=== PATIENT | male | born 1935 | race Caucasian/White ===

== ENCOUNTER → 2018-03-16 11:30 | Outpatient (CLI) | payer OTHER, SELFPAY ==
--- NOTE | 2018-03-16 | DI.RAD.S_ITS ---
PROCEDURE: XR CHEST 2V INDICATIONS: CHF TECHNIQUE: 2 views of the chest were acquired. COMPARISON: [facility], CT, ANGIO CHEST ABDOMEN PELVIS, 02/24/2018, 7:27. [facility], CR, CHEST FOR PICC PLACEMENT, 11/25/2017, 10:14. [facility], CR, CHEST 1 VIEW, 11/25/2017, 6:14. [facility], CT, PE STUDY (CTA CHEST), 11/24/2017, 9:44. [facility], CR, CHEST 1 VIEW, 11/24/2017, 7:38. [facility], CR, CHEST 1 VIEW, 07/07/2017, 14:15. [facility], CR, CHEST 1 VIEW, 11/05/2016, 16:07. [facility], CR, CHEST 1 VIEW, 11/29/2017, 10:32. FINDINGS: Surgical changes and devices: Sternal wires consistent with previous bypass procedure as well as bowel replacement are noted. Lungs and pleura: Minimal blunting of the costophrenic angles bilaterally, right. Unchanged calcified nodule overlying the left upper lobe. Mediastinum: Mediastinal contours are normal. Heart size is normal. Bones and chest wall: No suspicious bony abnormalities. Soft tissues appear unremarkable. IMPRESSION: Minimal effusions bilaterally. Dictated by: Dianne Lozano M.D. on 03/16/2018 at 15:30 Approved by: Dianne Lozano M.D. on 03/16/2018 at 15:30
[2018-03-16 12:34] LABS: BUN Creatinine Ratio 12.2 (6-22); Calcium 8.9 mg/dL (8.4-10.2); Estimated Glomerular Filt Rate > 60.0 mL/min (>60); Glucose 115 mg/dL (80-110); HEMOLYSIS < 15 (0-50); Potassium 5.4 mmol/L (3.4-5.1); Sodium 140 mmol/L (137-145)
[2018-03-16 12:37] LABS: Add Manual Diff / Slide Review NO; Basophils Percent Auto 0.8 % (0-2); Eosinophils Percent Auto 0.3 % (2-4); Hematocrit 36.6 % (41-53); Hemoglobin 12.1 g/dL (13.5-17.5); Lymphocytes Percent Auto 7.7 % (25-40); Mean Corpuscular HGB Conc 33.1 % (30-36); Mean Corpuscular Hemoglobin 27.9 PG (26-34); Mean Corpuscular Volume 84.4 fL (80-100); Monocytes Percent Auto 9.9 % (3-14); Neutrophils Absolute Auto 7600 /uL (3000-5900); Neutrophils Percent Auto 81.3 % (50-75); Platelet Count 454 X10^3/uL (150-400); Red Blood Cell Count 4.33 X10^6/uL (4.5-5.9); Red Cell Distribution Width 15.7 % (11.6-14.8); White Blood Cell Count 9.3 X10^3/uL (4.5-11.0)
== END ==
PROVIDERS: Family Provider Internal Medicine; PCP Internal Medicine; Visit Provider Internal Medicine
DX: I48.91 Unspecified atrial fibrillation (principal); R06.00 Dyspnea, unspecified; D50.0 Iron deficiency anemia secondary to blood loss (chronic); I50.9 Heart failure, unspecified
CPT/HCPCS: 36415; 71046; 80048; 83880; 85025

== ENCOUNTER → 2018-04-17 09:34 | Outpatient (CLI) | payer OTHER, SELFPAY ==
[2018-04-17 10:35] LABS: BUN Creatinine Ratio 15.6 (6-22); Blood Urea Nitrogen 14 mg/dL (9-20); Calcium 9.5 mg/dL (8.4-10.2); Carbon Dioxide 30 mmol/L (22-32); Chloride 97 mmol/L (98-107); Estimated Glomerular Filt Rate > 60.0 mL/min (>60); Glucose 109 mg/dL (80-110); HEMOLYSIS < 15 (0-50); Sodium 143 mmol/L (137-145)
== END ==
PROVIDERS: Family Provider Internal Medicine; PCP Internal Medicine; Visit Provider Internal Medicine Cardiovascular Disease
DX: I48.2 Chronic atrial fibrillation (principal)
CPT/HCPCS: 36415; 80048

== ENCOUNTER → 2018-04-28 08:18 | Outpatient (CLI) | payer OTHER, SELFPAY ==
--- NOTE | 2018-04-28 | DI.US.S_ITS ---
PROCEDURE: US ABDOMEN COMPLETE INDICATIONS: gallstones TECHNIQUE: Real-time scanning was performed of the abdominal and retroperitoneal organs, with image documentation. COMPARISON: [facility], MR, ABDOMEN WITHOUT CONTRAST, 02/24/2018, 12:31. [facility], US, ABDOMEN COMPLETE, 02/24/2018, 9:27. [facility], CT, ANGIO CHEST ABDOMEN PELVIS, 02/24/2018, 7:27. FINDINGS: Liver: The liver is normal in size and echogenicity. No focal liver lesions are evident. Gallbladder: The gallbladder is normal in size and contains at least 2 prominent gallstones measuring up to 3 cm in diameter. There also appears to be a 1 cm stone within the region of the neck of the gallbladder. Borderline thickening of the wall of the gallbladder is present there is no pericholecystic fluid. Biliary ducts: Intrahepatic bile ducts are non-dilated. Extrahepatic bile duct caliber measures 7 mm. Normal is 6-7 mm or less in diameter, or 10 mm or less post-cholecystectomy. Pancreas: Visualized portions of the pancreas are sonographically normal. Spleen: Spleen is normal in size and homogeneous in echotexture. Kidneys: Kidneys are normal in size and echotexture. Right kidney measures 11.5 cm long; left kidney measures 12.10 cm long. No hydronephrosis or shadowing nephrolithiasis. No solid masses. Aorta: Visualized aorta is normal in caliber at less than 3 cm. there is aortic atherosclerosis. Iliacs: Proximal common iliac arteries are normal in caliber at less than 2.5 cm. IVC: Intrahepatic inferior vena cava is patent. Miscellaneous: No free abdominal fluid. IMPRESSION: 1. Cholelithiasis with mild gallbladder wall thickening. Please for the clinically to exclude cholecystitis. 2. Unremarkable kidneys. No hydronephrosis. Dictated by: Eladio Mendez M.D. on 04/28/2018 at 10:46 Approved by: Eladio Mendez M.D. on 04/28/2018 at 10:50
== END ==
PROVIDERS: Family Provider Internal Medicine; PCP Internal Medicine; Visit Provider Internal Medicine
DX: K80.20 Calculus of gallbladder without cholecystitis without obstruction (principal)
CPT/HCPCS: 76700

== ENCOUNTER → 2018-05-11 10:27 | Outpatient (CLI) | payer OTHER, SELFPAY ==
[2018-05-11 11:22] LABS: Add Manual Diff / Slide Review NO; Basophils Percent Auto 0.7 % (0-2); Eosinophils Percent Auto 2.8 % (2-4); Hematocrit 32.8 % (41-53); Hemoglobin 10.3 g/dL (13.5-17.5); Lymphocytes Percent Auto 8.2 % (25-40); Mean Corpuscular HGB Conc 31.5 % (30-36); Mean Corpuscular Hemoglobin 25.3 PG (26-34); Mean Corpuscular Volume 80.4 fL (80-100); Monocytes Percent Auto 11.1 % (3-14); Neutrophils Absolute Auto 10200 /uL (3000-5900); Neutrophils Percent Auto 77.2 % (50-75); Platelet Count 362 X10^3/uL (150-400); Red Blood Cell Count 4.08 X10^6/uL (4.5-5.9); Red Cell Distribution Width 15.6 % (11.6-14.8); White Blood Cell Count 13.2 X10^3/uL (4.5-11.0)
[2018-05-11 11:57] LABS: Alanine Aminotransferase 20 IU/L (21-72); Albumin 4.3 g/dL (3.5-5.0); Albumin Globulin Ratio 1.2 (1.0-2.8); Alkaline Phosphatase 94 U/L (38-126); Aspartate Aminotransferase 19 IU/L (17-59); BUN Creatinine Ratio 22.2 (6-22); Bilirubin Total 0.3 mg/dL (0.2-1.3); Blood Urea Nitrogen 20 mg/dL (9-20); Calcium 9.4 mg/dL (8.4-10.2); Carbon Dioxide 32 mmol/L (22-32); Chloride 99 mmol/L (98-107); Estimated Glomerular Filt Rate > 60.0 mL/min (>60); Globulin 3.5 g/dL (1.7-4.1); Glucose 113 mg/dL (80-110); HEMOLYSIS < 15 (0-50); Lipase 89 U/L (23-300); Potassium 4.8 mmol/L (3.4-5.1); Sodium 143 mmol/L (137-145); Total Protein 7.8 g/dL (6.3-8.2)
== END ==
PROVIDERS: Surgery; Family Provider Internal Medicine; PCP Internal Medicine; Visit Provider Internal Medicine
DX: K85.90 Acute pancreatitis without necrosis or infection, unspecified (principal)
CPT/HCPCS: 36415; 80053; 83690; 85025

== ENCOUNTER 2018-05-16 14:11 | Day surgery (SDC) | payer OTHER, SELFPAY ==
[2018-05-15 11:07] VITALS: BMI 25.0
[2018-05-16] VITALS (8 sets, daily range): BP systolic 114–137; BP diastolic 48–73; PULSE 67–96; RESP 14–87; TEMP 36.2–36.7; O2SAT 94–98; BMI 25.0
[2018-05-16] MEDS: LACTATED RINGERS 1,000 ML 100 ML IV (15:05)
--- NOTE | 2018-05-16 16:12 | PM.PREOP ---
Pre-operative Note Interval Note Pre-op Check: Yes History & Physical Reviewed by Physician and Yes Exam Performed Changes: No
[2018-05-16] MEDS: CEFAZOLIN 2 GM/100 ML FROZ.PIGGY IV (16:25)
--- NOTE | 2018-05-16 16:49 | SUR.OPER ---
Supine on padded OR bed, head on pillow, arms secured on padded arm boards at <90 degrees abduction, legs uncrossed, safety belt at thigh, tape over blanket over lower legs, foot board.
[2018-05-16] MEDS: BUPIVACAINE 0.5% (PF) 30 ML VIAL INJ (17:00)
[2018-05-16] MEDS: LIDOCAINE 1% W/EPI INJ 20 ML INJ (17:01)
--- NOTE | 2018-05-16 18:07 | PM.OP.1 ---
Operative Date/Time/Diagnoses Date of procedure: 05/16/18 Time of procedure: 18:08 Pre-op diagnosis: Chronic cholecystitis secondary to cholelithiasis with history of gallstone pancreatitis Post-op diagnosis: same Procedure & Clinicians Procedure: 1. Laparoscopic cholecystectomy 2. Incidental repair of umbilical hernia incorporated into closure of umbilical incision at trocar site Same procedure as scheduled: Yes Indications: 82-year-old male with recent episode of severe gallstone pancreatitis approximately 3 months ago now subsequently resolved with conservative management. He was found to have significant cholelithiasis, and he remains somewhat symptomatic with statistical risk of recurrent pancreatitis or choledocholithiasis. Therefore laparoscopic cholecystectomy was recommended electively. Surgeon: José Apple Click Yes if Unassisted: Yes Anesthesia Type: General Operative Notes Findings: 1. Chronic cholecystitis as evidenced by significant adhesions between omentum and thickened gallbladder 2. Evidence of smoldering acute cholecystitis due to gallbladder wall edema noted during the dissection 3. Granulomatous liver but without obvious lesions 4. Small 1 cm umbilical hernia defect noted to be at the inferior aspect of the umbilical trocar incision 5. Significant cholelithiasis with multiple extremely large and other small stones Closure Type: primary Specimen(s): other (Gallbladder) Implants & Drains: None Estimated Blood Loss (mL): 40 Blood products transfused: none Procedure in detail: After obtaining informed consent the patient was brought to the operating room placed supine on the table. After satisfactory induction of anesthesia the abdomen was prepped and draped in usual sterile fashion. A SCOAP time-out was performed per standard protocol. A 1 :1 mixture 1% lidocaine with 1 100,000 epinephrine and 0.5% plain Marcaine was injected in the skin and subcutaneous tissue at the superior aspect of the umbilicus for postoperative analgesia. Vertical midline incision was created for distance of approximately 3 cm at the superior aspect of the umbilicus using a 11 scalpel blade. Blunt dissection revealed the rectus fascia which was divided in the midline with a 11. Scalpel blade under direct visualization. The adjacent hernia defect was subsequently incorporated into the incision using Metzenbaum scissors. Pina clamps were used to secure the edges of the fascia bilaterally and elevated into the operative field. Interrupted 0 Vicryl suture were then placed superiorly and inferiorly along the fascia and secured with hemostats. Underlying peritoneum was visualized and entered under direct visualization with Roselyn clamp. A blunt 12 mm James trocar was inserted and a carbon dioxide pneumoperitoneum created after sweeping the he is in those from the umbilical hernia bluntly with the surgeon's finger. Abdomen was visually explored with a 30 degree 5 mm trocar. Findings are as above. Under direct laparoscopic visualization site was chosen for placement of a epigastric 5 mm trocar after placing the patient in reverse Trendelenburg position. Local anesthesia was achieved and the skin incision created with 11 scalpel blade followed by insertion of the 5 mm trocar under laparoscopic visualization. In a similar fashion to individual 5 mm trocars were placed in the right lateral abdomen. Ratcheted grasper was used to secure the fundus of the gallbladder which was just visible above the significant adhesions in the right upper quadrant. Fundus of the gallbladder was then retracted medially and superiorly over the liver edge. A Bret grasper as well as Maryland dissector were used to take down the adhesions meticulously off of the gallbladder wall. Hemostasis was achieved with the monopolar cautery. Meticulous dissection in the triangle of Calot was then performed with a combination of the Maryland dissector and the Kittner dissector. The dissection was somewhat difficult due to the significant adhesions but the structures were eventually identified and skeletonized of overlying tissue. Cystic duct was clearly identified and encircled thereby isolating the structure and clearly visualizing its junction with the infundibulum of the gallbladder. The critical view of the liver bed through the avascular window between the cystic duct and cystic artery was clearly achieved. Cystic artery was cleared of overlying tissue in a similar fashion. Three clips were placed proximally on the cystic duct and 3 clips placed proximally on the cystic artery. One clip was placed distally on each structure at its junction with the gallbladder. Laparoscopic scissors was employed to divide the structures. Monopolar cautery was then used to dissect the gallbladder from its attachment to the liver bed. Should note that there were dense adhesions, particularly at the fundus of the gallbladder, that made removing the gallbladder itself quite difficult from this portion of the liver bed. The 2 structures were densely adherent. Gallbladder was eventually liberated without violating the lumen. There was no bile spillage. Gallbladder was placed in an endo-pouch and retrieved through the umbilical incision. I should note that the fascial incision had to be significantly lengthened in order to remove the thickened gallbladder with its associated multiple large gallstones. Specimen was sent for permanent section. Liver bed was irrigated with copious amount sterile saline solution and hemostasis achieved with the monopolar cautery. Meticulous examination showed the clips to be in good position on the cystic duct and cystic artery. Hemostasis was verified and there was absolutely no evidence of bile leak. Again, the liver bed was also meticulously examined and noted to be hemostatic. Patient was returned to the supine position in the right upper quadrant was irrigated with copious amounts of sterile saline solution which was suctioned and noted to be clear. Instruments and trocars were removed under direct visualization and hemostasis verified. Carbon dioxide was evacuated. Fascia at the length and umbilical incision was closed with a total of 4 individual interrupted 0 Vicryl suture. Again, the hernia defect was repaired primarily as part of the closure. Skin at all 4 incisions was then closed in a running subcuticular fashion with 4 0 Monocryl suture. Dermal adhesive was placed on the skin. Anesthesia was reversed and patient extubated in the operating room. He was taken recovery in stable condition. Complications: none Condition: stable Disposition: PACU Plan for aftercare: 1. Discharge to home 2. Follow up in surgery Clinic in 2 weeks
--- NOTE | 2018-05-16 18:33 | SUR.PHASEI ---
stable pacu stay, pt still needing minimal 02, to opd, abdomen with glue intact, capstick to lips.
--- NOTE | 2018-05-16 18:54 | SUR.PHASEII ---
PT BROUGHT TO [facility], DAUGHTERS CALLED. ON WEANING OFF. AWAKE DRINKING COFFEE NO PAIN NO NAUSEA, ABDOMEN WITH INTACT INCISIONS.
--- NOTE | 2018-05-16 19:33 | SUR.PHASEII ---
daughters arrived, all voiced an understanding of d/c instructions, pt given an incentive spirometer to help prevent pneumonia, pt used in the recent past. assisted pt to dress when ready to leave, pt left in stable condition.
== END 2018-05-16 19:30 | disposition home or self-care (01) ==
PROVIDERS: PCP Internal Medicine; Visit Provider Surgery
PROC: 0FT44ZZ Resection of Gallbladder, Percutaneous Endoscopic Approach (ICD-10-PCS; CPT 47562; principal; 2018-05-16 14:45)
DX: K80.10 Calculus of gallbladder with chronic cholecystitis without obstruction (principal); K42.9 Umbilical hernia without obstruction or gangrene; K66.0 Peritoneal adhesions (postprocedural) (postinfection)
CPT/HCPCS: 47562; J0690; J2405; J2704; J3010

== ENCOUNTER 2018-05-21 11:45 | Emergency (ER) | payer OTHER, SELFPAY ==
[2018-05-21] VITALS (9 sets, daily range): BP systolic 115–152; BP diastolic 49–87; PULSE 92–152; RESP 13–23; TEMP 36.8–36.9; O2SAT 94–98; BMI 25.0
[2018-05-21 12:29] LABS: Add Manual Diff / Slide Review NO; Basophils Percent Auto 0.4 % (0-2); Eosinophils Percent Auto 0.5 % (2-4); Hematocrit 28.1 % (41-53); Hemoglobin 8.8 g/dL (13.5-17.5); Lymphocytes Percent Auto 6.7 % (25-40); Mean Corpuscular HGB Conc 31.4 % (30-36); Mean Corpuscular Hemoglobin 24.6 PG (26-34); Mean Corpuscular Volume 78.5 fL (80-100); Monocytes Percent Auto 10.4 % (3-14); Neutrophils Absolute Auto 10800 /uL (3000-5900); Platelet Count 424 X10^3/uL (150-400); Red Blood Cell Count 3.58 X10^6/uL (4.5-5.9); Red Cell Distribution Width 16.1 % (11.6-14.8); White Blood Cell Count 13.2 X10^3/uL (4.5-11.0)
[2018-05-21 12:41] LABS: INR 1.3 (0.9-1.3); Prothrombin Time 14.6 SECONDS (10.1-12.7)
[2018-05-21 12:44] LABS: PTT Partial Thromboplastin Tim 29 SECONDS (26.4-36.2)
[2018-05-21 12:45] LABS: Alanine Aminotransferase 22 IU/L (21-72); Albumin 4.2 g/dL (3.5-5.0); Albumin Globulin Ratio 1.4 (1.0-2.8); Alkaline Phosphatase 122 U/L (38-126); Aspartate Aminotransferase 24 IU/L (17-59); BUN Creatinine Ratio 21.3 (6-22); Bilirubin Total 0.5 mg/dL (0.2-1.3); Blood Urea Nitrogen 17 mg/dL (9-20); Calcium 8.6 mg/dL (8.4-10.2); Carbon Dioxide 32 mmol/L (22-32); Chloride 96 mmol/L (98-107); Estimated Glomerular Filt Rate > 60.0 mL/min (>60); Globulin 3.1 g/dL (1.7-4.1); Glucose 138 mg/dL (80-110); HEMOLYSIS < 15 (0-50); Lactate (Lactic Acid) 2.2 mmol/L (0.7-2.1); Lipase 130 U/L (23-300); Potassium 3.8 mmol/L (3.4-5.1); Sodium 139 mmol/L (137-145); Total Protein 7.3 g/dL (6.3-8.2)
[2018-05-21] MEDS: SODIUM CHLORIDE 0.9% 1,000 ML 1000 ML IV (13:00)
[2018-05-21] MEDS: PANTOPRAZOLE 40 MG VIAL IV (13:05)
[2018-05-21 16:23] LABS: Reflexed Lactate in 2 Hours Y
[2018-05-21 16:49] LABS: Lactate 2HR (Lactic Acid Rflx) 0.8 mmol/L (0.7-2.1)
--- NOTE | 2018-05-21 17:04 | ED_ITS ---
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 Patient denies chest pain, shortness breath, history of liver disease, EtOH abuse, anticoagulation, or antiplatelet medication use. M/S/F/SocHx notable for: mechanical aortic valve, atrial fibrillation/atrial flutter, pancreatitis, hepatitis C infection, hyperparathyroidism, pulmonary emphysema, rheumatoid arthritis, microcytic anemia; remainder reviewed with patient and in chart. ROS: Negative constitutional, eye, cardiovascular, pulmonary, GI, , MSK, skin , neurologic, psychiatric, endocrine unless noted in the HPI. Exam Gen: Pleasant, non-toxic appearing, resting comfortably. HEENT: NC, AT, PEERL, EOMI. Resp: Clear to auscultation bilaterally, normal work of breathing, no accessory muscle usage. Card: tachycardic, irregular rate and rhythm with no murmurs, rubs, or gallops, extremities warm and well perfused. GI: Non-tender to palpation throughout all quadrants, no focal tenderness at McBurney's point, negative Shah's sign, non-distended, no rebound or guarding. : No suprapubic tenderness to palpation. MSK: No visible deformities, strength and tone without visually appreciable deficit. Skin: Normal color with no visible lesions. Neuro: AO x 3, no facial asymmetry, vision and hearing WNL. Psych: Mood and affect appropriate. Labs / Imaging: WBC 13.2, HB 8.8, PT/INR 1.3, sodium 139, potassium 3.8, lactic acid 2.2 FOBT pending EKG: SR 93 bpm, frequent PACs and PVCs. No significant ST segment elevations or depressions. MDM Previous chart, nursing note, labs, imaging, and vitals reviewed. 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 Evaluation: given the history of indolent GI bleed with a recent increase in dark tarry stools, new anemia, and absence of a variceal history suspect AVMs. Type and screen sent, patient with normalization of tachycardia with 1 L NS given, protonix also given. Patient accepted in transfer to [place] for further care and evaluation. Impression: suspected GI bleed. (please reference below for remainder of encounter information) Related Data Home Medications Medication Instructions Recorded Confirmed atorvastatin [Lipitor] 20 mg PO HS #0 05/16/17 05/21/18 loratadine 10 mg PO QDAY #0 07/07/17 05/21/18 cyanocobalamin (vitamin B-12) 100 mcg PO QDAY #0 11/24/17 05/21/18 [Vitamin B-12] lorazepam 1 mg PO HSP PRN #0 11/24/17 05/21/18 multivitamin [Multiple Vitamins] 1 tab PO QDAY #0 11/24/17 05/21/18 amitriptyline 25 mg tablet 25 mg PO BEDTIME 05/11/18 05/21/18 ascorbic acid (vitamin C) [Vitamin 500 mg PO BID 05/21/18 05/21/18 C] cholecalciferol (vitamin D3) 2,000 unit PO DAILY 05/21/18 05/21/18 [Vitamin D3] cyanocobalamin (vitamin B-12) 100 mcg PO DAILY 05/21/18 05/21/18 [Vitamin B-12] diltiazem HCl 180 mg PO BID 05/21/18 05/21/18 famotidine 20 mg PO BID 05/21/18 05/21/18 metoprolol succinate [Toprol XL] 50 mg PO DAILY 05/21/18 05/21/18 metoprolol succinate [Toprol XL] 100 mg PO BID 05/21/18 05/21/18 Previous Rx's Medication Instructions Recorded furosemide [Lasix] 20 mg PO QDAY #30 tab 11/30/17 Allergies Allergy/AdvReac Type Severity Reaction Status Date / Time aspirin [ASPIRIN] Allergy Intermediate HIVES, Verified 05/16/18 15:06 EARS RING lactose [LACTOSE] Allergy Unknown Verified 05/16/18 15:06 PFSH Medical History Acquired arteriovenous malformation of stomach (Acute) Aortic valvular stenosis (Acute) Atrial fibrillation (Acute) Cholelithiasis (Acute) Chronic obstructive pulmonary disease (Acute) Gallstone pancreatitis (Acute) Generalized anxiety disorder (Acute) History of gastrointestinal hemorrhage (Acute) History of tobacco abuse (Acute) Hyperlipidemia (Acute) Hypertension (Acute) Restrictive lung disease (Acute) Rheumatoid arthritis (Acute) Surgical History History of aortic valve replacement (Acute) History of colonoscopy (Acute) History of esophagogastroduodenoscopy (EGD) (Acute) History of sinus surgery (Acute) History of tricuspid valve annuloplasty (Acute) Status post mitral valve annuloplasty (Acute) H/O sinus surgery (Resolved) History of tonsillectomy (Resolved) Social History household members: none Smoking Status: Former smoker Tobacco: How many years used: 60 alcohol intake: former substance use type: does not use Exam Initial Vital Signs Initial Vital Signs: Vital Signs Temperature 98.2 F 05/21/18 11:56 Pulse Rate 152 H 05/21/18 11:56 Respiratory Rate 22 05/21/18 11:56 Blood Pressure 141/74 H 05/21/18 11:56 Pulse Oximetry 96 05/21/18 11:56 Course Orders Ordered: ED Orders 05/21/18 11:50 Complete Blood Count AUTO DIFF Stat Comprehensive Metabolic Panel Stat Lactate (Lactic Acid) Stat Lipase Stat Partial Thromboplastin Time Stat Prothrombin Time INR Stat Type and Screen Stat 05/21/18 11:53 EKG-12 Lead Stat 05/21/18 13:19 EKG-12 Lead Stat 05/21/18 16:30 Lactate 4HR (Lactic Acid Rflx) Stat Discontinued Medications Sodium Chloride (Normal Saline 0.9%) 1,000 mls @ 1,000 mls/hr IV BOLUS ONE Stop: 05/21/18 13:33 Last Infusion: 05/21/18 15:23 Dose: 0 mls/hr Admin: 05/21/18 13:00 Dose: 1,000 mls/hr Pantoprazole Sodium (Protonix) 40 mg IV NOW ONE Stop: 05/21/18 13:05 Last Admin: 05/21/18 13:05 Dose: 40 mg Vital Signs - 8 hr 05/21/18 11:56 05/21/18 12:07 05/21/18 12:30 Temperature 98.2 F Pulse Rate 152 H 132 H 112 H Respiratory Rate 22 18 18 Blood Pressure 141/74 H Blood Pressure [Right Arm] 152/87 H 116/67 Pulse Oximetry 96 98 96 05/21/18 13:00 05/21/18 13:40 05/21/18 16:00 Temperature Pulse Rate 95 H 103 H 101 H Respiratory Rate 21 17 23 Blood Pressure Blood Pressure [Right Arm] 115/75 128/49 H 125/58 H Pulse Oximetry 97 96 98 MDM - Abdominal Pain Lab Data Result diagrams: 05/21/18 11:50 05/21/18 11:50 Lab Results 05/21/18 05/21/18 05/21/18 Range/Units 11:50 11:50 11:50 WBC 13.2 H (4.5-11.0) X10^3/uL RBC 3.58 L (4.5-5.9) X10^6/uL Hgb 8.8 L (13.5-17.5) g/dL Hct 28.1 L (41-53) % MCV 78.5 L (80-100) fL MCH 24.6 L (26-34) PG MCHC 31.4 (30-36) % RDW 16.1 H (11.6-14.8) % Plt Count 424 H (150-400) X10^3/uL Neut % (Auto) 82.0 H (50-75) % Lymph % (Auto) 6.7 L (25-40) % Motley % (Auto) 10.4 (3-14) % Eos % (Auto) 0.5 L (2-4) % Baso % (Auto) 0.4 (0-2) % Neut # (Auto) 50575 H (1671-5296) /uL PT 14.6 H (10.1-12.7) SECONDS INR 1.3 (0.9-1.3) APTT 29 (26.4-36.2) SECONDS Sodium 139 (137-145) mmol/L Potassium 3.8 (3.4-5.1) mmol/L Chloride 96 L (98-107) mmol/L Carbon Dioxide 32 (22-32) mmol/L BUN 17 (9-20) mg/dL Creatinine 0.80 (0.66-1.25) mg/dL Estimated GFR > 60.0 (>60) mL/min BUN/Creatinine Ratio 21.3 (6-22) Glucose 138 H (80-110) mg/dL Lactate (0.7-2.1) mmol/L Calcium 8.6 (8.4-10.2) mg/dL Total Bilirubin 0.5 (0.2-1.3) mg/dL AST 24 (17-59) IU/L ALT 22 (21-72) IU/L Alkaline Phosphatase 122 (38-126) U/L Total Protein 7.3 (6.3-8.2) g/dL Albumin 4.2 (3.5-5.0) g/dL Globulin 3.1 (1.7-4.1) g/dL Albumin/Globulin Ratio 1.4 (1.0-2.8) Lipase 130 (23-300) U/L Blood Type Antibody Screen 05/21/18 05/21/18 05/21/18 Range/Units 11:50 11:50 16:30 WBC (4.5-11.0) X10^3/uL RBC (4.5-5.9) X10^6/uL Hgb (13.5-17.5) g/dL Hct (41-53) % MCV (80-100) fL MCH (26-34) PG MCHC (30-36) % RDW (11.6-14.8) % Plt Count (150-400) X10^3/uL Neut % (Auto) (50-75) % Lymph % (Auto) (25-40) % Motley % (Auto) (3-14) % Eos % (Auto) (2-4) % Baso % (Auto) (0-2) % Neut # (Auto) (8421-8299) /uL PT (10.1-12.7) SECONDS INR (0.9-1.3) APTT (26.4-36.2) SECONDS Sodium (137-145) mmol/L Potassium (3.4-5.1) mmol/L Chloride (98-107) mmol/L Carbon Dioxide (22-32) mmol/L BUN (9-20) mg/dL Creatinine (0.66-1.25) mg/dL Estimated GFR (>60) mL/min BUN/Creatinine Ratio (6-22) Glucose (80-110) mg/dL Lactate 2.2 H 0.8 (0.7-2.1) mmol/L Calcium (8.4-10.2) mg/dL Total Bilirubin (0.2-1.3) mg/dL AST (17-59) IU/L ALT (21-72) IU/L Alkaline Phosphatase (38-126) U/L Total Protein (6.3-8.2) g/dL Albumin (3.5-5.0) g/dL Globulin (1.7-4.1) g/dL Albumin/Globulin Ratio (1.0-2.8) Lipase (23-300) U/L Blood Type O Positive Antibody Screen Negative Discharge Plan Departure Prescriptions: No Action atorvastatin [Lipitor] 20 MG tablet 20 mg PO HS Qty: 0 RF: 0 loratadine 10 MG tablet 10 mg PO QDAY Qty: 0 RF: 0 multivitamin [Multiple Vitamins] 1 EACH tablet 1 tab PO QDAY Qty: 0 RF: 0 cyanocobalamin (vitamin B-12) [Vitamin B-12] 50 MCG lozenge 100 mcg PO QDAY Qty: 0 RF: 0 lorazepam 1 MG tablet 1 mg PO HSP PRN (Reason: Sleep) Qty: 0 RF: 0 furosemide [Lasix] 20 MG tablet 20 mg PO QDAY Qty: 30 RF: 12 amitriptyline 25 mg tablet 25 mg PO BEDTIME RF: 0 cyanocobalamin (vitamin B-12) [Vitamin B-12] 100 mcg Tablet 100 mcg PO DAILY RF: 0 metoprolol succinate [Toprol XL] 100 mg Tablet Extended Release 24 Hr 50 mg PO DAILY RF: 0 ascorbic acid (vitamin C) [Vitamin C] 500 mg Tablet 500 mg PO BID RF: 0 cholecalciferol (vitamin D3) [Vitamin D3] 1,000 unit Tablet 2,000 unit PO DAILY RF: 0 diltiazem HCl 180 MG capsule,extended release 24hr 180 mg PO BID RF: 0 metoprolol succinate [Toprol XL] 100 MG tablet extended release 24 hr 100 mg PO BID RF: 0 famotidine 20 mg Tablet 20 mg PO BID RF: 0
== END 2018-05-21 20:00 | disposition short-term general hospital (02) ==
PROVIDERS: Emergency Provider Emergency Medicine; PCP Internal Medicine
DX: K92.2 Gastrointestinal hemorrhage, unspecified (principal)
CPT/HCPCS: 36415; 36591; 80053; 83605; 83690; 85025; 85610; 85730; 86850; 86900; 86901; 93005; 96361; 96374; 99284; 99285; C9113

== ENCOUNTER → 2018-06-29 08:25 | Outpatient (CLI) | payer OTHER, SELFPAY ==
[2018-06-29 10:30] LABS: Estimated Glomerular Filt Rate > 60.0 mL/min (>60)
== END ==
PROVIDERS: PCP Internal Medicine; Visit Provider Physician Assistant
DX: Z87.19 Personal history of other diseases of the digestive system (principal)
CPT/HCPCS: 36415; 82565

== ENCOUNTER → 2018-06-30 07:46 | Outpatient (CLI) | payer OTHER, SELFPAY ==
--- NOTE | 2018-06-30 09:02 | DI.CT.S_ITS ---
PROCEDURE: CT ABDOMEN PELVIS W CON INDICATIONS: HISTORY OF PANCREATITIS. Patient states possible stomach mass. TECHNIQUE: After the administration of oral and intravenous contrast, 5 mm thick sections acquired from the diaphragms to the symphysis. 5 mm thick coronal and sagittal reformats were performed. For radiation dose reduction, the following was used: automated exposure control, adjustment of mA and/or kV according to patient size. COMPARISON: None. FINDINGS: Image quality: Excellent. ABDOMEN: Lung bases: Lung bases are clear. Heart size is normal. Solid organs: Liver demonstrates a mildly nodular contour and is mildly hypoattenuating relative to the spleen. Gallbladder surgically absent. No intrahepatic or extrahepatic biliary ductal dilatation. The pancreas and spleen are unremarkable. There is mild thickening of the left adrenal gland relative to the right. Subcentimeter hypodense foci within the left kidney are too small fully characterize on this exam but likely represent renal cysts. No hydronephrosis or nephrolithiasis. Peritoneum and bowel: Diffuse colonic diverticulosis without evidence of acute diverticulitis. No free fluid or air. Nodes and vessels: No retroperitoneal or mesenteric adenopathy. Aorta and inferior vena cava are normal in caliber. Severe calcified and noncalcified plaque along the abdominal aorta and branch vessels. Miscellaneous: No ventral hernias. PELVIS: Genitourinary: Bladder wall thickness is normal. Miscellaneous: There are small bilateral fat-containing inguinal hernias. Bones: There is a T11 superior endplates Schmorl's node. There are mild multilevel degenerative changes of the spine. A posterior disc osteophyte complex at L5-S1 results in mild spinal canal stenosis at this level. IMPRESSION: #1. No CT evidence of acute pancreatitis. #2. No convincing CT evidence of a gastric mass (with regards to patient provided history). Consider followup esophagogastroduodenoscopy if there is continued clinical concern, if one has not been recently performed. Dictated by: Rodriguez Ortega M.D. on 06/30/2018 at 11:26 Approved by: Rodriguez Ortega M.D. on 06/30/2018 at 11:39
== END ==
PROVIDERS: Family Provider Internal Medicine; PCP Internal Medicine; Visit Provider Physician Assistant
DX: Z09 Encounter for follow-up examination after completed treatment for conditions other than malignant neoplasm (principal); K57.90 Diverticulosis of intestine, part unspecified, without perforation or abscess without bleeding; K40.20 Bilateral inguinal hernia, without obstruction or gangrene, not specified as recurrent; Z90.49 Acquired absence of other specified parts of digestive tract; Z87.19 Personal history of other diseases of the digestive system
CPT/HCPCS: 74177; Q9967

== ENCOUNTER → 2018-09-08 13:30 | Oncology outpatient (ONC) | payer OTHER, SELFPAY ==
[2018-08-29] MEDS: IRON SUCROSE 200 MG in SODIUM CHLORIDE 0.9% 100 ML 220 ML IV (14:44)
[2018-08-29 14:48] VITALS: BP 135/69; PULSE 93; RESP 16; TEMP 36.7
[2018-08-31 13:24] VITALS: BP 132/77; PULSE 93; RESP 18; TEMP 37.1; O2SAT 97
[2018-08-31] MEDS: IRON SUCROSE 200 MG in SODIUM CHLORIDE 0.9% 100 ML 220 ML IV (13:49)
[2018-09-04 13:24] VITALS: BP 120/57; PULSE 70; RESP 16; TEMP 36.5; O2SAT 97
[2018-09-04] MEDS: IRON SUCROSE 200 MG in SODIUM CHLORIDE 0.9% 100 ML 220 ML IV (13:52)
[2018-09-06] MEDS: IRON SUCROSE 200 MG in SODIUM CHLORIDE 0.9% 100 ML 220 ML IV (14:04)
[2018-09-06 14:13] VITALS: BP 117/57; PULSE 70; RESP 16; TEMP 36.7; O2SAT 97
[2018-09-08] MEDS: IRON SUCROSE 200 MG in SODIUM CHLORIDE 0.9% 100 ML 220 ML IV (14:09)
[2018-09-08 14:14] VITALS: BP 118/61; PULSE 68; RESP 20; TEMP 36.9; O2SAT 97
== END ==
PROVIDERS: Family Provider Internal Medicine; PCP Internal Medicine; Visit Provider Internal Medicine
DX: D50.9 Iron deficiency anemia, unspecified (principal)
CPT/HCPCS: 96365; J1756

== ENCOUNTER → 2018-10-16 08:04 | Outpatient (CLI) | payer OTHER, SELFPAY ==
[2018-10-16 09:45] LABS: BUN Creatinine Ratio 16.4 (6-22); Blood Urea Nitrogen 18 mg/dL (9-20); Calcium 9.1 mg/dL (8.4-10.2); Carbon Dioxide 32 mmol/L (22-32); Chloride 97 mmol/L (98-107); Estimated Glomerular Filt Rate > 60.0 mL/min (>60); Glucose 140 mg/dL (80-110); HEMOLYSIS < 15 (0-50); Potassium 4.7 mmol/L (3.4-5.1); Sodium 142 mmol/L (137-145)
== END ==
PROVIDERS: Family Provider Internal Medicine; PCP Internal Medicine; Visit Provider Internal Medicine Cardiovascular Disease
DX: I10 Essential (primary) hypertension (principal)
CPT/HCPCS: 36415; 80048

== ENCOUNTER 2018-12-01 05:46 | Observation (INO) | payer OTHER, SELFPAY ==
[2018-12-01] VITALS (18 sets, daily range): BP systolic 113–162; BP diastolic 46–100; PULSE 70–130; RESP 17–32; TEMP 35.9–37; O2SAT 90–96; BMI 24.4; BMI 24.0
--- NOTE | 2018-12-01 | DI.ECHO.S_ITS ---
[facility] +---------+ : : [address] [place] : : : : [id number] : : : : Phone: [phone]+ Echocardiogram Report + + :Name: ADRIAN SOOD Study Date: 12/01/2018 Height: 72 in : :[facility] Weight: 177 lb : : Gender: Male BSA: 2.0 m2 : :: 1935 Age: 83 yrs BP: 129/62 mmHg: :Reason For Study: Congestive Heart Failure : :Ordering Physician: Dr. Bedolla : :Stickle Performed By: Kari Mendoza : :Referring: Airam Sánchez : + + Interpretation Summary Left ventricular systolic function is borderline reduced with the ejection fraction visually estimated to be 45-50% with a mild dyssynchronous contraction pattern, consistent with a conduction abnormality. There has been no significant change since the previous study. The right ventricle is normal size but right ventricular systolic function is mildly reduced and appears slightly less dynamic compared to the previous study. The right ventricular systolic pressure is estimated to be at least 41 mmHg based on an estimated right atrial pressure of 3 mm Hg, and it is likely similar to the previous study although the CVP appears to be significantly lower. The left atrium is mildly dilated. Right atrial size is normal but has mildly increased in size compared to the previous study. An annuloplasty ring is noted in the mitral position with mild mitral regurgitation that is unchanged compared to the previous study. An annuloplasty ring is noted in the tricuspid position with mild tricuspid regurgitation that is also unchanged from the previous study. 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 There has been no significant change since the previous study. The ascending aorta is mildly enlarged but is unchanged compared to the previous study. The patient was in atrial flutter with heart rates between 70-80 bpm during the exam which is unchanged compared to the previous study. Procedure: A two-dimensional transthoracic echocardiogram with color flow and Doppler was performed. The study quality was technically adequate. Comparison is made with the echocardiogram of 11-28-17. The patient was in atrial flutter with heart rates between 70-80 bpm during the exam. This is unchanged compared to the previous study. Left Ventricle: The left ventricle is mildly dilated. There is normal left ventricular wall thickness. Left ventricular systolic function is borderline reduced. The ejection fraction is estimated to be 45-50%. There is a mild dyssynchronous contraction pattern, consistent with a conduction abnormality. There are no focal wall motion abnormalities. This is similar compared to the previous study. Diastolic function could not be accurately assessed due to atrial fibrillation. There has been no significant change since the previous study. Right Ventricle: The right ventricle is normal size. Right ventricular systolic function is mildly reduced. This is slightly less dynamic compared to the previous study. Atria: The left atrium is mildly dilated. Right atrial size is normal. This is mildly increased in size compared to the previous study. The interatrial septum is intact with no evidence for an atrial septal defect. Mitral Valve: The mitral valve leaflets appear normal. There is no evidence of stenosis, fluttering, or prolapse. An annuloplasty ring is noted in the mitral position. There is no mitral valve stenosis. There is mild mitral regurgitation. This is unchanged compared to the previous study. Aortic Valve: There is a bioprosthetic aortic valve. The prosthetic aortic valve is well-seated. The gradients through the prosthetic aortic valve are within the normal range for this type of valve. This is unchanged compared to the previous study. The calculated aortic valve area is 1.3 cm2. The peak aortic velocity is 2.5 m/sec. The peak aortic velocity on the previous exam was 2.8 m/sec. The aortic valve mean gradient is 12 mmHg. Severity rastio is 0.29. No aortic regurgitation is present. There has been no significant change since the previous study. Tricuspid Valve: The tricuspid valve leaflets are thin and pliable. An annuloplasty ring is noted in the tricuspid position. There is mild tricuspid regurgitation. The right ventricular systolic pressure is estimated to be at least 41 mmHg based on an estimated right atrial pressure of 3 mm Hg. This is similar compared to the previous study. Pulmonic Valve: The pulmonic valve is normal in structure and function. There is trace pulmonic regurgitation. Great Vessels: The aortic root is normal size. The ascending aorta is mildly enlarged. This is unchanged compared to the previous study. The aortic arch could not be visualized. The IVC is of normal diameter and collapses greater than 50% with a sniff. This suggests a low right atrial pressure of 3 mm Hg. Pericardium/ Pleura There is no pericardial effusion. There is no pleural effusion. MMode/2D Measurements & Calculations LVIDd: 5.9 cm LVOT diam: 2.4 cm LVIDs: 4.3 cm Ao root diam: 3.4 cm FS: 26.3 % Aortic Jxn: 2.8 cm EPSS: 1.2 cm asc Aorta Diam: 3.7 cm IVSd: 0.99 cm LVPWd: 0.89 cm LV vee. diameter/BSA (cm/m^2): 2.9 LV sys. diameter/BSA (cm/m^2): 2.1 LA dimension: 4.2 cm RA long axis: 5.3 cm LA A2 area: 22.6 cm2 RA area: 19.7 cm2 LA A4 area: 24.2 cm2 RA vol: 62.1 ml LA length (vol): 6.1 cm RA : 30.7 ml/m2 LA vol: 75.6 ml IVC diam: 1.9 cm LA vol index: 37.4 ml/m2 RVDd major: 6.9 cm RVD1 (basal): 3.6 cm RVD2 (mid): 3.0 cm Doppler Measurements & Calculations Ao V2 max: 247.8 cm/sec LVOT Max Thomas: 82.4 cm/sec Ao V2 mean: 160.0 cm/sec LV V1 max P.7 mmHg Ao max P.6 mmHg LV V1 VTI: 15.9 cm Ao mean P.4 mmHg HECTOR(I,D): 1.3 cm2 Ao V2 VTI: 54.1 cm HECTOR(V,D): 1.5 cm2 sev ratio: 0.29 HECTOR indexed to BSA (cm^2/m^2): 0.66 MV E max thomas: 154.0 cm/sec TR max thomas: 306.2 cm/sec MV A max thomas: 71.2 cm/sec TR max P.5 mmHg MV E/A: 2.2 PA V2 max: 71.5 cm/sec Med Peak E' Thomas: 4.9 cm/sec PA V2 mean: 46.1 cm/sec E/E' med: 31.1 PA mean P.0 mmHg Lat Peak E' Thomas: 6.0 cm/sec PA Accel Time: 0.13 sec E/E' lat: 25.7 E/e' average: 28.4 MV dec time: 0.31 sec MV P1/2t: 95.3 msec MV P1/2t max thomas: 156.3 cm/sec SV(LVOT): 71.7 ml MVA(P1/2t): 2.3 cm2 Reading Physician:CAROL
[2018-12-01] MEDS: dilTIAZem 5 MG/ML SDV 10 MG IV (06:00)
--- NOTE | 2018-12-01 06:04 | DI.RAD.S_ITS ---
PROCEDURE: XR CHEST 1V INDICATIONS: dyspnea TECHNIQUE: One view of the chest was acquired. COMPARISON: [facility], CR, XR CHEST 2V, 03/16/2018, 11:23. FINDINGS: Surgical changes and devices: Median sternotomy and valvuloplasty changes. Lungs and pleura: Lungs are clear. No pleural effusions or pneumothorax. Mediastinum: Mediastinal contours appear normal. Heart size is normal. Bones and chest wall: No suspicious bony lesions. Overlying soft tissues appear unremarkable. IMPRESSION: 1. No acute process. 2. Postsurgical changes to the heart. Dictated by: Sheridan Plata M.D. on 12/01/2018 at 7:56 Approved by: Sheridan Plata M.D. on 12/01/2018 at 7:58
[2018-12-01] MEDS: FUROSEMIDE 40 MG/4 ML VIAL IV (06:06)
--- NOTE | 2018-12-01 06:06 | ED.SOB ---
HPI - SOB/Dyspnea General Chief Complaint: Shortness of Breath/Dyspnea Stated Complaint: shortness of breath, coughing Time Seen by Provider: 12/01/18 05:48 Source: patient Mode of arrival: ambulatory Limitations: no limitations History of Present Illness 83-year-old male, former smoker with extensive cardiac and COPD history presents with a chief complaint of worsening shortness of breath over the past few days. He denies fever or shaking chills nor chest pain. Any exertion or lying flat make him more short of breath. Conversation makes him short of breath. On arrival his pulse ox was 90% and he is speaking in 3 word sentences. He denies any weight gain. He states he has been taking his medications as directed which include Lasix, Cardizem but no anticoagulation. He denies any chest pain and there are no ischemic findings on his EKG. He denies any dietary indiscretion particularly salty foods or significant fluid intake. His cough is productive of whitish sputum MD Complaint: shortness of breath and cough Onset (ago): day(s) Severity: moderate Consistency/Duration: constant Relieving factors: rest and upright position Exacerbating factors: lying flat and exertion Known history of: COPD and congestive heart failure Associated symptoms: denies other symptoms Treatment prior to arrival: none Related Data Home oxygen amount: none Home Medications Medication Instructions Recorded Confirmed atorvastatin [Lipitor] 20 mg PO BEDTIME #0 05/16/17 12/01/18 loratadine 10 mg PO DAILY PRN #0 07/07/17 12/01/18 lorazepam 1 mg PO DAILY PRN #0 11/24/17 12/01/18 ascorbic acid (vitamin C) [Vitamin 1,000 mg PO DAILY 05/21/18 12/01/18 C] diltiazem HCl 360 mg PO DAILY 05/21/18 12/01/18 metoprolol succinate [Toprol XL] 200 mg PO QAM 05/21/18 12/01/18 Lactobacillus acidophilus 1 cap PO DAILY 12/01/18 12/01/18 [Probiotic] acetaminophen 500 mg PO Q6H PRN 12/01/18 12/01/18 amitriptyline 10 mg PO DAILY 12/01/18 12/01/18 cholecalciferol (vitamin D3) 4,000 unit PO DAILY 12/01/18 12/01/18 [Vitamin D3] coenzyme Q10 [CoQ-10] 300 mg PO DAILY 12/01/18 12/01/18 cyanocobalamin (vitamin B-12) 200 mcg PO DAILY 12/01/18 12/01/18 diphenhydramine-acetaminophen 2 tab PO BEDTIME PRN 12/01/18 12/01/18 [Tylenol PM Extra Strength] ferrous sulfate 325 mg PO DAILY 12/01/18 12/01/18 furosemide [Lasix] 40 mg PO DAILY 12/01/18 12/01/18 lisinopril 2.5 mg PO DAILY 12/01/18 12/01/18 metoprolol succinate 100 mg PO QPM 12/01/18 12/01/18 ejhbaxap-awe-BG-lycopen-lutein 1 tab PO DAILY 12/01/18 12/01/18 [Centrum Silver Men] pantoprazole 40 mg PO BID 12/01/18 12/01/18 sennosides-docusate sodium 1 tab PO DAILY 12/01/18 12/01/18 [Senna-S] tiotropium bromide [Spiriva 2 puff INHALATION DAILY 12/01/18 12/01/18 Respimat] Allergies Allergy/AdvReac Type Severity Reaction Status Date / Time aspirin [ASPIRIN] Allergy Intermediate HIVES, Verified 05/16/18 15:06 EARS RING lactose [LACTOSE] Allergy Unknown Verified 05/16/18 15:06 Review of Systems Constitutional Denies chills, Denies fever(s), Denies lethargy and Denies weakness Eyes Denies change in vision, Denies eye discharge, Denies irritation and Denies loss of vision ENT Ears, Nose, Mouth, and Throat: Denies change in voice, Denies neck pain and Denies sore throat Cardiovascular Denies chest pain, Denies irregular heart rhythm, Denies lightheadedness, Denies palpitations, Reports dyspnea, Reports dyspnea on exertion and Reports orthopnea Respiratory Denies cough, Reports dyspnea, Reports dyspnea on exertion and Denies wheezing Gastrointestinal Gastrointestinal: Denies abdominal pain, Denies change in bowel habits, Denies diarrhea, Denies nausea and Denies vomiting Genitourinary Denies hematuria, Denies flank pain, Denies urinary incontinence and Denies urinary urgency Musculoskeletal Denies neck pain Integumentary/Breasts Denies pruritus, Denies erythema, Denies rash and Denies wounds Neurologic Denies confusion, Denies loss of vision and Denies weakness Psychiatric Denies anxiety, Denies confusion, Denies depression, Denies homicidal ideation and Denies suicidal ideation Endocrine Denies palpitations Hematologic/Lymphatic Denies easy bruising Allergic/Immunologic Denies wheezing [facility] Medical History Acquired arteriovenous malformation of stomach (Acute) Aortic valvular stenosis (Acute) Atrial fibrillation (Acute) Cholelithiasis (Acute) Chronic obstructive pulmonary disease (Acute) Gallstone pancreatitis (Acute) Generalized anxiety disorder (Acute) History of gastrointestinal hemorrhage (Acute) History of tobacco abuse (Acute) Hyperlipidemia (Acute) Hypertension (Acute) Restrictive lung disease (Acute) Rheumatoid arthritis (Acute) Surgical History History of aortic valve replacement (Acute) History of colonoscopy (Acute) History of esophagogastroduodenoscopy (EGD) (Acute) History of sinus surgery (Acute) History of tricuspid valve annuloplasty (Acute) Status post mitral valve annuloplasty (Acute) H/O sinus surgery (Resolved) History of tonsillectomy (Resolved) Family History Father Heart disease Hypertension Mother Heart disease Sister Heart disease Cancer Social History household members: none Smoking Status: Former smoker Tobacco: How many years used: 60 alcohol intake: former substance use type: does not use Family History Father Heart disease Hypertension Mother Heart disease Sister Heart disease Cancer Social History household members: none Smoking Status: Former smoker Tobacco: How many years used: 60 alcohol intake: former substance use type: does not use Exam Narrative Exam Narrative: GENERAL: 83-year-old male in obvious respiratory distress with extensive use of accessory muscles, belly breathing pursed lip breathing, initial pulse ox 90%, 3 word sentences at most HEAD: Atraumatic. Normocephalic. No temporal or scalp tenderness. EYES: Pupils equal round and reactive. Extraocular motions intact. No scleral icterus. No injection or drainage. ENT: Nose without bleeding, purulent drainage or septal hematoma. Throat without erythema, tonsillar hypertrophy or exudate. Uvula midline. Airway patent. NECK: Trachea midline. No JVD or lymphadenopathy. Supple, nontender, no meningeal signs. CARDIOVASCULAR: Tachycardic and regular rhythm without murmurs, gallops, or rubs. RESPIRATORY: Wet sounding from the door. Widespread rhonchi with prolonged expiratory phase, tachypneic GASTROINTESTINAL: Abdomen soft, non-tender, nondistended. No hepato-splenomegaly, or palpable masses. No guarding. EXTREMITIES: No clubbing, cyanosis, or edema. No joint tenderness, effusion, or edema noted. BACK: Nontender without deformity or crepitance. No flank tenderness. NEURO: AOx3. SKIN: No rash or erythema. Initial Vital Signs Initial Vital Signs: Vital Signs Temperature 97.6 F 12/01/18 05:50 Pulse Rate 130 H 12/01/18 05:50 Respiratory Rate 28 H 12/01/18 05:50 Blood Pressure 157/100 H 12/01/18 05:50 Pulse Oximetry 92 12/01/18 05:50 Course Orders Ordered: ED Orders 12/02/18 04:55 A1C [Hemoglobin A1C %] Routine Basic Metabolic Panel Routine Complete Blood Count AUTO DIFF Routine Lactate (Lactic Acid) Routine Acetaminophen (Tylenol) 325 mg PO Q6H PRN PRN Reason: Fever Or Pain Last Admin: 12/01/18 20:57 Dose: 325 mg Albuterol/Ipratropium (Duoneb) 3 ml INH RTQ2HR PRN PRN Reason: Shortness Of Breath Last Admin: 12/02/18 02:22 Dose: 3 ml Admin: 12/01/18 19:36 Dose: 3 ml Admin: 12/01/18 13:59 Dose: 3 ml Amitriptyline HCl (Elavil) 10 mg PO BEDTIME [facility] Last Admin: 12/01/18 20:57 Dose: 10 mg Atorvastatin Calcium (Lipitor) 20 mg PO BEDTIME [facility] Last Admin: 12/01/18 20:57 Dose: 20 mg Diltiazem HCl (Cardizem Cd) 360 mg PO DAILY [facility] Last Admin: 12/01/18 13:50 Dose: 360 mg Docusate Sodium (Colace) 100 mg PO DAILY [facility] Fluticasone Propionate (Flonase) 2 spray NASAL DAILY [facility] Last Admin: 12/01/18 14:41 Dose: 2 spray Guaifenesin (Mucinex) 600 mg PO Q12HR PRN PRN Reason: Cough Last Admin: 12/01/18 20:57 Dose: 600 mg Ceftriaxone Sodium/Dextrose (Rocephin) 1 gm in 50 mls @ 100 mls/hr IV Q24H [facility] Last Infusion: 12/01/18 14:33 Dose: 0 mls/hr Admin: 12/01/18 13:51 Dose: 100 mls/hr Azithromycin 500 mg/ Dextrose 250 mls @ 250 mls/hr IV Q24H [facility] Last Infusion: 12/01/18 18:23 Dose: 0 mls/hr Admin: 12/01/18 15:06 Dose: 250 mls/hr Lisinopril (Zestril) 2.5 mg PO DAILY [facility] Last Admin: 12/01/18 11:34 Dose: Lorazepam (Ativan) 1 mg PO DAILY PRN PRN Reason: Anxiety Last Admin: 12/01/18 20:57 Dose: 1 mg Melatonin (Melatonin) 3 mg PO BEDTIME [facility] Last Admin: 12/01/18 20:58 Dose: 3 mg Metoprolol Succinate (Toprol Xl) 100 mg PO QPM [facility] Last Admin: 12/01/18 18:21 Dose: 100 mg Metoprolol Succinate (Toprol Xl) 200 mg PO DAILY [facility] Last Admin: 12/01/18 11:03 Dose: Pantoprazole Sodium (Protonix) 40 mg PO BID [facility] Last Admin: 12/01/18 20:57 Dose: 40 mg Admin: 12/01/18 11:34 Dose: Simethicone (Mylicon) 80 mg PO QID PRN PRN Reason: Flatulence Last Admin: 12/01/18 16:22 Dose: 80 mg Tiotropium [place] (Spiriva) 36 mcg INH RTDAILY [facility] Last Admin: 12/01/18 11:28 Dose: Not Given Discontinued Medications Diltiazem HCl (Cardizem) 10 mg IV NOW ONE Stop: 12/01/18 06:02 Last Admin: 12/01/18 06:00 Dose: 10 mg Furosemide (Lasix) 40 mg IV NOW ONE Stop: 12/01/18 06:02 Last Admin: 12/01/18 06:06 Dose: 40 mg Diltiazem HCl 125 mg/ Dextrose 125 mls @ 5 mls/hr IV TITRATE [facility]; Protocol Last Titration: 12/01/18 09:32 Dose: 5 mg/hr, 5 mls/hr Admin: 12/01/18 06:56 Dose: 5 mg/hr, 5 mls/hr Sodium Chloride (Normal Saline 0.9%) 1,000 mls @ 100 mls/hr IV CONT [facility] Last Infusion: 12/02/18 00:07 Dose: 0 mls/hr Admin: 12/01/18 10:56 Dose: 100 mls/hr Sennosides-Docusate Sodium [Senna-S] 1 Tab 1 tab PO DAILY [facility] Last Admin: 12/01/18 11:25 Dose: Vital Signs - 8 hr 12/02/18 00:00 12/02/18 00:05 12/02/18 02:14 Temperature 96.6 F L 96.6 F L Pulse Rate 74 74 Respiratory Rate 21 21 Blood Pressure 115/53 L 115/53 L Pulse Oximetry 94 94 92 12/02/18 02:23 12/02/18 04:18 Temperature 96.8 F L Pulse Rate 72 78 Respiratory Rate 22 20 Blood Pressure 104/48 L Pulse Oximetry 93 91 MDM - SOB/Dyspnea Differential Diagnosis Likely acute exacerbation of chronic obstructive airways disease, congestive heart failure, community acquired pneumonia, asthma with exacerbation and pulmonary embolism Medical Records Attestation: I reviewed the patient's medical records. Lab Data Attestation: I reviewed the patient's lab results. Result diagrams: 12/02/18 04:55 12/02/18 04:55 Lab Results 12/01/18 12/01/18 12/01/18 Range/Units 05:52 05:52 05:52 WBC 9.1 (4.5-11.0) X10^3/uL RBC 5.09 (4.5-5.9) X10^6/uL Hgb 14.7 (13.5-17.5) g/dL Hct 43.5 (41-53) % MCV 85.5 (80-100) fL MCH 28.9 (26-34) PG MCHC 33.8 (30-36) % RDW 14.8 (11.6-14.8) % Plt Count 185 (150-400) X10^3/uL Neut % (Auto) 73.5 (50-75) % Lymph % (Auto) 12.3 L (25-40) % Clinch % (Auto) 13.5 (3-14) % Eos % (Auto) 0.2 L (2-4) % Baso % (Auto) 0.5 (0-2) % Neut # (Auto) 6700 (4478-7877) /uL Lymph # (Auto) 1100 (7563-8903) /uL Clinch # (Auto) 1200 H (0-900) /uL Eos # (Auto) 0 (0-450) /uL Baso # (Auto) 0 (0-100) /uL RBC Morphology See below Poikilocytosis 1+ H Anisocytosis 1+ H ABG pH (7.35-7.45) ABG pCO2 (35-45) mmHg ABG pO2 (80-100) mmHg ABG HCO3 (22-26) mmol/L ABG Total CO2 (21-31) mmol/L ABG O2 Saturation (95-100) % ABG Base Excess (-2-2) mmol/L FiO2 Sodium 137 (137-145) mmol/L Potassium 4.0 (3.4-5.1) mmol/L Chloride 93 L (98-107) mmol/L Carbon Dioxide 30 (22-32) mmol/L BUN 17 (9-20) mg/dL Creatinine 1.10 (0.66-1.25) mg/dL Estimated GFR > 60.0 (>60) mL/min BUN/Creatinine Ratio 15.5 (6-22) Glucose 175 H (80-110) mg/dL Lactate (0.7-2.1) mmol/L Calcium 8.9 (8.4-10.2) mg/dL Magnesium 1.9 (1.6-2.3) mg/dL Total Creatine Kinase 35 L (55-170) U/L CK-MB (CK-2) TNP CK-MB (CK-2) Rel Index TNP Troponin I < 0.012 (0.01-0.034) ng/mL B-Natriuretic Peptide 186 H (<100) Procalcitonin < 0.05 (<0.5) ng/mL Chlamy pneumoniae PCR (Not Detect) Adenovirus (PCR) (Not Detect) B.parapertussis DNA PCR (Not Detect) Coronavirus OC43 (PCR) (Not Detect) Coronavirus HKU1 (PCR) (Not Detect) Coronavirus 229E (PCR) (Not Detect) Coronavirus NL63 (PCR) (Not Detect) Human Metapneumovir PCR (Not Detect) Influenza Type A (PCR) (Not Detect) Influenza Type B (PCR) (Not Detect) Influenza A & B (PCR) (Negative) M. pneumoniae (PCR) (Not Detect) Parainfluenza 1 (PCR) (Not Detect) Parainfluenza 2 (PCR) (Not Detect) Parainfluenza 3 (PCR) (Not Detect) Parainfluenza 4 (PCR) (Not Detect) RSV (PCR) (Not Detect) Entero/Rhino (PCR) (Not Detect) 12/01/18 12/01/18 12/01/18 Range/Units 05:52 05:52 06:05 WBC (4.5-11.0) X10^3/uL RBC (4.5-5.9) X10^6/uL Hgb (13.5-17.5) g/dL Hct (41-53) % MCV (80-100) fL MCH (26-34) PG MCHC (30-36) % RDW (11.6-14.8) % Plt Count (150-400) X10^3/uL Neut % (Auto) (50-75) % Lymph % (Auto) (25-40) % Clinch % (Auto) (3-14) % Eos % (Auto) (2-4) % Baso % (Auto) (0-2) % Neut # (Auto) (7246-7025) /uL Lymph # (Auto) (7717-9153) /uL Clinch # (Auto) (0-900) /uL Eos # (Auto) (0-450) /uL Baso # (Auto) (0-100) /uL RBC Morphology Poikilocytosis Anisocytosis ABG pH 7.41 (7.35-7.45) ABG pCO2 41.0 (35-45) mmHg ABG pO2 61 L (80-100) mmHg ABG HCO3 26 (22-26) mmol/L ABG Total CO2 27 (21-31) mmol/L ABG O2 Saturation 91 L (95-100) % ABG Base Excess 1.0 (-2-2) mmol/L FiO2 21 Sodium (137-145) mmol/L Potassium (3.4-5.1) mmol/L Chloride (98-107) mmol/L Carbon Dioxide (22-32) mmol/L BUN (9-20) mg/dL Creatinine (0.66-1.25) mg/dL Estimated GFR (>60) mL/min BUN/Creatinine Ratio (6-22) Glucose (80-110) mg/dL Lactate 3.4 H (0.7-2.1) mmol/L Calcium (8.4-10.2) mg/dL Magnesium (1.6-2.3) mg/dL Total Creatine Kinase (55-170) U/L CK-MB (CK-2) CK-MB (CK-2) Rel Index Troponin I (0.01-0.034) ng/mL B-Natriuretic Peptide (<100) Procalcitonin (<0.5) ng/mL Chlamy pneumoniae PCR (Not Detect) Adenovirus (PCR) (Not Detect) B.parapertussis DNA PCR (Not Detect) Coronavirus OC43 (PCR) (Not Detect) Coronavirus HKU1 (PCR) (Not Detect) Coronavirus 229E (PCR) (Not Detect) Coronavirus NL63 (PCR) (Not Detect) Human Metapneumovir PCR (Not Detect) Influenza Type A (PCR) (Not Detect) Influenza Type B (PCR) (Not Detect) Influenza A & B (PCR) Negative (Negative) M. pneumoniae (PCR) (Not Detect) Parainfluenza 1 (PCR) (Not Detect) Parainfluenza 2 (PCR) (Not Detect) Parainfluenza 3 (PCR) (Not Detect) Parainfluenza 4 (PCR) (Not Detect) RSV (PCR) (Not Detect) Entero/Rhino (PCR) (Not Detect) 12/01/18 12/01/18 12/02/18 Range/Units 10:20 16:45 04:55 WBC (4.5-11.0) X10^3/uL RBC (4.5-5.9) X10^6/uL Hgb (13.5-17.5) g/dL Hct (41-53) % MCV (80-100) fL MCH (26-34) PG MCHC (30-36) % RDW (11.6-14.8) % Plt Count (150-400) X10^3/uL Neut % (Auto) (50-75) % Lymph % (Auto) (25-40) % Clinch % (Auto) (3-14) % Eos % (Auto) (2-4) % Baso % (Auto) (0-2) % Neut # (Auto) (5133-4689) /uL Lymph # (Auto) (5167-2918) /uL Clinch # (Auto) (0-900) /uL Eos # (Auto) (0-450) /uL Baso # (Auto) (0-100) /uL RBC Morphology Poikilocytosis Anisocytosis ABG pH (7.35-7.45) ABG pCO2 (35-45) mmHg ABG pO2 (80-100) mmHg ABG HCO3 (22-26) mmol/L ABG Total CO2 (21-31) mmol/L ABG O2 Saturation (95-100) % ABG Base Excess (-2-2) mmol/L FiO2 Sodium (137-145) mmol/L Potassium (3.4-5.1) mmol/L Chloride (98-107) mmol/L Carbon Dioxide (22-32) mmol/L BUN (9-20) mg/dL Creatinine (0.66-1.25) mg/dL Estimated GFR (>60) mL/min BUN/Creatinine Ratio (6-22) Glucose (80-110) mg/dL Lactate 2.7 H 0.8 (0.7-2.1) mmol/L Calcium (8.4-10.2) mg/dL Magnesium (1.6-2.3) mg/dL Total Creatine Kinase (55-170) U/L CK-MB (CK-2) CK-MB (CK-2) Rel Index Troponin I (0.01-0.034) ng/mL B-Natriuretic Peptide (<100) Procalcitonin (<0.5) ng/mL Chlamy pneumoniae PCR Not detected (Not Detect) Adenovirus (PCR) Not detected (Not Detect) B.parapertussis DNA PCR Not detected (Not Detect) Coronavirus OC43 (PCR) Not detected (Not Detect) Coronavirus HKU1 (PCR) Not detected (Not Detect) Coronavirus 229E (PCR) Not detected (Not Detect) Coronavirus NL63 (PCR) Not detected (Not Detect) Human Metapneumovir PCR Detected H (Not Detect) Influenza Type A (PCR) Not detected (Not Detect) Influenza Type B (PCR) Not detected (Not Detect) Influenza A & B (PCR) (Negative) M. pneumoniae (PCR) Not detected (Not Detect) Parainfluenza 1 (PCR) Not detected (Not Detect) Parainfluenza 2 (PCR) Not detected (Not Detect) Parainfluenza 3 (PCR) Not detected (Not Detect) Parainfluenza 4 (PCR) Not detected (Not Detect) RSV (PCR) Not detected (Not Detect) Entero/Rhino (PCR) Not detected (Not Detect) 12/02/18 12/02/18 Range/Units 04:55 04:55 WBC 6.8 (4.5-11.0) X10^3/uL RBC 4.61 (4.5-5.9) X10^6/uL Hgb 13.2 L (13.5-17.5) g/dL Hct 39.1 L (41-53) % MCV 84.7 (80-100) fL MCH 28.6 (26-34) PG MCHC 33.7 (30-36) % RDW 14.2 (11.6-14.8) % Plt Count 159 (150-400) X10^3/uL Neut % (Auto) 73.5 (50-75) % Lymph % (Auto) 11.1 L (25-40) % Clinch % (Auto) 14.6 H (3-14) % Eos % (Auto) 0.4 L (2-4) % Baso % (Auto) 0.4 (0-2) % Neut # (Auto) 5000 (5859-7650) /uL Lymph # (Auto) 700 L (1297-7979) /uL Clinch # (Auto) 1000 H (0-900) /uL Eos # (Auto) 0 (0-450) /uL Baso # (Auto) 0 (0-100) /uL RBC Morphology Poikilocytosis Anisocytosis ABG pH (7.35-7.45) ABG pCO2 (35-45) mmHg ABG pO2 (80-100) mmHg ABG HCO3 (22-26) mmol/L ABG Total CO2 (21-31) mmol/L ABG O2 Saturation (95-100) % ABG Base Excess (-2-2) mmol/L FiO2 Sodium 137 (137-145) mmol/L Potassium 4.3 (3.4-5.1) mmol/L Chloride 95 L (98-107) mmol/L Carbon Dioxide 32 (22-32) mmol/L BUN 24 H (9-20) mg/dL Creatinine 1.00 (0.66-1.25) mg/dL Estimated GFR > 60.0 (>60) mL/min BUN/Creatinine Ratio 24.0 H (6-22) Glucose 121 H (80-110) mg/dL Lactate (0.7-2.1) mmol/L Calcium 8.7 (8.4-10.2) mg/dL Magnesium (1.6-2.3) mg/dL Total Creatine Kinase (55-170) U/L CK-MB (CK-2) CK-MB (CK-2) Rel Index Troponin I (0.01-0.034) ng/mL B-Natriuretic Peptide (<100) Procalcitonin (<0.5) ng/mL Chlamy pneumoniae PCR (Not Detect) Adenovirus (PCR) (Not Detect) B.parapertussis DNA PCR (Not Detect) Coronavirus OC43 (PCR) (Not Detect) Coronavirus HKU1 (PCR) (Not Detect) Coronavirus 229E (PCR) (Not Detect) Coronavirus NL63 (PCR) (Not Detect) Human Metapneumovir PCR (Not Detect) Influenza Type A (PCR) (Not Detect) Influenza Type B (PCR) (Not Detect) Influenza A & B (PCR) (Negative) M. pneumoniae (PCR) (Not Detect) Parainfluenza 1 (PCR) (Not Detect) Parainfluenza 2 (PCR) (Not Detect) Parainfluenza 3 (PCR) (Not Detect) Parainfluenza 4 (PCR) (Not Detect) RSV (PCR) (Not Detect) Entero/Rhino (PCR) (Not Detect) Urine Dip Bedside Urine Glucose Negative Bedside Urine Bilirubin - Negative Bedside Urine Ketone - Negative Urine Specific [place] 1.015 Bedside Urine Occult Blood - Negative Bedside Urine pH 6.0 Bedside Urine Protein - Negative Bedside Urine Urobilinogen - Negative Bedside Urine Nitrite - Negative Bedside Urine Leukocytes - Negative Esterase ECG Data Attestation: I personally reviewed and interpreted this ECG as follows: Prior ECG tracings: available for review Interpretation: EKG is rapid atrial flutter [ 140] and free of any signs of ischemia or ectopy. No ST segmental elevation or depression. No T wave inversions Discharge Plan Departure Patient Disposition: Admitted As Inpatient Clinical Impression: Acute and chronic respiratory failure with hypoxia, Acute CHF, Atrial flutter, paroxysmal, Essential hypertension Discharge Date/Time: 12/01/18 09:25 Interventions: ED Discharge Assessment Last Done: 12/01/18 09:27 Admit Date/Time: 12/01/18 09:33 Admit Provider: Jude Astorga
--- NOTE | 2018-12-01 06:15 | ED_ITS ---
HPI - SOB/Dyspnea General Chief Complaint: Shortness of Breath/Dyspnea Stated Complaint: shortness of breath, coughing Time Seen by Provider: 12/01/18 05:48 Source: patient Mode of arrival: ambulatory Limitations: no limitations History of Present Illness 83-year-old male, former smoker with extensive cardiac and COPD history presents with a chief complaint of worsening shortness of breath over the past few days. He denies fever or shaking chills nor chest pain. Any exertion or lying flat make him more short of breath. Conversation makes him short of breath. On arrival his pulse ox was 90% and he is speaking in 3 word sentences. He denies any weight gain. He states he has been taking his medications as directed which include Lasix, Cardizem but no anticoagulation. He denies any chest pain and there are no ischemic findings on his EKG. He denies any dietary indiscretion particularly salty foods or significant fluid intake. His cough is productive of whitish sputum MD Complaint: shortness of breath and cough Onset (ago): day(s) Severity: moderate Consistency/Duration: constant Relieving factors: rest and upright position Exacerbating factors: lying flat and exertion Known history of: COPD and congestive heart failure Associated symptoms: denies other symptoms Treatment prior to arrival: none Related Data Home oxygen amount: none Home Medications Medication Instructions Recorded Confirmed atorvastatin [Lipitor] 20 mg PO BEDTIME #0 05/16/17 12/01/18 loratadine 10 mg PO DAILY PRN #0 07/07/17 12/01/18 lorazepam 1 mg PO DAILY PRN #0 11/24/17 12/01/18 ascorbic acid (vitamin C) [Vitamin 1,000 mg PO DAILY 05/21/18 12/01/18 C] diltiazem HCl 360 mg PO DAILY 05/21/18 12/01/18 metoprolol succinate [Toprol XL] 200 mg PO QAM 05/21/18 12/01/18 Lactobacillus acidophilus 1 cap PO DAILY 12/01/18 12/01/18 [Probiotic] acetaminophen 500 mg PO Q6H PRN 12/01/18 12/01/18 amitriptyline 10 mg PO DAILY 12/01/18 12/01/18 cholecalciferol (vitamin D3) 4,000 unit PO DAILY 12/01/18 12/01/18 [Vitamin D3] coenzyme Q10 [CoQ-10] 300 mg PO DAILY 12/01/18 12/01/18 cyanocobalamin (vitamin B-12) 200 mcg PO DAILY 12/01/18 12/01/18 diphenhydramine-acetaminophen 2 tab PO BEDTIME PRN 12/01/18 12/01/18 [Tylenol PM Extra Strength] ferrous sulfate 325 mg PO DAILY 12/01/18 12/01/18 furosemide [Lasix] 40 mg PO DAILY 12/01/18 12/01/18 lisinopril 2.5 mg PO DAILY 12/01/18 12/01/18 metoprolol succinate 100 mg PO QPM 12/01/18 12/01/18 [id number]-lycopen-lutein 1 tab PO DAILY 12/01/18 12/01/18 [Centrum Silver Men] pantoprazole 40 mg PO BID 12/01/18 12/01/18 sennosides-docusate sodium 1 tab PO DAILY 12/01/18 12/01/18 [Senna-S] tiotropium bromide [Spiriva 2 puff INHALATION DAILY 12/01/18 12/01/18 Respimat] Allergies Allergy/AdvReac Type Severity Reaction Status Date / Time aspirin [ASPIRIN] Allergy Intermediate HIVES, Verified 05/16/18 15:06 EARS RING lactose [LACTOSE] Allergy Unknown Verified 05/16/18 15:06 Review of Systems Constitutional Denies chills, Denies fever(s), Denies lethargy and Denies weakness Eyes Denies change in vision, Denies eye discharge, Denies irritation and Denies loss of vision ENT Ears, Nose, Mouth, and Throat: Denies change in voice, Denies neck pain and Denies sore throat Cardiovascular Denies chest pain, Denies irregular heart rhythm, Denies lightheadedness, Denies palpitations, Reports dyspnea, Reports dyspnea on exertion and Reports orthopnea Respiratory Denies cough, Reports dyspnea, Reports dyspnea on exertion and Denies wheezing Gastrointestinal Gastrointestinal: Denies abdominal pain, Denies change in bowel habits, Denies diarrhea, Denies nausea and Denies vomiting Genitourinary Denies hematuria, Denies flank pain, Denies urinary incontinence and Denies urinary urgency Musculoskeletal Denies neck pain Integumentary/Breasts Denies pruritus, Denies erythema, Denies rash and Denies wounds Neurologic Denies confusion, Denies loss of vision and Denies weakness Psychiatric Denies anxiety, Denies confusion, Denies depression, Denies homicidal ideation and Denies suicidal ideation Endocrine Denies palpitations Hematologic/Lymphatic Denies easy bruising Allergic/Immunologic Denies wheezing [facility] Medical History Acquired arteriovenous malformation of stomach (Acute) Aortic valvular stenosis (Acute) Atrial fibrillation (Acute) Cholelithiasis (Acute) Chronic obstructive pulmonary disease (Acute) Gallstone pancreatitis (Acute) Generalized anxiety disorder (Acute) History of gastrointestinal hemorrhage (Acute) History of tobacco abuse (Acute) Hyperlipidemia (Acute) Hypertension (Acute) Restrictive lung disease (Acute) Rheumatoid arthritis (Acute) Surgical History History of aortic valve replacement (Acute) History of colonoscopy (Acute) History of esophagogastroduodenoscopy (EGD) (Acute) History of sinus surgery (Acute) History of tricuspid valve annuloplasty (Acute) Status post mitral valve annuloplasty (Acute) H/O sinus surgery (Resolved) History of tonsillectomy (Resolved) Family History Father Heart disease Hypertension Mother Heart disease Sister Heart disease Cancer Social History household members: none Smoking Status: Former smoker Tobacco: How many years used: 60 alcohol intake: former substance use type: does not use Family History Father Heart disease Hypertension Mother Heart disease Sister Heart disease Cancer Social History household members: none Smoking Status: Former smoker Tobacco: How many years used: 60 alcohol intake: former substance use type: does not use Exam Narrative Exam Narrative: GENERAL: 83-year-old male in obvious respiratory distress with extensive use of accessory muscles, belly breathing pursed lip breathing, initial pulse ox 90%, 3 word sentences at most HEAD: Atraumatic. Normocephalic. No temporal or scalp tenderness. EYES: Pupils equal round and reactive. Extraocular motions intact. No scleral icterus. No injection or drainage. ENT: Nose without bleeding, purulent drainage or septal hematoma. Throat without erythema, tonsillar hypertrophy or exudate. Uvula midline. Airway patent. NECK: Trachea midline. No JVD or lymphadenopathy. Supple, nontender, no meningeal signs. CARDIOVASCULAR: Tachycardic and regular rhythm without murmurs, gallops, or rubs. RESPIRATORY: Wet sounding from the door. Widespread rhonchi with prolonged expiratory phase, tachypneic GASTROINTESTINAL: Abdomen soft, non-tender, nondistended. No hepato-splenomegaly , or palpable masses. No guarding. EXTREMITIES: No clubbing, cyanosis, or edema. No joint tenderness, effusion, or edema noted. BACK: Nontender without deformity or crepitance. No flank tenderness. NEURO: AOx3. SKIN: No rash or erythema. Initial Vital Signs Initial Vital Signs: Vital Signs Temperature 97.6 F 12/01/18 05:50 Pulse Rate 130 H 12/01/18 05:50 Respiratory Rate 28 H 12/01/18 05:50 Blood Pressure 157/100 H 12/01/18 05:50 Pulse Oximetry 92 12/01/18 05:50 Course Orders Ordered: ED Orders 12/02/18 04:55 A1C [Hemoglobin A1C %] Routine Basic Metabolic Panel Routine Complete Blood Count AUTO DIFF Routine Lactate (Lactic Acid) Routine Acetaminophen (Tylenol) 325 mg PO Q6H PRN PRN Reason: Fever Or Pain Last Admin: 12/01/18 20:57 Dose: 325 mg Albuterol/Ipratropium (Duoneb) 3 ml INH RTQ2HR PRN PRN Reason: Shortness Of Breath Last Admin: 12/02/18 02:22 Dose: 3 ml Admin: 12/01/18 19:36 Dose: 3 ml Admin: 12/01/18 13:59 Dose: 3 ml Amitriptyline HCl (Elavil) 10 mg PO BEDTIME [facility] Last Admin: 12/01/18 20:57 Dose: 10 mg Atorvastatin Calcium (Lipitor) 20 mg PO BEDTIME [facility] Last Admin: 12/01/18 20:57 Dose: 20 mg Diltiazem HCl (Cardizem Cd) 360 mg PO DAILY [facility] Last Admin: 12/01/18 13:50 Dose: 360 mg Docusate Sodium (Colace) 100 mg PO DAILY [facility] Fluticasone Propionate (Flonase) 2 spray NASAL DAILY [facility] Last Admin: 12/01/18 14:41 Dose: 2 spray Guaifenesin (Mucinex) 600 mg PO Q12HR PRN PRN Reason: Cough Last Admin: 12/01/18 20:57 Dose: 600 mg Ceftriaxone Sodium/Dextrose (Rocephin) 1 gm in 50 mls @ 100 mls/hr IV Q24H [facility] Last Infusion: 12/01/18 14:33 Dose: 0 mls/hr Admin: 12/01/18 13:51 Dose: 100 mls/hr Azithromycin 500 mg/ Dextrose 250 mls @ 250 mls/hr IV Q24H [facility] Last Infusion: 12/01/18 18:23 Dose: 0 mls/hr Admin: 12/01/18 15:06 Dose: 250 mls/hr Lisinopril (Zestril) 2.5 mg PO DAILY [facility] Last Admin: 12/01/18 11:34 Dose: Lorazepam (Ativan) 1 mg PO DAILY PRN PRN Reason: Anxiety Last Admin: 12/01/18 20:57 Dose: 1 mg Melatonin (Melatonin) 3 mg PO BEDTIME [facility] Last Admin: 12/01/18 20:58 Dose: 3 mg Metoprolol Succinate (Toprol Xl) 100 mg PO QPM [facility] Last Admin: 12/01/18 18:21 Dose: 100 mg Metoprolol Succinate (Toprol Xl) 200 mg PO DAILY [facility] Last Admin: 12/01/18 11:03 Dose: Pantoprazole Sodium (Protonix) 40 mg PO BID [facility] Last Admin: 12/01/18 20:57 Dose: 40 mg Admin: 12/01/18 11:34 Dose: Simethicone (Mylicon) 80 mg PO QID PRN PRN Reason: Flatulence Last Admin: 12/01/18 16:22 Dose: 80 mg Tiotropium [place] (Spiriva) 36 mcg INH RTDAILY [facility] Last Admin: 12/01/18 11:28 Dose: Not Given Discontinued Medications Diltiazem HCl (Cardizem) 10 mg IV NOW ONE Stop: 12/01/18 06:02 Last Admin: 12/01/18 06:00 Dose: 10 mg Furosemide (Lasix) 40 mg IV NOW ONE Stop: 12/01/18 06:02 Last Admin: 12/01/18 06:06 Dose: 40 mg Diltiazem HCl 125 mg/ Dextrose 125 mls @ 5 mls/hr IV TITRATE ALICJA; Protocol Last Titration: 12/01/18 09:32 Dose: 5 mg/hr, 5 mls/hr Admin: 12/01/18 06:56 Dose: 5 mg/hr, 5 mls/hr Sodium Chloride (Normal Saline 0.9%) 1,000 mls @ 100 mls/hr IV CONT ALICJA Last Infusion: 12/02/18 00:07 Dose: 0 mls/hr Admin: 12/01/18 10:56 Dose: 100 mls/hr Sennosides-Docusate Sodium [Senna-S] 1 Tab 1 tab PO DAILY [facility]IC[facility] Last Admin: 12/01/18 11:25 Dose: Vital Signs - 8 hr 12/02/18 00:00 12/02/18 00:05 12/02/18 02:14 Temperature 96.6 F L 96.6 F L Pulse Rate 74 74 Respiratory Rate 21 21 Blood Pressure 115/53 L 115/53 L Pulse Oximetry 94 94 92 12/02/18 02:23 12/02/18 04:18 Temperature 96.8 F L Pulse Rate 72 78 Respiratory Rate 22 20 Blood Pressure 104/48 L Pulse Oximetry 93 91 MDM - SOB/Dyspnea Differential Diagnosis Likely acute exacerbation of chronic obstructive airways disease, congestive heart failure, community acquired pneumonia, asthma with exacerbation and pulmonary embolism Medical Records Attestation: I reviewed the patient's medical records. Lab Data Attestation: I reviewed the patient's lab results. Result diagrams: 12/02/18 04:55 12/02/18 04:55 Lab Results 12/01/18 12/01/18 12/01/18 Range/Units 05:52 05:52 05:52 WBC 9.1 (4.5-11.0) X10^3/uL RBC 5.09 (4.5-5.9) X10^6/uL Hgb 14.7 (13.5-17.5) g/dL Hct 43.5 (41-53) % MCV 85.5 (80-100) fL MCH 28.9 (26-34) PG MCHC 33.8 (30-36) % RDW 14.8 (11.6-14.8) % Plt Count 185 (150-400) X10^3/uL Neut % (Auto) 73.5 (50-75) % Lymph % (Auto) 12.3 L (25-40) % Reeves % (Auto) 13.5 (3-14) % Eos % (Auto) 0.2 L (2-4) % Baso % (Auto) 0.5 (0-2) % Neut # (Auto) 6700 (0750-6275) /uL Lymph # (Auto) 1100 (4946-1810) /uL Reeves # (Auto) 1200 H (0-900) /uL Eos # (Auto) 0 (0-450) /uL Baso # (Auto) 0 (0-100) /uL RBC Morphology See below Poikilocytosis 1+ H Anisocytosis 1+ H ABG pH (7.35-7.45) ABG pCO2 (35-45) mmHg ABG pO2 (80-100) mmHg ABG HCO3 (22-26) mmol/L ABG Total CO2 (21-31) mmol/L ABG O2 Saturation (95-100) % ABG Base Excess (-2-2) mmol/L FiO2 Sodium 137 (137-145) mmol/L Potassium 4.0 (3.4-5.1) mmol/L Chloride 93 L (98-107) mmol/L Carbon Dioxide 30 (22-32) mmol/L BUN 17 (9-20) mg/dL Creatinine 1.10 (0.66-1.25) mg/dL Estimated GFR > 60.0 (>60) mL/min BUN/Creatinine Ratio 15.5 (6-22) Glucose 175 H (80-110) mg/dL Lactate (0.7-2.1) mmol/L Calcium 8.9 (8.4-10.2) mg/dL Magnesium 1.9 (1.6-2.3) mg/dL Total Creatine Kinase 35 L (55-170) U/L CK-MB (CK-2) TNP CK-MB (CK-2) Rel Index TNP Troponin I < 0.012 (0.01-0.034) ng/mL B-Natriuretic Peptide 186 H (<100) Procalcitonin < 0.05 (<0.5) ng/mL Chlamy pneumoniae PCR (Not Detect) Adenovirus (PCR) (Not Detect) B.parapertussis DNA PCR (Not Detect) Coronavirus OC43 (PCR) (Not Detect) Coronavirus HKU1 (PCR) (Not Detect) Coronavirus 229E (PCR) (Not Detect) Coronavirus NL63 (PCR) (Not Detect) Human Metapneumovir PCR (Not Detect) Influenza Type A (PCR) (Not Detect) Influenza Type B (PCR) (Not Detect) Influenza A & B (PCR) (Negative) M. pneumoniae (PCR) (Not Detect) Parainfluenza 1 (PCR) (Not Detect) Parainfluenza 2 (PCR) (Not Detect) Parainfluenza 3 (PCR) (Not Detect) Parainfluenza 4 (PCR) (Not Detect) RSV (PCR) (Not Detect) Entero/Rhino (PCR) (Not Detect) 12/01/18 12/01/18 12/01/18 Range/Units 05:52 05:52 06:05 WBC (4.5-11.0) X10^3/uL RBC (4.5-5.9) X10^6/uL Hgb (13.5-17.5) g/dL Hct (41-53) % MCV (80-100) fL MCH (26-34) PG MCHC (30-36) % RDW (11.6-14.8) % Plt Count (150-400) X10^3/uL Neut % (Auto) (50-75) % Lymph % (Auto) (25-40) % Reeves % (Auto) (3-14) % Eos % (Auto) (2-4) % Baso % (Auto) (0-2) % Neut # (Auto) (4131-2959) /uL Lymph # (Auto) (0155-6001) /uL Reeves # (Auto) (0-900) /uL Eos # (Auto) (0-450) /uL Baso # (Auto) (0-100) /uL RBC Morphology Poikilocytosis Anisocytosis ABG pH 7.41 (7.35-7.45) ABG pCO2 41.0 (35-45) mmHg ABG pO2 61 L (80-100) mmHg ABG HCO3 26 (22-26) mmol/L ABG Total CO2 27 (21-31) mmol/L ABG O2 Saturation 91 L (95-100) % ABG Base Excess 1.0 (-2-2) mmol/L FiO2 21 Sodium (137-145) mmol/L Potassium (3.4-5.1) mmol/L Chloride (98-107) mmol/L Carbon Dioxide (22-32) mmol/L BUN (9-20) mg/dL Creatinine (0.66-1.25) mg/dL Estimated GFR (>60) mL/min BUN/Creatinine Ratio (6-22) Glucose (80-110) mg/dL Lactate 3.4 H (0.7-2.1) mmol/L Calcium (8.4-10.2) mg/dL Magnesium (1.6-2.3) mg/dL Total Creatine Kinase (55-170) U/L CK-MB (CK-2) CK-MB (CK-2) Rel Index Troponin I (0.01-0.034) ng/mL B-Natriuretic Peptide (<100) Procalcitonin (<0.5) ng/mL Chlamy pneumoniae PCR (Not Detect) Adenovirus (PCR) (Not Detect) B.parapertussis DNA PCR (Not Detect) Coronavirus OC43 (PCR) (Not Detect) Coronavirus HKU1 (PCR) (Not Detect) Coronavirus 229E (PCR) (Not Detect) Coronavirus NL63 (PCR) (Not Detect) Human Metapneumovir PCR (Not Detect) Influenza Type A (PCR) (Not Detect) Influenza Type B (PCR) (Not Detect) Influenza A & B (PCR) Negative (Negative) M. pneumoniae (PCR) (Not Detect) Parainfluenza 1 (PCR) (Not Detect) Parainfluenza 2 (PCR) (Not Detect) Parainfluenza 3 (PCR) (Not Detect) Parainfluenza 4 (PCR) (Not Detect) RSV (PCR) (Not Detect) Entero/Rhino (PCR) (Not Detect) 12/01/18 12/01/18 12/02/18 Range/Units 10:20 16:45 04:55 WBC (4.5-11.0) X10^3/uL RBC (4.5-5.9) X10^6/uL Hgb (13.5-17.5) g/dL Hct (41-53) % MCV (80-100) fL MCH (26-34) PG MCHC (30-36) % RDW (11.6-14.8) % Plt Count (150-400) X10^3/uL Neut % (Auto) (50-75) % Lymph % (Auto) (25-40) % Reeves % (Auto) (3-14) % Eos % (Auto) (2-4) % Baso % (Auto) (0-2) % Neut # (Auto) (8250-4031) /uL Lymph # (Auto) (2047-9649) /uL Reeves # (Auto) (0-900) /uL Eos # (Auto) (0-450) /uL Baso # (Auto) (0-100) /uL RBC Morphology Poikilocytosis Anisocytosis ABG pH (7.35-7.45) ABG pCO2 (35-45) mmHg ABG pO2 (80-100) mmHg ABG HCO3 (22-26) mmol/L ABG Total CO2 (21-31) mmol/L ABG O2 Saturation (95-100) % ABG Base Excess (-2-2) mmol/L FiO2 Sodium (137-145) mmol/L Potassium (3.4-5.1) mmol/L Chloride (98-107) mmol/L Carbon Dioxide (22-32) mmol/L BUN (9-20) mg/dL Creatinine (0.66-1.25) mg/dL Estimated GFR (>60) mL/min BUN/Creatinine Ratio (6-22) Glucose (80-110) mg/dL Lactate 2.7 H 0.8 (0.7-2.1) mmol/L Calcium (8.4-10.2) mg/dL Magnesium (1.6-2.3) mg/dL Total Creatine Kinase (55-170) U/L CK-MB (CK-2) CK-MB (CK-2) Rel Index Troponin I (0.01-0.034) ng/mL B-Natriuretic Peptide (<100) Procalcitonin (<0.5) ng/mL Chlamy pneumoniae PCR Not detected (Not Detect) Adenovirus (PCR) Not detected (Not Detect) B.parapertussis DNA PCR Not detected (Not Detect) Coronavirus OC43 (PCR) Not detected (Not Detect) Coronavirus HKU1 (PCR) Not detected (Not Detect) Coronavirus 229E (PCR) Not detected (Not Detect) Coronavirus NL63 (PCR) Not detected (Not Detect) Human Metapneumovir PCR Detected H (Not Detect) Influenza Type A (PCR) Not detected (Not Detect) Influenza Type B (PCR) Not detected (Not Detect) Influenza A & B (PCR) (Negative) M. pneumoniae (PCR) Not detected (Not Detect) Parainfluenza 1 (PCR) Not detected (Not Detect) Parainfluenza 2 (PCR) Not detected (Not Detect) Parainfluenza 3 (PCR) Not detected (Not Detect) Parainfluenza 4 (PCR) Not detected (Not Detect) RSV (PCR) Not detected (Not Detect) Entero/Rhino (PCR) Not detected (Not Detect) 12/02/18 12/02/18 Range/Units 04:55 04:55 WBC 6.8 (4.5-11.0) X10^3/uL RBC 4.61 (4.5-5.9) X10^6/uL Hgb 13.2 L (13.5-17.5) g/dL Hct 39.1 L (41-53) % MCV 84.7 (80-100) fL MCH 28.6 (26-34) PG MCHC 33.7 (30-36) % RDW 14.2 (11.6-14.8) % Plt Count 159 (150-400) X10^3/uL Neut % (Auto) 73.5 (50-75) % Lymph % (Auto) 11.1 L (25-40) % Reeves % (Auto) 14.6 H (3-14) % Eos % (Auto) 0.4 L (2-4) % Baso % (Auto) 0.4 (0-2) % Neut # (Auto) 5000 (9704-6101) /uL Lymph # (Auto) 700 L (4965-1378) /uL Reeves # (Auto) 1000 H (0-900) /uL Eos # (Auto) 0 (0-450) /uL Baso # (Auto) 0 (0-100) /uL RBC Morphology Poikilocytosis Anisocytosis ABG pH (7.35-7.45) ABG pCO2 (35-45) mmHg ABG pO2 (80-100) mmHg ABG HCO3 (22-26) mmol/L ABG Total CO2 (21-31) mmol/L ABG O2 Saturation (95-100) % ABG Base Excess (-2-2) mmol/L FiO2 Sodium 137 (137-145) mmol/L Potassium 4.3 (3.4-5.1) mmol/L Chloride 95 L (98-107) mmol/L Carbon Dioxide 32 (22-32) mmol/L BUN 24 H (9-20) mg/dL Creatinine 1.00 (0.66-1.25) mg/dL Estimated GFR > 60.0 (>60) mL/min BUN/Creatinine Ratio 24.0 H (6-22) Glucose 121 H (80-110) mg/dL Lactate (0.7-2.1) mmol/L Calcium 8.7 (8.4-10.2) mg/dL Magnesium (1.6-2.3) mg/dL Total Creatine Kinase (55-170) U/L CK-MB (CK-2) CK-MB (CK-2) Rel Index Troponin I (0.01-0.034) ng/mL B-Natriuretic Peptide (<100) Procalcitonin (<0.5) ng/mL Chlamy pneumoniae PCR (Not Detect) Adenovirus (PCR) (Not Detect) B.parapertussis DNA PCR (Not Detect) Coronavirus OC43 (PCR) (Not Detect) Coronavirus HKU1 (PCR) (Not Detect) Coronavirus 229E (PCR) (Not Detect) Coronavirus NL63 (PCR) (Not Detect) Human Metapneumovir PCR (Not Detect) Influenza Type A (PCR) (Not Detect) Influenza Type B (PCR) (Not Detect) Influenza A & B (PCR) (Negative) M. pneumoniae (PCR) (Not Detect) Parainfluenza 1 (PCR) (Not Detect) Parainfluenza 2 (PCR) (Not Detect) Parainfluenza 3 (PCR) (Not Detect) Parainfluenza 4 (PCR) (Not Detect) RSV (PCR) (Not Detect) Entero/Rhino (PCR) (Not Detect) Urine Dip Bedside Urine Glucose Negative Bedside Urine Bilirubin - Negative Bedside Urine Ketone - Negative Urine Specific [place] 1.015 Bedside Urine Occult Blood - Negative Bedside Urine pH 6.0 Bedside Urine Protein - Negative Bedside Urine Urobilinogen - Negative Bedside Urine Nitrite - Negative Bedside Urine Leukocytes - Negative Esterase ECG Data Attestation: I personally reviewed and interpreted this ECG as follows: Prior ECG tracings: available for review Interpretation: EKG is rapid atrial flutter [ 140] and free of any signs of ischemia or ectopy. No ST segmental elevation or depression. No T wave inversions Discharge Plan Departure Patient Disposition: Admitted As Inpatient Clinical Impression: Acute and chronic respiratory failure with hypoxia, Acute CHF, Atrial flutter, paroxysmal, Essential hypertension Discharge Date/Time: 12/01/18 09:25 Interventions: ED Discharge Assessment Last Done: 12/01/18 09:27 Admit Date/Time: 12/01/18 09:33 Admit Provider: Jude Astorga
[2018-12-01 06:21] LABS: Fractionated Inspired Oxygen 21; HCO3 ABG 26 mmol/L (22-26); Oxygen Saturation ABG 91 % (95-100); PO2 ABG 61 mmHg (80-100); TCO2 ABG 27 mmol/L (21-31); pH ABG 7.41 (7.35-7.45)
[2018-12-01 06:23] LABS: Lactate (Lactic Acid) 3.4 mmol/L (0.7-2.1)
[2018-12-01 06:26] LABS: Basophils Absolute Auto 0 /uL (0-100); Basophils Percent Auto 0.5 % (0-2); Eosinophils Absolute Auto 0 /uL (0-450); Eosinophils Percent Auto 0.2 % (2-4); Hematocrit 43.5 % (41-53); Hemoglobin 14.7 g/dL (13.5-17.5); Lymphocytes Absolute Auto 1100 /uL (1100-4500); Lymphocytes Percent Auto 12.3 % (25-40); Mean Corpuscular HGB Conc 33.8 % (30-36); Mean Corpuscular Hemoglobin 28.9 PG (26-34); Mean Corpuscular Volume 85.5 fL (80-100); Monocytes Absolute Auto 1200 /uL (0-900); Monocytes Percent Auto 13.5 % (3-14); Neutrophils Absolute Auto 6700 /uL (1500-7000); Neutrophils Percent Auto 73.5 % (50-75); Platelet Count 185 X10^3/uL (150-400); Red Blood Cell Count 5.09 X10^6/uL (4.5-5.9); Red Cell Distribution Width 14.8 % (11.6-14.8); White Blood Cell Count 9.1 X10^3/uL (4.5-11.0)
[2018-12-01 06:27] LABS: Add Manual Diff / Slide Review SLIDE REVIEW
[2018-12-01 06:56] LABS: BUN Creatinine Ratio 15.5 (6-22); Blood Urea Nitrogen 17 mg/dL (9-20); Calcium 8.9 mg/dL (8.4-10.2); Carbon Dioxide 30 mmol/L (22-32); Chloride 93 mmol/L (98-107); Creatine Kinase 35 U/L (55-170); Estimated Glomerular Filt Rate > 60.0 mL/min (>60); Glucose 175 mg/dL (80-110); HEMOLYSIS 18 (0-50); Magnesium 1.9 mg/dL (1.6-2.3); Sodium 137 mmol/L (137-145)
[2018-12-01] MEDS: dilTIAZem 125 MG in DEXTROSE 5 % IN WATER 100 ML IV (06:56)
[2018-12-01 07:00] LABS: B Type Natriuretic Peptide 186 (<100)
--- NOTE | 2018-12-01 07:05 | PC.NURSE ---
Pt O2 sat 88%, placed on 2L NC O2 per Dr. Hall with new O2 sat of 91%.
[2018-12-01 07:08] LABS: Influenza A and B by PCR Rapid Negative (Negative)
[2018-12-01 07:09] LABS: Troponin I < 0.012 ng/mL (0.01-0.034)
[2018-12-01 07:15] LABS: Procalcitonin < 0.05 ng/mL (<0.5)
[2018-12-01 07:27] LABS: Anisocytosis 1+; Poikilocytosis 1+
[2018-12-01 10:10] LABS: Reflexed Lactate in 2 Hours Y
--- NOTE | 2018-12-01 10:15 | P.HP_ITS ---
History of Present Illness Chief complaint: shortness of breath, coughing Narrative: Mr. Diaz is an 83-year-old male with a history of AFib, CHF, previously treated and resolved pneumonia 1 year ago that necessitated an ICU stay, who presented to the emergency department after 2 days of difficulty breathing at rest and upon exertion. This was preceded by a 3 weeks of feeling ?fantastic, and in nirvana. He states that his AFib has been under good control on diltiazem, and his CHF under control with Lasix. He takes his medications daily and reliably. The patient states that he has shortness of breath while laying down, in a sitting position, as well as upon exertion. He has associated thick clear sputum production, subjective wheezing, and a lot of fluid in his lungs. He has no lower extremity edema, subjective fever, body aches, night sweats, chills, nor sick contacts. His evaluation in the emergency room revealed no fever, pulse ox of 93%, and high blood pressure. He was also noted to not have any edema, but wheezing, rales, and crackles at the bases more on the right than left. The patient was also noted to be in AFib with RVR with the rate in the 120's, that was not adequately rate controlled by his home medications. Patient History Medical History Acquired arteriovenous malformation of stomach (Acute) Aortic valvular stenosis (Acute) Atrial fibrillation (Acute) Cholelithiasis (Acute) Chronic obstructive pulmonary disease (Acute) Gallstone pancreatitis (Acute) Generalized anxiety disorder (Acute) History of gastrointestinal hemorrhage (Acute) History of tobacco abuse (Acute) Hyperlipidemia (Acute) Hypertension (Acute) Restrictive lung disease (Acute) Rheumatoid arthritis (Acute) Surgical History History of aortic valve replacement (Acute) History of colonoscopy (Acute) History of esophagogastroduodenoscopy (EGD) (Acute) History of sinus surgery (Acute) History of tricuspid valve annuloplasty (Acute) Status post mitral valve annuloplasty (Acute) H/O sinus surgery (Resolved) History of tonsillectomy (Resolved) Family History Father Heart disease Hypertension Mother Heart disease Sister Heart disease Cancer Social History household members: none Smoking Status: Former smoker Tobacco: How many years used: 60 alcohol intake: former substance use type: does not use Family & Social History Family History Father Heart disease Hypertension Mother Heart disease Sister Heart disease Cancer Social History: household members none Tobacco & Substance use: Smoking Status Former smoker alcohol intake former Substance Use Type does not use Meds Home Medications Medication Instructions Recorded Confirmed Type atorvastatin [Lipitor] 20 mg PO BEDTIME #0 05/16/17 12/01/18 History loratadine 10 mg PO DAILY PRN #0 07/07/17 12/01/18 History lorazepam 1 mg PO DAILY PRN #0 11/24/17 12/01/18 History ascorbic acid (vitamin C) [Vitamin 1,000 mg PO DAILY 05/21/18 12/01/18 History C] diltiazem HCl 360 mg PO DAILY 05/21/18 12/01/18 History metoprolol succinate [Toprol XL] 200 mg PO QAM 05/21/18 12/01/18 History Lactobacillus acidophilus 1 cap PO DAILY 12/01/18 12/01/18 History [Probiotic] acetaminophen 500 mg PO Q6H PRN 12/01/18 12/01/18 History amitriptyline 10 mg PO DAILY 12/01/18 12/01/18 History cholecalciferol (vitamin D3) 4,000 unit PO DAILY 12/01/18 12/01/18 History [Vitamin D3] coenzyme Q10 [CoQ-10] 300 mg PO DAILY 12/01/18 12/01/18 History cyanocobalamin (vitamin B-12) 200 mcg PO DAILY 12/01/18 12/01/18 History ferrous sulfate 325 mg PO DAILY 12/01/18 12/01/18 History furosemide [Lasix] 40 mg PO DAILY 12/01/18 12/01/18 History lisinopril 2.5 mg PO DAILY 12/01/18 12/01/18 History metoprolol succinate 100 mg PO QPM 12/01/18 12/01/18 History vtordech-alm-TI-lycopen-lutein 1 tab PO DAILY 12/01/18 12/01/18 History [Centrum Silver Men] pantoprazole 40 mg PO BID 12/01/18 12/01/18 History sennosides-docusate sodium 1 tab PO DAILY 12/01/18 12/01/18 History [Senna-S] tiotropium bromide [Spiriva 2 puff INHALATION DAILY 12/01/18 12/01/18 History Respimat] Allergies Allergy/AdvReac Type Severity Reaction Status Date / Time aspirin [ASPIRIN] Allergy Intermediate HIVES, Verified 05/16/18 15:06 EARS RING lactose [LACTOSE] Allergy Unknown Verified 05/16/18 15:06 Review of Systems Constitutional Constitutional: Denies body ache(s), Denies chills, Denies excessive sweating, Denies fatigue, Denies fever(s), Denies night sweats, Denies weakness, Denies weight gain and Denies weight loss Eyes Eyes: Denies blurry vision ENT Ears, Nose, Mouth, and Throat: No abnormal hearing, No difficulty swallowing, No hoarseness, No nasal congestion, No nasal discharge, No nasal obstruction, No nasal trauma, No neck pain, No sinus pain and No throat swelling Cardiovascular Cardiovascular: Denies bluish discoloration of hands/feet, Denies chest pain, Denies excessive sweating, Denies fainting, Reports fast heart rate ( Subjectively understood in the ER, but not appreciated home.) and Denies leg swelling Respiratory Respiratory: Reports chest congestion, Reports cough, Denies hemoptysis, Reports excessive phlegm production, Reports pain with cough and Reports wheezing Gastrointestinal Gastrointestinal: Denies abdominal pain, Denies bloating, Denies change in bowel habits, Denies coffee ground emesis, Denies constipation and Denies dysphagia Genitourinary Genitourinary: Denies hematuria and Denies difficulty urinating Musculoskeletal Musculoskeletal: Denies abnormal gait, Denies arthralgias, Denies neck pain and Denies stiffness Neurologic Neurologic: Denies abnormal hearing, Denies abnormal speech, Denies abnormal gait, Denies confusion, Denies syncope and Denies weakness Psychiatric Psychiatric: Denies confusion and Denies depression Endocrine Endocrine: Denies excessive sweating, Denies fatigue, Denies flushing and Denies heat intolerance Hematologic/Lymphatic Hematologic/Lymphatic: Denies lymphadenopathy Allergic/Immunologic Allergic/Immunologic: Denies throat swelling and Reports wheezing Exam Vital Signs (past 8 hours): - 12/01/18 05:50 12/01/18 06:00 12/01/18 06:30 Temperature 97.6 F Pulse Rate 130 H 130 H 115 H Respiratory Rate 28 H 20 Blood Pressure 157/100 H 157/100 H Blood Pressure [Left Arm] 137/92 H Pulse Oximetry 92 90 L 12/01/18 07:00 12/01/18 08:00 12/01/18 08:30 Temperature Pulse Rate 101 H 91 H 92 H Respiratory Rate 22 20 20 Blood Pressure Blood Pressure [Left Arm] 142/68 H 128/69 138/85 Pulse Oximetry 93 93 95 12/01/18 09:00 12/01/18 09:30 12/01/18 10:09 Temperature 98.2 F 98.6 F Pulse Rate 70 79 71 Respiratory Rate 22 24 20 Blood Pressure 162/66 H 128/71 Blood Pressure [Left Arm] 113/61 Pulse Oximetry 96 93 94 Oxygen Delivery Method Nasal Cannula Oxygen Flow Rate 2 Narrative Exam Narrative: Patient is sitting with the head of the bed elevated in no apparent distress, is coughing and his breathing loudly revealing wheezes. He produces some sputum which is thick and clear in nature. He is not warm to the touch, and does not complain of pain. Const General: cooperative Nutritional Appearance: average body habitus Orientation: alert, awake and oriented x3 HENMT Head: normal to inspection, normocephalic and atraumatic Ears: hearing grossly normal bilaterally Nose: external nose normal and nares normal Face and sinus: normal facial exam and sinuses nontender Mouth: oral mucosae normal, lip normal and tongue normal Throat: posterior oropharynx normal Eyes General: appearance normal, both eyes and all related structures Pupils: PERRL EOM: EOM intact bilaterally Neck Neck: normal visual inspection, full ROM and No lymphadenopathy Thyroid: thyroid normal Chest Chest: normal inspection of the chest Resp Effort & Inspection: normal respiratory effort, able to speak in complete sentences, audible wheezes and cough Quality of cough: productive Auscultation: clear to auscultation bilaterally, crackles bilaterally, lung sounds not diminished and rales bilaterally (R>L) at the base Cardio Rate: abnormal rate Heart Sounds: S1 normal, S2 normal, no click, gallop, no murmurs and no rubs GI Inspection: normal to inspection Palpation: soft and no hepatosplenomegaly Percussion: normal to percussion Auscultation: normal bowel sounds Back/Spine/Pelvis Back: normal to inspection Skin General: no rashes or lesions noted Lesions: no lesions Rashes: no rashes Trauma: no lacerations or abrasions Wounds: no wounds Neuro General: alert, awake and oriented x3 Cranial Nerves: CN's II-XI intact bilaterally Cognition: normal cognition Speech: speech normal Extrem General: normal to inspection Psych Appearance: grossly normal and well kempt Objective Labs Result Diagrams: 12/01/18 05:52 12/01/18 05:52 Labs: Laboratory Results - last 24 hr 12/01/18 12/01/18 12/01/18 05:52 05:52 05:52 WBC 9.1 RBC 5.09 Hgb 14.7 Hct 43.5 MCV 85.5 MCH 28.9 MCHC 33.8 RDW 14.8 Plt Count 185 Neut % (Auto) 73.5 Lymph % (Auto) 12.3 L [place] % (Auto) 13.5 Eos % (Auto) 0.2 L Baso % (Auto) 0.5 Neut # (Auto) 6700 Lymph # (Auto) 1100 [place] # (Auto) 1200 H Eos # (Auto) 0 Baso # (Auto) 0 RBC Morphology See below Poikilocytosis 1+ H Anisocytosis 1+ H ABG pH ABG pCO2 ABG pO2 ABG HCO3 ABG Total CO2 ABG O2 Saturation ABG Base Excess FiO2 Sodium 137 Potassium 4.0 Chloride 93 L Carbon Dioxide 30 BUN 17 Creatinine 1.10 Estimated GFR > 60.0 BUN/Creatinine Ratio 15.5 Glucose 175 H Lactate Calcium 8.9 Magnesium 1.9 Total Creatine Kinase 35 L CK-MB (CK-2) TNP CK-MB (CK-2) Rel Index TNP Troponin I < 0.012 B-Natriuretic Peptide 186 H Procalcitonin < 0.05 Influenza A & B (PCR) 12/01/18 12/01/18 12/01/18 05:52 05:52 06:05 WBC RBC Hgb Hct MCV MCH MCHC RDW Plt Count Neut % (Auto) Lymph % (Auto) [place] % (Auto) Eos % (Auto) Baso % (Auto) Neut # (Auto) Lymph # (Auto) [place] # (Auto) Eos # (Auto) Baso # (Auto) RBC Morphology Poikilocytosis Anisocytosis ABG pH 7.41 ABG pCO2 41.0 ABG pO2 61 L ABG HCO3 26 ABG Total CO2 27 ABG O2 Saturation 91 L ABG Base Excess 1.0 FiO2 21 Sodium Potassium Chloride Carbon Dioxide BUN Creatinine Estimated GFR BUN/Creatinine Ratio Glucose Lactate 3.4 H Calcium Magnesium Total Creatine Kinase CK-MB (CK-2) CK-MB (CK-2) Rel Index Troponin I B-Natriuretic Peptide Procalcitonin Influenza A & B (PCR) Negative Assessment & Plan Plan: Assessment/Plan Narrative: 1)Pneumonia present on admission, acute. Active -acute pneumonia versus CHF exacerbation. In the absence of edema and worse rales and crackles at the right lung bases consider pneumonia over CHF. Also there is an elevated lactate at 2.7 and a moderately elevated BNP at 185 favors chronic and stable CHF with a superimposed pneumonia - azithromycin and ceftriaxone IV started -likely community-acquired pneumonia, sputum cultures pending -respiratory panel pending, influenza and pro-calcitonin are normal 2) AFib with RVR present on admission, chronic. Active -IV Dilt diltiazem was started in the emergency department with improved rate control. Switch to home dose p.o. diltiazem upon admission -continue to monitor with telemetry 3) CHF chronic, present on admission. Stable -12 year history of CHF status post aortic valve/mitral valve replacements -in the absence of lower extremity edema we will monitor for worsening cardiac function but will not aggressively treat pulmonary edema as the most likely reason for the patient's shortness of breath and coughing is due to an acute pneumonia process. 4) Hyperlipidemia present on admission, chronic. stable -continue home medications 5)htn present on admission, chronic. Stable - continue home medications 6) anxiety, present on admission, chronic. Stable - continue home medications 7) diabetes, undiagnosed previously. Active -elevated blood glucose at 175 today, no previous history of diabetes -will consider an A1c tomorrow
[2018-12-01 10:41] LABS: Lactate 2HR (Lactic Acid Rflx) 2.7 mmol/L (0.7-2.1)
[2018-12-01] MEDS: SODIUM CHLORIDE 0.9% 1,000 ML 100 ML IV (10:56)
--- NOTE | 2018-12-01 11:04 | PC.NURSE ---
Addendum entered by Geraldine Casillas R.N. 12/01/18 14:31: Pt reports shortness of breath has improved since RT treatment. PO diltizem given at 1350, Diltiazen drip stopped at 1430. Original Note: Addendum entered by Geraldine Casillas R.N. 12/01/18 13:59: Pt c/o feeling worse, more short of breath, sats 93% on 2L, rt called to assess. Dr Astorga called and new orders received. Original Note: Pt in aflutter rate 76, BP 132/64. Vikas chest pain, is short of breath with any activity. Verfied with Dr Astorga about this mornings dose of Metoprolol 200mg XL. Patient reports taking his metoprolol this am at home. Order to not give this am dose of 200mg metoprolol from Dr Astorga, but to give pm dose of metoprolol.
[2018-12-01] MEDS: dilTIAZem CD 180 MG CAP 360 MG PO (13:50)
[2018-12-01] MEDS: CEFTRIAXONE 1 GM/50 ML FROZ.PIGGY IV (13:51)
[2018-12-01] MEDS: ALBUTEROL/IPRATROPIUM 3 ML AMPUL INH ×2 (13:59→19:36)
[2018-12-01] MEDS: FLUTICASONE 120 SPRAY/16 GM SPRAY.SUSP NASAL (14:41)
[2018-12-01] MEDS: AZITHROMYCIN 500 MG in DEXTROSE 5% IN WATER 250 ML IV (15:06)
[2018-12-01] MEDS: SIMETHICONE 80 MG TABLET PO (16:22)
--- NOTE | 2018-12-01 17:33 | PC.NURSE ---
Addendum entered by Jackelin Siegel R.N. 12/01/18 20:07: 1999 - HOROLOGIST APPRENTICE notified of episode of SOB, results of repiratory panel, current vital signs and pt request for sleep aid. Orders pending. Original Note: Addendum entered by Jackelin Siegel R.N. 12/01/18 19:35: 1930 - Pt with onset of SOB while trying to lay down. Sitting up on edge of bed. Pulling off O2. Reports feeling diaphoretic, clammy 86% on RA. Denies hx of anxiety. LS continue to be coarse crackles, throughout. RT called for breathing treatment. Original Note: Pt needing to be repositioned. Stood at bedside to attempt to use urinal. Sob with activity. Sats decreased to 87% on 2L, Coarse crackles, rhonci and scant amount of scattered wheezing. Encourage pt to take rest breaks and slow deep breath. Some impulsiveness with movements. Reinforced safety and call light use. Bed alarm on.
[2018-12-01] MEDS: METOPROLOL ER 50 MG TABLET 100 MG PO (18:21)
[2018-12-01 18:46] LABS: Adenovirus Not Detected (Not Detect); Bordetella pertussis Not Detected (Not Detect); Chlamydophila pneumoniae Not Detected (Not Detect); Coronavirus 229E Not Detected (Not Detect); Coronavirus HKU1 Not Detected (Not Detect); Coronavirus NL 63 Not Detected (Not Detect); Coronavirus OC43 Not Detected (Not Detect); Human Metapneumovirus Detected (Not Detect); Human Rhinovirus/Enterovirus Not Detected (Not Detect); Influenza A Not Detected (Not Detect); Influenza B Not Detected (Not Detect); Mycoplasma pneumoniae Not Detected (Not Detect); Parainfluenza Virus 1 Not Detected (Not Detect); Parainfluenza Virus 2 Not Detected (Not Detect); Parainfluenza Virus 3 Not Detected (Not Detect); Parainfluenza Virus 4 Not Detected (Not Detect); Respiratory Syncytial Virus Not Detected (Not Detect)
[2018-12-01] MEDS: ACETAMINOPHEN 325 MG TABLET PO (20:57)
[2018-12-01] MEDS: LORazepam 1 MG TABLET PO (20:57)
[2018-12-01] MEDS: PANTOPRAZOLE 40 MG TABLET PO (20:57)
[2018-12-01] MEDS: guaiFENesin ER 600 MG TAB PO (20:57)
[2018-12-01] MEDS: AMITRIPTYLINE 10 MG TABLET PO (20:57)
[2018-12-01] MEDS: ATORVASTATIN 20 MG TABLET PO (20:57)
[2018-12-01] MEDS: MELATONIN 3 MG TABLET PO (20:58)
[2018-12-02] VITALS (17 sets, daily range): BP systolic 104–146; BP diastolic 41–92; PULSE 59–116; RESP 15–27; TEMP 35.9–36.8; O2SAT 90–97
[2018-12-02] MEDS: ALBUTEROL/IPRATROPIUM 3 ML AMPUL INH ×2 (02:22→09:33)
[2018-12-02 05:40] LABS: Lactate (Lactic Acid) 0.8 mmol/L (0.7-2.1)
[2018-12-02 05:42] LABS: Basophils Absolute Auto 0 /uL (0-100); Basophils Percent Auto 0.4 % (0-2); Blood Urea Nitrogen 24 mg/dL (9-20); Calcium 8.7 mg/dL (8.4-10.2); Carbon Dioxide 32 mmol/L (22-32); Chloride 95 mmol/L (98-107); Eosinophils Absolute Auto 0 /uL (0-450); Eosinophils Percent Auto 0.4 % (2-4); Estimated Glomerular Filt Rate > 60.0 mL/min (>60); Glucose 121 mg/dL (80-110); HEMOLYSIS 19 (0-50); Hematocrit 39.1 % (41-53); Hemoglobin 13.2 g/dL (13.5-17.5); Lymphocytes Absolute Auto 700 /uL (1100-4500); Lymphocytes Percent Auto 11.1 % (25-40); Mean Corpuscular HGB Conc 33.7 % (30-36); Mean Corpuscular Hemoglobin 28.6 PG (26-34); Mean Corpuscular Volume 84.7 fL (80-100); Monocytes Absolute Auto 1000 /uL (0-900); Monocytes Percent Auto 14.6 % (3-14); Neutrophils Absolute Auto 5000 /uL (1500-7000); Neutrophils Percent Auto 73.5 % (50-75); Platelet Count 159 X10^3/uL (150-400); Potassium 4.3 mmol/L (3.4-5.1); Red Blood Cell Count 4.61 X10^6/uL (4.5-5.9); Red Cell Distribution Width 14.2 % (11.6-14.8); Sodium 137 mmol/L (137-145); White Blood Cell Count 6.8 X10^3/uL (4.5-11.0)
[2018-12-02 05:43] LABS: Add Manual Diff / Slide Review SLIDE REVIEW
[2018-12-02 07:38] LABS: RBC Morphology Normal Morphology
[2018-12-02 07:40] LABS: Hemoglobin A1C% w Est Avg Glu 5.9 % (4.0-6.0)
[2018-12-02] MEDS: PANTOPRAZOLE 40 MG TABLET PO ×2 (09:05→18:52)
[2018-12-02] MEDS: TIOTROPIUM BROMIDE 18 MCG INHALER 36 MCG INH (09:20)
[2018-12-02] MEDS: SIMETHICONE 80 MG TABLET PO (09:20)
[2018-12-02] MEDS: dilTIAZem CD 180 MG CAP 360 MG PO (09:20)
[2018-12-02] MEDS: LISINOPRIL 5 MG TABLET 2.5 MG PO (09:21)
[2018-12-02] MEDS: guaiFENesin ER 600 MG TAB PO (09:21)
[2018-12-02] MEDS: METOPROLOL ER 50 MG TABLET 200 MG PO (09:22)
[2018-12-02] MEDS: DOCUSATE 100 MG CAPSULE PO (09:23)
[2018-12-02] MEDS: FLUTICASONE 120 SPRAY/16 GM SPRAY.SUSP NASAL (09:24)
[2018-12-02] MEDS: CEFTRIAXONE 1 GM/50 ML FROZ.PIGGY IV (13:39)
--- NOTE | 2018-12-02 14:39 | CM.IDA ---
Discharge Planning/Care Management Advanced directive, confirm from FAMILY Start: 12/01/18 10:29 Freq: Q24H Status: Active Protocol: Document 12/01/18 10:29 SFP (Rec: 12/01/18 10:30 SFP [id number]) Advance Directive, confirm on record Time 10:30 Person contacted medical records Copy received No Document 12/02/18 09:32 TJB (Rec: 12/02/18 09:33 TJB [id number]) Advance Directive, confirm on record Time 10:30 Person contacted medical records Copy received No Time 09:33 Copy received No CM Discharge Assessment Start: 12/02/18 14:30 Freq: Status: Active Protocol: Document 12/02/18 14:30 JW (Rec: 12/02/18 14:39 JW [id number]) Discharge Planning Assessment Assigned Manager Asset Management DORON Nicole DPOA/Assigned Designee Name Alyssa Ashraf dtr Contact Information [phone] Advance Directives? Yes Advance Directives on File No History Provided By Patient Prior Living Arrangements Apartment/Condo Household Members none Type of transporation used prior to Drives own vehicle admit Independent with ADL's Yes Is patient alert and oriented? Yes Barriers to Discharge No Comment Reviewed chart, met w/pt at bedside, explained SW role. Pt explains he is indp and active at baseline and expects no barriers to DC back home. His dtrs Alyssa Ashraf and Medina Avitia are supportive and pt states I think they have joint DPOA. Pt will likely remain here for an additional 24-48 hrs for treatment of pneumonia and DC back home w/supportive family. PT eval might be helpful depending on length of stay and functional status ? Following closely in case any DC needs or concerns arise. D[place]ON [place] Discharge Plan Home Transportation Arrangement Family Referrals Initiated None needed Whiteboard Updated in Patient Room with Yes name and ext. # of Manager Asset Management Review Status In Process
[2018-12-02] MEDS: AZITHROMYCIN 500 MG in DEXTROSE 5% IN WATER 250 ML IV (14:57)
--- NOTE | 2018-12-02 15:56 | PM.PN.1 ---
Subjective Interval history: Mr. Diaz is an 83-year-old male with a chief complaint of shortness of breath for 2 days. He has a history of AFib, and CHF. He presented to the emergency department after 2 days of shortness of breath at rest. He had no lower extremity edema, he had wet cough with clear thick sputum production, he was medication compliance, and had no smoking history. He is feeling much better today. His respiratory panel grew human metapneumovirus only. His echocardiogram revealed no significant changes from previous study, and an ejection fraction of 40-50%. His chest x-ray was reviewed by Radiology and myself, and revealed no acute infectious process. His AFib in the emergency department showed RVR, with rate in the 120 is. This was controlled with a diltiazem drip. After adequate control, he was switched back to p.o. diltiazem with acceptable results with rate in the 80s to 90s. He has been on azithromycin and ceftriaxone antibiotics for presumed pneumonia. Exam Vital Signs (past 8 hours): - 12/02/18 09:21 12/02/18 09:34 12/02/18 11:00 Temperature 98.1 F Pulse Rate 116 H 102 H 92 H Respiratory Rate 15 24 Blood Pressure 120/72 146/41 H Pulse Oximetry 92 91 12/02/18 15:34 Temperature Pulse Rate Respiratory Rate Blood Pressure Pulse Oximetry 94 Oxygen Delivery Method Nasal Cannula Oxygen Flow Rate 1.5 Narrative Exam Narrative: Patient is alert and oriented x3, sitting in bed comfortably. He is on oxygen by nasal cannula. He is cooperative. HENMT: Normocephalic atraumatic with no scleral icterus, jaundice, cyanosis Eyes: PERRL, EOMI Respiratory: Lungs are clear to auscultation bilaterally, with wheezes on the right. Cardio: Irregularly irregular, S1 and S2 present with characteristic gallop of AFib. GI: Abdomen is soft, nontender, nondistended, without hepatosplenomegaly Extremities: Grossly normal Psych: Patient displays normal thought process, and judgment Objective Labs Result Diagrams: 12/02/18 04:55 12/02/18 04:55 Labs: Laboratory Results - last 24 hr 12/01/18 12/02/18 12/02/18 16:45 04:55 04:55 WBC RBC Hgb Hct MCV MCH MCHC RDW Plt Count Neut % (Auto) Lymph % (Auto) [place] % (Auto) Eos % (Auto) Baso % (Auto) Neut # (Auto) Lymph # (Auto) [place] # (Auto) Eos # (Auto) Baso # (Auto) RBC Morphology Sodium Potassium Chloride Carbon Dioxide BUN Creatinine Estimated GFR BUN/Creatinine Ratio Glucose Hemoglobin A1c 5.9 Lactate 0.8 Calcium Chlamy pneumoniae PCR Not detected Adenovirus (PCR) Not detected B.parapertussis DNA PCR Not detected Coronavirus OC43 (PCR) Not detected Coronavirus HKU1 (PCR) Not detected Coronavirus 229E (PCR) Not detected Coronavirus NL63 (PCR) Not detected Human Metapneumovir PCR Detected H Influenza Type A (PCR) Not detected Influenza Type B (PCR) Not detected M. pneumoniae (PCR) Not detected Parainfluenza 1 (PCR) Not detected Parainfluenza 2 (PCR) Not detected Parainfluenza 3 (PCR) Not detected Parainfluenza 4 (PCR) Not detected RSV (PCR) Not detected Entero/Rhino (PCR) Not detected 12/02/18 12/02/18 04:55 04:55 WBC 6.8 RBC 4.61 Hgb 13.2 L Hct 39.1 L MCV 84.7 MCH 28.6 MCHC 33.7 RDW 14.2 Plt Count 159 Neut % (Auto) 73.5 Lymph % (Auto) 11.1 L [place] % (Auto) 14.6 H Eos % (Auto) 0.4 L Baso % (Auto) 0.4 Neut # (Auto) 5000 Lymph # (Auto) 700 L [place] # (Auto) 1000 H Eos # (Auto) 0 Baso # (Auto) 0 RBC Morphology Normal morphology Sodium 137 Potassium 4.3 Chloride 95 L Carbon Dioxide 32 BUN 24 H Creatinine 1.00 Estimated GFR > 60.0 BUN/Creatinine Ratio 24.0 H Glucose 121 H Hemoglobin A1c Lactate Calcium 8.7 Chlamy pneumoniae PCR Adenovirus (PCR) B.parapertussis DNA PCR Coronavirus OC43 (PCR) Coronavirus HKU1 (PCR) Coronavirus 229E (PCR) Coronavirus NL63 (PCR) Human Metapneumovir PCR Influenza Type A (PCR) Influenza Type B (PCR) M. pneumoniae (PCR) Parainfluenza 1 (PCR) Parainfluenza 2 (PCR) Parainfluenza 3 (PCR) Parainfluenza 4 (PCR) RSV (PCR) Entero/Rhino (PCR) Assessment & Plan Plan: Assessment/Plan Narrative: 1)Pneumonia present on admission, acute. Active -acute pneumonia versus CHF exacerbation. In the absence of edema and worse rales and crackles at the right lung bases consider pneumonia over CHF. - lactate has normalized from yesterday and is at 0.8 down from 2.7 and a moderately elevated BNP at 185 favors chronic and stable CHF with a superimposed pneumonia -human metapneumovirus detected on respiratory panel - azithromycin and ceftriaxone IV continued -likely community-acquired pneumonia, sputum cultures pending -Negative influenza and pro-calcitonin are normal 2) AFib with RVR present on admission, chronic. Active -continued home p.o. diltiazem dose with rate control in the 80s to 90s -continue to monitor with telemetry 3) CHF chronic, present on admission. Stable -12 year history of CHF status post aortic valve/mitral valve replacements -in the absence of lower extremity edema we will monitor for worsening cardiac function but will not aggressively treat pulmonary edema as the most likely reason for the patient's shortness of breath and coughing is due to an acute pneumonia process. -Echocardiogram showed EF of 45-50% with normal function of aortic valve and mitral valve replacement. 4) Hyperlipidemia present on admission, chronic. stable -continue home medications 5)htn present on admission, chronic. Stable - continue home medications 6) anxiety, present on admission, chronic. Stable - continue home medications 7) diabetes, questionable upon admission, ruled out -elevated blood glucose at 175 today, no previous history of diabetes -A1c was 5.9, normal. Quality VTE Deep Vein Thrombosis/Pulmonary Embolism Present on Admission: No
[2018-12-02] MEDS: METOPROLOL ER 50 MG TABLET 100 MG PO (17:03)
--- NOTE | 2018-12-02 18:16 | PC.NURSE ---
1809 - Patient transferred up to room 216. Report given to receiving nurse Rahat. Patient left floor in good condition with all belongings.
[2018-12-02] MEDS: ATORVASTATIN 20 MG TABLET PO (18:52)
[2018-12-02] MEDS: MELATONIN 3 MG TABLET PO (18:52)
[2018-12-02] MEDS: ACETAMINOPHEN 325 MG TABLET PO (18:53)
[2018-12-02] MEDS: AMITRIPTYLINE 10 MG TABLET PO (18:53)
[2018-12-03 03:02] VITALS: BP 144/69; PULSE 74; RESP 20; TEMP 36.4; O2SAT 91
--- NOTE | 2018-12-03 06:19 | PC.NURSE ---
NOC SHIFT: Patient asleep most of shift. Awakening at 0300 due to the bed being really uncomfortable. New Sandra bed obtained and placed in patient room. Patient has been resting comfortably since. Denies pain, patient forgets to call for assistance in getting out of bed for bathroom. Fall policy explained to patient again with request to use call light for assistance. Bed alarm on. No acute distress, Will continue to monitor.
[2018-12-03 08:25] VITALS: BP 152/95; PULSE 73; RESP 18; TEMP 36.8; O2SAT 93
[2018-12-03 08:35] VITALS: PULSE 90; RESP 16; O2SAT 93
[2018-12-03] MEDS: ALBUTEROL/IPRATROPIUM 3 ML AMPUL INH (08:37)
[2018-12-03] MEDS: TIOTROPIUM BROMIDE 18 MCG INHALER 36 MCG INH (08:49)
[2018-12-03 09:30] VITALS: O2SAT 93
[2018-12-03 09:40] VITALS: BP 152/95; PULSE 90
[2018-12-03] MEDS: FLUTICASONE 120 SPRAY/16 GM SPRAY.SUSP NASAL (09:40)
[2018-12-03] MEDS: METOPROLOL ER 50 MG TABLET 200 MG PO (09:40)
[2018-12-03] MEDS: DOCUSATE 100 MG CAPSULE PO (09:41)
[2018-12-03] MEDS: LISINOPRIL 5 MG TABLET 2.5 MG PO (09:41)
[2018-12-03] MEDS: PANTOPRAZOLE 40 MG TABLET PO (09:41)
[2018-12-03] MEDS: dilTIAZem CD 180 MG CAP 360 MG PO (09:41)
[2018-12-03] MEDS: BISACODYL 10 MG SUPP PR (12:28)
--- NOTE | 2018-12-03 12:38 | CM.DPC ---
Addendum entered by Kari Portillo 12/03/18 13:19: Important Message from Medicare signed by patient at approximately 11:20AM. Original Note: DCP/continued: Reviewed chart. Patient moved to room# 216. COMM[facility] HE[facility] CONSULTANT met with patient explained CM/SW role. White board updated. Patient alert and oriented sitting in recliner at time of visit. Patient reports that he is I at baseline and has family support nearby. Patient with no d/c planning concerns. Notified patient that CM team would continue to follow if needs were to arise. P: Home when medically stable. DORON Gonzalez Discharge Planning/Care Management Advanced directive, confirm from FAMILY Start: 12/01/18 10:29 Freq: Q24H Status: Active Protocol: Document 12/01/18 10:29 SFP (Rec: 12/01/18 10:30 SFP [id number]) Advance Directive, confirm on record Time 10:30 Person contacted medical records Copy received No Document 12/02/18 09:32 TJB (Rec: 12/02/18 09:33 TJB [id number]) Advance Directive, confirm on record Time 10:30 Person contacted medical records Copy received No Time 09:33 Copy received No CM Discharge Assessment Start: 12/02/18 14:30 Freq: Status: Active Protocol: Document 12/02/18 14:30 BRENDAN (Rec: 12/02/18 14:39 JW [id number]) Discharge Planning Assessment Assigned Embryology Professor DORON Nicole DPOA/Assigned Designee Name Alyssa Ashraf dtr Contact Information [phone] Advance Directives? Yes Advance Directives on File No History Provided By Patient Prior Living Arrangements Apartment/Condo Household Members none Type of transporation used prior to Drives own vehicle admit Independent with ADL's Yes Is patient alert and oriented? Yes Barriers to Discharge No Comment Reviewed chart, met w/pt at bedside, explained SW role. Pt explains he is indp and active at baseline and expects no barriers to DC back home. His dtrs Alyssa Ashraf and Medina Avitia are supportive and pt states I think they have joint DPOA. Pt will likely remain here for an additional 24-48 hrs for treatment of pneumonia and DC back home w/supportive family. PT eval might be helpful depending on length of stay and functional status ? Following closely in case any DC needs or concerns arise. Discharge Plan Home Transportation Arrangement Family Referrals Initiated None needed Whiteboard Updated in Patient Room with Yes name and ext. # of Embryology Professor Review Status In Process Document 12/03/18 12:38 KJS (Rec: 12/03/18 12:38 KJS [id number]) Discharge Planning Assessment Assigned Embryology Professor DORON Nicole DPOA/Assigned Designee Name Alyssa Ashraf dtr Contact Information [phone] Advance Directives? Yes Advance Directives on File No History Provided By Patient Prior Living Arrangements Apartment/Condo Household Members none Type of transporation used prior to Drives own vehicle admit Independent with ADL's Yes Is patient alert and oriented? Yes Barriers to Discharge No Comment Reviewed chart, met w/pt at bedside, explained SW role. Pt explains he is indp and active at baseline and expects no barriers to DC back home. His dtrs Alyssa Ashraf and Medina Avitia are supportive and pt states I think they have joint DPOA. Pt will likely remain here for an additional 24-48 hrs for treatment of pneumonia and DC back home w/supportive family. PT eval might be helpful depending on length of stay and functional status ? Following closely in case any DC needs or concerns arise. Discharge Plan Home Transportation Arrangement Family Referrals Initiated None needed Whiteboard Updated in Patient Room with Yes name and ext. # of Embryology Professor Review Status In Process
[2018-12-03 12:40] VITALS: BP 145/95; PULSE 95; RESP 18; TEMP 36.4; O2SAT 94
[2018-12-03] MEDS: AZITHROMYCIN 500 MG in DEXTROSE 5% IN WATER 250 ML IV (13:00)
--- NOTE | 2018-12-03 13:04 | P.DS_ITS ---
History of Present Illness Date Patient Seen: 12/03/18 Chief complaint: shortness of breath, coughing Narrative: Written by Dr. Astorga: Mr. Diaz is an 83-year-old male with a history of AFib, CHF, previously treated and resolved pneumonia 1 year ago that necessitated an ICU stay, who presented to the emergency department after 2 days of difficulty breathing at rest and upon exertion. This was preceded by a 3 weeks of feeling ?fantastic, and in nirvana. He states that his AFib has been under good control on diltiazem, and his CHF under control with Lasix. He takes his medications daily and reliably. The patient states that he has shortness of breath while laying down, in a sitting position, as well as upon exertion. He has associated thick clear sputum production, subjective wheezing, and a lot of fluid in his lungs. He has no lower extremity edema, subjective fever, body aches, night sweats, chills, nor sick contacts. His evaluation in the emergency room revealed no fever, pulse ox of 93%, and high blood pressure. He was also noted to not have any edema, but wheezing, rales, and crackles at the bases more on the right than left. The patient was also noted to be in AFib with RVR with the rate in the 120's, that was not adequately rate controlled by his home medications. Discharge Providers Date of admission: 12/01/18 09:33 Primary care physician: José Truong MD Consults: 12/01/18 06:01 Consult to Respiratory Therapy Evaluate & Treat Comment: Physician Instructions: Evaluate and treat Discharge provider: Marah Munoz DO Discharge Date: 12/03/18 Summary Discharge Diagnosis: 1. Acute viral pneumonia, present on admission. Resolving. 2. Chronic atrial fibrillation with RVR, present on admission. RVR resolved. 3. Heart failure with reduced ejection fraction, chronic, present on admission. Stable 4. Hyperlipidemia, chronic, present on admission. Stable. 5. Hypertension, chronic, present on admission. Stable. 6. Anxiety, chronic, present on admission. Stable. 7. Acute hyperglycemia, present on admission. Resolved. Diabetes mellitus type 2 ruled out. 8. Acute constipation, present on admission. Ongoing. Hospital Course: Marvin Diaz is an 83-year-old male with a past medical history significant for chronic atrial fibrillation and systolic CHF who presented for progressive worsening shortness of breath. 1. Acute viral pneumonia, present on admission. Resolving. -In the absence of edema and worse rales and crackles at the right lung bases considered to be pneumonia over CHF. -Lactate has normalized from yesterday and is at 0.8 down from 2.7 and a moderately elevated BNP at 185 favors chronic and stable CHF with a superimposed pneumonia. -Respiratory viral PCR positive for human metapneumovirus. -Blood cultures x2 have no growth to date. Sputum cultures grew mixed respiratory hector. -Negative influenza and pro-calcitonin are normal. -Chest x-ray interpreted by ct did not demonstrate any acute cardiopulmonary process. -Finished course of azithromycin 500 mg daily x3 days. Discontinued ceftriaxone 1 g daily as patient does not have signs of bacterial pneumonia. 2. Chronic atrial fibrillation with RVR, present on admission. RVR resolved. -Continued home p.o. diltiazem dose with rate control in the 100's. -Continued to monitor with telemetry. 3. Heart failure with reduced ejection fraction, chronic, present on admission. Stable -12 year history of CHF status post aortic valve/mitral valve replacements. -In the absence of lower extremity edema we will monitor for worsening cardiac function but will not aggressively treat pulmonary edema as the most likely reason for the patient's shortness of breath and coughing is due to an acute viral process. -Echocardiogram showed EF of 45-50% with normal function of aortic valve and mitral valve replacement. 4. Hyperlipidemia, chronic, present on admission. Stable. -Continued home medications 5. Hypertension, chronic, present on admission. Stable. -Continued home medications. 6. Anxiety, chronic, present on admission. Stable. -Continued home medications. 7. Acute hyperglycemia, present on admission. Resolved. Diabetes mellitus type 2 ruled out. -Elevated blood glucose at 175 today, no previous history of diabetes. -Hemoglobin A1c was 5.9, normal. 8. Acute constipation, present on admission. Ongoing. -Patient received Colace and MiraLax. Patient was given docusate suppository prior to discharge. Status at Discharge Functional status at discharge: independent ambulation Overall status at discharge: patient is back to baseline Exam Vital Signs (past 8 hours): - 12/03/18 08:25 12/03/18 08:35 12/03/18 09:40 Temperature 98.2 F Pulse Rate 73 90 90 Respiratory Rate 18 16 Blood Pressure 152/95 H 152/95 H Pulse Oximetry 93 93 Oxygen Delivery Method Nasal Cannula Oxygen Flow Rate 2 Narrative Exam Narrative: General: Elderly gentleman sitting in bedside chair and in no acute distress, well-developed, well-nourished, appropriately interactive. HEENT: Normocephalic, atraumatic. External ears without defect. Pupils equal, round, and reactive to light. Anicteric sclerae, moist conjunctivae, and no lid lag. Neck: Supple with full range of motion. No jugular venous distension. No lymphadenopathy or thyromegaly. Cardiovascular: Regular rate and rhythm without murmurs, rubs, or gallops appreciated. Pulmonary: Clear to auscultation bilaterally without crackles, wheezes, or rhonchi. Normal respiratory effort with no use of accessory muscles. Abdomen: Soft, bowel sounds present, nontender, mild distension likely related to constipation. No hepatosplenomegaly or masses appreciated. Extremities: No clubbing, cyanosis, or edema. Skin: Normal temperature, turgor, and texture; no rash, ulcers, or subcutaneous nodules appreciated. Neurological: Cranial nerves grossly intact. Normal muscle strength, tone, and bulk. Reflexes, coordination, and sensory function within normal limits. No known gait impairment. Psychiatric: Normal mood and affect. Alert and oriented to person, place, and time. Objective Labs Result Diagrams: 12/02/18 04:55 12/02/18 04:55 Discharge Plan Discharge Plan Patient Disposition: Home Discharge comment: You are being discharged home. Please follow-up with your primary care provider, Dr. Truong, in the next 1-2 weeks regarding recent hospitalization. You had a viral upper respiratory tract infection which precipitated you to have atrial fibrillation with rapid heart beat. Please follow-up with your supervisor operations at next available appointment. Continue taking your medications as prescribed. You were given Mucinex 600 mg every 12 hr as needed for excessive sputum production and MiraLax 17 g daily as needed for constipation. Discharge Med Rec/Prescriptions Prescriptions: New guaifenesin 600 mg Tablet Extended Release 12hr 600 mg PO Q12HR PRN (Reason: Cough) Qty: 10 RF: 0 polyethylene glycol 3350 17 gram Powder In Packet 17 gm PO DAILY PRN (Reason: Constipation) Qty: 1 RF: 0 Continue atorvastatin [Lipitor] 20 MG tablet 20 mg PO BEDTIME Qty: 0 RF: 0 loratadine 10 MG tablet 10 mg PO DAILY PRN (Reason: Allergy Symptoms) Qty: 0 RF: 0 lorazepam 1 MG tablet 1 mg PO DAILY PRN (Reason: Anxiety) Qty: 0 RF: 0 ascorbic acid (vitamin C) [Vitamin C] 500 mg Tablet 1,000 mg PO DAILY RF: 0 diltiazem HCl 180 MG capsule,extended release 24hr 360 mg PO DAILY RF: 0 metoprolol succinate [Toprol XL] 100 MG tablet extended release 24 hr 200 mg PO QAM RF: 0 cyanocobalamin (vitamin B-12) 100 mcg Tablet 200 mcg PO DAILY RF: 0 sennosides-docusate sodium [Senna-S] 8.6-50 mg Tablet 1 tab PO DAILY RF: 0 metoprolol succinate 100 mg tablet extended release 24 hr 100 mg PO QPM RF: 0 acetaminophen 500 mg Tablet 500 mg PO Q6H PRN (Reason: Fever Or Pain) RF: 0 amitriptyline 10 mg tablet 10 mg PO DAILY RF: 0 pantoprazole 40 mg tablet,delayed release (DR/EC) 40 mg PO BID RF: 0 ferrous sulfate 325 mg (65 mg iron) tablet 325 mg PO DAILY RF: 0 lisinopril 2.5 mg tablet 2.5 mg PO DAILY RF: 0 coenzyme Q10 [CoQ-10] 100 mg Capsule 300 mg PO DAILY RF: 0 cholecalciferol (vitamin D3) [Vitamin D3] 2,000 unit Capsule 4,000 unit PO DAILY RF: 0 aqsfcsiq-yxy-SP-lycopen-lutein [Centrum Silver Men] 300-600-300 mcg Tablet 1 tab PO DAILY RF: 0 Lactobacillus acidophilus [Probiotic] 10 billion cell Capsule 1 cap PO DAILY RF: 0 furosemide [Lasix] 20 MG tablet 40 mg PO DAILY RF: 0 tiotropium bromide 2.5 mcg/actuation mist 2 puff Inhalation DAILY RF: 0 diphenhydramine-acetaminophen [Tylenol PM Extra Strength] 25-500 mg Tablet 2 tab PO BEDTIME PRN (Reason: Sleep) RF: 0 Provider Discharge Instructions Diet: Diet as Tolerated, Low-fat, Low-sodium and Low-cholesterol Activity: Activity as tolerated Visit Report/Discharge Packet Instructions: DI for Viral Syndrome Discharge Data Primary Care Provider: José Truong Attending Provider: Stickle,H Graeme Admit Date/Time: 12/01/18 09:33 Quality VTE Deep Vein Thrombosis/Pulmonary Embolism Present on Admission: No
--- NOTE | 2018-12-03 15:02 | PC.NURSE ---
Discharge Pt denied pain. PIV removed prior to d/c after last dose of azithromycin. tele removed prior to d/c as well. d/c instructions provided to pt and his daughter. Aware to make apt with PCP tomorrow for hospital f/u. also aware to contact MD with any additional questions or concerns. pt took all belongings with him including wallet and keys from the safe. pt left in w/c with [facility] [employer]IST escort to car.
== END 2018-12-03 15:00 | disposition home or self-care (01) | DRG 194 ==
LOC: ED 06:42 → ICU 12:07 → AC 12-03 12:54 → ICU 04-18 11:33
PROVIDERS: Nurse Practitioner Adult Health; Admitting Provider Family Medicine; Emergency Provider Emergency Medicine; PCP Internal Medicine; Visit Provider Family Medicine
DX: J12.3 Human metapneumovirus pneumonia (principal); I50.22 Chronic systolic (congestive) heart failure; I11.0 Hypertensive heart disease with heart failure; I48.2 Chronic atrial fibrillation; J44.9 Chronic obstructive pulmonary disease, unspecified; Z87.891 Personal history of nicotine dependence; E78.5 Hyperlipidemia, unspecified; Z95.2 Presence of prosthetic heart valve; F41.9 Anxiety disorder, unspecified; R73.9 Hyperglycemia, unspecified; K59.00 Constipation, unspecified
CPT/HCPCS: 36415; 36591; 36600; 71045; 80048; 81003; 82550; 82805; 83036; 83605; 83735; 83880; 84145; 84484; 85025; 87040; 87070; 87205; 87400; 87633; 93005; 93306; 94640; 94760; 96361; 96365; 96366; 96367; 96375; 99283; 99285; G0378; J1940

== ENCOUNTER → 2019-08-29 15:22 | Outpatient (ROUT) | payer OTHER, SELFPAY ==
[2018-12-01 10:24] VITALS: BMI 24.0
[2019-08-29 15:40] LABS: Add Manual Diff / Slide Review NO; Basophils Absolute Auto 100 /uL (0-100); Basophils Percent Auto 0.8 % (0-2); Eosinophils Absolute Auto 100 /uL (0-450); Eosinophils Percent Auto 0.6 % (2-4); Hematocrit 42.2 % (41-53); Hemoglobin 14.3 g/dL (13.5-17.5); Lymphocytes Absolute Auto 800 /uL (1100-4500); Lymphocytes Percent Auto 8.1 % (25-40); Mean Corpuscular HGB Conc 33.9 % (30-36); Mean Corpuscular Hemoglobin 29.8 PG (26-34); Monocytes Absolute Auto 800 /uL (0-900); Monocytes Percent Auto 8.9 % (3-14); Neutrophils Absolute Auto 7600 /uL (1500-7000); Neutrophils Percent Auto 81.6 % (50-75); Platelet Count 232 X10^3/uL (150-400); Red Blood Cell Count 4.79 X10^6/uL (4.5-5.9); Red Cell Distribution Width 13.4 % (11.6-14.8); White Blood Cell Count 9.3 X10^3/uL (4.5-11.0)
[2019-08-29 15:52] LABS: Hemoglobin A1C% w Est Avg Glu 5.6 % (4.0-6.0)
[2019-08-29 15:53] LABS: Alanine Aminotransferase 28 IU/L (21-72); Albumin 4.9 g/dL (3.5-5.0); Albumin Globulin Ratio 1.8 (1.0-2.8); Alkaline Phosphatase 80 U/L (38-126); Aspartate Aminotransferase 27 IU/L (17-59); BUN Creatinine Ratio 21.8 (6-22); Bilirubin Total 0.6 mg/dL (0.2-1.3); Blood Urea Nitrogen 24 mg/dL (9-20); Calcium 9.5 mg/dL (8.4-10.2); Carbon Dioxide 34 mmol/L (22-32); Chloride 96 mmol/L (98-107); Cholesterol 111 mg/dL (140-199); Estimated Glomerular Filt Rate > 60.0 mL/min (>60); Globulin 2.7 g/dL (1.7-4.1); Glucose 114 mg/dL (80-110); HDL Cholesterol 25 mg/dL (40-60); HEMOLYSIS < 15 (0-50); LDL Cholesterol Calculated 57 mg/dL (<100); Potassium 4.9 mmol/L (3.4-5.1); Sodium 141 mmol/L (137-145); Total Protein 7.6 g/dL (6.3-8.2); Triglycerides 144 mg/dL (35-150)
[2019-08-29 16:19] LABS: TSH w/ Reflex to FT4 2.24 uIU/mL (0.47-4.68)
== END ==
PROVIDERS: PCP Internal Medicine; Visit Provider Internal Medicine
DX: I48.91 Unspecified atrial fibrillation (principal); E78.2 Mixed hyperlipidemia; R73.01 Impaired fasting glucose
CPT/HCPCS: 80053; 80061; 83036; 84443; 85025

== ENCOUNTER → 2020-03-13 10:34 | Outpatient (CLI) | payer MEDICARE, SELFPAY ==
[2018-12-01 10:24] VITALS: BMI 24.0
--- NOTE | 2020-03-13 10:38 | DI.RAD.S_ITS ---
PROCEDURE: XR CHEST 2V INDICATIONS: Progressive shortness of breath exertional fatigue TECHNIQUE: 2 views of the chest were acquired. COMPARISON: [facility], CR, XR CHEST 2V, 03/16/2018, 11:23. [facility], CR, XR CHEST 1V, 12/01/2018, 6:09. FINDINGS: Surgical changes and devices: Aortic and mitral valve replacements. Post median sternotomy. Lungs and pleura: Mildly prominent central pulmonary markings. No pleural effusions or pneumothorax. Mediastinum: Mediastinal contours are unchanged. Heart size is normal. Bones and chest wall: No suspicious bony abnormalities. Soft tissues appear unremarkable. IMPRESSION: Mild fluid overload. Dictated by: Ash Giles M.D. on 03/13/2020 at 11:11 Approved by: Ash Giles M.D. on 03/13/2020 at 11:14
== END ==
PROVIDERS: PCP Internal Medicine; Referring Provider Family Medicine; Visit Provider Family Medicine
DX: R06.02 Shortness of breath (principal); R53.83 Other fatigue; E87.70 Fluid overload, unspecified; I48.91 Unspecified atrial fibrillation; Z95.2 Presence of prosthetic heart valve
CPT/HCPCS: 71046

== ENCOUNTER 2020-03-14 10:38 | Emergency (ER) | payer MEDICARE, SELFPAY ==
[2018-12-01 10:24] VITALS: BMI 24.0
[2020-03-14 10:40] VITALS: PULSE 104; RESP 22; TEMP 36.9; O2SAT 97; BMI 23.7
--- NOTE | 2020-03-14 10:58 | DI.RAD.S_ITS ---
PROCEDURE: XR CHEST 1V INDICATIONS: chest pain TECHNIQUE: One view of the chest was acquired. COMPARISON: [facility], CR, XR CHEST 2V, 03/13/2020, 10:35. FINDINGS: Surgical changes and devices: Median sternotomy wires and prosthetic heart valves are seen. Lungs and pleura: Lungs are clear. No pleural effusions or pneumothorax. Mediastinum: Mediastinal contours appear normal. Heart size is normal. Bones and chest wall: No suspicious bony lesions. Overlying soft tissues appear unremarkable. IMPRESSION: No acute cardiopulmonary pathology. Dictated by: Jay Weinberg M.D. on 03/14/2020 at 11:18 Approved by: Jay Weinberg M.D. on 03/14/2020 at 11:22
--- NOTE | 2020-03-14 11:02 | ED_ITS ---
HPI - SOB/Dyspnea General Chief Complaint: Shortness of Breath/Dyspnea Stated Complaint: Trouble breathing, shaky Time Seen by Provider: 03/14/20 10:54 Source: patient and family (daughter) Mode of arrival: Ambulatory Limitations: no limitations History of Present Illness HPI Narrative: This is an 84-year-old male who comes to the emergency department with complaint of shortness of breath that was sudden onset. Patient states that he woke up this morning got out of bed did not feel short of breath initially in bed but when he started to walk across the room felt very short of breath any states this lasts about 45-60 minutes. He states during this episode he has not and did not have any chest pain or pressure, he has not had any recent fevers, chills or congestion. He denies any palpitations or fast hear tbeat. He has states he did feel little nauseated but no vomiting. He has not had any sweaty, clammy sensation. No swelling in his extremities, he has had normal bowel movements and urination. His daughter who is at bed stated states his appetite has been a little decreased lately. He has been self isolating on his own and lives independently in a condo. He does have a history of hypertension, a CABG with aortic valve replacement states he had 2 other valves modified about 7 years ago. He denies any cardiac stents, no dyslipidemia. He has had issues with atrial fibrillation in the past. He is not currently on any anticoagulation. He does have some memory issues which his daughter states are present. He did smoke tobacco until about 7 years ago and states he was a heavy smoker. He did have an extensive basal surgery with some papilloma is removed from his sinuses they were noncancerous but patient and family states it was a rather large surgery. No alcohol or illicit drugs. He follows with Dr. 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 Related Data Home Medications Medication Instructions Recorded Confirmed atorvastatin [Lipitor] 20 mg PO BEDTIME #0 05/16/17 03/13/20 loratadine 10 mg PO DAILY PRN #0 07/07/17 03/13/20 lorazepam 1 mg PO DAILY PRN #0 11/24/17 03/13/20 ascorbic acid (vitamin C) [Vitamin 1,000 mg PO DAILY 05/21/18 03/13/20 C] diltiazem HCl 360 mg PO DAILY 05/21/18 03/13/20 metoprolol succinate [Toprol XL] 200 mg PO QAM 05/21/18 03/13/20 Lactobacillus acidophilus 1 cap PO DAILY 12/01/18 03/13/20 [Probiotic] acetaminophen 500 mg PO Q6H PRN 12/01/18 03/13/20 amitriptyline 10 mg PO DAILY 12/01/18 03/13/20 cholecalciferol (vitamin D3) 4,000 unit PO DAILY 12/01/18 03/13/20 [Vitamin D3] coenzyme Q10 [CoQ-10] 300 mg PO DAILY 12/01/18 03/13/20 cyanocobalamin (vitamin B-12) 200 mcg PO DAILY 12/01/18 03/13/20 diphenhydramine-acetaminophen 2 tab PO BEDTIME PRN 12/01/18 03/13/20 [Tylenol PM Extra Strength] ferrous sulfate 325 mg PO DAILY 12/01/18 03/13/20 furosemide [Lasix] 40 mg PO DAILY 12/01/18 03/13/20 lisinopril 2.5 mg PO DAILY 12/01/18 03/13/20 metoprolol succinate 100 mg PO QPM 12/01/18 03/13/20 xcdhxogf-yon-DO-lycopen-lutein 1 tab PO DAILY 12/01/18 03/13/20 [Centrum Silver Men] pantoprazole 40 mg PO BID 12/01/18 03/13/20 sennosides-docusate sodium 1 tab PO DAILY 12/01/18 03/13/20 [Senna-S] Previous Rx's Medication Instructions Recorded guaifenesin 600 mg PO Q12HR PRN #10 tab 12/03/18 polyethylene glycol 3350 17 gm PO DAILY PRN #1 pkg 12/03/18 Allergies Allergy/AdvReac Type Severity Reaction Status Date / Time aspirin [ASPIRIN] Allergy Intermediate HIVES, Verified 03/14/20 11:05 EARS RING lactose [LACTOSE] Allergy Unknown Verified 03/14/20 11:05 Review of Systems Review of Systems ROS Unobtainable: All systems reviewed & are unremarkable except as noted in HPI and below Patient History Medical History Acquired arteriovenous malformation of stomach (Acute) Aortic valvular stenosis (Acute) Atrial fibrillation (Acute) Cholelithiasis (Acute) Chronic obstructive pulmonary disease (Acute) Fatigue (Acute) Gallstone pancreatitis (Acute) Generalized anxiety disorder (Acute) History of gastrointestinal hemorrhage (Acute) History of tobacco abuse (Acute) Hyperlipidemia (Acute) Hypertension (Acute) Restrictive lung disease (Acute) Rheumatoid arthritis (Acute) Surgical History H/O sinus surgery (Resolved) History of aortic valve replacement (Acute) History of colonoscopy (Acute) History of esophagogastroduodenoscopy (EGD) (Acute) History of sinus surgery (Acute) History of tonsillectomy (Resolved) History of tricuspid valve annuloplasty (Acute) Status post mitral valve annuloplasty (Acute) Family History Father Heart disease Hypertension Mother Heart disease Sister Heart disease Cancer Social History household members: none Smoking Status: Former smoker Tobacco: How many years used: 60 alcohol intake: former substance use type: does not use Smoking Status: Former smoker Substance Use Type: does not use Exam Narrative Exam Narrative: GENERAL: Alert and oriented male, patient is able to give jonathan ority of the history but the daughter does augment. He is at his normal mental baseline according to him and his daughter. HEENT: Head normocephalic, atraumatic, EOMI, pupils reactive, face symmetric, moist mucous membranes NECK: Supple, full range of motion CARDIOVASCULAR: Regular rate and rhythm without murmurs, rubs or gallops. RESPIRATORY: Breath sounds equal bilaterally, no wheezes rales or rhonchi. No tachypnea accessory muscle use. Speaks in full sentences. ABDOMEN: Soft, nontender. Normoactive bowel sounds all 4 quadrants. No guarding or rebound, rigidity, no mass, no bruit or pulsatile mass. : No CVA tenderness EXTREMITIES: Normal range of motion, no clubbing or edema. Neurovascularly intact NEUROLOGICAL: Cranial nerves II through XII grossly intact. Moving all extremities SKIN: Warm, dry, no petechiae, no rashes or lesions. Initial Vital Signs Initial Vital Signs: Vital Signs Temperature 98.5 F 03/14/20 10:40 Pulse Rate 104 H 03/14/20 10:40 Respiratory Rate 22 03/14/20 10:40 Pulse Oximetry 97 03/14/20 10:40 Course Orders Ordered: ED Orders 03/14/20 10:58 XR chest 1V Stat EKG-12 Lead Stat 03/14/20 11:05 Complete Blood Count AUTO DIFF Stat Comprehensive Metabolic Panel Stat Lipase Stat NT-proBNP (BNP-Adult 18+) Stat Partial Thromboplastin Time Stat Prothrombin Time INR Stat Troponin & CK Cardiac Panel Stat 03/14/20 13:00 EKG-12 Lead Stat 03/14/20 13:12 Troponin & CK Cardiac Panel Stat Vital Signs Vital signs: Vital Signs - 8 hr 03/14/20 10:40 03/14/20 12:30 03/14/20 13:30 Temperature 98.5 F Pulse Rate 104 H 69 66 Respiratory Rate 22 20 20 Blood Pressure [Left Arm] 129/62 132/59 L Pulse Oximetry 97 95 96 03/14/20 14:00 Temperature Pulse Rate 67 Respiratory Rate 22 Blood Pressure [Left Arm] 130/61 Pulse Oximetry 94 MDM - SOB/Dyspnea Lab Data Attestation: I reviewed the patient's lab results. Result diagrams: 03/14/20 11:05 03/14/20 11:05 Labs: Lab Results 03/14/20 03/14/20 03/14/20 Range/Units 11:05 11:05 11:05 WBC 9.7 (4.5-11.0) X10^3/uL RBC 4.77 (4.5-5.9) X10^6/uL Hgb 14.5 (13.5-17.5) g/dL Hct 42.4 (41-53) % MCV 89.0 (80-100) fL MCH 30.3 (26-34) PG MCHC 34.1 (30-36) % RDW 13.4 (11.6-14.8) % Plt Count 226 (150-400) X10^3/uL Neut % (Auto) 82.1 H (50-75) % Lymph % (Auto) 8.8 L (25-40) % [place] % (Auto) 8.4 (3-14) % Eos % (Auto) 0.2 L (2-4) % Baso % (Auto) 0.5 (0-2) % Neut # (Auto) 8000 H (9284-6765) /uL Lymph # (Auto) 900 L (3538-3725) /uL [place] # (Auto) 800 (0-900) /uL Eos # (Auto) 0 (0-450) /uL Baso # (Auto) 0 (0-100) /uL PT 11.9 (10.1-12.7) SECONDS INR 1.0 (0.9-1.3) APTT 31 D (26.4-36.2) SECONDS Sodium 136 L (137-145) mmol/L Potassium 4.1 (3.4-5.1) mmol/L Chloride 98 (98-107) mmol/L Carbon Dioxide 31 (22-32) mmol/L BUN 17 (9-20) mg/dL Creatinine 1.03 (0.66-1.25) mg/dL Estimated GFR > 60.0 (>60) mL/min BUN/Creatinine Ratio 16.5 (6-22) Glucose 120 H (80-110) mg/dL Calcium 9.5 (8.4-10.2) mg/dL Total Bilirubin 0.7 (0.2-1.3) mg/dL AST 33 (17-59) IU/L ALT 30 (<50) IU/L Alkaline Phosphatase 75 (38-126) U/L Total Creatine Kinase 30 L (55-170) U/L CK-MB (CK-2) TNP CK-MB (CK-2) Rel Index TNP Troponin I < 0.012 (0.01-0.034) ng/mL NT-Pro-B Natriuret Pep (<450) pg/mL Total Protein 8.1 (6.3-8.2) g/dL Albumin 4.8 (3.5-5.0) g/dL Globulin 3.3 (1.7-4.1) g/dL Albumin/Globulin Ratio 1.5 (1.0-2.8) Lipase 237 (23-300) U/L 03/14/20 03/14/20 Range/Units 11:05 13:12 WBC (4.5-11.0) X10^3/uL RBC (4.5-5.9) X10^6/uL Hgb (13.5-17.5) g/dL Hct (41-53) % MCV (80-100) fL MCH (26-34) PG MCHC (30-36) % RDW (11.6-14.8) % Plt Count (150-400) X10^3/uL Neut % (Auto) (50-75) % Lymph % (Auto) (25-40) % [place] % (Auto) (3-14) % Eos % (Auto) (2-4) % Baso % (Auto) (0-2) % Neut # (Auto) (0154-4258) /uL Lymph # (Auto) (2764-7113) /uL [place] # (Auto) (0-900) /uL Eos # (Auto) (0-450) /uL Baso # (Auto) (0-100) /uL PT (10.1-12.7) SECONDS INR (0.9-1.3) APTT (26.4-36.2) SECONDS Sodium (137-145) mmol/L Potassium (3.4-5.1) mmol/L Chloride (98-107) mmol/L Carbon Dioxide (22-32) mmol/L BUN (9-20) mg/dL Creatinine (0.66-1.25) mg/dL Estimated GFR (>60) mL/min BUN/Creatinine Ratio (6-22) Glucose (80-110) mg/dL Calcium (8.4-10.2) mg/dL Total Bilirubin (0.2-1.3) mg/dL AST (17-59) IU/L ALT (<50) IU/L Alkaline Phosphatase (38-126) U/L Total Creatine Kinase 32 L (55-170) U/L CK-MB (CK-2) TNP CK-MB (CK-2) Rel Index TNP Troponin I < 0.012 (0.01-0.034) ng/mL NT-Pro-B Natriuret Pep 604 H (<450) pg/mL Total Protein (6.3-8.2) g/dL Albumin (3.5-5.0) g/dL Globulin (1.7-4.1) g/dL Albumin/Globulin Ratio (1.0-2.8) Lipase (23-300) U/L Imaging Data Chest x-ray: Radiologist's Impression: [address] [place] [address] XRay Report Signed Patient: Marvin Diaz LMR#: [id number] : 7Acct:[id number] Age/Sex: 84 / MDate of Service: 03/14/20 Loc: ED Accession Number: [id number] Procedure: XR chest 1V Ordering Provider: Kalyani Parrish D.O. PROCEDURE: XR CHEST 1V INDICATIONS: chest pain TECHNIQUE: One view of the chest was acquired. COMPARISON: [facility], , XR CHEST 2V, 03/13/2020, 10:35. FINDINGS: Surgical changes and devices: Median sternotomy wires and prosthetic heart valves are seen. Lungs and pleura: Lungs are clear. No pleural effusions or pneumothorax. Mediastinum: Mediastinal contours appear normal. Heart size is normal. Bones and chest wall: No suspicious bony lesions. Overlying soft tissues appear unremarkable. IMPRESSION: No acute cardiopulmonary pathology. Dictated by: Jay Weinberg M.D. on 03/14/2020 at 11:18 Approved by: Jay Weinberg M.D. on 03/14/2020 at 11:22 ECG Data Attestation: I personally reviewed and interpreted this ECG as follows: Prior ECG tracings: available for review Interpretation: Sinus rhythm rate of 92 VA 208 QRS of 104 and QTC of 455 patient has prior from 12/01/2018 which shows flutter. No obvious ST segment changes. EKG #2, patient has a regular rhythm rate of 67 QRS is 108 and QTC 454. Patient does appear to be in flutter in 2, 3, AVF. 4:[address] [facility] Narrative Medical decision making narrative: Patient comes to department with 45-60 minutes of dypsnea which has improved. He has not had an obvious infectious changes, EKG shows no acute ST changes. CXR shows no acute changes, labs show elevated neutrophil percentage but normal white count and hemoglobin with low lymphocytes, normal with a sodium of 136 normal electrolytes and renal function with a glucose of 120, initial troponin is negative total CK is low at 30. LFTs are negative with normal lipase. proBNP shows, 600 range with no clinical or CXR findings consistent with pulm edema. Patient symptoms onset was about 0600 this morning. Patient had initial negative troponin, repeated at 1300 and is negative again. Discussed with patient and family possibly cardiac causes, no obvious infectious causes but may swab for covid if no other changes are noted. Also patient has had dysrhythmias with atrial fibrillation in the past and he may have had an episode of AFib he did not have any sensation of palpitations or racing were slow heartbeat. Discussed with cardiology as patient may have had an episode of arrhythmia with rapid ventricular response that may have caused his shortness of breath. Dr. Young states patient is chronically in afib/flutter and this is not unexpected. Would not recommend any changes at this time if he is rate controlled. Discussed with patient and daughter at bedside they feel comfortable with this plan. Covid swab sent and pending for several days. Return precautions discussed with patient and daughter. Discharge Plan Departure Patient Disposition: Home Clinical Impression: Dyspnea, Atrial flutter Discharge Date/Time: 03/14/20 14:48 Instructions: DI for Shortness of Breath Activity Restrictions/Additional Instructions: Follow up with your physician for recheck. Your EKG shows atrial fib/flutter but it is rate controlled today. Continue your home medications as prescribed. Return if you are having any recurrent symptoms, new chest pain, persistent shortness of breath, worsening cough, fevers, swelling in her extremities, lightheadedness or passing out or other new or concerning symptoms. *You have a covid-19 test pending. These typically result in 48-72 hours. *What to do: * per recommendations from the CDC and the [facility] Department of Health * stay home except to get medical care. Restrict activities outside your home, except for getting medical care. Do not go to work, school, or public areas. Avoid using public transportation, ride sharing, or taxis. * separate yourself from other people in your home. * call ahead before visiting your doctor * Wear a face mask * Cover your coughs and sneezes * Clean your hands often * Avoid sharing household items * Clean all high-touch services every day * Monitor your symptoms and seek prompt medical attention if your illness is worsening, particularly with difficulty in breathing. Discussed continuing home isolation * for individuals with symptoms who are confirmed or suspected cases of COVID-19 and are directed to care for themselves at home, discontinue home isolation under the following conditions: 1. At least 72 hours have passed since recovery, defined as resolution of fever without the use of fever reducing medications, and improvement in respiratory symptoms (cough, shortness of breath) AND, 2. At least 7 days have passed since symptoms 1st appeared Individuals with laboratory confirmed COVID-19 who have not had any symptoms may discontinue home isolation when at least 7 days have passed since the date of their 1st COVID-19 diagnostic test and have had no subsequent illness Prescriptions: No Action atorvastatin [Lipitor] 20 MG tablet 20 mg PO BEDTIME Qty: 0 RF: 0 loratadine 10 MG tablet 10 mg PO DAILY PRN (Reason: Allergy Symptoms) Qty: 0 RF: 0 lorazepam 1 MG tablet 1 mg PO DAILY PRN (Reason: Anxiety) Qty: 0 RF: 0 ascorbic acid (vitamin C) [Vitamin C] 500 mg Tablet 1,000 mg PO DAILY RF: 0 diltiazem HCl 180 MG capsule,extended release 24hr 360 mg PO DAILY RF: 0 metoprolol succinate [Toprol XL] 100 MG tablet extended release 24 hr 200 mg PO QAM RF: 0 cyanocobalamin (vitamin B-12) 100 mcg Tablet 200 mcg PO DAILY RF: 0 sennosides-docusate sodium [Senna-S] 8.6-50 mg Tablet 1 tab PO DAILY RF: 0 metoprolol succinate 100 mg tablet extended release 24 hr 100 mg PO QPM RF: 0 acetaminophen 500 mg Tablet 500 mg PO Q6H PRN (Reason: Fever Or Pain) RF: 0 amitriptyline 10 mg tablet 10 mg PO DAILY RF: 0 pantoprazole 40 mg tablet,delayed release (DR/EC) 40 mg PO BID RF: 0 ferrous sulfate 325 mg (65 mg iron) tablet 325 mg PO DAILY RF: 0 lisinopril 2.5 mg tablet 2.5 mg PO DAILY RF: 0 coenzyme Q10 [CoQ-10] 100 mg Capsule 300 mg PO DAILY RF: 0 cholecalciferol (vitamin D3) [Vitamin D3] 2,000 unit Capsule 4,000 unit PO DAILY RF: 0 idkryqug-xkz-OO-lycopen-lutein [Centrum Silver Men] 300-600-300 mcg Tablet 1 tab PO DAILY RF: 0 Lactobacillus acidophilus [Probiotic] 10 billion cell Capsule 1 cap PO DAILY RF: 0 furosemide [Lasix] 20 MG tablet 40 mg PO DAILY RF: 0 diphenhydramine-acetaminophen [Tylenol PM Extra Strength] 25-500 mg Tablet 2 tab PO BEDTIME PRN (Reason: Sleep) RF: 0 guaifenesin 600 mg Tablet Extended Release 12hr 600 mg PO Q12HR PRN (Reason: Cough) Qty: 10 RF: 0 polyethylene glycol 3350 17 gram Powder In Packet 17 gm PO DAILY PRN (Reason: Constipation) Qty: 1 RF: 0 Referrals: Koby Leone MD [Primary Care Provider] -
[2020-03-14 11:14] LABS: Add Manual Diff / Slide Review NO; Basophils Absolute Auto 0 /uL (0-100); Basophils Percent Auto 0.5 % (0-2); Eosinophils Absolute Auto 0 /uL (0-450); Eosinophils Percent Auto 0.2 % (2-4); Hematocrit 42.4 % (41-53); Hemoglobin 14.5 g/dL (13.5-17.5); Lymphocytes Absolute Auto 900 /uL (1100-4500); Lymphocytes Percent Auto 8.8 % (25-40); Mean Corpuscular HGB Conc 34.1 % (30-36); Mean Corpuscular Hemoglobin 30.3 PG (26-34); Monocytes Absolute Auto 800 /uL (0-900); Monocytes Percent Auto 8.4 % (3-14); Neutrophils Absolute Auto 8000 /uL (1500-7000); Neutrophils Percent Auto 82.1 % (50-75); Platelet Count 226 X10^3/uL (150-400); Red Blood Cell Count 4.77 X10^6/uL (4.5-5.9); Red Cell Distribution Width 13.4 % (11.6-14.8); White Blood Cell Count 9.7 X10^3/uL (4.5-11.0)
[2020-03-14 11:26] LABS: Prothrombin Time 11.9 SECONDS (10.1-12.7)
[2020-03-14 11:29] LABS: PTT Partial Thromboplastin Tim 31 SECONDS (26.4-36.2)
[2020-03-14 11:30] LABS: Alanine Aminotransferase 30 IU/L (<50); Albumin 4.8 g/dL (3.5-5.0); Albumin Globulin Ratio 1.5 (1.0-2.8); Alkaline Phosphatase 75 U/L (38-126); Aspartate Aminotransferase 33 IU/L (17-59); BUN Creatinine Ratio 16.5 (6-22); Bilirubin Total 0.7 mg/dL (0.2-1.3); Blood Urea Nitrogen 17 mg/dL (9-20); Calcium 9.5 mg/dL (8.4-10.2); Carbon Dioxide 31 mmol/L (22-32); Chloride 98 mmol/L (98-107); Creatine Kinase 30 U/L (55-170); Estimated Glomerular Filt Rate > 60.0 mL/min (>60); Globulin 3.3 g/dL (1.7-4.1); Glucose 120 mg/dL (80-110); HEMOLYSIS < 15 (0-50); Lipase 237 U/L (23-300); Potassium 4.1 mmol/L (3.4-5.1); Sodium 136 mmol/L (137-145); Total Protein 8.1 g/dL (6.3-8.2)
[2020-03-14 11:42] LABS: Troponin I < 0.012 ng/mL (0.01-0.034)
[2020-03-14 12:30] VITALS: BP 129/62; PULSE 69; RESP 20; O2SAT 95
[2020-03-14 13:08] LABS: NT-proBNP (BNP-Adult 18+) 604 pg/mL (<450)
[2020-03-14 13:29] LABS: Creatine Kinase 32 U/L (55-170)
[2020-03-14 13:30] VITALS: BP 132/59; PULSE 66; RESP 20; O2SAT 96
[2020-03-14 13:41] LABS: Troponin I < 0.012 ng/mL (0.01-0.034)
[2020-03-14 14:00] VITALS: BP 130/61; PULSE 67; RESP 22; O2SAT 94
[2020-03-17 00:49] LABS: COVID19 Sendout Not Detected (Not Detected)
== END 2020-03-14 14:48 | disposition home or self-care (01) ==
PROVIDERS: Emergency Provider Emergency Medicine; PCP Internal Medicine
DX: I48.92 Unspecified atrial flutter (principal); R06.00 Dyspnea, unspecified; I10 Essential (primary) hypertension; Z95.2 Presence of prosthetic heart valve
CPT/HCPCS: 36415; 71045; 80053; 82550; 83690; 83880; 84484; 85025; 85610; 85730; 87635; 93005; 99284

== ENCOUNTER → 2020-09-17 18:54 | Outpatient (ROUT) | payer MEDICARE, SELFPAY ==
[2018-12-01 10:24] VITALS: BMI 24.0
[2020-09-17 19:11] LABS: Aspartate Aminotransferase 28 IU/L (17-59); BUN Creatinine Ratio 21.1 (6-22); Blood Urea Nitrogen 24 mg/dL (9-20); Calcium 9.3 mg/dL (8.4-10.2); Carbon Dioxide 33 mmol/L (22-32); Chloride 98 mmol/L (98-107); Cholesterol 127 mg/dL (140-199); Estimated Glomerular Filt Rate > 60.0 mL/min (>60); Glucose 138 mg/dL (80-110); HDL Cholesterol 29 mg/dL (40-60); HEMOLYSIS < 15 (0-50); Hemoglobin A1C% w Est Avg Glu 5.8 % (4.0-6.0); LDL Cholesterol Calculated 41 mg/dL (<100); Potassium 4.2 mmol/L (3.4-5.1); Sodium 139 mmol/L (137-145); Triglycerides 287 mg/dL (35-150)
== END ==
PROVIDERS: PCP Internal Medicine; Visit Provider Internal Medicine
DX: I10 Essential (primary) hypertension (principal); E78.2 Mixed hyperlipidemia; R73.01 Impaired fasting glucose
CPT/HCPCS: 80048; 80061; 83036; 84450

== ENCOUNTER → 2021-01-07 18:51 | Outpatient (ROUT) | payer OTHER, SELFPAY ==
[2018-12-01 10:24] VITALS: BMI 24.0
[2021-01-07 19:07] LABS: Add Manual Diff / Slide Review NO; Basophils Absolute Auto 100 /uL (0-100); Basophils Percent Auto 0.8 % (0-2); Eosinophils Absolute Auto 100 /uL (0-450); Eosinophils Percent Auto 1.1 % (2-4); Hematocrit 40.3 % (41-53); Hemoglobin 13.6 g/dL (13.5-17.5); Lymphocytes Absolute Auto 800 /uL (1100-4500); Lymphocytes Percent Auto 9.9 % (25-40); Mean Corpuscular HGB Conc 33.7 % (30-36); Mean Corpuscular Hemoglobin 31.1 PG (26-34); Mean Corpuscular Volume 92.3 fL (80-100); Monocytes Absolute Auto 800 /uL (0-900); Monocytes Percent Auto 9.3 % (3-14); Neutrophils Absolute Auto 6800 /uL (1500-7000); Neutrophils Percent Auto 78.9 % (50-75); Platelet Count 223 X10^3/uL (150-400); Red Blood Cell Count 4.37 X10^6/uL (4.5-5.9); Red Cell Distribution Width 13.2 % (11.6-14.8); White Blood Cell Count 8.6 X10^3/uL (4.5-11.0)
[2021-01-07 19:15] LABS: Alanine Aminotransferase 19 IU/L (<50); Albumin 4.5 g/dL (3.5-5.0); Albumin Globulin Ratio 1.7 (1.0-2.8); Alkaline Phosphatase 67 U/L (38-126); Aspartate Aminotransferase 27 IU/L (17-59); BUN Creatinine Ratio 15.7 (6-22); Bilirubin Total 0.3 mg/dL (0.2-1.3); Blood Urea Nitrogen 14 mg/dL (9-20); Calcium 9.2 mg/dL (8.4-10.2); Carbon Dioxide 35 mmol/L (22-32); Chloride 97 mmol/L (98-107); Estimated Glomerular Filt Rate > 60.0 mL/min (>60); Globulin 2.6 g/dL (1.7-4.1); Glucose 98 mg/dL (80-110); HEMOLYSIS < 15 (0-50); Sodium 140 mmol/L (137-145); Total Protein 7.1 g/dL (6.3-8.2)
[2021-01-07 19:45] LABS: TSH w/ Reflex to FT4 1.13 uIU/mL (0.47-4.68)
[2021-01-07 20:04] LABS: Vitamin B12 791 pg/mL (239-931)
== END ==
PROVIDERS: PCP Internal Medicine; Visit Provider Internal Medicine
DX: R55 Syncope and collapse (principal); E03.9 Hypothyroidism, unspecified
CPT/HCPCS: 80053; 82607; 84443; 85025

== ENCOUNTER 2021-01-21 17:06 | Observation (INO) | payer OTHER, SELFPAY ==
[2018-12-01 10:24] VITALS: BMI 24.0
[2021-01-21] VITALS (19 sets, daily range): BP systolic 119–167; BP diastolic 58–77; PULSE 66–96; RESP 16–34; TEMP 36.6–36.7; O2SAT 93–98; BMI 23.3
--- NOTE | 2021-01-21 | DI.CT.S_ITS ---
PROCEDURE: CT ANGIO HEAD AND NECK INDICATIONS: TIAs, left-sided weakness (status post AVR) TECHNIQUE: After the administration of intravenous contrast, 1 mm thick sections acquired from the aortic arch through the [place] of [place]. Post-contrast 4.5 mm thick sections then re-acquired from the foramen magnum to the vertex. 3-dimensional ssefoqi-spnsonovf-qsroobzrum (MIP) and/or volume rendering reformats were acquired of the central intracranial vasculature and neck separately. COMPARISON: [facility], CT, CT HEAD/BRAIN WO CON, 01/21/2021, 18:09. FINDINGS: Image quality: Excellent. BRAIN: CSF spaces: Ventricles are normal in size and shape. Basal cisterns are patent. No extra-axial fluid collections. Brain: No midline shift. No intracranial bleeds or masses. Diez-white matter interface appears intact. Skull and face: Calvarium and facial bones appear intact, without suspicious lesions. Orbits appear normal. Sinuses: Sinuses and mastoids are clear. There are postoperative changes from prior right-sided sinus surgery. HEAD CT ANGIOGRAPHY: Anterior circulation: Moderate scattered atherosclerotic calcifications are present. Intracranial internal carotid arteries appear patent without high-grade stenosis. There is flow/opacification within the paired anterior cerebral arteries. The flow within the middle cerebral arteries appears normal and symmetric. The anterior communicating artery is seen. No aneurysms are seen. No occlusion. Posterior circulation: Visualized portions of the vertebral arteries are patent and join to form a normal appearing basilar artery. No evidence for high-grade stenosis. No occlusions. There is opacification of the posterior cerebral arteries. No aneurysms are seen. NECK CT ANGIOGRAPHY: Carotid system: The great vessels demonstrate a conventional anatomy as they arise from the aortic arch. The origins of the common carotid arteries appear patent. The common carotid arteries demonstrate normal caliber and courses. Scattered atherosclerotic calcifications most pronounced at the bifurcations bilaterally. No high-grade stenosis identified. No evidence for occlusion or dissection. Posterior circulation: The origins of the vertebral arteries both appear patent without hemodynamically significant stenosis. The more superior extracranial portions of both vertebral arteries also demonstrate normal courses and calibers. They join to form a normal appearing basilar artery. Soft tissues: Visualized neck soft tissues demonstrate no suspicious abnormalities. Bones: No suspicious bony lesions. Visualized cervical spine appears normally aligned. No acute compression fractures of the vertebral bodies. Moderate-severe multilevel cervical spondylitic changes seen throughout the imaged spine. IMPRESSION: 1. CT head without suspicious mass or enhancement. No evidence for mass or mass effect. 2. Scattered atherosclerosis of both the intracranial and extracranial carotid vasculature without high-grade stenosis or occlusion. Overall, negative CT angiogram of the head and neck. 3. Moderate-severe multilevel cervical spondylosis. Any quantitative measurements of stenosis were performed using NASCET criteria. Dictated by: Armando Dumont M.D. on 01/21/2021 at 21:19 Approved by: Armando Dumont M.D. on 01/21/2021 at 21:28
--- NOTE | 2021-01-21 18:05 | DI.CT.S_ITS ---
PROCEDURE: CT HEAD/BRAIN WO CON INDICATIONS: left arm weakness yesterday TECHNIQUE: Noncontrast 4.5 mm thick angled axial sections acquired from the foramen magnum to the vertex, with coronal and sagittal reformats. For radiation dose reduction, the following was used: automated exposure control, adjustment of mA and/or kV according to patient size. COMPARISON: None. FINDINGS: Image quality: Excellent. CSF spaces: Basal cisterns are patent. No extra-axial fluid collections. The ventricles are symmetric in size and shape. Brain: No intracranial bleeds or masses. There is cerebral volume loss for age, with resultant ventricular and sulcal prominence. There are periventricular and deep white matter chronic small vessel ischemic changes. There is intracranial internal carotid artery atherosclerosis. Skull and face: Calvarium and visualized facial bones appear intact, without suspicious lesions. Sinuses: Visualized sinuses and mastoids are clear. There are postsurgical changes of previous right sinus surgery. IMPRESSION: 1. CT head without acute intracranial abnormalities or acute calvarial fractures. 2. Age-related senescent changes and sequela of chronic small vessel ischemic disease. 3. Status post prior right sinus surgery. Dictated by: Armando Dumont M.D. on 01/21/2021 at 18:33 Approved by: Armando Dumont M.D. on 01/21/2021 at 18:35
[2021-01-21 18:12] LABS: Add Manual Diff / Slide Review NO; Basophils Absolute Auto 100 /uL (0-100); Basophils Percent Auto 0.7 % (0-2); Eosinophils Absolute Auto 100 /uL (0-450); Eosinophils Percent Auto 0.8 % (2-4); Hematocrit 43.6 % (41-53); Hemoglobin 14.6 g/dL (13.5-17.5); Lymphocytes Absolute Auto 1600 /uL (1100-4500); Lymphocytes Percent Auto 15.3 % (25-40); Mean Corpuscular HGB Conc 33.4 % (30-36); Mean Corpuscular Hemoglobin 30.5 PG (26-34); Mean Corpuscular Volume 91.5 fL (80-100); Monocytes Absolute Auto 900 /uL (0-900); Monocytes Percent Auto 9.1 % (3-14); Neutrophils Absolute Auto 7600 /uL (1500-7000); Neutrophils Percent Auto 74.1 % (50-75); Platelet Count 208 X10^3/uL (150-400); Red Blood Cell Count 4.77 X10^6/uL (4.5-5.9); White Blood Cell Count 10.2 X10^3/uL (4.5-11.0)
[2021-01-21 18:14] LABS: INR 1.1 (0.9-1.3); Prothrombin Time 12.2 SECONDS (10.1-12.7)
[2021-01-21 18:17] LABS: PTT Partial Thromboplastin Tim 34 SECONDS (26.4-36.2)
[2021-01-21 18:18] LABS: Alanine Aminotransferase 17 IU/L (<50); Albumin 4.7 g/dL (3.5-5.0); Albumin Globulin Ratio 1.6 (1.0-2.8); Alkaline Phosphatase 74 U/L (38-126); Aspartate Aminotransferase 24 IU/L (17-59); BUN Creatinine Ratio 14.9 (6-22); Bilirubin Total 0.3 mg/dL (0.2-1.3); Blood Urea Nitrogen 14 mg/dL (9-20); Calcium 9.3 mg/dL (8.4-10.2); Carbon Dioxide 31 mmol/L (22-32); Chloride 98 mmol/L (98-107); Estimated Glomerular Filt Rate > 60.0 mL/min (>60); Globulin 2.9 g/dL (1.7-4.1); Glucose 121 mg/dL (80-110); HEMOLYSIS < 15 (0-50); Lipase 202 U/L (23-300); Sodium 138 mmol/L (137-145); Total Protein 7.6 g/dL (6.3-8.2)
--- NOTE | 2021-01-21 18:35 | ED_ITS ---
HPI - Neuro Symptoms/Deficit General Chief Complaint: Neuro Symptoms/Deficit Stated Complaint: THINKS HAD A STROKE Time Seen by Provider: 01/21/21 17:58 Source: patient Mode of arrival: Ambulatory Limitations: no limitations History of Present Illness HPI Narrative: Patient is an 85-year-old male. He is here with his daughter. He does live alone he is here for evaluation of 2 separate episodes. He states that yesterday afternoon/evening he was sitting at home alone when he could not move his left arm. He potentially thinks that there was some left leg issues but he does admit that he was mostly focused on his left arm. There was no one around so he has no idea if there was any speech issues any does no idea if there were any facial droop associated with it. He denied any other associated symptoms include chest pain shortness of breath lightheadedness headache or vision changes. He thinks the symptoms lasted approximately 45 minutes and then completely resolved. He went to bed afterwards. Woke up this morning and felt fine. When he was over at his daughter's house earlier today taking care of her pets the same symptoms occurred again. Very similar as the prior. Again focused on his left arm. Again does not know whether not he had any visual or speech issues. It again lasted approximately 40 minutes and then completely resolved. He has never had anything like this in the past. He does have a history of a heart valve replacement. 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 He is not diabetic. Has never had a stroke before. On Anticoagulants: No Related Data Home Medications Medication Instructions Recorded Confirmed atorvastatin [Lipitor] 20 mg PO BEDTIME #0 05/16/17 03/13/20 loratadine 10 mg PO DAILY PRN #0 07/07/17 03/13/20 lorazepam 1 mg PO DAILY PRN #0 11/24/17 03/13/20 ascorbic acid (vitamin C) [Vitamin 1,000 mg PO DAILY 05/21/18 03/13/20 C] diltiazem HCl 360 mg PO DAILY 05/21/18 03/13/20 metoprolol succinate [Toprol XL] 200 mg PO QAM 05/21/18 03/13/20 Lactobacillus acidophilus 1 cap PO DAILY 12/01/18 03/13/20 [Probiotic] acetaminophen 500 mg PO Q6H PRN 12/01/18 03/13/20 amitriptyline 10 mg PO DAILY 12/01/18 03/13/20 cholecalciferol (vitamin D3) 4,000 unit PO DAILY 12/01/18 03/13/20 [Vitamin D3] coenzyme Q10 [CoQ-10] 300 mg PO DAILY 12/01/18 03/13/20 cyanocobalamin (vitamin B-12) 200 mcg PO DAILY 12/01/18 03/13/20 diphenhydramine-acetaminophen 2 tab PO BEDTIME PRN 12/01/18 03/13/20 [Tylenol PM Extra Strength] ferrous sulfate 325 mg PO DAILY 12/01/18 03/13/20 furosemide [Lasix] 40 mg PO DAILY 12/01/18 03/13/20 lisinopril 2.5 mg PO DAILY 12/01/18 03/13/20 metoprolol succinate 100 mg PO QPM 12/01/18 03/13/20 fgcexqib-sje-NA-lycopen-lutein 1 tab PO DAILY 12/01/18 03/13/20 [Centrum Silver Men] pantoprazole 40 mg PO BID 12/01/18 03/13/20 sennosides-docusate sodium 1 tab PO DAILY 12/01/18 03/13/20 [Senna-S] Previous Rx's Medication Instructions Recorded guaifenesin 600 mg PO Q12HR PRN #10 tab 12/03/18 polyethylene glycol 3350 17 gm PO DAILY PRN #1 pkg 12/03/18 Allergies Allergy/AdvReac Type Severity Reaction Status Date / Time aspirin [ASPIRIN] Allergy Intermediate HIVES, Verified 01/21/21 17:18 EARS RING lactose [LACTOSE] Allergy Unknown Verified 01/21/21 17:18 Review of Systems Constitutional Constitutional: Denies chills, Denies daytime sleepiness, Denies difficulty sleeping, Denies fatigue, Denies fever(s), Denies headache(s) and Reports weakness Eyes Eyes: Denies blurry vision and Denies change in vision ENT Ears, Nose, Mouth, and Throat: Denies vertigo, Denies dizziness, Denies headache(s), Denies disequilibrium and Denies sore throat Cardiovascular Cardiovascular: Denies chest pain, Denies rapid heart rate, Denies irregular heart rhythm, Denies lightheadedness and Denies dyspnea Respiratory Respiratory: Denies cough and Denies dyspnea Gastrointestinal Gastrointestinal: Denies abdominal pain, Denies nausea and Denies vomiting Genitourinary Genitourinary: Denies dysuria Genitourinary: Denies dysuria Musculoskeletal Musculoskeletal: Denies arthralgias, Denies myalgias and Denies tingling Integumentary/Breasts Skin/Breast: Denies rash Neurologic Neurologic: Denies abnormal speech, Denies behavioral changes, Denies burning sensations, Denies confusion, Denies vertigo, Denies dizziness, Denies headache(s), Denies tingling, Denies disequilibrium and Reports weakness Psychiatric Psychiatric: Denies anxiety, Denies behavioral changes and Denies confusion Endocrine Endocrine: Denies fatigue Hematologic/Lymphatic On Anticoagulants: No Patient History Medical History Acquired arteriovenous malformation of stomach Aortic valvular stenosis Atrial fibrillation Cholelithiasis Chronic obstructive pulmonary disease Fatigue Gallstone pancreatitis Generalized anxiety disorder History of gastrointestinal hemorrhage History of tobacco abuse Hyperlipidemia Hypertension Restrictive lung disease Rheumatoid arthritis Surgical History H/O sinus surgery History of aortic valve replacement History of colonoscopy History of esophagogastroduodenoscopy (EGD) History of sinus surgery History of tonsillectomy History of tricuspid valve annuloplasty Status post mitral valve annuloplasty Family History Father Heart disease Hypertension Mother Heart disease Sister Heart disease Cancer Social History household members: none Smoking Status: Former smoker Tobacco: How many years used: 60 alcohol intake: former substance use type: does not use Smoking Status: Former smoker alcohol intake frequency: 0-2 drinks per day Substance Use Type: does not use Exam Initial Vital Signs Initial Vital Signs: Vital Signs Temperature 97.9 F 01/21/21 17:06 Pulse Rate 69 01/21/21 17:06 Respiratory Rate 22 01/21/21 17:06 Pulse Oximetry 98 01/21/21 17:06 Const General: cooperative, comfortable, well developed and well groomed Limitations: mental status not altered HENMT Head: normal to inspection and normocephalic Eyes General: appearance normal, both eyes and all related structures Pupils: PERRL Resp Effort & Inspection: normal respiratory effort Auscultation: clear to auscultation bilaterally Cardio Rate: regular rate Rhythm: regular rhythm GI Inspection: non-distended Palpation: soft Skin Lesions: no lesions Rashes: no rashes Neuro General: patient alert, patient awake and patient oriented x3 Cranial Nerves: CN's II-XI intact bilaterally Cognition: normal cognition Speech: speech normal Gait: normal gait Motor: muscle tone normal throughout Sensory Exam: no sensory deficits noted Extrem General: normal to inspection and capillary refill normal Psych Appearance: grossly normal and well kempt Scores ABCD2 Age >= 60 years: yes Initial BP. Either SBP >= 140 or DBP >= 90.: yes Clinical features of the TIA: unilateral weakness Duration of symptoms: 10-59 minutes History of diabetes: no ABCD2 Score: 5 GCS D Hanis coma scale eye opening: Spontaneous Catherine coma scale verbal response: Orientated D Hanis coma scale motor response: Obey commands D Hanis coma scale total score: 15 NIH Stroke Scale Level of Conciousness: Alert, keenly responsive Ask month/age: Answers both questions correctly. Open/close eyes, close hand: Performs both tasks correctly Best gaze horizontal: Normal Visual tan: No visual loss Facial palsy: Normal symetrical movement Left arm drift: No drift for full 10 sec Right arm drift: No drift for full 10 sec Left leg drift: No drift for full 5 sec Right leg drift: No drift for full 5 sec Limb ataxia: Absent Sensory on face/arms/legs: Normal, no sensory loss Best language: No aphasia, normal Dysarthria: Normal Extinction or inattention: No abnormality Total NIH Stroke scale score: 0 Course Orders Ordered: ED Orders 01/21/21 17:22 Complete Blood Count AUTO DIFF Stat Comprehensive Metabolic Panel Stat Lipase Stat Partial Thromboplastin Time Stat Prothrombin Time INR Stat 01/21/21 18:05 CT head/brain wo con Stat 01/21/21 18:06 EKG-12 Lead Stat 01/21/21 20:20 COVID19 - ADMIT ([employer]ENTIST swab/PCR) Stat Vital Signs Vital signs: Vital Signs - 8 hr 01/21/21 17:06 01/21/21 17:12 01/21/21 17:25 Temperature 97.9 F Pulse Rate 69 75 69 Respiratory Rate 22 24 Blood Pressure 121/60 Pulse Oximetry 98 98 98 01/21/21 17:30 01/21/21 18:00 01/21/21 18:27 Temperature Pulse Rate 68 67 67 Respiratory Rate 21 20 16 Blood Pressure 119/58 L 167/69 H Pulse Oximetry 97 97 96 01/21/21 18:30 01/21/21 19:00 01/21/21 19:01 Temperature Pulse Rate 67 67 67 Respiratory Rate 34 H 23 26 H Blood Pressure 160/70 H 141/63 H Pulse Oximetry 97 96 96 01/21/21 19:30 01/21/21 19:38 01/21/21 20:00 Temperature Pulse Rate 67 66 68 Respiratory Rate 23 22 20 Blood Pressure 137/60 153/68 H 143/66 H Pulse Oximetry 95 93 96 01/21/21 20:30 01/21/21 20:31 Temperature Pulse Rate 68 68 Respiratory Rate 20 21 Blood Pressure 145/65 H Pulse Oximetry 95 94 MDM - Neuro Symptoms/Deficit Medical Records Attestation: I reviewed the patient's medical records. Lab Data Attestation: I reviewed the patient's lab results. Result diagrams: 01/21/21 17:22 01/21/21 17:22 Labs: Lab Results 01/21/21 01/21/21 01/21/21 Range/Units 17:22 17:22 17:22 WBC 10.2 (4.5-11.0) X10^3/uL RBC 4.77 (4.5-5.9) X10^6/uL Hgb 14.6 (13.5-17.5) g/dL Hct 43.6 (41-53) % MCV 91.5 (80-100) fL MCH 30.5 (26-34) PG MCHC 33.4 (30-36) % RDW 13.0 (11.6-14.8) % Plt Count 208 (150-400) X10^3/uL Neut % (Auto) 74.1 (50-75) % Lymph % (Auto) 15.3 L (25-40) % [place] % (Auto) 9.1 (3-14) % Eos % (Auto) 0.8 L (2-4) % Baso % (Auto) 0.7 (0-2) % Neut # (Auto) 7600 H (4579-8073) /uL Lymph # (Auto) 1600 (0981-7491) /uL [place] # (Auto) 900 (0-900) /uL Eos # (Auto) 100 (0-450) /uL Baso # (Auto) 100 (0-100) /uL PT 12.2 (10.1-12.7) SECONDS INR 1.1 (0.9-1.3) APTT 34 (26.4-36.2) SECONDS Sodium 138 (137-145) mmol/L Potassium 4.0 (3.4-5.1) mmol/L Chloride 98 (98-107) mmol/L Carbon Dioxide 31 (22-32) mmol/L BUN 14 (9-20) mg/dL Creatinine 0.94 (0.66-1.25) mg/dL Estimated GFR > 60.0 (>60) mL/min BUN/Creatinine Ratio 14.9 (6-22) Glucose 121 H (80-110) mg/dL Calcium 9.3 (8.4-10.2) mg/dL Total Bilirubin 0.3 (0.2-1.3) mg/dL AST 24 (17-59) IU/L ALT 17 (<50) IU/L Alkaline Phosphatase 74 (38-126) U/L Total Protein 7.6 (6.3-8.2) g/dL Albumin 4.7 (3.5-5.0) g/dL Globulin 2.9 (1.7-4.1) g/dL Albumin/Globulin Ratio 1.6 (1.0-2.8) Lipase 202 (23-300) U/L SARS-CoV-2 (PCR) (Negative) 01/21/21 Range/Units 20:20 WBC (4.5-11.0) X10^3/uL RBC (4.5-5.9) X10^6/uL Hgb (13.5-17.5) g/dL Hct (41-53) % MCV (80-100) fL MCH (26-34) PG MCHC (30-36) % RDW (11.6-14.8) % Plt Count (150-400) X10^3/uL Neut % (Auto) (50-75) % Lymph % (Auto) (25-40) % [place] % (Auto) (3-14) % Eos % (Auto) (2-4) % Baso % (Auto) (0-2) % Neut # (Auto) (1506-3808) /uL Lymph # (Auto) (0260-8086) /uL [place] # (Auto) (0-900) /uL Eos # (Auto) (0-450) /uL Baso # (Auto) (0-100) /uL PT (10.1-12.7) SECONDS INR (0.9-1.3) APTT (26.4-36.2) SECONDS Sodium (137-145) mmol/L Potassium (3.4-5.1) mmol/L Chloride (98-107) mmol/L Carbon Dioxide (22-32) mmol/L BUN (9-20) mg/dL Creatinine (0.66-1.25) mg/dL Estimated GFR (>60) mL/min BUN/Creatinine Ratio (6-22) Glucose (80-110) mg/dL Calcium (8.4-10.2) mg/dL Total Bilirubin (0.2-1.3) mg/dL AST (17-59) IU/L ALT (<50) IU/L Alkaline Phosphatase (38-126) U/L Total Protein (6.3-8.2) g/dL Albumin (3.5-5.0) g/dL Globulin (1.7-4.1) g/dL Albumin/Globulin Ratio (1.0-2.8) Lipase (23-300) U/L SARS-CoV-2 (PCR) Negative (Negative) Urine Dip Bedside Urine Glucose Negative Bedside Urine Bilirubin - Negative Bedside Urine Ketone - Negative Urine Specific [place] 1.025 Bedside Urine Occult Blood - Negative Bedside Urine pH 6 Bedside Urine Protein - Negative Bedside Urine Urobilinogen - Negative Bedside Urine Nitrite - Negative Bedside Urine Leukocytes - Negative Esterase Imaging Data CT scan - head: Radiologist's Impression: [address] [id number] Scan ReportSigned Patient: Marvin Diaz LMR#: [id number]: 1935cct:[id number]/Sex: 85 / MDate of Service: 01/21/21Loc: [id number] Number: [id number] Procedure: CT angio head and neck Ordering Provider: Liang Almaraz PROCEDURE: CT ANGIO HEAD AND NECK INDICATIONS: TIAs, left-sided weakness (status post AVR) TECHNIQUE: After the administration of intravenous contrast, 1 mm thick sections acquired from the aortic arch through the [place] of [place]. Post-contrast 4.5 mm thick sections then re-acquired from the foramen magnum to the vertex. 3-dimensional joptaxi-iliormsbs-llahsfpkdt (MIP) and/or volume rendering reformats were acquired of the central intracranial vasculature and neck separately. COMPARISON: [facility], CT, CT HEAD/BRAIN WO CON, 01/21/2021, 18:09. FINDINGS: Image quality: Excellent. BRAIN: CSF spaces: Ventricles are normal in size and shape. Basal cisterns are patent. No extra-axial fluid collections. Brain: No midline shift. No intracranial bleeds or masses. Diez-white matter interface appears intact. Skull and face: Calvarium and facial bones appear intact, without suspicious lesions. Orbits appear normal. Sinuses: Sinuses and mastoids are clear. There are postoperative changes from prior right-sided sinus surgery. HEAD CT ANGIOGRAPHY: Anterior circulation: Moderate scattered atherosclerotic calcifications are present. Intracranial internal carotid arteries appear patent without high-grade stenosis. There is flow/opacification within the paired anterior cerebral arteries. The flow within the middle cerebral arteries appears normal and symmetric. The anterior communicating artery is seen. No aneurysms are seen. No occlusion. Posterior circulation: Visualized portions of the vertebral arteries are patent and join to form a normal appearing basilar artery. No evidence for high-grade stenosis. No occlusions. There is opacification of the posterior cerebral arteries. No aneurysms are seen. NECK CT ANGIOGRAPHY: Carotid system: The great vessels demonstrate a conventional anatomy as they arise from the aortic arch. The origins of the common carotid arteries appear patent. The common carotid arteries demonstrate normal caliber and courses. Scattered atherosclerotic calcifications most pronounced at the bifurcations bilaterally. No high-grade stenosis identified. No evidence for occlusion or dissection. Posterior circulation: The origins of the vertebral arteries both appear patent without hemodynamically significant stenosis. The more superior extracranial portions of both vertebral arteries also demonstrate normal courses and calibers. They join to form a normal appearing basilar artery. Soft tissues: Visualized neck soft tissues demonstrate no suspicious abnormalities. Bones: No suspicious bony lesions. Visualized cervical spine appears normally aligned. No acute compression fractures of the vertebral bodies. Moderate-severe multilevel cervical spondylitic changes seen throughout the imaged spine. IMPRESSION: 1. CT head without suspicious mass or enhancement. No evidence for mass or mass effect. 2. Scattered atherosclerosis of both the intracranial and extracranial carotid vasculature without high-grade stenosis or occlusion. Overall, negative CT angiogram of the head and neck. 3. Moderate-severe multilevel cervical spondylosis. Any quantitative measurements of stenosis were performed using NASCET criteria. Dictated by: Armando Dumont M.D. on 01/21/2021 at 21:19 Approved by: Armando Dumont M.D. on 01/21/2021 at 21:28 ECG Data Attestation: I personally reviewed and interpreted this ECG as follows: Prior ECG tracings: not available for review Interpretation: Atrial flutter Ventricular rate is 68 4-[address] T wave changes MDM Narrative Medical decision making narrative: Patient's history and physical exam is concerning for TIAs. He does have history of atrial fibrillation and both he and his daughter thought it was around the time where he had his valve replacement. He is not on anticoagulation. He is in atrial flutter that is rate controlled here in the ER. He has a nonfocal neuro exam today. His head CT is unremarkable. Discussed the case then piece got the night hospitalist. I feel that admission to the hospital for further workup of TIA is warranted. I also discussed this with the patient and his daughter. They both expressed understanding and agreement. Discharge Plan Departure Patient Disposition: Admitted as Observation Clinical Impression: Transient cerebral ischemia, Atrial flutter Admit Date/Time: 01/21/21 21:14 Admit Provider: Liang Almaraz
[2021-01-21 21:35] LABS: COVID19 - ADMIT (NP swab/PCR) Negative (Negative)
--- NOTE | 2021-01-21 22:20 | DI.ECHO.S_ITS ---
[facility]---------[facility] +---------+ : : [address] : : : : [id number] : : : : Phone: [phone]+ Echocardiogram Report + + :Name: ADRIAN SOOD Study Date: 01/22/2021 Height: 72 in : :[facility] ReadingLocation: Weight: 172 lb: : Gender: Male BSA: 2.0 m2 : :: 1935 Age: 85 yrs : :Reason For Study: TIA : :Ordering Physician: HILTON, : :MAX Performed By: Jason Bonilla : :Referring: MAX CANELA : + + Interpretation Summary The left ventricle is grossly normal size. The ejection fraction is estimated to be 50-55%. There has been no significant change since the previous exam. The right ventricle is normal size.Right ventricular systolic function is moderately reduced. Right ventricular systolic function has decreased since previous exam. An annuloplasty ring is noted in the mitral position. The mean gradient across mitral valve about 6.8 mmHg and peak E velocity 1.68 m/s. Previous mean gradient was about 6 mmHg. There is mild mitral regurgitation. There is a bioprosthetic aortic valve. The prosthetic aortic valve is well-seated. The peak aortic velocity is 2.26 m/sec. The aortic valve mean gradient is 11.5 mmHg. The peak aortic velocity on the previous exam was 2.5 m/sec. There is trace intravalvular regurgitation through the prosthetic aortic valve. An annuloplasty ring is noted in the tricuspid position. There is mild to moderate tricuspid regurgitation. Compared to the prior echo exam, there has been an increase in TR severity. The right ventricular systolic pressure is estimated to be at least 33 mmHg based on an estimated right atrial pressure of 3 mm Hg. Procedure: The study quality was technically adequate. A two-dimensional transthoracic echocardiogram with color flow and Doppler was performed. The patient was in atrial fibrillation with rapid ventricular response during the exam with a heart rate exceeding 100 bpm. Left Ventricle: The left ventricle is grossly normal size. Proximal septal thickening is noted. There is no thrombus. Left ventricular systolic function is normal. The ejection fraction is estimated to be 50-55%. There has been no significant change since the previous exam. Septal motion is consistent with conduction abnormality. Septal motion is consistent with post-operative state. There is inferior wall hypokinesis. Diastolic function could not be accurately assessed due to atrial fibrillation. Right Ventricle: The right ventricle is normal size. Right ventricular systolic function is moderately reduced. Right ventricular systolic function has decreased since previous exam. Atria: The left atrium is mildly dilated. There has been no significant change since the previous study. Borderline right atrial enlargement. There is no Doppler evidence for an interatrial shunt. Mitral Valve: An annuloplasty ring is noted in the mitral position. No significant mitral valve stenosis. The mean gradient across mitral valve about 6.8 mmHg and peak E velocity 1.68 m/s. Previous mean gradient was about 6 mmHg. There is mild mitral regurgitation. Aortic Valve: There is a bioprosthetic aortic valve. There is probable normal prosthetic aortic valve function. There is trace intravalvular regurgitation through the prosthetic aortic valve. The prosthetic aortic valve is well-seated. The peak aortic velocity is 2.26 m/sec. The aortic valve mean gradient is 11.5 mmHg. The peak aortic velocity on the previous exam was 2.5 m/sec. Tricuspid Valve: An annuloplasty ring is noted in the tricuspid position. There is mild to moderate tricuspid regurgitation. The right ventricular systolic pressure is estimated to be at least 33 mmHg based on an estimated right atrial pressure of 3 mm Hg. Compared to the prior echo exam, there has been an increase in TR severity. Pulmonic Valve: The pulmonic valve is normal in structure and function. There is no pulmonic valvular regurgitation. Great Vessels: The aortic root is not well visualized. The dimensions of the ascending aorta are normal. The IVC is of normal diameter and collapses greater than 50% with a sniff. This suggests a low right atrial pressure of 3 mm Hg. Pericardium/ Pleura There is no pericardial effusion. There is no pleural effusion. MMode/2D Measurements & Calculations LVIDd: 5.0 cm asc Aorta Diam: 3.6 cm LVIDs: 3.7 cm FS: 26.6 % IVSd: 1.0 cm LVPWd: 0.91 cm LV vee. diameter/BSA (cm/m^2): 2.5 LV sys. diameter/BSA (cm/m^2): 1.9 LA A2 area: 22.4 cm2 RA long axis: 5.2 cm LA A4 area: 22.0 cm2 RA area: 20.0 cm2 LA length (vol): 5.9 cm RA vol: 65.1 ml LA vol: 71.4 ml RA : 32.6 ml/m2 LA vol index: 35.7 ml/m2 RVD1 (basal): 3.2 cm Doppler Measurements & Calculations Ao V2 max: 226.2 cm/sec LVOT Max Thomas: 112.4 cm/sec Ao V2 mean: 158.8 cm/sec LV V1 max P.1 mmHg Ao max P.5 mmHg LV V1 VTI: 22.4 cm Ao mean P.5 mmHg sev ratio: 0.56 Ao V2 VTI: 40.1 cm TR max thomas: 274.5 cm/sec MV V2 mean: 122.9 cm/sec TR max P.1 mmHg MV mean P.8 mmHg PA V2 max: 97.3 cm/sec MV V2 VTI: 32.3 cm PA V2 mean: 64.4 cm/sec PA mean P.9 mmHg PA pr(Accel): 52.5 mmHg Reading Physician:02:51 PM
--- NOTE | 2021-01-21 22:20 | PM.HP.1 ---
History of Present Illness History of Present Illness Date Patient Seen: 01/21/21 Time Patient Seen: 21:52 Chief complaint: THINKS HAD A STROKE Narrative: Mr. 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 The patient reports that he was sitting in his chair at home when his left arm became numb in length, he was not able to move his arm or hand which lasted for 40 minutes to an hour before resolving spontaneously. At the same time the patient states he developed word-finding difficulties which has been persistent since. The patient woke this morning in his normal state health 0 states not feeling well when he experienced a recurrent episode of left arm numbness and flaccidity prompting his presentation to the ER. He reports no falls or trauma and denies dizziness or ataxia. He denies headaches or visual changes, difficulties with chewing or swallowing. He denies chest pain and denies palpitations though he has a history of atrial fibrillation atrial flutter and has been unable to be anticoagulated due to his gastric AVM. He reports no shortness of breath, cough or wheezing. Denies epigastric or abdominal pain, nausea vomiting, changes in bowel or bladder habits. He does state that when he sitting in chair for prolonged time both legs ago cold and numb. Upon arrival the ER the patient has temperature 97.9?, heart rate of 69, blood pressure 121/60, respiratory rate of 22 saturating 98% on room air. A CT of the head is obtained which finds no acute intracranial processes, age-related chronic microvascular ischemic changes. Twelve lead EKG reveals atrial flutter predominant 4 1 conduction with a ventricular rate of 67. Incomplete right bundle branch block and anterior Q-waves. On laboratory analysis he has white count of 10.2, hemoglobin of 14.6, hematocrit 43.6 and platelets 208. His coagulation studies within normal limits. His chemistry finds a potassium of 4.0, BUN of 14 and creatinine 094. His nonfasting glucose is 121. His LFTs are within normal limits. His COVID-19 screening is negative. No definitive intervention was undertaken in the emergency department. Ordered a stat CT angio of the head neck S patient cannot have an MRI related to his aortic valve placement. The patient is admitted to the hospitalist service for further workup and evaluation of TIA. Patient History Medical History Acquired arteriovenous malformation of stomach Aortic valvular stenosis Atrial fibrillation Cholelithiasis Chronic obstructive pulmonary disease Fatigue Gallstone pancreatitis Generalized anxiety disorder History of gastrointestinal hemorrhage History of tobacco abuse Hyperlipidemia Hypertension Restrictive lung disease Rheumatoid arthritis Surgical History H/O sinus surgery History of aortic valve replacement History of colonoscopy History of esophagogastroduodenoscopy (EGD) History of sinus surgery History of tonsillectomy History of tricuspid valve annuloplasty Status post mitral valve annuloplasty Family & Social History Family History Father Heart disease Hypertension Mother Heart disease Sister Heart disease Cancer Social History: household members none Safety & Behavioral: Feels Safe in Current Yes Environment Been Physically Hurt or No Threatened By a Person Tobacco & Substance use: Smoking Status Former smoker alcohol intake former alcohol intake frequency 0-2 drinks per day Substance Use Type does not use Meds Home Medications and Allergies Home Medications Medication Instructions Recorded Confirmed Type atorvastatin [Lipitor] 20 mg PO BEDTIME #0 05/16/17 03/13/20 History loratadine 10 mg PO DAILY PRN #0 07/07/17 03/13/20 History lorazepam 1 mg PO DAILY PRN #0 11/24/17 03/13/20 History ascorbic acid (vitamin C) [Vitamin 1,000 mg PO DAILY 05/21/18 03/13/20 History C] diltiazem HCl 360 mg PO DAILY 05/21/18 03/13/20 History metoprolol succinate [Toprol XL] 200 mg PO QAM 05/21/18 03/13/20 History Lactobacillus acidophilus 1 cap PO DAILY 12/01/18 03/13/20 History [Probiotic] acetaminophen 500 mg PO Q6H PRN 12/01/18 03/13/20 History amitriptyline 10 mg PO DAILY 12/01/18 03/13/20 History cholecalciferol (vitamin D3) 4,000 unit PO DAILY 12/01/18 03/13/20 History [Vitamin D3] coenzyme Q10 [CoQ-10] 300 mg PO DAILY 12/01/18 03/13/20 History cyanocobalamin (vitamin B-12) 200 mcg PO DAILY 12/01/18 03/13/20 History diphenhydramine-acetaminophen 2 tab PO BEDTIME PRN 12/01/18 03/13/20 History [Tylenol PM Extra Strength] ferrous sulfate 325 mg PO DAILY 12/01/18 03/13/20 History furosemide [Lasix] 40 mg PO DAILY 12/01/18 03/13/20 History lisinopril 2.5 mg PO DAILY 12/01/18 03/13/20 History metoprolol succinate 100 mg PO QPM 12/01/18 03/13/20 History algqczmo-rst-RO-lycopen-lutein 1 tab PO DAILY 12/01/18 03/13/20 History [Centrum Silver Men] pantoprazole 40 mg PO BID 12/01/18 03/13/20 History sennosides-docusate sodium 1 tab PO DAILY 12/01/18 03/13/20 History [Senna-S] guaifenesin 600 mg PO Q12HR PRN #10 tab 12/03/18 03/13/20 Rx polyethylene glycol 3350 17 gm PO DAILY PRN #1 pkg 12/03/18 03/13/20 Rx Allergies Allergy/AdvReac Type Severity Reaction Status Date / Time aspirin [ASPIRIN] Allergy Intermediate HIVES, Verified 01/21/21 17:18 EARS RING lactose [LACTOSE] Allergy Unknown Verified 01/21/21 17:18 Review of Systems Review of Systems ROS: Yes All systems reviewed with the patient and are negative except as otherwise documented Exam Vital Signs (past 8 hours): - 01/21/21 17:06 01/21/21 17:12 01/21/21 17:25 Temperature 97.9 F Pulse Rate 69 75 69 Respiratory Rate 22 24 Blood Pressure 121/60 Pulse Oximetry 98 98 98 01/21/21 17:30 01/21/21 18:00 01/21/21 18:27 Temperature Pulse Rate 68 67 67 Respiratory Rate 21 20 16 Blood Pressure 119/58 L 167/69 H Pulse Oximetry 97 97 96 01/21/21 18:30 01/21/21 19:00 01/21/21 19:01 Temperature Pulse Rate 67 67 67 Respiratory Rate 34 H 23 26 H Blood Pressure 160/70 H 141/63 H Pulse Oximetry 97 96 96 01/21/21 19:30 01/21/21 19:38 01/21/21 20:00 Temperature Pulse Rate 67 66 68 Respiratory Rate 23 22 20 Blood Pressure 137/60 153/68 H 143/66 H Pulse Oximetry 95 93 96 01/21/21 20:30 01/21/21 20:31 Temperature Pulse Rate 68 68 Respiratory Rate 20 21 Blood Pressure 145/65 H Pulse Oximetry 95 94 Oxygen Delivery Method Room Air Narrative Exam Narrative: GENERAL APPEARANCE: well developed, well nourished, in no acute distress. HEENT: Symmetrical facies, no ptosis, PERRLA, conjunctiva clear, sclera is anicteric, EOMs intact without nystagmus, no sinus tenderness to percussion, no rhinorrhea, edentulous with upper and lower dentures, mucous membranes are moist and pink. NECK/THYROID: neck supple, no JVD, no carotid bruit, no thyromegaly, trachea midline. LYMPH NODES: no cervical or supraclavicular lymphadenopathy. SKIN: [place], warm and dry, no visible lesions, rashes, ulcerations or petechiae. HEART: Irregularly irregular rhythm, S1-S2, 1+ systolic murmur with click, no rubs or gallops, 2+ dorsalis pedis pulses,, no peripheral edema LUNGS: clear to auscultation bilaterally, no coarseness crackles or wheezing, no cough present CHEST: Symmetrical movement, no accessory muscle use, good tidal volume no pain on AP and lateral compression.. ABDOMEN: Soft, no distention, no abdominal tenderness, no guarding or peritoneal signs, no organomegaly, no flank or suprapubic tenderness, active bowel tones. BACK: Normal curvature, nontender to palpation. EXTREMITIES: moves all extremities, strength is 5/5 and symmetrical, no deformities or joint effusions. NEUROLOGIC: AAO x 3, expressive aphasia, cranial nerves II-XII grossly intact, no lateralizing symptoms, no ataxia, sensation intact to light touch, hearing grossly normal to speech. PSYCH: Good eye contact, cooperative, stable behavior Objective Labs Result Diagrams: 01/21/21 17:22 01/21/21 17:22 Labs: Laboratory Results - last 24 hr 01/21/21 01/21/21 01/21/21 17:22 17:22 17:22 WBC 10.2 RBC 4.77 Hgb 14.6 Hct 43.6 MCV 91.5 MCH 30.5 MCHC 33.4 RDW 13.0 Plt Count 208 Neut % (Auto) 74.1 Lymph % (Auto) 15.3 L [place] % (Auto) 9.1 Eos % (Auto) 0.8 L Baso % (Auto) 0.7 Neut # (Auto) 7600 H Lymph # (Auto) 1600 [place] # (Auto) 900 Eos # (Auto) 100 Baso # (Auto) 100 PT 12.2 INR 1.1 APTT 34 Sodium 138 Potassium 4.0 Chloride 98 Carbon Dioxide 31 BUN 14 Creatinine 0.94 Estimated GFR > 60.0 BUN/Creatinine Ratio 14.9 Glucose 121 H Calcium 9.3 Total Bilirubin 0.3 AST 24 ALT 17 Alkaline Phosphatase 74 Total Protein 7.6 Albumin 4.7 Globulin 2.9 Albumin/Globulin Ratio 1.6 Lipase 202 SARS-CoV-2 (PCR) 01/21/21 20:20 WBC RBC Hgb Hct MCV MCH MCHC RDW Plt Count Neut % (Auto) Lymph % (Auto) [place] % (Auto) Eos % (Auto) Baso % (Auto) Neut # (Auto) Lymph # (Auto) [place] # (Auto) Eos # (Auto) Baso # (Auto) PT INR APTT Sodium Potassium Chloride Carbon Dioxide BUN Creatinine Estimated GFR BUN/Creatinine Ratio Glucose Calcium Total Bilirubin AST ALT Alkaline Phosphatase Total Protein Albumin Globulin Albumin/Globulin Ratio Lipase SARS-CoV-2 (PCR) Negative Assessment & Plan Assessment & Plan narrative: This is an 85-year-old male patient with a past medical history significant for atrial fibrillation, atrial flutter, aortic stenosis (s/p AVR), COPD with restrictive lung disease, 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 1. Acute CVA, present on admission, active. -patient with focal left upper extremity numbness in flaccidity which is occurred and 2 episodes both times resolving spontaneously. However with the 1st episode patient developed expressive aphasia which has been persistent with word-finding difficulty. -head CT reveals no acute intracranial abnormalities, age-related chronic microvascular ischemic changes. -ordered a CT angiogram of the head neck as the patient has an aortic valve replacement and not a candidate for MRI. -reviewed EKG history finding chronic atrial flutter. Chads Vasc score is 4, HAS-BLED score is 3. The patient has not been able to be anticoagulated related to gastric AVM and has had prior GI bleed. -will obtain a lipid panel, TSH and hemoglobin A1c. -ordered echocardiogram in the morning. 2. Chronic atrial flutter with controlled rate, present on admission, active -patient denies complaints of chest pain and is unaware of his irregular cardiac rhythm. -continue metoprolol 100 mg twice daily, diltiazem 360 mg extended release daily. -cardiac telemetry. 3. Essential hypertension, chronic, stable. -patient presents with a blood pressure 121/60 reflecting could blood pressure control. -continue cardiac meds of metoprolol diltiazem as noted above. 4. Hyperlipidemia, chronic, stable -Will continue patient's home regimen of atorvastatin 20 mg daily. -will obtain lipid panel and adjust dosages indicated. 5. COPD with restrictive lung disease, chronic, stable. -patient denies shortness of breath, oxygen saturation room air is 98%. -will monitor respirations with continuous pulse ox. VTE prophylaxis: Enoxaparin IV fluid: Saline lock Diet: Heart healthy low-sodium Code status: Full code, patient designates his daughter Medina to be his surrogate decision maker. The patient is admitted to the hospital due to the severity of symptoms requiring further evaluation and monitoring. The patient is admitted as observation status with expected length of stay to be less than 2 midnights. scoric COVID-19 COVID-19 status: Negative Result date/Date tested (Pos, Neg/Pending): 01/21/21 Scores GCS Catherine coma scale eye opening: Spontaneous Catherine coma scale verbal response: Orientated Catherine coma scale motor response: Obey commands Catherine coma scale total score: 15 NIHSS Level of Conciousness: Alert, keenly responsive Ask month/age: Answers both questions correctly. Open/close eyes, close hand: Performs both tasks correctly Best gaze horizontal: Normal Visual tan: No visual loss Facial palsy: Normal symetrical movement Left arm drift: No drift for full 10 sec Right arm drift: No drift for full 10 sec Left leg drift: No drift for full 5 sec Right leg drift: No drift for full 5 sec Limb ataxia: Absent Sensory on face/arms/legs: Normal, no sensory loss Best language: Mild to moderate, slurs some words Dysarthria: Normal Extinction or inattention: No abnormality Total NIH Stroke scale score: 1 Quality MIPS - Admit I confirm the patient?s Advance Care Plan is present, Code status is documented, Surrogate decision maker is in patient?s record [If Yes, STOP here]: Yes
[2021-01-21 22:35] LABS: Magnesium 1.9 mg/dL (1.6-2.3)
[2021-01-21 22:45] LABS: NT-proBNP (BNP-Adult 18+) 1120 pg/mL (<450)
[2021-01-21] MEDS: ATORVASTATIN 20 MG TABLET PO (22:52)
[2021-01-21] MEDS: METOPROLOL ER 50 MG TABLET 200 MG PO (22:52)
[2021-01-21] MEDS: SODIUM CHLORIDE 0.9% FLUSH 10 ML IV (22:52)
[2021-01-21] MEDS: PANTOPRAZOLE 40 MG TABLET PO (22:52)
[2021-01-21 22:56] LABS: Hemoglobin A1C% w Est Avg Glu 5.6 % (4.0-6.0)
[2021-01-21] MEDS: MAGNESIUM OXIDE 400 MG TABLET PO (23:41)
--- NOTE | 2021-01-21 23:45 | PC.NURSE ---
Admit Note- Patient arrived to room via stretcher from ER at 2200. Admit questions done, skin check done. Patient and oriented and forgetfull. Bed alarm activated for safety. Patient will need frequent reminding to call for assistance. Wallet with [employer] and debit card placed in safe. Safety measures in place. bed alarm activated. call jha and phone within reach. will continue to monitor.
[2021-01-22 00:37] LABS: Troponin I < 0.012 ng/mL (0.01-0.034)
[2021-01-22] MEDS: MELATONIN 3 MG TABLET 6 MG PO (01:52)
--- NOTE | 2021-01-22 02:37 | PC.NURSE ---
0020 patient is oriented to self, birthdate, age and place. NIH was 1 due to inability to identify month. Breath sounds CTA with RA sat of 97%; on continuous pulse oximetry. HR irregular and telemetry reading was aflutter. Denies nausea. BT present and states he is passing flatus. Voiding per urinal and denies dysuria, frequency or urgency. Is able to move himself in bed. Gait not assessed at this time but reports he normally walks independently with assistive device and denies any weakness or falls. Denies pain. Bilateral calf SCD's on but around 0150 requested they be removed as not able to sleep. Sung GONZALES, contacted as patient requests sleep medication and Melatonin was ordered and administered. Denies tingling/numbness at present time but states his bilateral LE become cold and numb when he sits for longer periods of time. Fall risk score is high and bed alarm is activated.
[2021-01-22 05:00] VITALS: BP 137/78; PULSE 77; RESP 16; TEMP 36.1; O2SAT 98
[2021-01-22 06:52] LABS: Add Manual Diff / Slide Review NO; Basophils Absolute Auto 100 /uL (0-100); Basophils Percent Auto 0.7 % (0-2); Eosinophils Absolute Auto 100 /uL (0-450); Eosinophils Percent Auto 1.2 % (2-4); Hematocrit 42.1 % (41-53); Lymphocytes Absolute Auto 900 /uL (1100-4500); Lymphocytes Percent Auto 10.6 % (25-40); Mean Corpuscular HGB Conc 33.2 % (30-36); Mean Corpuscular Hemoglobin 30.3 PG (26-34); Mean Corpuscular Volume 91.2 fL (80-100); Monocytes Absolute Auto 700 /uL (0-900); Monocytes Percent Auto 8.3 % (3-14); Neutrophils Absolute Auto 6500 /uL (1500-7000); Neutrophils Percent Auto 79.2 % (50-75); Platelet Count 181 X10^3/uL (150-400); Red Blood Cell Count 4.62 X10^6/uL (4.5-5.9); Red Cell Distribution Width 13.5 % (11.6-14.8); White Blood Cell Count 8.3 X10^3/uL (4.5-11.0)
[2021-01-22 07:04] LABS: BUN Creatinine Ratio 15.8 (6-22); Blood Urea Nitrogen 12 mg/dL (9-20); Calcium 9.2 mg/dL (8.4-10.2); Carbon Dioxide 32 mmol/L (22-32); Chloride 101 mmol/L (98-107); Cholesterol 115 mg/dL (140-199); Estimated Glomerular Filt Rate > 60.0 mL/min (>60); Glucose 114 mg/dL (80-110); HDL Cholesterol 26 mg/dL (40-60); HEMOLYSIS < 15 (0-50); LDL Cholesterol Calculated 60 mg/dL (<100); Potassium 4.5 mmol/L (3.4-5.1); Sodium 137 mmol/L (137-145); Triglycerides 147 mg/dL (35-150)
[2021-01-22 07:15] VITALS: BP 128/67; PULSE 70; RESP 14; TEMP 35.9; O2SAT 96
--- NOTE | 2021-01-22 09:30 | PT.IIE ---
Surgical History (Last Reviewed 01/22/21 @ 00:15 by CHRISTIAN Cruz) H/O sinus surgery History of aortic valve replacement History of colonoscopy History of esophagogastroduodenoscopy (EGD) History of sinus surgery History of tonsillectomy History of tricuspid valve annuloplasty Status post mitral valve annuloplasty Medical History (Last Reviewed 01/22/21 @ 00:15 by CHRISTIAN Cruz) Acquired arteriovenous malformation of stomach Aortic valvular stenosis Atrial fibrillation Cholelithiasis Chronic obstructive pulmonary disease Fatigue Gallstone pancreatitis Generalized anxiety disorder History of gastrointestinal hemorrhage History of tobacco abuse Hyperlipidemia Hypertension Restrictive lung disease Rheumatoid arthritis Physical Therapy Inpatient Evaluation/Re-Eval M1 PT/OT-IP Prior Functional Status Start: 01/22/21 11:56 Freq: NEEDED Status: Active Protocol: Document 01/22/21 09:30 AB (Rec[facility]22[facility]21 12[email or web address] Medical Review Prior Functional Status Medical History Reviewed Yes Communication able to make needs known Mobility and Gait pt stated that he is independent with all mobilities and ambulation without AD Social History Household Members none Living Arrangements Apartment/Condo Number of Floors (Floors) One Floor Number of Stairs To Enter/Railing? no steps to enter Home Environment Standard Height Toilet,Walk in Shower,Built-In Shower Seat Home Equipment Straight Cane,Hand Held Shower ,Grab Bars In Shower Additional Social History Comment daughters checks on pt M2 PT-IP Current Condition Start: 01/22/21 11:56 Freq: NEEDED Status: Active Protocol: Document 01/22/21 09:30 AB (Rec: 01/22/21 12:[email or web address] Physical Therapy Current Condition Current Condition Evaluation Date 01/22/21 Treatment Diagnosis CVA; difficulty in walking Onset Date 01/21/21 M3 PT-IP Subjective Start: 01/22/21 11:56 Freq: NEEDED Status: Active Protocol: Document 01/22/21 09:30 AB (Rec: 01/22/21 12:21 AB [email or web address]) Subjective Physical Therapy Visit Type Type Initial Evaluation Visit Start Time 09:30 Visit Stop Time 09:51 Total Visit Minutes 21 Number of JEWELRY FINISHER Visits 0 Physical Therapy Visit Comments Patient Comments pt is agreeable to do PT M4 PT-IP Mobility and Gait Start: 01/22/21 11:56 Freq: NEEDED Status: Active Protocol: Document 01/22/21 09:30 AB (Rec: 01/22/21 12:21 AB [id number]) PT-Bed Mobility Assessment Supine to Sit Supine to Sit Standby Assistance Sit to Supine Sit to Supine Standby Assistance Scooting Scooting to Edge of Bed Standby Assistance PT-Transfer Assessment Sit to and From Stand Sit to and from Stand Standby Assistance Equipment Transfer Assistive Device None,Gait Belt Orthotic/Prosthetic Devices or Brace: No Transfers Transfer Destination Chair Transfer Technique ambulated without AD Transfer Ability Level of Assist Standby Assistance Comments Mobility Comments pt completed bed mobility supine <>sit SBA. pt can be impulsive. completed sit to stand x 5 SBA without use of UE but was unsteady with initial standing with first 2 reps and educated on safety and being stable and able to complete with improve steadiness. ambulated in room without AD SBA 50 ft. presents with unsteady gait with slight LOB but able to catch self. educated pt on safety and slowing down and pt understood. completed tinetti balance assessment: pt agreed to sit up on chair. ambulated to the chair without AD SBA. positioned on chair. call light and table placed within reach. Gait Assessment Gait Gait Assistance Required: Standby Assistance Distance (Feet) 50 Able to Maintain Weight Bearing Status Yes During Gait Assistive Devices Assistive Device None,Gait Belt Orthotic/Prosthetic Devices or Brace: No Gait Deviations General Gait Pattern Antalgic Factors Limiting Gait Function Factors Limiting Gait Function Decreased Activity Tolerance, Decreased Strength,Limited Range of Motion,Poor Balance, Poor Safety Awareness PT-Balance Assessment Sitting Balance and Reactions Static Sitting Balance Ability Good Dynamic Sitting Balance Ability Good Standing Balance and Reactions Static Standing Balance Ability Good Dynamic Standing Balance Ability Fair Device Used without AD Functional Assessments Functional Tests Tinetti Balance and Gait Assessment bal: 10/15 gait: 09/11 total: : mod fall risk M5 PT-IP Objective Assessments Start: 01/22/21 11:56 Freq: NEEDED Status: Active Protocol: Document 01/22/21 09:30 AB (Rec: 01/22/21 12:21 AB [id number]) Orientation Orientation/Cognition Level of Alertness Alert Orientation Name Safety Awareness Decreased Safety Awareness Gross Range of Motion Lower Extremity ROM Assessment Within Functional Limits Strength Lower Extremity Strength Assessment Within Functional Limits Sensation Assessment Sensation Gross Sensation Right LE Impaired,Left LE Impaired Sensation Description Numbness,Tingling Comments Sensation Comments c/o chronic BLE tingling/ numbness Muscle Tone Muscle Tone WNL Yes Other Assessments Other Other Assessments pt with forward head posture M6 PT-IP Treatment Start: 01/22/21 11:56 Freq: NEEDED Status: Active Protocol: Document 01/22/21 09:30 AB (Rec: 01/22/21 12:21 AB [email or web address]) Physical Therapy Treatment Education Education Provided Safety M7 PT-IP Assessment and Plan Start: 01/22/21 11:56 Freq: NEEDED Status: Active Protocol: Document 01/22/21 09:30 AB (Rec: 01/22/21 12:21 AB [email or web address]) PT Summary Assessment and Plan Potential Rehabilitation Potential Good Status of Condition at Evaluation Stable Summary Impairments Pain,ROM,Strength,Balance, Coordination,Sensation,Tone, Cognition,Bed Mobility, Transfers,Gait,Activity Tolerance Assessment Summary pt requiring SBA with moblity without AD. pt can be impulsive affecting mobility and safety awareness. pt is unsteady with ambulation with slight LOB but able to catch self. pt stated that he has chronic LE numbness/tingling but dissipates with ambulation . Goals Bed Mobility Goal Independent Transfer Goal Independent Gait Goal Independent Gait Distance 250 Days to Meet Goals 3 Frequency of Treatment Frequency Of Treatment Once a Day Treatment Plan Physical Therapy Treatment Plan Bed Mobility Training,Transfer Training,Gait Training, Therapeutic Exercise,Balance Retraining,Discharge Planning, Neuromuscular Re-ed, Coordination Retraining Precautions Other Precautions falls Recommendations To Nursing Amount of Assist Needed Standby Assistance Discharge Recommendations PT Discharge Recommendations Home with Assistance Transportation Needs at Discharge Private Vehicle
--- NOTE | 2021-01-22 09:30 | PT.IIE ---
Surgical History (Last Reviewed 01/22/21 @ 00:15 by CHRISTIAN Cruz) H/O sinus surgery History of aortic valve replacement History of colonoscopy History of esophagogastroduodenoscopy (EGD) History of sinus surgery History of tonsillectomy History of tricuspid valve annuloplasty Status post mitral valve annuloplasty Medical History (Last Reviewed 01/22/21 @ 00:15 by CHRISTIAN Cruz) Acquired arteriovenous malformation of stomach Aortic valvular stenosis Atrial fibrillation Cholelithiasis Chronic obstructive pulmonary disease Fatigue Gallstone pancreatitis Generalized anxiety disorder History of gastrointestinal hemorrhage History of tobacco abuse Hyperlipidemia Hypertension Restrictive lung disease Rheumatoid arthritis Physical Therapy Inpatient Evaluation/Re-Eval M1 PT/OT-IP Prior Functional Status Start: 01/22/21 11:56 Freq: NEEDED Status: Active Protocol: Document 01/22/21 09:30 AB ([facility] Medical Review Prior Functional Status Medical History Reviewed Yes Communication able to make needs known Mobility and Gait pt stated that he is independent with all mobilities and ambulation without AD Social History Household Members none Living Arrangements Apartment/Condo Number of Floors (Floors) One Floor Number of Stairs To Enter/Railing? no steps to enter Home Environment Standard Height Toilet,Walk in Shower,Built-In Shower Seat Home Equipment Straight Cane,Hand Held Shower ,Grab Bars In Shower Additional Social History Comment daughters checks on pt M2 PT-IP Current Condition Start: 01/22/21 11:56 Freq: NEEDED Status: Active Protocol: Document 01/22/21 09:30 AB ([facility] Physical Therapy Current Condition Current Condition Evaluation Date 01/22/21 Treatment Diagnosis CVA; difficulty in walking Onset Date 01/21/21 M3 PT-IP Subjective Start: 01/22/21 11:56 Freq: NEEDED Status: Active Protocol: Document 01/22/21 09:30 AB (Rec: 01/22/21 12:21 AB [id number]) Subjective Physical Therapy Visit Type Type Initial Evaluation Visit Start Time 09:30 Visit Stop Time 09:51 Total Visit Minutes 21 Number of TRUCKSMITH Visits 0 Physical Therapy Visit Comments Patient Comments pt is agreeable to do PT M4 PT-IP Mobility and Gait Start: 01/22/21 11:56 Freq: NEEDED Status: Active Protocol: Document 01/22/21 09:30 AB (Rec: 01/22/21 12:21 AB [id number]) PT-Bed Mobility Assessment Supine to Sit Supine to Sit Standby Assistance Sit to Supine Sit to Supine Standby Assistance Scooting Scooting to Edge of Bed Standby Assistance PT-Transfer Assessment Sit to and From Stand Sit to and from Stand Standby Assistance Equipment Transfer Assistive Device None,Gait Belt Orthotic/Prosthetic Devices or Brace: No Transfers Transfer Destination Chair Transfer Technique ambulated without AD Transfer Ability Level of Assist Standby Assistance Comments Mobility Comments pt completed bed mobility supine <>sit SBA. pt can be impulsive. completed sit to stand x 5 SBA without use of UE but was unsteady with initial standing with first 2 reps and educated on safety and being stable and able to complete with improve steadiness. ambulated in room without AD SBA 50 ft. presents with unsteady gait with slight LOB but able to catch self. educated pt on safety and slowing down and pt understood. completed tinetti balance assessment: pt agreed to sit up on chair. ambulated to the chair without AD SBA. positioned on chair. call light and table placed within reach. Gait Assessment Gait Gait Assistance Required: Standby Assistance Distance (Feet) 50 Able to Maintain Weight Bearing Status Yes During Gait Assistive Devices Assistive Device None,Gait Belt Orthotic/Prosthetic Devices or Brace: No Gait Deviations General Gait Pattern Antalgic Factors Limiting Gait Function Factors Limiting Gait Function Decreased Activity Tolerance, Decreased Strength,Limited Range of Motion,Poor Balance, Poor Safety Awareness PT-Balance Assessment Sitting Balance and Reactions Static Sitting Balance Ability Good Dynamic Sitting Balance Ability Good Standing Balance and Reactions Static Standing Balance Ability Good Dynamic Standing Balance Ability Fair Device Used without AD M5 PT-IP Objective Assessments Start: 01/22/21 11:56 Freq: NEEDED Status: Active Protocol: Document 01/22/21 09:30 AB (Rec: 01/22/21 12:21 AB [id number]) Orientation Orientation/Cognition Level of Alertness Alert Orientation Name Safety Awareness Decreased Safety Awareness Gross Range of Motion Lower Extremity ROM Assessment Within Functional Limits Strength Lower Extremity Strength Assessment Within Functional Limits Sensation Assessment Sensation Gross Sensation Right LE Impaired,Left LE Impaired Sensation Description Numbness,Tingling Comments Sensation Comments c/o chronic BLE tingling/ numbness Muscle Tone Muscle Tone WNL Yes Other Assessments Other Other Assessments pt with forward head posture M6 PT-IP Treatment Start: 01/22/21 11:56 Freq: NEEDED Status: Active Protocol: Document 01/22/21 09:30 AB (Rec: 01/22/21 12:21 AB [id number]) Physical Therapy Treatment Education Education Provided Safety M7 PT-IP Assessment and Plan Start: 01/22/21 11:56 Freq: NEEDED Status: Active Protocol: Document 01/22/21 09:30 AB (Rec: 01/22/21 12:21 AB [id number]) PT Summary Assessment and Plan Potential Rehabilitation Potential Good Status of Condition at Evaluation Stable Summary Impairments Pain,ROM,Strength,Balance, Coordination,Sensation,Tone, Cognition,Bed Mobility, Transfers,Gait,Activity Tolerance Assessment Summary pt requiring SBA with moblity without AD. pt can be impulsive affecting mobility and safety awareness. pt is unsteady with ambulation with slight LOB but able to catch self. pt stated that he has chronic LE numbness/tingling but dissipates with ambulation . Goals Bed Mobility Goal Independent Transfer Goal Independent Gait Goal Independent Gait Distance 250 Days to Meet Goals 3 Frequency of Treatment Frequency Of Treatment Once a Day Treatment Plan Physical Therapy Treatment Plan Bed Mobility Training,Transfer Training,Gait Training, Therapeutic Exercise,Balance Retraining,Discharge Planning, Neuromuscular Re-ed, Coordination Retraining Precautions Other Precautions falls Recommendations To Nursing Amount of Assist Needed Standby Assistance Discharge Recommendations PT Discharge Recommendations Home with Assistance Transportation Needs at Discharge Private Vehicle
[2021-01-22 09:39] VITALS: BP 128/67; PULSE 71
[2021-01-22] MEDS: lisinopriL 5 MG TABLET 2.5 MG PO (09:39)
[2021-01-22] MEDS: ENOXAPARIN 40 MG/0.4 ML SYRINGE SUBCUT (09:39)
[2021-01-22] MEDS: FUROSEMIDE 20 MG TABLET 40 MG PO (09:39)
[2021-01-22] MEDS: dilTIAZem CD 180 MG CAP 360 MG PO (09:39)
[2021-01-22] MEDS: DOCUSATE 100 MG CAPSULE PO (09:39)
[2021-01-22] MEDS: CLOPIDOGREL 75 MG TABLET PO (09:39)
[2021-01-22] MEDS: SODIUM CHLORIDE 0.9% FLUSH 10 ML IV (09:40)
[2021-01-22] MEDS: PANTOPRAZOLE 40 MG TABLET PO (09:40)
[2021-01-22] MEDS: SENNOSIDES 8.6 MG TABLET PO (09:40)
[2021-01-22] MEDS: METOPROLOL ER 50 MG TABLET 200 MG PO (09:40)
--- NOTE | 2021-01-22 09:45 | PC.NURSE ---
Addendum entered by Uma Chisholm R.N. 01/22/21 13:17: Patient's IV D/C'd, tele removed for discharge. Patient tolerated. Patient and daughter Medina given discharge instructions regarding follow up with Dr. Leone, s/s of worsening condition, newly prescribed medication Plavix and Home Health. Patient and daughter verbalized understanding. Patient discharged via wheelchair, accompanied by aide. Items retrieved from safe and given back to patient. Addendum entered by Uma Chisholm R.N. 01/22/21 13:16: Patient tachy 110's-120's [id number], made aware. Original Note: Patient resting in bed. Denies pain. Alert to name, birthdate and year. Unable to recall month or date. Unable to recall where he was or what brought him in, stated my daughter did. Patient denies chest pain, denies SOB, c/o numbness in bilateral lower extremities, states this is WNL for him and decreases when legs are dangled. Cap refill >2 sec. Pulses irregularly irregular, equal bilaterally, tele on. Strength equal bilaterally. SCD's on. Patient on RA, lungs CTA. Chair alarm on.
--- NOTE | 2021-01-22 10:09 | PM.DS.1 ---
History of Present Illness History of Present Illness Date Patient Seen: 01/22/21 Time Patient Seen: 10:09 Chief complaint: THINKS HAD A STROKE Narrative: As per CHRISTIAN Cruz: Mr. 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 The patient reports that he was sitting in his chair at home when his left arm became numb in length, he was not able to move his arm or hand which lasted for 40 minutes to an hour before resolving spontaneously. At the same time the patient states he developed word-finding difficulties which has been persistent since. The patient woke this morning in his normal state health 0 states not feeling well when he experienced a recurrent episode of left arm numbness and flaccidity prompting his presentation to the ER. He reports no falls or trauma and denies dizziness or ataxia. He denies headaches or visual changes, difficulties with chewing or swallowing. He denies chest pain and denies palpitations though he has a history of atrial fibrillation atrial flutter and has been unable to be anticoagulated due to his gastric AVM. He reports no shortness of breath, cough or wheezing. Denies epigastric or abdominal pain, nausea vomiting, changes in bowel or bladder habits. He does state that when he sitting in chair for prolonged time both legs ago cold and numb. Upon arrival the ER the patient has temperature 97.9?, heart rate of 69, blood pressure 121/60, respiratory rate of 22 saturating 98% on room air. A CT of the head is obtained which finds no acute intracranial processes, age-related chronic microvascular ischemic changes. Twelve lead EKG reveals atrial flutter predominant 4 1 conduction with a ventricular rate of 67. Incomplete right bundle branch block and anterior Q-waves. On laboratory analysis he has white count of 10.2, hemoglobin of 14.6, hematocrit 43.6 and platelets 208. His coagulation studies within normal limits. His chemistry finds a potassium of 4.0, BUN of 14 and creatinine 094. His nonfasting glucose is 121. His LFTs are within normal limits. His COVID-19 screening is negative. No definitive intervention was undertaken in the emergency department. Ordered a stat CT angio of the head neck S patient cannot have an MRI related to his aortic valve placement. The patient is admitted to the hospitalist service for further workup and evaluation of TIA. Discharge Providers Provider Date of admission: 01/21/21 21:14 Discharge Date: 01/22/21 Primary care physician: Koby Leone MD Consults: 01/21/21 22:20 Consult to Occupational Therapy Evaluate & Treat Comment: TIA, left-sided weakness Physician Instructions: Evaluate and treat Consult to Physical Therapy Evaluate & Treat Comment: TIA, left-sided weakness Physician Instructions: Evaluate and Treat 01/22/21 08:23 Consult to Speech Therapy Evaluate & Treat Comment: expressive aphasia, mild Physician Instructions: Evaluate and treat Discharge provider: Liang Carrillo DO Summary Hospital Course Discharge Diagnosis: 1. Acute CVA, present on admission, active. 2. Chronic atrial flutter with controlled rate, present on admission, active 3. Essential hypertension, chronic, stable. 4. Hyperlipidemia, chronic, stable 5. COPD with restrictive lung disease, chronic, stable. Hospital Course: This is an 85-year-old male patient with a past medical history significant for atrial fibrillation, atrial flutter, aortic stenosis (s/p AVR), COPD with restrictive lung disease, gastric AVM with history of GI bleed, hypertension, hyperlipidemia and rheumatoid arthritis who presented to the ER with recurrent left arm numbness and flaccidity that has resolved but persistent mild expressive aphasia. He had minimal deficits with word-finding. No evidence of acute infarct was found on CT imaging. Given his history of valve replacement he cannot have an MRI. These incidents are suspected in the setting of atrial flutter, which is known, however the patient is unable to take full anticoagulation due to a prior history of a gastric AVM. Plavix was added for risk reduction over the next 21 days, given his CT angiogram did show some small vessel disease. No other medication changes were necessary, and his blood pressure was controlled on his usual home medications. Exam Vital Signs (past 8 hours): - 01/22/21 05:00 01/22/21 07:15 01/22/21 09:39 Temperature 97.0 F L 96.6 F L Pulse Rate 77 70 71 Respiratory Rate 16 14 Blood Pressure 137/78 128/67 128/67 Pulse Oximetry 98 96 Oxygen Delivery Method Room Air Oxygen Flow Rate 0 Narrative Exam Narrative: GENERAL APPEARANCE: well developed, well nourished, in no acute distress. HEENT: Symmetrical facies, no ptosis, PERRLA, conjunctiva clear, sclera is anicteric, EOMs intact without nystagmus, no sinus tenderness to percussion, no rhinorrhea, edentulous with upper and lower dentures, mucous membranes are moist and pink. NECK/THYROID: neck supple, no JVD, no carotid bruit, no thyromegaly, trachea midline. LYMPH NODES: no cervical or supraclavicular lymphadenopathy. SKIN: [place], warm and dry, no visible lesions, rashes, ulcerations or petechiae. HEART: Irregularly irregular rhythm, S1-S2, 1+ systolic murmur with click, no rubs or gallops, 2+ dorsalis pedis pulses,, no peripheral edema LUNGS: clear to auscultation bilaterally, no coarseness crackles or wheezing, no cough present CHEST: Symmetrical movement, no accessory muscle use, good tidal volume no pain on AP and lateral compression.. ABDOMEN: Soft, no distention, no abdominal tenderness, no guarding or peritoneal signs, no organomegaly, no flank or suprapubic tenderness, active bowel tones. BACK: Normal curvature, nontender to palpation. EXTREMITIES: moves all extremities, strength is 5/5 and symmetrical, no deformities or joint effusions. NEUROLOGIC: AAO x 3, cranial nerves II-XII grossly intact, no lateralizing symptoms, no ataxia, sensation intact to light touch, hearing grossly normal to speech. PSYCH: Good eye contact, cooperative, stable behavior Objective Labs Result Diagrams: 01/22/21 06:40 01/22/21 06:40 Labs: Laboratory Results - last 24 hr 01/21/21 01/21/21 01/21/21 17:22 17:22 17:22 WBC 10.2 RBC 4.77 Hgb 14.6 Hct 43.6 MCV 91.5 MCH 30.5 MCHC 33.4 RDW 13.0 Plt Count 208 Neut % (Auto) 74.1 Lymph % (Auto) 15.3 L [place] % (Auto) 9.1 Eos % (Auto) 0.8 L Baso % (Auto) 0.7 Neut # (Auto) 7600 H Lymph # (Auto) 1600 [place] # (Auto) 900 Eos # (Auto) 100 Baso # (Auto) 100 PT 12.2 INR 1.1 APTT 34 Sodium 138 Potassium 4.0 Chloride 98 Carbon Dioxide 31 BUN 14 Creatinine 0.94 Estimated GFR > 60.0 BUN/Creatinine Ratio 14.9 Glucose 121 H Hemoglobin A1c Calcium 9.3 Magnesium Total Bilirubin 0.3 AST 24 ALT 17 Alkaline Phosphatase 74 Troponin I NT-Pro-B Natriuret Pep Total Protein 7.6 Albumin 4.7 Globulin 2.9 Albumin/Globulin Ratio 1.6 Triglycerides Cholesterol LDL Cholesterol, Calc HDL Cholesterol Lipase 202 SARS-CoV-2 (PCR) 01/21/21 01/21/21 01/21/21 17:22 17:22 17:22 WBC RBC Hgb Hct MCV MCH MCHC RDW Plt Count Neut % (Auto) Lymph % (Auto) [place] % (Auto) Eos % (Auto) Baso % (Auto) Neut # (Auto) Lymph # (Auto) [place] # (Auto) Eos # (Auto) Baso # (Auto) PT INR APTT Sodium Potassium Chloride Carbon Dioxide BUN Creatinine Estimated GFR BUN/Creatinine Ratio Glucose Hemoglobin A1c 5.6 Calcium Magnesium 1.9 Total Bilirubin AST ALT Alkaline Phosphatase Troponin I NT-Pro-B Natriuret Pep 1120 H Total Protein Albumin Globulin Albumin/Globulin Ratio Triglycerides Cholesterol LDL Cholesterol, Calc HDL Cholesterol Lipase SARS-CoV-2 (PCR) 01/21/21 01/21/21 01/22/21 17:22 20:20 06:40 WBC 8.3 RBC 4.62 Hgb 14.0 Hct 42.1 MCV 91.2 MCH 30.3 MCHC 33.2 RDW 13.5 Plt Count 181 Neut % (Auto) 79.2 H Lymph % (Auto) 10.6 L [place] % (Auto) 8.3 Eos % (Auto) 1.2 L Baso % (Auto) 0.7 Neut # (Auto) 6500 Lymph # (Auto) 900 L [place] # (Auto) 700 Eos # (Auto) 100 Baso # (Auto) 100 PT INR APTT Sodium Potassium Chloride Carbon Dioxide BUN Creatinine Estimated GFR BUN/Creatinine Ratio Glucose Hemoglobin A1c Calcium Magnesium Total Bilirubin AST ALT Alkaline Phosphatase Troponin I < 0.012 NT-Pro-B Natriuret Pep Total Protein Albumin Globulin Albumin/Globulin Ratio Triglycerides Cholesterol LDL Cholesterol, Calc HDL Cholesterol Lipase SARS-CoV-2 (PCR) Negative 01/22/21 06:40 WBC RBC Hgb Hct MCV MCH MCHC RDW Plt Count Neut % (Auto) Lymph % (Auto) [place] % (Auto) Eos % (Auto) Baso % (Auto) Neut # (Auto) Lymph # (Auto) [place] # (Auto) Eos # (Auto) Baso # (Auto) PT INR APTT Sodium 137 Potassium 4.5 Chloride 101 Carbon Dioxide 32 BUN 12 Creatinine 0.76 Estimated GFR > 60.0 BUN/Creatinine Ratio 15.8 Glucose 114 H Hemoglobin A1c Calcium 9.2 Magnesium Total Bilirubin AST ALT Alkaline Phosphatase Troponin I NT-Pro-B Natriuret Pep Total Protein Albumin Globulin Albumin/Globulin Ratio Triglycerides 147 Cholesterol 115 L LDL Cholesterol, Calc 60 HDL Cholesterol 26 L Lipase SARS-CoV-2 (PCR) [facility] Medical History Acquired arteriovenous malformation of stomach Aortic valvular stenosis Atrial fibrillation Cholelithiasis Chronic obstructive pulmonary disease Fatigue Gallstone pancreatitis Generalized anxiety disorder History of gastrointestinal hemorrhage History of tobacco abuse Hyperlipidemia Hypertension Restrictive lung disease Rheumatoid arthritis Surgical History H/O sinus surgery History of aortic valve replacement History of colonoscopy History of esophagogastroduodenoscopy (EGD) History of sinus surgery History of tonsillectomy History of tricuspid valve annuloplasty Status post mitral valve annuloplasty Family History Father Heart disease Hypertension Mother Heart disease Sister Heart disease Cancer Social History household members: none Smoking Status: Former smoker Tobacco: How many years used: 60 alcohol intake: former substance use type: does not use Discharge Plan Discharge Plan Patient Disposition: Home Provider Discharge Comment: You were admitted to the hospital with symptoms of a stroke. Many of these resolved. If you continue to have difficulties with speech, outpatient speech therapy would be appropriate. You are being started on a new medication for 21 days only to reduce risk of stroke, however given prior history of bleeding unable to start full anticoagulation. Discharge orders & Medications Prescriptions: New clopidogrel 75 mg tablet 75 mg PO DAILY 21 Days Qty: 21 RF: 0 Continued atorvastatin [Lipitor] 20 MG tablet 20 mg PO BEDTIME Qty: 0 RF: 0 lorazepam 1 MG tablet 1 mg PO DAILY PRN (Reason: Anxiety) Qty: 0 RF: 0 ascorbic acid (vitamin C) [Vitamin C] 500 mg Tablet 500 mg PO QID RF: 0 diltiazem HCl 180 MG capsule,extended release 24hr 360 mg PO DAILY RF: 0 metoprolol succinate [Toprol XL] 100 MG tablet extended release 24 hr 200 mg PO QAM RF: 0 cyanocobalamin (vitamin B-12) 100 mcg Tablet 200 mcg PO BID RF: 0 sennosides-docusate sodium [Senna-S] 8.6-50 mg Tablet 1 tab PO DAILY PRN (Reason: Constipation) RF: 0 metoprolol succinate 100 mg tablet extended release 24 hr 100 mg PO QPM RF: 0 acetaminophen 500 mg Tablet 500 mg PO Q6H PRN (Reason: Fever Or Pain) RF: 0 pantoprazole 40 mg tablet,delayed release (DR/EC) 40 mg PO BID RF: 0 ferrous sulfate 325 mg (65 mg iron) tablet 325 mg PO DAILY RF: 0 lisinopril 2.5 mg tablet 2.5 mg PO DAILY RF: 0 coenzyme Q10 [CoQ-10] 100 mg Capsule 300 mg PO DAILY RF: 0 cholecalciferol (vitamin D3) [Vitamin D3] 2,000 unit Capsule 2,000 unit PO BID RF: 0 Centrum Silver Men 300-600-300 mcg Tablet 1 tab PO DAILY RF: 0 furosemide [Lasix] 20 MG tablet 20 mg PO DAILY RF: 0 diphenhydramine-acetaminophen [Tylenol PM Extra Strength] 25-500 mg Tablet 2 tab PO BEDTIME PRN (Reason: Sleep) RF: 0 polyethylene glycol 3350 17 gram Powder In Packet 17 gm PO DAILY PRN (Reason: Constipation) Qty: 1 RF: 0 Follow up/Referrals: Koby Leone MD [Primary Care Provider] - Diet/Activity/Treatments Diet: Diet as Tolerated Activity: As tolerated Discharge Data Primary Care Provider: Koby Leone V Attending Provider: Liang Almaraz
--- NOTE | 2021-01-22 10:55 | OT.IP.EVAL ---
Past Medical History (Last Reviewed 01/22/21 @ 00:15 by CHRISTIAN Cruz) Acquired arteriovenous malformation of stomach Aortic valvular stenosis Atrial fibrillation Cholelithiasis Chronic obstructive pulmonary disease Fatigue Gallstone pancreatitis Generalized anxiety disorder History of gastrointestinal hemorrhage History of tobacco abuse Hyperlipidemia Hypertension Restrictive lung disease Rheumatoid arthritis Surgical History (Last Reviewed 01/22/21 @ 00:15 by CHRISTIAN Cruz) H/O sinus surgery History of aortic valve replacement History of colonoscopy History of esophagogastroduodenoscopy (EGD) History of sinus surgery History of tonsillectomy History of tricuspid valve annuloplasty Status post mitral valve annuloplasty Occupational Therapy Inpatient Evaluation/Re-Eval M1 PT/OT-IP Prior Functional Status Start: 01/22/21 12:41 Freq: NEEDED Status: Active Protocol: Document 01/22/21 12:42 [facility] (Rec: 01/22/21 12:57 [facility] [id number]) Medical Review Prior Functional Status Medical History Reviewed Yes Communication able to make needs known Mobility and Gait pt stated that he is independent with all mobilities and ambulation without AD Activities of Daily Living and IADL's Pt states completely independent with all ADl, IADL , and drives. Social History Household Members none Living Arrangements Apartment/Condo Number of Floors (Floors) One Floor Number of Stairs To Enter/Railing? no steps to enter Home Environment Standard Height Toilet,Walk in Shower,Built-In Shower Seat Home Equipment Straight Cane,Hand Held Shower ,Grab Bars In Shower Additional Social History Comment daughters checks on pt daily and lives close by. M2 OT-IP Current Condition Start: 01/22/21 12:41 Freq: Status: Active Protocol: Document 01/22/21 12:42 [facility] (Rec: 01/22/21 12:57 [facility] [id number]) Occupational Therapy Current Condition Current Condition Evaluation Date 01/22/21 Treatment Diagnosis TIA, A-trial flutter, decreased short term memory Diagnosis Onset Date 01/21/21 M3 OT- IP Subjective and Pain Start: 01/22/21 12:41 Freq: Status: Active Protocol: Document 01/22/21 12:42 [facility] (Rec: 01/22/21 12:57 [facility] [id number]) OT- Subjective Occupational Therapy Visit Type Type Initial Evaluation Visit Start Time 10:13 Visit Stop Time 10:55 Total Visit Minutes 42 Occupational Therapy Visit Comments Patient Comments Pt agreed to do OT eval. Patient/Caregiver Goals TO go home. OT Pain Assessment Pain When Pain Assessed At Rest Pain Present Pain Present Denied Pain M4 OT- IP ADL's Start: 01/22/21 12:41 Freq: Status: Active Protocol: Document 01/22/21 12:42 [facility] (Rec: 01/22/21 12:57 [facility] [id number]) OT [id number] Comments OT Self-Feeding Comments NOt at meal time. OT ADL-Grooming Comments OT Grooming Comments Pt states did prior. OT ADL-Dressing General Eval Lower Body Dressing Ability Independent Comments OT Dressing Comments While seated. OT ADL-Toileting Comments OT Toileting Comments Pt not having to use the bathroom. OT ADL-Bathing Comments OT Bathing Comments Pt not wanting to shower. M5 OT- IP IADL's Start: 01/22/21 12:41 Freq: Status: Active Protocol: Document 01/22/21 12:42 [facility] (Rec: 01/22/21 12:57 [facility] [id number]) OT-Instrumental Activities of Daily Living Home Safety Awareness Awareness of Need for Assistance at Home Decreased Awareness Ability to Problem Solve Emergency Unable to Problem Solve Situations Home Safety Comments Pt unaware to remember to call 911 in case of emergency and states would open the front door for a stranger. Medication Management Medication Management Comments Due to pt's decreased safety awareness, short term memory, and functional cognition, would be best for someone to assist pt at all times. Money Management Money Management Comments Due to pt's decreased safety awareness and functional cognition, would be best for someone to assist pt at all times. Meal Preparation Meal Preparation Comments Due to pt's decreased safety awareness and functional cognition, would be best for someone to assist pt at all times. Sales And Marketing Engineer Sales And Marketing Engineer Comments Due to pt's decreased safety awareness and functional cognition, would be best for someone to assist pt at all times. Driving Driving Concerns Identified Regarding Safety M6 OT- IP Functional Cognition Start: 01/22/21 12:41 Freq: Status: Active Protocol: Document 01/22/21 12:42 [facility] (Rec: 01/22/21 12:57 [facility] [id number]) Cognitive Factors Limiting Selfcare Function Cognitive Ability Level of Alertness Alert Patient Orientation Name,Place,Situation Attention Span Ability Capable of Focused Attention, Capable of Sustained Attention Ability to Follow Commands Able to Follow One Step Commands Memory Description Short Term Impaired,Working Impaired Problem Solving Ability Unable to Identify Errors, Needs Assist to Identify Solutions Executive Function Ability Unable to Switch Focus,Unable to Filter Distractions,Unable to Make Plans,Unable to Organize Plans,Unable to Remember Details Cognitive Comments Cognitive Assessment Comments Pt unable to complete [place] Making Part B and needing MAX vc and only completed 60% on the task in 240 seconds. Pt's score implies pt has severe impairments for visual attention, task switching, mental flexibility, executive functioning, and speed of processing and strongly suggested to pt not to drive. Pt has poor insight and states , I will be fine, I had been driving for years. OT- Vision and Hearing OT- Hearing Assessment OT- Hearing Assessment WFL OT- Vision Assessment Visual Acuity Glasses For Reading M7 OT- IP Mobility and Balance Start: 01/22/21 12:41 Freq: Status: Active Protocol: Document 01/22/21 12:42 [facility] (Rec: 01/22/21 12:57 [facility] [id number]) OT- Bed Mobility Assessment Sit to Supine Sit to Supine Assist Independent OT-Transfer Assessment Sit to and From Stand Sit to and from Stand Independent Transfers Transfer Ability Standby Assistance Technique Transfer Destination Bed,Chair Transfer Technique Stand Step Pivot Devices Transfer Assistive Devices None Comments Mobility Comments Distant SBA for pt to get back into the bed from the recliner for ECHO. OT- Balance Assessment Sitting Balance and Reactions Static Sitting Balance Ability Normal Dynamic Sitting Balance Ability Normal M8 OT- IP Objective Assessments Start: 01/22/21 12:41 Freq: Status: Active Protocol: Document 01/22/21 12:42 [facility] (Rec: 01/22/21 12:57 [facility] [id number]) OT Gross Range of Motion Upper Extremity Range of Motion Assessment Within Functional Limits OT Strength Upper Extremity Strength Assessment Within Functional Limits OT- Coordination Assessment Upper Extremity Finger to Nose Test Within Functional Limits Comments Coordination Comments Intact finger to thumb for bilateral hands. Left hand scored at 50% for 9 hole peg and right hand 90%. OT-Muscle Tone Assessment Muscle Tone WNL Yes OT Sensation Assessment Comments Summary Comments Intact for sensation, proprioception and kinesthesia . M9 OT- IP Assessment and Plan Start: 01/22/21 12:41 Freq: Status: Active Protocol: Document 01/22/21 12:42 [facility] (Rec: 03/25/21 12:57 [facility] [id number]) OT Summary Assessment and Plan Potential Rehabilitation Potential Good Analytic Complexity at Evaluation Low Summary OT Impairments Functional Cognition, Functional Mobility,Bathing Progress Towards Goals Progressing Toward Goals,Slow Progress due to Cognition Assessment Summary Pt low complexity and here due to TIA and atrial flutter. Pt 's main barrier are decreased short memory and functional cognition and at this time suggest that pt has 24/7 available assist and that pt not drive. Able to speak to pt's daughter on the phone and is well aware of his memory deficits. Goals Grooming Goal Independent Dressing Goal Independent Toileting Goal Independent Bathing Goal Independent Toilet Transfer Goal Independent Shower Transfer Goal Independent Days to Meet Goals 3 Frequency of Treatment Frequency Of Treatment Once a Day Treatment Plan OT Treatment Plan ADL Training,Functional Cognition Training,Functional Mobility,Patient/Family Education,Discharge Planning Other Treatment Recommendations and Next GO over memory strategies. Treatment Focus Discharge Recommendations OT Discharge Recommendations Home with 24/7 Assist Available Home Equipment Needs shower chair Transportation Needs at Discharge Private Vehicle
--- NOTE | 2021-01-22 10:57 | ST.IPSLE ---
Visit Care Team Role Provider Type Koby Leone MD Primary Care Provider Physician Specialty: Internal Medicine Address: [address] [place] [address], [id number] Email: [email or web address] Bladimir Aviles DO Emergency Provider Physician Referring Provider Specialty: Emergency Medicine Address: [address] [place] [address], [id number] Email: [email or web address] Admit Provider Physician Attending Provider Specialty: Internal Medicine Address: [address] [place] [address], [address] Email: [email or web address] Past Medical History (Last Reviewed 01/22/21 @ 00:15 by CHRISTIAN Cruz) Acquired arteriovenous malformation of stomach (Medical) Aortic valvular stenosis (Medical) Atrial fibrillation (Medical) Cholelithiasis (Medical) Chronic obstructive pulmonary disease (Medical) Fatigue (Medical) Gallstone pancreatitis (Medical) Generalized anxiety disorder (Medical) History of gastrointestinal hemorrhage (Medical) History of tobacco abuse (Social Hx) Hyperlipidemia (Medical) Hypertension (Medical) Restrictive lung disease (Medical) PFT at 05/24/16 Rheumatoid arthritis (Medical) Speech-Language Pathology Speech/Language Eval EAP SPECIALIST Adult Cognitive Linguistic Eval Start: 01/22/21 09:57 Freq: Status: Active Protocol: Document 01/22/21 09:59 [facility] (Rec: 01/22/21 10:03 [facility] [id number]) Adult Cognitive Linguistic Evaluation Session Time Visit Start Time 09:05 Visit Stop Time 09:35 Total Visit Minutes [address] Carrillo Reason for Referral Mild expressive aphasia Setting Assessment Location Acute Care Visit Type Note Type Initial evaluation Next Note Type Next Note Type Treatment Note Patient Information Identification Type Name Medical History Patient admitted for TIA. 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 Therapist needed to speak loudly to be understood. Patient benefits from lip reading. Vision Vision Status Impaired Comments Wears bifocals Previous Therapy Previous Speech-Language Therapy No Subjective Patient Report Patient was awake and alert lying in his bed watching tv. Informal Assessment Receptive Language Normal Yes Expressive Language Normal No: word finding Expressive Language Impairment(s) Confrontation naming,Divergent naming,Expression of complex thoughts/ideas Pragmatic Language Normal Yes Speech Normal Yes Cognition Normal No Cognitive Impairment(s) Orientation,Short-term memory, Reasoning Formal Assessment Standardized Test/Screener Type Quick Aphasia Battery (QAB) Administration Complete Results Patient scored a 6/10 on word finding and an overall score of 8.8/10 indicating mild aphasia characterized by word- finding pauses, word-finding failures and abandoned utterances. Utterance length, speech rate and grammar/syntax were all within normal limits . His speech was intelligible and without evidence of motor speech impairments. Patient scored 9/20 on the SLUMs indicating significantly impaired cognition, with notable difficulty in the areas of orientation, short term memory and divergent naming. He scored a 0 on the following questions: day of the week, short term recall of 5 objects, reverse digit span of 3 and 4 number and short term paragraph recall. Findings/Results Language Function Mildly impaired Cognitive Function Moderately-severely impaired Findings Patient has moderate cognitive linguistic impairments with limited insight into deficits. He admitted to some word finding impairment and occasional difficulty with memory, but states he has no difficulty managing finances or medication at home where he lives alone. Patient drives and does his own grocery shopping. Given cognitive impairments, patient will need assistance at home for safety . He would benefit from home health speech therapy to assess his safety at home and target cognitive linguistic skills. Cognitive Communication Deficits Self-awareness of Cognitive- Limited awareness (minimal Communication Deficits appreciation without specificity) Concomitant Factors Concomitant Factors Hearing loss Impact on Functioning Activity Limits/Particip.Rest. Mild: Interpersonal Interactions Mod: General Tasks and Demands Household Tasks Safety Risks Mod: Being Left Alone at Home Reacting to Emergency Managing Medication Traveling Alone in Community Prognosis Prognosis Fair Based on Duration of symptoms/severity, Time since onset Plan of Care Speech-Language Treatment Yes Patient/Caregiver Education Described results of evaluation,Patient expressed understanding of evaluation, Patient requires further education/training Discharge Recommendations Outpatient therapy
[2021-01-22 11:00] VITALS: BP 124/79; PULSE 115; RESP 20; TEMP 36.6; O2SAT 96
--- NOTE | 2021-01-22 11:09 | CM.IDA ---
Initial DCP Assessment Note Pt is an 85 yo male, resident of [place], being discharged today, dx w/ acute CVA w/resolving symptoms, h/o TIAs, afib and heart valve replacement. PCP: Koby Leone Payer: [employer] MCR/ [employer] Reviewed DCP w/JEANETTE Eaton who spoke to dtr Medina dtr Alyssa working a 24 hr shift in [place] today. Therapies have cleared patient for a DC home, however, OT recommending increased care giving and observation d/t low SLUMS score and signs of dementia Placed call to Medina P# [phone] who is a substitute high court justice, teaching here in [place] today. Medina explains that patient is still living home alone. She and her sister have discussed how to increase care for patient (?) because memory loss has increased Suggested calling [facility] first to discuss available resources, in the meantime, suggested referral? Patient and dtr were agreeable to this. F2F completed and signed by Dr Carrillo and referral sent by DANILO Dumont to [facility] based on calendar rotation (no patient preference). Requested RN/PT/OT Plan: DC home today w/family to transport, via private auto, [facility] RN/PT/OT (start of care unknown at this time), discussed terminal gauger care planning w/dtr Medina, Senior Resource Guide provided JEANETTE Eaton updated. DORON Pond
--- NOTE | 2021-01-22 11:13 | CM.DPNOTE ---
Faxed Referral packet to [facility] per Ivy. Will fax DC summary and PT notes when completed. Will follow up with a phone call later when they can see patient. Fax confirmation received. Julia Cui CM Asst.
== END 2021-01-22 13:19 | disposition home or self-care (01) ==
LOC: ED 21:05 → AC 21:15
PROVIDERS: Admitting Provider Nurse Practitioner Adult Health; Emergency Provider Emergency Medicine; PCP Internal Medicine; Referring Provider Emergency Medicine; Visit Provider Nurse Practitioner Adult Health
DX: I63.9 Cerebral infarction, unspecified (principal); R47.01 Aphasia; R29.818 Other symptoms and signs involving the nervous system; I48.91 Unspecified atrial fibrillation; J44.9 Chronic obstructive pulmonary disease, unspecified; Q27.33 Arteriovenous malformation of digestive system vessel; I10 Essential (primary) hypertension; E78.5 Hyperlipidemia, unspecified; M06.9 Rheumatoid arthritis, unspecified; Z20.822 Contact with and (suspected) exposure to COVID-19
CPT/HCPCS: 36415; 70450; 70496; 70498; 80048; 80053; 80061; 81003; 83036; 83690; 83735; 83880; 84484; 85025; 85610; 85730; 87635; 92523; 93005; 93010; 93306; 94762; 96372; 97161; 97165; 99284; G0378; J1650; Q9967

== ENCOUNTER 2021-01-27 10:54 | Observation (INO) | payer OTHER, SELFPAY ==
[2021-01-21 21:32] VITALS: BMI 23.3
[2021-01-27] VITALS (18 sets, daily range): BP systolic 106–151; BP diastolic 56–67; PULSE 66–92; RESP 18–25; TEMP 36.5–36.8; O2SAT 95–98; BMI 25.4
--- NOTE | 2021-01-27 11:02 | DI.CT.S_ITS ---
PROCEDURE: CT ANGIO HEAD AND NECK INDICATIONS: left leg weakness TECHNIQUE: After the administration of intravenous contrast, 1 mm thick sections acquired from the aortic arch through the [place]. Post-contrast 4.5 mm thick sections then re-acquired from the foramen magnum to the vertex. 3-dimensional igbcfvv-razkpaiiw-prtqvbujio (MIP) and/or volume rendering reformats were acquired of the central intracranial vasculature and neck separately. COMPARISON: [facility], CT, CT ANGIO HEAD AND NECK, 01/21/2021, 20:42. FINDINGS: Image quality: Excellent. BRAIN: CSF spaces: Ventricles are normal in size and shape. Basal cisterns are patent. No extra-axial fluid collections. Brain: No midline shift. No intracranial bleeds or masses. Diez-white matter interface appears intact. Skull and face: Calvarium and facial bones appear intact, without suspicious lesions. Orbits appear normal. Sinuses: Sinuses and mastoids are clear. HEAD CT ANGIOGRAPHY: Anterior circulation: Intracranial internal carotid arteries are normal in size and flow. Mild atherosclerotic stenosis involves the bilateral cavernous internal carotid arteries. The flow within the paired anterior cerebral arteries is normal and symmetric. The flow within the middle cerebral arteries is normal and symmetric. The anterior communicating artery is seen. No aneurysms are seen. Posterior circulation: Visualized portions of the vertebral arteries demonstrate normal caliber, and join to form a normal appearing basilar artery. Flow within the posterior cerebral arteries is normal and symmetric. No aneurysms are seen. NECK CT ANGIOGRAPHY: Carotid system: The great vessels demonstrate a conventional anatomy as they arise from the aortic arch. The origins of the common carotid arteries appear patent. The common carotid arteries demonstrate normal caliber and courses. The bifurcation regions are both widely patent. There is roughly 30% right and 20% left calcific origin stenosis involving the internal carotid arteries bilaterally. Posterior circulation: The origins of the vertebral arteries both appear widely patent. The more superior extracranial portions of both vertebral arteries also demonstrate normal courses and calibers. They join to form a normal appearing basilar artery. Soft tissues: Bilateral thyroid nodules are present, largest of which is in the left lobe posteriorly measuring 12 mm. Visualized neck soft tissues otherwise demonstrate no suspicious abnormalities. Mild biapical emphysema. Bones: No suspicious bony lesions. Visualized cervical spine appears normally aligned. IMPRESSION: 1. No acute process involving the arterial tree of the head neck. No significant change compared to 01/21/2021. 2. Mild bilateral internal carotid artery stenosis. 3. Bilateral thyroid nodules, which could be further assessed with nonemergent outpatient follow-up ultrasound examination, if clinically indicated. 4. Emphysema. Any quantitative measurements of stenosis were performed using NASCET criteria. Dictated by: Fly Knight M.D. on 01/27/2021 at 11:40 Approved by: Fly Knight M.D. on 01/27/2021 at 11:44
--- NOTE | 2021-01-27 11:02 | DI.CT.S_ITS ---
PROCEDURE: CT HEAD/BRAIN WO CON INDICATIONS: left leg weakness TECHNIQUE: Noncontrast 4.5 mm thick angled axial sections acquired from the foramen magnum to the vertex, with coronal and sagittal reformats. For radiation dose reduction, the following was used: automated exposure control, adjustment of mA and/or kV according to patient size. COMPARISON: [facility], CT, CT HEAD/BRAIN WO CON, 01/21/2021, 18:09. FINDINGS: Image quality: Excellent. CSF spaces: Basal cisterns are patent. No extra-axial fluid collections. The ventricles are symmetric in size and shape. Brain: No intracranial bleeds or masses. There is moderate cerebral volume loss for age, with resultant ventricular and sulcal prominence. There are moderate periventricular and deep white matter chronic small vessel ischemic changes. There is intracranial internal carotid artery atherosclerosis. Skull and face: Calvarium and visualized facial bones appear intact, without suspicious lesions. Sinuses: Postsurgical changes in right maxillary sinus. Visualized sinuses and mastoids are clear. IMPRESSION: 1. No acute intracranial abnormalities. 2. Cerebral volume loss and chronic microvascular ischemic changes. Dictated by: Emigdio Tang M.D. on 01/27/2021 at 10:31 Approved by: Emigdio Tang M.D. on 01/27/2021 at 10:33
[2021-01-27 11:15] LABS: Add Manual Diff / Slide Review NO; Basophils Absolute Auto 100 /uL (0-100); Basophils Percent Auto 0.8 % (0-2); Eosinophils Absolute Auto 0 /uL (0-450); Eosinophils Percent Auto 0.5 % (2-4); Hemoglobin 13.6 g/dL (13.5-17.5); Lymphocytes Absolute Auto 1000 /uL (1100-4500); Lymphocytes Percent Auto 13.5 % (25-40); Mean Corpuscular HGB Conc 33.3 % (30-36); Mean Corpuscular Hemoglobin 30.3 PG (26-34); Mean Corpuscular Volume 91.2 fL (80-100); Monocytes Absolute Auto 700 /uL (0-900); Monocytes Percent Auto 9.2 % (3-14); Neutrophils Absolute Auto 5800 /uL (1500-7000); Platelet Count 214 X10^3/uL (150-400); Red Blood Cell Count 4.49 X10^6/uL (4.5-5.9); Red Cell Distribution Width 13.1 % (11.6-14.8); White Blood Cell Count 7.6 X10^3/uL (4.5-11.0)
[2021-01-27 11:17] LABS: INR 1.1 (0.9-1.3)
[2021-01-27 11:19] LABS: PTT Partial Thromboplastin Tim 32 SECONDS (26.4-36.2)
[2021-01-27 11:24] LABS: Alanine Aminotransferase 14 IU/L (<50); Albumin 4.4 g/dL (3.5-5.0); Albumin Globulin Ratio 1.6 (1.0-2.8); Alkaline Phosphatase 69 U/L (38-126); Aspartate Aminotransferase 23 IU/L (17-59); BUN Creatinine Ratio 17.7 (6-22); Bilirubin Total 0.4 mg/dL (0.2-1.3); Blood Urea Nitrogen 14 mg/dL (9-20); Calcium 9.2 mg/dL (8.4-10.2); Carbon Dioxide 32 mmol/L (22-32); Chloride 99 mmol/L (98-107); Creatine Kinase 24 U/L (55-170); Estimated Glomerular Filt Rate > 60.0 mL/min (>60); Globulin 2.8 g/dL (1.7-4.1); Glucose 124 mg/dL (80-110); HEMOLYSIS < 15 (0-50); Potassium 4.3 mmol/L (3.4-5.1); Sodium 138 mmol/L (137-145); Total Protein 7.2 g/dL (6.3-8.2)
[2021-01-27 11:35] LABS: Troponin I < 0.012 ng/mL (0.01-0.034)
--- NOTE | 2021-01-27 11:54 | ED_ITS ---
HPI - Neuro Symptoms/Deficit General Chief Complaint: Weakness Stated Complaint: weakness Time Seen by Provider: 01/27/21 11:02 Source: EMS Mode of arrival: EMS Limitations: physical limitation History of Present Illness HPI Narrative: Patient is an 85-year-old male with history of atrial flutter, atrial fibrillation, aortic stenosis, COPD, gastric AVM with GI bleed presenting today with left-sided neurologic symptoms. He says he went to bed normal last evening woke up around midnight and noticed that he had some left arm shaking. He talked to his daughter this morning who recommended he go to the emergency department. She was actually admitted for TIA January 21 through the for the same. He actually had 2 episodes both involving the left side at that time. He has history of valve replacement and cannot have an MRI and due to his GI bleeding on able to take full anticoagulation. Plavix was added for risk reduction over the next 21 days. Onset (ago): hour(s) On Anticoagulants: No Related Data Home Medications Medication Instructions Recorded Confirmed atorvastatin [Lipitor] 20 mg PO BEDTIME #0 05/16/17 01/27/21 lorazepam 1 mg PO DAILY PRN #0 11/24/17 01/27/21 ascorbic acid (vitamin C) [Vitamin 500 mg PO QID 05/21/18 01/27/21 C] diltiazem HCl 360 mg PO DAILY 05/21/18 01/27/21 metoprolol succinate [Toprol XL] 200 mg PO QAM 05/21/18 01/27/21 Centrum Silver Men 1 tab PO DAILY 12/01/18 01/27/21 acetaminophen 500 mg PO Q6H PRN 12/01/18 01/27/21 cholecalciferol (vitamin D3) 2,000 unit PO BID 12/01/18 01/27/21 [Vitamin D3] coenzyme Q10 [CoQ-10] 300 mg PO DAILY 12/01/18 01/27/21 cyanocobalamin (vitamin B-12) 100 mcg PO BID 12/01/18 01/27/21 diphenhydramine-acetaminophen 2 tab PO BEDTIME PRN 12/01/18 01/27/21 [Tylenol PM Extra Strength] ferrous sulfate 325 mg PO DAILY 12/01/18 01/27/21 furosemide [Lasix] 20 mg PO QAM 12/01/18 01/27/21 lisinopril 2.5 mg PO DAILY 12/01/18 01/27/21 metoprolol succinate 100 mg PO QPM 12/01/18 01/27/21 pantoprazole 40 mg PO BID 12/01/18 01/27/21 sennosides-docusate sodium 1 tab PO DAILY PRN 12/01/18 01/27/21 [Senna-S] Allergies Allergy/AdvReac Type Severity Reaction Status Date / Time aspirin [ASPIRIN] Allergy Intermediate HIVES, Verified 01/21/21 17:18 EARS RING lactose [LACTOSE] Allergy Unknown Verified 01/21/21 17:18 Review of Systems Review of Systems ROS Unobtainable: All systems reviewed & are unremarkable except as noted in HPI and below Constitutional Constitutional: Denies chills, Denies fever(s), Denies lethargy and Denies weakness Eyes Eyes: Denies change in vision, Denies eye discharge, Denies irritation and Denies loss of vision Cardiovascular Cardiovascular: Denies chest pain, Denies irregular heart rhythm, Denies lightheadedness, Denies palpitations, Denies dyspnea, Denies dyspnea on exertion and Denies orthopnea Respiratory Respiratory: Denies cough, Denies dyspnea, Denies dyspnea on exertion and Denies wheezing Gastrointestinal Gastrointestinal: Denies abdominal pain, Denies change in bowel habits, Denies diarrhea, Denies nausea and Denies vomiting Musculoskeletal Musculoskeletal: Denies back pain, Denies myalgias and Denies muscle weakness Integumentary/Breasts Skin/Breast: Denies pruritus, Denies erythema, Denies rash and Denies wounds Neurologic Neurologic: Reports as per HPI, Denies loss of vision and Denies weakness Endocrine Endocrine: Denies palpitations Hematologic/Lymphatic On Anticoagulants: No Allergic/Immunologic Allergic/Immunologic: Denies wheezing Patient History Medical History (Updated 01/27/21 @ 14:07 by Nicolasa Henry DO) Acquired arteriovenous malformation of stomach Aortic valvular stenosis Atrial fibrillation Cholelithiasis Chronic obstructive pulmonary disease Fatigue Gallstone pancreatitis Generalized anxiety disorder History of gastrointestinal hemorrhage History of tobacco abuse Hyperlipidemia Hypertension Restrictive lung disease Rheumatoid arthritis Surgical History H/O sinus surgery History of aortic valve replacement History of colonoscopy History of esophagogastroduodenoscopy (EGD) History of sinus surgery History of tonsillectomy History of tricuspid valve annuloplasty Status post mitral valve annuloplasty Family History Father Heart disease Hypertension Mother Heart disease Sister Heart disease Cancer Social History household members: none Smoking Status: Former smoker Tobacco: How many years used: 60 alcohol intake: former substance use type: does not use Smoking Status: Former smoker alcohol intake frequency: 0-2 drinks per day Substance Use Type: marijuana Exam Initial Vital Signs Initial Vital Signs: Vital Signs Temperature 98.2 F 01/27/21 10:55 Pulse Rate 92 H 01/27/21 10:55 Respiratory Rate 20 01/27/21 10:55 Blood Pressure 151/67 H 01/27/21 10:55 Pulse Oximetry 98 01/27/21 10:55 GENERAL: Pleasant alert well-appearing 85-year-old male and in no acute distress. HEENT: Head atraumatic,EOMI, pupils reactive, face symmetric, moist mucous membranes CARDIOVASCULAR: Regular rate and rhythm without murmurs, rubs or gallops. RESPIRATORY: Breath sounds equal bilaterally, no wheezes rales or rhonchi. ABDOMEN: Soft, nontender. Normoactive bowel sounds all 4 quadrants. No guarding or rebound. EXTREMITIES: Normal range of motion, no clubbing or edema. Neurovascularly intact NEUROLOGICAL: Alert and oriented x4.Normal gait and speech. Cranial nerves II through XII grossly intact. Good bvblag-sq-larp, good [id number], he is unable to lift his left leg off the gurney but he does try. I am able to lift his left leg and drifts down to the gurney, no dysarthria or aphasia, sensation in tact to soft touch bilaterally, no visual changes, no facial droop SKIN: Warm, dry, no laceration, no petechiae, no rashes or lesions. Scores NIH Stroke Scale Level of Conciousness: Alert, keenly responsive Ask month/age: Answers both questions correctly. Open/close eyes, close hand: Performs both tasks correctly Best gaze horizontal: Normal Visual tan: No visual loss Facial palsy: Normal symetrical movement Left arm drift: No drift for full 10 sec Right arm drift: No drift for full 10 sec Left leg drift: Some effort against gravity, cannot maintain, drifts down to bed Right leg drift: No drift for full 5 sec Limb ataxia: Absent Sensory on face/arms/legs: Normal, no sensory loss Best language: No aphasia, normal Dysarthria: Normal Extinction or inattention: No abnormality Total NIH Stroke scale score: 2 Course Orders Ordered: ED Orders 01/27/21 11:00 Complete Blood Count AUTO DIFF Stat Comprehensive Metabolic Panel Stat Partial Thromboplastin Time Stat Prothrombin Time INR Stat Troponin & CK Cardiac Panel Stat 01/27/21 11:02 CT angio head and neck Stat CT head/brain wo con Stat EKG-12 Lead Stat 01/27/21 13:40 COVID19 - ADMIT ([employer] swab/PCR) Stat Vital Signs Vital signs: Vital Signs - 8 hr 01/27/21 11:44 01/27/21 12:11 01/27/21 12:30 Pulse Rate 69 68 68 Respiratory Rate 18 21 22 Blood Pressure 121/57 L Pulse Oximetry 96 95 96 01/27/21 13:00 01/27/21 13:15 01/27/21 13:30 Pulse Rate 67 68 67 Respiratory Rate 24 22 25 H Blood Pressure 126/60 125/62 114/57 L Pulse Oximetry 96 97 96 01/27/21 13:45 01/27/21 14:00 Pulse Rate 67 67 Respiratory Rate 22 20 Blood Pressure 123/60 118/57 L Pulse Oximetry 96 96 MDM - Neuro Symptoms/Deficit Lab Data Attestation: I reviewed the patient's lab results. Result diagrams: 01/27/21 11:00 01/27/21 11:00 Labs: Lab Results 01/27/21 01/27/21 01/27/21 Range/Units 11:00 11:00 11:00 WBC 7.6 (4.5-11.0) X10^3/uL RBC 4.49 L (4.5-5.9) X10^6/uL Hgb 13.6 (13.5-17.5) g/dL Hct 41.0 (41-53) % MCV 91.2 (80-100) fL MCH 30.3 (26-34) PG MCHC 33.3 (30-36) % RDW 13.1 (11.6-14.8) % Plt Count 214 (150-400) X10^3/uL Neut % (Auto) 76.0 H (50-75) % Lymph % (Auto) 13.5 L (25-40) % Andrew % (Auto) 9.2 (3-14) % Eos % (Auto) 0.5 L (2-4) % Baso % (Auto) 0.8 (0-2) % Neut # (Auto) 5800 (5430-5924) /uL Lymph # (Auto) 1000 L (1755-2982) /uL Andrew # (Auto) 700 (0-900) /uL Eos # (Auto) 0 (0-450) /uL Baso # (Auto) 100 (0-100) /uL PT 12.0 (10.1-12.7) SECONDS INR 1.1 (0.9-1.3) APTT 32 (26.4-36.2) SECONDS Sodium 138 (137-145) mmol/L Potassium 4.3 (3.4-5.1) mmol/L Chloride 99 (98-107) mmol/L Carbon Dioxide 32 (22-32) mmol/L BUN 14 (9-20) mg/dL Creatinine 0.79 (0.66-1.25) mg/dL Estimated GFR > 60.0 (>60) mL/min BUN/Creatinine Ratio 17.7 (6-22) Glucose 124 H (80-110) mg/dL Calcium 9.2 (8.4-10.2) mg/dL Total Bilirubin 0.4 (0.2-1.3) mg/dL AST 23 (17-59) IU/L ALT 14 (<50) IU/L Alkaline Phosphatase 69 (38-126) U/L Total Creatine Kinase 24 L (55-170) U/L CK-MB (CK-2) TNP CK-MB (CK-2) Rel Index TNP Troponin I < 0.012 (0.01-0.034) ng/mL Total Protein 7.2 (6.3-8.2) g/dL Albumin 4.4 (3.5-5.0) g/dL Globulin 2.8 (1.7-4.1) g/dL Albumin/Globulin Ratio 1.6 (1.0-2.8) SARS-CoV-2 (PCR) (Negative) 01/27/21 Range/Units 13:40 WBC (4.5-11.0) X10^3/uL RBC (4.5-5.9) X10^6/uL Hgb (13.5-17.5) g/dL Hct (41-53) % MCV (80-100) fL MCH (26-34) PG MCHC (30-36) % RDW (11.6-14.8) % Plt Count (150-400) X10^3/uL Neut % (Auto) (50-75) % Lymph % (Auto) (25-40) % Andrew % (Auto) (3-14) % Eos % (Auto) (2-4) % Baso % (Auto) (0-2) % Neut # (Auto) (8741-3900) /uL Lymph # (Auto) (6467-5116) /uL Andrew # (Auto) (0-900) /uL Eos # (Auto) (0-450) /uL Baso # (Auto) (0-100) /uL PT (10.1-12.7) SECONDS INR (0.9-1.3) APTT (26.4-36.2) SECONDS Sodium (137-145) mmol/L Potassium (3.4-5.1) mmol/L Chloride (98-107) mmol/L Carbon Dioxide (22-32) mmol/L BUN (9-20) mg/dL Creatinine (0.66-1.25) mg/dL Estimated GFR (>60) mL/min BUN/Creatinine Ratio (6-22) Glucose (80-110) mg/dL Calcium (8.4-10.2) mg/dL Total Bilirubin (0.2-1.3) mg/dL AST (17-59) IU/L ALT (<50) IU/L Alkaline Phosphatase (38-126) U/L Total Creatine Kinase (55-170) U/L CK-MB (CK-2) CK-MB (CK-2) Rel Index Troponin I (0.01-0.034) ng/mL Total Protein (6.3-8.2) g/dL Albumin (3.5-5.0) g/dL Globulin (1.7-4.1) g/dL Albumin/Globulin Ratio (1.0-2.8) SARS-CoV-2 (PCR) Negative (Negative) Urine Dip Bedside Urine Glucose Negative Bedside Urine Bilirubin - Negative Bedside Urine Ketone - Negative Urine Specific [place] 1.015 Bedside Urine Occult Blood - Negative Bedside Urine pH 6 Bedside Urine Protein - Negative Bedside Urine Urobilinogen - Negative Bedside Urine Nitrite - Negative Bedside Urine Leukocytes - Negative Esterase Imaging Data CT scan - head: Radiologist's Impression: PROCEDURE: CT HEAD/BRAIN WO CON INDICATIONS: left leg weakness TECHNIQUE: Noncontrast 4.5 mm thick angled axial sections acquired from the foramen magnum to the vertex, with coronal and sagittal reformats. For radiation dose reduction, the following was used: automated exposure control, adjustment of mA and/or kV according to patient size. COMPARISON: [facility], CT, CT HEAD/BRAIN WO CON, 01/21/2021, 18:09. FINDINGS: Image quality: Excellent. CSF spaces: Basal cisterns are patent. No extra-axial fluid collections. The ventricles are symmetric in size and shape. Brain: No intracranial bleeds or masses. There is moderate cerebral volume loss for age, with resultant ventricular and sulcal prominence. There are moderate periventricular and deep white matter chronic small vessel ischemic changes. There is intracranial internal carotid artery atherosclerosis. Skull and face: Calvarium and visualized facial bones appear intact, without suspicious lesions. Sinuses: Postsurgical changes in right maxillary sinus. Visualized sinuses and mastoids are clear. IMPRESSION: 1. No acute intracranial abnormalities. 2. Cerebral volume loss and chronic microvascular ischemic changes. Dictated by: Emigdio Tang M.D. on 01/27/2021 at 10:31 Approved by: Emigdio Tang M.D. on 01/27/2021 at 10:33 CTA - brain/neck: Radiologist's Impression: PROCEDURE: CT ANGIO HEAD AND NECK INDICATIONS: left leg weakness TECHNIQUE: After the administration of intravenous contrast, 1 mm thick sections acquired from the aortic arch through the [place] of [place]. Post-contrast 4.5 mm thick sections then re-acquired from the foramen magnum to the vertex. 3-dimensional ldnaktt-mymquozgn-qghsvjcigs (MIP) and/or volume rendering reformats were acquired of the central intracranial vasculature and neck separately. COMPARISON: [facility], CT, CT ANGIO HEAD AND NECK, 01/21/2021, 20:42. FINDINGS: Image quality: Excellent. BRAIN: CSF spaces: Ventricles are normal in size and shape. Basal cisterns are patent. No extra-axial fluid collections. Brain: No midline shift. No intracranial bleeds or masses. Diez-white matter interface appears intact. Skull and face: Calvarium and facial bones appear intact, without suspicious lesions. Orbits appear normal. Sinuses: Sinuses and mastoids are clear. HEAD CT ANGIOGRAPHY: Anterior circulation: Intracranial internal carotid arteries are normal in size and flow. Mild atherosclerotic stenosis involves the bilateral cavernous internal carotid arteries. The flow within the paired anterior cerebral arteries is normal and symmetric. The flow within the middle cerebral arteries is normal and symmetric. The anterior communicating artery is seen. No aneurysms are seen. Posterior circulation: Visualized portions of the vertebral arteries demonstr ate normal caliber, and join to form a normal appearing basilar artery. Flow within the posterior cerebral arteries is normal and symmetric. No aneurysms are seen. NECK CT ANGIOGRAPHY: Carotid system: The great vessels demonstrate a conventional anatomy as they arise from the aortic arch. The origins of the common carotid arteries appear patent. The common carotid arteries demonstrate normal caliber and courses. The bifurcation regions are both widely patent. There is roughly 30% right and 20% left calcific origin stenosis involving the internal carotid arteries bilaterally. Posterior circulation: The origins of the vertebral arteries both appear widely patent. The more superior extracranial portions of both vertebral arteries also demonstrate normal courses and calibers. They join to form a normal appearing basilar artery. Soft tissues: Bilateral thyroid nodules are present, largest of which is in the left lobe posteriorly measuring 12 mm. Visualized neck soft tissues otherwise demonstrate no suspicious abnormalities. Mild biapical emphysema. Bones: No suspicious bony lesions. Visualized cervical spine appears normally aligned. IMPRESSION: 1. No acute process involving the arterial tree of the head neck. No significant change compared to 01/21/2021. 2. Mild bilateral internal carotid artery stenosis. 3. Bilateral thyroid nodules, which could be further assessed with nonemergent outpatient follow-up ultrasound examination, if clinically indicated. 4. Emphysema. Any quantitative measurements of stenosis were performed using NASCET criteria. Dictated by: Fly Knight M.D. on 01/27/2021 at 11:40 ECG Data Attestation: I personally reviewed and interpreted this ECG as follows: Prior ECG tracings: available for review Interpretation: Atrial flutter rate [address] changes similar to previous EKG MDM Narrative Medical decision making narrative: Patient's left leg actually improved while in the emergency department. Upon re-evaluation he was able to lift it without any difficulty. He has now had at least 3 episodes in 1 week. He has been on Plavix supposedly for the last 5 that her days since his last episode. He had a full workup within the week. [address] jain, neurology, updated him on patient's history recent admission in current symptoms requesting for guidance on treatment. He agreed with Plavix but thought symptoms would have stabilized after 5 days. Recommend platelet function testing. Also suggested possible hypoperfusion perhaps too many blood pressure medications possible BP goal in the 150s Brilinta may be an option. However without seeing the patient in reviewing all things difficulty make recommendations. He was unsure if GI bleeding had been corrected. 1330 , patient's primary care provider updated on patient's current symptoms. And Neurology recommendations. He states that AVMs have been repaired in 2018 & 2016 following an epi injections by EGD. He thought it would be okay to start Eliquis on patient a but preferred patient be admitted to the hospital and monitored for bleeding. Patient may be a candidate for Watchman however he will need to be anticoagulated prior to that. Dr. porter updated on patient's symptoms test results and others recommendations. She graciously accepts for observation. Discharge Plan Departure Patient Disposition: Admitted as Observation Clinical Impression: Transient atrial fibrillation Admit Date/Time: 01/27/21 14:11 Admit Provider: Briana Porter
--- NOTE | 2021-01-27 14:05 | PC.NURSE ---
dtr Medina called. Permission received from pt to speak with her and discuss information. Dtr aware of possible admission but that there is no set plan as of yet. Answered questions.
--- NOTE | 2021-01-27 14:15 | PC.NURSE ---
Called daughter Medina back and notified that her father was going to be admitted obs to hospital.
[2021-01-27 14:38] LABS: COVID19 - ADMIT (NP swab/PCR) Negative (Negative)
--- NOTE | 2021-01-27 19:58 | P.HP_ITS ---
History of Present Illness History of Present Illness Date Patient Seen: 01/27/21 Time Patient Seen: 19:48 Chief complaint: weakness Narrative: Patient is an 85-year-old male Marvin Diaz who presents to the ED today with a chief compliant of GI bleed and left-sided neurologic symptoms. Patient has a history of atrial flutter, atrial fibrillation, aortic stenosis, COPD, gastric AVM with GI bleed in the past. He says he went to bed normal last evening woke up around midnight and noticed that he had some left arm shaking. He talked to his daughter this morning who recommended he go to the emergency department. He was actually admitted for TIA January 21 through the for the same. He actually had 2 episodes both involving the left side at that time. He has history of valve replacement and cannot have an MRI and due to his GI bleeding on able to take full anticoagulation. Plavix was added for risk reduction over the next 21 days. Upon admit to the floor patient denies any further signs or symptoms or weakness, or speech difficulties. He does report that he feels worsened fatigue than his hospitalization on 01/21/21-01/22/21, and still finding it very difficult to think and then express himself he notes fair amount of memory loss in general but is possibly his base line. Patient does not recall that he came in for chief complaint of GI bleed, and denies GI bleeding. Patient notes that his last symptoms of weakness resolved prior to ED and have not reoccurred since being in the hospital. Patient denies any pain numbness tingling chest pain shortness of breath weakness or vertigo. Patient's vitals upon admit temp 97.7?, BP 138/66, HR 69, RR 18, O2 saturation 98% on room air. Patient's labs all within limits including a negative troponin. EKG:Atrial flutter rate [address] changes similar to previous EKG. CTA:No acute process involving the arterial tree of the head neck. No significant change compared to 01/21/2021. Mild bilateral internal carotid artery stenosis. Bilateral thyroid nodules, which could be further assessed with nonemergent outpatient follow-up ultrasound examination, if clinically indicated. Emphysema. Head CT:No acute intracranial abnormalities. Cerebral volume loss and chronic microvascular ischemic changes.Echo 01/21/2021: EF 50-55% ED Consult- :[address] Almanza, neurology, updated him on patient's history recent admission in current symptoms requesting for guidance on treatment. He agreed with Plavix but thought symptoms would have stabilized after 5 days. Recommend platelet function testing. Also suggested possible hypoperfusion perhaps too many blood pressure medications possible BP goal in the 150s Brilinta may be an option. However without seeing the patient in re viewing all things difficulty make recommendations. He was unsure if GI bleeding had been corrected. 1330 , patient's primary care provider updated on patient's current symptoms. And Neurology recommendations. He states that AVMs have been repaired in 2018 & 2016 following an epi injections by EGD. He thought it would be okay to start Eliquis on patient a but preferred patient be admitted to the hospital and monitored for bleeding. Patient may be a candidate for Watchman however he will need to be anticoagulated prior to that. 01/22/21 Dr. Carrillo D/C Summary:Hospital Course: This is an 85-year-old male patient with a past medical history significant for atrial fibrillation, atrial flutter, aortic stenosis (s/p AVR), COPD with restrictive lung disease, gastric AVM with history of GI bleed, hypertension, hyperlipidemia and rheumatoid arthritis who presented to the ER with recurrent left arm numbness and flaccidity that has resolved but persistent mild expressive aphasia. He had minimal deficits with word-finding. No evidence of acute infarct was found on CT imaging. Given his history of valve replacement he cannot have an MRI. These incidents are suspected in the setting of atrial flutter, which is known, however the patient is unable to take full anticoagulation due to a prior history of a gastric AVM. Plavix was added for risk reduction over the next 21 days, given his CT angiogram did show some small vessel disease. No other medi cation changes were necessary, and his blood pressure was controlled on his usual home medications. Patient History Medical History Acquired arteriovenous malformation of stomach Aortic valvular stenosis Atrial fibrillation Cholelithiasis Chronic obstructive pulmonary disease Fatigue Gallstone pancreatitis Generalized anxiety disorder History of gastrointestinal hemorrhage History of tobacco abuse Hyperlipidemia Hypertension Restrictive lung disease Rheumatoid arthritis Surgical History H/O sinus surgery History of aortic valve replacement History of colonoscopy History of esophagogastroduodenoscopy (EGD) History of sinus surgery History of tonsillectomy History of tricuspid valve annuloplasty Status post mitral valve annuloplasty Family & Social History Family History Father Heart disease Hypertension Mother Heart disease Sister Heart disease Cancer Social History: household members none Prior Living Arrangements Apartment/Condo Safety & Behavioral: Feels Safe in Current Yes Environment Been Physically Hurt or No Threatened By a Person Suicidal Ideation Description None Suicide Plan Description No Plan Tobacco & Substance use: Smoking Status Former smoker alcohol intake former alcohol intake frequency 0-2 drinks per day Substance Use Type marijuana Meds Home Medications and Allergies Home Medications Medication Instructions Recorded Confirmed Type atorvastatin [Lipitor] 20 mg PO BEDTIME #0 05/16/17 01/27/21 History lorazepam 1 mg PO DAILY PRN #0 11/24/17 01/27/21 History ascorbic acid (vitamin C) [Vitamin 500 mg PO QID 05/21/18 01/27/21 History C] diltiazem HCl 360 mg PO DAILY 05/21/18 01/27/21 History metoprolol succinate [Toprol XL] 200 mg PO QAM 05/21/18 01/27/21 History Centrum Silver Men 1 tab PO DAILY 12/01/18 01/27/21 History acetaminophen 500 mg PO Q6H PRN 12/01/18 01/27/21 History cholecalciferol (vitamin D3) 2,000 unit PO BID 12/01/18 01/27/21 History [Vitamin D3] coenzyme Q10 [CoQ-10] 300 mg PO DAILY 12/01/18 01/27/21 History cyanocobalamin (vitamin B-12) 100 mcg PO BID 12/01/18 01/27/21 History diphenhydramine-acetaminophen 2 tab PO BEDTIME PRN 12/01/18 01/27/21 History [Tylenol PM Extra Strength] ferrous sulfate 325 mg PO DAILY 12/01/18 01/27/21 History furosemide [Lasix] 20 mg PO QAM 12/01/18 01/27/21 History lisinopril 2.5 mg PO DAILY 12/01/18 01/27/21 History metoprolol succinate 100 mg PO QPM 12/01/18 01/27/21 History pantoprazole 40 mg PO BID 12/01/18 01/27/21 History sennosides-docusate sodium 1 tab PO DAILY PRN 12/01/18 01/27/21 History [Senna-S] Allergies Allergy/AdvReac Type Severity Reaction Status Date / Time aspirin [ASPIRIN] Allergy Intermediate HIVES, Verified 01/21/21 17:18 EARS RING lactose [LACTOSE] Allergy Unknown Verified 01/21/21 17:18 Review of Systems Review of Systems ROS: Yes All systems reviewed with the patient and are negative except as otherwise documented Constitutional Constitutional: Reports fatigue Eyes Eyes: Reports system reviewed and no additional complaints, except as documented ENT Ears, Nose, Mouth, and Throat: Yes system reviewed and no additional complaints, except as documented Cardiovascular Cardiovascular: Reports system reviewed and no additional complaints, except as documented Respiratory Respiratory: Reports system reviewed and no additional complaints, except as documented Neurologic Neurologic: Reports system reviewed and no additional complaints, except as documented Endocrine Endocrine: Reports fatigue Exam Vital Signs (past 8 hours): - 01/27/21 12:11 01/27/21 12:30 01/27/21 13:00 Temperature Pulse Rate 68 68 67 Respiratory Rate 21 22 24 Blood Pressure 126/60 Pulse Oximetry 95 96 96 01/27/21 13:15 01/27/21 13:30 01/27/21 13:45 Temperature Pulse Rate 68 67 67 Respiratory Rate 22 25 H 22 Blood Pressure 125/62 114/57 L 123/60 Pulse Oximetry 97 96 96 01/27/21 14:00 01/27/21 14:15 01/27/21 14:30 Temperature Pulse Rate 67 67 67 Respiratory Rate 20 22 24 Blood Pressure 118/57 L 125/61 124/64 Pulse Oximetry 96 96 97 01/27/21 14:45 01/27/21 15:00 01/27/21 15:01 Temperature Pulse Rate 67 67 66 Respiratory Rate 22 24 20 Blood Pressure 125/60 140/60 Pulse Oximetry 96 95 96 01/27/21 15:15 01/27/21 15:35 01/27/21 19:33 Temperature 97.7 F 98.0 F Pulse Rate 67 69 66 Respiratory Rate 20 18 18 Blood Pressure 132/65 138/66 110/56 L Pulse Oximetry 96 98 95 Oxygen Delivery Method Room Air Narrative Exam Narrative: General: Patient is a well-developed, well-nourished male, appears younger than stated age in no distress at this time. HEENT: Normocephalic, atraumatic, extraocular muscles intact, oral pharynx is clear and mucous membranes are moist. Neck is supple and symmetric, trachea is midline, no adenopathy, no thyroid enlargement, nontender, no masses palpated. Negative for JVD Chest: Normal AP diameter and contour without kyphoscoliosis, no nasal flaring, retractions, or tachypneic labored Lungs: Auscultation of all lung tan are clear without adventitious sounds, wheezes, rhonchi, or rales. Cardio: regular rate and rhythm without murmur, rubs, or gallops, no carotid bruit, no cardiac pulsations present. Abdomen: Soft nontender, negative for organomegaly, or masses. Bowel sounds are present in all 4 quadrants without guarding or rebound, no CVA tenderness. Musculoskeletal: Muscle strength and tone are equal within normal limits, no deformity, crepitus, effusions, cyanosis, clubbing or edema present. Full range of motion intact radial and pedal pulses are normal. Skin: Warm dry and intact without rashes, ulcerations or petechiae. Neuro: Alert and orientated x3, suspect memory loss/cognitive impairment, strength is +5/5 in all extremities, sensation to touch intact, no gross deficits noted of cranial nerves. Psych: Patient has a well-kept appearance, appropriate affect, mental status attitude thought context and judgment are appropriate for age. Objective Labs Result Diagrams: 01/27/21 11:00 01/27/21 11:00 Labs: Laboratory Results - last 24 hr 01/27/21 01/27/21 01/27/21 11:00 11:00 11:00 WBC 7.6 RBC 4.49 L Hgb 13.6 Hct 41.0 MCV 91.2 MCH 30.3 MCHC 33.3 RDW 13.1 Plt Count 214 Neut % (Auto) 76.0 H Lymph % (Auto) 13.5 L [place] % (Auto) 9.2 Eos % (Auto) 0.5 L Baso % (Auto) 0.8 Neut # (Auto) 5800 Lymph # (Auto) 1000 L [place] # (Auto) 700 Eos # (Auto) 0 Baso # (Auto) 100 PT 12.0 INR 1.1 APTT 32 Sodium 138 Potassium 4.3 Chloride 99 Carbon Dioxide 32 BUN 14 Creatinine 0.79 Estimated GFR > 60.0 BUN/Creatinine Ratio 17.7 Glucose 124 H Calcium 9.2 Total Bilirubin 0.4 AST 23 ALT 14 Alkaline Phosphatase 69 Total Creatine Kinase 24 L CK-MB (CK-2) TNP CK-MB (CK-2) Rel Index TNP Troponin I < 0.012 Total Protein 7.2 Albumin 4.4 Globulin 2.8 Albumin/Globulin Ratio 1.6 SARS-CoV-2 (PCR) 01/27/21 13:40 WBC RBC Hgb Hct MCV MCH MCHC RDW Plt Count Neut % (Auto) Lymph % (Auto) [place] % (Auto) Eos % (Auto) Baso % (Auto) Neut # (Auto) Lymph # (Auto) [place] # (Auto) Eos # (Auto) Baso # (Auto) PT INR APTT Sodium Potassium Chloride Carbon Dioxide BUN Creatinine Estimated GFR BUN/Creatinine Ratio Glucose Calcium Total Bilirubin AST ALT Alkaline Phosphatase Total Creatine Kinase CK-MB (CK-2) CK-MB (CK-2) Rel Index Troponin I Total Protein Albumin Globulin Albumin/Globulin Ratio SARS-CoV-2 (PCR) Negative Assessment & Plan Assessment & Plan narrative: Assessment & Plan narrative: This is an 85-year-old male patient with a past medical history significant for atrial fibrillation, atrial flutter, aortic stenosis (s/p AVR), COPD with restrictive lung disease, gastric AVM with history of GI bleed, hypertension, hyperlipidemia and rheumatoid arthritis who presents to the ER with recurrent left arm numbness and flaccidity that has resolved blood presents with persistent expressive aphasia since yesterday morning and GI bleed. 1. Acute neurological deficit, possible TIA versus CVA, acute, present on admission. -patient with focal left upper and lower extremity numbness in flaccidity which is resolved spontaneously prior to ED. Patient denies developing specific expressive aphasia symptoms but does complain of persistent word-finding difficulty.Given his history of valve replacement he cannot have an MRI. ED :Patient's left leg actually improved while in the emergency department. Upon re-evaluation he was able to lift it without any difficulty. He has now had at least 3 episodes in 1 week. He has been on Plavix supposedly for the last 5 days since his last episode. He had a full workup within the week. -patient admitted for observation EKG:Atrial flutter rate [address] changes similar to previous EKG. CTA:No acute process involving the arterial tree of the head neck. No significant change compared to 01/21/2021. Mild bilateral internal carotid artery stenosis. Bilateral thyroid nodules, which could be further assessed with nonemergent outpatient follow-up ultrasound examination, if clinically indicated. Emphysema. Head CT:No acute intracranial abnormalities. Cerebral volume loss and chronic microvascular ischemic changes.Echo 01/21/2021: EF 50-55% -patient admitted on telemetry stroke protocol in place, NIHSS Q shift, NIHSS on admission 0 -patient to be monitored on tele medicine, aspiration precautions, initial neuro assessment, vital signs Q 2 hours times 12, then q.4 hours times 12, then Q shift, intake and output monitored Q shift, weight measure daily, diet: NPO until bedside swallow completed and cleared, then patient may advance as tolerated to low carbohydrate diet. Provider to be notified for HR >120, RR >36, BP <90/60, Temp >102 -head CT reveals no acute intracranial abnormalities, age-related chronic microvascular ischemic changes. -reviewed previous CT angiogram patient has an aortic valve replacement and not a candidate for MRI. -reviewed EKG history finding chronic atrial flutter. HAS-BLED score is 4. -consults ordered physical therapy, occupational therapy, speech therapy. -prevention vaccine recommend yearly flu vaccine 2. Acute GI Bleed, acute on chronic, present on admission -will monitor patient's CBC and for bleeding and iron studies ordered -, patient's primary care provider states that AVMs have been repaired in 2018 & 2016 following an epi injections by EGD. He thought it would be okay to start Eliquis on patient a but preferred patient be admitted to the hospital and monitored for bleeding. Patient may be a candidate for Watchman however he will need to be anticoagulated prior to that. -patient was typed and cross in ED,goal hemoglobin> 7. -labs ordered CBC, peripheral smear, reticulocyte count, PT, PTT, iron profile, CMP, lactate -Protonix 40mg BID ordered 3. Chronic atrial flutter/Atrial fibrillation with controlled rate, present on admission, active -patient denies complaints of chest pain and is unaware of his irregular cardiac rhythm. -Holding meds due to possible hypoperfusion: metoprolol 100 mg twice daily, diltiazem 360 mg extended release daily. -cardiac telemetry. 4. Essential hypertension, chronic, stable, not present on admission -patient present blood pressure 117/59. -Holding: Lisinopril,and cardiac meds of metoprolol diltiazem as noted above. 5.. Hyperlipidemia, chronic, stable, not present on admit -Will continue patient's home regimen of atorvastatin 20 mg daily. 6. COPD with restrictive lung disease, chronic, stable, not present on image -patient denies shortness of breath, oxygen saturation room air is 95%. -will monitor respirations with continuous pulse ox. VTE prophylaxis:Contraindicated with GI bleed- pt changed to Eliquis 5mg BID Diet: Heart healthy low-sodium Code status: Full code Surrogate decision maker: daughter Medina to be his surrogate decision maker. The patient is admitted to the hospital due to the severity of symptoms requiring further evaluation and monitoring. The patient is admitted as observation status with expected length of stay to be less than 2 midnights. Quality VTE Deep Vein Thrombosis/Pulmonary Embolism Present on Admission: No
[2021-01-27] MEDS: LACTATED RINGERS 1,000 ML 100 ML IV (20:17)
[2021-01-27] MEDS: ACETAMINOPHEN 325 MG TABLET 975 MG PO (20:25)
[2021-01-27] MEDS: APIXABAN 5 MG TABLET PO (20:26)
[2021-01-27] MEDS: ATORVASTATIN 20 MG TABLET PO (20:26)
[2021-01-27] MEDS: PANTOPRAZOLE 40 MG VIAL IV (20:26)
[2021-01-27] MEDS: diphenhydrAMINE 25 MG TABLET 50 MG PO (20:26)
[2021-01-27] MEDS: DOCUSATE 100 MG CAPSULE PO (20:28)
[2021-01-27] MEDS: SENNOSIDES 8.6 MG TABLET PO (20:28)
[2021-01-27 20:42] LABS: Reticulocyte Count, Percent 1.3 % (0.87-2.60)
[2021-01-27 20:48] LABS: Lactate (Lactic Acid) 3.1 mmol/L (0.7-2.1)
--- NOTE | 2021-01-27 21:58 | PC.NURSE ---
Pt arrived from ED, alert, slight forgetfulness. Pt lungs clear, slight decreased at based. Tele showing A fib; a flutter per ICU staff. IVF infusing @ 60cc/hr into the LAC via pump w/o incidence. Denies any discomfort at this time. Call light w/in reach, bed alarm on for pt safety. Continue w/plan of care.
[2021-01-27 22:33] LABS: Reflexed Lactate in 2 Hours Y
[2021-01-28] VITALS (11 sets, daily range): BP systolic 100–146; BP diastolic 59–85; PULSE 67–142; RESP 14–94; TEMP 36.7–37; O2SAT 95–96
[2021-01-28] MEDS: LACTATED RINGERS 500 ML 1000 ML IV (00:54)
[2021-01-28] MEDS: ACETAMINOPHEN 325 MG TABLET 975 MG PO (05:11)
[2021-01-28] MEDS: LACTATED RINGERS 1,000 ML 60 ML IV ×2 (05:14→13:56)
[2021-01-28 05:55] LABS: INR 1.3 (0.9-1.3); Prothrombin Time 14.2 SECONDS (10.1-12.7)
[2021-01-28 05:57] LABS: HEMOLYSIS < 15 (0-50); Iron 61 ug/dL (49-181)
[2021-01-28 05:59] LABS: Add Manual Diff / Slide Review NO; Basophils Absolute Auto 100 /uL (0-100); Basophils Percent Auto 0.7 % (0-2); Eosinophils Absolute Auto 100 /uL (0-450); Eosinophils Percent Auto 1.2 % (2-4); Hematocrit 40.5 % (41-53); Hemoglobin 13.5 g/dL (13.5-17.5); Lymphocytes Absolute Auto 900 /uL (1100-4500); Lymphocytes Percent Auto 11.2 % (25-40); Mean Corpuscular HGB Conc 33.4 % (30-36); Mean Corpuscular Hemoglobin 30.2 PG (26-34); Mean Corpuscular Volume 90.6 fL (80-100); Monocytes Absolute Auto 800 /uL (0-900); Monocytes Percent Auto 9.4 % (3-14); Neutrophils Absolute Auto 6500 /uL (1500-7000); Neutrophils Percent Auto 77.5 % (50-75); Platelet Count 191 X10^3/uL (150-400); Red Blood Cell Count 4.47 X10^6/uL (4.5-5.9); White Blood Cell Count 8.4 X10^3/uL (4.5-11.0)
[2021-01-28 06:06] LABS: Lactate (Lactic Acid) 1.3 mmol/L (0.7-2.1)
[2021-01-28 06:07] LABS: PTT Partial Thromboplastin Tim 36 SECONDS (26.4-36.2)
[2021-01-28 06:08] LABS: Percent Iron Saturation 20 % (20-50); Total Iron Binding Capacity 308 ug/dL (261-462); Transferrin 243 mg/dL (206-381)
[2021-01-28 06:50] LABS: Hemoglobin A1C% w Est Avg Glu 5.5 % (4.0-6.0)
[2021-01-28] MEDS: FERROUS SULFATE 325 MG TABLET PO (08:11)
[2021-01-28] MEDS: APIXABAN 5 MG TABLET PO (08:12)
[2021-01-28] MEDS: PANTOPRAZOLE 40 MG VIAL IV ×2 (08:12→19:59)
--- NOTE | 2021-01-28 10:00 | SLP.IPNOTE ---
Attempted to see pt for screening of speech/language. Pt passed Nsg swallow screen and placed on diet. Pt was in bathroom, with Nsg and then with MD at times of BL[employer] attempts. Will re-attempt as able.
--- NOTE | 2021-01-28 10:18 | OT.IP.EVAL ---
Past Medical History (Last Reviewed 01/27/21 @ 20:15 [facility] Acquired arteriovenous malformation of stomach Aortic valvular stenosis Atrial fibrillation Cholelithiasis Chronic obstructive pulmonary disease Fatigue Gallstone pancreatitis Generalized anxiety disorder History of gastrointestinal hemorrhage History of tobacco abuse Hyperlipidemia Hypertension Restrictive lung disease Rheumatoid arthritis Surgical History (Last Reviewed 01/27/21 @ 20:15 by [facility] H/O sinus surgery History of aortic valve replacement History of colonoscopy History of esophagogastroduodenoscopy (EGD) History of sinus surgery History of tonsillectomy History of tricuspid valve annuloplasty Status post mitral valve annuloplasty Occupational Therapy Inpatient Evaluation/Re-Eval M1 PT/OT-IP Prior Functional Status Start: 01/28/21 13:10 Freq: NEEDED Status: Active Protocol: Document 01/28/21 13:10 [facility] (Rec: 01/28/21 13:29 [facility] [id number]) Medical Review Prior Functional Status Medical History Reviewed Yes Communication able to make needs known Mobility and Gait pt stated that he is independent with all mobilities and ambulation without AD but is not very active Activities of Daily Living and IADL's Pt states does all his ADL's, IADl's, and drives. Prior Functional Level (Other details) This PT just evaluated pt last 01/22/21 for TIA. asked pt regarding last hospitalization and pt stated that he does not remember any of those and does not even remember being in the hospital Social History Household Members none Living Arrangements Apartment/Condo Number of Floors (Floors) One Floor Number of Stairs To Enter/Railing? no steps to enter Home Environment Standard Height Toilet,Walk in Shower,Built-In Shower Seat Home Equipment Straight Cane,Hand Held Shower ,Grab Bars In Shower M2 OT-IP Current Condition Start: 01/28/21 13:10 Freq: Status: Active Protocol: Document 01/28/21 13:10 [facility] (Rec: 01/28/21 13:29 [facility] [id number]) Occupational Therapy Current Condition Current Condition Evaluation Date 01/28/21 Treatment Diagnosis GI BLeed/ possible TIA/CVA Diagnosis Onset Date 01/27/21 M3 OT- IP Subjective and Pain Start: 01/28/21 13:10 Freq: Status: Active Protocol: Document 01/28/21 13:10 [facility] (Rec: 01/28/21 13:29 [facility] [id number]) OT- Subjective Occupational Therapy Visit Type Type Initial Evaluation Visit Start Time 09:45 Visit Stop Time 10:18 Total Visit Minutes 33 Occupational Therapy Visit Comments Patient Comments Pt agreed to get up for OT eval. Patient/Caregiver Goals To go home. OT Pain Assessment Pain When Pain Assessed At Rest Pain Present Pain Present Denied Pain M4 OT- IP ADL's Start: 01/28/21 13:10 Freq: Status: Active Protocol: Document 01/28/21 13:10 [facility] (Rec: 01/28/21 13:29 [facility] [id number]) OT OOD-Lfpe-Idylppi Comments OT Self-Feeding Comments NOt at meal time. OT ADL-Grooming Comments OT Grooming Comments Pt states did prior. OT ADL-Dressing General Eval Lower Body Dressing Ability Independent Comments OT Dressing Comments Pt able to do while seated. OT ADL-Toileting Comments OT Toileting Comments Pt not having to use the bathroom at the time. OT ADL-Bathing Comments OT Bathing Comments Pt wanting to shower at home. M5 OT- IP IADL's Start: 01/28/21 13:10 Freq: Status: Active Protocol: Document 01/28/21 13:10 [facility] (Rec: 01/28/21 13:29 [facility] [id number]) OT-Instrumental Activities of Daily Living Home Safety Awareness Awareness of Need for Assistance at Home Good Awareness Ability to Problem Solve Emergency Able to Problem Solve Situations Home Safety Comments Due to pt's decreased short term memory would be best for pt to have supervision/assist for iADL needs. M6 OT- IP Functional Cognition Start: 01/28/21 13:10 Freq: Status: Active Protocol: Document 01/28/21 13:10 [facility] (Rec: 01/28/21 13:29 [facility] [id number]) Cognitive Factors Limiting Selfcare Function Cognitive Ability Level of Alertness Alert Patient Orientation Name Attention Span Ability Capable of Focused Attention, Capable of Sustained Attention Ability to Follow Commands Able to Follow One Step Commands Memory Description Short Term Impaired,Group Home Impaired Safety Awareness Underestimates Need for Assistance Cognitive Comments Cognitive Assessment Comments Pt mainly decreased memory, not able to recall that he was in the hospital last week or able to recall how old he is. Pt able to problem solve home safety situations with increased time versus during last hospitalization not able to recall emergency number of 911 and states would open a door to a stranger. Pt is highly aware that he has issues with his memory and thinking. Pt not able to recall directions for [place] and strongly suggested again that pt not drive. Pt continues to have word finding issues. OT- Vision and Hearing OT- Hearing Assessment OT- Hearing Assessment WFL OT- Vision Assessment Visual Acuity Glasses All The Time Vision Assessment Comments Pt wears bifocals. M7 OT- IP Mobility and Balance Start: 01/28/21 13:10 Freq: Status: Active Protocol: Document 01/28/21 13:10 [facility] (Rec: 01/28/21 13:29 [facility] [id number]) OT- Bed Mobility Assessment Rolling Type of Rolling Roll to Right Level of Assistance Standby Assistance Supine to Sit Supine to Sit Assist Standby Assistance Sit to Supine Sit to Supine Assist Standby Assistance OT-Transfer Assessment Sit to and From Stand Sit to and from Stand Standby Assistance Transfers Transfer Ability Standby Assistance Technique Transfer Destination Bed,Chair Transfer Technique Stand Step Pivot Devices Transfer Assistive Devices None Comments Mobility Comments SBA for level surfaces in the room. OT- Balance Assessment Sitting Balance and Reactions Static Sitting Balance Ability Normal Dynamic Sitting Balance Ability Good Standing Balance and Reactions Static Standing Balance Ability Fair Dynamic Standing Balance Ability Fair M8 OT- IP Objective Assessments Start: 01/28/21 13:10 Freq: Status: Active Protocol: Document 01/28/21 13:10 [facility] (Rec: 01/28/21 13:29 [facility] [id number]) OT Gross Range of Motion Upper Extremity Range of Motion Assessment Within Functional Limits OT Strength Upper Extremity Strength Assessment Within Functional Limits OT- Coordination Assessment Upper Extremity Finger to Nose Test Within Functional Limits Comments Coordination Comments Right hand 9 hole peg 90%, left hand improved from 50%- 75% from last admissions. M9 OT- IP Assessment and Plan Start: 01/28/21 13:10 Freq: Status: Active Protocol: Document 01/28/21 13:10 [facility] (Rec: 01/28/21 13:29 [facility] [id number]) OT Summary Assessment and Plan Potential Rehabilitation Potential Fair Analytic Complexity at Evaluation Low Summary OT Impairments Coordination,Functional Cognition,Functional Mobility, Bathing Progress Towards Goals Progressing Toward Goals Assessment Summary Pt here due to possible TIA / CVA and main barrier are decrease memory especially STM , dynamic balance, and would benefit from having supervision, assist at home especially for his cognitive needs. Pt is aware that he is not thinking well and has poor short term memory. Pt would benefit from possible memory care facility if not able to have assist at home. Goals Grooming Goal Independent Dressing Goal Independent Toileting Goal Independent Bathing Goal Independent Toilet Transfer Goal Independent Shower Transfer Goal Independent Days to Meet Goals 5 Frequency of Treatment Frequency Of Treatment Once a Day Treatment Plan OT Treatment Plan ADL Training,Functional Cognition Training,Functional Mobility,Patient/Family Education,Discharge Planning Other Treatment Recommendations and Next Shower if still here. Treatment Focus Discharge Recommendations OT Discharge Recommendations Home with 24/ Assist Available Home Equipment Needs shower chair Transportation Needs at Discharge Private Vehicle
--- NOTE | 2021-01-28 10:49 | CM.DANOTE ---
DCP: Case received, EMR reviewed and met with patient. Introduced self and role. Was able to obtain information from patient regarding his baseline activity status prior to hospitalization. DCP assessment completed with information currently available. Patient is an 85 year old male who admitted yesterday afternoon to the care of the hospitalist team. PCP: Dr. Leone. Payer: confirmed: [facility]. Patient came to the hospital via ambulance secondary to having some fatigue, and weakness. He is here to evaluate for CVA, TIA work up. Patient has history of atrial flutter. Met with patient in his room. He is alert and oriented. He resides here in [place] alone, is divorces, but has two local daughters, Medina and Alyssa. He stated that he is independent at his baseline, and has been driving. He will be working with the therapy team today. P: DCP to continue to follow for any needs. Patient should be able to go home when he is medically stable and cleared by the therapy team. Lorrie Mercado RN/Certified Master Safecracker
--- NOTE | 2021-01-28 10:51 | PT.IIE ---
Surgical History (Last Reviewed 01/27/21 @ 20:15 by ZARIA Sandoval) H/O sinus surgery History of aortic valve replacement History of colonoscopy History of esophagogastroduodenoscopy (EGD) History of sinus surgery History of tonsillectomy History of tricuspid valve annuloplasty Status post mitral valve annuloplasty Medical History (Last Reviewed 01/27/21 @ 20:15 by ZARIA Sandoval) Acquired arteriovenous malformation of stomach Aortic valvular stenosis Atrial fibrillation Cholelithiasis Chronic obstructive pulmonary disease Fatigue Gallstone pancreatitis Generalized anxiety disorder History of gastrointestinal hemorrhage History of tobacco abuse Hyperlipidemia Hypertension Restrictive lung disease Rheumatoid arthritis Physical Therapy Inpatient Evaluation/Re-Eval M1 PT/OT-IP Prior Functional Status Start: 01/28/21 11:59 Freq: NEEDED Status: Active Protocol: Document 01/28/21 10:51 [facility] (Rec: 01/28/21 12:41 AB [id number]) Medical Review Prior Functional Status Medical History Reviewed Yes Communication able to make needs known Mobility and Gait pt stated that he is independent with all mobilities and ambulation without AD but is not very active Prior Functional Level (Other details) This PT just evaluated pt last 01/22/21 for TIA. asked pt regarding last hospitalization and pt stated that he does not remember any of those and does not even remember being in the hospital Social History Household Members none Living Arrangements Apartment/Condo Number of Floors (Floors) One Floor Number of Stairs To Enter/Railing? no steps to enter Home Environment Standard Height Toilet,Walk in Shower,Built-In Shower Seat Home Equipment Straight Cane,Hand Held Shower ,Grab Bars In Shower M2 PT-IP Current Condition Start: 01/28/21 11:59 Freq: NEEDED Status: Active Protocol: Document 01/28/21 10:51 [facility] (Rec: 01/28/21 12:41 AB [id number]) Physical Therapy Current Condition Current Condition Evaluation Date 01/28/21 Treatment Diagnosis A-fib; weakness; difficulty in walking Onset Date 01/27/21 Precautions Other Precautions falls M3 PT-IP Subjective Start: 01/28/21 11:59 Freq: NEEDED Status: Active Protocol: Document 01/28/21 10:51 [facility] (Rec: 01/28/21 12:41 AB [id number]) Subjective Physical Therapy Visit Type Type Initial Evaluation Visit Start Time 10:51 Visit Stop Time 11:14 Total Visit Minutes 23 Number of SPECIALIST FIELD ENGINEER Visits 0 Physical Therapy Visit Comments Patient Comments pt is agreeable to do PT Therapy Pain Assessment Pain Present Pain Present Denied Pain M4 PT-IP Mobility and Gait Start: 01/28/21 11:59 Freq: NEEDED Status: Active Protocol: Document 01/28/21 10:51 [facility] (Rec: 01/28/21 12:41 AB [id number]) PT-Bed Mobility Assessment Supine to Sit Supine to Sit Independent Sit to Supine Sit to Supine Independent PT-Transfer Assessment Sit to and From Stand Sit to and from Stand Standby Assistance Equipment Transfer Assistive Device None,Gait Belt Orthotic/Prosthetic Devices or Brace: No Transfers Transfer Destination Chair Transfer Technique ambulated without AD Transfer Ability Level of Assist Standby Assistance Comments Mobility Comments pt completed supine to sit mod I. pt can be impulsive. pt was able to sit on EOB SBA. completed sit to stand SBA and ambualted in room without AD SBA with slight LOB to the R but able to recover without assistance needed. pt agreed to ambulate in the hallway and completed ~200 ft without AD SBA. ambulated back to room . Tinetti balance assessment completed: moderate fall risk. pt agreed to sit up on chair. positioned on chair. call light and table placed within reach. Gait Assessment Gait Gait Assistance Required: Standby Assistance Distance (Feet) 200 Able to Maintain Weight Bearing Status Yes During Gait Assistive Devices Assistive Device None,Gait Belt Orthotic/Prosthetic Devices or Brace: No Gait Deviations General Gait Pattern Antalgic Factors Limiting Gait Function Factors Limiting Gait Function Poor Balance,Poor Safety Awareness Comments Gait Comments pls refer to mobility section for details PT-Balance Assessment Sitting Balance and Reactions Static Sitting Balance Ability Normal Dynamic Sitting Balance Ability Good Standing Balance and Reactions Static Standing Balance Ability Fair Dynamic Standing Balance Ability Fair Device Used without AD Functional Assessments Functional Tests Tinetti Balance and Gait Assessment bal: 10/15 gait: 07/12 total: : mod fall risk M5 PT-IP Objective Assessments Start: 01/28/21 11:59 Freq: NEEDED Status: Active Protocol: Document 01/28/21 10:51 AB (Rec: 01/28/21 12:41 AB [id number]) Orientation Orientation/Cognition Level of Alertness Alert Orientation Name Language Function Ability No Deficits Noted Safety Awareness Decreased Safety Awareness Memory Description Short Term Impaired,[employer] Business Segment Leader Impaired Gross Range of Motion Lower Extremity ROM Assessment Within Functional Limits Strength Lower Extremity Strength Hip 4-/5 Knee 4-/5 Sensation Assessment Sensation Gross Sensation WNL Muscle Tone Muscle Tone WNL Yes M6 PT-IP Treatment Start: 01/28/21 11:59 Freq: NEEDED Status: Active Protocol: Document 01/28/21 10:51 AB (Rec: 01/28/21 12:41 AB [id number]) Physical Therapy Treatment Education Education Provided Safety M7 PT-IP Assessment and Plan Start: 01/28/21 11:59 Freq: NEEDED Status: Active Protocol: Document 01/28/21 10:51 AB (Rec: 01/28/21 12:41 AB [id number]) PT Summary Assessment and Plan Potential Rehabilitation Potential Good Status of Condition at Evaluation Stable Summary Impairments Pain,ROM,Strength,Balance, Coordination,Cognition,Bed Mobility,Transfers,Gait, Activity Tolerance Assessment Summary pt requiring SBA with mobility but with unsteady gait and LOB but able to recover balance without AD. pt has cognitive issues and does not remember previous hospitalizations. pt is impulsive with decrease safety awareness. pt lives alone and will need assistance for safety. pt will benefit from outpt PT for balance issues and ambulation training. Goals Transfer Goal Independent Gait Goal Independent Gait Distance 250 Days to Meet Goals 3 Frequency of Treatment Frequency Of Treatment Once a Day Treatment Plan Physical Therapy Treatment Plan Bed Mobility Training,Transfer Training,Gait Training, Therapeutic Exercise,Balance Retraining,Discharge Planning, Neuromuscular Re-ed, Coordination Retraining Precautions Other Precautions falls Recommendations To Nursing Amount of Assist Needed Standby Assistance Discharge Recommendations PT Discharge Recommendations Home with Assistance, Outpatient PT Transportation Needs at Discharge Private Vehicle
--- NOTE | 2021-01-28 11:50 | PC.NURSE ---
Pt's HR ranging from 120-140, monitored on tele. Pt up sitting in chair asymptomatic, denies chest discomfort, lightheadedness, dizziness. BP stable. made aware.
[2021-01-28] MEDS: METOPROLOL ER 50 MG TABLET 100 MG PO ×2 (13:11→19:56)
--- NOTE | 2021-01-28 14:24 | P.DS_ITS ---
History of Present Illness History of Present Illness Date Patient Seen: 01/28/21 Chief complaint: weakness Narrative: Patient is an 85-year-old male Marvin Diaz who presents to the ED today with a chief compliant of GI bleed and left-sided neurologic symptoms. Patient has a history of atrial flutter, atrial fibrillation, aortic stenosis, COPD, gastric AVM with GI bleed in the past. He says he went to bed normal last evening woke up around midnight and noticed that he had some left arm shaking. He talked to his daughter this morning who recommended he go to the emergency department. He was actually admitted for TIA January 21 through the for the same. He actually had 2 episodes both involving the left side at that time. He has history of valve replacement and cannot have an MRI and due to his GI bleeding on able to take full anticoagulation. Plavix was added for risk reduction over the next 21 days. Upon admit to the floor patient denies any further signs or symptoms or weakness, or speech difficulties. He does report that he feels worsened fatigue than his hospitalization on 01/21/21-01/22/21, and still finding it very difficult to think and then express himself he notes fair amount of memory loss in general but is possibly his base line. Patient does not recall that he came in for chief complaint of GI bleed, and denies GI bleeding. Patient notes that his last symptoms of weakness resolved prior to ED and have not reoccurred since being in the hospital. Patient denies any pain numbness tingling chest pain shortness of breath weakness or vertigo. Patient's vitals upon admit temp 97.7?, BP 138/66, HR 69, RR 18, O2 saturation 98% on room air. Patient's labs all within limits including a negative troponin. EKG:Atrial flutter rate [address] changes similar to previous EKG. CTA:No acute process involving the arterial tree of the head neck. No significant change compared to 01/21/2021. Mild bilateral internal carotid artery stenosis. Bilateral thyroid nodules, which could be further assessed with nonemergent outpatient follow-up ultrasound examination, if clinically indicated. Emphysema. Head CT:No acute intracranial abnormalities. Cerebral volume loss and chronic microvascular ischemic changes.Echo 01/21/2021: EF 50-55% ED Consult- :[address] Almanza, neurology, updated him on patient's history recent admission in current symptoms requesting for guidance on treatment. He agreed with Plavix but thought symptoms would have stabilized after 5 days. Recommend platelet function testing. Also suggested possible hypoperfusion perhaps too many blood pressure medications possible BP goal in the 150s Brilinta may be an option. However without seeing the patient in reviewing all things difficulty make recommendations. He was unsure if GI bleeding had been corrected. 1330 , patient's primary care provider updated on patient's current symptoms. And Neurology recommendations. He states that AVMs have been repaired in 2018 & 2016 following an epi injections by EGD. He thought it would be okay to start Eliquis on patient a but preferred patient be admitted to the hospital and monitored for bleeding. Patient may be a candidate for Watchman however he will need to be anticoagulated prior to that. 01/22/21 Dr. Carrillo D/C Summary:Hospital Course: This is an 85-year-old male patient with a past medical history significant for atrial fibrillation, atrial flutter, aortic stenosis (s/p AVR), COPD with restrictive lung disease, gastric AVM with history of GI bleed, hypertension, hyperlipidemia and rheumatoid arthritis who presented to the ER with recurrent left arm numbness and flaccidity that has resolved but persistent mild expressive aphasia. He had minimal deficits with word-finding. No evidence of acute infarct was found on CT imaging. Given his history of valve replacement he cannot have an MRI. These incidents are suspected in the setting of atrial flutter, which is known, however the patient is unable to take full anticoagulation due to a prior history of a gastric AVM. Plavix was added for risk reduction over the next 21 days, given his CT angiogram did show some small vessel disease. No other medication changes were necessary, and his blood pressure was controlled on his usual home medications. Discharge Providers Provider Date of admission: 01/27/21 14:11 Primary care physician: Koby Leone MD Consults: 01/27/21 16:16 Consult to Dietitian, Adult Routine Comment: Reason For Exam: wt loss greater than 10lb decrease appetite 01/27/21 19:51 Consult to Discharge Planning Routine Comment: Consult to Occupational Therapy Evaluate & Treat Comment: weakness Physician Instructions: Evaluate and treat Consult to Physical Therapy Evaluate & Treat Comment: weakness Physician Instructions: Evaluate and Treat Consult to Speech Therapy Evaluate & Treat Comment: weakness Physician Instructions: Evaluate and treat Discharge provider: Briana Porter MD Summary Hospital Course Discharge Diagnosis: 1. Dementia 2. Recent TIa 3. Atrial Fibrillation 4. Hyperlipidemia Exam Vital Signs (past 8 hours): - 01/28/21 07:00 01/28/21 12:38 01/28/21 13:11 Pulse Rate 142 H Pulse Rate [Orthostatic Lying] 73 Pulse Rate [Orthostatic Sitting] 68 135 H Pulse Rate [Orthostatic Standing] 67 Blood Pressure 121/70 Blood Pressure [Orthostatic Lying] 132/65 Blood Pressure [Orthostatic Sitting] 145/76 H 125/80 Blood Pressure [Orthostatic Standing] 146/68 H Oxygen Delivery Method Room Air Objective Labs Result Diagrams: 01/28/21 05:15 01/27/21 11:00 Labs: Laboratory Results - last 24 hr 01/27/21 01/27/21 01/27/21 13:40 20:30 20:30 WBC RBC Hgb Hct MCV MCH MCHC RDW Plt Count Neut % (Auto) Lymph % (Auto) [place]icks[place] % (Auto) Eos % (Auto) Baso % (Auto) Neut # (Auto) Lymph # (Auto) [place] # (Auto) Eos # (Auto) Baso # (Auto) Percent Retic 1.3 PT INR APTT Hemoglobin A1c Lactate 3.1 H Iron TIBC % Saturation Transferrin SARS-CoV-2 (PCR) Negative 01/27/21 01/28/21 01/28/21 22:45 05:15 05:15 WBC RBC Hgb Hct MCV MCH MCHC RDW Plt Count Neut % (Auto) Lymph % (Auto) [place] % (Auto) Eos % (Auto) Baso % (Auto) Neut # (Auto) Lymph # (Auto) [place] # (Auto) Eos # (Auto) Baso # (Auto) Percent Retic PT 14.2 H INR 1.3 APTT Hemoglobin A1c 5.5 Lactate 1.0 Iron TIBC % Saturation Transferrin SARS-CoV-2 (PCR) 01/28/21 01/28/21 01/28/21 05:15 05:15 05:15 WBC 8.4 RBC 4.47 L Hgb 13.5 Hct 40.5 L MCV 90.6 MCH 30.2 MCHC 33.4 RDW 13.0 Plt Count 191 Neut % (Auto) 77.5 H Lymph % (Auto) 11.2 L [place]ickson % (Auto) 9.4 Eos % (Auto) 1.2 L Baso % (Auto) 0.7 Neut # (Auto) 6500 Lymph # (Auto) 900 L [place]on # (Auto) 800 Eos # (Auto) 100 Baso # (Auto) 100 Percent Retic PT INR APTT 36 Hemoglobin A1c Lactate Iron 61 TIBC 308 % Saturation 20 Transferrin 243 SARS-CoV-2 (PCR) 01/28/21 05:15 WBC RBC Hgb Hct MCV MCH MCHC RDW Plt Count Neut % (Auto) Lymph % (Auto) [place] % (Auto) Eos % (Auto) Baso % (Auto) Neut # (Auto) Lymph # (Auto) [place] # (Auto) Eos # (Auto) Baso # (Auto) Percent Retic PT INR APTT Hemoglobin A1c Lactate 1.3 Iron TIBC % Saturation Transferrin SARS-CoV-2 (PCR) [facility] Medical History Acquired arteriovenous malformation of stomach Aortic valvular stenosis Atrial fibrillation Cholelithiasis Chronic obstructive pulmonary disease Fatigue Gallstone pancreatitis Generalized anxiety disorder History of gastrointestinal hemorrhage History of tobacco abuse Hyperlipidemia Hypertension Restrictive lung disease Rheumatoid arthritis Surgical History H/O sinus surgery History of aortic valve replacement History of colonoscopy History of esophagogastroduodenoscopy (EGD) History of sinus surgery History of tonsillectomy History of tricuspid valve annuloplasty Status post mitral valve annuloplasty Family History Father Heart disease Hypertension Mother Heart disease Sister Heart disease Cancer Social History household members: none Smoking Status: Former smoker Tobacco: How many years used: 60 alcohol intake: former substance use type: does not use Discharge Plan Discharge orders & Medications Prescriptions: No Action atorvastatin [Lipitor] 20 MG tablet 20 mg PO BEDTIME Qty: 0 RF: 0 lorazepam 1 MG tablet 1 mg PO DAILY PRN (Reason: Anxiety) Qty: 0 RF: 0 ascorbic acid (vitamin C) [Vitamin C] 500 mg Tablet 500 mg PO QID RF: 0 diltiazem HCl 180 MG capsule,extended release 24hr 360 mg PO DAILY RF: 0 metoprolol succinate [Toprol XL] 100 MG tablet extended release 24 hr 200 mg PO QAM RF: 0 cyanocobalamin (vitamin B-12) 100 mcg Tablet 100 mcg PO BID RF: 0 sennosides-docusate sodium [Senna-S] 8.6-50 mg Tablet 1 tab PO DAILY PRN (Reason: Constipation) RF: 0 metoprolol succinate 100 mg tablet extended release 24 hr 100 mg PO QPM RF: 0 acetaminophen 500 mg Tablet 500 mg PO Q6H PRN (Reason: Fever Or Pain) RF: 0 pantoprazole 40 mg tablet,delayed release (DR/EC) 40 mg PO BID RF: 0 ferrous sulfate 325 mg (65 mg iron) tablet 325 mg PO DAILY RF: 0 lisinopril 2.5 mg tablet 2.5 mg PO DAILY RF: 0 coenzyme Q10 [CoQ-10] 100 mg Capsule 300 mg PO DAILY RF: 0 cholecalciferol (vitamin D3) [Vitamin D3] 2,000 unit Capsule 2,000 unit PO BID RF: 0 Centrum Silver Men 300-600-300 mcg Tablet 1 tab PO DAILY RF: 0 furosemide [Lasix] 20 MG tablet 20 mg PO QAM RF: 0 diphenhydramine-acetaminophen [Tylenol PM Extra Strength] 25-500 mg Tablet 2 tab PO BEDTIME PRN (Reason: Sleep) RF: 0 Follow up/Referrals: Koby Leone MD [Primary Care Provider] - Discharge Data Primary Care Provider: Koby Leone V Attending Provider: Briana Porter VTE Deep Vein Thrombosis/Pulmonary Embolism Present on Admission: No
[2021-01-28] MEDS: CLOPIDOGREL 75 MG TABLET PO (14:47)
--- NOTE | 2021-01-28 14:59 | ST.IPSLE ---
Past Medical History (Last Reviewed 01/27/21 @ 20:15 by Zee Maciel [facility]) Acquired arteriovenous malformation of stomach (Medical) Aortic valvular stenosis (Medical) Atrial fibrillation (Medical) Cholelithiasis (Medical) Chronic obstructive pulmonary disease (Medical) Fatigue (Medical) Gallstone pancreatitis (Medical) Generalized anxiety disorder (Medical) History of gastrointestinal hemorrhage (Medical) History of tobacco abuse (Social Hx) Hyperlipidemia (Medical) Hypertension (Medical) Restrictive lung disease (Medical) PFT at 05/24/16 Rheumatoid arthritis (Medical) Speech-Language Pathology Speech/Language Eval DIRECTOR OF ACCOUNTS PAYABLE Adult Cognitive Linguistic Eval Start: 01/28/21 14:39 Freq: Status: Active Protocol: Document 01/28/21 14:39 TLC (Rec: 01/28/21 14:59 TLC [id number]) Adult Cognitive Linguistic Evaluation Session Time Visit Start Time 12:40 Visit Stop Time 13:10 Total Visit Minutes [address] Porter Reason for Referral TIA Setting Assessment Location Acute Care Visit Type Note Type Initial evaluation Patient Information Identification Type Name Medical History Patient admitted for TIA symptoms. Patient was admitted for similar symptoms January 21-. 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 Patient was discharged the following day and did not receive speech therapy following his initial evaluation. Home health speech therapy was recommended for targeting safety at home, but was not completed. Subjective Patient Report Patient was sitting upright in chair in room. No others present. He stated his memory is shot and he has zero recollection of previous admission. Mental Status Alert,Cooperative Assessment Oral Motor Examination Completed No Informal Assessment Receptive Language Normal Yes Expressive Language Normal No Expressive Language Impairment(s) Confrontation naming, Expression of complex thoughts /ideas Pragmatic Language Normal Yes Speech Normal Yes Cognition Normal No Cognitive Impairment(s) Short-term memory Formal Assessment Results SLUMs was not readministered today. Task based assessment of memory was completed. Patient demonstrates relatively in tact procedural memory. He was able to explain how to get to his house with directions (go [place], go down the long road, turn left at the two water towers). He explained to me his routine for taking medication. He was noted to have moderate difficulty with word finding during these activities saying shelf for counter, medical stuff for pills/medicine and needing assistance to come up with the word cemetery. Pertaining to safety, patient reports he has recently considered selling his condo and moving in with his daughters. Prior to this admission, patient was still driving to the store, and preparing his meals using a microwave. He watches tv and reads to pass the time. Findings/Results Language Function Moderately impaired Cognitive Function Moderately impaired Findings Patient has significant word finding difficulty and short term memory impairments affecting his safety at home. I agree that moving in with his daughters would be the best option at this time given his impairments. We discussed home health speech therapy to which he declined. He also declined handouts or exercises to target word finding skills . On multiple occasions, patient stated life is good. Cognitive Communication Deficits Self-awareness of Cognitive- Situational awareness ( Communication Deficits recognition of problem in context;in real time) Concomitant Factors Concomitant Factors Hearing loss Impact on Functioning Activity Limits/Particip.Rest. Mod: General Tasks and Demands Household Tasks Interpersonal Interactions Community Safety Risks Mild: Reacting to Emergency Mod: Being Left Alone at Home Managing Medication Traveling Alone in Community Prognosis Prognosis Fair Based on Duration of symptoms/severity Plan of Care Patient/Caregiver Education Described results of evaluation,Patient expressed understanding of eval, but refused treatment
[2021-01-28] MEDS: METOPROLOL IR 50 MG TABLET 200 MG PO (17:04)
--- NOTE | 2021-01-28 18:18 | PM.PN.1 ---
Subjective Subjective Date Patient Seen: 01/28/21 Interval history: Patient is an 85-year-old male who was admitted to the hospital yesterday for left-sided weakness. He has been completely confused today and is unable to corroborate that story. In addition his metoprolol was held for low blood pressure he has since been in atrial fibrillation with a rapid rate of in the 130s all day. Exam Vital Signs (past 8 hours): - 01/28/21 12:38 01/28/21 13:11 01/28/21 15:35 Temperature 98.0 F Pulse Rate 142 H 82 Pulse Rate [Orthostatic Lying] 139 H Pulse Rate [Orthostatic Sitting] 135 H 139 H Pulse Rate [Orthostatic Standing] 140 H Respiratory Rate 18 Blood Pressure 121/70 121/77 Blood Pressure [Orthostatic Lying] 121/77 Blood Pressure [Orthostatic Sitting] 125/80 133/85 Blood Pressure [Orthostatic Standing] 134/80 Pulse Oximetry 96 Oxygen Delivery Method Room Air Narrative Exam Narrative: Confused elderly male lying in bed Lungs: Clear to auscultation Cardiac exam: Tachycardic irregularly irregular normal S1-S2 Abdomen soft and nontender Extremities: No edema Objective Labs Result Diagrams: 01/28/21 05:15 01/27/21 11:00 Labs: Laboratory Results - last 24 hr 01/27/21 01/27/21 01/27/21 20:30 20:30 22:45 WBC RBC Hgb Hct MCV MCH MCHC RDW Plt Count Neut % (Auto) Lymph % (Auto) [place]bot % (Auto) Eos % (Auto) Baso % (Auto) Neut # (Auto) Lymph # (Auto) [place] # (Auto) Eos # (Auto) Baso # (Auto) Percent Retic 1.3 PT INR APTT Hemoglobin A1c Lactate 3.1 H 1.0 Iron TIBC % Saturation Transferrin 01/28/21 01/28/21 01/28/21 05:15 05:15 05:15 WBC 8.4 RBC 4.47 L Hgb 13.5 Hct 40.5 L MCV 90.6 MCH 30.2 MCHC 33.4 RDW 13.0 Plt Count 191 Neut % (Auto) 77.5 H Lymph % (Auto) 11.2 L [place] % (Auto) 9.4 Eos % (Auto) 1.2 L Baso % (Auto) 0.7 Neut # (Auto) 6500 Lymph # (Auto) 900 L [place] # (Auto) 800 Eos # (Auto) 100 Baso # (Auto) 100 Percent Retic PT 14.2 H INR 1.3 APTT Hemoglobin A1c 5.5 Lactate Iron TIBC % Saturation Transferrin 01/28/21 01/28/21 01/28/21 05:15 05:15 05:15 WBC RBC Hgb Hct MCV MCH MCHC RDW Plt Count Neut % (Auto) Lymph % (Auto) [place] % (Auto) Eos % (Auto) Baso % (Auto) Neut # (Auto) Lymph # (Auto) [place] # (Auto) Eos # (Auto) Baso # (Auto) Percent Retic PT INR APTT 36 Hemoglobin A1c Lactate 1.3 Iron 61 TIBC 308 % Saturation 20 Transferrin 243 PFSH Medical History Acquired arteriovenous malformation of stomach Aortic valvular stenosis Atrial fibrillation Cholelithiasis Chronic obstructive pulmonary disease Fatigue Gallstone pancreatitis Generalized anxiety disorder History of gastrointestinal hemorrhage History of tobacco abuse Hyperlipidemia Hypertension Restrictive lung disease Rheumatoid arthritis Surgical History H/O sinus surgery History of aortic valve replacement History of colonoscopy History of esophagogastroduodenoscopy (EGD) History of sinus surgery History of tonsillectomy History of tricuspid valve annuloplasty Status post mitral valve annuloplasty Family History Father Heart disease Hypertension Mother Heart disease Sister Heart disease Cancer Social History household members: none Smoking Status: Former smoker Tobacco: How many years used: 60 alcohol intake: former substance use type: does not use Assessment & Plan Assessment & Plan narrative: Acute neurological deficit, possible TIA versus CVA, acute, present on admission. -patient with focal left upper and lower extremity numbness in flaccidity which is resolved spontaneously prior to ED. Patient denies developing specific expressive aphasia symptoms but does complain of persistent word-finding difficulty.Given his history of valve replacement he cannot have an MRI. ED :Patient's left leg actually improved while in the emergency department. Upon re-evaluation he was able to lift it without any difficulty. He has now had at least 3 episodes in 1 week. He has been on Plavix supposedly for the last 5 days since his last episode. He had a full workup within the week. Patient is unable to provide any coherent history. Given his history of atrial fibrillation he clearly is at risk for an acute embolic event. However the patient has had multiple AVMs in the past although none recently. Discussed his care with Dr. Leone. He recommended and agreed with not starting anticoagulation. Patient will continue on Plavix at this time. -patient admitted for observation Patient has dementia, he is quite confused at this time, given his ongoing dementia would defer anticoagulation again could, will start Aricept at this time. 2., acute on chronic, present on admission patient does not have a acute GI bleed -will monitor patient's CBC and for bleeding and iron studies ordered -, patient's primary care provider states that AVMs have been repaired in 2018 & 2016 following an epi injections by EGD. He thought it would be okay to start Eliquis on patient a but preferred patient be admitted to the hospital and monitored for bleeding. Patient may be a candidate for Watchman however he will need to be anticoagulated prior to that. -patient was typed and cross in ED,goal hemoglobin> 7. -labs ordered CBC, peripheral smear, reticulocyte count, PT, PTT, iron profile, CMP, lactate - 3. Chronic atrial flutter/Atrial fibrillation Patient with rapid AFib, metoprolol discontinued, this likely precipitated his atrial fibrillation Will resume his usual metoprolol at this time 4. Essential hypertension, chronic, stable, not present on admission -patient present blood pressure 117/59. - 5.. Hyperlipidemia, chronic, stable, not present on admit -Will continue patient's home regimen of atorvastatin 20 mg daily. 6. COPD with restrictive lung disease, chronic, stable, not present on image -patient denies shortness of breath, oxygen saturation room air is 95%. -will monitor respirations with continuous pulse ox. VTE prophylaxis:Contraindicated with GI bleed- pt changed to Eliquis 5mg BID Diet: Heart healthy low-sodium Code status: Full code Surrogate decision maker: daughter Medina to be his surrogate decision maker. Quality VTE Deep Vein Thrombosis/Pulmonary Embolism Present on Admission: No
--- NOTE | 2021-01-28 19:10 | PC.NURSE ---
Addendum entered by Nicole Nath R.N. 01/28/21 22:49: Resting quietly in bed with eyes closed. Scd's have been removed for sleep and to prevent any further agitation. Bed alarm and frequent monitoring by staff. Tele in place and iv fluids infusing as ordered to left ac site without difficulty. Addendum entered by Nicole Nath R.N. 01/28/21 20:28: Pt now profoundly confused and agitated. Wants to go to own room and get cannibis. Pt was reoriented multiple times by multiple staff members. Was given po ativan to calm pt so pt can rest overnight. Soft lighting in room, bed alarm in place and frequent attempts by staff to assist pt with television, room temp. etc. Original Note: Pt is confused and Dr. Porter is aware. MD in to see patient and aware of pt's HR 138. Pt was given po metoprolol as per emar as well as iv cardizem slow push over 5 minutes. ICU was made aware of this push and monitoring. BP post cardizem administration 120/65 with HR [address] Porter was made aware. Pt is oriented to person and date of only. Requires frequent reorientation and explanations for interventions and care. NIH = zero at this time as pt's baseline is confusion pt was not docked points for disorientation.
[2021-01-28] MEDS: LORazepam 1 MG TABLET PO (19:59)
[2021-01-28] MEDS: ATORVASTATIN 20 MG TABLET PO (19:59)
[2021-01-28] MEDS: DONEPEZIL 5 MG TABLET PO (20:04)
[2021-01-29] VITALS (11 sets, daily range): BP systolic 106–157; BP diastolic 58–91; PULSE 70–145; RESP 18–20; TEMP 36.2–36.8; O2SAT 94–97
--- NOTE | 2021-01-29 03:41 | PC.NURSE ---
Pt. back to sleep now, DANCE COSTUME DESIGNER reported he got up OOB earlier & she reported patient was unsteady on his feet. He was medicated with 1 mg. of Lorazepam PO @ HS. When I assessed him @ 0035, he opened his eyes for a few seconds & he falls back to sleep. NIH assessment was deferred @ that time. Will assess NIH when he wakes up, will cont. POC & monitor.
[2021-01-29 05:19] LABS: Add Manual Diff / Slide Review NO; Basophils Absolute Auto 100 /uL (0-100); Basophils Percent Auto 0.7 % (0-2); Eosinophils Absolute Auto 0 /uL (0-450); Eosinophils Percent Auto 0.5 % (2-4); Hemoglobin 13.5 g/dL (13.5-17.5); Lymphocytes Absolute Auto 800 /uL (1100-4500); Lymphocytes Percent Auto 8.8 % (25-40); Mean Corpuscular Hemoglobin 30.1 PG (26-34); Mean Corpuscular Volume 91.3 fL (80-100); Monocytes Absolute Auto 800 /uL (0-900); Monocytes Percent Auto 9.1 % (3-14); Neutrophils Absolute Auto 7400 /uL (1500-7000); Neutrophils Percent Auto 80.9 % (50-75); Platelet Count 193 X10^3/uL (150-400); Red Blood Cell Count 4.49 X10^6/uL (4.5-5.9); Red Cell Distribution Width 12.9 % (11.6-14.8); White Blood Cell Count 9.2 X10^3/uL (4.5-11.0)
[2021-01-29 05:33] LABS: INR 1.2 (0.9-1.3); Prothrombin Time 13.5 SECONDS (10.1-12.7)
--- NOTE | 2021-01-29 09:24 | OT.IP.TRT ---
Occupational Therapy Treatment Note M2 OT-IP Current Condition Start: 01/28/21 13:10 Freq: Status: Active Protocol: Document 01/28/21 13:10 [facility] (Rec: 01/28/21 13:29 [facility] [id number]) Occupational Therapy Current Condition Current Condition Evaluation Date 01/28/21 Treatment Diagnosis GI BLeed/ possible TIA/CVA Diagnosis Onset Date 01/27/21 M3 OT- IP Subjective and Pain Start: 01/28/21 13:10 Freq: Status: Active Protocol: Document 01/29/21 09:31 [facility] (Rec: 01/29/21 09:47 [facility] [id number]) OT- Subjective Occupational Therapy Visit Type Type Treatment Note Visit Start Time 08:52 Visit Stop Time 09:24 Total Visit Minutes 32 Occupational Therapy Visit Comments Patient Comments Pt agreed to shower. Patient/Caregiver Goals To go home. OT Pain Assessment Pain When Pain Assessed At Rest Pain Present Pain Present Denied Pain M4 OT- IP ADL's Start: 01/28/21 13:10 Freq: Status: Active Protocol: Document 01/29/21 09:31 [facility] (Rec: 01/29/21 09:47 [facility] [id number]) OT [id number] Comments OT Self-Feeding Comments NOt at meal time. OT ADL-Dressing General Eval Lower Body Dressing Ability Contact Guard Assistance Comments OT Dressing Comments CGA for balance while pt donning underwear while standing due to loss of balance. OT ADL-Toileting Comments OT Toileting Comments Pt not having to use the bathroom at the time. OT ADL-Bathing Bathing Type Bathing Type Shower General Evaluation Bathing Ability Standby Assistance Devices Bathing Equipment Hand Held Shower Sprayer, Shower Chair with Arms,Grab Bars Comments OT Bathing Comments SBA for safety for balance while standing and cues for how to moderate the water temperature. Pt would greatly benefit from a shower chair and hand held shower spray at home to use for safety. M5 OT- IP IADL's Start: 01/28/21 13:10 Freq: Status: Active Protocol: Document 01/29/21 09:31 [facility] (Rec: 01/29/21 09:47 [facility] [id number]) OT-Instrumental Activities of Daily Living Home Safety Awareness Awareness of Need for Assistance at Home Decreased Awareness Home Safety Comments Due to pt's decreased short term memory would be best for pt to have supervision for iADL needs. M6 OT- IP Functional Cognition Start: 01/28/21 13:10 Freq: Status: Active Protocol: Document 01/29/21 09:31 [facility] (Rec: 01/29/21 09:47 [facility] [id number]) Cognitive Factors Limiting Selfcare Function Cognitive Ability Level of Alertness Alert Patient Orientation Name Attention Span Ability Capable of Focused Attention, Capable of Sustained Attention Ability to Follow Commands Able to Follow One Step Commands Memory Description Short Term Impaired,Fdc Impaired Safety Awareness Underestimates Need for Assistance Problem Solving Ability Unable to Identify Errors, Needs Assist to Identify Solutions Cognitive Comments Cognitive Assessment Comments Pt did not know how to figure out which way to turn on the water for the correct temperature even when giving pt cues. Pt not able to figure out that red color and the letter H means hot, and that the blue color and letter C mean cold. Pt however able to problem solve not to put his socks on in the shower as the shower eber was still wet. Pt also able to figure out to sit down in order to was his feet. Pt did not recall that he was wearing a heart monitor . M7 OT- IP Mobility and Balance Start: 01/28/21 13:10 Freq: Status: Active Protocol: Document 01/29/21 09:31 [facility] (Rec: 01/29/21 09:47 [facility] [id number]) OT- Bed Mobility Assessment Rolling Type of Rolling Roll to Right Level of Assistance Independent Supine to Sit Supine to Sit Assist Independent Sit to Supine Sit to Supine Assist Independent OT-Transfer Assessment Sit to and From Stand Sit to and from Stand Standby Assistance Transfers Transfer Ability Standby Assistance Technique Transfer Destination Bed,Chair Transfer Technique Stand Step Pivot Devices Transfer Assistive Devices None Comments Mobility Comments SBA for level surfaces in the room. CGA for dynamic balance, pt lost his balance while trying to take off his brief while standing. OT- Balance Assessment Sitting Balance and Reactions Static Sitting Balance Ability Normal Dynamic Sitting Balance Ability Good Standing Balance and Reactions Static Standing Balance Ability Good Dynamic Standing Balance Ability Fair M8 OT- IP Objective Assessments Start: 01/28/21 13:10 Freq: Status: Active Protocol: Document 01/28/21 13:10 [facility] (Rec: 01/28/21 13:29 [facility] [id number]) OT Gross Range of Motion Upper Extremity Range of Motion Assessment Within Functional Limits OT Strength Upper Extremity Strength Assessment Within Functional Limits OT- Coordination Assessment Upper Extremity Finger to Nose Test Within Functional Limits Comments Coordination Comments Right hand 9 hole peg 90%, left hand improved from 50%- 75% from last admissions. M9 OT- IP Assessment and Plan Start: 01/28/21 13:10 Freq: Status: Active Protocol: Document 01/29/21 09:31 [facility] (Rec: 01/29/21 09:47 [facility] [id number]) OT Summary Assessment and Plan Potential Rehabilitation Potential Good Analytic Complexity at Evaluation Low Summary OT Impairments Coordination,Functional Cognition,Functional Mobility, Bathing Progress Towards Goals Progressing Toward Goals Assessment Summary Pt able to participate in a shower today however needing cues for safety and to help figure out how to adjust the water temperature and to recall if he had already washed his hair. Pt would benefit from supervision/ assist at home and outpt PT for dynamic balance needs. Goals Grooming Goal Independent Dressing Goal Independent Toileting Goal Independent Bathing Goal Independent Toilet Transfer Goal Independent Shower Transfer Goal Independent Days to Meet Goals 5 Frequency of Treatment Frequency Of Treatment Once a Day Treatment Plan OT Treatment Plan ADL Training,Functional Cognition Training,Functional Mobility,Patient/Family Education,Discharge Planning Discharge Recommendations OT Discharge Recommendations Home with 23/05 Assist Available Home Equipment Needs shower chair Transportation Needs at Discharge Private Vehicle
--- NOTE | 2021-01-29 09:56 | PT.IPTN ---
Physical Therapy Treatment Note M2 PT-IP Current Condition Start: 01/28/21 11:59 Freq: NEEDED Status: Active Protocol: Document 01/28/21 10:51 [facility] (Rec: 01/28/21 12:41 AB [id number]) Physical Therapy Current Condition Current Condition Evaluation Date 01/28/21 Treatment Diagnosis A-fib; weakness; difficulty in walking Onset Date 01/27/21 Precautions Other Precautions falls M3 PT-IP Subjective Start: 01/28/21 11:59 Freq: NEEDED Status: Active Protocol: Document 01/29/21 09:56 [facility] (Rec: 01/29/21 11:45 AB [email or web address]) Subjective Physical Therapy Visit Type Type Progress Note Visit Start Time 09:56 Visit Stop Time 10:11 Total Visit Minutes 15 Number of LOOM OVERHAULER Visits 0 Physical Therapy Visit Comments Patient Comments pt is agreeable to do PT; continues to have memory deficits and does not remember what happened yesterday Therapy Pain Assessment Pain Present Pain Present Denied Pain M4 PT-IP Mobility and Gait Start: 01/28/21 11:59 Freq: NEEDED Status: Active Protocol: Document 01/29/21 09:56 [facility] (Rec: 01/29/21 11:45 AB [email or web address]) PT-Bed Mobility Assessment Supine to Sit Supine to Sit Independent Sit to Supine Sit to Supine Independent PT-Transfer Assessment Sit to and From Stand Sit to and from Stand Standby Assistance Equipment Transfer Assistive Device None,Gait Belt Orthotic/Prosthetic Devices or Brace: No Transfers Transfer Destination Chair Transfer Technique ambulated without AD Transfer Ability Level of Assist Standby Assistance Comments Mobility Comments completed supine to sit mod I. pt ambulated in the hallway ~ 250 ft without AD SBA. pt with unsteady gait but better than yesterday and did not have any LOB. Tinetti balance assessment conducted: bal score: gait score: 07/12 total score of which relates to low fall risk. Gait Assessment Gait Gait Assistance Required: Standby Assistance Distance (Feet) 250 Able to Maintain Weight Bearing Status Yes During Gait Assistive Devices Assistive Device None,Gait Belt Orthotic/Prosthetic Devices or Brace: No Gait Deviations General Gait Pattern Antalgic Factors Limiting Gait Function Factors Limiting Gait Function Decreased Activity Tolerance, Difficulty Following Directions,Poor Balance,Poor Safety Awareness Functional Assessments Functional Tests Tinetti Balance and Gait Assessment bal: gait: 07/12 total of : low fall risk M5 PT-IP Objective Assessments Start: 01/28/21 11:59 Freq: NEEDED Status: Active Protocol: Document 01/28/21 10:51 [facility] (Rec: 01/28/21 12:41 AB [email or web address]) Orientation Orientation/Cognition Level of Alertness Alert Orientation Name Language Function Ability No Deficits Noted Safety Awareness Decreased Safety Awareness Memory Description Short Term Impaired,Half-Way Impaired Gross Range of Motion Lower Extremity ROM Assessment Within Functional Limits Strength Lower Extremity Strength Hip 4-/5 Knee 4-/5 Sensation Assessment Sensation Gross Sensation WNL Muscle Tone Muscle Tone WNL Yes M6 PT-IP Treatment Start: 01/28/21 11:59 Freq: NEEDED Status: Active Protocol: Document 01/29/21 09:56 [facility] (Rec: 01/29/21 11:45 AB [email or web address]) Physical Therapy Treatment Education Education Provided Safety M7 PT-IP Assessment and Plan Start: 01/28/21 11:59 Freq: NEEDED Status: Active Protocol: Document 01/29/21 09:56 [facility] (Rec: 01/29/21 11:45 AB [email or web address]) PT Summary Assessment and Plan Potential Rehabilitation Potential Good Summary Impairments Pain,ROM,Strength,Balance, Coordination,Sensation,Tone, Cognition,Bed Mobility, Transfers,Gait,Activity Tolerance Progress Towards Goals Slow Progress - Other Assessment Summary pt improved with standing balance and ambulation and is steadier with ambulation today compared to yesterdays but continues to require cues for safety and slowing down. pt continues to have cognitive issues affecting safety awareness and will need assistance at home. Goals Transfer Goal Independent Gait Goal Independent Gait Distance 250 Days to Meet Goals 3 Frequency of Treatment Frequency Of Treatment Once a Day Treatment Plan Physical Therapy Treatment Plan Bed Mobility Training,Transfer Training,Gait Training, Therapeutic Exercise,Balance Retraining,Discharge Planning, Neuromuscular Re-ed, Coordination Retraining Precautions Other Precautions falls Recommendations To Nursing Amount of Assist Needed Standby Assistance Discharge Recommendations PT Discharge Recommendations Home with Assistance, Outpatient PT Transportation Needs at Discharge Private Vehicle
[2021-01-29] MEDS: PANTOPRAZOLE 40 MG VIAL IV ×2 (10:00→20:07)
[2021-01-29] MEDS: FERROUS SULFATE 325 MG TABLET PO (10:00)
[2021-01-29] MEDS: METOPROLOL ER 50 MG TABLET 100 MG PO ×2 (10:00→20:07)
--- NOTE | 2021-01-29 11:42 | CM.DPC ---
DCP Cont: Contacted patient's daughter, Alyssa, for [place]'s line was busy. Confirmed that patient is confused at his baseline. He just stopped driving approximately 2 weeks ago. Patient does live alone, is his choice, but Alyssa and her sister are considering installing cameras in her home so they can monitor him. Asked her about home health, and she mentioned, her dad is a very private person, and will only allow me and my sister in his home. Asked her if her primary care provider had diagnosed him with dementia, and she stated, she's not sure, but he should be. Confirmed that when patient is discharged, her sister, Medina, can pick him up. When this senior materials planner originally asked patient about who was picking him up, he indicated, I don't know, my daughter works. P: DCP to continue to follow. Patient will discharge home when he is medically stable. Lorrie Mercado, RN/Electronics Processor
[2021-01-29] MEDS: dilTIAZem 30 MG TABLET PO (13:20)
--- NOTE | 2021-01-29 15:56 | PC.NURSE ---
PT A& Ox2, forgetful. With choices remembers year and president. HR 120's-140's this shift. Denies feeling CP, palpitations, ARMENTA, n/v or dizziness with ambulation. Ambulating with steady gait. Diltiazem 30mg administered this afternoon HR down to 110's. Discussed with MD García. Plan to increase dose today. Tele aferik flutter. Continuous monitoring. Plan of care with MD discussed with daughter this [facility] at [facility].
--- NOTE | 2021-01-29 16:57 | PM.PN.1 ---
Subjective Subjective Date Patient Seen: 01/29/21 Time Patient Seen: 16:57 Interval history: Patient is an 85-year-old male who was admitted to the hospital yesterday for left-sided weakness, unable to obtain MRI testing. He has remained admitted for afib with RVR. His rate was controlled this morning but during the early afternoon his heart rate returned into the 130s. It improved into the low 100s with oral diltiazem. He is asymptomatic during these episodes but rate is still uncontrolled at this time. Will continue to adjust medications and add diltiazem as his current dose of metoprolol is quite high and he has a recent echocardiogram with normal ejection fraction. Exam Vital Signs (past 8 hours): - 01/29/21 09:00 01/29/21 10:00 01/29/21 11:00 Temperature 97.3 F L Pulse Rate 70 70 70 Pulse Rate [Orthostatic Lying] Pulse Rate [Orthostatic Sitting] Pulse Rate [Orthostatic Standing] Respiratory Rate 20 Blood Pressure 139/70 139/70 139/70 Blood Pressure [Orthostatic Lying] Blood Pressure [Orthostatic Sitting] Blood Pressure [Orthostatic Standing] Pulse Oximetry 94 01/29/21 13:00 01/29/21 13:20 01/29/21 16:10 Temperature 98.2 F 97.6 F Pulse Rate 116 H 129 H 111 H Pulse Rate [Orthostatic Lying] 111 H Pulse Rate [Orthostatic Sitting] 116 H Pulse Rate [Orthostatic Standing] 131 H Respiratory Rate 18 20 Blood Pressure 143/73 H 116/72 126/66 Blood Pressure [Orthostatic Lying] 126/66 Blood Pressure [Orthostatic Sitting] 117/73 Blood Pressure [Orthostatic Standing] 113/69 Pulse Oximetry 96 Oxygen Delivery Method Room Air Oxygen Flow Rate 0 Narrative Exam Narrative: GENERAL APPEARANCE: well developed, well nourished, in no acute distress. HEENT: Symmetrical facies, no ptosis, PERRLA, conjunctiva clear, sclera is anicteric, EOMs intact without nystagmus, no sinus tenderness to percussion, no rhinorrhea, edentulous with upper and lower dentures, mucous membranes are moist and pink. NECK/THYROID: neck supple, no JVD, no carotid bruit, no thyromegaly, trachea midline. LYMPH NODES: no cervical or supraclavicular lymphadenopathy. SKIN: [place], warm and dry, no visible lesions, rashes, ulcerations or petechiae. HEART: Irregularly irregular rhythm with tachycardic rate S1-S2, no murmur, no rubs or gallops, 2+ dorsalis pedis pulses,, no peripheral edema LUNGS: clear to auscultation bilaterally, no coarseness crackles or wheezing, no cough present CHEST: Symmetrical movement, no accessory muscle use, good tidal volume no pain on AP and lateral compression.. ABDOMEN: Soft, no distention, no abdominal tenderness, no guarding or peritoneal signs, no organomegaly, no flank or suprapubic tenderness, active bowel tones. BACK: Normal curvature, nontender to palpation. EXTREMITIES: moves all extremities, strength is 5/5 and symmetrical, no deformities or joint effusions. NEUROLOGIC: AAO x 3 with short term memory impairment and cognitive impairment. cranial nerves II-XII grossly intact, no lateralizing symptoms, no ataxia, sensation intact to light touch, hearing grossly normal to speech. PSYCH: Good eye contact, cooperative, stable behavior Objective Labs Result Diagrams: 01/29/21 05:00 01/27/21 11:00 Labs: Laboratory Results - last 24 hr 01/29/21 01/29/21 05:00 05:00 WBC 9.2 RBC 4.49 L Hgb 13.5 Hct 41.0 MCV 91.3 MCH 30.1 MCHC 33.0 RDW 12.9 Plt Count 193 Neut % (Auto) 80.9 H Lymph % (Auto) 8.8 L [place] % (Auto) 9.1 Eos % (Auto) 0.5 L Baso % (Auto) 0.7 Neut # (Auto) 7400 H Lymph # (Auto) 800 L [place] # (Auto) 800 Eos # (Auto) 0 Baso # (Auto) 100 PT 13.5 H INR 1.2 PFSH Medical History Acquired arteriovenous malformation of stomach Aortic valvular stenosis Atrial fibrillation Cholelithiasis Chronic obstructive pulmonary disease Fatigue Gallstone pancreatitis Generalized anxiety disorder History of gastrointestinal hemorrhage History of tobacco abuse Hyperlipidemia Hypertension Restrictive lung disease Rheumatoid arthritis Surgical History H/O sinus surgery History of aortic valve replacement History of colonoscopy History of esophagogastroduodenoscopy (EGD) History of sinus surgery History of tonsillectomy History of tricuspid valve annuloplasty Status post mitral valve annuloplasty Family History Father Heart disease Hypertension Mother Heart disease Sister Heart disease Cancer Social History household members: none Smoking Status: Former smoker Tobacco: How many years used: 60 alcohol intake: former substance use type: does not use Assessment & Plan Assessment & Plan narrative: 1. Acute neurological deficit, possible TIA versus CVA, acute, present on admission, resolved -patient with focal left upper and lower extremity numbness in flaccidity which is resolved spontaneously prior to ED. Patient denies developing specific expressive aphasia symptoms but does complain of persistent word-finding difficulty.Given his history of valve replacement he cannot have an MRI. ED :Patient's left leg actually improved while in the emergency department. Upon re-evaluation he was able to lift it without any difficulty. He has now had at least 3 episodes in 1 week. He has been on Plavix supposedly for the last 5 days since his last episode. He had a full workup within the week. Patient is unable to provide any coherent history. Given his history of atrial fibrillation he clearly is at risk for an acute embolic event. However the patient has had multiple AVMs in the past although none recently. Discussed his care with Dr. Leone. He recommended and agreed with not starting anticoagulation. Patient will continue on Plavix at this time. -patient admitted for observation Patient has dementia, he is quite confused at this time, given his ongoing dementia would defer anticoagulation again. Continue prior asa and plavix for 21 days. 2. Chronic atrial flutter/Atrial fibrillation with rapid ventricular response. Patient with rapid AFib, metoprolol discontinued, this likely precipitated his atrial fibrillation Have resumed home metorpolol, rate still uncontrolled, will add diltiazem starting today. He is asymptomatic with his uncontrolled rate. 4. Essential hypertension, chronic, stable, not present on admission - continue rate control agents at this time, hold lisinopril. Blood pressures currently low-normal. 5.. Hyperlipidemia, chronic, stable, not present on admit -Will continue patient's home regimen of atorvastatin 20 mg daily. 6. COPD with restrictive lung disease, chronic, stable, not present on image - continue home medications, albuterol prn. Diet: Heart healthy low-sodium Code status: Full code Surrogate decision maker: daughter Medina to be his surrogate decision maker. COVID-19 COVID-19 status: Negative Quality VTE Deep Vein Thrombosis/Pulmonary Embolism Present on Admission: No
--- NOTE | 2021-01-29 18:41 | PC.NURSE ---
Addendum entered by Nicole Nath R.N. 01/29/21 20:52: Pt was given lorazepam this evening shift to aid with sleep and to manage pt's anxiety. Last evening pt became very confused and agitated. Proactive to keep pt calm, comfortable and restful. Original Note: Pt awake and alert lying in bed. Daughter, Medina, visited earlier this shift and had conversation with Dr. Carrillo. Pt is cooperative, alert and appropriate. Engages in pertinent conversation. Oriented to person and date of . Demonstrates slight drift to left arm and left leg, but has baseline dementia so is not completely oriented to place and situation/month, day of the week, but knows year is 2020. Reinforced to pt need for iv when pt requests to have this removed. Tele in place with heartrate per monitor 79 bpm. Pt denies pain. Heartrate regular per auscultation. Bed alarm in place for pt's safety.
[2021-01-29] MEDS: DONEPEZIL 5 MG TABLET PO (20:06)
[2021-01-29] MEDS: dilTIAZem SR 60 MG PO (20:06)
[2021-01-29] MEDS: ATORVASTATIN 20 MG TABLET PO (20:06)
[2021-01-29] MEDS: LORazepam 1 MG TABLET PO (20:06)
[2021-01-29] MEDS: SODIUM CHLORIDE 0.9% FLUSH 10 ML IV (20:07)
[2021-01-30 00:10] VITALS: BP 123/69; BP 133/65; BP 139/70; PULSE 70; PULSE 71; PULSE 73; RESP 18; TEMP 36.3; O2SAT 96
[2021-01-30 05:40] VITALS: BP 132/73; PULSE 71; RESP 18; TEMP 36.2; O2SAT 97
[2021-01-30 06:00] LABS: INR 1.1 (0.9-1.3); Prothrombin Time 12.8 SECONDS (10.1-12.7)
[2021-01-30 06:01] LABS: Add Manual Diff / Slide Review NO; Basophils Absolute Auto 100 /uL (0-100); Basophils Percent Auto 0.5 % (0-2); Eosinophils Absolute Auto 100 /uL (0-450); Hematocrit 42.6 % (41-53); Hemoglobin 13.9 g/dL (13.5-17.5); Lymphocytes Absolute Auto 1200 /uL (1100-4500); Lymphocytes Percent Auto 11.6 % (25-40); Mean Corpuscular HGB Conc 32.7 % (30-36); Mean Corpuscular Hemoglobin 30.2 PG (26-34); Mean Corpuscular Volume 92.3 fL (80-100); Monocytes Absolute Auto 1000 /uL (0-900); Monocytes Percent Auto 9.5 % (3-14); Neutrophils Absolute Auto 8300 /uL (1500-7000); Neutrophils Percent Auto 77.4 % (50-75); Platelet Count 220 X10^3/uL (150-400); Red Blood Cell Count 4.61 X10^6/uL (4.5-5.9); White Blood Cell Count 10.8 X10^3/uL (4.5-11.0)
[2021-01-30 07:20] VITALS: BP 140/62; BP 145/74; BP 148/68; PULSE 72; PULSE 78; PULSE 80; RESP 16; TEMP 37.1; O2SAT 95
[2021-01-30 10:00] VITALS: BP 132/73; PULSE 71
[2021-01-30] MEDS: METOPROLOL ER 50 MG TABLET 100 MG PO (10:00)
[2021-01-30] MEDS: CLOPIDOGREL 75 MG TABLET PO (10:00)
[2021-01-30] MEDS: FERROUS SULFATE 325 MG TABLET PO (10:00)
[2021-01-30] MEDS: SODIUM CHLORIDE 0.9% FLUSH 10 ML IV (10:00)
[2021-01-30] MEDS: PANTOPRAZOLE 40 MG VIAL IV (10:00)
--- NOTE | 2021-01-30 10:39 | DIET.PN ---
Dietary Progress Note Assessment: 85y M admitted for weakness and possible TIA referred to nutrition for decreased appetite and reported 10# weight loss. Pt lives alone and is private person so resistant to home health, checked on by daughters frequently. Pt has dementia c short term memory impairment. Per [facility] records and confirmed by SALES SERVICE TECHNICIAN pt has not lost weight and is 1kg heavier than his UBW over the past 3y. Pt consuming 100% meal trays this stay. Suspect pts reported decrease appetite secondary to memory issues. Recc pt have more structured meal time environment c frequent cues for eating and hydration. Also concerns for food safety and fire/electrical safety in home secondary to reduced situational awareness. HT: 182.8cm WT: 85.3kg UBW: 79-84kg x3y per [facility] records BMI: 25.5 Labs: A1c 5.5 Nutrition Diagnosis: none at this time. Diet Order: HH
[2021-01-30 11:09] VITALS: BP 124/90; PULSE 140
[2021-01-30 12:02] VITALS: BP 131/83; PULSE 148
[2021-01-30] MEDS: dilTIAZem 5 MG/ML SDV 10 MG IV (12:02)
--- NOTE | 2021-01-30 12:37 | P.DS_ITS ---
History of Present Illness History of Present Illness Date Patient Seen: 01/30/21 Time Patient Seen: 12:38 Chief complaint: weakness Narrative: Per Zee Maciel, ARCHITECTURE MANAGER-: Patient is an 85-year-old male Marvin Diaz who presents to the ED today with a chief compliant of GI bleed and left-sided neurologic symptoms. Patient has a history of atrial flutter, atrial fibrillation, aortic stenosis, COPD, gastric AVM with GI bleed in the past. He says he went to bed normal last evening woke up around midnight and noticed that he had some left arm shaking. He talked to his daughter this morning who recommended he go to the emergency department. He was actually admitted for TIA January 21 through the for the same. He actually had 2 episodes both involving the left side at that time. He has history of valve replacement and cannot have an MRI and due to his GI bleeding on able to take full anticoagulation. Plavix was added for risk reduction over the next 21 days. Upon admit to the floor patient denies any further signs or symptoms or weakness, or speech difficulties. He does report that he feels worsened fatigue than his hospitalization on 01/21/21-01/22/21, and still finding it very difficult to think and then express himself he notes fair amount of memory loss in general but is possibly his base line. Patient does not recall that he came in for chief complaint of GI bleed, and denies GI bleeding. Patient notes that his last symptoms of weakness resolved prior to ED and have not reoccurred since being in the hospital. Patient denies any pain numbness tingling chest pain shortness of breath weakness or vertigo. Patient's vitals upon admit temp 97.7?, BP 138/66, HR 69, RR 18, O2 saturation 98% on room air. Patient's labs all within limits including a negative troponin. EKG:Atrial flutter rate [address] changes similar to previous EKG. CTA:No acute process involving the arterial tree of the head neck. No significant change compared to 01/21/2021. Mild bilateral internal carotid artery stenosis. Bilat eral thyroid nodules, which could be further assessed with nonemergent outpatient follow-up ultrasound examination, if clinically indicated. Emphysema. Head CT:No acute intracranial abnormalities. Cerebral volume loss and chronic microvascular ischemic changes.Echo 01/21/2021: EF 50-55% ED Consult- :[address] Almanza, neurology, updated him on patient's history recent admission in current symptoms requesting for guidance on treatment. He agreed with Plavix but thought symptoms would have stabilized after 5 days. Recommend platelet function testing. Also suggested possible hypoperfusion perhaps too many blood pressure medications possible BP goal in the 150s Brilinta may be an option. However without seeing the patient in reviewing all things difficulty make recommendations. He was unsure if GI bleeding had been corrected. 1330 , patient's primary care provider updated on patient's current symptoms. And Neurology recommendations. He states that AVMs have been repaired in 2018 & 2016 following an epi injections by EGD. He thought it would be okay to start Eliquis on patient a but preferred patient be admitted to the hospital and monitored for bleeding. Patient may be a candidate for Watchman however he will need to be anticoagulated prior to that. 01/22/21 Dr. Carrillo D/C Summary:Hospital Course: This is an 85-year-old male patient with a past medical history significant for atrial fibrillation, atrial flutter, aortic stenosis (s/p AVR), COPD with restrictive lung disease, gastric AVM with history of GI bleed, hypertension, hyperlipidemia and rheumatoid arthritis who presented to the ER with recurrent left arm numbness and flaccidity that has resolved but persistent mild expressive aphasia. He had minimal deficits with word-finding. No evidence of acute infarct was found on CT imaging. Given his history of valve replacement he cannot have an MRI. These incidents are suspected in the setting of atrial flutter, which is known, however the patient is unable to take full anticoagulation due to a prior history of a gastric AVM. Plavix was added for risk reduction over the next 21 days, given his CT angiogram did show some small vessel disease. No other medication changes were necessary, and his blood pressure was controlled on his usual home medications. Discharge Providers Provider Date of admission: 01/27/21 14:11 Discharge Date: 01/30/21 Primary care physician: Koby Leone MD Consults: 01/27/21 16:16 Consult to Dietitian, Adult Routine Comment: Reason For Exam: wt loss greater than 10lb decrease appetite 01/27/21 19:51 Consult to Discharge Planning Routine Comment: Consult to Occupational Therapy Evaluate & Treat Comment: weakness Physician Instructions: Evaluate and treat Consult to Physical Therapy Evaluate & Treat Comment: weakness Physician Instructions: Evaluate and Treat Consult to Speech Therapy Evaluate & Treat Comment: weakness Physician Instructions: Evaluate and treat Discharge provider: Liang Carrillo DO Summary Hospital Course Discharge Diagnosis: Please see hospital course by problem list noted below. Hospital Course: 1. Acute neurological deficit, possible TIA versus CVA, acute, present on admission, resolved -patient with focal left upper and lower extremity numbness in flaccidity which is resolved spontaneously prior to ED. Patient denies developing specific expressive aphasia symptoms but does complain of persistent word-finding difficulty.Given his history of valve replacement he cannot have an MRI. He was continued on asa and plavix which will continue for his prescribed 21 days. 2. Chronic atrial flutter/Atrial fibrillation with rapid ventricular response. Patient had a prolonged stay due to uncontrolled rapid ventricular response. He was slowly advanced on his home metoprolol and diltiazem, with improvement in his rate once he was on his home dosing which is maximum amounts of metoprolol and diltiazem. The patient remained asymptomatic despite his rapid rate and his blood pressure remained stable. -repeat echocardiogram, limited, did not show any significant changes compared to prior. 4. Essential hypertension, chronic, stable, not present on admission - continue rate control agents at this time, held lisinopril during admission but this can be resumed as an outpatient as his blood pressures did improve. 5.. Hyperlipidemia, chronic, stable, not present on admit -Will continue patient's home regimen of atorvastatin 20 mg daily. 6. COPD with restrictive lung disease, chronic, stable, not present on image - continue home medications, no changes are recommended upon discharge. Exam Vital Signs (past 8 hours): - 01/30/21 05:40 01/30/21 07:20 01/30/21 10:00 Temperature 97.2 F L 98.7 F Pulse Rate 71 72 71 Pulse Rate [Orthostatic Lying] 72 Pulse Rate [Orthostatic Sitting] 80 Pulse Rate [Orthostatic Standing] 78 Respiratory Rate 18 16 Blood Pressure 132/73 145/74 H 132/73 Blood Pressure [Orthostatic Lying] 145/74 H Blood Pressure [Orthostatic Sitting] 148/68 H Blood Pressure [Orthostatic Standing] 140/62 Pulse Oximetry 97 95 01/30/21 11:09 01/30/21 12:02 Temperature Pulse Rate 140 H 148 H Pulse Rate [Orthostatic Lying] Pulse Rate [Orthostatic Sitting] Pulse Rate [Orthostatic Standing] Respiratory Rate Blood Pressure 124/90 131/83 Blood Pressure [Orthostatic Lying] Blood Pressure [Orthostatic Sitting] Blood Pressure [Orthostatic Standing] Pulse Oximetry Oxygen Delivery Method Room Air Oxygen Flow Rate 0 Narrative Exam Narrative: GENERAL APPEARANCE: well developed, well nourished, in no acute distress. HEENT: Symmetrical facies, no ptosis, PERRLA, conjunctiva clear, sclera is anicteric, EOMs intact without nystagmus, no sinus tenderness to percussion, no rhinorrhea, edentulous with upper and lower dentures, mucous membranes are moist and pink. NECK/THYROID: neck supple, no JVD, no carotid bruit, no thyromegaly, trachea midline. LYMPH NODES: no cervical or supraclavicular lymphadenopathy. SKIN: [place], warm and dry, no visible lesions, rashes, ulcerations or petechiae. HEART: Irregularly irregular rhythm with normal rate S1-S2, no murmur, no rubs or gallops, 2+ dorsalis pedis pulses,, no peripheral edema LUNGS: clear to auscultation bilaterally, no coarseness crackles or wheezing, no cough present CHEST: Symmetrical movement, no accessory muscle use, good tidal volume no pain on AP and lateral compression.. ABDOMEN: Soft, no distention, no abdominal tenderness, no guarding or peritoneal signs, no organomegaly, no flank or suprapubic tenderness, active bowel tones. BACK: Normal curvature, nontender to palpation. EXTREMITIES: moves all extremities, strength is 5/5 and symmetrical, no deformities or joint effusions. NEUROLOGIC: AAO x 3 with short term memory impairment and cognitive impairment. cranial nerves II-XII grossly intact, no lateralizing symptoms, no ataxia, sensation intact to light touch, hearing grossly normal to speech. PSYCH: Good eye contact, cooperative, stable behavior Objective Labs Result Diagrams: 01/30/21 05:25 01/27/21 11:00 Labs: Laboratory Results - last 24 hr 01/30/21 01/30/21 05:25 05:25 WBC 10.8 RBC 4.61 Hgb 13.9 Hct 42.6 MCV 92.3 MCH 30.2 MCHC 32.7 RDW 13.0 Plt Count 220 Neut % (Auto) 77.4 H Lymph % (Auto) 11.6 L [place] % (Auto) 9.5 Eos % (Auto) 1.0 L Baso % (Auto) 0.5 Neut # (Auto) 8300 H Lymph # (Auto) 1200 [place] # (Auto) 1000 H Eos # (Auto) 100 Baso # (Auto) 100 PT 12.8 H INR 1.1 PFSH Medical History Acquired arteriovenous malformation of stomach Aortic valvular stenosis Atrial fibrillation Cholelithiasis Chronic obstructive pulmonary disease Fatigue Gallstone pancreatitis Generalized anxiety disorder History of gastrointestinal hemorrhage History of tobacco abuse Hyperlipidemia Hypertension Restrictive lung disease Rheumatoid arthritis Surgical History H/O sinus surgery History of aortic valve replacement History of colonoscopy History of esophagogastroduodenoscopy (EGD) History of sinus surgery History of tonsillectomy History of tricuspid valve annuloplasty Status post mitral valve annuloplasty Family History Father Heart disease Hypertension Mother Heart disease Sister Heart disease Cancer Social History household members: none Smoking Status: Former smoker Tobacco: How many years used: 60 alcohol intake: former substance use type: does not use Discharge Plan Discharge Plan Patient Disposition: Home Provider Discharge Comment: You were admitted to the hospital for Left sided weakness which resolved. Unable to perform MRI. Your heart rate was elevated, but you were asymptomatic and this improved with resumption of your home medications. Continue your usual metoprolol and diltiazem at home. Please follow up with your PCP and cna hha for other possible rate control options if your heart rate gets high again. Discharge orders & Medications Prescriptions: New clopidogrel 75 mg Tablet 75 mg PO DAILY 13 Days Qty: 13 RF: 0 Continued atorvastatin [Lipitor] 20 MG tablet 20 mg PO BEDTIME Qty: 0 RF: 0 lorazepam 1 MG tablet 1 mg PO DAILY PRN (Reason: Anxiety) Qty: 0 RF: 0 ascorbic acid (vitamin C) [Vitamin C] 500 mg Tablet 500 mg PO QID RF: 0 diltiazem HCl 180 MG capsule,extended release 24hr 360 mg PO DAILY RF: 0 metoprolol succinate [Toprol XL] 100 MG tablet extended release 24 hr 200 mg PO QAM RF: 0 cyanocobalamin (vitamin B-12) 100 mcg Tablet 100 mcg PO BID RF: 0 sennosides-docusate sodium [Senna-S] 8.6-50 mg Tablet 1 tab PO DAILY PRN (Reason: Constipation) RF: 0 metoprolol succinate 100 mg tablet extended release 24 hr 100 mg PO QPM RF: 0 acetaminophen 500 mg Tablet 500 mg PO Q6H PRN (Reason: Fever Or Pain) RF: 0 pantoprazole 40 mg tablet,delayed release (DR/EC) 40 mg PO BID RF: 0 ferrous sulfate 325 mg (65 mg iron) tablet 325 mg PO DAILY RF: 0 lisinopril 2.5 mg tablet 2.5 mg PO DAILY RF: 0 coenzyme Q10 [CoQ-10] 100 mg Capsule 300 mg PO DAILY RF: 0 cholecalciferol (vitamin D3) [Vitamin D3] 2,000 unit Capsule 2,000 unit PO BID RF: 0 Centrum Silver Men 300-600-300 mcg Tablet 1 tab PO DAILY RF: 0 furosemide [Lasix] 20 MG tablet 20 mg PO QAM RF: 0 diphenhydramine-acetaminophen [Tylenol PM Extra Strength] 25-500 mg Tablet 2 tab PO BEDTIME PRN (Reason: Sleep) RF: 0 Follow up/Referrals: Koby Leone MD [Primary Care Provider] - Diet/Activity/Treatments Diet: Diet as Tolerated Activity: As tolerated Discharge Data Primary Care Provider: Koby Leone V Attending Provider: Briana Porter VTE Deep Vein Thrombosis/Pulmonary Embolism Present on Admission: No
--- NOTE | 2021-01-30 14:10 | PT.IPTN ---
Physical Therapy Treatment Note M2 PT-IP Current Condition Start: 01/28/21 11:59 Freq: NEEDED Status: Discharge Protocol: Document 01/28/21 10:51 AB (Rec: 01/28/21 12:41 AB [email or web address]) Physical Therapy Current Condition Current Condition Evaluation Date 01/28/21 Treatment Diagnosis A-fib; weakness; difficulty in walking Onset Date 01/27/21 Precautions Other Precautions falls M3 PT-IP Subjective Start: 01/28/21 11:59 Freq: NEEDED Status: Discharge Protocol: Document 01/30/21 14:15 AB (Rec: 01/30/21 15:10 AB [email or web address]) Subjective Physical Therapy Visit Type Type Treatment Note Visit Start Time 14:15 Visit Stop Time 14:30 Total Visit Minutes 15 Number of TOPOGRAPHICAL DRAFTER Visits 0 Physical Therapy Visit Comments Patient Comments agreeable to do PT; continues to have confusion M4 PT-IP Mobility and Gait Start: 01/28/21 11:59 Freq: NEEDED Status: Discharge Protocol: Document 01/30/21 14:15 AB (Rec: 01/30/21 15:10 AB [email or web address]) PT-Bed Mobility Assessment Supine to Sit Supine to Sit Independent PT-Transfer Assessment Sit to and From Stand Sit to and from Stand Independent Equipment Transfer Assistive Device None,Gait Belt Transfers Transfer Destination Chair Transfer Technique ambulated without AD Transfer Ability Level of Assist Standby Assistance Comments Mobility Comments pt wanting to get up and get ready for d/c. pt with confusion but agreed to do PT. pt completed supine to sit independent. sit to stand SBA and ambualted 225 ft without AD SBA and cues to slow down but pt without LOB. pt sat on chair. assisted with dressing as pt is anxious to go home. pt was able to maintain standing without AD while doing LB dressing. Nurse took over. Gait Assessment Gait Gait Assistance Required: Standby Assistance Distance (Feet) 225 Able to Maintain Weight Bearing Status Yes During Gait Assistive Devices Assistive Device None,Gait Belt Orthotic/Prosthetic Devices or Brace: No Gait Deviations General Gait Pattern Antalgic Factors Limiting Gait Function Factors Limiting Gait Function Poor Safety Awareness M5 PT-IP Objective Assessments Start: 01/28/21 11:59 Freq: NEEDED Status: Discharge Protocol: Document 01/28/21 10:51 AB (Rec: 01/28/21 12:41 AB [id number]) Orientation Orientation/Cognition Level of Alertness Alert Orientation Name Language Function Ability No Deficits Noted Safety Awareness Decreased Safety Awareness Memory Description Short Term Impaired,Special Projects Manager Impaired Gross Range of Motion Lower Extremity ROM Assessment Within Functional Limits Strength Lower Extremity Strength Hip 4-/5 Knee 4-/5 Sensation Assessment Sensation Gross Sensation WNL Muscle Tone Muscle Tone WNL Yes M6 PT-IP Treatment Start: 01/28/21 11:59 Freq: NEEDED Status: Discharge Protocol: Document 01/30/21 14:15 AB (Rec: 01/30/21 15:10 AB [email or web address]) Physical Therapy Treatment Education Education Provided Safety M7 PT-IP Assessment and Plan Start: 01/28/21 11:59 Freq: NEEDED Status: Discharge Protocol: Document 01/30/21 14:15 AB (Rec: 01/30/21 15:10 AB [email or web address]) PT Summary Assessment and Plan Potential Rehabilitation Potential Good Summary Impairments Pain,ROM,Strength,Balance, Coordination,Sensation,Tone, Cognition,Bed Mobility, Transfers,Gait,Activity Tolerance Progress Towards Goals Safe For Discharge Assessment Summary pt continues to be SBA with ambulation without AD and has no LOB. has decrease safety awareness due to cognitive issues. pt plans to go home and daughter to check on pt. SBA needed just for safety and redirections. Frequency of Treatment Frequency Of Treatment Discharge Treatment Plan Physical Therapy Treatment Plan Bed Mobility Training,Transfer Training,Gait Training, Therapeutic Exercise,Balance Retraining,Post Op Education, Discharge Planning,Hot or Cold Pack,Neuromuscular Re-ed, Coordination Retraining,Manual Therapy Recommendations To Nursing Amount of Assist Needed Standby Assistance Discharge Recommendations PT Discharge Recommendations Home with Assistance Transportation Needs at Discharge Private Vehicle
--- NOTE | 2021-01-30 14:22 | CM.DPC ---
DCP: continued: case received and dc order for home noted. Checked in with RN Felicia who reports she has spoken with pt's daugher Alyssa who is on her way here now to [facility] pt up. Spoke with pt after EMR reviewed. Pt does acknowledge that he knows his memory is not what it once was and that this is why he lines up his medications so carefully and writes down what he needs to do with them. Pt does say he would like his new medication orders to be sent to [facility] as they use drive up service and we can pick the medication up on the way home. Wilman Andrew has already had a discussion re services and notes indicate this is not an option pt will accept. P: home today. If Vani arrives while this Dc habitat conservation planner is still here will talk with her and provide the 2020 Senior Resource Guide for [facility] as this may be helpful for future planning.
--- NOTE | 2021-01-30 15:06 | PC.NURSE ---
Patient A&Ox2, forgetful, pleasant. HR on telemetry 140's this a.m. and recieved increased dose of diltiazem 180 mg po without much effect this a.m. RN administered 10 mg IV diltiazem with good effect bringing HR to 90's 110's. Pt asymptomatic this a.m. Per MD Carrillo medically cleared for discharge with instructions to continue home medications including plavix (from prev admission) to be continued until follow up with PCP. Pt verbalized understanding of d/c instructions and follow up care as wella s medications. DIRECTOR INTERNATIONAL escorted to main entrance this afternoon with all of belongings including cell phone and glasses to main entrance private car where daughter Serenity awaited to transport him home.
== END 2021-01-30 14:50 | disposition home or self-care (01) ==
LOC: ED 14:07 → AC 14:12
PROVIDERS: Nurse Practitioner Family; Admitting Provider Internal Medicine; Emergency Provider Emergency Medicine; PCP Internal Medicine; Referring Provider Emergency Medicine; Visit Provider Internal Medicine
DX: R53.1 Weakness (principal); R29.818 Other symptoms and signs involving the nervous system; I10 Essential (primary) hypertension; E78.5 Hyperlipidemia, unspecified; J44.9 Chronic obstructive pulmonary disease, unspecified; I48.20 Chronic atrial fibrillation, unspecified; M06.9 Rheumatoid arthritis, unspecified; Z95.2 Presence of prosthetic heart valve; Z20.822 Contact with and (suspected) exposure to COVID-19
CPT/HCPCS: 36415; 70450; 70496; 70498; 80053; 81003; 82550; 83036; 83540; 83550; 83605; 84484; 85025; 85045; 85610; 85730; 87635; 93005; 96360; 96361; 97116; 97129; 97161; 97165; 97530; 97535; 99284; G0378; C9113

== ENCOUNTER → 2021-03-19 08:54 | Outpatient (CLI) | payer OTHER, SELFPAY ==
[2021-01-27 15:58] VITALS: BMI 25.4
--- NOTE | 2021-03-19 | DI.RAD.S_ITS ---
PROCEDURE: XR LUMBAR SPINE 2-3V INDICATIONS: Low back pain TECHNIQUE: 3 views of the lumbar spine were acquired. COMPARISON: [facility], CR, XR CHEST 2V, 03/13/2020, 10:35. [facility], CT, CT ABDOMEN PELVIS W CON, 06/30/2018, 8:42. FINDINGS: Bones: Mild anterior wedging of the L2 vertebral body. Multilevel degenerative endplate sclerosis and spurring. Diffuse facet arthropathy. Trace retrolisthesis of L2 on L3 and L3 on L4. There is also trace retrolisthesis of L4 on L5. Moderate narrowing of the L5-S1 disc space. Minimal levocurvature. Soft tissues: Scattered aortic vascular calcifications. IMPRESSION: Diffuse spondylosis and age-indeterminate mild L2 compression fracture. Please correlate to point tenderness and if necessary, MRI to assess for acute marrow edema could be performed. Multilevel spondylolisthesis as above. Dictated by: Henry Montano M.D. on 03/19/2021 at 11:04 Approved by: Henry Montano M.D. on 03/19/2021 at 11:06
== END ==
PROVIDERS: PCP Internal Medicine; Referring Provider Internal Medicine; Visit Provider Internal Medicine
DX: M54.5 Low back pain (principal); M47.816 Spondylosis without myelopathy or radiculopathy, lumbar region; M43.16 Spondylolisthesis, lumbar region; M48.56XA Collapsed vertebra, not elsewhere classified, lumbar region, initial encounter for fracture
CPT/HCPCS: 72100

== ENCOUNTER 2021-04-01 09:59 | Emergency (ER) | payer OTHER, SELFPAY ==
[2021-01-27 15:58] VITALS: BMI 25.4
[2021-04-01] VITALS (16 sets, daily range): BP systolic 109–138; BP diastolic 56–76; PULSE 66–79; RESP 16; TEMP 37; O2SAT 92–97; BMI 23.0
[2021-04-01 10:27] LABS: Add Manual Diff / Slide Review NO; Basophils Absolute Auto 100 /uL (0-100); Basophils Percent Auto 0.7 % (0-2); Eosinophils Absolute Auto 0 /uL (0-450); Eosinophils Percent Auto 0.1 % (2-4); Hemoglobin 13.3 g/dL (13.5-17.5); Lymphocytes Absolute Auto 800 /uL (1100-4500); Lymphocytes Percent Auto 7.2 % (25-40); Mean Corpuscular HGB Conc 32.3 % (30-36); Mean Corpuscular Hemoglobin 29.6 PG (26-34); Mean Corpuscular Volume 91.5 fL (80-100); Monocytes Absolute Auto 900 /uL (0-900); Monocytes Percent Auto 7.5 % (3-14); Neutrophils Absolute Auto 9800 /uL (1500-7000); Neutrophils Percent Auto 84.5 % (50-75); Platelet Count 292 X10^3/uL (150-400); Red Blood Cell Count 4.49 X10^6/uL (4.5-5.9); White Blood Cell Count 11.7 X10^3/uL (4.5-11.0)
[2021-04-01 10:32] LABS: Alanine Aminotransferase 18 IU/L (<50); Albumin 4.7 g/dL (3.5-5.0); Albumin Globulin Ratio 1.5 (1.0-2.8); Alkaline Phosphatase 86 U/L (38-126); Aspartate Aminotransferase 35 IU/L (17-59); BUN Creatinine Ratio 17.7 (6-22); Bilirubin Total 0.5 mg/dL (0.2-1.3); Blood Urea Nitrogen 14 mg/dL (9-20); Calcium 9.3 mg/dL (8.4-10.2); Carbon Dioxide 32 mmol/L (22-32); Chloride 97 mmol/L (98-107); Estimated Glomerular Filt Rate > 60.0 mL/min (>60); Globulin 3.1 g/dL (1.7-4.1); Glucose 124 mg/dL (80-110); HEMOLYSIS 49 (0-50); Lipase 295 U/L (23-300); Potassium 4.1 mmol/L (3.4-5.1); Sodium 138 mmol/L (137-145); Total Protein 7.8 g/dL (6.3-8.2)
[2021-04-01] MEDS: SODIUM CHLORIDE 0.9% 500 ML 1000 ML IV (13:49)
[2021-04-01] MEDS: PANTOPRAZOLE 40 MG VIAL IV (13:49)
--- NOTE | 2021-04-01 13:57 | DI.CT.S_ITS ---
PROCEDURE: CT ABDOMEN PELVIS W CON INDICATIONS: abd pain, l flank pain, hx stomach avm TECHNIQUE: After the administration of intravenous contrast, 5 mm thick sections acquired from the diaphragm to the symphysis. 5 mm coronal and sagittal reformats were acquired. For radiation dose reduction, the following was used: automated exposure control, adjustment of mA and/or kV according to patient size. COMPARISON: [facility], CT, CT ABDOMEN PELVIS W CON, 06/30/2018, 8:42. FINDINGS: Image quality: Excellent. ABDOMEN: Lung bases: Extreme lung bases are clear. Mild cardiomegaly. Pacemaker. Solid organs: Liver is normal in size and enhancement. Gallbladder is surgically absent.. Biliary system is non dilated. Pancreas enhances normally. Spleen is normal in size and enhancement. No adrenal nodules. Kidneys demonstrate normal size and enhancement, without hydronephrosis. Peritoneum and bowel: Bowel loops demonstrate normal wall thickness and caliber. No free fluid or air. Extensive sigmoid diverticulosis without evidence of diverticulitis. Nodes and vessels: No retroperitoneal or mesenteric adenopathy by size criteria. Aorta and inferior vena cava are normal in size. Ectatic but not aneurysmal aorta. Ectatic bilateral common iliac arteries. Diffuse aortic and bilateral iliac atherosclerotic calcifications. Probable hemodynamically significant origin stenosis of the left external iliac artery. Miscellaneous: No ventral hernias. PELVIS: Genitourinary: Bladder wall thickness is normal. Prostate is enlarged. Miscellaneous: Right inguinal hernia containing some mesenteric vessels with bowel extending to the hernia. Bones: No suspicious bony lesions. No acute vertebral body compression fractures. Interval moderate L2 compression, now old. IMPRESSION: 1. Extensive sigmoid diverticulosis without evidence of diverticulitis. 2. 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 3. Interval L2 compression fracture, now chronic. 4. No evidence of acute abdominal process. 5. Right inguinal hernia contains some mesenteric vessels without extension of bowel into the hernia. 6. Prostate enlargement. Dictated by: Aureliano Black M.D. on 04/01/2021 at 14:21 Approved by: Aureliano Black M.D. on 04/01/2021 at 14:27
[2021-04-01 14:05] LABS: INR 1.1 (0.9-1.3); Prothrombin Time 12.4 SECONDS (10.1-12.7)
[2021-04-01 14:08] LABS: Amylase 83 U/L (30-110); Creatine Kinase 38 U/L (55-170)
[2021-04-01 14:08] LABS: PTT Partial Thromboplastin Tim 30 SECONDS (26.4-36.2)
[2021-04-01 14:18] LABS: COVID19 -Nasal RAPID Negative (Negative)
[2021-04-01 14:20] LABS: Troponin I < 0.012 ng/mL (0.01-0.034)
--- NOTE | 2021-04-01 14:45 | ED_ITS ---
HPI - Abdominal Pain <Kalyani PryorNIKKO beachP-BC - Last Filed: 04/01/21 18:40> General Chief Complaint: Abdominal Pain Stated Complaint: pain in small of back+side, stomach burning Time Seen by Provider: 04/01/21 10:19 Source: patient Mode of arrival: Ambulatory Limitations: no limitations History of Present Illness HPI narrative: The patient is an 85-year-old male former smoker with history of aortic stenosis, atrial flutter, atrial fibrillation COPD and gastric AVM who presents with a chief complaint of abdominal pain. Minor abdominal pain and lower back pain on and off for over a month which gotten worse the past few days. He states he feels like his stomach is burning. He states that his back pain is in his right flank as well. Denies any vomiting, denies any diarrhea, states last bowel movements have been normal. Denies any dysuria urgency or frequency. Denies any fevers muscle aches or chills. Denies any chest pain or shortness of breath. States that his abdominal pain and just sits in his abdomen and does not radiate. He has not taken anything for his pain. Denies any different foods over the past few days. Related Data Home Medications Medication Instructions Recorded Confirmed atorvastatin [Lipitor] 20 mg PO BEDTIME #0 05/16/17 01/27/21 lorazepam 1 mg PO DAILY PRN #0 11/24/17 01/27/21 ascorbic acid (vitamin C) [Vitamin 500 mg PO QID 05/21/18 01/27/21 C] diltiazem HCl 360 mg PO DAILY 05/21/18 01/27/21 metoprolol succinate [Toprol XL] 200 mg PO QAM 05/21/18 01/27/21 Centrum Silver Men 1 tab PO DAILY 12/01/18 01/27/21 acetaminophen 500 mg PO Q6H PRN 12/01/18 01/27/21 cholecalciferol (vitamin D3) 2,000 unit PO BID 12/01/18 01/27/21 [Vitamin D3] coenzyme Q10 [CoQ-10] 300 mg PO DAILY 12/01/18 01/27/21 cyanocobalamin (vitamin B-12) 100 mcg PO BID 12/01/18 01/27/21 diphenhydramine-acetaminophen 2 tab PO BEDTIME PRN 12/01/18 01/27/21 [Tylenol PM Extra Strength] ferrous sulfate 325 mg PO DAILY 12/01/18 01/27/21 furosemide [Lasix] 20 mg PO QAM 12/01/18 01/27/21 lisinopril 2.5 mg PO DAILY 12/01/18 01/27/21 metoprolol succinate 100 mg PO QPM 12/01/18 01/27/21 pantoprazole 40 mg PO BID 12/01/18 01/27/21 sennosides-docusate sodium 1 tab PO DAILY PRN 12/01/18 01/27/21 [Senna-S] Allergies Allergy/AdvReac Type Severity Reaction Status Date / Time aspirin [ASPIRIN] Allergy Intermediate HIVES, Verified 04/01/21 10:16 EARS RING lactose [LACTOSE] Allergy Unknown Verified 04/01/21 10:16 Review of Systems <ZARIA Zhong - Last Filed: 04/01/21 18:40> Review of Systems Narrative: GENERAL: Denies chills, fatigue, malaise, fever, sweats. HEENT: Denies sinus pain, ear pain, sore throat, difficulty swallowing, dizziness. RESPIRATORY: Denies dyspnea, cough, wheezing, hemoptysis, sputum. CARDIOVASCULAR: Denies chest pain, palpitations, orthopnea, edema, GASTROINTESTINAL: See HPI : Denies dysuria, frequency, incontinence, hematuria, urinary retention. MUSCULOSKELETAL: See HPI SKIN: Denies rash, skin lesions, or other NEUROLOGIC: Denies weakness, headache, numbness, change in speech, confusion, seizures, incoordination. PSYCHIATRIC: No concerning psychosocial issues. 12 point review of systems is negative except for those stated above Patient History <ZARIA Zhong - Last Filed: 04/01/21 18:40> Medical History (Updated 04/01/21 @ 15:48 by ZARIA Zhong) Acquired arteriovenous malformation of stomach Aortic valvular stenosis Atrial fibrillation Cholelithiasis Chronic obstructive pulmonary disease Fatigue Gallstone pancreatitis Generalized anxiety disorder History of gastrointestinal hemorrhage History of tobacco abuse Hyperlipidemia Hypertension Restrictive lung disease Rheumatoid arthritis Surgical History H/O sinus surgery History of aortic valve replacement History of colonoscopy History of esophagogastroduodenoscopy (EGD) History of sinus surgery History of tonsillectomy History of tricuspid valve annuloplasty Status post mitral valve annuloplasty Family History Father Heart disease Hypertension Mother Heart disease Sister Heart disease Cancer Social History household members: none Smoking Status: Former smoker Tobacco: How many years used: 60 alcohol intake: former substance use type: does not use Smoking Status: Former smoker alcohol intake frequency: 0-2 drinks per day Substance Use Type: marijuana Exam <ZARIA Zhong - Last Filed: 04/01/21 18:40> Narrative Exam Narrative: GENERAL: This is a well-nourished, well-developed patient, in mild distress. HEAD: Atraumatic. Normocephalic. No temporal or scalp tenderness. EYES: Pupils equal round and reactive. Extraocular motions intact. No scleral icterus. No injection or drainage. ENT: Nose without bleeding, purulent drainage or septal hematoma. Wearing a mask Airway patent. NECK: Trachea midline. No JVD or lymphadenopathy. Supple, nontender, no meningeal signs. CARDIOVASCULAR: Regular rate and rhythm RESPIRATORY: Clear to auscultation. Breath sounds equal bilaterally. No wheezes, rales, or rhonchi. No cough. No increased respiratory effort. No accessory muscle use. In full sentences. GASTROINTESTINAL: Abdomen soft, diffusely tender, active bowel sounds all 4 quadrants. No hepato-splenomegaly, or palpable masses. No guarding. EXTREMITIES: No clubbing, cyanosis, or edema. No joint tenderness, effusion, or edema noted. BACK: Nontender without deformity or crepitance. No CVA tenderness on exam. Palpation noted diffuse lumbar region. NEURO: Alert, interactive SKIN: No rash or erythema. Initial Vital Signs Initial Vital Signs: Vital Signs Temperature 98.6 F 04/01/21 10:00 Pulse Rate 79 04/01/21 10:00 Respiratory Rate 16 04/01/21 10:00 Blood Pressure 109/76 04/01/21 10:00 Pulse Oximetry 95 04/01/21 10:00 <Bladimir Aviles DO - Last Filed: 04/01/21 18:46> Initial Vital Signs Initial Vital Signs: Vital Signs Temperature 98.6 F 04/01/21 10:00 Pulse Rate 79 04/01/21 10:00 Respiratory Rate 16 04/01/21 10:00 Blood Pressure 109/76 04/01/21 10:00 Pulse Oximetry 95 04/01/21 10:00 Scores <Kalyani JeffersLEONARDA-BC - Last Filed: 04/01/21 18:40> GCS Catherine coma scale eye opening: Spontaneous Catherine coma scale verbal response: Orientated Catherine coma scale motor response: Obey commands Leon coma scale total score: 15 Course <Kalyani JeffersLEONARDA-BC - Last Filed: 04/01/21 18:40> Orders Ordered: ED Orders 04/01/21 10:13 Amylase Stat Complete Blood Count AUTO DIFF Stat Comprehensive Metabolic Panel Stat Lipase Stat Magnesium Stat Troponin & CK Cardiac Panel Stat 04/01/21 13:50 COVID19 -Nasal swab/Pre-Proc Stat Partial Thromboplastin Time Stat Prothrombin Time INR Stat 04/01/21 13:57 CT abdomen pelvis w con Stat Discontinued Medications Sodium Chloride (Normal Saline 0.9%) 500 mls @ 1,000 mls/hr IV BOLUS ONE Stop: 04/01/21 12:59 Last Infusion: 04/01/21 15:26 Dose: 0 mls/hr Documented by: Admin: 04/01/21 13:49 Dose: 1,000 mls/hr Documented by: CARMEN Pantoprazole Sodium (Pantoprazole 40 Mg Vial) 40 mg IV NOW ONE Stop: 04/01/21 12:31 Last Admin: 04/01/21 13:49 Dose: 40 mg Documented by: CARMEN Vital Signs Vital signs: Vital Signs - 8 hr 04/01/21 11:00 04/01/21 11:30 04/01/21 12:00 Pulse Rate 71 70 69 Blood Pressure 114/56 L 123/58 L 138/62 Pulse Oximetry 95 95 93 04/01/21 12:30 04/01/21 13:00 04/01/21 13:30 Pulse Rate 70 69 69 Blood Pressure 127/60 123/58 L 132/60 Pulse Oximetry 96 95 93 04/01/21 13:37 04/01/21 14:00 04/01/21 14:52 Pulse Rate 69 69 67 Blood Pressure Pulse Oximetry 95 96 92 04/01/21 14:53 04/01/21 15:00 04/01/21 15:31 Pulse Rate 68 69 69 Blood Pressure 138/64 127/58 L Pulse Oximetry 94 95 97 04/01/21 15:32 Pulse Rate 66 Blood Pressure 134/62 Pulse Oximetry 96 <Bladimir Aviles - Last Filed: 04/01/21 18:46> Orders Ordered: ED Orders 04/01/21 10:13 Amylase Stat Complete Blood Count AUTO DIFF Stat Comprehensive Metabolic Panel Stat Lipase Stat Magnesium Stat Troponin & CK Cardiac Panel Stat 04/01/21 13:50 COVID19 -Nasal swab/Pre-Proc Stat Partial Thromboplastin Time Stat Prothrombin Time INR Stat 04/01/21 13:57 CT abdomen pelvis w con Stat Discontinued Medications Sodium Chloride (Normal Saline 0.9%) 500 mls @ 1,000 mls/hr IV BOLUS ONE Stop: 04/01/21 12:59 Last Infusion: 04/01/21 15:26 Dose: 0 mls/hr Documented by: Admin: 04/01/21 13:49 Dose: 1,000 mls/hr Documented by: CARMEN Pantoprazole Sodium (Pantoprazole 40 Mg Vial) 40 mg IV NOW ONE Stop: 04/01/21 12:31 Last Admin: 04/01/21 13:49 Dose: 40 mg Documented by: CARMEN Vital Signs Vital signs: Vital Signs - 8 hr 04/01/21 11:00 04/01/21 11:30 04/01/21 12:00 Pulse Rate 71 70 69 Blood Pressure 114/56 L 123/58 L 138/62 Pulse Oximetry 95 95 93 04/01/21 12:30 04/01/21 13:00 04/01/21 13:30 Pulse Rate 70 69 69 Blood Pressure 127/60 123/58 L 132/60 Pulse Oximetry 96 95 93 04/01/21 13:37 04/01/21 14:00 04/01/21 14:52 Pulse Rate 69 69 67 Blood Pressure Pulse Oximetry 95 96 92 04/01/21 14:53 04/01/21 15:00 04/01/21 15:31 Pulse Rate 68 69 69 Blood Pressure 138/64 127/58 L Pulse Oximetry 94 95 97 04/01/21 15:32 Pulse Rate 66 Blood Pressure 134/62 Pulse Oximetry 96 MDM - Abdominal Pain <Kalyani Zeyad, SLITTING MACHINE FEEDER-BC - Last Filed: 04/01/21 18:40> Lab Data Attestation: I reviewed the patient's lab results. Result diagrams: 04/01/21 10:13 04/01/21 10:13 Labs: Lab Results 04/01/21 04/01/21 04/01/21 Range/Units 10:13 10:13 10:13 WBC 11.7 H (4.5-11.0) X10^3/uL RBC 4.49 L (4.5-5.9) X10^6/uL Hgb 13.3 L (13.5-17.5) g/dL Hct 41.0 (41-53) % MCV 91.5 (80-100) fL MCH 29.6 (26-34) PG MCHC 32.3 (30-36) % RDW 13.0 (11.6-14.8) % Plt Count 292 (150-400) X10^3/uL Neut % (Auto) 84.5 H (50-75) % Lymph % (Auto) 7.2 L (25-40) % [place] % (Auto) 7.5 (3-14) % Eos % (Auto) 0.1 L (2-4) % Baso % (Auto) 0.7 (0-2) % Neut # (Auto) 9800 H (6842-1824) /uL Lymph # (Auto) 800 L (2313-0336) /uL [place] # (Auto) 900 (0-900) /uL Eos # (Auto) 0 (0-450) /uL Baso # (Auto) 100 (0-100) /uL PT (10.1-12.7) SECONDS INR (0.9-1.3) APTT (26.4-36.2) SECONDS Sodium 138 (137-145) mmol/L Potassium 4.1 (3.4-5.1) mmol/L Chloride 97 L (98-107) mmol/L Carbon Dioxide 32 (22-32) mmol/L BUN 14 (9-20) mg/dL Creatinine 0.79 (0.66-1.25) mg/dL Estimated GFR > 60.0 (>60) mL/min BUN/Creatinine Ratio 17.7 (6-22) Glucose 124 H (80-110) mg/dL Calcium 9.3 (8.4-10.2) mg/dL Magnesium 2.0 (1.6-2.3) mg/dL Total Bilirubin 0.5 (0.2-1.3) mg/dL AST 35 (17-59) IU/L ALT 18 (<50) IU/L Alkaline Phosphatase 86 (38-126) U/L Total Creatine Kinase (55-170) U/L CK-MB (CK-2) CK-MB (CK-2) Rel Index Troponin I (0.01-0.034) ng/mL Total Protein 7.8 (6.3-8.2) g/dL Albumin 4.7 (3.5-5.0) g/dL Globulin 3.1 (1.7-4.1) g/dL Albumin/Globulin Ratio 1.5 (1.0-2.8) Amylase 83 (30-110) U/L Lipase 295 (23-300) U/L SARS-CoV-2 (PCR) (Negative) 04/01/21 04/01/21 04/01/21 Range/Units 10:13 13:50 13:50 WBC (4.5-11.0) X10^3/uL RBC (4.5-5.9) X10^6/uL Hgb (13.5-17.5) g/dL Hct (41-53) % MCV (80-100) fL MCH (26-34) PG MCHC (30-36) % RDW (11.6-14.8) % Plt Count (150-400) X10^3/uL Neut % (Auto) (50-75) % Lymph % (Auto) (25-40) % [place] % (Auto) (3-14) % Eos % (Auto) (2-4) % Baso % (Auto) (0-2) % Neut # (Auto) (5667-7550) /uL Lymph # (Auto) (6667-8491) /uL [place] # (Auto) (0-900) /uL Eos # (Auto) (0-450) /uL Baso # (Auto) (0-100) /uL PT 12.4 (10.1-12.7) SECONDS INR 1.1 (0.9-1.3) APTT 30 D (26.4-36.2) SECONDS Sodium (137-145) mmol/L Potassium (3.4-5.1) mmol/L Chloride (98-107) mmol/L Carbon Dioxide (22-32) mmol/L BUN (9-20) mg/dL Creatinine (0.66-1.25) mg/dL Estimated GFR (>60) mL/min BUN/Creatinine Ratio (6-22) Glucose (80-110) mg/dL Calcium (8.4-10.2) mg/dL Magnesium (1.6-2.3) mg/dL Total Bilirubin (0.2-1.3) mg/dL AST (17-59) IU/L ALT (<50) IU/L Alkaline Phosphatase (38-126) U/L Total Creatine Kinase 38 L (55-170) U/L CK-MB (CK-2) TNP CK-MB (CK-2) Rel Index TNP Troponin I < 0.012 (0.01-0.034) ng/mL Total Protein (6.3-8.2) g/dL Albumin (3.5-5.0) g/dL Globulin (1.7-4.1) g/dL Albumin/Globulin Ratio (1.0-2.8) Amylase (30-110) U/L Lipase (23-300) U/L SARS-CoV-2 (PCR) Negative (Negative) Point of care testing: Urine Dip Bedside Urine Glucose Negative Bedside Urine Bilirubin - Negative Bedside Urine Ketone - Negative Urine Specific [place] 1.015 Bedside Urine Occult Blood - Negative Bedside Urine pH 7.5 Bedside Urine Protein - Negative Bedside Urine Urobilinogen - Negative Bedside Urine Nitrite - Negative Bedside Urine Leukocytes - Negative Esterase Imaging Data CT scan - abdomen/pelvis: Radiologist's Impression: [address] [id number] Scan ReportSigned Patient: Marvin Diaz LMR#: [id number]: [id number]:[id number]/Sex: 85 / MDate of Service: 04/01/21Loc: EDAccession Number: [id number] Procedure: CT abdomen pelvis w con Ordering Provider: Kalyani Jeffers SLITTING MACHINE FEEDER-BC PROCEDURE: CT ABDOMEN PELVIS W CON INDICATIONS: abd pain, l flank pain, hx stomach avm TECHNIQUE: After the administration of intravenous contrast, 5 mm thick sections acquired from the diaphragm to the symphysis. 5 mm coronal and sagittal reformats were acquired. For radiation dose reduction, the following was used: automated exposure control, adjustment of mA and/or kV according to patient size. COMPARISON: [facility], CT, CT ABDOMEN PELVIS W CON, 06/30/2018, 8:42. FINDINGS: Image quality: Excellent. ABDOMEN: Lung bases: Extreme lung bases are clear. Mild cardiomegaly. Pacemaker. Solid organs: Liver is normal in size and enhancement. Gallbladder is surgically absent.. Biliary system is non dilated. Pancreas enhances normally. Spleen is normal in size and enhancement. No adrenal nodules. Kidneys demonstrate normal size and enhancement, without hydronephrosis. Peritoneum and bowel: Bowel loops demonstrate normal wall thickness and caliber. No free fluid or air. Extensive sigmoid diverticulosis without evidence of diverticulitis. Nodes and vessels: No retroperitoneal or mesenteric adenopathy by size criteria. Aorta and inferior vena cava are normal in size. Ectatic but not aneurysmal aorta. Ectatic bilateral common iliac arteries. Diffuse aortic and bilateral iliac atherosclerotic calcifications. Probable hemodynamically significant origin stenosis of the left external iliac artery. Miscellaneous: No ventral hernias. PELVIS: Genitourinary: Bladder wall thickness is normal. Prostate is enlarged. Miscellaneous: Right inguinal hernia containing some mesenteric vessels with bowel extending to the hernia. Bones: No suspicious bony lesions. No acute vertebral body compression fractures. Interval moderate L2 compression, now old. IMPRESSION: 1. Extensive sigmoid diverticulosis without evidence of diverticulitis. 2. 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 3. Interval L2 compression fracture, now chronic. 4. No evidence of acute abdominal process. 5. Right inguinal hernia contains some mesenteric vessels without extension of bowel into the hernia. 6. Prostate enlargement. Dictated by: Aureliano Black M.D. on 04/01/2021 at 14:21 Approved by: Aureliano Black M.D. on 04/01/2021 at 14:27 MDM Narrative Medical decision making narrative: The patient's who presents with a chief complaint of back pain as well as abdominal pain. Lab work is grossly normal within normal limits, given his history of gastric AVM, CT abdomen pelvis obtained which came back with no acute findings. The patient has no evidence of urinary tract infection, no significant leukocytosis, normal renal function, normal bilirubin. The patient feels much improved after a single dose of Protonix. He request to go home. I discussed findings at length with the patient as well as his daughter Medina per his request. Discussed at length strict ER return precautions for abdominal who fever, any inability keep down fluids etcetera. Encouraged follow-up with primary care provider in the next few days. Discussed that the chronic L2 compression fracture may be causing his back pain. Regarding a Radiology impression of proximal left external iliac artery stenosis, the patient has no pain or complaints regarding bilateral legs, encouraged follow-up with primary care provider regarding this as he has warm feet bilaterally and denies any leg pain bilaterally. Patient daughter no questions or concerns upon discharge states understanding of return precautions as well as follow-up care. <Bladimir Aviles, DO - Last Filed: 04/01/21 18:46> Lab Data Labs: Lab Results 04/01/21 04/01/21 04/01/21 Range/Units 10:13 10:13 10:13 WBC 11.7 H (4.5-11.0) X10^3/uL RBC 4.49 L (4.5-5.9) X10^6/uL Hgb 13.3 L (13.5-17.5) g/dL Hct 41.0 (41-53) % MCV 91.5 (80-100) fL MCH 29.6 (26-34) PG MCHC 32.3 (30-36) % RDW 13.0 (11.6-14.8) % Plt Count 292 (150-400) X10^3/uL Neut % (Auto) 84.5 H (50-75) % Lymph % (Auto) 7.2 L (25-40) % [place] % (Auto) 7.5 (3-14) % Eos % (Auto) 0.1 L (2-4) % Baso % (Auto) 0.7 (0-2) % Neut # (Auto) 9800 H (2615-8665) /uL Lymph # (Auto) 800 L (3966-9300) /uL [place] # (Auto) 900 (0-900) /uL Eos # (Auto) 0 (0-450) /uL Baso # (Auto) 100 (0-100) /uL PT (10.1-12.7) SECONDS INR (0.9-1.3) APTT (26.4-36.2) SECONDS Sodium 138 (137-145) mmol/L Potassium 4.1 (3.4-5.1) mmol/L Chloride 97 L (98-107) mmol/L Carbon Dioxide 32 (22-32) mmol/L BUN 14 (9-20) mg/dL Creatinine 0.79 (0.66-1.25) mg/dL Estimated GFR > 60.0 (>60) mL/min BUN/Creatinine Ratio 17.7 (6-22) Glucose 124 H (80-110) mg/dL Calcium 9.3 (8.4-10.2) mg/dL Magnesium 2.0 (1.6-2.3) mg/dL Total Bilirubin 0.5 (0.2-1.3) mg/dL AST 35 (17-59) IU/L ALT 18 (<50) IU/L Alkaline Phosphatase 86 (38-126) U/L Total Creatine Kinase (55-170) U/L CK-MB (CK-2) CK-MB (CK-2) Rel Index Troponin I (0.01-0.034) ng/mL Total Protein 7.8 (6.3-8.2) g/dL Albumin 4.7 (3.5-5.0) g/dL Globulin 3.1 (1.7-4.1) g/dL Albumin/Globulin Ratio 1.5 (1.0-2.8) Amylase 83 (30-110) U/L Lipase 295 (23-300) U/L SARS-CoV-2 (PCR) (Negative) 04/01/21 04/01/21 04/01/21 Range/Units 10:13 13:50 13:50 WBC (4.5-11.0) X10^3/uL RBC (4.5-5.9) X10^6/uL Hgb (13.5-17.5) g/dL Hct (41-53) % MCV (80-100) fL MCH (26-34) PG MCHC (30-36) % RDW (11.6-14.8) % Plt Count (150-400) X10^3/uL Neut % (Auto) (50-75) % Lymph % (Auto) (25-40) % [place] % (Auto) (3-14) % Eos % (Auto) (2-4) % Baso % (Auto) (0-2) % Neut # (Auto) (9740-1121) /uL Lymph # (Auto) (8278-0943) /uL [place] # (Auto) (0-900) /uL Eos # (Auto) (0-450) /uL Baso # (Auto) (0-100) /uL PT 12.4 (10.1-12.7) SECONDS INR 1.1 (0.9-1.3) APTT 30 D (26.4-36.2) SECONDS Sodium (137-145) mmol/L Potassium (3.4-5.1) mmol/L Chloride (98-107) mmol/L Carbon Dioxide (22-32) mmol/L BUN (9-20) mg/dL Creatinine (0.66-1.25) mg/dL Estimated GFR (>60) mL/min BUN/Creatinine Ratio (6-22) Glucose (80-110) mg/dL Calcium (8.4-10.2) mg/dL Magnesium (1.6-2.3) mg/dL Total Bilirubin (0.2-1.3) mg/dL AST (17-59) IU/L ALT (<50) IU/L Alkaline Phosphatase (38-126) U/L Total Creatine Kinase 38 L (55-170) U/L CK-MB (CK-2) TNP CK-MB (CK-2) Rel Index TNP Troponin I < 0.012 (0.01-0.034) ng/mL Total Protein (6.3-8.2) g/dL Albumin (3.5-5.0) g/dL Globulin (1.7-4.1) g/dL Albumin/Globulin Ratio (1.0-2.8) Amylase (30-110) U/L Lipase (23-300) U/L SARS-CoV-2 (PCR) Negative (Negative) Point of care testing: Urine Dip Bedside Urine Glucose Negative Bedside Urine Bilirubin - Negative Bedside Urine Ketone - Negative Urine Specific [place] 1.015 Bedside Urine Occult Blood - Negative Bedside Urine pH 7.5 Bedside Urine Protein - Negative Bedside Urine Urobilinogen - Negative Bedside Urine Nitrite - Negative Bedside Urine Leukocytes - Negative Esterase Discharge Plan Departure Patient Disposition: Home Clinical Impression: Abdominal pain Qualifiers: Abdominal location: generalized Qualified Code(s): R10.84 - Generalized abdominal pain Instructions: DI for Abdominal Pain-Adult Activity Restrictions/Additional Instructions: Thank you for trusting us with your care today As discussed, your workup resulted very well. Please follow-up with primary care provider next few days. The pictures that we did were slightly concerning for some vascular issues with your legs, so please follow-up with primary care provider regarding this. As discussed, please come back to the emergency department for any acute concerns such as abdominal who fever, chest pain shortness of breath etcetera Prescriptions: No Action atorvastatin [Lipitor] 20 MG tablet 20 mg PO BEDTIME Qty: 0 RF: 0 lorazepam 1 MG tablet 1 mg PO DAILY PRN (Reason: Anxiety) Qty: 0 RF: 0 ascorbic acid (vitamin C) [Vitamin C] 500 mg Tablet 500 mg PO QID RF: 0 diltiazem HCl 180 MG capsule,extended release 24hr 360 mg PO DAILY RF: 0 metoprolol succinate [Toprol XL] 100 MG tablet extended release 24 hr 200 mg PO QAM RF: 0 cyanocobalamin (vitamin B-12) 100 mcg Tablet 100 mcg PO BID RF: 0 sennosides-docusate sodium [Senna-S] 8.6-50 mg Tablet 1 tab PO DAILY PRN (Reason: Constipation) RF: 0 metoprolol succinate 100 mg tablet extended release 24 hr 100 mg PO QPM RF: 0 acetaminophen 500 mg Tablet 500 mg PO Q6H PRN (Reason: Fever Or Pain) RF: 0 pantoprazole 40 mg tablet,delayed release (DR/EC) 40 mg PO BID RF: 0 ferrous sulfate 325 mg (65 mg iron) tablet 325 mg PO DAILY RF: 0 lisinopril 2.5 mg tablet 2.5 mg PO DAILY RF: 0 coenzyme Q10 [CoQ-10] 100 mg Capsule 300 mg PO DAILY RF: 0 cholecalciferol (vitamin D3) [Vitamin D3] 2,000 unit Capsule 2,000 unit PO BID RF: 0 Centrum Silver Men 300-600-300 mcg Tablet 1 tab PO DAILY RF: 0 furosemide [Lasix] 20 MG tablet 20 mg PO QAM RF: 0 diphenhydramine-acetaminophen [Tylenol PM Extra Strength] 25-500 mg Tablet 2 tab PO BEDTIME PRN (Reason: Sleep) RF: 0 Referrals: Koby Leone MD [Primary Care Provider] - <Bladimir Aviles, - Last Filed: 04/01/21 18:46> Cosign ED Attending Cosignature Attestation: Dr Aviles Co-Sign Statement: I was available for consultation during this patient's emergency department visit. This chart is signed by myself for administrative purposes only. I did not have direct contact with this patient during this visit. They were seen independe ntly by the APC.
== END 2021-04-01 16:01 | disposition home or self-care (01) ==
PROVIDERS: Emergency Medicine; Emergency Provider Nurse Practitioner Family; PCP Internal Medicine
DX: R10.84 Generalized abdominal pain (principal); M54.5 Low back pain; Z20.822 Contact with and (suspected) exposure to COVID-19
CPT/HCPCS: 36415; 74177; 80053; 81003; 82150; 82550; 83690; 83735; 84484; 85025; 85610; 85730; 87635; 96361; 96374; 99284; C9803; C9113; Q9967

== ENCOUNTER 2021-04-14 09:12 | Emergency (ER) | payer OTHER, SELFPAY ==
[2021-01-27 15:58] VITALS: BMI 25.4
[2021-04-14] VITALS (10 sets, daily range): BP systolic 107–144; BP diastolic 55–66; PULSE 66–78; RESP 18–24; TEMP 36.7; O2SAT 91–97; BMI 21.7
[2021-04-14 09:49] LABS: Bacteria Urine None Seen; RBC Urine None Seen (0-5/HPF); WBC Urine None Seen (0-5/HPF)
--- NOTE | 2021-04-14 09:52 | ED.MALEGU ---
HPI - Male Genitourinary General Chief complaint: Urogenital-Male Stated complaint: PEEING BLOOD Time Seen by Provider: 04/14/21 09:33 Source: patient Mode of arrival: Ambulatory Limitations: no limitations History of Present Illness HPI Narrative: This a pleasant 85-year-old male who states he had a bright red blood with bowel movement today. Initially chief complaint stated patient had blood on urination after discussion he states that it was when he had a bowel movement. He states that he noted it was bright red in the water. He did not appreciate any clots. He only had 1 episode today. He is not appreciate any prior episodes. He has had some generalized abdominal discomfort which he describes as mild to moderate. He has not had any fevers or chills. No nausea or vomiting. No chest pain or shortness of breath. He denies any dizziness or syncope. Patient states he has not any pain with bowel movements. He has not had any constipation or diarrhea recently. He denies any other urinary symptoms. Patient states he takes many medications but he is unsure of what they are. He does not know he takes any anticoagulants but none are available on his current home medication list. He does appear to take medications for hypertension, dyslipidemia and pantoprazole appears to have a history of TIA, AFib/flutter, prior pancreatitis, history of aortic valve replacement and hepatitis-C infection, CHF, rheumatoid arthritis and pulmonary emphysema. Patient was unable to give me any of this history. Patient states he had his tonsils removed as a child. He denies any other recent surgeries. He denies any prior abdominal surgeries. Patient denies any tobacco, no alcohol, he states he uses THC occasionally denies other illicit. Patient states his primary care physician is Dr. Leone. Related Data Home Medications Medication Instructions Recorded Confirmed atorvastatin [Lipitor] 20 mg PO BEDTIME #0 05/16/17 01/27/21 lorazepam 1 mg PO DAILY PRN #0 11/24/17 01/27/21 ascorbic acid (vitamin C) [Vitamin 500 mg PO QID 05/21/18 01/27/21 C] diltiazem HCl 360 mg PO DAILY 05/21/18 01/27/21 metoprolol succinate [Toprol XL] 200 mg PO QAM 05/21/18 01/27/21 Centrum Silver Men 1 tab PO DAILY 12/01/18 01/27/21 acetaminophen 500 mg PO Q6H PRN 12/01/18 01/27/21 cholecalciferol (vitamin D3) 2,000 unit PO BID 12/01/18 01/27/21 [Vitamin D3] coenzyme Q10 [CoQ-10] 300 mg PO DAILY 12/01/18 01/27/21 cyanocobalamin (vitamin B-12) 100 mcg PO BID 12/01/18 01/27/21 diphenhydramine-acetaminophen 2 tab PO BEDTIME PRN 12/01/18 01/27/21 [Tylenol PM Extra Strength] ferrous sulfate 325 mg PO DAILY 12/01/18 01/27/21 furosemide [Lasix] 20 mg PO QAM 12/01/18 01/27/21 lisinopril 2.5 mg PO DAILY 12/01/18 01/27/21 metoprolol succinate 100 mg PO QPM 12/01/18 01/27/21 pantoprazole 40 mg PO BID 12/01/18 01/27/21 sennosides-docusate sodium 1 tab PO DAILY PRN 12/01/18 01/27/21 [Senna-S] Allergies Allergy/AdvReac Type Severity Reaction Status Date / Time aspirin [ASPIRIN] Allergy Intermediate HIVES, Verified 04/14/21 09:20 EARS RING lactose [LACTOSE] Allergy Unknown Verified 04/14/21 09:20 Review of Systems Review of Systems ROS Unobtainable: All systems reviewed & are unremarkable except as noted in HPI and below Patient History Medical History (Updated 04/14/21 @ 13:05 by Kalyani Parrish DO) Acquired arteriovenous malformation of stomach Aortic valvular stenosis Atrial fibrillation Cholelithiasis Chronic obstructive pulmonary disease Fatigue Gallstone pancreatitis Generalized anxiety disorder History of gastrointestinal hemorrhage History of tobacco abuse Hyperlipidemia Hypertension Restrictive lung disease Rheumatoid arthritis Surgical History H/O sinus surgery History of aortic valve replacement History of colonoscopy History of esophagogastroduodenoscopy (EGD) History of sinus surgery History of tonsillectomy History of tricuspid valve annuloplasty Status post mitral valve annuloplasty Family History Father Heart disease Hypertension Mother Heart disease Sister Heart disease Cancer Social History household members: none Smoking Status: Former smoker Tobacco: How many years used: 60 alcohol intake: former substance use type: does not use Smoking Status: Former smoker alcohol intake frequency: holidays/special occasions only Substance Use Type: marijuana Exam Narrative Exam Narrative: GENERAL: Alert and oriented x three, well-nourished elderly appearing male in mild distress. HEENT: Head normocephalic, atraumatic, EOMI, pupils reactive, face symmetric, moist mucous membranes NECK: Supple, full range of motion CARDIOVASCULAR: Regular rate and rhythm without murmurs, rubs or gallops. RESPIRATORY: Breath sounds equal bilaterally, no wheezes rales or rhonchi. ABDOMEN: Soft, mild generalized tenderness. Normoactive bowel sounds all 4 quadrants. No guarding or rebound, rigidity, no mass. LUIGI is negative for gross blood or melena but patient does have positive stool occult. No obvious hemorrhoid is noted. : No CVA tenderness EXTREMITIES: Normal range of motion, no clubbing or edema. Neurovascularly intact NEUROLOGICAL: Cranial nerves II through XII grossly intact. Moving all extremities SKIN: Warm, dry, no petechiae, no rashes or lesions. Initial Vital Signs Initial Vital Signs: Vital Signs Temperature 98.1 F 04/14/21 09:15 Pulse Rate 72 04/14/21 09:15 Respiratory Rate 24 04/14/21 09:15 Blood Pressure 144/65 H 04/14/21 09:15 Pulse Oximetry 97 04/14/21 09:15 Course Orders Ordered: ED Orders 04/14/21 10:52 EKG-12 Lead Stat 04/14/21 11:03 Type and Screen Stat 04/14/21 11:31 CT abdomen pelvis w con Stat Discontinued Medications Sodium Chloride (Normal Saline 0.9%) 1,000 mls @ 150 mls/hr IV CONT ALICJA Last Infusion: 04/14/21 13:10 Dose: 0 mls/hr Documented by: Admin: 04/14/21 10:58 Dose: 150 mls/hr Documented by: GERARDO Reevaluation(s) Time: 13:02 Consultations Consultation #1: Dr. Nieves, recommends for follow up outpatient for repeat scope as patient labs appear stable along with vitals in department. We did discuss patient has history in EMR of AV malformation but cannot find any studies or scopes that reflect this otherwise. Unclear when/where he was diagnosed. Vital Signs Vital signs: Vital Signs - 8 hr 04/14/21 11:00 04/14/21 11:40 04/14/21 11:42 Pulse Rate 69 66 66 Respiratory Rate 18 20 20 Blood Pressure 120/58 L 120/56 L Pulse Oximetry 95 94 96 04/14/21 12:00 Pulse Rate 67 Respiratory Rate 23 Blood Pressure 110/57 L Pulse Oximetry 95 MDM - Male Genitourinary Lab Data Attestation: I reviewed the patient's lab results. Result diagrams: 04/14/21 09:28 04/14/21 09:28 Labs: Lab Results 04/14/21 04/14/21 04/14/21 Range/Units 09:16 09:28 09:28 WBC 9.8 (4.5-11.0) X10^3/uL RBC 4.63 (4.5-5.9) X10^6/uL Hgb 13.7 (13.5-17.5) g/dL Hct 42.2 (41-53) % MCV 91.3 (80-100) fL MCH 29.6 (26-34) PG MCHC 32.4 (30-36) % RDW 13.1 (11.6-14.8) % Plt Count 264 (150-400) X10^3/uL Neut % (Auto) 82.4 H (50-75) % Lymph % (Auto) 9.3 L (25-40) % Pender % (Auto) 7.4 (3-14) % Eos % (Auto) 0.2 L (2-4) % Baso % (Auto) 0.7 (0-2) % Neut # (Auto) 8100 H (7094-8445) /uL Lymph # (Auto) 900 L (3010-7986) /uL Pender # (Auto) 700 (0-900) /uL Eos # (Auto) 0 (0-450) /uL Baso # (Auto) 100 (0-100) /uL PT (10.1-12.7) SECONDS INR (0.9-1.3) APTT (26.4-36.2) SECONDS Sodium 136 L (137-145) mmol/L Potassium 4.3 (3.4-5.1) mmol/L Chloride 95 L (98-107) mmol/L Carbon Dioxide 32 (22-32) mmol/L BUN 15 (9-20) mg/dL Creatinine 0.91 (0.66-1.25) mg/dL Estimated GFR > 60.0 (>60) mL/min BUN/Creatinine Ratio 16.5 (6-22) Glucose 122 H (80-110) mg/dL Calcium 9.6 (8.4-10.2) mg/dL Total Bilirubin 0.6 (0.2-1.3) mg/dL AST 32 (17-59) IU/L ALT 21 (<50) IU/L Alkaline Phosphatase 83 (38-126) U/L Total Protein 7.7 (6.3-8.2) g/dL Albumin 4.6 (3.5-5.0) g/dL Globulin 3.1 (1.7-4.1) g/dL Albumin/Globulin Ratio 1.5 (1.0-2.8) Lipase 268 (23-300) U/L Urine RBC None seen (0-5/HPF) Urine WBC None seen (0-5/HPF) Urine Bacteria None seen (None) Ur Culture Indicated? Cult not indicated Micro UA Comment Microscopic normal Blood Type Antibody Screen 04/14/21 04/14/21 Range/Units 09:28 11:03 WBC (4.5-11.0) X10^3/uL RBC (4.5-5.9) X10^6/uL Hgb (13.5-17.5) g/dL Hct (41-53) % MCV (80-100) fL MCH (26-34) PG MCHC (30-36) % RDW (11.6-14.8) % Plt Count (150-400) X10^3/uL Neut % (Auto) (50-75) % Lymph % (Auto) (25-40) % Pender % (Auto) (3-14) % Eos % (Auto) (2-4) % Baso % (Auto) (0-2) % Neut # (Auto) (9227-3608) /uL Lymph # (Auto) (9149-0985) /uL Pender # (Auto) (0-900) /uL Eos # (Auto) (0-450) /uL Baso # (Auto) (0-100) /uL PT 11.7 (10.1-12.7) SECONDS INR 1.1 (0.9-1.3) APTT 32 (26.4-36.2) SECONDS Sodium (137-145) mmol/L Potassium (3.4-5.1) mmol/L Chloride (98-107) mmol/L Carbon Dioxide (22-32) mmol/L BUN (9-20) mg/dL Creatinine (0.66-1.25) mg/dL Estimated GFR (>60) mL/min BUN/Creatinine Ratio (6-22) Glucose (80-110) mg/dL Calcium (8.4-10.2) mg/dL Total Bilirubin (0.2-1.3) mg/dL AST (17-59) IU/L ALT (<50) IU/L Alkaline Phosphatase (38-126) U/L Total Protein (6.3-8.2) g/dL Albumin (3.5-5.0) g/dL Globulin (1.7-4.1) g/dL Albumin/Globulin Ratio (1.0-2.8) Lipase (23-300) U/L Urine RBC (0-5/HPF) Urine WBC (0-5/HPF) Urine Bacteria (None) Ur Culture Indicated? Micro UA Comment Blood Type O Positive Antibody Screen Negative Point of Care Testing Stool Occult Blood Positive Urine Dip Bedside Urine Glucose Negative Bedside Urine Bilirubin - Negative Bedside Urine Ketone - Negative Urine Specific [place] 1.015 Bedside Urine Occult Blood - Negative Bedside Urine pH 6.0 Bedside Urine Protein - Negative Bedside Urine Urobilinogen - Negative Bedside Urine Nitrite - Negative Bedside Urine Leukocytes - Negative Esterase Imaging Data CT scan - abdomen/pelvis: Radiologist's Impression: [address] [id number] Scan ReportSigned Patient: Marvin Diaz LMR#: [id number]: [id number]:[id number]/Sex: 85 / MDate of Service: 04/14/21Loc: EDAccession Number: [id number] Procedure: CT abdomen pelvis w con Ordering Provider: Kalyani Parrish D.O. PROCEDURE: CT ABDOMEN PELVIS W CON INDICATIONS: generalized abd pain, brb w/ BM today TECHNIQUE: After the administration of intravenous contrast, axial sections acquired from the lung bases to the pubic symphysis. Coronal and sagittal reformats were performed. For radiation dose reduction, the following was used: automated exposure control, adjustment of mA and/or kV according to patient size. COMPARISON: [facility], CT, CT ABDOMEN PELVIS W CON, 04/01/2021, 14:07. FINDINGS: Lower thorax: The lung bases are clear. Heart size normal. No hiatal hernia. Liver: Normal in size and attenuation. No contour deformity present. Biliary system: Cholecystectomy. No intra or extrahepatic bile duct dilation. Pancreas: Unremarkable without mass or inflammation evident. Spleen: Normal in size and density. Adrenals: Normal morphology and density. Reproductive system: Prostate is enlarged, similar prior exam. Urinary system: Normal renal size and attenuation. 1 cm simple left renal cortical cyst. No renal calculi, hydronephrosis, or solid mass present. Urinary bladder unremarkable. Gastrointestinal system: The bowel appears unremarkable with no evidence of bowel obstruction or inflammation. The stomach appears unremarkable. Multiple diverticula arise from the sigmoid colon without evidence of diverticulitis. Appendix: No findings to suggest acute appendicitis. Peritoneal spaces: No mesenteric or retroperitoneal adenopathy. No free air. No free fluid. Vasculature: Aortic atherosclerotic vascular calcification noted without evidence of aneurysm. Musculoskeletal: Normal bone mineralization. No acute fractures. Short right inguinal hernia remains unchanged from the prior without bowel involvement. L2 wedge-shaped compression fracture with 30 percent height loss is stable and sclerotic. IMPRESSION: 1. No acute CT abdomen or pelvic findings. 2. Stable advanced sigmoid diverticulosis without evidence of diverticulitis. 3. Chronic findings include right inguinal hernia without bowel involvement, chronic L2 compression fracture, atherosclerotic vascular calcification Dictated by: Faisal Pepe M.D. on 04/14/2021 at 10:52 Approved by: Faisal Pepe M.D. on 04/14/2021 at 11:07 ECG Data Attestation: I personally reviewed and interpreted this ECG as follows: Interpretation: Sinus rhythm occasional PVC. Rate of 72 [place] 168 QRS of 110 QTC 455. Nonspecific change. Patient does appear to have intermittent flutter waves. MDM Narrative Medical decision making narrative: This is an 85-year-old male comes emergency department with complaint of rectal bleeding. Patient is a poor historian but after review of the chart appears he has had a history of AV malformation per EMR as well as multiple medical issues. He does not appear to be currently anticoagulated. He did have a CT on 04/01/21 which was negative. Patient has not had any additional rectal bleeding. Vitals are stable. Patient's hemoglobin is stable. Discussed today's findings with patient a plan to DC home with follow-up for colonoscopy. Case was discussed with General surgery was happy to follow with patient. Patient states his daughter's could help him set this up are not shown help him facial take his medical care. Discharge Plan Departure Patient Disposition: Home Clinical Impression: Bright red blood per rectum Instructions: DI for Rectal Bleeding Activity Restrictions/Additional Instructions: Follow up with general surgery for recheck and possible coloscopy to evaluate for the exact source of bleeding. Call tomorrow for an appointment. I did speak with the general surgeon on-call, Dr. Nieves today about your case. You may continue home medications as prescribed. Please return for fevers, new or worsening abdominal pain, lightheadedness or passing out, new chest pain or shortness of breath, recurrent rectal bleeding, black stools, large clots or any other new or concerning symptoms. Prescriptions: No Action atorvastatin [Lipitor] 20 MG tablet 20 mg PO BEDTIME Qty: 0 RF: 0 lorazepam 1 MG tablet 1 mg PO DAILY PRN (Reason: Anxiety) Qty: 0 RF: 0 ascorbic acid (vitamin C) [Vitamin C] 500 mg Tablet 500 mg PO QID RF: 0 diltiazem HCl 180 MG capsule,extended release 24hr 360 mg PO DAILY RF: 0 metoprolol succinate [Toprol XL] 100 MG tablet extended release 24 hr 200 mg PO QAM RF: 0 cyanocobalamin (vitamin B-12) 100 mcg Tablet 100 mcg PO BID RF: 0 sennosides-docusate sodium [Senna-S] 8.6-50 mg Tablet 1 tab PO DAILY PRN (Reason: Constipation) RF: 0 metoprolol succinate 100 mg tablet extended release 24 hr 100 mg PO QPM RF: 0 acetaminophen 500 mg Tablet 500 mg PO Q6H PRN (Reason: Fever Or Pain) RF: 0 pantoprazole 40 mg tablet,delayed release (DR/EC) 40 mg PO BID RF: 0 ferrous sulfate 325 mg (65 mg iron) tablet 325 mg PO DAILY RF: 0 lisinopril 2.5 mg tablet 2.5 mg PO DAILY RF: 0 coenzyme Q10 [CoQ-10] 100 mg Capsule 300 mg PO DAILY RF: 0 cholecalciferol (vitamin D3) [Vitamin D3] 2,000 unit Capsule 2,000 unit PO BID RF: 0 Centrum Silver Men 300-600-300 mcg Tablet 1 tab PO DAILY RF: 0 furosemide [Lasix] 20 MG tablet 20 mg PO QAM RF: 0 diphenhydramine-acetaminophen [Tylenol PM Extra Strength] 25-500 mg Tablet 2 tab PO BEDTIME PRN (Reason: Sleep) RF: 0 Referrals: Adri Nieves MD [Physician] - Koby Leone MD [Primary Care Provider] -
[2021-04-14 10:10] LABS: Culture Indicated Urine Cult Not Indicated; Urine Comments Microscopic Normal
[2021-04-14] MEDS: SODIUM CHLORIDE 0.9% 1,000 ML 150 ML IV (10:58)
[2021-04-14 11:02] LABS: Add Manual Diff / Slide Review NO; Basophils Absolute Auto 100 /uL (0-100); Basophils Percent Auto 0.7 % (0-2); Eosinophils Absolute Auto 0 /uL (0-450); Eosinophils Percent Auto 0.2 % (2-4); Hematocrit 42.2 % (41-53); Hemoglobin 13.7 g/dL (13.5-17.5); Lymphocytes Absolute Auto 900 /uL (1100-4500); Lymphocytes Percent Auto 9.3 % (25-40); Mean Corpuscular HGB Conc 32.4 % (30-36); Mean Corpuscular Hemoglobin 29.6 PG (26-34); Mean Corpuscular Volume 91.3 fL (80-100); Monocytes Absolute Auto 700 /uL (0-900); Monocytes Percent Auto 7.4 % (3-14); Neutrophils Absolute Auto 8100 /uL (1500-7000); Neutrophils Percent Auto 82.4 % (50-75); Platelet Count 264 X10^3/uL (150-400); Red Blood Cell Count 4.63 X10^6/uL (4.5-5.9); Red Cell Distribution Width 13.1 % (11.6-14.8); White Blood Cell Count 9.8 X10^3/uL (4.5-11.0)
[2021-04-14 11:10] LABS: Alanine Aminotransferase 21 IU/L (<50); Albumin 4.6 g/dL (3.5-5.0); Albumin Globulin Ratio 1.5 (1.0-2.8); Alkaline Phosphatase 83 U/L (38-126); Aspartate Aminotransferase 32 IU/L (17-59); BUN Creatinine Ratio 16.5 (6-22); Bilirubin Total 0.6 mg/dL (0.2-1.3); Blood Urea Nitrogen 15 mg/dL (9-20); Calcium 9.6 mg/dL (8.4-10.2); Carbon Dioxide 32 mmol/L (22-32); Chloride 95 mmol/L (98-107); Estimated Glomerular Filt Rate > 60.0 mL/min (>60); Globulin 3.1 g/dL (1.7-4.1); Glucose 122 mg/dL (80-110); HEMOLYSIS < 15 (0-50); Lipase 268 U/L (23-300); Potassium 4.3 mmol/L (3.4-5.1); Sodium 136 mmol/L (137-145); Total Protein 7.7 g/dL (6.3-8.2)
[2021-04-14 11:24] LABS: INR 1.1 (0.9-1.3); Prothrombin Time 11.7 SECONDS (10.1-12.7)
[2021-04-14 11:27] LABS: PTT Partial Thromboplastin Tim 32 SECONDS (26.4-36.2)
--- NOTE | 2021-04-14 11:31 | DI.CT.S_ITS ---
PROCEDURE: CT ABDOMEN PELVIS W CON INDICATIONS: generalized abd pain, brb w/ BM today TECHNIQUE: After the administration of intravenous contrast, axial sections acquired from the lung bases to the pubic symphysis. Coronal and sagittal reformats were performed. For radiation dose reduction, the following was used: automated exposure control, adjustment of mA and/or kV according to patient size. COMPARISON: [facility], CT, CT ABDOMEN PELVIS W CON, 04/01/2021, 14:07. FINDINGS: Lower thorax: The lung bases are clear. Heart size normal. No hiatal hernia. Liver: Normal in size and attenuation. No contour deformity present. Biliary system: Cholecystectomy. No intra or extrahepatic bile duct dilation. Pancreas: Unremarkable without mass or inflammation evident. Spleen: Normal in size and density. Adrenals: Normal morphology and density. Reproductive system: Prostate is enlarged, similar prior exam. Urinary system: Normal renal size and attenuation. 1 cm simple left renal cortical cyst. No renal calculi, hydronephrosis, or solid mass present. Urinary bladder unremarkable. Gastrointestinal system: The bowel appears unremarkable with no evidence of bowel obstruction or inflammation. The stomach appears unremarkable. Multiple diverticula arise from the sigmoid colon without evidence of diverticulitis. Appendix: No findings to suggest acute appendicitis. Peritoneal spaces: No mesenteric or retroperitoneal adenopathy. No free air. No free fluid. Vasculature: Aortic atherosclerotic vascular calcification noted without evidence of aneurysm. Musculoskeletal: Normal bone mineralization. No acute fractures. Short right inguinal hernia remains unchanged from the prior without bowel involvement. L2 wedge-shaped compression fracture with 30 percent height loss is stable and sclerotic. IMPRESSION: 1. No acute CT abdomen or pelvic findings. 2. Stable advanced sigmoid diverticulosis without evidence of diverticulitis. 3. Chronic findings include right inguinal hernia without bowel involvement, chronic L2 compression fracture, atherosclerotic vascular calcification Dictated by: Faisal Pepe M.D. on 04/14/2021 at 10:52 Approved by: Faisal Pepe M.D. on 04/14/2021 at 11:07
== END 2021-04-14 13:36 | disposition home or self-care (01) ==
PROVIDERS: Emergency Provider Emergency Medicine; Family Provider Internal Medicine; PCP Internal Medicine
DX: K62.5 Hemorrhage of anus and rectum (principal); R10.84 Generalized abdominal pain
CPT/HCPCS: 36415; 74177; 80053; 81003; 81015; 82272; 83690; 85025; 85610; 85730; 86850; 86900; 86901; 93005; 93010; 96360; 96361; 99284; Q9967

== ENCOUNTER 2021-05-07 08:15 | Outpatient (RCR) | payer OTHER, SELFPAY ==
[2021-01-27 15:58] VITALS: BMI 25.4
--- NOTE | 2021-04-15 11:49 | PT.OIE ---
Current Diagnoses Low back pain (04/15/21) Past Medical History (Last Reviewed 04/14/21 @ 10:56 by Kalyani Parrish DO) Acquired arteriovenous malformation of stomach Aortic valvular stenosis Atrial fibrillation Cholelithiasis Chronic obstructive pulmonary disease Fatigue Gallstone pancreatitis Generalized anxiety disorder History of gastrointestinal hemorrhage History of tobacco abuse Hyperlipidemia Hypertension Restrictive lung disease Rheumatoid arthritis Past Surgical History (Last Reviewed 04/14/21 @ 10:56 by Kalyani Parrish DO) H/O sinus surgery History of aortic valve replacement History of colonoscopy History of esophagogastroduodenoscopy (EGD) History of sinus surgery History of tonsillectomy History of tricuspid valve annuloplasty Status post mitral valve annuloplasty Visit Care Team Role Provider Type Koby Leone MD Attending Provider Physician Family Provider Primary Care Provider Referring Provider Specialty: Internal Medicine Address: [address] [place] [address] Email: [email or web address] Initial Evaluation PT-OP-A Visit Information Start: 04/15/21 11:22 Freq: Status: Active Protocol: Document 04/15/21 11:23 (Rec: 04/15/21 11:49 [email or web address]) Out-Patient Physical Therapy Visit Information Visit Information Visit Type Initial Evaluation Visit Note dtr Medina attended session Visit Start Time 08:15 Visit Stop Time 09:00 Total Visit Minutes 45 Visit Number 199 Number of LATEX FASHIONS DESIGNER Visits 0 Evaluation Information Evaluation Date 04/15/21 Precautions Precautions recent TIA PT-OP-B Current Condition Start: 04/15/21 11:22 Freq: Status: Active Protocol: Document 04/15/21 11:23 (Rec: 04/15/21 11:49 [email or web address]) Current Condition History of Current Condition Onset Date early this year Current Complaints LBP, difficulty in standing and walking, decreased in balance History of Current Condition [place] is a 85 yo male here for his LBP started early this year. No known injury noted. He stated his pain is located across both side of lower lumbar region. Pain gets worse with standing, walking and extension. He has started using SPC for support especially for sit<> stand d/t LBP. He also noticed balance has been decreasing by using the SPC. Pt is a stomach sleeper and also likes to walk . Dtr Medina stated pt recently has a TIA a few months ago but symptoms are resolved. She also stated that pt has Alzheimer's with memory loss. Prior Treatments and Tests 03/19/21 x-ray @ [facility] IMPRESSION: Diffuse spondylosis and age- indeterminate mild L2 compression fracture. Please correlate to point tenderness and if necessary, MRI to assess for acute marrow edema could be performed. Multilevel spondylolisthesis as above. Personal Factors Other Personal Factors That May Effect Alzheimer's with memory loss. Therapy/Recovery previous valve replacement. previous TIA [place] fall risk PT-OP-C Subjective Start: 04/15/21 11:22 Freq: Status: Active Protocol: Document 04/15/21 11:23 HH (Rec: 04/15/21 11:49 [email or web address]) Patient Questionnaires Oswestry Low Back Index Oswestry Score 34 Oswestry Impairment 20 to 39% Impaired (Score 20- 39) OP-PT Pain Assessment Location LBP Pain Location Details bilateral LBP L4-L5 region Intensity 5 Scale Used Numeric (0 - 10) Description Aching Frequency Frequent Pain Aggravating Factors Activity,Standing,Walking Pain Alleviating Factors Lying Prone,Position,Sitting PT-OP-F Manual Assessment Start: 04/15/21 11:22 Freq: Status: Active Protocol: Document 04/15/21 11:23 HH (Rec: 04/15/21 11:49 [email or web address]) Manual Assessments Soft Tissue Assessment Soft Tissue Mobility Assessment hypertonicity noted at B QL Joint Mobility Assessment Joint Mobility Assessment palpable spinous process Protusion from L4-S1 region PT-OP-G Mobility & Gait Start: 04/15/21 11:22 Freq: Status: Active Protocol: Document 04/15/21 11:23 HH (Rec: 04/15/21 11:49 [email or web address]) OP Gait Assessment Assistive Devices Assistive Device Straight Cane Gait Deviations General Gait Pattern Decreased Stride Length, Decreased Feet Clearance, Flexed Trunk PT-OP-H Neuro Start: 04/15/21 11:22 Freq: Status: Active Protocol: Document 04/15/21 11:23 HH (Rec: 04/15/21 11:49 [email or web address]) Sensation Evaluation Gross Sensation Gross Sensation WNL Deep Tendon Reflex & Clonus Assessment Deep Tendon Reflex Bilateral Achilles Deep Tendon Reflex 2+ Normal Bilateral Patellar Deep Tendon Reflex 1+ Diminished PT-OP-J Posture/Palpation/Skin Start: 04/15/21 11:22 Freq: Status: Active Protocol: Document 04/15/21 11:23 (Rec: 04/15/21 11:49 [email or web address]) Posture Evaluation Position Standing Head/C-Spine Posture Forward Head Pelvis Posture Posterior Tilted PT-OP-K Range of Motion Start: 04/15/21 11:22 Freq: Status: Active Protocol: Document 04/15/21 11:23 HH (Rec: 04/15/21 11:49 [email or web address]) Lumbar Spine Range of Motion Lumbar Spine Active Degrees Comments toe touch test= 1 UE with SPC, very slow flexion up to knee level, pain noted recovering from flexed position extension= up to neutral position but significant pain at L5 region bilaterally. Hip Goniometric Range of Motion Hip Right Active Straight Leg Raise 75 Comments tightness noted at posterior chain as pt stated Left Active Testing Position Supine Straight Leg Raise 80 Comments tightness noted at posterior chain as pt stated PT-OP-L Special Tests Start: 04/15/21 11:22 Freq: Status: Active Protocol: Document 04/15/21 11:23 HH (Rec: 04/15/21 11:49 [email or web address]) Special Tests Lumbar Spine Special Tests Slump Test Results -ve Prone Press Up Test Results +VE Prone Instability Test Test Results +VE Comments significant LBP with hip extension in prone Straight Leg Raise Test Results -ve Vertical Spine Loading Test Results +VE PT-OP-M Strength Start: 04/15/21 11:22 Freq: Status: Active Protocol: Document 04/15/21 11:23 (Rec: 04/15/21 11:49 [email or web address]) Hip Strength Hip Manual Muscle Testing Right Flexion (L2) 4- Good- Extension (S1) 3+ Fair+ Abduction 4- Good- Adduction 4- Good- Comments significant LBP with hip extension in prone Left Flexion (L2) 4- Good- Extension (S1) 3+ Fair+ Abduction 4- Good- Adduction 4- Good- Comments significant LBP with hip extension in prone Knee Strength Knee Manual Muscle Testing Right Flexion (S2) 4+ Good+ Extension (L3) 4+ Good+ Left Flexion (S2) 4+ Good+ Extension (L3) 4+ Good+ Ankle/Foot Strength Ankle and Foot Manual Muscle Testing Right Dorsiflexion (L4) 5 Normal Plantarflexion (S1) 5 Normal Left Dorsiflexion (L4) 5 Normal Plantarflexion (S1) 5 Normal PT-OP-Q Treatments Start: 04/15/21 11:22 Freq: Status: Active Protocol: Document 04/15/21 11:23 HH (Rec: 04/15/21 11:49 HH [email or web address]) Therapeutic Exercises Sitting Exercises seated flexion Sitting Exercise Name lumbar flexion, toe grab Side bilateral Reps/Minutes 5 sec pull Comments for HEP PT-OP-T Assessment and Plan Start: 04/15/21 11:22 Freq: Status: Active Protocol: Document 04/15/21 11:23 HH (Rec: 04/15/21 11:49 [email or web address]) Physical Therapy Assessment Rehab Potential Rehabilitation Potential Good Evaluation Complexity Number of Personal Factors/Comorbidities 1-2 Number of Body Systems Impaired 1-2 Clinical Presentation at Evaluation Stable Impairments Impairments Activity Tolerance,Balance, Functional Activities, Functional Mobility,Gait,Pain, Posture,ROM,Soft Tissue Mobility,Strength,Transfers Other Concerns Fall Risk yes Barriers to Rehabilitation Alzheimer's with memory loss. previous valve replacement. previous TIA [place] fall risk Goals gait Impairment pt needs to use SPC for mobility d/t LBP Short Term Goal (STG) pt will show improved trunk stability and strenght which allows him to amb without using SPC at home STG Duration 5 weeks Nursing Home Goal (LTG) pt will show improved trunk stability and strenght which allows him to amb without using SPC in the community LTG Duration 10 weeks activity tolerance Impairment pt has severe pain to stand > 10 mins Short Term Goal (STG) pt will be able to stand > 20mins with pain no more than 3/10 STG Duration 5 weeks Nursing Home Goal (LTG) pt will be able to stand > 30 mins with pain no more than 2/ 10 which allows him to amb in the house and community without frequent sitting break . LTG Duration 10 weeks owestry Impairment pt scores 34 on Owestry Short Term Goal (STG) pt will show improved mobility and strength to score <25 on Owestry STG Duration 5 weeks It Quality Analyst Goal (LTG) pt will show improved mobility and strength to score <15 on Owestry LTG Duration 10 weeks Assessment Summary Assessment [place] is a 85 yo male here with her dtr Medina for his LBP started early this year. Upon assessment, pt's symptoms match his x-ray findings with multilevel spondylolisthesis and diffuse spondylosis. His symptoms primarily get worse with trunk extension who has difficulty recovering from a bend over/ seated position without support. (+Ve aniket sign). Fortunately, there's no neurological sign except pain and movement restriction. I believe pt will benefit from skilled therapy to focus on lumbar flexion based approach with core stabilization, which allows him to improve his overall mobility and possibly able to amb without using the cane. However, d/t pt's other cormobidities , this might be a long course of rehab. Physical Therapy Plan Frequency and Duration Frequency of Treatment 1-2x/wk Duration of Treatment 10 weeks Plan of Care Start Date 04/15/21 Plan of Care End Date 06/29/21 Therapeutic Interventions Therapeutic Interventions Aquatic Therapy,Balance Training,Gait Training,Home Exercise Program,Joint Mobilizations,Manual Therapy, Neuromuscular Re-education, Patient/Caregiver Education, Self-Care/Home Management,Soft Tissue Mobilization,Taping, Therapeutic Activities, Therapeutic Exercises Modalities Cold Pack/Ice Massage,Electric Stimulation,Hot Packs, Infrared Therapy,Traction- Mechanical,Ultrasound Next Visit Focus/Plan Next Note Type Treatment Note Next Visit Plan knee to chest, open book, trunk flexion based ex pelvic, abdominal brace technique bridging if tolerable
--- NOTE | 2021-04-15 11:49 | PT.OPPOC ---
Physical, Occupational & Speech Therapy At [facility] Current Diagnoses Low back pain (04/15/21) Visit Care Team Role Provider Type Koby Leone MD Attending Provider Physician Family Provider Primary Care Provider Referring Provider Specialty: Internal Medicine Address: [address] [place] [address], [id number] Email: [email or web address] Plan Of Care PT-OP-T Assessment and Plan Start: 04/15/21 11:22 Freq: Status: Active Protocol: Document 04/15/21 11:23 HH (Rec: 04/15/21 11:49 HH [email or web address]) Physical Therapy Assessment Rehab Potential Rehabilitation Potential Good Evaluation Complexity Number of Personal Factors/Comorbidities 1-2 Number of Body Systems Impaired 1-2 Clinical Presentation at Evaluation Stable Impairments Impairments Activity Tolerance,Balance, Functional Activities, Functional Mobility,Gait,Pain, Posture,ROM,Soft Tissue Mobility,Strength,Transfers Other Concerns Fall Risk yes Barriers to Rehabilitation Alzheimer's with memory loss. previous valve replacement. previous TIA [place] fall risk Goals gait Impairment pt needs to use SPC for mobility d/t LBP Short Term Goal (STG) pt will show improved trunk stability and strenght which allows him to amb without using SPC at home STG Duration 5 weeks Billposting Supervisor Goal (LTG) pt will show improved trunk stability and strenght which allows him to amb without using SPC in the community LTG Duration 10 weeks activity tolerance Impairment pt has severe pain to stand > 10 mins Short Term Goal (STG) pt will be able to stand > 20mins with pain no more than 3/10 STG Duration 5 weeks Alf Goal (LTG) pt will be able to stand > 30 mins with pain no more than 2/ 10 which allows him to amb in the house and community without frequent sitting break . LTG Duration 10 weeks owestry Impairment pt scores 34 on Owestry Short Term Goal (STG) pt will show improved mobility and strength to score <25 on Owestry STG Duration 5 weeks Billposting Supervisor Goal (LTG) pt will show improved mobility and strength to score <15 on Owestry LTG Duration 10 weeks Assessment Summary Assessment Marvin is a 85 yo male here with her dtr Medina for his LBP started early this year. Upon assessment, pt's symptoms match his x-ray findings with multilevel spondylolisthesis and diffuse spondylosis. His symptoms primarily get worse with trunk extension who has difficulty recovering from a bend over/ seated position without support. (+Ve aniket sign). Fortunately, there's no neurological sign except pain and movement restriction. I believe pt will benefit from skilled therapy to focus on lumbar flexion based approach with core stabilization, which allows him to improve his overall mobility and possibly able to amb without using the cane. However, d/t pt's other cormobidities , this might be a long course of rehab. Physical Therapy Plan Frequency and Duration Frequency of Treatment 1-2x/wk Duration of Treatment 10 weeks Plan of Care Start Date 04/15/21 Plan of Care End Date 06/29/21 Therapeutic Interventions Therapeutic Interventions Aquatic Therapy,Balance Training,Gait Training,Home Exercise Program,Joint Mobilizations,Manual Therapy, Neuromuscular Re-education, Patient/Caregiver Education, Self-Care/Home Management,Soft Tissue Mobilization,Taping, Therapeutic Activities, Therapeutic Exercises Modalities Cold Pack/Ice Massage,Electric Stimulation,Hot Packs, Infrared Therapy,Traction- Mechanical,Ultrasound Next Visit Focus/Plan Next Note Type Treatment Note Next Visit Plan knee to chest, open book, trunk flexion based ex pelvic, abdominal brace technique bridging if tolerable Plan of Care Dates Plan of Care Start Date 04/15/21 Plan of Care End Date 06/29/21 Electronically Signed by: Chani Diaz, PT 04/15/21 8013 Please Sign and Return: I have reviewed this Plan of Care and certify that the skilled therapy services above are required to meet the patient?s needs. Physician Signature Date Printed Name and Credentials Clinical Instructor Signature Printed Name and Credentials
--- NOTE | 2021-04-22 08:58 | PT.OTN ---
Current Diagnoses Low back pain (04/22/21) Physical Therapy Treatment Note PT-OP-A Visit Information Start: 04/15/21 11:22 Freq: Status: Active Protocol: Document 04/22/21 08:15 (Rec: 04/22/21 08:57 [id number]) Out-Patient Physical Therapy Visit Information Visit Information Visit Type Treatment Note Visit Start Time 08:17 Visit Stop Time 09:57 Total Visit Minutes 40 Visit Number 2/ Number of APPLIED COMPUTER SCIENCE PROFESSOR Visits 0 PT-OP-B Current Condition Start: 04/15/21 11:22 Freq: Status: Active Protocol: Document 04/15/21 11:23 HH (Rec: 04/15/21 11:49 [email or web address]) Current Condition History of Current Condition Onset Date early this year Current Complaints LBP, difficulty in standing and walking, decreased in balance History of Current Condition Marvin is a 85 yo male here for his LBP started early this year. No known injury noted. He stated his pain is located across both side of lower lumbar region. Pain gets worse with standing, walking and extension. He has started using SPC for support especially for sit<> stand d/t LBP. He also noticed balance has been decreasing by using the SPC. Pt is a stomach sleeper and also likes to walk . Dtr Medina stated pt recently has a TIA a few months ago but symptoms are resolved. She also stated that pt has Alzheimer's with memory loss. Prior Treatments and Tests 03/19/21 x-ray @ [facility] IMPRESSION: Diffuse spondylosis and age- indeterminate mild L2 compression fracture. Please correlate to point tenderness and if necessary, MRI to assess for acute marrow edema could be performed. Multilevel spondylolisthesis as above. Personal Factors Other Personal Factors That May Effect Alzheimer's with memory loss. Therapy/Recovery previous valve replacement. previous TIA [place] fall risk PT-OP-C Subjective Start: 04/15/21 11:22 Freq: Status: Active Protocol: Document 04/22/21 08:15 HH (Rec: 04/22/21 08:57 [id number]) OP-PT Subjective Patient Comments Patient Comments Im ready for PT and i have no questions so far. But i dont remember what's happening to my back PT-OP-F Manual Assessment Start: 04/15/21 11:22 Freq: Status: Active Protocol: Document 04/15/21 11:23 HH (Rec: 04/15/21 11:49 [email or web address]) Manual Assessments Soft Tissue Assessment Soft Tissue Mobility Assessment hypertonicity noted at B QL Joint Mobility Assessment Joint Mobility Assessment palpable spinous process Protusion from L4-S1 region PT-OP-G Mobility & Gait Start: 04/15/21 11:22 Freq: Status: Active Protocol: Document 04/15/21 11:23 HH (Rec: 04/15/21 11:49 [email or web address]) OP Gait Assessment Assistive Devices Assistive Device Straight Cane Gait Deviations General Gait Pattern Decreased Stride Length, Decreased Feet Clearance, Flexed Trunk PT-OP-H Neuro Start: 04/15/21 11:22 Freq: Status: Active Protocol: Document 04/15/21 11:23 HH (Rec: 04/15/21 11:49 [email or web address]) Sensation Evaluation Gross Sensation Gross Sensation WNL Deep Tendon Reflex & Clonus Assessment Deep Tendon Reflex Bilateral Achilles Deep Tendon Reflex 2+ Normal Bilateral Patellar Deep Tendon Reflex 1+ Diminished PT-OP-J Posture/Palpation/Skin Start: 04/15/21 11:22 Freq: Status: Active Protocol: Document 04/15/21 11:23 HH (Rec: 04/15/21 11:49 [email or web address]) Posture Evaluation Position Standing Head/C-Spine Posture Forward Head Pelvis Posture Posterior Tilted PT-OP-K Range of Motion Start: 04/15/21 11:22 Freq: Status: Active Protocol: Document 04/15/21 11:23 HH (Rec: 04/15/21 11:49 [email or web address]) Lumbar Spine Range of Motion Lumbar Spine Active Degrees Comments toe touch test= 1 UE with SPC, very slow flexion up to knee level, pain noted recovering from flexed position extension= up to neutral position but significant pain at L5 region bilaterally. Hip Goniometric Range of Motion Hip Right Active Straight Leg Raise 75 Comments tightness noted at posterior chain as pt stated Left Active Testing Position Supine Straight Leg Raise 80 Comments tightness noted at posterior chain as pt stated PT-OP-L Special Tests Start: 04/15/21 11:22 Freq: Status: Active Protocol: Document 04/15/21 11:23 HH (Rec: 04/15/21 11:49 [email or web address]) Special Tests Lumbar Spine Special Tests Slump Test Results -ve Prone Press Up Test Results +VE Prone Instability Test Test Results +VE Comments significant LBP with hip extension in prone Straight Leg Raise Test Results -ve Vertical Spine Loading Test Results +VE PT-OP-M Strength Start: 04/15/21 11:22 Freq: Status: Active Protocol: Document 04/15/21 11:23 HH (Rec: 04/15/21 11:49 HH [email or web address]) Hip Strength Hip Manual Muscle Testing Right Flexion (L2) 4- Good- Extension (S1) 3+ Fair+ Abduction 4- Good- Adduction 4- Good- Comments significant LBP with hip extension in prone Left Flexion (L2) 4- Good- Extension (S1) 3+ Fair+ Abduction 4- Good- Adduction 4- Good- Comments significant LBP with hip extension in prone Knee Strength Knee Manual Muscle Testing Right Flexion (S2) 4+ Good+ Extension (L3) 4+ Good+ Left Flexion (S2) 4+ Good+ Extension (L3) 4+ Good+ Ankle/Foot Strength Ankle and Foot Manual Muscle Testing Right Dorsiflexion (L4) 5 Normal Plantarflexion (S1) 5 Normal Left Dorsiflexion (L4) 5 Normal Plantarflexion (S1) 5 Normal PT-OP-Q Treatments Start: 04/15/21 11:22 Freq: Status: Active Protocol: Document 04/22/21 08:15 (Rec: 04/22/21 08:57 [email or web address]) Therapeutic Exercises Supine Exercises open book Reps/Minutes 8x2 Comments for HEP pelvic tilt Supine Exercise Name PPT only Reps/Minutes 10 x2 Comments for HEP knee to chest Reps/Minutes 10 sec hold x5 Comments for HEP Sitting Exercises seated flexion Sitting Exercise Name lumbar flexion, toe grab Side bilateral Reps/Minutes 5 sec pull Comments for HEP Manual Therapy Treatment Soft Tissue Mobilization QL Body Location B QL Mobilization Type Myofascial Release,Sustained Pressure,Trigger Point Release Intensity/Depth Moderate Body Position Sidelying Comments significant tonicty at QL L>R but reduced after PT-OP-T Assessment and Plan Start: 04/15/21 11:22 Freq: Status: Active Protocol: Document 04/22/21 08:15 HH (Rec: 04/22/21 08:57 [email or web address]) Physical Therapy Assessment Goals gait Impairment pt needs to use SPC for mobility d/t LBP Short Term Goal (STG) pt will show improved trunk stability and strenght which allows him to amb without using SPC at home STG Duration 5 weeks Vocal Artist Goal (LTG) pt will show improved trunk stability and strenght which allows him to amb without using SPC in the community LTG Duration 10 weeks activity tolerance Impairment pt has severe pain to stand > 10 mins Short Term Goal (STG) pt will be able to stand > 20mins with pain no more than 3/10 STG Duration 5 weeks Vocal Artist Goal (LTG) pt will be able to stand > 30 mins with pain no more than 2/ 10 which allows him to amb in the house and community without frequent sitting break . LTG Duration 10 weeks owestry Impairment pt scores 34 on Owestry Short Term Goal (STG) pt will show improved mobility and strength to score <25 on [place] STG Duration 5 weeks Vocal Artist Goal (LTG) pt will show improved mobility and strength to score <15 on Owestry LTG Duration 10 weeks Assessment Summary Assessment first tx session with pt and pt shows good understanding with the flexion based movements. However, pt has poor memory and need constant reminders of his HEP. I also spoke to his dtr at the end to ensure pt safely and correctly finish his HEP./ Physical Therapy Plan Frequency and Duration Frequency of Treatment 1-2x/wk Duration of Treatment 10 weeks Plan of Care Start Date 04/15/21 Plan of Care End Date 06/29/21 Therapeutic Interventions Therapeutic Interventions Aquatic Therapy,Balance Training,Gait Training,Home Exercise Program,Joint Mobilizations,Manual Therapy, Neuromuscular Re-education, Patient/Caregiver Education, Self-Care/Home Management,Soft Tissue Mobilization,Taping, Therapeutic Activities, Therapeutic Exercises Modalities Cold Pack/Ice Massage,Electric Stimulation,Hot Packs, Infrared Therapy,Traction- Mechanical,Ultrasound Next Visit Focus/Plan Next Note Type Treatment Note Next Visit Plan knee to chest, open book, trunk flexion based ex pelvic, abdominal brace technique bridging if tolerable
--- NOTE | 2021-04-24 08:57 | PT.OTN ---
Current Diagnoses Low back pain (04/24/21) Physical Therapy Treatment Note PT-OP-A Visit Information Start: 04/15/21 11:22 Freq: Status: Active Protocol: Document 04/24/21 08:15 HH (Rec: 04/24/21 08:57 HH [id number]) Out-Patient Physical Therapy Visit Information Visit Information Visit Type Treatment Note Visit Start Time 08:16 Visit Stop Time 09:00 Total Visit Minutes 44 Visit Number 3/ Number of [facility] Visits [facility] PT-OP-B Current Condition Start: 04/15/21 11:22 Freq: Status: Active Protocol: Document 04/15/21 11:23 HH (Rec: 04/15/21 11:49 HH [email or web address]) Current Condition History of Current Condition Onset Date early this year Current Complaints LBP, difficulty in standing and walking, decreased in balance History of Current Condition Marvin is a 85 yo male here for his LBP started early this year. No known injury noted. He stated his pain is located across both side of lower lumbar region. Pain gets worse with standing, walking and extension. He has started using SPC for support especially for sit<> stand d/t LBP. He also noticed balance has been decreasing by using the SPC. Pt is a stomach sleeper and also likes to walk . Dtr Medina stated pt recently has a TIA a few months ago but symptoms are resolved. She also stated that pt has Alzheimer's with memory loss. Prior Treatments and Tests 03/19/21 x-ray @ [facility] IMPRESSION: Diffuse spondylosis and age- indeterminate mild L2 compression fracture. Please correlate to point tenderness and if necessary, MRI to assess for acute marrow edema could be performed. Multilevel spondylolisthesis as above. Personal Factors Other Personal Factors That May Effect Alzheimer's with memory loss. Therapy/Recovery previous valve replacement. previous TIA [place] fall risk PT-OP-C Subjective Start: 04/15/21 11:22 Freq: Status: Active Protocol: Document 04/24/21 08:15 HH (Rec: 04/24/21 08:57 HH [id number]) OP-PT Subjective Patient Comments Patient Comments I had a good session from last session. I didnt get sore or anything. PT-OP-F Manual Assessment Start: 04/15/21 11:22 Freq: Status: Active Protocol: Document 04/15/21 11:23 HH (Rec: 04/15/21 11:49 [email or web address]) Manual Assessments Soft Tissue Assessment Soft Tissue Mobility Assessment hypertonicity noted at B QL Joint Mobility Assessment Joint Mobility Assessment palpable spinous process Protusion from L4-S1 region PT-OP-G Mobility & Gait Start: 04/15/21 11:22 Freq: Status: Active Protocol: Document 04/15/21 11:23 HH (Rec: 04/15/21 11:49 [email or web address]) OP Gait Assessment Assistive Devices Assistive Device Straight Cane Gait Deviations General Gait Pattern Decreased Stride Length, Decreased Feet Clearance, Flexed Trunk PT-OP-H Neuro Start: 04/15/21 11:22 Freq: Status: Active Protocol: Document 04/15/21 11:23 HH (Rec: 04/15/21 11:49 [email or web address]) Sensation Evaluation Gross Sensation Gross Sensation WNL Deep Tendon Reflex & Clonus Assessment Deep Tendon Reflex Bilateral Achilles Deep Tendon Reflex 2+ Normal Bilateral Patellar Deep Tendon Reflex 1+ Diminished PT-OP-J Posture/Palpation/Skin Start: 04/15/21 11:22 Freq: Status: Active Protocol: Document 04/15/21 11:23 HH (Rec: 04/15/21 11:49 [email or web address]) Posture Evaluation Position Standing Head/C-Spine Posture Forward Head Pelvis Posture Posterior Tilted PT-OP-K Range of Motion Start: 04/15/21 11:22 Freq: Status: Active Protocol: Document 04/15/21 11:23 HH (Rec: 04/15/21 11:49 [email or web address]) Lumbar Spine Range of Motion Lumbar Spine Active Degrees Comments toe touch test= 1 UE with SPC, very slow flexion up to knee level, pain noted recovering from flexed position extension= up to neutral position but significant pain at L5 region bilaterally. Hip Goniometric Range of Motion Hip Right Active Straight Leg Raise 75 Comments tightness noted at posterior chain as pt stated Left Active Testing Position Supine Straight Leg Raise 80 Comments tightness noted at posterior chain as pt stated PT-OP-L Special Tests Start: 04/15/21 11:22 Freq: Status: Active Protocol: Document 04/15/21 11:23 HH (Rec: 04/15/21 11:49 [email or web address]) Special Tests Lumbar Spine Special Tests Slump Test Results -ve Prone Press Up Test Results +VE Prone Instability Test Test Results +VE Comments significant LBP with hip extension in prone Straight Leg Raise Test Results -ve Vertical Spine Loading Test Results +VE PT-OP-M Strength Start: 04/15/21 11:22 Freq: Status: Active Protocol: Document 04/15/21 11:23 HH (Rec: 04/15/21 11:49 HH [email or web address]) Hip Strength Hip Manual Muscle Testing Right Flexion (L2) 4- Good- Extension (S1) 3+ Fair+ Abduction 4- Good- Adduction 4- Good- Comments significant LBP with hip extension in prone Left Flexion (L2) 4- Good- Extension (S1) 3+ Fair+ Abduction 4- Good- Adduction 4- Good- Comments significant LBP with hip extension in prone Knee Strength Knee Manual Muscle Testing Right Flexion (S2) 4+ Good+ Extension (L3) 4+ Good+ Left Flexion (S2) 4+ Good+ Extension (L3) 4+ Good+ Ankle/Foot Strength Ankle and Foot Manual Muscle Testing Right Dorsiflexion (L4) 5 Normal Plantarflexion (S1) 5 Normal Left Dorsiflexion (L4) 5 Normal Plantarflexion (S1) 5 Normal PT-OP-Q Treatments Start: 04/15/21 11:22 Freq: Status: Active Protocol: Document 04/24/21 08:15 HH (Rec: 04/24/21 08:57 HH [id number]) Gym Equipment Shuttle Recovery SL squat Resistance #37 Shuttle Recovery Platform Stable Therapeutic Exercises Supine Exercises bridging Reps/Minutes 3 sec hold x10x2 Comments no discomfort noted open book Reps/Minutes 8x2 pelvic tilt Supine Exercise Name PPT only Reps/Minutes 10 x2 knee to chest Reps/Minutes 10 sec hold x5 Standing Exercises sit to stand Side bilateral Reps/Minutes 10 x2 Comments cues on neutral spine. Gait Training Gait Activity ground level Device Used none Level of Assistance SBA Surface ground level Distance/Duration 200 ft x 2 Comments Pt got wobbly while talking at the same time. Manual Therapy Treatment Soft Tissue Mobilization QL Body Location B QL Mobilization Type Myofascial Release,Sustained Pressure,Trigger Point Release Intensity/Depth Moderate Body Position Sidelying Comments reduced tonicty at QL L>R but reduced after PT-OP-T Assessment and Plan Start: 04/15/21 11:22 Freq: Status: Active Protocol: Document 04/24/21 08:15 HH (Rec: 04/24/21 08:57 [id number]) Physical Therapy Assessment Goals gait Impairment pt needs to use SPC for mobility d/t LBP Short Term Goal (STG) pt will show improved trunk stability and strenght which allows him to amb without using SPC at home STG Duration 5 weeks [employer] Goal (LTG) pt will show improved trunk stability and strenght which allows him to amb without using SPC in the community LTG Duration 10 weeks activity tolerance Impairment pt has severe pain to stand > 10 mins Short Term Goal (STG) pt will be able to stand > 20mins with pain no more than 3/10 STG Duration 5 weeks Fdc Goal (LTG) pt will be able to stand > 30 mins with pain no more than 2/ 10 which allows him to amb in the house and community without frequent sitting break . LTG Duration 10 weeks owestry Impairment pt scores 34 on [place] Short Term Goal (STG) pt will show improved mobility and strength to score <25 on [place] STG Duration 5 weeks [employer] Climber Goal (LTG) pt will show improved mobility and strength to score <15 on [place] LTG Duration 10 weeks Assessment Summary Assessment Pt reports stretching home exercises make him feel better and more mobile. Educated pt to complete flexion based stretches prior to his walking routine. Also Added bridging, SL squat on shuttle and STS today and Physical Therapy Plan Frequency and Duration Frequency of Treatment 1-2x/wk Duration of Treatment 10 weeks Plan of Care Start Date 04/15/21 Plan of Care End Date 06/29/21 Therapeutic Interventions Therapeutic Interventions Aquatic Therapy,Balance Training,Gait Training,Home Exercise Program,Joint Mobilizations,Manual Therapy, Neuromuscular Re-education, Patient/Caregiver Education, Self-Care/Home Management,Soft Tissue Mobilization,Taping, Therapeutic Activities, Therapeutic Exercises Modalities Cold Pack/Ice Massage,Electric Stimulation,Hot Packs, Infrared Therapy,Traction- Mechanical,Ultrasound Next Visit Focus/Plan Next Note Type Treatment Note Next Visit Plan knee to chest, open book, trunk flexion based ex pelvic, abdominal brace technique bridging if tolerable
--- NOTE | 2021-04-29 11:01 | PT.OTN ---
Current Diagnoses Low back pain (04/29/21) Physical Therapy Treatment Note PT-OP-A Visit Information Start: 04/15/21 11:22 Freq: Status: Active Protocol: Document 04/29/21 10:20 MA (Rec: 04/29/21 11:01 MA [id number]) Out-Patient Physical Therapy Visit Information Visit Information Visit Type Treatment Note Visit Start Time 10:15 Visit Stop Time 10:55 Total Visit Minutes 40 Visit Number 4/ Number of [employer] Visits 1 PT-OP-B Current Condition Start: 04/15/21 11:22 Freq: Status: Active Protocol: Document 04/15/21 11:23 HH (Rec: 04/15/21 11:49 HH [email or web address]) Current Condition History of Current Condition Onset Date early this year Current Complaints LBP, difficulty in standing and walking, decreased in balance History of Current Condition Marvin is a 85 yo male here for his LBP started early this year. No known injury noted. He stated his pain is located across both side of lower lumbar region. Pain gets worse with standing, walking and extension. He has started using SPC for support especially for sit<> stand d/t LBP. He also noticed balance has been decreasing by using the SPC. Pt is a stomach sleeper and also likes to walk . Dtr Medina stated pt recently has a TIA a few months ago but symptoms are resolved. She also stated that pt has Alzheimer's with memory loss. Prior Treatments and Tests 03/19/21 x-ray @ [facility] IMPRESSION: Diffuse spondylosis and age- indeterminate mild L2 compression fracture. Please correlate to point tenderness and if necessary, MRI to assess for acute marrow edema could be performed. Multilevel spondylolisthesis as above. Personal Factors Other Personal Factors That May Effect Alzheimer's with memory loss. Therapy/Recovery previous valve replacement. previous TIA [place] fall risk PT-OP-C Subjective Start: 04/15/21 11:22 Freq: Status: Active Protocol: Document 04/29/21 10:20 MA (Rec: 04/29/21 11:01 MA [id number]) OP-PT Subjective Patient Comments Patient Comments My back pain is much improved . PT-OP-F Manual Assessment Start: 04/15/21 11:22 Freq: Status: Active Protocol: Document 04/15/21 11:23 HH (Rec: 04/15/21 11:49 HH [email or web address]) Manual Assessments Soft Tissue Assessment Soft Tissue Mobility Assessment hypertonicity noted at B QL Joint Mobility Assessment Joint Mobility Assessment palpable spinous process Protusion from L4-S1 region PT-OP-G Mobility & Gait Start: 04/15/21 11:22 Freq: Status: Active Protocol: Document 04/15/21 11:23 HH (Rec: 04/15/21 11:49 [email or web address]) OP Gait Assessment Assistive Devices Assistive Device Straight Cane Gait Deviations General Gait Pattern Decreased Stride Length, Decreased Feet Clearance, Flexed Trunk PT-OP-H Neuro Start: 04/15/21 11:22 Freq: Status: Active Protocol: Document 04/15/21 11:23 HH (Rec: 04/15/21 11:49 [email or web address]) Sensation Evaluation Gross Sensation Gross Sensation WNL Deep Tendon Reflex & Clonus Assessment Deep Tendon Reflex Bilateral Achilles Deep Tendon Reflex 2+ Normal Bilateral Patellar Deep Tendon Reflex 1+ Diminished PT-OP-J Posture/Palpation/Skin Start: 04/15/21 11:22 Freq: Status: Active Protocol: Document 04/15/21 11:23 HH (Rec: 04/15/21 11:49 [email or web address]) Posture Evaluation Position Standing Head/C-Spine Posture Forward Head Pelvis Posture Posterior Tilted PT-OP-K Range of Motion Start: 04/15/21 11:22 Freq: Status: Active Protocol: Document 04/15/21 11:23 HH (Rec: 04/15/21 11:49 [email or web address]) Lumbar Spine Range of Motion Lumbar Spine Active Degrees Comments toe touch test= 1 UE with SPC, very slow flexion up to knee level, pain noted recovering from flexed position extension= up to neutral position but significant pain at L5 region bilaterally. Hip Goniometric Range of Motion Hip Right Active Straight Leg Raise 75 Comments tightness noted at posterior chain as pt stated Left Active Testing Position Supine Straight Leg Raise 80 Comments tightness noted at posterior chain as pt stated PT-OP-L Special Tests Start: 04/15/21 11:22 Freq: Status: Active Protocol: Document 04/15/21 11:23 HH (Rec: 04/15/21 11:49 [email or web address]) Special Tests Lumbar Spine Special Tests Slump Test Results -ve Prone Press Up Test Results +VE Prone Instability Test Test Results +VE Comments significant LBP with hip extension in prone Straight Leg Raise Test Results -ve Vertical Spine Loading Test Results +VE PT-OP-M Strength Start: 04/15/21 11:22 Freq: Status: Active Protocol: Document 04/15/21 11:23 HH (Rec: 04/15/21 11:49 HH [email or web address]) Hip Strength Hip Manual Muscle Testing Right Flexion (L2) 4- Good- Extension (S1) 3+ Fair+ Abduction 4- Good- Adduction 4- Good- Comments significant LBP with hip extension in prone Left Flexion (L2) 4- Good- Extension (S1) 3+ Fair+ Abduction 4- Good- Adduction 4- Good- Comments significant LBP with hip extension in prone Knee Strength Knee Manual Muscle Testing Right Flexion (S2) 4+ Good+ Extension (L3) 4+ Good+ Left Flexion (S2) 4+ Good+ Extension (L3) 4+ Good+ Ankle/Foot Strength Ankle and Foot Manual Muscle Testing Right Dorsiflexion (L4) 5 Normal Plantarflexion (S1) 5 Normal Left Dorsiflexion (L4) 5 Normal Plantarflexion (S1) 5 Normal PT-OP-Q Treatments Start: 04/15/21 11:22 Freq: Status: Active Protocol: Document 04/29/21 10:20 MA (Rec: 04/29/21 11:01 MA [id number]) Therapeutic Exercises Supine Exercises bridging Reps/Minutes 3 sec hold x10x2 Comments no discomfort noted open book Reps/Minutes 8x2 pelvic tilt Supine Exercise Name PPT only Reps/Minutes 10 x2 knee to chest Reps/Minutes 10 sec hold x5 Sitting Exercises Piriformis Stretch Side bilateral Reps/Minutes 2x30 sec seated flexion Sitting Exercise Name lumbar flexion, toe grab Side bilateral Reps/Minutes 5 sec pull Comments for HEP Standing Exercises QL stretch Standing Exercise Name doorway QL stretch Side bilateral Reps/Minutes 2 min sit to stand Side bilateral Reps/Minutes 10 x2 Comments cues on neutral spine. Therapeutic Activity Therapeutic Activity Sleeping Comments Reviewed sleeping on stomach with pillow under stomach/hips for extra lumbar support. Manual Therapy Treatment Soft Tissue Mobilization QL Body Location B QL Mobilization Type Myofascial Release,Sustained Pressure,Trigger Point Release Intensity/Depth Moderate Body Position Sidelying Comments reduced tonicty at QL L>R but reduced after PT-OP-T Assessment and Plan Start: 04/15/21 11:22 Freq: Status: Active Protocol: Document 04/29/21 10:20 MA (Rec: 04/29/21 11:01 MA [id number]) Physical Therapy Assessment Goals gait Impairment pt needs to use SPC for mobility d/t LBP Short Term Goal (STG) pt will show improved trunk stability and strenght which allows him to amb without using SPC at home STG Duration 5 weeks Fpc Goal (LTG) pt will show improved trunk stability and strenght which allows him to amb without using SPC in the community LTG Duration 10 weeks activity tolerance Impairment pt has severe pain to stand > 10 mins Short Term Goal (STG) pt will be able to stand > 20mins with pain no more than 3/10 STG Duration 5 weeks Fpc Goal (LTG) pt will be able to stand > 30 mins with pain no more than 2/ 10 which allows him to amb in the house and community without frequent sitting break . LTG Duration 10 weeks owestry Impairment pt scores 34 on [place] Short Term Goal (STG) pt will show improved mobility and strength to score <25 on [place] STG Duration 5 weeks Fpc Goal (LTG) pt will show improved mobility and strength to score <15 on [place] LTG Duration 10 weeks Assessment Summary Assessment Pt requires cues during pelvic tilts to avoid lifting glutes off table. He has good relief from STM and requests continuing today. Reviewed sleeping position, having pt add pillow under hips/stomach for increased lumbar support with pt stating this feels really good. Pt has had less back pain recently and would continue to benefit from PT for improved posture and flexability to continue decreasing LBP. Physical Therapy Plan Frequency and Duration Frequency of Treatment 1-2x/wk Duration of Treatment 10 weeks Plan of Care Start Date 04/15/21 Plan of Care End Date 06/29/21 Therapeutic Interventions Therapeutic Interventions Aquatic Therapy,Balance Training,Gait Training,Home Exercise Program,Joint Mobilizations,Manual Therapy, Neuromuscular Re-education, Patient/Caregiver Education, Self-Care/Home Management,Soft Tissue Mobilization,Taping, Therapeutic Activities, Therapeutic Exercises Modalities Cold Pack/Ice Massage,Electric Stimulation,Hot Packs, Infrared Therapy,Traction- Mechanical,Ultrasound Next Visit Focus/Plan Next Note Type Treatment Note Next Visit Plan Possibly add piriformis stretch and QL stretch to HEP knee to chest, open book, trunk flexion based ex pelvic, abdominal brace technique bridging if tolerable
--- NOTE | 2021-05-01 09:44 | PT.OTN ---
Current Diagnoses Low back pain (05/01/21) Physical Therapy Treatment Note PT-OP-A Visit Information Start: 04/15/21 11:22 Freq: Status: Active Protocol: Document 05/01/21 08:59 MA (Rec: 05/01/21 09:44 MA [id number]) Out-Patient Physical Therapy Visit Information Visit Information Visit Type Treatment Note Visit Start Time 08:57 Visit Stop Time 09:38 Total Visit Minutes 41 Visit Number 5 Number of CLINICAL SUPPORT NURSE Visits 2 PT-OP-B Current Condition Start: 04/15/21 11:22 Freq: Status: Active Protocol: Document 04/15/21 11:23 HH (Rec: 04/15/21 11:49 HH [email or web address]) Current Condition History of Current Condition Onset Date early this year Current Complaints LBP, difficulty in standing and walking, decreased in balance History of Current Condition Marvin is a 85 yo male here for his LBP started early this year. No known injury noted. He stated his pain is located across both side of lower lumbar region. Pain gets worse with standing, walking and extension. He has started using SPC for support especially for sit<> stand d/t LBP. He also noticed balance has been decreasing by using the SPC. Pt is a stomach sleeper and also likes to walk . Dtr Medina stated pt recently has a TIA a few months ago but symptoms are resolved. She also stated that pt has Alzheimer's with memory loss. Prior Treatments and Tests 03/19/21 x-ray @ [facility] IMPRESSION: Diffuse spondylosis and age- indeterminate mild L2 compression fracture. Please correlate to point tenderness and if necessary, MRI to assess for acute marrow edema could be performed. Multilevel spondylolisthesis as above. Personal Factors Other Personal Factors That May Effect Alzheimer's with memory loss. Therapy/Recovery previous valve replacement. previous TIA NIKOLSKI fall risk PT-OP-C Subjective Start: 04/15/21 11:22 Freq: Status: Active Protocol: Document 05/01/21 08:59 MA (Rec: 05/01/21 09:44 MA [id number]) OP-PT Subjective Patient Comments Patient Comments My back continues to feel better every day PT-OP-F Manual Assessment Start: 04/15/21 11:22 Freq: Status: Active Protocol: Document 04/15/21 11:23 HH (Rec: 04/15/21 11:49 HH [email or web address]) Manual Assessments Soft Tissue Assessment Soft Tissue Mobility Assessment hypertonicity noted at B QL Joint Mobility Assessment Joint Mobility Assessment palpable spinous process Protusion from L4-S1 region PT-OP-G Mobility & Gait Start: 04/15/21 11:22 Freq: Status: Active Protocol: Document 04/15/21 11:23 HH (Rec: 04/15/21 11:49 [email or web address]) OP Gait Assessment Assistive Devices Assistive Device Straight Cane Gait Deviations General Gait Pattern Decreased Stride Length, Decreased Feet Clearance, Flexed Trunk PT-OP-H Neuro Start: 04/15/21 11:22 Freq: Status: Active Protocol: Document 04/15/21 11:23 HH (Rec: 04/15/21 11:49 [email or web address]) Sensation Evaluation Gross Sensation Gross Sensation WNL Deep Tendon Reflex & Clonus Assessment Deep Tendon Reflex Bilateral Achilles Deep Tendon Reflex 2+ Normal Bilateral Patellar Deep Tendon Reflex 1+ Diminished PT-OP-J Posture/Palpation/Skin Start: 04/15/21 11:22 Freq: Status: Active Protocol: Document 04/15/21 11:23 HH (Rec: 04/15/21 11:49 [email or web address]) Posture Evaluation Position Standing Head/C-Spine Posture Forward Head Pelvis Posture Posterior Tilted PT-OP-K Range of Motion Start: 04/15/21 11:22 Freq: Status: Active Protocol: Document 04/15/21 11:23 HH (Rec: 04/15/21 11:49 [email or web address]) Lumbar Spine Range of Motion Lumbar Spine Active Degrees Comments toe touch test= 1 UE with SPC, very slow flexion up to knee level, pain noted recovering from flexed position extension= up to neutral position but significant pain at L5 region bilaterally. Hip Goniometric Range of Motion Hip Right Active Straight Leg Raise 75 Comments tightness noted at posterior chain as pt stated Left Active Testing Position Supine Straight Leg Raise 80 Comments tightness noted at posterior chain as pt stated PT-OP-L Special Tests Start: 04/15/21 11:22 Freq: Status: Active Protocol: Document 04/15/21 11:23 HH (Rec: 04/15/21 11:49 [email or web address]) Special Tests Lumbar Spine Special Tests Slump Test Results -ve Prone Press Up Test Results +VE Prone Instability Test Test Results +VE Comments significant LBP with hip extension in prone Straight Leg Raise Test Results -ve Vertical Spine Loading Test Results +VE PT-OP-M Strength Start: 04/15/21 11:22 Freq: Status: Active Protocol: Document 04/15/21 11:23 HH (Rec: 04/15/21 11:49 HH [email or web address]) Hip Strength Hip Manual Muscle Testing Right Flexion (L2) 4- Good- Extension (S1) 3+ Fair+ Abduction 4- Good- Adduction 4- Good- Comments significant LBP with hip extension in prone Left Flexion (L2) 4- Good- Extension (S1) 3+ Fair+ Abduction 4- Good- Adduction 4- Good- Comments significant LBP with hip extension in prone Knee Strength Knee Manual Muscle Testing Right Flexion (S2) 4+ Good+ Extension (L3) 4+ Good+ Left Flexion (S2) 4+ Good+ Extension (L3) 4+ Good+ Ankle/Foot Strength Ankle and Foot Manual Muscle Testing Right Dorsiflexion (L4) 5 Normal Plantarflexion (S1) 5 Normal Left Dorsiflexion (L4) 5 Normal Plantarflexion (S1) 5 Normal PT-OP-Q Treatments Start: 04/15/21 11:22 Freq: Status: Active Protocol: Document 05/01/21 08:59 MA (Rec: 05/01/21 09:44 MA [id number]) Therapeutic Exercises Supine Exercises bridging Reps/Minutes 5 sec hold x10x2 Comments no discomfort noted open book Reps/Minutes 8x2 pelvic tilt Supine Exercise Name PPT only Reps/Minutes 10 x2 knee to chest Reps/Minutes 10 sec hold x5 Sitting Exercises HS stretch Sitting Exercise Name one leg extended Side bilateral Reps/Minutes 2x30 sec Piriformis Stretch Side bilateral Reps/Minutes 2x30 sec seated flexion Sitting Exercise Name lumbar flexion, toe grab Side bilateral Reps/Minutes 5 sec pull Comments for HEP Standing Exercises QL stretch Standing Exercise Name doorway QL stretch Side bilateral Reps/Minutes 2 min sit to stand Side bilateral Reps/Minutes 10 x2 Comments cues on neutral spine. Manual Therapy Treatment Soft Tissue Mobilization QL Body Location B QL Mobilization Type Myofascial Release,Sustained Pressure,Trigger Point Release Intensity/Depth Moderate Body Position Sidelying Comments reduced tonicty at QL L>R but reduced after PT-OP-T Assessment and Plan Start: 04/15/21 11:22 Freq: Status: Active Protocol: Document 05/01/21 08:59 MA (Rec: 05/01/21 09:44 MA [id number]) Physical Therapy Assessment Goals gait Impairment pt needs to use SPC for mobility d/t LBP Short Term Goal (STG) pt will show improved trunk stability and strenght which allows him to amb without using SPC at home STG Duration 5 weeks Farmworker Fur Goal (LTG) pt will show improved trunk stability and strenght which allows him to amb without using SPC in the community LTG Duration 10 weeks activity tolerance Impairment pt has severe pain to stand > 10 mins Short Term Goal (STG) pt will be able to stand > 20mins with pain no more than 3/10 STG Duration 5 weeks Longterm Goal (LTG) pt will be able to stand > 30 mins with pain no more than 2/ 10 which allows him to amb in the house and community without frequent sitting break . LTG Duration 10 weeks owestry Impairment pt scores 34 on Owestry Short Term Goal (STG) pt will show improved mobility and strength to score <25 on Owestry STG Duration 5 weeks Longterm Goal (LTG) pt will show improved mobility and strength to score <15 on Owestry LTG Duration 10 weeks Assessment Summary Assessment Marvin did better with pelvic tilt exercise and only needed one reminder today to not lift glutes from table. Added seated piriformis stretch to HEP and continued working on doorway QL stretch but found pt would be unsafe to complete at home at this time due to a loss of balance coming out of stretch; Will continue working on this stretch in therapy with the goal of adding to HEP after a few more sessions. Physical Therapy Plan Frequency and Duration Frequency of Treatment 1-2x/wk Duration of Treatment 10 weeks Plan of Care Start Date 04/15/21 Plan of Care End Date 06/29/21 Therapeutic Interventions Therapeutic Interventions Aquatic Therapy,Balance Training,Gait Training,Home Exercise Program,Joint Mobilizations,Manual Therapy, Neuromuscular Re-education, Patient/Caregiver Education, Self-Care/Home Management,Soft Tissue Mobilization,Taping, Therapeutic Activities, Therapeutic Exercises Modalities Cold Pack/Ice Massage,Electric Stimulation,Hot Packs, Infrared Therapy,Traction- Mechanical,Ultrasound Next Visit Focus/Plan Next Note Type Treatment Note Next Visit Plan Review new HEP- seated piriformis stretch continue with knee to chest, open book, trunk flexion based ex pelvic, abdominal brace technique, bridging, and doorway QL stretch
--- NOTE | 2021-05-07 08:59 | PT.OTN ---
Current Diagnoses Low back pain (05/07/21) Physical Therapy Treatment Note PT-OP-A Visit Information Start: 04/15/21 11:22 Freq: Status: Active Protocol: Document 05/07/21 08:17 HH (Rec: 05/07/21 08:57 [id number]) Out-Patient Physical Therapy Visit Information Visit Information Visit Type Treatment Note Visit Start Time 08:17 Visit Stop Time 09:00 Total Visit Minutes 43 Visit Number Number of FABRICATION OPERATOR Visits 2 PT-OP-B Current Condition Start: 04/15/21 11:22 Freq: Status: Active Protocol: Document 04/15/21 11:23 HH (Rec: 04/15/21 11:49 HH [email or web address]) Current Condition History of Current Condition Onset Date early this year Current Complaints LBP, difficulty in standing and walking, decreased in balance History of Current Condition Marvin is a 85 yo male here for his LBP started early this year. No known injury noted. He stated his pain is located across both side of lower lumbar region. Pain gets worse with standing, walking and extension. He has started using SPC for support especially for sit<> stand d/t LBP. He also noticed balance has been decreasing by using the SPC. Pt is a stomach sleeper and also likes to walk . Dtr Medina stated pt recently has a TIA a few months ago but symptoms are resolved. She also stated that pt has Alzheimer's with memory loss. Prior Treatments and Tests 03/19/21 x-ray @ [facility] IMPRESSION: Diffuse spondylosis and age- indeterminate mild L2 compression fracture. Please correlate to point tenderness and if necessary, MRI to assess for acute marrow edema could be performed. Multilevel spondylolisthesis as above. Personal Factors Other Personal Factors That May Effect Alzheimer's with memory loss. Therapy/Recovery previous valve replacement. previous TIA [id number] fall risk PT-OP-C Subjective Start: 04/15/21 11:22 Freq: Status: Active Protocol: Document 05/07/21 08:17 HH (Rec: 05/07/21 08:57 [id number]) OP-PT Subjective Patient Comments Patient Comments My back is doing very well so far and havent had any problems since i started PT Patient Reported Progress Improving PT-OP-F Manual Assessment Start: 04/15/21 11:22 Freq: Status: Active Protocol: Document 04/15/21 11:23 HH (Rec: 04/15/21 11:49 [email or web address]) Manual Assessments Soft Tissue Assessment Soft Tissue Mobility Assessment hypertonicity noted at B QL Joint Mobility Assessment Joint Mobility Assessment palpable spinous process Protusion from L4-S1 region PT-OP-G Mobility & Gait Start: 04/15/21 11:22 Freq: Status: Active Protocol: Document 04/15/21 11:23 HH (Rec: 04/15/21 11:49 [email or web address]) OP Gait Assessment Assistive Devices Assistive Device Straight Cane Gait Deviations General Gait Pattern Decreased Stride Length, Decreased Feet Clearance, Flexed Trunk PT-OP-H Neuro Start: 04/15/21 11:22 Freq: Status: Active Protocol: Document 04/15/21 11:23 HH (Rec: 04/15/21 11:49 [email or web address]) Sensation Evaluation Gross Sensation Gross Sensation WNL Deep Tendon Reflex & Clonus Assessment Deep Tendon Reflex Bilateral Achilles Deep Tendon Reflex 2+ Normal Bilateral Patellar Deep Tendon Reflex 1+ Diminished PT-OP-J Posture/Palpation/Skin Start: 04/15/21 11:22 Freq: Status: Active Protocol: Document 04/15/21 11:23 HH (Rec: 04/15/21 11:49 [email or web address]) Posture Evaluation Position Standing Head/C-Spine Posture Forward Head Pelvis Posture Posterior Tilted PT-OP-K Range of Motion Start: 04/15/21 11:22 Freq: Status: Active Protocol: Document 04/15/21 11:23 HH (Rec: 04/15/21 11:49 [email or web address]) Lumbar Spine Range of Motion Lumbar Spine Active Degrees Comments toe touch test= 1 UE with SPC, very slow flexion up to knee level, pain noted recovering from flexed position extension= up to neutral position but significant pain at L5 region bilaterally. Hip Goniometric Range of Motion Hip Right Active Straight Leg Raise 75 Comments tightness noted at posterior chain as pt stated Left Active Testing Position Supine Straight Leg Raise 80 Comments tightness noted at posterior chain as pt stated PT-OP-L Special Tests Start: 04/15/21 11:22 Freq: Status: Active Protocol: Document 04/15/21 11:23 HH (Rec: 04/15/21 11:49 [email or web address]) Special Tests Lumbar Spine Special Tests Slump Test Results -ve Prone Press Up Test Results +VE Prone Instability Test Test Results +VE Comments significant LBP with hip extension in prone Straight Leg Raise Test Results -ve Vertical Spine Loading Test Results +VE PT-OP-M Strength Start: 04/15/21 11:22 Freq: Status: Active Protocol: Document 04/15/21 11:23 HH (Rec: 04/15/21 11:49 [email or web address]) Hip Strength Hip Manual Muscle Testing Right Flexion (L2) 4- Good- Extension (S1) 3+ Fair+ Abduction 4- Good- Adduction 4- Good- Comments significant LBP with hip extension in prone Left Flexion (L2) 4- Good- Extension (S1) 3+ Fair+ Abduction 4- Good- Adduction 4- Good- Comments significant LBP with hip extension in prone Knee Strength Knee Manual Muscle Testing Right Flexion (S2) 4+ Good+ Extension (L3) 4+ Good+ Left Flexion (S2) 4+ Good+ Extension (L3) 4+ Good+ Ankle/Foot Strength Ankle and Foot Manual Muscle Testing Right Dorsiflexion (L4) 5 Normal Plantarflexion (S1) 5 Normal Left Dorsiflexion (L4) 5 Normal Plantarflexion (S1) 5 Normal PT-OP-Q Treatments Start: 04/15/21 11:22 Freq: Status: Active Protocol: Document 05/07/21 08:17 HH (Rec: 05/07/21 08:57 [id number]) Gym Equipment Shuttle Balance red Reps/Duration 8 mins Comments WBOS then NBOS w/o UE support. Therapeutic Exercises Supine Exercises bridging Supine Exercise Name with PPT Reps/Minutes 5 sec hold x10x2 Comments no discomfort noted pelvic tilt Supine Exercise Name PPT only Reps/Minutes 10 x2 Comments no cues needed knee to chest Reps/Minutes 10 sec hold x3 Comments for warm up Sitting Exercises Piriformis Stretch Side bilateral Reps/Minutes 2x30 sec seated flexion Sitting Exercise Name lumbar flexion, toe grab Side bilateral Reps/Minutes 5 sec pull Comments for HEP Standing Exercises sit to stand Standing Exercise Name UE on grab bar Side bilateral Reps/Minutes 10 x3 Comments cues on neutral spine. Manual Therapy Treatment Soft Tissue Mobilization QL Body Location B QL Mobilization Type Myofascial Release,Sustained Pressure,Trigger Point Release Intensity/Depth Moderate Body Position Sidelying Comments reduced tonicty at QL L>R PT-OP-T Assessment and Plan Start: 04/15/21 11:22 Freq: Status: Active Protocol: Document 05/07/21 08:17 (Rec: 05/07/21 08:57 [id number]) Physical Therapy Assessment Goals gait Impairment pt needs to use SPC for mobility d/t LBP Short Term Goal (STG) pt will show improved trunk stability and strenght which allows him to amb without using SPC at home STG Duration 5 weeks Senior Living Goal (LTG) pt will show improved trunk stability and strenght which allows him to amb without using SPC in the community LTG Duration 10 weeks activity tolerance Impairment pt has severe pain to stand > 10 mins Short Term Goal (STG) pt will be able to stand > 20mins with pain no more than 3/10 STG Duration 5 weeks Die Setter Goal (LTG) pt will be able to stand > 30 mins with pain no more than 2/ 10 which allows him to amb in the house and community without frequent sitting break . LTG Duration 10 weeks owestry Impairment pt scores 34 on Owestry Short Term Goal (STG) pt will show improved mobility and strength to score <25 on Owestry STG Duration 5 weeks Die Setter Goal (LTG) pt will show improved mobility and strength to score <15 on Owestry LTG Duration 10 weeks Assessment Summary Assessment pt didnt show [place] sign recovering from a bend over position. He also stated he has no LBP since started PT. Pt will continue benefit from lumbar ROM therex and overall strengthening. Physical Therapy Plan Frequency and Duration Frequency of Treatment 1-2x/wk Duration of Treatment 10 weeks Plan of Care Start Date 04/15/21 Plan of Care End Date 06/29/21 Therapeutic Interventions Therapeutic Interventions Aquatic Therapy,Balance Training,Gait Training,Home Exercise Program,Joint Mobilizations,Manual Therapy, Neuromuscular Re-education, Patient/Caregiver Education, Self-Care/Home Management,Soft Tissue Mobilization,Taping, Therapeutic Activities, Therapeutic Exercises Modalities Cold Pack/Ice Massage,Electric Stimulation,Hot Packs, Infrared Therapy,Traction- Mechanical,Ultrasound Next Visit Focus/Plan Next Note Type Treatment Note Next Visit Plan Review new HEP- seated piriformis stretch continue with knee to chest, open book, trunk flexion based ex pelvic, abdominal brace technique, bridging, and doorway QL stretch
--- NOTE | 2021-07-08 11:00 | PT.OPDS ---
Current Diagnoses Low back pain (05/07/21) Visit Care Team Role Provider Type Koby Leone MD Attending Provider Physician Family Provider Primary Care Provider Referring Provider Specialty: Internal Medicine Address: [address] [place] [address], [id number] Email: [email or web address] Visit Number Visit Number Discharge Summary PT-OP-T Assessment and Plan Start: 04/15/21 11:22 Freq: Status: Active Protocol: Document 07/08/21 11:00 (Rec: 07/08/21 11:00 [email or web address]) Physical Therapy Plan Discharge Physical Therapy Discharge Reasons No Longer Attending PT Discharge Comments pt is doing well with his LBP as his last visit note stated. He is no longer attending PT. DC from PT today
== END 2021-07-08 11:28 | disposition home or self-care (01) ==
LOC: PHYS 08:15
PROVIDERS: Family Provider Internal Medicine; PCP Internal Medicine; Referring Provider Internal Medicine; Visit Provider Internal Medicine
DX: M54.5 Low back pain (principal)
CPT/HCPCS: 97110; 97116; 97140; 97161

== ENCOUNTER 2021-06-27 14:38 | Emergency (ER) | payer OTHER, SELFPAY ==
[2021-01-27 15:58] VITALS: BMI 25.4
[2021-06-27] VITALS (13 sets, daily range): BP systolic 122–154; BP diastolic 59–74; PULSE 51–69; RESP 17–55; TEMP 36.5; O2SAT 93–98; BMI 22.4
--- NOTE | 2021-06-27 14:48 | DI.RAD.S_ITS ---
PROCEDURE: XR CHEST 1V INDICATIONS: chest pain TECHNIQUE: One view of the chest was acquired. COMPARISON: [facility], CR, XR CHEST 1V, 03/14/2020, 11:05. FINDINGS: Surgical changes and devices: None. Lungs and pleura: No focal consolidation. Stable left mid lung granuloma. Nodular opacity of the right mid lung, possibly a nipple shadow. No pleural effusions or pneumothorax. Mediastinum: Mediastinal contours appear normal. Postoperative changes sternotomy. Heart size is normal. Bones and chest wall: No suspicious bony lesions. Overlying soft tissues appear unremarkable. IMPRESSION: No acute cardiopulmonary process. Nodular opacity over the right mid lung, possibly a nipple shadow. Consider evaluation with a nonemergent chest CT on an outpatient basis. Dictated by: Cj Lindo M.D. on 06/27/2021 at 14:15 Approved by: Cj Lindo M.D. on 06/27/2021 at 14:17
[2021-06-27] MEDS: ASPIRIN 81 MG CHEW TAB 324 MG PO (14:54)
[2021-06-27] MEDS: SODIUM CHLORIDE 0.9% 1,000 ML 150 ML IV (14:54)
--- NOTE | 2021-06-27 15:07 | PC.NURSE ---
Addendum entered by Sumaya Rolle R.N. 06/27/21 15:13: pt not on 2LNC SATS 95% on RA Original Note: pt placed on 2L NC. states a feeling of increased generalized weakness over the past 10 days. Denies chest pain or discomfort at this time.
[2021-06-27 15:09] LABS: Alanine Aminotransferase 21 IU/L (<50); Albumin 4.4 g/dL (3.5-5.0); Albumin Globulin Ratio 1.5 (1.0-2.8); Alkaline Phosphatase 74 U/L (38-126); Aspartate Aminotransferase 29 IU/L (17-59); BUN Creatinine Ratio 17.4 (6-22); Bilirubin Total 0.3 mg/dL (0.2-1.3); Blood Urea Nitrogen 16 mg/dL (9-20); Calcium 9.4 mg/dL (8.4-10.2); Carbon Dioxide 32 mmol/L (22-32); Chloride 100 mmol/L (98-107); Creatine Kinase 30 U/L (55-170); Estimated Glomerular Filt Rate > 60.0 mL/min (>60); Glucose 116 mg/dL (80-110); HEMOLYSIS < 15 (0-50); Lipase 270 U/L (23-300); Potassium 4.5 mmol/L (3.4-5.1); Sodium 139 mmol/L (137-145); Total Protein 7.4 g/dL (6.3-8.2)
[2021-06-27 15:21] LABS: Troponin I < 0.012 ng/mL (0.01-0.034)
[2021-06-27 15:23] LABS: Add Manual Diff / Slide Review NO; Basophils Absolute Auto 100 /uL (0-100); Basophils Percent Auto 1.2 % (0-2); Eosinophils Absolute Auto 100 /uL (0-450); Eosinophils Percent Auto 0.9 % (2-4); Hematocrit 40.6 % (41-53); Hemoglobin 13.1 g/dL (13.5-17.5); Lymphocytes Absolute Auto 1300 /uL (1100-4500); Lymphocytes Percent Auto 11.5 % (25-40); Mean Corpuscular HGB Conc 32.2 % (30-36); Mean Corpuscular Hemoglobin 28.8 PG (26-34); Mean Corpuscular Volume 89.4 fL (80-100); Monocytes Absolute Auto 800 /uL (0-900); Monocytes Percent Auto 7.4 % (3-14); Neutrophils Absolute Auto 8900 /uL (1500-7000); Platelet Count 216 X10^3/uL (150-400); Red Blood Cell Count 4.54 X10^6/uL (4.5-5.9); Red Cell Distribution Width 13.5 % (11.6-14.8); White Blood Cell Count 11.3 X10^3/uL (4.5-11.0)
--- NOTE | 2021-06-27 16:15 | ED.GENADULT ---
HPI - General Adult General Chief complaint: Shortness of Breath/Dyspnea Stated complaint: POSS HEART ATTACK Time Seen by Provider: 06/27/21 14:41 Source: patient Mode of arrival: Ambulatory History of Present Illness HPI narrative: 85-year-old gentleman with a history of atrial fib-flutter, aortic stenosis, GI bleeding with gastric AVM in the past and contraindication to anticoagulation because of this presents complaining of feeling ?weak and strange? with onset at 11:00 a.m. today. He does note that his heart rate was irregular, who slightly more short of breath this morning but complains of no chest pain. He describes no fevers, cough or chills. He does not describe exertional dyspnea or orthopnea. He has not had any dark stools nor any nausea or vomiting. Related Data Home Medications Medication Instructions Recorded Confirmed atorvastatin 20 mg tablet (Lipitor) 20 mg PO BEDTIME #0 05/16/17 01/27/21 lorazepam 1 mg tablet 1 mg PO DAILY PRN #0 11/24/17 01/27/21 ascorbic acid (vitamin C) 500 mg 500 mg PO QID 05/21/18 01/27/21 tablet (Vitamin C) diltiazem HCl 180 mg 360 mg PO DAILY 05/21/18 01/27/21 capsule,extended release 24 hr metoprolol succinate 100 mg 200 mg PO QAM 05/21/18 01/27/21 tablet,extended release 24 hr (Toprol XL) acetaminophen 500 mg tablet 500 mg PO Q6H PRN 12/01/18 01/27/21 cholecalciferol (vitamin D3) 50 2,000 unit PO BID 12/01/18 01/27/21 mcg (2,000 unit) capsule (Vitamin D3) coenzyme Q10 100 mg capsule 300 mg PO DAILY 12/01/18 01/27/21 (CoQ-10) cyanocobalamin (vitamin B-12) 100 100 mcg PO BID 12/01/18 01/27/21 mcg tablet diphenhydramine 25 2 tab PO BEDTIME PRN 12/01/18 01/27/21 mg-acetaminophen 500 mg tablet (Tylenol PM Extra Strength) ferrous sulfate 325 mg (65 mg 325 mg PO DAILY 12/01/18 01/27/21 iron) tablet furosemide 20 mg tablet (Lasix) 20 mg PO QAM 12/01/18 01/27/21 lisinopril 2.5 mg tablet 2.5 mg PO DAILY 12/01/18 01/27/21 metoprolol succinate 100 mg 100 mg PO QPM 12/01/18 01/27/21 tablet,extended release 24 hr [id number] acid 300 1 tab PO DAILY 12/01/18 01/27/21 mcg-lycopene 600 mcg-lutein 300 mcg tablet (Centrum Silver Men) pantoprazole 40 mg tablet,delayed 40 mg PO BID 12/01/18 01/27/21 release sennosides 8.6 mg-docusate sodium 1 tab PO DAILY PRN 12/01/18 01/27/21 50 mg tablet (Senna-S) Allergies Allergy/AdvReac Type Severity Reaction Status Date / Time aspirin [ASPIRIN] Allergy Intermediate HIVES, Verified 06/27/21 14:49 EARS RING lactose [LACTOSE] Allergy Unknown Verified 06/27/21 14:49 Review of Systems Review of Systems Narrative: Remainder of complete review of systems is otherwise unremarkable except for that included in the HPI. Patient History Medical History (Updated 06/27/21 @ 17:34 by Kitty Ortiz MD) Acquired arteriovenous malformation of stomach Aortic valvular stenosis Atrial fibrillation Atrial flutter, paroxysmal Cholelithiasis Chronic obstructive pulmonary disease Fatigue Gallstone pancreatitis Generalized anxiety disorder History of gastrointestinal hemorrhage History of tobacco abuse Hyperlipidemia Hypertension Memory loss Restrictive lung disease Rheumatoid arthritis Transient cerebral ischemia Surgical History H/O sinus surgery History of aortic valve replacement History of colonoscopy History of esophagogastroduodenoscopy (EGD) History of sinus surgery History of tonsillectomy History of tricuspid valve annuloplasty Status post mitral valve annuloplasty Family History Father Heart disease Hypertension Mother Heart disease Sister Heart disease Cancer Social History household members: none Smoking Status: Former smoker Tobacco: How many years used: 60 alcohol intake: former substance use type: does not use Smoking Status: Former smoker alcohol intake frequency: holidays/special occasions only Substance Use Type: does not use Exam Narrative Exam Narrative: General: Healthy appearing, mild tachypnea. Well-nourished well-developed HEENT: Moist mucous membranes, normal sclera with reactive pupils, Neck: No JVD, supple Respiratory: Lungs are clear to auscultation, no wheezing no rales no rhonchi. Full and symmetrical air movement Cardiac: Regular rate and rhythm no murmurs no bruits Abdomen: Soft, nontender, good bowel tones, no flank pain Skin: Warm and dry, no rashes Neurologic: Grossly neurologically intact with no obvious asymmetries or abnormalities Extremities: No trauma, well perfused Psych: Cooperative, appropriate insight and affect Initial Vital Signs Initial Vital Signs: Vital Signs Pulse Rate 69 06/27/21 14:44 Respiratory Rate 33 H 06/27/21 14:44 Pulse Oximetry 98 06/27/21 14:44 Course Orders Ordered: ED Orders 06/27/21 14:45 Complete Blood Count AUTO DIFF Stat Comprehensive Metabolic Panel Stat Lipase Stat Troponin & CK Cardiac Panel Stat 06/27/21 14:48 XR chest 1V Stat EKG-12 Lead Stat 06/27/21 16:30 COVID19 -Nasal swab/Pre-Proc Stat Sodium Chloride (Normal Saline 0.9%) 1,000 mls @ 150 mls/hr IV CONT ALICJA Last Admin: 06/27/21 14:54 Dose: 150 mls/hr Documented by: NEGRA Discontinued Medications Aspirin (Aspirin 81 Mg Chew Tab) 324 mg PO NOW ONE Stop: 06/27/21 14:49 Last Admin: 06/27/21 14:54 Dose: 324 mg Documented by: NEGRA Vital Signs Vital signs: Vital Signs - 8 hr 06/27/21 14:44 06/27/21 14:45 06/27/21 14:46 Temperature 97.7 F Pulse Rate 69 67 67 Respiratory Rate 33 H 32 H 17 Blood Pressure 154/74 H 154/74 H Pulse Oximetry 98 96 98 06/27/21 15:00 06/27/21 15:01 06/27/21 15:30 Temperature Pulse Rate 67 67 51 L Respiratory Rate 27 H 24 20 Blood Pressure 131/63 Pulse Oximetry 97 97 95 06/27/21 15:31 06/27/21 16:00 06/27/21 16:01 Temperature Pulse Rate 65 66 66 Respiratory Rate 21 55 H 40 H Blood Pressure 124/60 122/65 Pulse Oximetry 95 94 93 Medical Decision Making Lab Data Result diagrams: 06/27/21 14:45 06/27/21 14:45 Labs: Lab Results 06/27/21 06/27/21 06/27/21 Range/Units 14:45 14:45 16:30 WBC 11.3 H (4.5-11.0) X10^3/uL RBC 4.54 (4.5-5.9) X10^6/uL Hgb 13.1 L (13.5-17.5) g/dL Hct 40.6 L (41-53) % MCV 89.4 (80-100) fL MCH 28.8 (26-34) PG MCHC 32.2 (30-36) % RDW 13.5 (11.6-14.8) % Plt Count 216 (150-400) X10^3/uL Neut % (Auto) 79.0 H (50-75) % Lymph % (Auto) 11.5 L (25-40) % [place] % (Auto) 7.4 (3-14) % Eos % (Auto) 0.9 L (2-4) % Baso % (Auto) 1.2 (0-2) % Neut # (Auto) 8900 H (1960-8545) /uL Lymph # (Auto) 1300 (8572-4593) /uL [place] # (Auto) 800 (0-900) /uL Eos # (Auto) 100 (0-450) /uL Baso # (Auto) 100 (0-100) /uL Sodium 139 (137-145) mmol/L Potassium 4.5 (3.4-5.1) mmol/L Chloride 100 (98-107) mmol/L Carbon Dioxide 32 (22-32) mmol/L BUN 16 (9-20) mg/dL Creatinine 0.92 (0.66-1.25) mg/dL Estimated GFR > 60.0 (>60) mL/min BUN/Creatinine Ratio 17.4 (6-22) Glucose 116 H (80-110) mg/dL Calcium 9.4 (8.4-10.2) mg/dL Total Bilirubin 0.3 (0.2-1.3) mg/dL AST 29 (17-59) IU/L ALT 21 (<50) IU/L Alkaline Phosphatase 74 (38-126) U/L Total Creatine Kinase 30 L (55-170) U/L CK-MB (CK-2) TNP CK-MB (CK-2) Rel Index TNP Troponin I < 0.012 (0.01-0.034) ng/mL Total Protein 7.4 (6.3-8.2) g/dL Albumin 4.4 (3.5-5.0) g/dL Globulin 3.0 (1.7-4.1) g/dL Albumin/Globulin Ratio 1.5 (1.0-2.8) Lipase 270 (23-300) U/L SARS-CoV-2 (PCR) Negative (Negative) Urine Dip Bedside Urine Glucose Negative Bedside Urine Bilirubin - Negative Bedside Urine Ketone - Negative Urine Specific [place] 1.020 Bedside Urine Occult Blood - Negative Bedside Urine pH 6.0 Bedside Urine Protein - Negative Bedside Urine Urobilinogen - Negative Bedside Urine Nitrite - Negative Bedside Urine Leukocytes - Negative Esterase Point of care testing: Urine Dip Bedside Urine Glucose Negative Bedside Urine Bilirubin - Negative Bedside Urine Ketone - Negative Urine Specific [place] 1.020 Bedside Urine Occult Blood - Negative Bedside Urine pH 6.0 Bedside Urine Protein - Negative Bedside Urine Urobilinogen - Negative Bedside Urine Nitrite - Negative Bedside Urine Leukocytes - Negative Esterase Imaging Data Chest x-ray: Radiologist's Impression: FINDINGS: Surgical changes and devices: None. Lungs and pleura: No focal consolidation. Stable left mid lung granuloma. Nodular opacity of the right mid lung, possibly a nipple shadow. No pleural effusions or pneumothorax. Mediastinum: Mediastinal contours appear normal. Postoperative changes sternotomy. Heart size is normal. Bones and chest wall: No suspicious bony lesions. Overlying soft tissues appear unremarkable. IMPRESSION: No acute cardiopulmonary process. Nodular opacity over the right mid lung, possibly a nipple shadow. Consider evaluation with a nonemergent chest CT on an outpatient basis. Dictated by: Cj Lindo M.D. on 06/27/2021 at 14:15 ECG Data Interpretation: Atrial flutter with 4-1 conduction at a rate of 68 Left axis deviation incomplete right bundle-branch block No acute ischemic changes MDM Narrative Medical decision making narrative: 85-year-old gentleman presents with shortness of breath and the complaint of feeling weak and strange. Mildly elevated white blood cell count but no evidence of acute GI bleeding with essentially unchanged H&H. He is in a rate controlled atrial flutter that has been documented previously. No evidence of acute coronary syndrome. Chest x-ray does not suggest consolidation, pneumonia, pneumothorax, other infection. COVID test is currently pending but he is fully vaccinated. Reports that now he is feeling well. Certainly the dyspnea may be related to the atrial flutter however it is rate controlled. 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 Urinalysis does not suggest acute urinary tract infection Patient is re-evaluated, respiratory rate is down significantly states that he feels a sense lay back to baseline. At this time I do not have a full explanation for the sensation noted however it does not appear to be an acute life-threatening etiology nor a reason for hospital admission at this time. Will be discharged home with instructions to return should he have worsening symptoms Discharge Plan Departure Patient Disposition: Home Clinical Impression: Atrial flutter, paroxysmal, Weakness Instructions: DI for Atrial Flutter Activity Restrictions/Additional Instructions: Thank you for coming in today Your workup is very reassuring. I did not find evidence of any type of bleeding, infection, collapsed lung or specific lung abnormalities, no heart attack and no significant kidney issues. Your COVID test was also negative. At this time, I do not have a full explanation for why did not feel so well this morning. At this point I am not finding any life-threatening abnormalities and I believe it is safe for you to go home. If you do find your having worsening symptoms please feel free to return to the ER Prescriptions: No Action atorvastatin [Lipitor] 20 MG tablet 20 mg PO BEDTIME Qty: 0 RF: 0 lorazepam 1 MG tablet 1 mg PO DAILY PRN (Reason: Anxiety) Qty: 0 RF: 0 ascorbic acid (vitamin C) [Vitamin C] 500 mg Tablet 500 mg PO QID RF: 0 diltiazem HCl 180 MG capsule,extended release 24hr 360 mg PO DAILY RF: 0 metoprolol succinate [Toprol XL] 100 MG tablet extended release 24 hr 200 mg PO QAM RF: 0 cyanocobalamin (vitamin B-12) 100 mcg Tablet 100 mcg PO BID RF: 0 sennosides-docusate sodium [Senna-S] 8.6-50 mg Tablet 1 tab PO DAILY PRN (Reason: Constipation) RF: 0 metoprolol succinate 100 mg tablet extended release 24 hr 100 mg PO QPM RF: 0 acetaminophen 500 mg Tablet 500 mg PO Q6H PRN (Reason: Fever Or Pain) RF: 0 pantoprazole 40 mg tablet,delayed release (DR/EC) 40 mg PO BID RF: 0 ferrous sulfate 325 mg (65 mg iron) tablet 325 mg PO DAILY RF: 0 lisinopril 2.5 mg tablet 2.5 mg PO DAILY RF: 0 coenzyme Q10 [CoQ-10] 100 mg Capsule 300 mg PO DAILY RF: 0 cholecalciferol (vitamin D3) [Vitamin D3] 2,000 unit Capsule 2,000 unit PO BID RF: 0 Centrum Silver Men 300-600-300 mcg Tablet 1 tab PO DAILY RF: 0 furosemide [Lasix] 20 MG tablet 20 mg PO QAM RF: 0 diphenhydramine-acetaminophen [Tylenol PM Extra Strength] 25-500 mg Tablet 2 tab PO BEDTIME PRN (Reason: Sleep) RF: 0 Referrals: Koby Leone MD [Primary Care Provider] -
[2021-06-27 17:05] LABS: COVID19 -Nasal RAPID Negative (Negative)
== END 2021-06-27 17:57 | disposition home or self-care (01) ==
PROVIDERS: Emergency Provider Emergency Medicine; Family Provider Internal Medicine; PCP Internal Medicine
DX: I48.92 Unspecified atrial flutter (principal); Z79.01 Long term (current) use of anticoagulants; R53.1 Weakness; R06.02 Shortness of breath; Z20.822 Contact with and (suspected) exposure to COVID-19
CPT/HCPCS: 36415; 71045; 80053; 81003; 82550; 83690; 84484; 85025; 87635; 93005; 93010; 96360; 96361; 99284; C9803

== ENCOUNTER 2021-07-18 08:18 | Inpatient (IN) | payer OTHER, SELFPAY ==
[2021-01-27 15:58] VITALS: BMI 25.4
[2021-07-18] VITALS (48 sets, daily range): BP systolic 64–130; BP diastolic 45–81; PULSE 70–149; RESP 13–42; TEMP 36.3–36.9; O2SAT 95–100; BMI 23.3
--- NOTE | 2021-07-18 08:21 | DI.RAD.S_ITS ---
PROCEDURE: XR CHEST 1V INDICATIONS: Palpitations TECHNIQUE: One view of the chest was acquired. COMPARISON: [facility], CR, XR CHEST 2V, 03/13/2020, 10:35. [facility], CR, XR CHEST 1V, 03/14/2020, 11:05. [facility], CR, XR CHEST 1V, 06/27/2021, 14:50. FINDINGS: Surgical changes and devices: Sternotomy wires are seen. Valve prostheses can be seen. Lungs and pleura: Lungs are clear, yet hyperexpanded. No pleural effusions or pneumothorax. Mediastinum: Mediastinal contours appear normal. Heart size is normal. Atherosclerotic calcification of the aortic arch is noted. Bones and chest wall: No suspicious bony lesions. Age-appropriate bony degenerative changes are seen. Overlying soft tissues appear unremarkable. IMPRESSION: Hyperexpanded lungs, without an acute cardiopulmonary process identified. Postoperative and degenerative changes are seen. Dictated by: Lyndon Carolina M.D. on 07/18/2021 at 7:57 Approved by: Lyndon Carolina M.D. on 07/18/2021 at 7:59
--- NOTE | 2021-07-18 08:26 | ED.GENADULT ---
HPI - General Adult General Chief complaint: Arrhythmia/Palpitations Stated complaint: not feeling well/tachy for ems Time Seen by Provider: 07/18/21 08:20 Source: patient Mode of arrival: EMS History of Present Illness HPI narrative: Patient is an 85-year-old male. History of TIAs/coronary artery disease/aortic valve replacement/AFib/a flutter. 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 Was brought in by EMS this morning after he contacted them because he states that he has not felt very well. He thinks that he started to feel poorly yesterday but has really been since midnight. He states he feels like his heart is beating fast. Is having some shortness of breath but he states this is been going on for several days. He denies chest pain. States he is taking his medications. No abdominal pain. No nausea vomiting. Has not tried anything for his symptoms prior to arrival. When EMS arrived they stated that he looked very well however was tachycardic. Because of this he was brought into the emergency department. Related Data Home Medications Medication Instructions Recorded Confirmed atorvastatin 20 mg tablet (Lipitor) 20 mg PO BEDTIME #0 05/16/17 01/27/21 lorazepam 1 mg tablet 1 mg PO DAILY PRN #0 11/24/17 01/27/21 ascorbic acid (vitamin C) 500 mg 500 mg PO QID 05/21/18 01/27/21 tablet (Vitamin C) diltiazem HCl 180 mg 360 mg PO DAILY 05/21/18 01/27/21 capsule,extended release 24 hr metoprolol succinate 100 mg 200 mg PO QAM 05/21/18 01/27/21 tablet,extended release 24 hr (Toprol XL) acetaminophen 500 mg tablet 500 mg PO Q6H PRN 12/01/18 01/27/21 cholecalciferol (vitamin D3) 50 2,000 unit PO BID 12/01/18 01/27/21 mcg (2,000 unit) capsule (Vitamin D3) coenzyme Q10 100 mg capsule 300 mg PO DAILY 12/01/18 01/27/21 (CoQ-10) cyanocobalamin (vitamin B-12) 100 100 mcg PO BID 12/01/18 01/27/21 mcg tablet diphenhydramine 25 2 tab PO BEDTIME PRN 12/01/18 01/27/21 mg-acetaminophen 500 mg tablet (Tylenol PM Extra Strength) ferrous sulfate 325 mg (65 mg 325 mg PO DAILY 12/01/18 01/27/21 iron) tablet furosemide 20 mg tablet (Lasix) 20 mg PO QAM 12/01/18 01/27/21 lisinopril 2.5 mg tablet 2.5 mg PO DAILY 12/01/18 01/27/21 metoprolol succinate 100 mg 100 mg PO QPM 12/01/18 01/27/21 tablet,extended release 24 hr phpbkxdm-hne-wemlr acid 300 1 tab PO DAILY 12/01/18 01/27/21 mcg-lycopene 600 mcg-lutein 300 mcg tablet (Centrum Silver Men) pantoprazole 40 mg tablet,delayed 40 mg PO BID 12/01/18 01/27/21 release sennosides 8.6 mg-docusate sodium 1 tab PO DAILY PRN 12/01/18 01/27/21 50 mg tablet (Senna-S) Allergies Allergy/AdvReac Type Severity Reaction Status Date / Time aspirin [ASPIRIN] Allergy Intermediate HIVES, Verified 06/27/21 14:49 EARS RING lactose [LACTOSE] Allergy Unknown Verified 06/27/21 14:49 Review of Systems Constitutional Constitutional: Denies fever(s) and Denies headache(s) Eyes Eyes: Reports system reviewed and no additional complaints, except as documented ENT Ears, Nose, Mouth, and Throat: Denies headache(s) Cardiovascular Cardiovascular: Denies chest pain, Reports rapid heart rate and Reports dyspnea Respiratory Respiratory: Denies cough and Reports dyspnea Gastrointestinal Gastrointestinal: Denies abdominal pain, Denies nausea and Denies vomiting Genitourinary Genitourinary: Reports system reviewed and no additional complaints, except as documented Musculoskeletal Musculoskeletal: Reports system reviewed and no additional complaints, except as documented Integumentary/Breasts Skin/Breast: Denies rash Neurologic Neurologic: Denies headache(s) Endocrine Endocrine: Reports system reviewed and no additional complaints, except as documented Hematologic/Lymphatic On Anticoagulants: No Allergic/Immunologic Allergic/Immunologic: Reports system reviewed and no additional complaints, except as documented Patient History Medical History Acquired arteriovenous malformation of stomach Aortic valvular stenosis Atrial fibrillation Atrial flutter, paroxysmal Cholelithiasis Chronic obstructive pulmonary disease Fatigue Gallstone pancreatitis Generalized anxiety disorder History of gastrointestinal hemorrhage History of tobacco abuse Hyperlipidemia Hypertension Memory loss Restrictive lung disease Rheumatoid arthritis Transient cerebral ischemia Surgical History H/O sinus surgery History of aortic valve replacement History of colonoscopy History of esophagogastroduodenoscopy (EGD) History of sinus surgery History of tonsillectomy History of tricuspid valve annuloplasty Status post mitral valve annuloplasty Family History Father Heart disease Hypertension Mother Heart disease Sister Heart disease Cancer Social History household members: none Smoking Status: Former smoker Tobacco: How many years used: 60 alcohol intake: former substance use type: does not use Smoking Status: Former smoker alcohol intake frequency: holidays/special occasions only Substance Use Type: does not use Exam Initial Vital Signs Initial Vital Signs: Vital Signs Temperature 98.1 F 07/18/21 08:18 Pulse Rate 144 H 07/18/21 08:18 Respiratory Rate 18 07/18/21 08:18 Blood Pressure 118/61 07/18/21 08:18 Pulse Oximetry 99 07/18/21 08:18 Const General: cooperative, comfortable, well developed, well groomed, No acute distress and No ill appearing HENMT Head: normal to inspection and normocephalic Eyes General: appearance normal, both eyes and all related structures Neck Neck: normal visual inspection Resp Effort & Inspection: normal respiratory effort Auscultation: clear to auscultation bilaterally Cardio Rate: tachycardic Rhythm: regular rhythm Heart Sounds: murmur GI Inspection: normal to inspection Palpation: soft and No tender Skin General: no rashes or lesions noted Neuro General: patient alert, patient awake and moves all extremities Speech: speech normal Gait: normal gait Sensory Exam: no sensory deficits noted Other: Patient is oriented to place and person and date but does not know the year or the month. Extrem General: normal to inspection and capillary refill normal Psych Appearance: grossly normal and well kempt Scores GCS [place] coma scale eye opening: Spontaneous [place] coma scale verbal response: Confused [place] coma scale motor response: Obey commands [place] coma scale total score: 14 Course Orders Ordered: ED Orders 07/18/21 07:40 Complete Blood Count AUTO DIFF Stat Comprehensive Metabolic Panel Stat Lipase Stat NT-proBNP (BNP-Adult 18+) Stat Troponin & CK Cardiac Panel Stat 07/18/21 08:21 XR chest 1V Stat 07/18/21 08:31 EKG-12 Lead Stat 07/18/21 08:40 COVID19 - ADMIT ([employer] swab/PCR) Stat Sodium Chloride (Normal Saline 0.9%) 1,000 mls @ 125 mls/hr IV CONT ALICJA Last Admin: 07/18/21 08:28 Dose: 125 mls/hr Documented by: GERARDO Discontinued Medications Labetalol HCl (Labetalol 20 Mg/4 Ml Syringe) 5 mg IV NOW ONE Stop: 07/18/21 08:23 Last Admin: 07/18/21 08:28 Dose: 5 mg Documented by: GERARDO Vital Signs Vital signs: Vital Signs - 8 hr 07/18/21 08:18 07/18/21 08:26 07/18/21 08:28 Temperature 98.1 F Pulse Rate 144 H 145 H 145 H Respiratory Rate 18 16 Blood Pressure 118/61 130/70 Pulse Oximetry 99 99 07/18/21 08:29 07/18/21 08:30 07/18/21 08:35 Temperature Pulse Rate 144 H 144 H 141 H Respiratory Rate 13 14 18 Blood Pressure 130/70 121/56 L 92/52 L Pulse Oximetry 99 99 100 07/18/21 08:40 07/18/21 08:45 07/18/21 08:47 Temperature Pulse Rate 143 H 143 H 143 H Respiratory Rate 16 16 14 Blood Pressure 70/45 L Pulse Oximetry 99 99 99 07/18/21 08:48 07/18/21 08:50 07/18/21 08:55 Temperature Pulse Rate 144 H 144 H 145 H Respiratory Rate 17 15 24 Blood Pressure 83/53 L 78/53 L 82/56 L Pulse Oximetry 99 99 100 07/18/21 09:00 07/18/21 09:05 07/18/21 09:10 Temperature Pulse Rate 145 H 146 H 146 H Respiratory Rate 42 H 15 18 Blood Pressure 104/62 101/58 L Pulse Oximetry 100 99 97 07/18/21 09:11 07/18/21 09:15 07/18/21 09:19 Temperature Pulse Rate 146 H 148 H 149 H Respiratory Rate 18 20 Blood Pressure 114/64 109/57 L 109/57 L Pulse Oximetry 99 98 07/18/21 09:20 Temperature Pulse Rate 148 H Respiratory Rate 20 Blood Pressure 113/68 Pulse Oximetry 99 Medical Decision Making Medical Records Medical records reviewed: Yes I reviewed the patient's medical records. Lab Data Lab results reviewed: Yes I reviewed the patient's lab results. Result diagrams: 07/18/21 07:40 07/18/21 07:40 Labs: Lab Results 07/18/21 07/18/21 07/18/21 Range/Units 07:40 07:40 07:40 WBC 14.7 H (4.5-11.0) X10^3/uL RBC 3.24 L (4.5-5.9) X10^6/uL Hgb 9.2 L (13.5-17.5) g/dL Hct 28.9 L (41-53) % MCV 89.3 (80-100) fL MCH 28.5 (26-34) PG MCHC 31.9 (30-36) % RDW 14.2 (11.6-14.8) % Plt Count 307 (150-400) X10^3/uL Neut % (Auto) 76.8 H (50-75) % Lymph % (Auto) 16.4 L (25-40) % [place] % (Auto) 6.1 (3-14) % Eos % (Auto) 0.3 L (2-4) % Baso % (Auto) 0.4 (0-2) % Neut # (Auto) 43897 H (7837-9057) /uL Lymph # (Auto) 2400 (7965-5495) /uL [place] # (Auto) 900 (0-900) /uL Eos # (Auto) 0 (0-450) /uL Baso # (Auto) 100 (0-100) /uL Sodium 138 (137-145) mmol/L Potassium 4.7 (3.4-5.1) mmol/L Chloride 104 (98-107) mmol/L Carbon Dioxide 27 (22-32) mmol/L BUN 47 H (9-20) mg/dL Creatinine 0.79 (0.66-1.25) mg/dL Estimated GFR > 60.0 (>60) mL/min BUN/Creatinine Ratio 59.5 H (6-22) Glucose 205 H (80-110) mg/dL Calcium 8.7 (8.4-10.2) mg/dL Total Bilirubin 0.3 (0.2-1.3) mg/dL AST 24 (17-59) IU/L ALT 16 (<50) IU/L Alkaline Phosphatase 50 (38-126) U/L Total Creatine Kinase 24 L (55-170) U/L CK-MB (CK-2) TNP CK-MB (CK-2) Rel Index TNP Troponin I < 0.012 (0.01-0.034) ng/mL Total Protein 6.2 L (6.3-8.2) g/dL Albumin 3.9 (3.5-5.0) g/dL Globulin 2.3 (1.7-4.1) g/dL Albumin/Globulin Ratio 1.7 (1.0-2.8) Lipase 142 (23-300) U/L Urine Dip Bedside Urine Glucose Negative Bedside Urine Bilirubin - Negative Bedside Urine Ketone - Negative Urine Specific [place] 1.015 Bedside Urine Occult Blood - Negative Bedside Urine pH 6 Bedside Urine Protein - Negative Bedside Urine Urobilinogen - Negative Bedside Urine Nitrite - Negative Bedside Urine Leukocytes - Negative Esterase Point of care testing: Urine Dip Bedside Urine Glucose Negative Bedside Urine Bilirubin - Negative Bedside Urine Ketone - Negative Urine Specific [place] 1.015 Bedside Urine Occult Blood - Negative Bedside Urine pH 6 Bedside Urine Protein - Negative Bedside Urine Urobilinogen - Negative Bedside Urine Nitrite - Negative Bedside Urine Leukocytes - Negative Esterase Imaging Data Chest x-ray: Radiologist's Impression: [place] [id number] XRay Report Signed Patient: Marvin Diaz MR#: [id number] : 1935 Acct:[id number] Age/Sex: 85 / M Date of Service: 07/18/21 Loc: ED Accession Number: [id number] ?? Procedure: XR chest 1V Ordering Provider: Bladimir Aviles D.O. PROCEDURE:? XR CHEST 1V ? INDICATIONS:? Palpitations ? TECHNIQUE:? One view of the chest was acquired.? ? COMPARISON:? [facility], CR, XR CHEST 2V, 03/13/2020, 10:35.? [facility], CR, XR CHEST 1V, 03/14/2020, 11:05.? [facility], CR, XR CHEST 1V, 06/27/2021, 14:50. ? FINDINGS:? ? Surgical changes and devices:? Sternotomy wires are seen.? Valve prostheses can be seen. ? Lungs and pleura:? Lungs are clear, yet hyperexpanded.? No pleural effusions or pneumothorax.? ? Mediastinum:? Mediastinal contours appear normal.? Heart size is normal.? Atherosclerotic calcification of the aortic arch is noted.? ? Bones and chest wall:? No suspicious bony lesions.? Age-appropriate bony degenerative changes are seen.? ? Overlying soft tissues appear unremarkable.? ? ? IMPRESSION:? ? Hyperexpanded lungs, without an acute cardiopulmonary process identified. ? Postoperative and degenerative changes are seen.? ? ? Dictated by: Lyndon Carolina M.D. on 07/18/2021 at 7:57 ? ? Approved by: Lyndon Carolina M.D. on 07/18/2021 at 7:59? ECG Data Attestation: I personally reviewed and interpreted this ECG as follows: Interpretation: Tachycardia Ventricular rate 145 Appears to be a flutter No ST T wave changes MDM Narrative Medical decision making narrative: Patient has no chest pain. Is feeling his heart beating fast. Is somewhat confused about the month and the year however this seems to be baseline per my review of his medical records. He does have leukocytosis but does not have any specific signs of infection today. His hemoglobin hematocrit are lower today compared to his last visit. He reports no change in his stools. Patient thinks he did not take any of his medications this morning. He was given 5 mg of IV labetalol however this did not change his heart rate. It did drop his blood pressure. He had no mental status changes regarding this. No other symptoms when his blood pressure dropped. No fluid bolus was given and his blood pressure improved on its own. The blood pressure that is recorded as 64/47 at 0920 in the morning is not correct. He was not hypotensive at that time. Nursing staff unable to remove this blood pressure from the EMR. His EKG today is most consistent with a flutter. He has a history of this. Not a candidate for cardioversion given his lack of anticoagulation status in the uncertainty as to when his symptoms started. Discussed the case with Dr. Carrillo with Internal Medicine who will admit for further evaluation and treatment. I did discuss the admission with the patient. He expressed understanding and agreement. Critical Care Time Critical Care Time Critical Care Time: Yes Total Critical Care Time: 35 Attestation: The high probability of a clinically significant, sudden or life threatening deterioration of the cardiovascular system(s) required my full and direct attention, intervention and personal management. The aggregate critical care time was35 minutes. This time is in addition to time spent performing reported procedures but includes the following: [x] Data Review and interpretation [x] Patient assessment and monitoring of vital signs [x] Documentation [x] Medication orders and management Discharge Plan Departure Patient Disposition: Admitted as Observation Clinical Impression: Atrial flutter, Anemia
[2021-07-18 08:28] LABS: Add Manual Diff / Slide Review NO; Basophils Absolute Auto 100 /uL (0-100); Basophils Percent Auto 0.4 % (0-2); Eosinophils Absolute Auto 0 /uL (0-450); Eosinophils Percent Auto 0.3 % (2-4); Hematocrit 28.9 % (41-53); Hemoglobin 9.2 g/dL (13.5-17.5); Lymphocytes Absolute Auto 2400 /uL (1100-4500); Lymphocytes Percent Auto 16.4 % (25-40); Mean Corpuscular HGB Conc 31.9 % (30-36); Mean Corpuscular Hemoglobin 28.5 PG (26-34); Mean Corpuscular Volume 89.3 fL (80-100); Monocytes Absolute Auto 900 /uL (0-900); Monocytes Percent Auto 6.1 % (3-14); Neutrophils Absolute Auto 11300 /uL (1500-7000); Neutrophils Percent Auto 76.8 % (50-75); Platelet Count 307 X10^3/uL (150-400); Red Blood Cell Count 3.24 X10^6/uL (4.5-5.9); Red Cell Distribution Width 14.2 % (11.6-14.8); White Blood Cell Count 14.7 X10^3/uL (4.5-11.0)
[2021-07-18] MEDS: SODIUM CHLORIDE 0.9% 1,000 ML 125 ML IV ×2 (08:28→14:32)
[2021-07-18] MEDS: LABETALOL 20 MG/4 ML SYRINGE 5 MG IV (08:28)
[2021-07-18 08:37] LABS: Creatine Kinase 24 U/L (55-170)
[2021-07-18 08:50] LABS: Troponin I < 0.012 ng/mL (0.01-0.034)
[2021-07-18 09:02] LABS: Alanine Aminotransferase 16 IU/L (<50); Albumin 3.9 g/dL (3.5-5.0); Albumin Globulin Ratio 1.7 (1.0-2.8); Alkaline Phosphatase 50 U/L (38-126); Aspartate Aminotransferase 24 IU/L (17-59); BUN Creatinine Ratio 59.5 (6-22); Bilirubin Total 0.3 mg/dL (0.2-1.3); Blood Urea Nitrogen 47 mg/dL (9-20); Calcium 8.7 mg/dL (8.4-10.2); Carbon Dioxide 27 mmol/L (22-32); Chloride 104 mmol/L (98-107); Estimated Glomerular Filt Rate > 60.0 mL/min (>60); Globulin 2.3 g/dL (1.7-4.1); Glucose 205 mg/dL (80-110); HEMOLYSIS < 15 (0-50); Lipase 142 U/L (23-300); Potassium 4.7 mmol/L (3.4-5.1); Sodium 138 mmol/L (137-145); Total Protein 6.2 g/dL (6.3-8.2)
--- NOTE | 2021-07-18 09:43 | PC.NURSE ---
Pr resting quietly in bed, awake, pleasant, slightly confused. Remains tachycardic with soft BP's. MD aware. Call light within reach.
[2021-07-18 10:01] LABS: NT-proBNP (BNP-Adult 18+) 700 pg/mL (<450)
[2021-07-18 10:35] LABS: COVID19 - ADMIT (NP swab/PCR) Negative (Negative)
--- NOTE | 2021-07-18 10:42 | PC.NURSE ---
report given to brian garcia [id number]
--- NOTE | 2021-07-18 13:49 | P.HP_ITS ---
History of Present Illness History of Present Illness Date Patient Seen: 07/18/21 Time Patient Seen: 13:49 Chief complaint: not feeling well/tachy for ems Narrative: Mr. 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 He states he felt off for the past few days. Admits to some mild shortness of breath, palpitations and weakness. Denies any melena or BRBPR. Denies fever, cough, LE swelling, abdominal pain, nausea, vomiting, dysuria or urinary frequency. In the emergency room, patient was in afib/flutter with RVR with a rate in the 140s, hypotensive slightly after labetalol. He was started on gentle IV fluids. Labs were notable for a mild leukocytosis with WBC 14, slight worsening of his anemia with a hemoglobin of 9.2, glucose of 205, proBNP of 700. The remainder of his labs are unremarkable. Troponin testing was negative. COVID-19 testing was negative. Chest x-ray showed hyperexpanded lungs but no evidence of volume overload or pneumonia. Urinalysis did not show evidence of infection. Patient was admitted for further evaluation given his rapid atrial fibrillation/flutter. Patient History Medical History Acquired arteriovenous malformation of stomach Aortic valvular stenosis Atrial fibrillation Atrial flutter, paroxysmal Cholelithiasis Chronic obstructive pulmonary disease Fatigue Gallstone pancreatitis Generalized anxiety disorder History of gastrointestinal hemorrhage History of tobacco abuse Hyperlipidemia Hypertension Memory loss Restrictive lung disease Rheumatoid arthritis Transient cerebral ischemia Surgical History H/O sinus surgery History of aortic valve replacement History of colonoscopy History of esophagogastroduodenoscopy (EGD) History of sinus surgery History of tonsillectomy History of tricuspid valve annuloplasty Status post mitral valve annuloplasty Family & Social History Family History Father Heart disease Hypertension Mother Heart disease Sister Heart disease Cancer Social History: household members none Prior Living Arrangements Apartment/Condo Safety & Behavioral: Feels Safe in Current Yes Environment Been Physically Hurt or No Threatened By a Person Suicidal Ideation Description None Suicide Plan Description No Plan Tobacco & Substance use: Smoking Status Former smoker alcohol intake former alcohol intake frequency holiday/special occasion Substance Use Type does not use Meds Home Medications and Allergies Home Medications Medication Instructions Recorded Confirmed Type atorvastatin 20 mg tablet (Lipitor) 20 mg PO BEDTIME #0 05/16/17 07/18/21 History lorazepam 1 mg tablet 1 mg PO DAILY PRN #0 11/24/17 07/18/21 History ascorbic acid (vitamin C) 500 mg 500 mg PO QID 05/21/18 07/18/21 History tablet (Vitamin C) diltiazem HCl 180 mg 360 mg PO DAILY 05/21/18 07/18/21 History capsule,extended release 24 hr metoprolol succinate 100 mg 200 mg PO QAM 05/21/18 07/18/21 History tablet,extended release 24 hr (Toprol XL) acetaminophen 500 mg tablet 500 mg PO Q6H PRN 12/01/18 07/18/21 History cholecalciferol (vitamin D3) 50 2,000 unit PO BID 12/01/18 07/18/21 History mcg (2,000 unit) capsule (Vitamin D3) coenzyme Q10 100 mg capsule 300 mg PO DAILY 12/01/18 07/18/21 History (CoQ-10) cyanocobalamin (vitamin B-12) 100 100 mcg PO BID 12/01/18 07/18/21 History mcg tablet diphenhydramine 25 2 tab PO BEDTIME PRN 12/01/18 07/18/21 History mg-acetaminophen 500 mg tablet (Tylenol PM Extra Strength) ferrous sulfate 325 mg (65 mg 325 mg PO DAILY 12/01/18 07/18/21 History iron) tablet furosemide 20 mg tablet (Lasix) 20 mg PO QAM 12/01/18 07/18/21 History lisinopril 2.5 mg tablet 2.5 mg PO DAILY 12/01/18 07/18/21 History metoprolol succinate 100 mg 100 mg PO QPM 12/01/18 07/18/21 History tablet,extended release 24 hr xclgtqmx-gqq-mvagf acid 300 1 tab PO DAILY 12/01/18 07/18/21 History mcg-lycopene 600 mcg-lutein 300 mcg tablet (Centrum Silver Men) pantoprazole 40 mg tablet,delayed 40 mg PO BID 12/01/18 07/18/21 History release sennosides 8.6 mg-docusate sodium 1 tab PO DAILY PRN 12/01/18 07/18/21 History 50 mg tablet (Senna-S) Allergies Allergy/AdvReac Type Severity Reaction Status Date / Time aspirin [ASPIRIN] Allergy Intermediate HIVES, Verified 06/27/21 14:49 EARS RING lactose [LACTOSE] Allergy Unknown Verified 06/27/21 14:49 Review of Systems Review of Systems Narrative: All other systems reviewed with the patient and are negative unless otherwise stated. This is notably limited by his dementia. Exam Vital Signs (past 8 hours): - 07/18/21 08:18 07/18/21 08:26 07/18/21 08:28 Temperature 98.1 F Pulse Rate 144 H 145 H 145 H Respiratory Rate 18 16 Blood Pressure 118/61 130/70 Pulse Oximetry 99 99 07/18/21 08:29 07/18/21 08:30 07/18/21 08:35 Temperature Pulse Rate 144 H 144 H 141 H Respiratory Rate 13 14 18 Blood Pressure 130/70 121/56 L 92/52 L Pulse Oximetry 99 99 100 07/18/21 08:40 07/18/21 08:45 07/18/21 08:47 Temperature Pulse Rate 143 H 143 H 143 H Respiratory Rate 16 16 14 Blood Pressure 70/45 L Pulse Oximetry 99 99 99 07/18/21 08:48 07/18/21 08:50 07/18/21 08:55 Temperature Pulse Rate 144 H 144 H 145 H Respiratory Rate 17 15 24 Blood Pressure 83/53 L 78/53 L 82/56 L Pulse Oximetry 99 99 100 07/18/21 09:00 07/18/21 09:05 07/18/21 09:10 Temperature Pulse Rate 145 H 146 H 146 H Respiratory Rate 42 H 15 18 Blood Pressure 104/62 101/58 L Pulse Oximetry 100 99 97 07/18/21 09:11 07/18/21 09:15 07/18/21 09:19 Temperature Pulse Rate 146 H 148 H 149 H Respiratory Rate 18 20 Blood Pressure 114/64 109/57 L 109/57 L Pulse Oximetry 99 98 07/18/21 09:20 07/18/21 09:25 07/18/21 09:30 Temperature Pulse Rate 148 H 146 H 146 H Respiratory Rate 20 24 22 Blood Pressure 113/68 113/68 104/55 L Pulse Oximetry 99 97 97 07/18/21 09:35 07/18/21 09:40 07/18/21 09:45 Temperature Pulse Rate 149 H 149 H 149 H Respiratory Rate 24 21 20 Blood Pressure 102/56 L 94/53 L 97/59 L Pulse Oximetry 98 96 96 07/18/21 09:50 07/18/21 09:51 07/18/21 09:55 Temperature Pulse Rate 148 H 146 H 149 H Respiratory Rate 37 H 29 H 27 H Blood Pressure 124/60 108/57 L Pulse Oximetry 95 96 98 07/18/21 10:00 07/18/21 10:05 07/18/21 10:10 Temperature Pulse Rate 149 H 149 H 149 H Respiratory Rate 26 H 26 H 27 H Blood Pressure 108/56 L 109/61 109/63 Pulse Oximetry 98 98 98 07/18/21 10:15 07/18/21 10:20 07/18/21 10:25 Temperature Pulse Rate 149 H 149 H 149 H Respiratory Rate 35 H 27 H 28 H Blood Pressure 112/68 104/60 105/61 Pulse Oximetry 98 99 99 07/18/21 10:30 07/18/21 10:35 07/18/21 10:40 Temperature Pulse Rate 149 H 143 H 142 H Respiratory Rate 29 H 30 H 17 Blood Pressure 100/58 L 89/54 L 96/60 Pulse Oximetry 99 98 98 07/18/21 10:45 07/18/21 10:46 07/18/21 10:50 Temperature Pulse Rate 139 H 140 H 140 H Respiratory Rate 30 H 30 H Blood Pressure 95/55 L 99/57 L Pulse Oximetry 98 98 98 07/18/21 10:55 07/18/21 11:30 Temperature 98.4 F Pulse Rate 138 H 135 H Respiratory Rate 29 H 22 Blood Pressure 98/54 L 105/81 Pulse Oximetry 98 98 Oxygen Delivery Method Room Air Oxygen Flow Rate 0 Narrative Exam Narrative: GENERAL APPEARANCE: somewhat frail, elderly male in no acute distress. SKIN: Inspection of the skin reveals scattered upper extremity bruising, no other notable lesions. HEENT: Normocephalic atraumatic, extraocular muscles are intact, oropharynx is clear and mucous membranes are moist, neck is supple without adenopathy NECK: Supple and symmetric. There was no thyroid enlargement, and no tenderness, or masses were felt. CHEST: Normal AP diameter and normal contour without any kyphoscoliosis. LUNGS: Auscultation of the lungs revealed no wheezes, rhonchi, or rales. CARDIOVASCULAR: tachycardic, irregularly irregular. no m/r/g. ABDOMEN: S, NT, ND. MUSCULOSKELETAL: There was no tenderness or effusions noted. Muscle strength and tone were normal. EXTREMITIES: No cyanosis, clubbing or edema. NEUROLOGIC: Alert and oriented to name and place. Normal affect. Cognitive impairment evident. Strength is +5/5 in the Upper Extremities and Lower Extremities Bilaterally. Sensation to touch was normal. Objective Labs Result Diagrams: 07/18/21 07:40 07/18/21 07:40 Labs: Laboratory Results - last 24 hr 07/18/21 07/18/21 07/18/21 07:40 07:40 07:40 WBC 14.7 H RBC 3.24 L Hgb 9.2 L Hct 28.9 L MCV 89.3 MCH 28.5 MCHC 31.9 RDW 14.2 Plt Count 307 Neut % (Auto) 76.8 H Lymph % (Auto) 16.4 L Grimes % (Auto) 6.1 Eos % (Auto) 0.3 L Baso % (Auto) 0.4 Neut # (Auto) 92645 H Lymph # (Auto) 2400 Grimes # (Auto) 900 Eos # (Auto) 0 Baso # (Auto) 100 Sodium 138 Potassium 4.7 Chloride 104 Carbon Dioxide 27 BUN 47 H Creatinine 0.79 Estimated GFR > 60.0 BUN/Creatinine Ratio 59.5 H Glucose 205 H Calcium 8.7 Magnesium Total Bilirubin 0.3 AST 24 ALT 16 Alkaline Phosphatase 50 Total Creatine Kinase 24 L CK-MB (CK-2) TNP CK-MB (CK-2) Rel Index TNP Troponin I < 0.012 NT-Pro-B Natriuret Pep Total Protein 6.2 L Albumin 3.9 Globulin 2.3 Albumin/Globulin Ratio 1.7 Lipase 142 SARS-CoV-2 (PCR) 07/18/21 07/18/21 07/18/21 07:40 07:40 08:40 WBC RBC Hgb Hct MCV MCH MCHC RDW Plt Count Neut % (Auto) Lymph % (Auto) Grimes % (Auto) Eos % (Auto) Baso % (Auto) Neut # (Auto) Lymph # (Auto) Grimes # (Auto) Eos # (Auto) Baso # (Auto) Sodium Potassium Chloride Carbon Dioxide BUN Creatinine Estimated GFR BUN/Creatinine Ratio Glucose Calcium Magnesium 2.0 Total Bilirubin AST ALT Alkaline Phosphatase Total Creatine Kinase CK-MB (CK-2) CK-MB (CK-2) Rel Index Troponin I NT-Pro-B Natriuret Pep 700 H Total Protein Albumin Globulin Albumin/Globulin Ratio Lipase SARS-CoV-2 (PCR) Negative Assessment & Plan Assessment & Plan narrative: 1. Chronic atrial flutter/Atrial fibrillation with rapid ventricular response. Patient with rapid AFib, suspect medication non-compliance at home. restart home medications, appears slightly dehydrated and worsened anemia gilberto red to previous. continue IVF with 1L over 8 hours only. improved rate with small IVF. restart metoprolol tonight and home meds tomorrow given hypotension. 2. acute on chronic anemia, normocytic. - continue to monitor, continue oral PPI. watch Hg trend. 4.? Essential hypertension, chronic, stable, not present on admission - continue rate control agents at this time, hold lisinopril and other medications. Blood pressures currently low-normal. 5.. Hyperlipidemia, chronic, stable, not present on admit -Will continue patient's home regimen of atorvastatin 20 mg daily. 6.? COPD with restrictive lung disease, chronic, stable, not present on image - continue home medications, albuterol prn. Code: DNR, surrogate he states is his daughter. Dispo: admit under observation. PT/OT to check safety for home environment. Lives alone. Check home assistance available. DVT: Lovenox daily. I have utilized all available immediate resources to obtain, update, or review the patient's current medications. Time Spent With Patient Critical Care time: I spent a total of [] minutes of critical care time on this patient's care today; this time is exclusive of procedural time. Quality VTE Deep Vein Thrombosis/Pulmonary Embolism Present on Admission: No MIPS - Admit I confirm the patient?s Advance Care Plan is present, Code status is documented, Surrogate decision maker is in patient?s record [If Yes, STOP here]: Yes
[2021-07-18] MEDS: METOPROLOL ER 50 MG TABLET 100 MG PO (17:09)
[2021-07-18] MEDS: PANTOPRAZOLE DR 40 MG TABLET PO (20:22)
[2021-07-18] MEDS: ATORVASTATIN 20 MG TABLET PO (20:22)
[2021-07-19] VITALS (40 sets, daily range): BP systolic 97–133; BP diastolic 44–65; PULSE 71–148; RESP 14–39; TEMP 36.3–36.9; O2SAT 92–100
--- NOTE | 2021-07-19 00:35 | PC.NURSE ---
Patient oriented only to self and birthdate; initially could not even tell me his last name. Did not know the date or that he is in the hospital and did not know why he is in the hospital. Breath sounds CTA with RA sat of 96%. HR irregular with telemetry reading of aflutter with rate of 84. Denies nausea. BT present and abdomen is soft. Denies dysuria, frequency or urgency and has reportedly been using urinal and has been continent. Is able to move himself in bed. Gait not assessed at this time but patient reports he is weak and normally uses a cane at home to ambulate. Noted bruising on bilateral UE, right back and right foot. Allevyn dressing to left arm is CDI. Wearing bilateral calf SCD's. Denies pain. Fall risk is high at RN discretion; patient reports no recent falls but questionable due to confusion. Bed alarm is activated.
[2021-07-19 07:43] LABS: Add Manual Diff / Slide Review NO; Basophils Absolute Auto 100 /uL (0-100); Basophils Percent Auto 0.9 % (0-2); Eosinophils Absolute Auto 0 /uL (0-450); Eosinophils Percent Auto 0.3 % (2-4); Hemoglobin 7.7 g/dL (13.5-17.5); Lymphocytes Absolute Auto 900 /uL (1100-4500); Lymphocytes Percent Auto 7.1 % (25-40); Mean Corpuscular HGB Conc 32.1 % (30-36); Mean Corpuscular Hemoglobin 28.6 PG (26-34); Mean Corpuscular Volume 89.1 fL (80-100); Monocytes Absolute Auto 900 /uL (0-900); Monocytes Percent Auto 7.7 % (3-14); Neutrophils Absolute Auto 10000 /uL (1500-7000); Platelet Count 214 X10^3/uL (150-400); Red Cell Distribution Width 14.4 % (11.6-14.8); White Blood Cell Count 11.9 X10^3/uL (4.5-11.0)
[2021-07-19] MEDS: METOPROLOL ER 50 MG TABLET 200 MG PO (07:45)
[2021-07-19] MEDS: dilTIAZem CD 180 MG CAP 360 MG PO (07:45)
[2021-07-19 07:52] LABS: BUN Creatinine Ratio 40.5 (6-22); Blood Urea Nitrogen 30 mg/dL (9-20); Calcium 8.4 mg/dL (8.4-10.2); Carbon Dioxide 31 mmol/L (22-32); Chloride 108 mmol/L (98-107); Estimated Glomerular Filt Rate > 60.0 mL/min (>60); Glucose 122 mg/dL (80-110); HEMOLYSIS < 15 (0-50); Potassium 4.5 mmol/L (3.4-5.1); Sodium 142 mmol/L (137-145)
[2021-07-19] MEDS: ENOXAPARIN 40 MG/0.4 ML SYRINGE SUBCUT (08:37)
[2021-07-19] MEDS: FERROUS SULFATE 325 MG TABLET PO (08:37)
[2021-07-19] MEDS: PANTOPRAZOLE DR 40 MG TABLET PO (08:37)
[2021-07-19] MEDS: SODIUM CHLORIDE 0.9% FLUSH 10 ML IV ×2 (08:50→21:04)
--- NOTE | 2021-07-19 09:09 | PT-IP ANOTE ---
Holding Physical therapy evaluation at this time. His HR is 144 bpm. Discussed his case with his nurse. Will check back later today.
[2021-07-19] MEDS: SODIUM CHLORIDE 0.9% 500 ML 1000 ML IV (09:36)
[2021-07-19] MEDS: SODIUM CHLORIDE 0.9% 1,000 ML 125 ML IV ×2 (10:30→14:01)
--- NOTE | 2021-07-19 10:31 | CM.DANOTE ---
Addendum entered by Lorrie Mercado R.N. 07/19/21 11:01: It is noted that patient's Hgb has decreased, and will be evaluated for anemia. This could make him inpatient status. Original Note: DCP: Case received, EMR reviewed and met with patient. Introduced self and role. Was able to obtain information regarding patient's baseline activity status at home, as well as his current living situation. DCP assessment completed with information currently available. Patient is an 85 year old male who admitted yesterday morning to the care of the hospitalist team. PCP: Dr. Leone. Payer: confirmed: [facility]. Patient came to the hospital via ambulance secondary to having a fast heart rate, and not feeling well. Patient was noted to have tachycardia, and diagnosed with a-fib. Patient does have history of a-fib, as well as a-flutter. He also has history of COPD, and some dementia. There was some question about non-compliance of medication, as he lives alone. Met with patient in his room. He is pleasant, smiling. Confirmed with patient that he does live alone. He stated that he does not drive. He uses a cane to keep him steady. Patient stated that he has two daughters in the area, Mednia Avitia, who is listed as point of contact, and Candice Ashraf. Patient indicated, it's usually Medina that comes by, does his shopping for him as well, since he's no longer driving. He lives here in [place], and his provider is Dr. Leone. Discussed patient during team rounds. He still has an increase in his heart rate. Discussed home with with hospitalist, and he agreed, that nursing would be appropriate to come in and assess medications, and perform any labs if needed. P: DCP to continue to follow. Have not yet met daughters, will see if daughter comes in today and can discuss. Can also discuss home health possibility as well, will need to get face to face signed. Lorrie Mercado RN/Child Care Director Discharge Planning/Care Management Advanced directive, confirm from FAMILY Start: 07/18/21 12:18 Freq: Q24H Status: Active Protocol: Document 07/18/21 12:18 CLL (Rec: 07/18/21 14:08 CLL [id number]) Advance Directive, confirm on record Time 14:07 Person contacted patient Copy received No CM Discharge Assessment Start: 07/19/21 10:20 Freq: Status: Active Protocol: Document 07/19/21 10:20 (Rec: 07/19/21 10:30 [id number]) Discharge Planning Assessment Assigned Cap Sizer Lorrie Mercado RN/Child Care Director Advance Directives? Yes Advance Directives on File No History Provided By Patient,Medical Record Prior Living Arrangements Apartment/Condo Household Members none Type of transporation used prior to Relies on Others admit Independent with ADL's Yes Is patient alert and oriented? Yes Needs Assistance With Home Chores / Shopping Caregiver for Another No DME Already Rented / Owned Cane Patient/Family Preference Home with Home Health Comment Due to some concerns about medication compliance Comment Reviewed chart, met w/pt at bedside, explained SW role. Pt explains he is indp and active at baseline and expects no barriers to DC back home. His dtrs Alyssa Ashraf and Medina Avitia are supportive and pt states I think they have joint DPOA. Pt will likely remainw/ supportive family. Following closely in case any DC needs or concerns arise Discharge Plan Home Transportation Arrangement Family Referrals Initiated Home Health Additional Comment Have not yet ordered, but will get face to face signed, and will discuss with patient. Whiteboard Updated in Patient Room with Yes name and ext. # of Cap Sizer Review Status In Process Next Review Type Continued Stay Review
--- NOTE | 2021-07-19 10:42 | PM.PN.1 ---
Subjective Subjective Date Patient Seen: 07/19/21 Time Patient Seen: 10:42 Interval history: HR 140s this AM, reports he feels off and feels his palpitations, slightly dizzy but awake and alert. Given his home doses of medications. Appeared slightly dehydrated, attempting fluids but may need to start amiodarone. With IV fluids Hg to 7.7, will repeat later may need transfusion. Exam Vital Signs (past 8 hours): - 07/19/21 04:49 07/19/21 07:45 07/19/21 08:00 Temperature 97.8 F 98.4 F Pulse Rate 75 146 H 148 H Respiratory Rate 18 22 Blood Pressure 101/54 L 103/62 103/62 Pulse Oximetry 95 98 07/19/21 10:14 Temperature Pulse Rate Respiratory Rate Blood Pressure Pulse Oximetry 98 Oxygen Delivery Method Room Air Oxygen Flow Rate 0 Narrative Exam Narrative: GENERAL APPEARANCE: somewhat frail, elderly male in no acute distress. SKIN: Inspection of the skin reveals scattered upper extremity bruising, no other notable lesions. HEENT:? Normocephalic atraumatic, extraocular muscles are intact, oropharynx is clear and mucous membranes are moist, neck is supple without adenopathy NECK: Supple and symmetric. There was no thyroid enlargement, and no tenderness, or masses were felt. CHEST: Normal AP diameter and normal contour without any kyphoscoliosis. LUNGS: Auscultation of the lungs revealed no wheezes, rhonchi, or rales. CARDIOVASCULAR: tachycardic, regular rhythm. no m/r/g. ABDOMEN: S, NT, ND. MUSCULOSKELETAL: There was no tenderness or effusions noted. Muscle strength and tone were normal. EXTREMITIES: No cyanosis, clubbing or edema. NEUROLOGIC: Alert and oriented to name and place. Normal affect.? Cognitive impairment evident.? Strength is +5/5 in the Upper Extremities and Lower Extremities Bilaterally. Sensation to touch was normal. Objective Labs Result Diagrams: 07/19/21 07:17 07/19/21 07:17 Labs: Laboratory Results - last 24 hr 07/18/21 07/19/21 07/19/21 07:40 07:17 07:17 WBC 11.9 H RBC 2.70 L Hgb 7.7 L Hct 24.0 L MCV 89.1 MCH 28.6 MCHC 32.1 RDW 14.4 Plt Count 214 Neut % (Auto) 84.0 H Lymph % (Auto) 7.1 L Hubbard % (Auto) 7.7 Eos % (Auto) 0.3 L Baso % (Auto) 0.9 Neut # (Auto) 05358 H Lymph # (Auto) 900 L Hubbard # (Auto) 900 Eos # (Auto) 0 Baso # (Auto) 100 Sodium 142 Potassium 4.5 Chloride 108 H Carbon Dioxide 31 BUN 30 H Creatinine 0.74 Estimated GFR > 60.0 BUN/Creatinine Ratio 40.5 H Glucose 122 H Calcium 8.4 Magnesium 2.0 2.0 PFSH Medical History Acquired arteriovenous malformation of stomach Aortic valvular stenosis Atrial fibrillation Atrial flutter, paroxysmal Cholelithiasis Chronic obstructive pulmonary disease Fatigue Gallstone pancreatitis Generalized anxiety disorder History of gastrointestinal hemorrhage History of tobacco abuse Hyperlipidemia Hypertension Memory loss Restrictive lung disease Rheumatoid arthritis Transient cerebral ischemia Surgical History H/O sinus surgery History of aortic valve replacement History of colonoscopy History of esophagogastroduodenoscopy (EGD) History of sinus surgery History of tonsillectomy History of tricuspid valve annuloplasty Status post mitral valve annuloplasty Family History Father Heart disease Hypertension Mother Heart disease Sister Heart disease Cancer Social History household members: none Smoking Status: Former smoker Tobacco: How many years used: 60 alcohol intake: former substance use type: does not use Assessment & Plan Assessment & Plan narrative: 1. Chronic atrial flutter/Atrial fibrillation with rapid ventricular response. Patient with rapid AFib, suspect medication non-compliance at home. restarted home medications, appears slightly dehydrated and worsened anemia compared to previous. give another 500 cc bolus, continue IV fluids. if no improvement consider amiodarone or transfusion given anemia. Consider cardiology consultation. control issues may be related to new anemia. 2. acute on chronic anemia, normocytic. ?- possible bleeding Obtain stool guaiac. - consider transfusion, repeat h/h later today given Hg 7.7. With repeat labs check LDH and haptoglobin given heart valve. Need smear review as well to see if schistocytes. - has a history of AVM for which he is not on AC. Change to IV PPI BID instead of PO today. 4.? Essential hypertension, chronic, stable, not present on admission - continue rate control agents at this time, hold lisinopril and other medications. Blood pressures currently low-normal. 5.. Hyperlipidemia, chronic, stable, not present on admit -Will continue patient's home regimen of atorvastatin 20 mg daily. 6.? COPD with restrictive lung disease, chronic, stable, not present on image - continue home medications, albuterol prn. Code: DNR, surrogate he states is his daughter. Dispo: admitted under observation, change to inpatient given possible bleeding, continued fall in h/h, and uncontrolled afib. PT/OT to check safety for home environment. Lives alone. Check home assistance available. DVT: hold lovenox given h/h drop. I have utilized all available immediate resources to obtain, update, or review the patient's current medications. Time Spent With Patient Critical Care time: I spent a total of [] minutes of critical care time on this patient's care today; this time is exclusive of procedural time. Quality VTE Deep Vein Thrombosis/Pulmonary Embolism Present on Admission: No
--- NOTE | 2021-07-19 10:53 | DI.ECHO.S_ITS ---
[facility]---------+ [facility] +---------+ : : [address] : [address] : : [address] : : : : [id number] : : : : Phone: [phone] Echocardiogram Report + + :Name: ADRIAN SOOD Study Date: 07/20/2021 Height: 72 in : :[facility] ReadingLocation: Weight: 171 lb : : Gender: Male BSA: 2.0 m2 : :: 1935 Age: 85 yrs BP: 113/52 mmHg: :Reason For Study: ATRIAL FIBRILLATION : :Ordering Physician: QUEENIE, : :MAX BOYCE Performed By: Sarah Henderson : :Referring: MAX JEROME : + + Interpretation Summary The patient was in atrial fibrillation with heart rates between 73-97 bpm during the exam. Normal left ventricle size with ejection fraction 60-65%. Normal right ventricle size with mildly reduced right ventricular systolic function. Mildly dilated left atrium. The prosthetic aortic valve is well seated. The peak aortic velocity is 2.49 m/sec. An annuloplasty ring is noted in the mitral position. The mitral valve mean gradient is 5.8 mmHg. An annuloplasty ring is noted in the tricuspid position. Mild to moderate tricuspid regurgitation. The right ventricular systolic pressure is estimated to be at least 48 mmHg based on an estimated right atrial pressure of 3 mm Hg. Comparison is made with the echocardiogram of 01/22/2021, the RV systolic pressure has increased. Procedure: A two-dimensional transthoracic echocardiogram with color flow and Doppler was performed. The study quality was technically adequate. Comparison is made with the echocardiogram of 01/22/2021. The patient was in atrial fibrillation with heart rates between 73-97 bpm during the exam. Left Ventricle: The left ventricle is normal in size and wall thickness. The ejection fraction is estimated to be 60-65%. Septal motion is consistent with post-operative state. The interventricular septum is flattened, consistent with a right ventricular pressure/volume condition. Diastolic function could not be accurately assessed due to unobtainable data. Right Ventricle: The right ventricle is normal size. Right ventricular systolic function is mildly reduced. Atria: The left atrium is mildly dilated. Right atrial size is normal. There is no Doppler evidence for an interatrial shunt. Mitral Valve: An annuloplasty ring is noted in the mitral position. The mitral valve mean gradient is 5.8 mmHg. There is trace mitral regurgitation. Aortic Valve: There is a prosthetic aortic valve. The prosthetic aortic valve is well-seated. The peak aortic velocity is 2.49 m/sec. There is trace aortic regurgitation. Tricuspid Valve: An annuloplasty ring is noted in the tricuspid position. There is mild to moderate tricuspid regurgitation. The right ventricular systolic pressure is estimated to be at least 48 mmHg based on an estimated right atrial pressure of 3 mm Hg. Pulmonic Valve: The pulmonic valve leaflets are thin and pliable; valve motion is normal. There is trace pulmonic regurgitation. Great Vessels: The aortic root is not well visualized. The ascending aorta is mildly enlarged. The IVC is of normal diameter and collapses greater than 50% with a sniff. This suggests a low right atrial pressure of 3 mm Hg. Pericardium/ Pleura There is no pericardial effusion. There is no pleural effusion. MMode/2D Measurements & Calculations LVIDd: 5.0 cm LVOT diam: 2.0 cm LVIDs: 3.1 cm asc Aorta Diam: 3.8 cm FS: 37.9 % IVSd: 0.80 cm LVPWd: 0.95 cm LV vee. diameter/BSA (cm/m^2): 2.5 LV sys. diameter/BSA (cm/m^2): 1.6 LA A2 area: 24.8 cm2 RA long axis: 5.8 cm LA A4 area: 22.6 cm2 RA area: 20.8 cm2 LA length (vol): 6.2 cm RA vol: 64.0 ml LA vol: 76.3 ml RA : 32.1 ml/m2 LA vol index: 38.3 ml/m2 IVC diam: 1.8 cm RVD1 (basal): 3.8 cm RVD2 (mid): 3.3 cm TAPSE: 1.5 cm Doppler Measurements & Calculations Ao V2 max: 249.1 cm/sec LVOT Max Thomas: 87.5 cm/sec Ao V2 mean: 174.6 cm/sec LV V1 max P.1 mmHg Ao max P.1 mmHg LV V1 VTI: 19.8 cm Ao mean P.1 mmHg HECTOR(I,D): 1.3 cm2 Ao V2 VTI: 48.3 cm HECTOR(V,D): 1.2 cm2 sev ratio: 0.41 HECTOR indexed to BSA (cm^2/m^2): 0.68 Med Peak E' Thomas: 5.2 cm/sec TR max thomas: 335.8 cm/sec Lat Peak E' Thomas: 8.2 cm/sec TR max P.1 mmHg MVA(VTI): 1.7 cm2 PA V2 max: 89.7 cm/sec PA V2 mean: 60.7 cm/sec PA mean P.7 mmHg MV V2 mean: 108.6 cm/sec SV(LVOT): 65.0 ml MV mean P.8 mmHg MV V2 VTI: 39.2 cm Electronically signed by: Kenneth Dao on Reading Physician:07/20/2021 02:49 PM
[2021-07-19 11:44] LABS: Reticulocyte Count, Percent 3.8 % (0.87-2.60)
[2021-07-19 13:13] LABS: Hematocrit 22.9 % (41-53); Hemoglobin 7.4 g/dL (13.5-17.5)
[2021-07-19 13:18] LABS: INR 1.1 (0.9-1.3); Prothrombin Time 12.2 SECONDS (10.1-12.7)
[2021-07-19 13:21] LABS: PTT Partial Thromboplastin Tim 32 SECONDS (26.4-36.2)
[2021-07-19 13:26] LABS: Lactate Dehydrogenase 361 U/L (313-618)
--- NOTE | 2021-07-19 14:58 | PT-IP ANOTE ---
Continue to hold physical therapy eval. Discussed his case with his nurse. Due to his on-going cardiac issues and low H&H will not increase his activity level yet. He is getting up to the toilet with nursing. Will check back tomorrow for possible eval.
[2021-07-19] MEDS: ONDANSETRON 4 MG/2 ML INJ IV (15:35)
[2021-07-19] MEDS: METOPROLOL ER 50 MG TABLET 100 MG PO (17:24)
[2021-07-19] MEDS: METOPROLOL TARTRATE 5 MG/5 ML INJ IV ×4 (19:45→20:07)
[2021-07-19] MEDS: dilTIAZem 125 MG in SODIUM CHLORIDE 0.9% 100 ML IV (20:28)
[2021-07-19] MEDS: ACETAMINOPHEN 325 MG TABLET 650 MG PO (21:03)
[2021-07-19] MEDS: ATORVASTATIN 20 MG TABLET PO (21:03)
[2021-07-19] MEDS: PANTOPRAZOLE 40 MG VIAL IV (21:03)
--- NOTE | 2021-07-19 21:08 | PM.EVENT ---
Event Note Event Note: The patient is an 85-year-old gentleman who was admitted to the hospital with AFib a flutter in the setting of acute anemia. Patient had recurrent rapid AFib today with a heart rate of 140. He was given 2 doses of Lopressor without significant improvement. The patient has been transferred to the ICU. He started on diltiazem drip. He is somewhat short of breath. His IV fluids will be discontinued. Will obtain a stat H&H, if the patient continues to be anemic with transfuse 1 unit of blood. In addition if he continues to have rapid atrial fibrillation will consider starting amiodarone if he fails the Cardizem drip. Patient is awake and comfortable at this time.
--- NOTE | 2021-07-19 21:11 | DI.RAD.S_ITS ---
PROCEDURE: XR CHEST 1V INDICATIONS: shortness of breath TECHNIQUE: One view of the chest was acquired. COMPARISON: [facility], CR, XR CHEST 1V, 07/18/2021, 8:42. FINDINGS: Surgical changes and devices: Median sternotomy and valvuloplasty changes. Lungs and pleura: Lungs are hyperlucent and slightly hyperinflated. Left mid lung calcified granuloma. No acute consolidations or effusions. Mediastinum: Mediastinal contours appear normal. Heart size is at the upper limits of normal likely accentuated by technique.. Bones and chest wall: No suspicious bony lesions. Overlying soft tissues appear unremarkable. IMPRESSION: 1. No significant changes. 2. Hyperinflation and hyperlucency suggesting asthma or emphysema. 3. Several postsurgical cardiac changes. Dictated by: Sheridan Plata M.D. on 07/19/2021 at 23:32 Approved by: Sheridan Plata M.D. on 07/19/2021 at 23:34
[2021-07-19 21:36] LABS: Hemoglobin 7.1 g/dL (13.5-17.5)
[2021-07-19 21:40] LABS: Hematocrit 22.4 % (41-53)
[2021-07-19 21:54] LABS: NT-proBNP (BNP-Adult 18+) 1990 pg/mL (<450)
--- NOTE | 2021-07-19 22:05 | PC.NURSE ---
Was informed by other RN that patient had pulled out his IV. Went into the room to start another one with no success. Had 2 more RNs try and was able to get one after try #4. Patient tolerated well, but was informed by ICU that patient in SVT and heart rate in the 130s and 140s. Patient getting diaphoretic and short of breath. Call placed to Dr. Porter who ordered originally PO metoprolol, but was able to get IV and given metoprolol 5mg IV x2 due to no change with first dose. Per Dr. Porter and city controller, patient needing to move to ICU due to no improvement with metoprolol and declining status. Patient moved to ICU room 228 and diltiazem drip started. Report given to ICU nurse as well as TeleICU doctor.
--- NOTE | 2021-07-19 22:50 | PM.CN.EICU ---
History of Present Illness Consult details Chief complaint: not feeling well/tachy for ems Reason for consult: Tachyarrhythmia :: This patient was seen via real time interactive two-way audiovisual telecommunication. 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 Tonight, he was unresponsive to multiple boluses of metoprolol and a diltiazem infusion was started. In addition, Hgb has been drifting downwards without clear evidence of a GIB. He was transferred to the ICU.. [facility] Medical History Acquired arteriovenous malformation of stomach Aortic valvular stenosis Atrial fibrillation Atrial flutter, paroxysmal Cholelithiasis Chronic obstructive pulmonary disease Fatigue Gallstone pancreatitis Generalized anxiety disorder History of gastrointestinal hemorrhage History of tobacco abuse Hyperlipidemia Hypertension Memory loss Restrictive lung disease Rheumatoid arthritis Transient cerebral ischemia Surgical History H/O sinus surgery History of aortic valve replacement History of colonoscopy History of esophagogastroduodenoscopy (EGD) History of sinus surgery History of tonsillectomy History of tricuspid valve annuloplasty Status post mitral valve annuloplasty Family History Father Heart disease Hypertension Mother Heart disease Sister Heart disease Cancer Social History household members: none Smoking Status: Former smoker Tobacco: How many years used: 60 alcohol intake: former substance use type: does not use Current Medications Current Medications Medications: Home Medications atorvastatin 20 mg tablet (Lipitor) 20 mg PO BEDTIME #0 05/16/17 [History Confirmed 07/18/21] lorazepam 1 mg tablet 1 mg PO DAILY PRN #0 11/24/17 [History Confirmed 07/18/21] ascorbic acid (vitamin C) 500 mg tablet (Vitamin C) 500 mg PO QID 05/21/18 [History Confirmed 07/18/21] diltiazem HCl 180 mg capsule,extended release 24 hr 360 mg PO DAILY 05/21/18 [History Confirmed 07/18/21] metoprolol succinate 100 mg tablet,extended release 24 hr (Toprol XL) 200 mg PO QAM 05/21/18 [History Confirmed 07/18/21] acetaminophen 500 mg tablet 500 mg PO Q6H PRN 12/01/18 [History Confirmed 07/18/21] cholecalciferol (vitamin D3) 50 mcg (2,000 unit) capsule (Vitamin D3) 2,000 unit PO BID 12/01/18 [History Confirmed 07/18/21] coenzyme Q10 100 mg capsule (CoQ-10) 300 mg PO DAILY 12/01/18 [History Confirmed 07/18/21] cyanocobalamin (vitamin B-12) 100 mcg tablet 100 mcg PO BID 12/01/18 [History Confirmed 07/18/21] diphenhydramine 25 mg-acetaminophen 500 mg tablet (Tylenol PM Extra Strength) 2 tab PO BEDTIME PRN 12/01/18 [History Confirmed 07/18/21] ferrous sulfate 325 mg (65 mg iron) tablet 325 mg PO DAILY 12/01/18 [History Confirmed 07/18/21] furosemide 20 mg tablet (Lasix) 20 mg PO QAM 12/01/18 [History Confirmed 07/18/21] lisinopril 2.5 mg tablet 2.5 mg PO DAILY 12/01/18 [History Confirmed 07/18/21] metoprolol succinate 100 mg tablet,extended release 24 hr 100 mg PO QPM 12/01/18 [History Confirmed 07/18/21] qljyapud-svb-assne acid 300 mcg-lycopene 600 mcg-lutein 300 mcg tablet (Centrum Silver Men) 1 tab PO DAILY 12/01/18 [History Confirmed 07/18/21] pantoprazole 40 mg tablet,delayed release 40 mg PO BID 12/01/18 [History Confirmed 07/18/21] sennosides 8.6 mg-docusate sodium 50 mg tablet (Senna-S) 1 tab PO DAILY PRN 12/01/18 [History Confirmed 07/18/21] Visit Medications (administered) Generic Name Dose Route Start Last Admin Trade Name Freq PRN Reason Stop Dose Admin Acetaminophen 650 mg 07/18/21 11:45 07/19/21 21:03 Acetaminophen 325 Mg Tablet PO 650 mg Q6HR PRN Administration Fever/Mild Pain (1-3) Atorvastatin Calcium 20 mg 07/18/21 21:00 07/19/21 21:03 Atorvastatin 20 Mg Tablet PO 20 mg BEDTIME ALICJA Administration Diltiazem HCl 360 mg 07/19/21 09:00 07/19/21 07:45 Diltiazem Cd 180 Mg Cap PO 360 mg DAILY ALICJA Administration Ferrous Sulfate 325 mg 07/19/21 09:00 07/19/21 08:37 Ferrous Sulfate 325 Mg Tablet PO 325 mg DAILY ALICJA Administration Diltiazem HCl 125 mg/ Sodium 125 mls @ 5 mls/hr 07/19/21 20:30 07/19/21 22:05 Chloride IV 5 mg/hr TITRATE ALICJA 5 mls/hr Titration Protocol 5 MG/HR Metoprolol Succinate 200 mg 07/19/21 09:00 07/19/21 07:45 Metoprolol Er 50 Mg Tablet PO 200 mg DAILY ALICJA Administration Metoprolol Succinate 100 mg 07/18/21 17:00 07/19/21 17:24 Metoprolol Er 50 Mg Tablet PO 100 mg QPM ALICJA Administration Ondansetron HCl 4 mg 07/18/21 11:45 07/19/21 15:35 Ondansetron 4 Mg/2 Ml Inj IV 4 mg Q8HR PRN Administration Nausea And Vomiting Pantoprazole Sodium 40 mg 07/19/21 21:00 07/19/21 21:03 Pantoprazole 40 Mg Vial IV 40 mg BID ALICJA Administration Sodium Chloride 10 ml 07/19/21 09:00 07/19/21 21:04 Sodium Chloride 0.9% Flush IV 10 ml BID ALICJA Administration Exam Vital Signs (past 8 hours): - 07/19/21 15:43 07/19/21 16:00 07/19/21 17:24 Temperature 98.1 F Pulse Rate 77 77 Respiratory Rate 14 Blood Pressure 107/44 L 107/44 L Pulse Oximetry 92 92 07/19/21 18:05 07/19/21 18:15 07/19/21 20:00 Temperature 97.8 F Pulse Rate 148 H 148 H Respiratory Rate 22 Blood Pressure 112/58 L 112/58 L Pulse Oximetry 94 100 07/19/21 20:03 07/19/21 20:37 07/19/21 20:51 Temperature 97.3 F L Pulse Rate 143 H 133 H 137 H Respiratory Rate 39 H Blood Pressure 108/56 L 101/63 110/56 L Pulse Oximetry 98 07/19/21 21:00 07/19/21 21:17 07/19/21 21:50 Temperature Pulse Rate 125 H 82 Respiratory Rate 24 Blood Pressure 100/63 109/58 L 99/51 L Pulse Oximetry 07/19/21 22:00 07/19/21 22:07 07/19/21 22:21 Temperature Pulse Rate 81 81 96 H Respiratory Rate 34 H Blood Pressure 100/52 L 97/50 L Pulse Oximetry 98 Oxygen Delivery Method Nasal Cannula Oxygen Flow Rate 2 Const Other: non-toxic appearing Cardio Other: HR is 130s Objective Labs Result Diagrams: 07/19/21 21:19 07/19/21 07:17 Labs: Laboratory Results - last 24 hr 07/19/21 07/19/21 07/19/21 07:17 07:17 07:17 WBC 11.9 H RBC 2.70 L Hgb 7.7 L Hct 24.0 L MCV 89.1 MCH 28.6 MCHC 32.1 RDW 14.4 Plt Count 214 Neut % (Auto) 84.0 H Lymph % (Auto) 7.1 L Crosby % (Auto) 7.7 Eos % (Auto) 0.3 L Baso % (Auto) 0.9 Neut # (Auto) 75111 H Lymph # (Auto) 900 L Crosby # (Auto) 900 Eos # (Auto) 0 Baso # (Auto) 100 Percent Retic 3.8 H PT INR APTT Sodium 142 Potassium 4.5 Chloride 108 H Carbon Dioxide 31 BUN 30 H Creatinine 0.74 Estimated GFR > 60.0 BUN/Creatinine Ratio 40.5 H Glucose 122 H Calcium 8.4 Magnesium 2.0 Lactate Dehydrogenase NT-Pro-B Natriuret Pep 07/19/21 07/19/21 07/19/21 13:00 13:00 13:00 WBC RBC Hgb 7.4 L Hct 22.9 L MCV MCH MCHC RDW Plt Count Neut % (Auto) Lymph % (Auto) Crosby % (Auto) Eos % (Auto) Baso % (Auto) Neut # (Auto) Lymph # (Auto) Crosby # (Auto) Eos # (Auto) Baso # (Auto) Percent Retic PT 12.2 INR 1.1 APTT 32 Sodium Potassium Chloride Carbon Dioxide BUN Creatinine Estimated GFR BUN/Creatinine Ratio Glucose Calcium Magnesium Lactate Dehydrogenase 361 NT-Pro-B Natriuret Pep 07/19/21 07/19/21 21:19 21:19 WBC RBC Hgb 7.1 L Hct 22.4 L MCV MCH MCHC RDW Plt Count Neut % (Auto) Lymph % (Auto) Crosby % (Auto) Eos % (Auto) Baso % (Auto) Neut # (Auto) Lymph # (Auto) Crosby # (Auto) Eos # (Auto) Baso # (Auto) Percent Retic PT INR APTT Sodium Potassium Chloride Carbon Dioxide BUN Creatinine Estimated GFR BUN/Creatinine Ratio Glucose Calcium Magnesium Lactate Dehydrogenase NT-Pro-B Natriuret Pep 1989 H Assessment & Plan Assessment and plan (1) Atrial fibrillation with RVR: Status: Acute Plan: -Continue diltiazem infusion -Follow-up on 2-D echo -Check TSH (2) Anemia: Status: Acute Plan: -Serial hemoglobins -See Hx of GIB (3) History of GI bleed: Status: Acute Plan: -Continue BID PPI
[2021-07-20] VITALS (39 sets, daily range): BP systolic 95–128; BP diastolic 46–59; PULSE 70–146; RESP 17–34; TEMP 36.6–37; O2SAT 90–100
--- NOTE | 2021-07-20 00:59 | PC.NURSE ---
Patient assessment completed at ooo5. Patient arouses easily. Oriented to person only. Patient repositioned. Coccyx pink and blanches well. Patient SOB with mild exertion. O2 @ 2L sats 95-97%. Lungs diminished throughout with mild inspiratory wheeze R posterior mid lobe. Patient remains in Aflutter, Rate 70's .Diltiazem drip @ 5mg/hr. 0015 Diltiazem drip off. HR 70s. Remains in Aflutter. Bp 108/53. O2 @ 2L. Sats mid 90s.
[2021-07-20 03:38] LABS: Haptoglobin 116 mg/dL (38-329)
[2021-07-20 05:27] LABS: BUN Creatinine Ratio 30.3 (6-22); Blood Urea Nitrogen 23 mg/dL (9-20); Calcium 8.1 mg/dL (8.4-10.2); Carbon Dioxide 30 mmol/L (22-32); Chloride 109 mmol/L (98-107); Estimated Glomerular Filt Rate > 60.0 mL/min (>60); Glucose 110 mg/dL (80-110); HEMOLYSIS < 15 (0-50); Magnesium 1.9 mg/dL (1.6-2.3); Potassium 4.2 mmol/L (3.4-5.1); Sodium 141 mmol/L (137-145)
[2021-07-20 05:29] LABS: Add Manual Diff / Slide Review NO; Basophils Absolute Auto 100 /uL (0-100); Basophils Percent Auto 1.2 % (0-2); Eosinophils Absolute Auto 100 /uL (0-450); Eosinophils Percent Auto 0.7 % (2-4); Hemoglobin 7.4 g/dL (13.5-17.5); Lymphocytes Absolute Auto 1000 /uL (1100-4500); Lymphocytes Percent Auto 9.5 % (25-40); Mean Corpuscular HGB Conc 31.9 % (30-36); Mean Corpuscular Hemoglobin 29.1 PG (26-34); Mean Corpuscular Volume 91.1 fL (80-100); Monocytes Absolute Auto 800 /uL (0-900); Monocytes Percent Auto 8.1 % (3-14); Neutrophils Absolute Auto 8200 /uL (1500-7000); Neutrophils Percent Auto 80.5 % (50-75); Platelet Count 192 X10^3/uL (150-400); Red Blood Cell Count 2.53 X10^6/uL (4.5-5.9); Red Cell Distribution Width 14.6 % (11.6-14.8); White Blood Cell Count 10.1 X10^3/uL (4.5-11.0)
[2021-07-20 06:13] LABS: TSH w/ Reflex to FT4 1.37 uIU/mL (0.47-4.68)
[2021-07-20] MEDS: METOPROLOL ER 50 MG TABLET 200 MG PO (08:16)
[2021-07-20] MEDS: dilTIAZem CD 180 MG CAP 360 MG PO (08:16)
[2021-07-20] MEDS: FERROUS SULFATE 325 MG TABLET PO (08:16)
[2021-07-20] MEDS: PANTOPRAZOLE 40 MG VIAL IV ×2 (08:16→20:42)
[2021-07-20] MEDS: SODIUM CHLORIDE 0.9% FLUSH 10 ML IV ×2 (08:16→20:42)
--- NOTE | 2021-07-20 09:28 | CM.DPC ---
Addendum entered by Lorrie Mercado R.N. 07/20/21 11:29: Met with patient's daughter, Medina Avitia. She indicated, she helps set up her dad's medications, and is sure that he is taking them. Indicated, concerns that he may be missing some. Asked her about safety in the home, if she felt that her father is in a safe position. She indicated, she checks on him frequently, and does all of his shopping for him. Asked her about correction care, fdc, or in home caregivers, and she feel that he does not need any services, except for home health, she thinks that this is a good idea. Attempted to give her a [employer] book, she indicated that she already has one. Did bring her a Medicare Choice List showing the home health agencies that serve the community. She is open to any one of them. Explained their services, and what they do. Spoke to Hyacinth FERNÁNDEZ, who indicated his SLUMMS may be better than what is documented. She will as O.T. tomorrow to do a new SLUMMS. Patient is currently working with P.T. Updated nurse, Laurita, that patient's daughter has some medical questions. She will follow up with daughter. At this time, plan is for home health. Will get face to face signed. Original Note: DCP Cont: Patient was moved to the ICU secondary to his heart rate, patient also was noting anemia, decreased H&H. Spoke to nurseLaurita, at ICU. Asked her if she had seen daughters come in, which have not today. Concerns are noted about medication compliance with patient, which could have caused cardiac issues. Patient is ok with calling daughter. Called Medina, as she is point of contact. Asked her if she or her sister would like to be designated visitor since patient is in ICU. She asked why he is in ICU, did not give her detailed information. She is aware he is in the hospital, since her sister, Alyssa, was visiting him yesterday. Let her know that this case manage would like to meet with her today to discuss discharge planning. She indicated that she will be the visitor, and will meet at approximately 11:10 this morning. Updated nurse, Laurita, who will update Dior, community development aide upon visitor. P: DCP to continue to follow, and will discuss discharge planning today. Patient has not yet worked with P.T, due to cardiac instability. Lorrie Mercado RN/Soap Inspector
[2021-07-20] MEDS: ACETAMINOPHEN 325 MG TABLET 650 MG PO ×2 (10:04→16:47)
--- NOTE | 2021-07-20 11:15 | PT.IIE ---
Current Diagnoses Anemia, unspecified (07/19/21) Unspecified atrial fibrillation (07/19/21) Personal history of other diseases of the digestive system (07/19/21) Medical History (Last Reviewed 07/19/21 @ 22:54 by Rahul Chacon MD) Acquired arteriovenous malformation of stomach Aortic valvular stenosis Atrial fibrillation Atrial flutter, paroxysmal Cholelithiasis Chronic obstructive pulmonary disease Fatigue Gallstone pancreatitis Generalized anxiety disorder History of gastrointestinal hemorrhage History of tobacco abuse Hyperlipidemia Hypertension Memory loss Restrictive lung disease Rheumatoid arthritis Transient cerebral ischemia Physical Therapy Inpatient Evaluation/Re-Eval M1 PT/OT-IP Prior Functional Status Start: 07/20/21 08:45 Freq: NEEDED Status: Active Protocol: Document 07/20/21 11:30 CGR (Rec: 07/20/21 11:40 CGR [id number]) Medical Review Prior Functional Status Medical History Reviewed Yes Communication Pt is an effective verbal communicator. Appears [place]. Mobility and Gait Pt was IND in all mobility with or without SPC. Activities of Daily Living and IADL's Pt was IND in all ADLs and most IADLs except driving. Pt' s daughter drives him for all apointments and shopping. Pt handles medications and bills. Social History Household Members none Living Arrangements Apartment/Condo Number of Floors (Floors) One Floor Number of Stairs To Enter/Railing? no steps Home Environment Standard Height Toilet,Walk in Shower,Built-In Shower Seat Home Equipment Straight Cane,Grab Bars In Shower Employment Status Retired Additional Social History Comment Pt has a flat bed. M1 PT/OT-IP Prior Functional Status Start: 07/20/21 11:30 Freq: NEEDED Status: Active Protocol: Document 07/20/21 11:30 CGR (Rec: 07/20/21 11:40 CGR [id number]) Medical Review Prior Functional Status Medical History Reviewed Yes Communication Pt is an effective verbal communicator. Appears [place]. Mobility and Gait Pt was IND in all mobility with or without SPC. Activities of Daily Living and IADL's Pt was IND in all ADLs and most IADLs except driving. Pt' s daughter drives him for all apointments and shopping. Pt handles medications and bills. Social History Household Members none Living Arrangements Apartment/Condo Number of Floors (Floors) One Floor Number of Stairs To Enter/Railing? no steps Home Environment Standard Height Toilet,Walk in Shower,Built-In Shower Seat Home Equipment Straight Cane,Grab Bars In Shower Employment Status Retired Additional Social History Comment Pt has a flat bed. M2 PT-IP Current Condition Start: 07/20/21 08:45 Freq: NEEDED Status: Active Protocol: Document 07/20/21 11:15 AW (Rec: 07/20/21 12:53 AW [id number]) Physical Therapy Current Condition Current Condition Evaluation Date 07/20/21 Treatment Diagnosis a fib, RVR, difficulty in walking Onset Date 07/19/21 M3 PT-IP Subjective Start: 07/20/21 08:45 Freq: NEEDED Status: Active Protocol: Document 07/20/21 11:15 AW (Rec: 07/20/21 12:53 AW [id number]) Subjective Physical Therapy Visit Type Type Initial Evaluation Visit Start Time 10:55 Visit Stop Time 11:15 Total Visit Minutes 20 Notes Co-eval with OT. Last H&H 7.4/ 23.0. Discussed case with hospitalist who cleared pt for activity. Number of SUPERVISOR CELL MAINTENANCE Visits 0 Physical Therapy Visit Comments Patient Comments Pt is interesting in getting up and out of bed. Patient Goals Return home at discharge. Therapy Pain Assessment Pain When Pain Assessed During Mobility M4 PT-IP Mobility and Gait Start: 07/20/21 08:45 Freq: NEEDED Status: Active Protocol: Document 07/20/21 11:15 AW (Rec: 07/20/21 12:53 AW [id number]) PT-Bed Mobility Assessment Supine to Sit Supine to Sit Standby Assistance Sit to Supine Sit to Supine Standby Assistance Scooting Scooting to Edge of Bed Standby Assistance PT-Transfer Assessment Sit to and From Stand Sit to and from Stand Standby Assistance Equipment Transfer Assistive Device Gait Belt,Straight Cane Orthotic/Prosthetic Devices or Brace: No Transfers Transfer Destination Bed,Chair Transfer Technique ambulated while carrying SPC Transfer Ability Level of Assist Standby Assistance Comments Mobility Comments Pt was lying in bed as PT and OT arrived. He completed supine to sit SBA and stood EOB with SPC SBA. He ambulated around the room holding SPC off the floor with no sign of dyspnea or any distress. Gait was slightly unsteady but pt had no LOB and no need to use SPC while walking. He transferred to the chair and to the toilet SBA. Gait required no more than supervision level of assist. Gait Assessment Gait Gait Assistance Required: Standby Assistance Distance (Feet) 50 Assistive Devices Assistive Device Gait Belt,Straight Cane Orthotic/Prosthetic Devices or Brace: No Gait Deviations General Gait Pattern Lateral Trunk Lean,Narrow Based Gait Comments Gait Comments Gait was notable for mild leftward lean and NBOS but no LOB observed. Per tele, max HR during activity was 126. Stair Climbing Assessment Comments Stair Climbing Comments Not assessed. No stairs at home. PT-Balance Assessment Sitting Balance and Reactions Static Sitting Balance Ability Good Dynamic Sitting Balance Ability Good Standing Balance and Reactions Static Standing Balance Ability Good Dynamic Standing Balance Ability Good Device Used SPC Balance Tests Single Limb Standing 5 sec RLE; 3 sec LLE with increased unsteadiness Tandem Standing able to assume position but can not hold M5 PT-IP Objective Assessments Start: 07/20/21 08:45 Freq: NEEDED Status: Active Protocol: Document 07/20/21 11:15 AW (Rec: 07/20/21 12:53 AW [id number]) Orientation Orientation/Cognition Level of Alertness Confusional State Orientation Name,Month,Place,Situation Language Function Ability Hard of Hearing Safety Awareness Understands Safety Issues Memory Description Short Term Impaired Comments Pt incorrectly reports he has had no falls but his daughter reminds him that 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 Gross Range of Motion Lower Extremity ROM Assessment Within Functional Limits Strength Lower Extremity Strength Assessment Within Functional Limits Hip 4+/5 Knee 5/5 Ankle 5/5 Coordination Assessment Gross Coordination Gross Coordination WNL Assessment Finger to Nose Test Normal Performance Foot Tapping Test Normal Performance Sensation Assessment Sensation Gross Sensation WNL Muscle Tone Muscle Tone WNL Yes M6 PT-IP Treatment Start: 07/20/21 08:45 Freq: NEEDED Status: Active Protocol: Document 07/20/21 11:15 AW (Rec: 07/20/21 12:53 AW [id number]) Physical Therapy Treatment Education Education Provided Safety M7 PT-IP Assessment and Plan Start: 07/20/21 08:45 Freq: NEEDED Status: Active Protocol: Document 07/20/21 11:15 AW (Rec: 07/20/21 12:53 AW [id number]) PT Summary Assessment and Plan Potential Rehabilitation Potential Good Status of Condition at Evaluation Evolving Summary Impairments Balance,Gait Assessment Summary Marvin is an 85 yo man seen for PT evaluation with admitting diagnosis of a fib with RVR. He is modified independent to independent with all mobility at baseline. He denies falls except for 2- 3 falls prior to evaluation for CVA 2-3 months ago. On assessment, pt requires supervision to SBA for all mobility. Max HR during treatment was 126. Advised pt to continue using SPC for balance assist. PT will continue to follow but anticipates pt will be safe to discharge home with family assist. Goals Bed Mobility Goal Independent Transfer Goal Independent Gait Goal Independent,Cane Gait Distance 200 Frequency of Treatment Frequency Of Treatment Once a Day Treatment Plan Physical Therapy Treatment Plan Gait Training,Therapeutic Exercise,Balance Retraining, Discharge Planning, Neuromuscular Re-ed Other Recommendations and Next Treatment increase gait distance with Focus SPC; use portable tele if indicated Recommendations To Nursing Amount of Assist Needed Standby Assistance Discharge Recommendations PT Discharge Recommendations Home with Assistance Transportation Needs at Discharge Private Vehicle
--- NOTE | 2021-07-20 11:18 | OT.IP.EVAL ---
Current Diagnoses Anemia, unspecified (07/19/21) Unspecified atrial fibrillation (07/19/21) Personal history of other diseases of the digestive system (07/19/21) Past Medical History (Last Reviewed 07/19/21 @ 22:54 by Rahul Chacon MD) Acquired arteriovenous malformation of stomach Aortic valvular stenosis Atrial fibrillation Atrial flutter, paroxysmal Cholelithiasis Chronic obstructive pulmonary disease Fatigue Gallstone pancreatitis Generalized anxiety disorder H/O sinus surgery History of aortic valve replacement History of colonoscopy History of esophagogastroduodenoscopy (EGD) History of gastrointestinal hemorrhage History of sinus surgery History of tobacco abuse History of tonsillectomy History of tricuspid valve annuloplasty Hyperlipidemia Hypertension Memory loss Restrictive lung disease Rheumatoid arthritis Status post mitral valve annuloplasty Transient cerebral ischemia Surgical History (Last Reviewed 07/19/21 @ 22:54 by Rahul Chacon MD) H/O sinus surgery History of aortic valve replacement History of colonoscopy History of esophagogastroduodenoscopy (EGD) History of sinus surgery History of tonsillectomy History of tricuspid valve annuloplasty Status post mitral valve annuloplasty Occupational Therapy Inpatient Evaluation/Re-Eval M1 PT/OT-IP Prior Functional Status Start: 07/20/21 08:45 Freq: NEEDED Status: Active Protocol: Document 07/20/21 11:30 CGR (Rec: 07/20/21 11:40 CGR [id number]) Medical Review Prior Functional Status Medical History Reviewed Yes Communication Pt is an effective verbal communicator. Appears [place]. Mobility and Gait Pt was IND in all mobility with or without SPC. Activities of Daily Living and IADL's Pt was IND in all ADLs and most IADLs except driving. Pt' s daughter drives him for all apointments and shopping. Pt handles medications and bills. Social History Household Members none Living Arrangements Apartment/Condo Number of Floors (Floors) One Floor Number of Stairs To Enter/Railing? no steps Home Environment Standard Height Toilet,Walk in Shower,Built-In Shower Seat Home Equipment Straight Cane,Grab Bars In Shower Employment Status Retired Additional Social History Comment Pt has a flat bed. M1 PT/OT-IP Prior Functional Status Start: 07/20/21 11:30 Freq: NEEDED Status: Active Protocol: Document 07/20/21 11:30 CGR (Rec: 07/20/21 11:40 CGR [id number]) Medical Review Prior Functional Status Medical History Reviewed Yes Communication Pt is an effective verbal communicator. Appears [place]. Mobility and Gait Pt was IND in all mobility with or without SPC. Activities of Daily Living and IADL's Pt was IND in all ADLs and most IADLs except driving. Pt' s daughter drives him for all apointments and shopping. Pt handles medications and bills. Social History Household Members none Living Arrangements Apartment/Condo Number of Floors (Floors) One Floor Number of Stairs To Enter/Railing? no steps Home Environment Standard Height Toilet,Walk in Shower,Built-In Shower Seat Home Equipment Straight Cane,Grab Bars In Shower Employment Status Retired Additional Social History Comment Pt has a flat bed. M2 OT-IP Current Condition Start: 07/20/21 11:30 Freq: Status: Active Protocol: Document 07/20/21 11:30 CGR (Rec: 07/20/21 11:40 CGR [id number]) Occupational Therapy Current Condition Current Condition Evaluation Date 07/20/21 Treatment Diagnosis Afib with RVR Diagnosis Onset Date 07/19/21 M3 OT- IP Subjective and Pain Start: 07/20/21 11:30 Freq: Status: Active Protocol: Document 07/20/21 11:30 CGR (Rec: 07/20/21 11:40 CGR [id number]) OT- Subjective Occupational Therapy Visit Type Type Initial Evaluation Visit Start Time 10:55 Visit Stop Time 11:18 Total Visit Minutes 23 Notes co-eval with P.T. OT Pain Assessment Pain When Pain Assessed At Rest Pain Present Pain Present Denied Pain M4 OT- IP ADL's Start: 07/20/21 11:30 Freq: Status: Active Protocol: Document 07/20/21 11:30 CGR (Rec: 07/20/21 11:40 CGR [id number]) OT [id number] Comments OT Self-Feeding Comments Not meal time OT ADL-Grooming Comments OT Grooming Comments Not performed OT ADL-Oral Care Comments Oral Care Comments Not performed OT ADL-Dressing General Eval Lower Body Dressing Ability Independent Areas Needing Assistance Socks Comments OT Dressing Comments seated in chair OT ADL-Toileting General Evaluation Toileting Ability Independent Comments OT Toileting Comments simulated seated on toilet OT ADL-Bathing Comments OT Bathing Comments Not performed M5 OT- IP IADL's Start: 07/20/21 11:30 Freq: Status: Active Protocol: Document 07/20/21 11:30 CGR (Rec: 07/20/21 11:40 CGR [id number]) OT-Instrumental Activities of Daily Living Deficits IADL Deficits Identified No Deficits Home Safety Awareness Awareness of Need for Assistance at Home Good Awareness Ability to Problem Solve Emergency Able to Problem Solve Situations Medication Management Medication Management No Deficits Identified Money Management Money Management No Deficits Identified Meal Preparation Meal Preparation No Deficits Identified Transitions Manager Rn Transitions Manager Rn No Deficits Identified Driving Driving Comments Pt's daughter does all driving . M6 OT- IP Functional Cognition Start: 07/20/21 11:30 Freq: Status: Active Protocol: Document 07/20/21 11:30 CGR (Rec: 07/20/21 11:40 CGR [id number]) Cognitive Factors Limiting Selfcare Function Cognitive Ability Level of Alertness Alert Patient Orientation Name,Age,Birthday,Month,Date, Year,Day of Week,Place, Situation Attention Span Ability Capable of Focused Attention, Capable of Sustained Attention Ability to Follow Commands Able to Follow One Step Commands with Increased Time, Able to Follow One Step Commands with Repetition Cognitive Comments Cognitive Assessment Comments Chart reports last SLUMS score 30 which is inconsistent with pt's current ability. Will perform updated [place]. OT- Vision and Hearing OT- Hearing Assessment OT- Hearing Assessment Hearing Impaired OT- Vision Assessment Visual Acuity Glasses All The Time Visual Attentiveness WFL Occular Pursuits WFL Visual Convergence WFL M7 OT- IP Mobility and Balance Start: 07/20/21 11:30 Freq: Status: Active Protocol: Document 07/20/21 11:30 CGR (Rec: 07/20/21 11:40 CGR [id number]) OT- Bed Mobility Assessment Rolling Level of Assistance Independent Supine to Sit Supine to Sit Assist Independent Sit to Supine Sit to Supine Assist Independent Scooting Scooting to Edge of Bed Independent Scooting Up and Down in Bed Independent OT-Transfer Assessment Sit to and From Stand Sit to and from Stand Standby Assistance Transfers Transfer Ability Standby Assistance Technique Transfer Destination Bed,Chair,Toilet Transfer Technique Stand Step Pivot Devices Transfer Assistive Devices Gait Belt,Straight Cane Comments Mobility Comments Mobility around the room holding the cane vs using it for support. Supervision to SBA. OT- Balance Assessment Sitting Balance and Reactions Static Sitting Balance Ability Normal Dynamic Sitting Balance Ability Good M8 OT- IP Objective Assessments Start: 07/20/21 11:30 Freq: Status: Active Protocol: Document 07/20/21 11:30 CGR (Rec: 07/20/21 11:40 CGR [id number]) OT Gross Range of Motion Upper Extremity Range of Motion Assessment Within Functional Limits OT Strength Upper Extremity Strength Assessment Within Functional Limits Comments Strength Comments 5-/5 OT- Coordination Assessment Upper Extremity Finger to Nose Test Within Functional Limits Finger Tapping Test Within Functional Limits OT-Muscle Tone Assessment Muscle Tone WNL Yes OT Sensation Assessment Edema Edema Absent M9 OT- IP Assessment and Plan Start: 07/20/21 11:30 Freq: Status: Active Protocol: Document 07/20/21 11:30 CGR (Rec: 07/20/21 11:40 CGR [id number]) OT Summary Assessment and Plan Potential Rehabilitation Potential Excellent Analytic Complexity at Evaluation Low Summary OT Impairments Functional Cognition Progress Towards Goals Progressing Toward Goals Assessment Summary Pt presents as a low complexity evaluation s/p admit for Afib with RVR. Pt is mobilizing well and shows excellent dexterity with ability to change the height of his SPC when requested. Chart states last SLUMS 07/30 which is inconsistent with current cog abilities. Will keep on caseload for SLUMS assessment as ECHO waiting to see pt at the end of this session. OK for d/c home with family support. Goals OT-Other Goals Perform SLUMS for more current cog assessment on file. Days to Meet Goals 1 Frequency of Treatment Frequency Of Treatment Once a Day Treatment Plan OT Treatment Plan Functional Cognition Training Other Treatment Recommendations and Next SLUMS Treatment Focus Discharge Recommendations OT Discharge Recommendations Home Transportation Needs at Discharge Private Vehicle
--- NOTE | 2021-07-20 15:33 | CM.DPC ---
DCP Cont: After conversation with daughter, Medina, confirmed as stated in previous note, she thinks home health is a good idea. She has no preferences upon home health agencies. Calendar for this week states that [facility] is random agency for this week, and they serve [facility]. Called Evelyn at [facility] and informed her about the referral. Asked her if they accept [employer], and confirmed that they do accept. Let her know that patient is not yet ready for DC, but could be in the next day or two. Let her know that he would benefit with nursing, may add P.T. and O.T. as well. Faxed over the referral to [facility]. Informed Evelyn at [facility], that daughter, Medina, is point of contact, and also, wrote that on the face sheet. Faxed over the face sheet, face to face, H&P, P.T, and O.T. notes. Pending orders, which will send up DC summary at discharge. P: DCP to continue to follow. Plan is for discharge home with [facility] nursing, P.T, and O.T. Lorrie Mercado RN/Lines Tender
--- NOTE | 2021-07-20 15:48 | P.PN_ITS ---
Subjective Subjective Date Patient Seen: 07/20/21 Time Patient Seen: 15:48 Interval history: patient denies complaints today. He intermittently converts to sinus rhythm and stays there. However after some time and sometimes with exertion develops afib/flutter with rates to the 140s. dilt drip started overnight with conversion to NSR this morning, returned with cessation of infusion. Exam Vital Signs (past 8 hours): - 07/20/21 08:00 07/20/21 08:16 07/20/21 08:30 Temperature 98.5 F Pulse Rate 108 H 146 H Respiratory Rate 21 Blood Pressure 113/52 L 112/52 L Pulse Oximetry 95 94 07/20/21 09:36 07/20/21 12:00 07/20/21 12:33 Temperature 98.2 F Pulse Rate 73 73 Respiratory Rate 19 Blood Pressure 113/55 L 95/46 L Pulse Oximetry 95 93 Oxygen Delivery Method Nasal Cannula Oxygen Flow Rate 3 Narrative Exam Narrative: GENERAL APPEARANCE: somewhat frail, elderly male in no acute distress. SKIN: Inspection of the skin reveals scattered upper extremity bruising, no other notable lesions. HEENT:? Normocephalic atraumatic, extraocular muscles are intact, oropharynx is clear and mucous membranes are moist, neck is supple without adenopathy NECK: Supple and symmetric. There was no thyroid enlargement, and no tenderness, or masses were felt. CHEST: Normal AP diameter and normal contour without any kyphoscoliosis. LUNGS: Auscultation of the lungs revealed no wheezes, rhonchi, or rales. CARDIOVASCULAR: tachycardic, regular rhythm. no m/r/g. ABDOMEN: S, NT, ND. MUSCULOSKELETAL: There was no tenderness or effusions noted. Muscle strength and tone were normal. EXTREMITIES: No cyanosis, clubbing or edema. NEUROLOGIC: Alert and oriented to name and place. Normal affect.? Cognitive impairment evident.? Strength is +5/5 in the Upper Extremities and Lower Extremities Bilaterally. Sensation to touch was normal. Objective Labs Result Diagrams: 07/20/21 04:46 07/20/21 04:46 Labs: Laboratory Results - last 24 hr 07/19/21 07/19/21 07/19/21 13:00 20:00 21:19 WBC RBC Hgb 7.1 L Hct 22.4 L MCV MCH MCHC RDW Plt Count Neut % (Auto) Lymph % (Auto) [place] % (Auto) Eos % (Auto) Baso % (Auto) Neut # (Auto) Lymph # (Auto) [place] # (Auto) Eos # (Auto) Baso # (Auto) Haptoglobin 116 Sodium Potassium Chloride Carbon Dioxide BUN Creatinine Estimated GFR BUN/Creatinine Ratio Glucose Calcium Magnesium NT-Pro-B Natriuret Pep TSH Nasal Screen MRSA (PCR) Negative for mrsa 07/19/21 07/20/21 07/20/21 21:19 04:46 04:46 WBC 10.1 RBC 2.53 L Hgb 7.4 L Hct 23.0 L MCV 91.1 MCH 29.1 MCHC 31.9 RDW 14.6 Plt Count 192 Neut % (Auto) 80.5 H Lymph % (Auto) 9.5 L [place] % (Auto) 8.1 Eos % (Auto) 0.7 L Baso % (Auto) 1.2 Neut # (Auto) 8200 H Lymph # (Auto) 1000 L [place] # (Auto) 800 Eos # (Auto) 100 Baso # (Auto) 100 Haptoglobin Sodium 141 Potassium 4.2 Chloride 109 H Carbon Dioxide 30 BUN 23 H Creatinine 0.76 Estimated GFR > 60.0 BUN/Creatinine Ratio 30.3 H Glucose 110 Calcium 8.1 L Magnesium 1.9 NT-Pro-B Natriuret Pep 1990 H TSH Nasal Screen MRSA (PCR) 07/20/21 04:46 WBC RBC Hgb Hct MCV MCH MCHC RDW Plt Count Neut % (Auto) Lymph % (Auto) [place] % (Auto) Eos % (Auto) Baso % (Auto) Neut # (Auto) Lymph # (Auto) [place] # (Auto) Eos # (Auto) Baso # (Auto) Haptoglobin Sodium Potassium Chloride Carbon Dioxide BUN Creatinine Estimated GFR BUN/Creatinine Ratio Glucose Calcium Magnesium NT-Pro-B Natriuret Pep TSH 1.37 Nasal Screen MRSA (PCR) [facility] Medical History Acquired arteriovenous malformation of stomach Aortic valvular stenosis Atrial fibrillation Atrial flutter, paroxysmal Cholelithiasis Chronic obstructive pulmonary disease Fatigue Gallstone pancreatitis Generalized anxiety disorder History of gastrointestinal hemorrhage History of tobacco abuse Hyperlipidemia Hypertension Memory loss Restrictive lung disease Rheumatoid arthritis Transient cerebral ischemia Surgical History H/O sinus surgery History of aortic valve replacement History of colonoscopy History of esophagogastroduodenoscopy (EGD) History of sinus surgery History of tonsillectomy History of tricuspid valve annuloplasty Status post mitral valve annuloplasty Family History Father Heart disease Hypertension Mother Heart disease Sister Heart disease Cancer Social History household members: none Smoking Status: Former smoker Tobacco: How many years used: 60 alcohol intake: former substance use type: does not use Assessment & Plan Assessment & Plan narrative: 1. Chronic atrial flutter/Atrial fibrillation with rapid ventricular response. Patient with rapid AFib, suspect medication non-compliance at home. restarted home medications, appears slightly dehydrated and worsened anemia compared to previous. continue home dilt and metoprolol. Consider cardiology consultation. Likely amiodarone will be needed. control issues may be related to new anemia. -TSH 1.37 2. acute on chronic anemia, normocytic. ?- possible bleeding Obtain stool guaiac. No current signs or symptoms however. ?- Hg stabilized today, downtrended to 7.1 now up to 7.4. No transfusions given. Hemloysis unlikely with normal LDH. - has a history of AVM for which he is not on AC. Change to IV PPI BID instead of PO today. 4.? Essential hypertension, chronic, stable, not present on admission - continue rate control agents at this time, hold lisinopril and other medications. Blood pressures currently low-normal. 5.. Hyperlipidemia, chronic, stable, not present on admit -Will continue patient's home regimen of atorvastatin 20 mg daily. 6.? COPD with restrictive lung disease, chronic, stable, not present on image - continue home medications, albuterol prn. 7. chronic cognitive impairment. - previous SLUMS 07/30. OT plans to repeat tomorrow as he appears much better than that currently. Code: DNR, surrogate he states is his daughter. Dispo: admitted under observation, change to inpatient given possible bleeding, continued fall in h/h, and uncontrolled afib. PT/OT to check safety for home environment. Lives alone. Check home assistance available. DVT: hold lovenox given h/h drop. Time Spent With Patient Critical Care time: I spent a total of [] minutes of critical care time on this patient's care today; this time is exclusive of procedural time. Quality VTE Deep Vein Thrombosis/Pulmonary Embolism Present on Admission: No
[2021-07-20] MEDS: METOPROLOL ER 50 MG TABLET 100 MG PO (16:47)
[2021-07-20] MEDS: ATORVASTATIN 20 MG TABLET PO (20:42)
--- NOTE | 2021-07-20 21:05 | PM.ICURNDS ---
- :: This patient was seen via real time interactive two-way audiovisual telecommunication. Note: Patient weaned off Diltiazem drip. Pt. currently on Metoprolol 200 mg PO QAM and 100 mg QHS as well as Diltaizem 360 ER PO QD and with that Afib/flutter is rated controlled with HR in the 70-100s. BP stable. Hgb stable at 7.1-7.7 in the last 2 days. No clinical overt signs of bleeding. Will send type and screen and plan to transfuse RBC if hgb trends down to < 7 or if there is hypotention and clinical signs of acute bleeding.
[2021-07-20] MEDS: LORazepam 0.5 MG TABLET PO (22:08)
[2021-07-20] MEDS: MELATONIN 3 MG TABLET 6 MG PO (23:24)
[2021-07-21] VITALS (25 sets, daily range): BP systolic 108–126; BP diastolic 52–77; PULSE 70–148; RESP 17–29; TEMP 28.1–37.2; O2SAT 91–99
[2021-07-21 05:32] LABS: BUN Creatinine Ratio 30.7 (6-22); Blood Urea Nitrogen 23 mg/dL (9-20); Calcium 8.2 mg/dL (8.4-10.2); Carbon Dioxide 35 mmol/L (22-32); Chloride 106 mmol/L (98-107); Estimated Glomerular Filt Rate > 60.0 mL/min (>60); Glucose 119 mg/dL (80-110); HEMOLYSIS < 15 (0-50); Magnesium 1.9 mg/dL (1.6-2.3); Potassium 4.4 mmol/L (3.4-5.1); Sodium 140 mmol/L (137-145)
[2021-07-21 05:34] LABS: Add Manual Diff / Slide Review NO; Basophils Absolute Auto 100 /uL (0-100); Basophils Percent Auto 0.6 % (0-2); Eosinophils Absolute Auto 0 /uL (0-450); Eosinophils Percent Auto 0.4 % (2-4); Lymphocytes Absolute Auto 600 /uL (1100-4500); Lymphocytes Percent Auto 5.3 % (25-40); Mean Corpuscular HGB Conc 31.5 % (30-36); Mean Corpuscular Volume 91.9 fL (80-100); Monocytes Absolute Auto 900 /uL (0-900); Monocytes Percent Auto 8.2 % (3-14); Neutrophils Absolute Auto 9000 /uL (1500-7000); Neutrophils Percent Auto 85.5 % (50-75); Platelet Count 181 X10^3/uL (150-400); Red Blood Cell Count 2.28 X10^6/uL (4.5-5.9); Red Cell Distribution Width 14.5 % (11.6-14.8); White Blood Cell Count 10.5 X10^3/uL (4.5-11.0)
[2021-07-21 05:48] LABS: Hematocrit 20.9 % (41-53); Hemoglobin 6.6 g/dL (13.5-17.5)
[2021-07-21] MEDS: METOPROLOL ER 50 MG TABLET 200 MG PO (09:06)
[2021-07-21] MEDS: PANTOPRAZOLE 40 MG VIAL IV (09:06)
[2021-07-21] MEDS: dilTIAZem CD 180 MG CAP 360 MG PO (09:06)
[2021-07-21] MEDS: ACETAMINOPHEN 325 MG TABLET 650 MG PO ×2 (09:07→18:31)
[2021-07-21] MEDS: SODIUM CHLORIDE 0.9% FLUSH 10 ML IV ×2 (09:08→21:05)
[2021-07-21] MEDS: FERROUS SULFATE 325 MG TABLET PO (09:09)
[2021-07-21] MEDS: AMIODARONE 150 MG/100 ML PIGGYBACK 600 MG IV (09:57)
[2021-07-21] MEDS: LORazepam 0.5 MG TABLET PO ×3 (10:00→19:24)
[2021-07-21] MEDS: AMIODARONE 360 MG/200 ML PIGGYBACK 33.3 MG IV (10:03)
--- NOTE | 2021-07-21 10:05 | PT-IP ANOTE ---
Pt's H&H this AM 6.6/20.9. RN confirms pt to receive transfusion. PT will hold therapy at this time.
--- NOTE | 2021-07-21 10:11 | DIET.CONS ---
Dietary Consultation Note Admission Date: 07/19/2021 11:08 Assessment: 85y lactose intolerant M admitted for afib/aflutter and dehydration referred to nutrition for difficulty recalling home PO intake and weight status. Pt has dementia, oriented to self only (SLUMS 07/30), lives alone in [facility] with frequent checks and med management by family. Pts chart indicates large swings in weight fluctuating between 74 and 84kg over past 3y with this hospitalization on the low end at 74.8kg with 12.4% unintentional weight loss in 5 mo (severe). Medicine feels current hospitalization influenced by missed medication dosing secondary to pt living alone c reduced situational awareness. This likely culprit for dehydration and recent drop in body weight as well. Pt eating well in hospital with assistance ordering and meal tray set up. Pt c chronic anemia requiring multiple blood transfusions, bleeding source unknown at this time. Ht: 182.88 cm Wt: 74.8 kg BMI: 23.3 UBW: 74-84kg x3y Last BM: 07/20/21 (07/20/21 14:56) MNA: 10 [place] Score: 22 Diet: 07/21/21 Breakfast Clear Liquid Diet Diet Modifications: Nutrition Percent Meal Consumed 100% 07/20/21 18:07 Percent Meal Consumed 50% 07/20/21 08:00 Percent Meal Consumed 100% 07/19/21 17:24 Percent Meal Consumed 25% 07/19/21 12:30 Labs: hgb 6.6 L, hct 20.9 L, calcium 8.2 L Nutrition Dx: Severe Acute on Chronic Protein Calorie Malnutrition r/t decreased situational awareness secondary to dementia aeb 12.4% unintentional weight loss in 5mo (severe), [facility] 07/30, pt lives alone with family checking in to set up meds and meals. EER: 2,200kcal (30kcal/kg per PCM), 80g PRO (1.1g/kg per PCM) Interventions: 1. Recc ONS Ensure Enlive bid while in hospital and upon d/c to support nutrition status and hydration. ONS is lactose-free and provides 50% protein and 30% kcals in addition to meal trays, plus important vitamins and minerals. 2. Recc more closely monitoring PO intake at home, surveillence for food safety and fire safety secondary to decreased situational awareness with dementia. Monitoring/Evaluation: POs
--- NOTE | 2021-07-21 10:17 | P.PN_ITS ---
Subjective Subjective Date Patient Seen: 07/21/21 Time Patient Seen: 10:17 Interval history: Returned to rapid rate of 140 this morning, likely flutter. amiodarone loading started after discussing with caridology yesterday. Hg to 6.6. Patient feels fatigued and slightly dizzy. Ordered for 2 U PRBC. Rectal exam with soft, dark stool, guaiac positive. Discussed with patient and daughter, agreeable for endoscopy. Will discuss with general surgery today. Exam Vital Signs (past 8 hours): - 07/21/21 03:10 07/21/21 03:16 07/21/21 07:05 Temperature 97.9 F Pulse Rate 80 Respiratory Rate 18 Blood Pressure 112/65 Pulse Oximetry 94 98 96 07/21/21 08:00 07/21/21 08:59 07/21/21 09:06 Temperature 98.9 F 98.9 F Pulse Rate 148 H 148 H 148 H Respiratory Rate 29 H 25 H Blood Pressure 114/57 L 112/77 114/57 L Pulse Oximetry 94 07/21/21 09:07 07/21/21 09:16 07/21/21 09:50 Temperature 98.9 F 98.8 F Pulse Rate 147 H 125 H Respiratory Rate 19 Blood Pressure 108/57 L 108/57 L Pulse Oximetry Oxygen Delivery Method Nasal Cannula Oxygen Flow Rate 2 Narrative Exam Narrative: GENERAL APPEARANCE: somewhat frail, elderly male in no acute distress. SKIN: Inspection of the skin reveals scattered upper extremity bruising, no oth er notable lesions. HEENT:? Normocephalic atraumatic, extraocular muscles are intact, oropharynx is clear and mucous membranes are moist, neck is supple without adenopathy NECK: Supple and symmetric. There was no thyroid enlargement, and no tenderness, or masses were felt. CHEST: Normal AP diameter and normal contour without any kyphoscoliosis. LUNGS: Auscultation of the lungs revealed no wheezes, rhonchi, or rales. CARDIOVASCULAR: tachycardic, regular rhythm. no m/r/g. ABDOMEN: S, NT, ND. rectal: soft stool melenotic appearing, good rectal tone, guaiac positive MUSCULOSKELETAL: There was no tenderness or effusions noted. Muscle strength and tone were normal. EXTREMITIES: No cyanosis, clubbing or edema. NEUROLOGIC: Alert and oriented to name and place. Normal affect.? Cognitive impairment evident.? Strength is +5/5 in the Upper Extremities and Lower Extremities Bilaterally. Sensation to touch was normal. Objective Labs Result Diagrams: 07/21/21 04:56 07/21/21 04:56 Labs: Laboratory Results - last 24 hr 07/20/21 07/21/21 07/21/21 21:09 04:56 04:56 WBC 10.5 RBC 2.28 L Hgb 6.6 L* Hct 20.9 L* MCV 91.9 MCH 29.0 MCHC 31.5 RDW 14.5 Plt Count 181 Neut % (Auto) 85.5 H Lymph % (Auto) 5.3 L [place] % (Auto) 8.2 Eos % (Auto) 0.4 L Baso % (Auto) 0.6 Neut # (Auto) 9000 H Lymph # (Auto) 600 L [place] # (Auto) 900 Eos # (Auto) 0 Baso # (Auto) 100 Sodium 140 Potassium 4.4 Chloride 106 Carbon Dioxide 35 H BUN 23 H Creatinine 0.75 Estimated GFR > 60.0 BUN/Creatinine Ratio 30.7 H Glucose 119 H Calcium 8.2 L Magnesium 1.9 Blood Type O Positive Antibody Screen Negative Crossmatch See Detail [facility] Medical History Acquired arteriovenous malformation of stomach Aortic valvular stenosis Atrial fibrillation Atrial flutter, paroxysmal Cholelithiasis Chronic obstructive pulmonary disease Fatigue Gallstone pancreatitis Generalized anxiety disorder History of gastrointestinal hemorrhage History of tobacco abuse Hyperlipidemia Hypertension Memory loss Restrictive lung disease Rheumatoid arthritis Transient cerebral ischemia Surgical History H/O sinus surgery History of aortic valve replacement History of colonoscopy History of esophagogastroduodenoscopy (EGD) History of sinus surgery History of tonsillectomy History of tricuspid valve annuloplasty Status post mitral valve annuloplasty Family History Father Heart disease Hypertension Mother Heart disease Sister Heart disease Cancer Social History household members: none Smoking Status: Former smoker Tobacco: How many years used: 60 alcohol intake: former substance use type: does not use Assessment & Plan Assessment & Plan narrative: 1. Chronic atrial flutter/Atrial fibrillation with rapid ventricular response. Patient with rapid AFib, suspect medication non-compliance at home. restarted home medications, appears slightly dehydrated and worsened anemia likely contributing. continue home dilt and metoprolol. discussed with cardiology, recommended amiodarone loading given soft BPs. control issues may be related to new anemia. -TSH 1.37 2. acute on chronic anemia, normocytic. ?- guaiac positive on rectal today. Had normal appearing stool according to nursing reports. rectal exam today with very dark material. ?- Hg to 6.6 this AM, given 2 U PRBC. - has a history of AVM for which he is not on AC. Changed to IV PPI BID instead of PO. Decrease to clears today. - surgery consult for endoscopy. Patient and daughter agreeable. 4.? Essential hypertension, chronic, stable, not present on admission - continue rate control agents at this time, hold lisinopril and other medications. Blood pressures currently low-normal. 5.. Hyperlipidemia, chronic, stable, not present on admit -Will continue patient's home regimen of atorvastatin 20 mg daily. 6.? COPD with restrictive lung disease, chronic, stable, not present on image - continue home medications, albuterol prn. 7. chronic cognitive impairment. ?- previous SLUMS 07/30. OT plans to repeat today as he appears much better than that currently. Code: DNR, surrogate he states is his daughter. Dispo: plan for discharge home when medically stable, with home health. continue PT / OT when bleeding improves. timing unclear at this time. DVT: hold lovenox given h/h drop. Time Spent With Patient Critical Care time: I spent a total of [] minutes of critical care time on this patient's care today; this time is exclusive of procedural time. Quality VTE Deep Vein Thrombosis/Pulmonary Embolism Present on Admission: No
--- NOTE | 2021-07-21 10:32 | OT.IP.TRT ---
Current Diagnoses Anemia, unspecified (07/19/21) Unspecified atrial fibrillation (07/19/21) Personal history of other diseases of the digestive system (07/19/21) Occupational Therapy Treatment Note M2 OT-IP Current Condition Start: 07/20/21 11:30 Freq: Status: Active Protocol: Document 07/20/21 11:30 CGR (Rec: 07/20/21 11:40 CGR [id number]) Occupational Therapy Current Condition Current Condition Evaluation Date 07/20/21 Treatment Diagnosis Afib with RVR Diagnosis Onset Date 07/19/21 M3 OT- IP Subjective and Pain Start: 07/20/21 11:30 Freq: Status: Active Protocol: Document 07/21/21 10:36 CCC (Rec: 07/21/21 10:50 CCC [id number]) OT- Subjective Occupational Therapy Visit Type Type Treatment Note Visit Start Time 10:05 Visit Stop Time 10:32 Total Visit Minutes 27 Occupational Therapy Visit Comments Patient Comments Pt getting blood transfused and agreed to do SLUMS. Patient/Caregiver Goals To go home. M4 OT- IP ADL's Start: 07/20/21 11:30 Freq: Status: Active Protocol: Document 07/20/21 11:30 CGR (Rec: 07/20/21 11:40 CGR [id number]) OT [id number] Comments OT Self-Feeding Comments Not meal time OT ADL-Grooming Comments OT Grooming Comments Not performed OT ADL-Oral Care Comments Oral Care Comments Not performed OT ADL-Dressing General Eval Lower Body Dressing Ability Independent Areas Needing Assistance Socks Comments OT Dressing Comments seated in chair OT ADL-Toileting General Evaluation Toileting Ability Independent Comments OT Toileting Comments simulated seated on toilet OT ADL-Bathing Comments OT Bathing Comments Not performed M5 OT- IP IADL's Start: 07/20/21 11:30 Freq: Status: Active Protocol: Document 07/20/21 11:30 CGR (Rec: 07/20/21 11:40 CGR [id number]) OT-Instrumental Activities of Daily Living Deficits IADL Deficits Identified No Deficits Home Safety Awareness Awareness of Need for Assistance at Home Good Awareness Ability to Problem Solve Emergency Able to Problem Solve Situations Medication Management Medication Management No Deficits Identified Money Management Money Management No Deficits Identified Meal Preparation Meal Preparation No Deficits Identified General Manager Food General Manager Food No Deficits Identified Driving Driving Comments Pt's daughter does all driving . M6 OT- IP Functional Cognition Start: 07/20/21 11:30 Freq: Status: Active Protocol: Document 07/21/21 10:36 [facility] (Rec: 07/21/21 10:50 [facility] [id number]) Cognitive Factors Limiting Selfcare Function Cognitive Ability Level of Alertness Alert Patient Orientation Name,Age,Birthday,Month,Date, Year,Day of Week,Place, Situation Attention Span Ability Capable of Focused Attention, Capable of Sustained Attention Ability to Follow Commands Able to Follow One Step Commands with Increased Time, Able to Follow One Step Commands with Repetition Memory Description Short Term Impaired Problem Solving Ability Needs Assist to Identify Solutions Executive Function Ability Unable to Remember Details Cognitive Tests SLUMS Pt scored 14/30 on the SLUMS and pt's score implies dementia. Pt's did not know the day of the week, unable to figure out in his mind what 100-23 was, but able to do when written out, only able to recall 6 animals in one minute, unable to recall any of the 5 words after time passed, and able to answer 1 of the 4 questions right after a paragraph read. Cognitive Comments Cognitive Assessment Comments Pt states his short term memory in non-existent and has to write things down right away otherwise he forgets. Able to suggest to pt to look into getting a LIfe Alert, case management notified of pt interest. Pt aware that he is not remembering well but seems to do things in a structured way at home, however would be beneficial for pt to have 24/ available assist for needs. Pt able answer most safety situations with good accuracy, except for pt states would open the door to a stranger. M7 OT- IP Mobility and Balance Start: 07/20/21 11:30 Freq: Status: Active Protocol: Document 07/20/21 11:30 CGR (Rec: 07/20/21 11:40 CGR [id number]) OT- Bed Mobility Assessment Rolling Level of Assistance Independent Supine to Sit Supine to Sit Assist Independent Sit to Supine Sit to Supine Assist Independent Scooting Scooting to Edge of Bed Independent Scooting Up and Down in Bed Independent OT-Transfer Assessment Sit to and From Stand Sit to and from Stand Standby Assistance Transfers Transfer Ability Standby Assistance Technique Transfer Destination Bed,Chair,Toilet Transfer Technique Stand Step Pivot Devices Transfer Assistive Devices Gait Belt,Straight Cane Comments Mobility Comments Mobility around the room holding the cane vs using it for support. Supervision to SBA. OT- Balance Assessment Sitting Balance and Reactions Static Sitting Balance Ability Normal Dynamic Sitting Balance Ability Good M8 OT- IP Objective Assessments Start: 07/20/21 11:30 Freq: Status: Active Protocol: Document 07/20/21 11:30 CGR (Rec: 07/20/21 11:40 CGR [id number]) OT Gross Range of Motion Upper Extremity Range of Motion Assessment Within Functional Limits OT Strength Upper Extremity Strength Assessment Within Functional Limits Comments Strength Comments 5-/5 OT- Coordination Assessment Upper Extremity Finger to Nose Test Within Functional Limits Finger Tapping Test Within Functional Limits OT-Muscle Tone Assessment Muscle Tone WNL Yes OT Sensation Assessment Edema Edema Absent M9 OT- IP Assessment and Plan Start: 07/20/21 11:30 Freq: Status: Active Protocol: Document 07/21/21 10:36 [facility] (Rec: 07/21/21 10:50 CCC [id number]) OT Summary Assessment and Plan Potential Rehabilitation Potential Good Analytic Complexity at Evaluation Low Summary OT Impairments Functional Cognition Progress Towards Goals Progressing Toward Goals Assessment Summary Pt's main barrier is his decreased short term memory which pt is highly aware of and states writes things down constantly. Pt would benefit form 24/7 available assist and wanting information of Life Alert, case management aware. Goals Shower Transfer Goal Independent Days to Meet Goals 5 Frequency of Treatment Frequency Of Treatment Once a Day Treatment Plan OT Treatment Plan ADL Training,Functional Cognition Training Other Treatment Recommendations and Next GO ove memory strategies with Treatment Focus pt. Discharge Recommendations OT Discharge Recommendations Home with 24/7 Assist Available Transportation Needs at Discharge Private Vehicle
--- NOTE | 2021-07-21 11:24 | CM.DPC ---
Addendum entered by Lorrie Mercado R.N. 07/21/21 14:41: Checked in with patient today. He is pleasant, sitting up in bed, somewhat short of breath. He is on oxygen. Asked him about having a nurse come to his house, and he thought it was a good idea. Confirmed with him that his daughter, Medina, lives nearby. Let him know that discharge planners will continue to check in with him. Original Note: DCP Cont: Discussed patient during team rounds. He is still in a-fib, and his hgb/hct has dropped. Patient may be getting EGD today to determine where he is bleeding. Melanie in O.T. has seen patient. He scored 14 out of 30, in SLUMMS, which she indicated, is an improvement from the last time he was here. He does have memory issues, but writes things down so he will remember. She indicated, he would benefit with [facility]. Can address this with daughter. O.T. also indicated that daughter, Medina, just got , and patient stated, he would not be comfortable staying with them, and his other daughter lives in [place] in a small place. Having home health come in will be helpful, although it is short term. P: DCP to continue to check in. Patient is not medically stable for discharge. When patient is medically ready, will follow up with [facility], which has already been ordered for nursing, P.T, and O.T. DC Summary and orders will then need to be sent. Lorrie Mercado RN/Road Conductor
--- NOTE | 2021-07-21 14:45 | DI.RAD.S_ITS ---
PROCEDURE: XR CHEST 1V INDICATIONS: shortness of breath TECHNIQUE: One view of the chest was acquired. COMPARISON: [facility], CT, CT ABDOMEN PELVIS W CON, 04/14/2021, 11:35. [facility], CR, XR CHEST 1V, 07/18/2021, 8:42. FINDINGS: Surgical changes and devices: Post median sternotomy. Valve replacements. Lungs and pleura: Mild opacity at the left lung base. Blunting of the left costophrenic angle. No pneumothorax. Mediastinum: Mediastinal contours appear normal. Heart size is within normal limits. Bones and chest wall: No suspicious bony lesions. Overlying soft tissues appear unremarkable. IMPRESSION: Mild airspace opacity at the left lung base. Small left pleural effusion. Dictated by: Ash Giles M.D. on 07/21/2021 at 15:12 Approved by: Ash Giles M.D. on 07/21/2021 at 15:14
[2021-07-21] MEDS: FUROSEMIDE 20 MG/2 ML VIAL IV (15:00)
--- NOTE | 2021-07-21 15:31 | PT-IP ANOTE ---
Pt supine when arrived. Pt had hard time talking due to SOB, was using supplimental O2. Pt stated I can't do anything right now, am to short of breath and really tired. Can you come back tomorrow, I am hoping I will feel better? 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 Will continue to assess progress tomorrow.
[2021-07-21] MEDS: AMIODARONE 360 MG/200 ML PIGGYBACK 16.7 MG IV (15:46)
[2021-07-21] MEDS: METOPROLOL ER 50 MG TABLET 100 MG PO (17:02)
[2021-07-21 18:39] LABS: COVID19 -Nasal RAPID Negative (Negative)
[2021-07-21] MEDS: QUETIAPINE 25 MG TABLET PO (18:42)
[2021-07-21 18:43] LABS: Hematocrit 29.9 % (41-53); Hemoglobin 9.6 g/dL (13.5-17.5)
--- NOTE | 2021-07-21 19:08 | PM.CN ---
History of Present Illness Consult details Date Patient Seen: 07/21/21 Time Patient Seen: 19:09 Chief complaint: not feeling well/tachy for ems Narrative: 85 man admitted to the hospital for atrial tachycardia with RVR and anemia. History of afib, aflutter, aortic stenosis and COPD with gastric AVM (prior GI bleed). He has remained in the hospital for several days for control of tachycardia no on amio drip. Today Hct 21 from baseline of 40's and guiac positive. No blood per rectum or hematemesis. Consulted for GI bleed and requested esophagoduodenoscopy. Meds Home Medications and Allergies Home Medications Medication Instructions Recorded Confirmed Type atorvastatin 20 mg tablet (Lipitor) 20 mg PO BEDTIME #0 05/16/17 07/18/21 History lorazepam 1 mg tablet 1 mg PO DAILY PRN #0 11/24/17 07/18/21 History ascorbic acid (vitamin C) 500 mg 500 mg PO QID 05/21/18 07/18/21 History tablet (Vitamin C) diltiazem HCl 180 mg 360 mg PO DAILY 05/21/18 07/18/21 History capsule,extended release 24 hr metoprolol succinate 100 mg 200 mg PO QAM 05/21/18 07/18/21 History tablet,extended release 24 hr (Toprol XL) acetaminophen 500 mg tablet 500 mg PO Q6H PRN 12/01/18 07/18/21 History cholecalciferol (vitamin D3) 50 2,000 unit PO BID 12/01/18 07/18/21 History mcg (2,000 unit) capsule (Vitamin D3) coenzyme Q10 100 mg capsule 300 mg PO DAILY 12/01/18 07/18/21 History (CoQ-10) cyanocobalamin (vitamin B-12) 100 100 mcg PO BID 12/01/18 07/18/21 History mcg tablet diphenhydramine 25 2 tab PO BEDTIME PRN 12/01/18 07/18/21 History mg-acetaminophen 500 mg tablet (Tylenol PM Extra Strength) ferrous sulfate 325 mg (65 mg 325 mg PO DAILY 12/01/18 07/18/21 History iron) tablet furosemide 20 mg tablet (Lasix) 20 mg PO QAM 12/01/18 07/18/21 History lisinopril 2.5 mg tablet 2.5 mg PO DAILY 12/01/18 07/18/21 History metoprolol succinate 100 mg 100 mg PO QPM 12/01/18 07/18/21 History tablet,extended release 24 hr sswigedj-qho-knrog acid 300 1 tab PO DAILY 12/01/18 07/18/21 History mcg-lycopene 600 mcg-lutein 300 mcg tablet (Centrum Silver Men) pantoprazole 40 mg tablet,delayed 40 mg PO BID 12/01/18 07/18/21 History release sennosides 8.6 mg-docusate sodium 1 tab PO DAILY PRN 12/01/18 07/18/21 History 50 mg tablet (Senna-S) Allergies Allergy/AdvReac Type Severity Reaction Status Date / Time aspirin [ASPIRIN] Allergy Intermediate HIVES, Verified 06/27/21 14:49 EARS RING lactose [LACTOSE] Allergy Unknown Verified 06/27/21 14:49 Exam Vital Signs (past 8 hours): - 07/21/21 11:15 07/21/21 11:45 07/21/21 11:48 Temperature 98 F 98.1 F Pulse Rate 90 95 H Respiratory Rate 20 17 Blood Pressure 108/52 L 108/52 L Pulse Oximetry 94 92 07/21/21 11:50 07/21/21 12:06 07/21/21 12:55 Temperature 98.1 F 98.3 F Pulse Rate 95 H 71 Respiratory Rate 17 20 Blood Pressure 108/52 L 110/57 L Pulse Oximetry 95 07/21/21 13:37 07/21/21 14:47 07/21/21 16:00 Temperature 98.4 F Pulse Rate 71 70 Respiratory Rate 24 28 H Blood Pressure 118/57 L Pulse Oximetry 92 99 07/21/21 16:10 07/21/21 17:02 07/21/21 17:32 Temperature 97.8 F Pulse Rate 117 H 90 114 H Respiratory Rate 25 H Blood Pressure 126/77 126/77 115/59 L Pulse Oximetry 98 07/21/21 17:41 07/21/21 18:57 Temperature 82.6 F L Pulse Rate 106 H Respiratory Rate 28 H Blood Pressure 115/59 L Pulse Oximetry 91 Oxygen Delivery Method Non -Rebreather Oxygen Flow Rate 5 Narrative Exam Narrative: Constitutional-elderly man, oriented to person, place and time. No apparent distress Cardiovascular- tachycardia, minimal peripheral edema Pulmonary-unlabored respiratory effort, no audible wheezing Abdominal-soft, non-tender, non-distended Musculoskeletal-no cyanosis or clubbing Neurological-nonfocal, normal strength throughout, Skin-warm and dry Objective Labs Result Diagrams: 07/22/21 07:58 07/22/21 07:58 Labs: Laboratory Results - last 24 hr 07/20/21 07/21/21 07/21/21 21:09 04:56 04:56 WBC 10.5 RBC 2.28 L Hgb 6.6 L* Hct 20.9 L* MCV 91.9 MCH 29.0 MCHC 31.5 RDW 14.5 Plt Count 181 Neut % (Auto) 85.5 H Lymph % (Auto) 5.3 L [place] % (Auto) 8.2 Eos % (Auto) 0.4 L Baso % (Auto) 0.6 Neut # (Auto) 9000 H Lymph # (Auto) 600 L [place] # (Auto) 900 Eos # (Auto) 0 Baso # (Auto) 100 Sodium 140 Potassium 4.4 Chloride 106 Carbon Dioxide 35 H BUN 23 H Creatinine 0.75 Estimated GFR > 60.0 BUN/Creatinine Ratio 30.7 H Glucose 119 H Calcium 8.2 L Magnesium 1.9 SARS-CoV-2 (PCR) Blood Type O Positive Antibody Screen Negative Crossmatch See Detail 07/21/21 07/21/21 17:32 18:32 WBC RBC Hgb 9.6 L Hct 29.9 L MCV MCH MCHC RDW Plt Count Neut % (Auto) Lymph % (Auto) [place] % (Auto) Eos % (Auto) Baso % (Auto) Neut # (Auto) Lymph # (Auto) [place] # (Auto) Eos # (Auto) Baso # (Auto) Sodium Potassium Chloride Carbon Dioxide BUN Creatinine Estimated GFR BUN/Creatinine Ratio Glucose Calcium Magnesium SARS-CoV-2 (PCR) Negative Blood Type Antibody Screen Crossmatch [facility] Medical History Acquired arteriovenous malformation of stomach Aortic valvular stenosis Atrial fibrillation Atrial flutter, paroxysmal Cholelithiasis Chronic obstructive pulmonary disease Fatigue Gallstone pancreatitis Generalized anxiety disorder History of gastrointestinal hemorrhage History of tobacco abuse Hyperlipidemia Hypertension Memory loss Restrictive lung disease Rheumatoid arthritis Transient cerebral ischemia Surgical History H/O sinus surgery History of aortic valve replacement History of colonoscopy History of esophagogastroduodenoscopy (EGD) History of sinus surgery History of tonsillectomy History of tricuspid valve annuloplasty Status post mitral valve annuloplasty Family History Father Heart disease Hypertension Mother Heart disease Sister Heart disease Cancer Social History household members: none Tobacco & Substance Use Smoking Status: Former smoker Tobacco: How many years used: 60 alcohol intake: former substance use type: does not use Assessment & Plan Assessment and plan (1) Anemia: Status: Acute Assessment & Plan narrative: 85-year-old man numerous cardiopulmonary abnormalities admitted to the hospital for AFib with RVR and anemia. He has guaiac-positive stool, likely upper bleed, history gastric AVM with previous GI bleed. Hemodynamically stable. -Esophagoduodenoscopy today with anesthesia -NPO IVF Technical details of the procedure were discussed with the patient. Operative risks including bleeding, infection, intestinal perforation, missed diagnosis were discussed. His questions have been answered he is in agreement with this plan. Time Spent With Patient Critical Care time: I spent a total of [] minutes of critical care time on this patient's care today; this time is exclusive of procedural time.
[2021-07-21 20:36] LABS: Calcium 8.2 mg/dL (8.4-10.2); HEMOLYSIS < 15 (0-50); Magnesium 1.7 mg/dL (1.6-2.3); Potassium 4.2 mmol/L (3.4-5.1)
[2021-07-21] MEDS: ATORVASTATIN 20 MG TABLET PO (20:48)
[2021-07-21] MEDS: MELATONIN 3 MG TABLET 6 MG PO (20:48)
[2021-07-21] MEDS: PANTOPRAZOLE DR 40 MG TABLET PO (21:05)
--- NOTE | 2021-07-21 21:21 | PM.ICURNDS ---
- :: This patient was seen via real time interactive two-way audiovisual telecommunication. Note: Today patient got 2 u of PRBC and hgb improved appropriately from 6.6 to 9.6. Stool is brown but guaic +. Plan for EGD tomorrow. Patient on 4L n/c earlier today but after diuresis with lasix (800 cc per nursing) O2 requirement now down to 2Lnc. Vitals stable. Hr 70-90s on Amio drip.
--- NOTE | 2021-07-21 23:38 | PC.NURSE ---
2300: Went into room because patient's pulse ox was off, patient was sitting on bedside, covered with blood. Patient self removed L hand IV, nonrebreather, pulse ox, and SCDs. Cleaned patient up, reoriented, moved amio drip to L upper arm IV. Moved patient to room 227 for better visibility, updated coordinator on possible need for sitter.
[2021-07-22] VITALS (31 sets, daily range): BP systolic 90–130; BP diastolic 51–71; PULSE 93–124; RESP 15–29; TEMP 36.9–37.7; O2SAT 89–98; BMI 22.4
[2021-07-22] MEDS: LORazepam 0.5 MG TABLET PO (02:06)
--- NOTE | 2021-07-22 08:06 | DI.RAD.S_ITS ---
PROCEDURE: XR CHEST 1V INDICATIONS: worsening sob TECHNIQUE: One view of the chest was acquired. COMPARISON: , CR, XR CHEST 1V, 07/18/2021, 8:42. , CT, CT ABDOMEN PELVIS W CON, 04/14/2021, 11:35. , CR, XR CHEST 1V, 07/21/2021, 14:48. FINDINGS: Surgical changes and devices: Sternotomy. Lungs and pleura: Bilateral lower lobe infiltrates consistent with pneumonia. Small pleural effusions bilaterally have increased compared to the last exam. No opneumothorax. Mediastinum: Mediastinal contours appear normal. Heart size is mildly increased. Bones and chest wall: No suspicious bony lesions. Overlying soft tissues appear unremarkable. IMPRESSION: 1. Bilateral lower lobe pneumonia. 2. Small pleural effusions bilaterally, increased since the last exam. Dictated by: Emigdio Tang M.D. on 07/22/2021 at 8:35 Approved by: Emigdio Tang M.D. on 07/22/2021 at 8:38
[2021-07-22] MEDS: PANTOPRAZOLE DR 40 MG TABLET PO ×2 (08:07→20:02)
[2021-07-22] MEDS: METOPROLOL ER 50 MG TABLET 200 MG PO (08:07)
[2021-07-22] MEDS: SODIUM CHLORIDE 0.9% FLUSH 10 ML IV ×2 (08:07→20:02)
[2021-07-22] MEDS: dilTIAZem CD 180 MG CAP 360 MG PO (08:07)
[2021-07-22] MEDS: AMIODARONE 200 MG TABLET PO ×2 (08:07→20:02)
[2021-07-22 08:20] LABS: Hematocrit 27.6 % (41-53); Hemoglobin 8.8 g/dL (13.5-17.5); Mean Corpuscular HGB Conc 31.9 % (30-36); Mean Corpuscular Hemoglobin 28.9 PG (26-34); Mean Corpuscular Volume 90.4 fL (80-100); Platelet Count 168 X10^3/uL (150-400); Red Blood Cell Count 3.05 X10^6/uL (4.5-5.9); White Blood Cell Count 12.9 X10^3/uL (4.5-11.0)
[2021-07-22] MEDS: FUROSEMIDE 40 MG/4 ML VIAL IV (08:34)
[2021-07-22 08:38] LABS: Magnesium 1.9 mg/dL (1.6-2.3)
[2021-07-22 08:38] LABS: BUN Creatinine Ratio 25.7 (6-22); Blood Urea Nitrogen 18 mg/dL (9-20); Calcium 8.4 mg/dL (8.4-10.2); Carbon Dioxide 35 mmol/L (22-32); Chloride 99 mmol/L (98-107); Estimated Glomerular Filt Rate > 60.0 mL/min (>60); Glucose 123 mg/dL (80-110); HEMOLYSIS < 15 (0-50); Potassium 4.2 mmol/L (3.4-5.1); Sodium 136 mmol/L (137-145)
--- NOTE | 2021-07-22 10:36 | OT.IPNOTE ---
Per nursing pt having high HR at rest and to hold from OT at this time. Therefore check on the pt later to see if he is appropriate to be seen today.
[2021-07-22] MEDS: PIPERACILLIN/TAZO 3.375 GM in SODIUM CHLORIDE 0.9% 100 ML 25 ML IV ×2 (12:22→19:45)
--- NOTE | 2021-07-22 12:25 | PT.IPTN ---
Current Diagnoses Anemia, unspecified (07/19/21) Unspecified atrial fibrillation (07/19/21) Personal history of other diseases of the digestive system (07/19/21) Surgery Performed Operation Date: 07/22/21 17:00 <No data on this case meets the specified criteria> Physical Therapy Treatment Note M2 PT-IP Current Condition Start: 07/20/21 08:45 Freq: NEEDED Status: Active Protocol: Document 07/20/21 11:15 AW (Rec: 07/20/21 12:53 AW [id number]) Physical Therapy Current Condition Current Condition Evaluation Date 07/20/21 Treatment Diagnosis a fib, RVR, difficulty in walking Onset Date 07/19/21 M3 PT-IP Subjective Start: 07/20/21 08:45 Freq: NEEDED Status: Active Protocol: Document 07/22/21 11:55 SP (Rec: 07/22/21 13:09 SP [id number]) Subjective Physical Therapy Visit Type Type Treatment Note Visit Start Time 11:55 Visit Stop Time 12:25 Total Visit Minutes 30 Notes H&H 8.8/27.6 Vitals taken during tx (BP RUE ): supine: BP 120/59, HR 78, SaO2 93% on 3L nasal canula seated at EOB: 124/ 56 HR 116- 124, 93% on 3L. Stand: 134/65 HR 116 during mobility: 112/76 HR 76- 121 94% on 3L. Number of ACDS BLOCK 1 OPERATOR Visits 1 Physical Therapy Visit Comments Patient Comments Pt willing to work with therapy. Patient Goals Return home at discharge. Therapy Pain Assessment Pain Present Pain Present Denied Pain M4 PT-IP Mobility and Gait Start: 07/20/21 08:45 Freq: NEEDED Status: Active Protocol: Document 07/22/21 11:55 SP (Rec: 07/22/21 13:09 SP [id number]) PT-Bed Mobility Assessment Supine to Sit Supine to Sit Minimal Assistance,1 Person Assistance,Bedrails Scooting Scooting to Edge of Bed Standby Assistance PT-Transfer Assessment Sit to and From Stand Sit to and from Stand Contact Guard Assistance,1 Person Assistance,Use of Upper Extremities Equipment Transfer Assistive Device Gait Belt,Straight Cane Orthotic/Prosthetic Devices or Brace: No Transfers Transfer Destination Chair Transfer Technique ambulated using SPC in RUE Transfer Ability Level of Assist Contact Guard Assistance, Minimal Assistance,1 Person Assistance,Use of Upper Extremities Comments Mobility Comments Pt was elevated supine in bed when arrived. ACDS BLOCK 1 OPERATOR lowered bed flat to assess functional mobility, required Min A for trunk righting while using bed rail supine>sit, SBA scoot to EOB. Able to sit at EOB unsupported. Sit>stand CGA using BUE push from bed and SPC for support in standing. Noted trunk sway at times but self corrections CGA using SPC while monitoring vitals, no LOB. Pt able to walk R EOB> door>bench> front sink >chair using SPC Min A for trunk stability, small ILIR Min RUE WB on SPC 3pt gait patterning, ACDS BLOCK 1 OPERATOR managed O2 tubing, vital monitor cords during gait. Step pivot in front chair, backing up with occasional cues for spacial awareness, good reaching back and slow descent to chair on chair arms CGA- Min A. Pt able to self recline in chair. Pt had call light and all needs in reach. WELLNESS TRAINER provided suger check and swab pts mouth and nurse entered room before left. ACDS BLOCK 1 OPERATOR suggested use of chair alarm for safety fall risk requiring increased supporting around room. Nurse stated will get the alarm. ACDS BLOCK 1 OPERATOR discussed with pt the extra need for support, recommending continue assessment on assist requried, currently will need / at home vs SNF recommendation at this time. Gait Assessment Gait Gait Assistance Required: Minimum Assistance,1 Person Assist Distance (Feet) 40 Able to Maintain Weight Bearing Status Yes During Gait Assistive Devices Assistive Device Gait Belt,Straight Cane Orthotic/Prosthetic Devices or Brace: No Gait Deviations General Gait Pattern Antalgic,Decreased Stride Length,Decreased Feet Clearance,Lateral Trunk Lean, Narrow Based Gait Factors Limiting Gait Function Factors Limiting Gait Function Decreased Activity Tolerance, Decreased Strength,Poor Balance Comments Gait Comments Gait was noticable for moderate L lean, increased WB through SPC this tx requiring Min A due to poor balance and decreased strength and activity tolerance. Tele monitor reported max HR 116- 121 during mobility. Stair Climbing Assessment Comments Stair Climbing Comments Not assessed. No stairs at home. PT-Balance Assessment Sitting Balance and Reactions Static Sitting Balance Ability Good Dynamic Sitting Balance Ability Good Standing Balance and Reactions Static Standing Balance Ability Fair Dynamic Standing Balance Ability Poor Device Used SPC M5 PT-IP Objective Assessments Start: 07/20/21 08:45 Freq: NEEDED Status: Active Protocol: Document 07/20/21 11:15 AW (Rec: 09/20/21 12:53 AW [id number]) Orientation Orientation/Cognition Level of Alertness Confusional State Orientation Name,Month,Place,Situation Language Function Ability Hard of Hearing Safety Awareness Understands Safety Issues Memory Description Short Term Impaired Comments Pt incorrectly reports he has had no falls but his daughter reminds him that 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 Gross Range of Motion Lower Extremity ROM Assessment Within Functional Limits Strength Lower Extremity Strength Assessment Within Functional Limits Hip 4+/5 Knee 5/5 Ankle 5/5 Coordination Assessment Gross Coordination Gross Coordination WNL Assessment Finger to Nose Test Normal Performance Foot Tapping Test Normal Performance Sensation Assessment Sensation Gross Sensation WNL Muscle Tone Muscle Tone WNL Yes M6 PT-IP Treatment Start: 07/20/21 08:45 Freq: NEEDED Status: Active Protocol: Document 07/22/21 11:55 SP (Rec: 07/22/21 13:09 SP [id number]) Physical Therapy Treatment Education Education Provided Safety M7 PT-IP Assessment and Plan Start: 07/20/21 08:45 Freq: NEEDED Status: Active Protocol: Document 07/22/21 11:55 SP (Rec: 07/22/21 13:09 SP [id number]) PT Summary Assessment and Plan Potential Rehabilitation Potential Good Status of Condition at Evaluation Evolving Summary Impairments Balance,Gait Assessment Summary Pt demonstrated decreased strength and activitiy tolerance during tx. Pt required increased support Min A for supine>sit w/ HOB flat, CGA sit<>stand, Min A during transfer and gait in room using SPC with increased RUE WB on SPC this tx. Pt reports feeling very weak today. ACDS BLOCK 1 OPERATOR recommending 24/7 assist available at home vs SNF at [place] . Will continue to assess progress. Goals Bed Mobility Goal Independent Transfer Goal Independent Gait Goal Independent,Cane Gait Distance 200 Frequency of Treatment Frequency Of Treatment Once a Day Treatment Plan Physical Therapy Treatment Plan Gait Training,Therapeutic Exercise,Balance Retraining, Discharge Planning, Neuromuscular Re-ed Other Recommendations and Next Treatment Bed mob HOB flat, Transfers Focus using AD, increase gait distance with SPC; use portable tele if indicated Precautions Other Precautions falls Recommendations To Nursing Amount of Assist Needed 1 Person Assist Discharge Recommendations PT Discharge Recommendations Home with 24/7 Assist Available,SNF Rehab,Home vs SNF Other Discharge Recommendations FWW if unsafe with SPC Equipment Needed for Home Before FWW if unsafe with SPC Discharge Transportation Needs at Discharge Private Vehicle
--- NOTE | 2021-07-22 12:48 | P.PN_ITS ---
Subjective Subjective Date Patient Seen: 07/22/21 Time Patient Seen: 08:00 Interval history: Today he feels weak. Yesterday he was started on amiodarone infusion, this morning he remains tachycardic in the 130s, his morning medications are scheduled for now. He is down to 3L of oxygen. Chest xray shows pleural effusions and possible pneumonia. Hemoglobin improved after transfusion. He is NPO for scope today. Exam Vital Signs (past 8 hours): - 07/22/21 08:00 07/22/21 10:32 07/22/21 11:14 Temperature 98.4 F Pulse Rate 124 H Respiratory Rate 19 Blood Pressure 109/59 L Pulse Oximetry 93 92 92 07/22/21 12:00 Temperature 99.1 F Pulse Rate 119 H Respiratory Rate 17 Blood Pressure 122/59 L Pulse Oximetry 93 Oxygen Delivery Method Nasal Cannula Oxygen Flow Rate 3 Narrative Exam Narrative: GENERAL APPEARANCE: somewhat frail, elderly male in no acute d istress. SKIN:scattered upper extremity bruising, no other notable lesions. LUNGS: crackles and decreased breath sounds bilaterally CARDIOVASCULAR: tachycardic, irregular rhythm. no m/r/g. ABDOMEN: soft, nontender, nondistended, no organomegaly MUSCULOSKELETAL: There was no tenderness or effusions noted. Muscle strength and tone were normal. EXTREMITIES: No cyanosis, clubbing or edema. NEUROLOGIC: Alert and oriented to name and place. Normal affect.? Cognitive impairment evident.? Objective Labs Result Diagrams: 07/22/21 07:58 07/22/21 07:58 Labs: Laboratory Results - last 24 hr 07/20/21 07/21/21 07/21/21 21:09 17:32 18:32 WBC RBC Hgb 9.6 L Hct 29.9 L MCV MCH MCHC RDW Plt Count Sodium Potassium Chloride Carbon Dioxide BUN Creatinine Estimated GFR BUN/Creatinine Ratio Glucose Calcium Magnesium SARS-CoV-2 (PCR) Negative Crossmatch See Detail 07/21/21 07/22/21 07/22/21 20:20 07:50 07:58 WBC 12.9 H RBC 3.05 L Hgb 8.8 L Hct 27.6 L MCV 90.4 MCH 28.9 MCHC 31.9 RDW 15.0 H Plt Count 168 Sodium Potassium 4.2 Chloride Carbon Dioxide BUN Creatinine Estimated GFR BUN/Creatinine Ratio Glucose Calcium 8.2 L Magnesium 1.7 1.9 SARS-CoV-2 (PCR) Crossmatch 07/22/21 07:58 WBC RBC Hgb Hct MCV MCH MCHC RDW Plt Count Sodium 136 L Potassium 4.2 Chloride 99 Carbon Dioxide 35 H BUN 18 Creatinine 0.70 Estimated GFR > 60.0 BUN/Creatinine Ratio 25.7 H Glucose 123 H Calcium 8.4 Magnesium SARS-CoV-2 (PCR) Crossmatch [facility] Medical History Acquired arteriovenous malformation of stomach Aortic valvular stenosis Atrial fibrillation Atrial flutter, paroxysmal Cholelithiasis Chronic obstructive pulmonary disease Fatigue Gallstone pancreatitis Generalized anxiety disorder History of gastrointestinal hemorrhage History of tobacco abuse Hyperlipidemia Hypertension Memory loss Restrictive lung disease Rheumatoid arthritis Transient cerebral ischemia Surgical History H/O sinus surgery History of aortic valve replacement History of colonoscopy History of esophagogastroduodenoscopy (EGD) History of sinus surgery History of tonsillectomy History of tricuspid valve annuloplasty Status post mitral valve annuloplasty Family History Father Heart disease Hypertension Mother Heart disease Sister Heart disease Cancer Social History household members: none Smoking Status: Former smoker Tobacco: How many years used: 60 alcohol intake: former substance use type: does not use Assessment & Plan Assessment & Plan narrative: 1. Chronic atrial flutter/Atrial fibrillation with rapid ventricular response. -Patient with rapid AFib, suspect medication non-adherence possibly due to cognitive impairment -restarted home medications, appears slightly dehydrated and worsened anemia likely contributing. -continue home dilt and metoprolol. discussed with cardiology, recommended amiodarone loading given soft BPs. -control issues may be related to new anemia. -TSH 1.37 2. acute on chronic anemia, normocytic. ?- guaiac positive on rectal today. Had normal appearing stool according to nursing reports. rectal exam today with very dark material. ?- Hg to 6.6 this AM, given 2 U PRBC. - has a history of AVM for which he is not on AC. Changed to IV PPI BID instead of PO. Decrease to clears today. - surgery consult for endoscopy. Patient and daughter agreeable. 3. acute respiratory failure secondary to pneumonia right sided diastolic CHF -started zosyn for pneumonia -sputum cultures ordered -ordered for lasix given decreased RV function, and pleural effusions -wean oxygen as able 4.? Essential hypertension, chronic, stable, not present on admission - continue rate control agents at this time, hold lisinopril and other medications. Blood pressures currently low-normal. 5.. Hyperlipidemia, chronic, stable, not present on admit -Will continue patient's home regimen of atorvastatin 20 mg daily. 6.? COPD with restrictive lung disease, chronic, stable, not present on image - continue home medications, albuterol standing and prn. 7. chronic cognitive impairment. ?- previous SLUMS 07/30. OT plans to repeat today as he appears much better than that currently. Code: DNR, surrogate he states is his daughter. Dispo: plan for discharge home when medically stable, with home health. continue PT / OT when bleeding improves. timing unclear at this time. DVT: hold lovenox given h/h drop. Time Spent With Patient Critical Care time: I spent a total of [] minutes of critical care time on this patient's care today; this time is exclusive of procedural time. Quality VTE Deep Vein Thrombosis/Pulmonary Embolism Present on Admission: No
--- NOTE | 2021-07-22 13:48 | OT.IP.TRT ---
Current Diagnoses Anemia, unspecified (07/19/21) Unspecified atrial fibrillation (07/19/21) Personal history of other diseases of the digestive system (07/19/21) Surgery Performed Operation Date: 07/22/21 17:00 <No data on this case meets the specified criteria> Occupational Therapy Treatment Note M2 OT-IP Current Condition Start: 07/20/21 11:30 Freq: Status: Active Protocol: Document 07/20/21 11:30 CGR (Rec: 07/20/21 11:40 CGR [id number]) Occupational Therapy Current Condition Current Condition Evaluation Date 07/20/21 Treatment Diagnosis Afib with RVR Diagnosis Onset Date 07/19/21 M3 OT- IP Subjective and Pain Start: 07/20/21 11:30 Freq: Status: Active Protocol: Document 07/22/21 13:53 CCC (Rec: 07/22/21 14:03 [facility] [id number]) OT- Subjective Occupational Therapy Visit Type Type Treatment Note Visit Start Time 13:15 Visit Stop Time 13:38 Total Visit Minutes 23 Occupational Therapy Visit Comments Patient Comments Pt wanting to get up to rinse his mouth. Patient/Caregiver Goals To go home. M4 OT- IP ADL's Start: 07/20/21 11:30 Freq: Status: Active Protocol: Document 07/22/21 13:53 CCC (Rec: 07/22/21 14:03 [facility] [id number]) OT ADL-Grooming General Evaluation Grooming Ability Standby Assistance Areas Needing Assistance Retrieving/Set-up of Grooming Items Comments OT Grooming Comments Pt needing assist to manage all the cords but otherwise able to do grooming needs on his own. OT ADL-Oral Care General Eval Oral Care Ability Independent OT ADL-Dressing Comments OT Dressing Comments Not performed. OT ADL-Toileting General Evaluation Toileting Ability Standby Assistance Comments OT Toileting Comments Pt able to stand to use the urinal. OT ADL-Bathing Comments OT Bathing Comments Not performed M5 OT- IP IADL's Start: 07/20/21 11:30 Freq: Status: Active Protocol: Document 07/20/21 11:30 CGR (Rec: 07/20/21 11:40 CGR [id number]) OT-Instrumental Activities of Daily Living Deficits IADL Deficits Identified No Deficits Home Safety Awareness Awareness of Need for Assistance at Home Good Awareness Ability to Problem Solve Emergency Able to Problem Solve Situations Medication Management Medication Management No Deficits Identified Money Management Money Management No Deficits Identified Meal Preparation Meal Preparation No Deficits Identified 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 M6 OT- IP Functional Cognition Start: 07/20/21 11:30 Freq: Status: Active Protocol: Document 07/22/21 13:53 [facility] (Rec: 07/22/21 14:03 [facility] [id number]) Cognitive Factors Limiting Selfcare Function Cognitive Comments Cognitive Assessment Comments Pt main deficit is decreased short term memory. M7 OT- IP Mobility and Balance Start: 07/20/21 11:30 Freq: Status: Active Protocol: Document 07/22/21 13:53 [facility] (Rec: 07/22/21 14:03 [facility] [id number]) OT-Transfer Assessment Sit to and From Stand Sit to and from Stand Contact Guard Assistance Transfers Transfer Ability Contact Guard Assistance Technique Transfer Destination Chair Transfer Technique Stand Step Pivot Devices Transfer Assistive Devices Gait Belt,Straight Cane Comments Mobility Comments Pt a little unsteady of his feet today and needing assist for balance. Pt now has new diagnosis of bilateral PNA. M8 OT- IP Objective Assessments Start: 07/20/21 11:30 Freq: Status: Active Protocol: Document 07/20/21 11:30 CGR (Rec: 07/20/21 11:40 CGR [id number]) OT Gross Range of Motion Upper Extremity Range of Motion Assessment Within Functional Limits OT Strength Upper Extremity Strength Assessment Within Functional Limits Comments Strength Comments 5-/5 OT- Coordination Assessment Upper Extremity Finger to Nose Test Within Functional Limits Finger Tapping Test Within Functional Limits OT-Muscle Tone Assessment Muscle Tone WNL Yes OT Sensation Assessment Edema Edema Absent M9 OT- IP Assessment and Plan Start: 07/20/21 11:30 Freq: Status: Active Protocol: Document 07/22/21 13:53 [facility] (Rec: 07/22/21 14:03 [facility] [id number]) OT Summary Assessment and Plan Potential Rehabilitation Potential Good Analytic Complexity at Evaluation Low Summary OT Impairments Balance,Functional Cognition, Functional Mobility,Dressing, Toileting,Bathing,Activity Tolerance Progress Towards Goals Slow Progress due to Medical Issues,Slow Progress due to Activity Tolerance,Slow Progress due to Cognition Assessment Summary Pt now has diagnosis of bilateral PNA and noted O2 drops on 2L when up on his feet to 84% and had to ask nursing if it was okay to bump him up to 4L. At rest on 4L pt at 94%. Due to pt's decreased activity tolerance, balance, and need for O2, suggest best for pt to go to skilled rehab before going home. Goals Grooming Goal Independent Dressing Goal Independent Toileting Goal Independent Bathing Goal Independent Toilet Transfer Goal Independent Shower Transfer Goal Independent Days to Meet Goals 15 Frequency of Treatment Frequency Of Treatment Once a Day Treatment Plan OT Treatment Plan ADL Training,Functional Cognition Training,Functional Mobility,Patient/Family Education,Discharge Planning Other Treatment Recommendations and Next GO over memory strategies with Treatment Focus pt. Discharge Recommendations OT Discharge Recommendations SNF Rehab Transportation Needs at Discharge Private Vehicle/
[2021-07-22] MEDS: ALBUTEROL/IPRATROPIUM 3 ML AMPUL INH ×2 (15:11→20:13)
--- NOTE | 2021-07-22 15:54 | CM.DPC ---
DCP Cont: Per MD, pt to have EGD scope today due to ongoing guaic in stool and still having heart rate issues and desats. Not medically stable to d/c yet today. Per Surgeon, pt to have scope this evening. Per PT/OT, pt made some improvements this afternoon with more stable vitals and still recommending d/c home with assist and HH. SW updated [facility] that pt still admitted and likely not stable for the next day or two. Plan: SW to follow after EGD today and confirm safe plan of home with Dtr assist and new [facility] referral and to fax completed MD Monika orders, and d/c summ to [facility] at discharge. DORON Bacon
--- NOTE | 2021-07-22 16:48 | PC.NURSE ---
Addendum entered by Hallie Agee R.N. 07/22/21 18:33: 1820 Report received from PACU, Bertha states pt doing well, VSS, small bleeding ulcer located and clamped. Pt to return to room. 1832 Pt returned from PACU, VSS, Alert and oriented to self, denies pain, will continue to monitor. Original Note: Evening shift note: 1647 pt taken via bed to OR for EGD, no further pt contact at this time.
--- NOTE | 2021-07-22 17:11 | PM.PREOP ---
Pre-operative Note Interval Note History & Physical reviewed/Exam performed by Physician: Yes Changes to H&P: No
--- NOTE | 2021-07-22 17:57 | PM.OP.ENDO ---
Operative Date/Time/Diagnoses Date of procedure: 07/22/21 Time of procedure: 17:57 Pre-op diagnosis: GI BLEED Post-op diagnosis: same Procedure & Clinicians Study performed: ESOPHAGODUODENOSCOPY Same procedure as scheduled: Yes Indications: Anemia guaiac-positive, hemodynamically stable Surgeon: Michael Melgoza Procedure Notes Procedure in detail: Time out was performed. Procedural sedation was administered by Anesthesia. A bite block was placed. the scope was inserted into the mouth and advanced through the esophagus and into the stomach. The stomach was notable for for recent hemorrhage. The pylorus was intubated and the duodenum was normal to the 2nd portion. Within the stomach along the lesser curvature midbody there was a gastric ulcer that was actively bleeding. Close inspection demonstrated no visible vessel or clot , it was actively bleeding. The ulcer was approximately 5 mm in diameter. Hemo clip was applied across the ulcer and this was successful in stopping the hemorrhage. Scope was withdrawn into the esophagus the Z line was seen at 40 cm from the incisions. There was no Willson's esophagitis or masses or strictures. Stomach was desufflated and scope removed. Patient tolerated procedure well. Specimen(s): none sent Complications: none Impression: Gastric ulcer Post-procedure Plan for aftercare: Return to ICU for further monitoring. Continue Protonix. Disposition: ICU
[2021-07-22] MEDS: METOPROLOL ER 50 MG TABLET 100 MG PO (18:39)
[2021-07-22] MEDS: ATORVASTATIN 20 MG TABLET PO (20:01)
[2021-07-22] MEDS: MELATONIN 3 MG TABLET 6 MG PO (20:02)
[2021-07-22] MEDS: QUETIAPINE 25 MG TABLET 50 MG PO (20:02)
[2021-07-22 21:28] LABS: Hematocrit 24.5 % (41-53)
--- NOTE | 2021-07-22 21:30 | PM.ICURNDS ---
- :: This patient was seen via real time interactive two-way audiovisual telecommunication. Note: EGD today showed bleeding gastric ulcer which was clipped and hemostasis achieved. Hgb went from 8.8 to 8.0 today. Vitals are stable. Patient switched from Amio drip to AMio 200 mg PO BID. HR 90-110s.
[2021-07-23] VITALS (42 sets, daily range): BP systolic 94–139; BP diastolic 51–79; PULSE 71–142; RESP 16–23; TEMP 36.8–37.4; O2SAT 83–99
[2021-07-23] MEDS: PIPERACILLIN/TAZO 3.375 GM in SODIUM CHLORIDE 0.9% 100 ML 25 ML IV ×3 (01:47→18:22)
[2021-07-23 04:38] LABS: Hematocrit 24.5 % (41-53); Mean Corpuscular HGB Conc 32.5 % (30-36); Mean Corpuscular Hemoglobin 29.4 PG (26-34); Mean Corpuscular Volume 90.4 fL (80-100); Platelet Count 165 X10^3/uL (150-400); Red Blood Cell Count 2.71 X10^6/uL (4.5-5.9); Red Cell Distribution Width 15.3 % (11.6-14.8); White Blood Cell Count 10.6 X10^3/uL (4.5-11.0)
[2021-07-23 04:48] LABS: BUN Creatinine Ratio 23.2 (6-22); Blood Urea Nitrogen 22 mg/dL (9-20); Calcium 8.4 mg/dL (8.4-10.2); Carbon Dioxide 39 mmol/L (22-32); Chloride 95 mmol/L (98-107); Estimated Glomerular Filt Rate > 60.0 mL/min (>60); Glucose 110 mg/dL (80-110); HEMOLYSIS < 15 (0-50); Potassium 4.4 mmol/L (3.4-5.1); Sodium 134 mmol/L (137-145)
[2021-07-23] MEDS: METOPROLOL ER 50 MG TABLET 200 MG PO (08:04)
[2021-07-23] MEDS: dilTIAZem CD 180 MG CAP 360 MG PO (08:04)
[2021-07-23] MEDS: AMIODARONE 200 MG TABLET PO (08:05)
[2021-07-23] MEDS: SODIUM CHLORIDE 0.9% FLUSH 10 ML IV ×2 (08:05→21:33)
[2021-07-23] MEDS: FERROUS SULFATE 325 MG TABLET PO (08:05)
[2021-07-23] MEDS: PANTOPRAZOLE DR 40 MG TABLET PO ×2 (08:05→20:29)
--- NOTE | 2021-07-23 09:30 | PT.IPTN ---
Current Diagnoses Anemia, unspecified (07/19/21) Unspecified atrial fibrillation (07/19/21) Personal history of other diseases of the digestive system (07/19/21) Surgery Performed Operation Date: 07/22/21 17:00 Actual Procedures p Esophagogastroduodenoscopy(Not Applicable) - Michael Melgoza MD Physical Therapy Treatment Note M2 PT-IP Current Condition Start: 07/20/21 08:45 Freq: NEEDED Status: Active Protocol: Document 07/20/21 11:15 AW (Rec: 07/20/21 12:53 AW [id number]) Physical Therapy Current Condition Current Condition Evaluation Date 07/20/21 Treatment Diagnosis a fib, RVR, difficulty in walking Onset Date 07/19/21 M3 PT-IP Subjective Start: 07/20/21 08:45 Freq: NEEDED Status: Active Protocol: Document 07/23/21 09:16 SP (Rec: 07/23/21 09:44 SP [id number]) Subjective Physical Therapy Visit Type Type Treatment Note Visit Start Time 09:16 Visit Stop Time 09:30 Total Visit Minutes 14 Notes H&H continues same 8.0/24.5. Vitals taken during tx: seated in chair at rest: BP ( RUE) 96/55 HR 139bpm SaO2 97% on 2L. standing w/ SPC: BP 95/53 HR 141-145bpm Number of VP BUSINESS DEVELOPMENT Visits 2 Physical Therapy Visit Comments Patient Comments Pt willing to work with therapy. I feel weak sitting so much and want to get up and move around. Patient Goals Return home at discharge. Therapy Pain Assessment Pain Present Pain Present Denied Pain M4 PT-IP Mobility and Gait Start: 07/20/21 08:45 Freq: NEEDED Status: Active Protocol: Document 07/23/21 09:16 SP (Rec: 07/23/21 09:44 SP [id number]) PT-Transfer Assessment Sit to and From Stand Sit to and from Stand Contact Guard Assistance,Use of Upper Extremities Equipment Transfer Assistive Device Gait Belt,Straight Cane Orthotic/Prosthetic Devices or Brace: No Transfers Transfer Destination Chair Transfer Technique standing only front chair using SPC Comments Mobility Comments Pt reclined in chair when arrived agreeable to working with therapy. Assessed vitals throughout tx. CGA scoot to front chair and sit<>stand use of BUEs on chair arm while using SPC. Once in standing CGA with noted trunk sway with self recovering. Pt's HR elevated from 139- 145 once in standing, discussed with nurse when arrived at door and agreed pt return to chair for safety HR tachycardia noted. Stand>sit CGA with good hand placement and slow descent. Pt reports weakness and can feels his heart rate little faster once returned to sitting. [employer]ELOP[employer] discussed recommending would benefit further skilled therapy to improve strength and functional mobility at SNF vs requiring 23/05 and unsure if family can be there with him all the time. Pt stated maybe that would be a good idea, my daughter can't be there with me all the time. Pt had call light and all needs in reach with chair alarm donned before left. VP [employer]ELOPMENT discussed with care mgt recommending SNF vs home 23/05 and pt in agreement might be helpful. Will continue to assess progress. Gait Assessment Comments Gait Comments Unable to progress gait due to elevated HR 141- 145bpm. PT-Balance Assessment Sitting Balance and Reactions Static Sitting Balance Ability Normal Dynamic Sitting Balance Ability Good Standing Balance and Reactions Static Standing Balance Ability Good Dynamic Standing Balance Ability Fair Device Used SPC M5 PT-IP Objective Assessments Start: 07/20/21 08:45 Freq: NEEDED Status: Active Protocol: Document 07/20/21 11:15 AW (Rec: 07/20/21 12:53 AW [id number]) Orientation Orientation/Cognition Level of Alertness Confusional State Orientation Name,Month,Place,Situation Language Function Ability Hard of Hearing Safety Awareness Understands Safety Issues Memory Description Short Term Impaired Comments Pt incorrectly reports he has had no falls but his daughter reminds him that 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 Gross Range of Motion Lower Extremity ROM Assessment Within Functional Limits Strength Lower Extremity Strength Assessment Within Functional Limits Hip 4+/5 Knee 5/5 Ankle 5/5 Coordination Assessment Gross Coordination Gross Coordination WNL Assessment Finger to Nose Test Normal Performance Foot Tapping Test Normal Performance Sensation Assessment Sensation Gross Sensation WNL Muscle Tone Muscle Tone WNL Yes M6 PT-IP Treatment Start: 07/20/21 08:45 Freq: NEEDED Status: Active Protocol: Document 07/23/21 09:16 SP (Rec: 07/23/21 09:44 SP [id number]) Physical Therapy Treatment Education Education Provided Safety M7 PT-IP Assessment and Plan Start: 07/20/21 08:45 Freq: NEEDED Status: Active Protocol: Document 07/23/21 09:16 SP (Rec: 07/23/21 09:44 SP [id number]) PT Summary Assessment and Plan Potential Rehabilitation Potential Good Status of Condition at Evaluation Evolving Summary Impairments Balance,Gait,Activity Tolerance Progress Towards Goals Slow Progress due to Medical Issues,Slow Progress due to Activity Tolerance Assessment Summary Pt requiring CGA for sit<> stand using SPC and assessment of vitals for safety mobilizing elevated HR 141-145 bpm. Pt would beneift from continued strengthening for functional mobility before returning home vs Home 23/05 assist available but pt states doesn't think family can stay with him all day. Goals Bed Mobility Goal Independent Transfer Goal Independent Gait Goal Independent,Cane Gait Distance 200 Frequency of Treatment Frequency Of Treatment Once a Day Treatment Plan Physical Therapy Treatment Plan Gait Training,Therapeutic Exercise,Balance Retraining, Discharge Planning, Neuromuscular Re-ed Other Recommendations and Next Treatment Assess vitals, transfers, Focus balance, gait if safe using SPC further distance. Precautions Other Precautions falls Recommendations To Nursing Amount of Assist Needed 1 Person Assist Discharge Recommendations PT Discharge Recommendations Home with Assistance,Home with / Assist Available Other Discharge Recommendations FWW if unsafe with SPC Equipment Needed for Home Before FWW if unsafe with SPC Discharge Transportation Needs at Discharge Private Vehicle
--- NOTE | 2021-07-23 11:08 | OT.IP.TRT ---
Current Diagnoses Anemia, unspecified (07/19/21) Unspecified atrial fibrillation (07/19/21) Personal history of other diseases of the digestive system (07/19/21) Surgery Performed Operation Date: 07/22/21 17:00 Actual Procedures p Esophagogastroduodenoscopy(Not Applicable) - Michael Melgoza MD Occupational Therapy Treatment Note M2 OT-IP Current Condition Start: 07/20/21 11:30 Freq: Status: Active Protocol: Document 07/20/21 11:30 CGR (Rec: 07/20/21 11:40 CGR [id number]) Occupational Therapy Current Condition Current Condition Evaluation Date 07/20/21 Treatment Diagnosis Afib with RVR Diagnosis Onset Date 07/19/21 M3 OT- IP Subjective and Pain Start: 07/20/21 11:30 Freq: Status: Active Protocol: Document 07/23/21 11:01 [facility] (Rec: 07/23/21 11:08 [facility] [id number]) OT- Subjective Occupational Therapy Visit Type Type Treatment Note Visit Start Time 10:45 Visit Stop Time 10:57 Total Visit Minutes 12 Occupational Therapy Visit Comments Patient Comments Pt just completed showering with nursing aid. Patient/Caregiver Goals Pt now agrees that it would be best for him to go to skilled rehab before going home. OT Pain Assessment Pain When Pain Assessed At Rest Pain Present Pain Present Denied Pain M6 OT- IP Functional Cognition Start: 07/20/21 11:30 Freq: Status: Active Protocol: Document 07/23/21 11:01 [facility] (Rec: 07/23/21 11:08 [facility] [id number]) Cognitive Factors Limiting Selfcare Function Cognitive Comments Cognitive Assessment Comments Able to go over strategies to assist for his short term memory deficits. Pt abl to problem solve well if able to retain information given. M9 OT- IP Assessment and Plan Start: 07/20/21 11:30 Freq: Status: Active Protocol: Document 07/23/21 11:01 [facility] (Rec: 07/23/21 11:08 [facility] [id number]) OT Summary Assessment and Plan Potential Rehabilitation Potential Good Analytic Complexity at Evaluation Low Summary OT Impairments Balance,Functional Cognition, Functional Mobility,Dressing, Toileting,Bathing,Activity Tolerance Progress Towards Goals Slow Progress due to Activity Tolerance,Slow Progress due to Cognition Assessment Summary Pt's HR in 140's therefore nursing states to hold from moving pt but okay to talk to the pt. Pt now agrees that he would benefit from going to skilled rehab prior to going home especially due to his new diagnosis of bilateral PNA and now needing ESTRADA for needs . Goals Grooming Goal Independent Dressing Goal Independent Toileting Goal Independent Bathing Goal Independent Toilet Transfer Goal Independent Shower Transfer Goal Independent Days to Meet Goals 14 Frequency of Treatment Frequency Of Treatment Once a Day Treatment Plan OT Treatment Plan ADL Training,Functional Cognition Training,Functional Mobility,Patient/Family Education,Discharge Planning Discharge Recommendations OT Discharge Recommendations SNF Rehab Transportation Needs at Discharge Private Vehicle,Wheelchair/ Cabulance
--- NOTE | 2021-07-23 11:34 | CM.DPNOTE ---
DCP Note Therapy team recommending SNF upon DC and patient agreeable. Patient requests trying all options locally and so have requested Julia, DANILO, fax referrals to [facility] and [facility]. Patient's payer is [employer]. Following closely for coordination of safest plan available to patient. JW
--- NOTE | 2021-07-23 12:03 | CM.DPNOTE ---
Emailed referral packet to [facility]; and faxed [facility]; called Margie at to review patient information. Confirmations received. Julia Cui CM Asst.
--- NOTE | 2021-07-23 13:13 | PC.NURSE ---
Addendum entered by Henry Stanford R.N. 07/23/21 14:44: Pt reports increasing shortness of breath. Tele shows Afib 100-120s, which is about where he has been all day without c/o shortness of breath. Still requiring O2 at 2LPM via NC with SPO2 92%. RR 30s. Lungs are diminished bilaterally without wheezing or crackles. Pt is denying pain or discomfort anywhere. He states she just feels like he can't catch his breath. Instructed pt in deep breathing techniques which he was able to perform but did not improve his breathing. Discussed findings with hospitalist. Orders received for CTA chest. Original Note: Post AM med administration, pt's HR slowly (over ~3 hours) trended down to 100-110s at rest. With any activity, HR increases to 130s-140s. Pt denies any symptoms such as chest pain/pressure, palpitations, dizziness/lightheadedness, vision changes. Reviewed findings with hospitalist who instructs to continue to monitor.
--- NOTE | 2021-07-23 14:29 | PM.PN.1 ---
Subjective Subjective Date Patient Seen: 07/23/21 Time Patient Seen: 08:00 Interval history: Today he states he feels short of breath and weak. He is off oxygen this morning. He does not have a cough. No further bloody stools. He did go for EGD yesterday and had a bleeding ulcer clipped. His heart rate varies, but is consistently 130s-140s in the morning and improves to 100s after taking his medication. Exam Vital Signs (past 8 hours): - 07/23/21 08:00 07/23/21 12:00 Temperature 99.3 F 98.5 F Pulse Rate 114 H 117 H Respiratory Rate 17 17 Blood Pressure 115/57 L 94/51 L Pulse Oximetry 98 96 Oxygen Delivery Method High Flow Nasal Cannula Oxygen Flow Rate 2 Narrative Exam Narrative: GENERAL APPEARANCE: somewhat frail, elderly male in no acute distress. SKIN:scattered upper extremity bruising, no other notable lesions. LUNGS: coarse breath sound bilaterally CARDIOVASCULAR: tachycardic, irregular rhythm. no m/r/g. ABDOMEN: soft, nontender, nondistended, no organomegaly MUSCULOSKELETAL: There was no tenderness or effusions noted. Muscle strength and tone were normal. EXTREMITIES: No cyanosis, clubbing or edema. NEUROLOGIC: Alert and oriented to name and place. Normal affect.? Cognitive impairment evident.? Objective Labs Result Diagrams: 07/23/21 04:04 07/23/21 04:04 Labs: Laboratory Results - last 24 hr 07/22/21 07/23/21 07/23/21 21:17 04:04 04:04 WBC 10.6 RBC 2.71 L Hgb 8.0 L 8.0 L Hct 24.5 L 24.5 L MCV 90.4 MCH 29.4 MCHC 32.5 RDW 15.3 H Plt Count 165 Sodium 134 L Potassium 4.4 Chloride 95 L Carbon Dioxide 39 H BUN 22 H Creatinine 0.95 Estimated GFR > 60.0 BUN/Creatinine Ratio 23.2 H Glucose 110 Calcium 8.4 PFSH Medical History Acquired arteriovenous malformation of stomach Aortic valvular stenosis Atrial fibrillation Atrial flutter, paroxysmal Cholelithiasis Chronic obstructive pulmonary disease Fatigue Gallstone pancreatitis Generalized anxiety disorder History of gastrointestinal hemorrhage History of tobacco abuse Hyperlipidemia Hypertension Memory loss Restrictive lung disease Rheumatoid arthritis Transient cerebral ischemia Surgical History H/O sinus surgery History of aortic valve replacement History of colonoscopy History of esophagogastroduodenoscopy (EGD) History of sinus surgery History of tonsillectomy History of tricuspid valve annuloplasty Status post mitral valve annuloplasty Family History Father Heart disease Hypertension Mother Heart disease Sister Heart disease Cancer Social History household members: none Smoking Status: Former smoker Tobacco: How many years used: 60 alcohol intake: former substance use type: does not use Assessment & Plan Assessment & Plan narrative: 1. Chronic atrial flutter/Atrial fibrillation with rapid ventricular response. -Patient with rapid AFib, suspect medication non-adherence possibly due to cognitive impairment -restarted home medications, appears slightly dehydrated and worsened anemia likely contributing. -continue home dilt and metoprolol. discussed with cardiology, recommended amiodarone loading given soft BPs. -control issues may be related to new anemia. -TSH 1.37 2. acute on chronic anemia, normocytic. - guaiac positive on rectal today. Had normal appearing stool according to nursing reports. rectal exam today with very dark material. - Hg to 6.6, given 2 U PRBC, now improved over 8 - has a history of AVM for which he is not on AC. Changed to IV PPI BID instead of PO. - surgery consult for endoscopy. found to have bleeding ulcer which was clipped 3. acute respiratory failure secondary to pneumonia right sided diastolic CHF -started zosyn for pneumonia -sputum cultures ordered -ordered for lasix given decreased RV function, and pleural effusions -wean oxygen as able -EF preserved 60-65% 4.? Essential hypertension, chronic, stable, not present on admission - continue rate control agents at this time, hold lisinopril and other medications. Blood pressures currently low-normal. 5.. Hyperlipidemia, chronic, stable, not present on admit -Will continue patient's home regimen of atorvastatin 20 mg daily. 6.? COPD with restrictive lung disease, chronic, stable, not present on image - continue home medications, albuterol standing and prn. 7. chronic cognitive impairment. ?- previous SLUMS 07/30. OT plans to repeat today as he appears much better than that currently. Code: DNR, surrogate he states is his daughter. Dispo: plan for discharge home when medically stable, with home health. continue PT / OT when bleeding improves. timing unclear at this time. DVT: hold lovenox given h/h drop. Time Spent With Patient Critical Care time: I spent a total of [] minutes of critical care time on this patient's care today; this time is exclusive of procedural time. Quality VTE Deep Vein Thrombosis/Pulmonary Embolism Present on Admission: No
--- NOTE | 2021-07-23 14:34 | DI.CT.S_ITS ---
PROCEDURE: CT ANGIO CHEST PE PROTOCOL INDICATIONS: sob, tachycardia TECHNIQUE: After the administration of intravenous contrast, 2 mm thick sections acquired from the pulmonary apices to the posterior costophrenic angles. 3-dimensional maximum intensity projection (MIP) coronal and sagittal reformats were then acquired through the thorax. For radiation dose reduction, the following was used: automated exposure control, adjustment of mA and/or kV according to patient size. COMPARISON: [facility], CR, XR CHEST 1V, 07/22/2021, 8:09. FINDINGS: Image quality: Excellent. Pulmonary arteries: Pulmonary arteries are normal in size, and demonstrate no intraluminal filling defects to suggest central pulmonary embolism. Lungs and pleura: Bilateral pleural effusions with superimposed areas of opacity are present. Effusions have a somewhat loculated appearance. Mediastinum: Heart size is enlarged, without pericardial effusion. No mediastinal or hilar adenopathy. Thoracic aorta is normal in caliber and enhancement. Esophagus is normal in caliber, without hiatal hernia. Bones and chest wall: No suspicious bony lesions. Ribs and thoracic spine appear intact throughout. Thyroid gland is unremarkable. No axillary or supraclavicular adenopathy. Abdomen: Visualized upper abdominal solid organs appear normal in the early arterial phase of enhancement. IMPRESSION: 1. No pulmonary embolism. 2. Mild bilateral pleural effusions appearing somewhat loculated with areas of superimposed opacity. The latter can represent atelectasis and/or developing pneumonia. Recommend interval follow-up to document resolution exclude presence of underlying mass lesion. Dictated by: Dianne Lozano M.D. on 07/23/2021 at 15:52 Approved by: Dianne Lozano M.D. on 07/23/2021 at 15:53
[2021-07-23] MEDS: METOPROLOL ER 50 MG TABLET 100 MG PO (16:23)
[2021-07-23] MEDS: DOCUSATE 100 MG CAPSULE PO ×2 (16:24→20:27)
[2021-07-23] MEDS: BISACODYL 10 MG SUPP PR (16:24)
[2021-07-23] MEDS: DIGOXIN 500 MCG/2 ML AMPUL 125 MCG IV (17:20)
[2021-07-23 17:31] LABS: Hematocrit 26.9 % (41-53); Hemoglobin 8.8 g/dL (13.5-17.5); Mean Corpuscular HGB Conc 32.7 % (30-36); Mean Corpuscular Hemoglobin 29.2 PG (26-34); Mean Corpuscular Volume 89.4 fL (80-100); Platelet Count 216 X10^3/uL (150-400); Red Blood Cell Count 3.01 X10^6/uL (4.5-5.9); Red Cell Distribution Width 15.4 % (11.6-14.8); White Blood Cell Count 12.9 X10^3/uL (4.5-11.0)
[2021-07-23 17:48] LABS: BUN Creatinine Ratio 30.1 (6-22); Blood Urea Nitrogen 28 mg/dL (9-20); Calcium 8.7 mg/dL (8.4-10.2); Carbon Dioxide 38 mmol/L (22-32); Chloride 94 mmol/L (98-107); Estimated Glomerular Filt Rate > 60.0 mL/min (>60); Glucose 122 mg/dL (80-110); HEMOLYSIS < 15 (0-50); Magnesium 1.9 mg/dL (1.6-2.3); Potassium 4.1 mmol/L (3.4-5.1); Sodium 134 mmol/L (137-145)
[2021-07-23] MEDS: SODIUM CHLORIDE 0.9% 250 ML 21 ML IV ×2 (18:23→21:41)
[2021-07-23] MEDS: MELATONIN 3 MG TABLET 6 MG PO (20:27)
[2021-07-23] MEDS: ATORVASTATIN 20 MG TABLET PO (20:27)
[2021-07-23] MEDS: QUETIAPINE 25 MG TABLET 50 MG PO (20:28)
[2021-07-23] MEDS: AMIODARONE 200 MG TABLET 400 MG PO (20:28)
[2021-07-23] MEDS: ACETAMINOPHEN 325 MG TABLET 650 MG PO (20:29)
[2021-07-23] MEDS: SENNOSIDES 8.6 MG TABLET 17.2 MG PO (20:29)
[2021-07-23] MEDS: ALBUTEROL 2.5 MG/3 ML NEB (ADULT) INH (20:52)
[2021-07-23] MEDS: SODIUM CHLORIDE 0.9% (RT/INH) 3 ML NEB INH (20:53)
--- NOTE | 2021-07-23 20:55 | PM.ICURNDS ---
- :: This patient was seen via real time interactive two-way audiovisual telecommunication. Note: Patient still with afib with RVR despite Amiodarone drip protocol on 07/21, Amiodarone 200 mg PO BID, metoprolol 200 mg QAM and 100 mg QPM, and Diltiazem 360 mg ER QD. This morning patient's HR at times as high as 130-140s. Pt. got digoxin 125 mg IV. HR 110-130s for most of day and tonight it is 140s again. Will try another Amiodarone bolux [address] neg for PE but does show small loculated bilateral pleural effusions with super imposed opacities which could represent atelectasis vs PNA. Zosyn was added yesterday for PNA and Vanco added today to broaden coverage for HCAP. Sputum culture sent.
[2021-07-23] MEDS: AMIODARONE 150 MG/100 ML PIGGYBACK 600 MG IV (21:32)
[2021-07-23] MEDS: VANCOMYCIN 1,000 MG/200 ML PIGGYBACK 200 MG IV (22:23)
[2021-07-24] VITALS (19 sets, daily range): BP systolic 103–156; BP diastolic 55–70; PULSE 72–133; RESP 16–24; TEMP 36.4–36.8; O2SAT 90–98
[2021-07-24 00:07] LABS: Alanine Aminotransferase 19 IU/L (<50); Albumin 3.6 g/dL (3.5-5.0); Albumin Globulin Ratio 1.3 (1.0-2.8); Alkaline Phosphatase 67 U/L (38-126); Aspartate Aminotransferase 19 IU/L (17-59); Bilirubin Total 0.6 mg/dL (0.2-1.3); Bilirubin Unconjugated 0.5 mg/dL (0.0-1.1); Globulin 2.7 g/dL (1.7-4.1); HEMOLYSIS < 15 (0-50); Total Protein 6.3 g/dL (6.3-8.2)
--- NOTE | 2021-07-24 00:28 | PM.EICU.INT ---
Teleintensivist Intervention Date/Time Was camera activated?: Yes Date Patient Seen: 07/24/21 Time Patient Seen: 00:15 Issue(s) Addressed Issue(s): Arrhythmia Other:: patient in persistent Afib/flutter with RVR. After Amio bolus of 150 mg, HR went from 140s to 120-130s. Intervention(s) :: LFTs checked which were normal. Ordered for another Amio bolus 150 mg IV. If HR remains > 120, will restart Amio drip protocol. Plan to continue monitoring daily LFTs at least for next 3 days. If patient remains in Afib/flutter with RVR despite high dose Metoprolol, Diltiazem, and Amio, then consider either more Digoxin or Ibutilide. Plan discussed with: Nurse
[2021-07-24] MEDS: MAGNESIUM SULFATE 2 GM/50 ML PIGGYBACK IV (01:03)
[2021-07-24] MEDS: AMIODARONE 150 MG/100 ML PIGGYBACK 600 MG IV (01:04)
[2021-07-24] MEDS: AMIODARONE 360 MG/200 ML PIGGYBACK 33.333 MG IV (01:30)
[2021-07-24] MEDS: PIPERACILLIN/TAZO 3.375 GM in SODIUM CHLORIDE 0.9% 100 ML 25 ML IV ×3 (01:53→18:37)
[2021-07-24] MEDS: AMIODARONE 360 MG/200 ML PIGGYBACK 16.7 MG IV (07:42)
[2021-07-24 08:45] LABS: Alanine Aminotransferase 16 IU/L (<50); Albumin 3.2 g/dL (3.5-5.0); Albumin Globulin Ratio 1.2 (1.0-2.8); Alkaline Phosphatase 61 U/L (38-126); Aspartate Aminotransferase 17 IU/L (17-59); Bilirubin Total 0.5 mg/dL (0.2-1.3); Bilirubin Unconjugated 0.5 mg/dL (0.0-1.1); Globulin 2.7 g/dL (1.7-4.1); HEMOLYSIS < 15 (0-50); Total Protein 5.9 g/dL (6.3-8.2)
[2021-07-24] MEDS: METOPROLOL ER 50 MG TABLET 200 MG PO (09:10)
[2021-07-24] MEDS: FERROUS SULFATE 325 MG TABLET PO (09:11)
[2021-07-24] MEDS: DOCUSATE 100 MG CAPSULE PO (09:11)
[2021-07-24] MEDS: PANTOPRAZOLE DR 40 MG TABLET PO ×2 (09:11→20:26)
[2021-07-24] MEDS: dilTIAZem CD 180 MG CAP 360 MG PO (09:11)
[2021-07-24] MEDS: VANCOMYCIN 1,000 MG/200 ML PIGGYBACK 200 MG IV (09:14)
[2021-07-24] MEDS: SODIUM CHLORIDE 0.9% FLUSH 10 ML IV ×2 (09:15→20:30)
--- NOTE | 2021-07-24 09:27 | CM.DPC ---
Addendum entered by Lorrie Mercado R.N. 07/24/21 12:08: Spoke to , as 0900 picker time may be the time, since [facility] 10:00-11:00. , Owen, in agreement of 0900, since the [facility] runs [id number]. Went ahead and called Ambulance and set up picker time for tomorrow at 0900, with Rola at Ambulance. Let her know that thee are 3-4 stairs to enter home, and that patient should be going on oxygen and cath. Will need hopitalist to complete orders in the early am. Addendum entered by Lorrie Mercado R.N. 07/24/21 11:17: Spoke to patient in his room. Briefly mentioned going to rehab before going home to get stronger. Patient stated, I don't know. Asked him if this inventory planner can call his daughter, Medina, to ensure that this is the plan. He stated, yes, please call my daughter. Called Medina. Asked her if this is the plan for patient to go to rehab versus going home. She stated. I think it would be a good idea to get him stronger before he goes home. Let her know that this nurse case management has attempted some facilities, some unable to accept such as [facility] due to insurance, and [facility] due to limited number of beds. [facility] is still pending. Let her know that this inventory planner may need to go out of town for a place. She indicated, that would be fine. Went ahead and contacted [facility]. Spoke to Loida in admissions at [facility]. She indicated that they currently have one mail bed available. Did let her know that patient has [employer]. She indicated, they most likely will not be able to get authorization until Tuesday, but they may be able to accept him then, as they are expecting more discharges. Gave her patient's name, and went ahead and faxed over referral, including H&P, progress notes, nursing notes, P.T, and O.T. notes. She will review. So far, [facility] is reviewing, and now, Jen. Left a message with Savanah at [facility] to see if she has reviewed. Original Note: DCP Cont: Spoke to Margie at [facility]. She indicated, they are not contracted with this [employer], and can't accept. Anna from [facility] called back, for this inventory planner called her this morning. Stated, they can't accept him, because they don't have anywhere near the nursing station that they can keep an eye on him. Called Savanah at [facility] about referral, and she will review. She is aware of the insurance. Left a message with Branden at [facility] as well. P: DCP to continue to follow. Will also reach out to daughter, Medina, for patient may need to go home with home if a place can't be secured. Lorrie Mercado RN/Cash Processing Specialist
--- NOTE | 2021-07-24 09:46 | PT.IPTN ---
Addendum entered and electronically signed by Cuca Linton PTA 07/24/21 12:04: Home 23/05 available vs SNF. Original Note: Current Diagnoses Anemia, unspecified (07/19/21) Unspecified atrial fibrillation (07/19/21) Personal history of other diseases of the digestive system (07/19/21) Surgery Performed Operation Date: 07/22/21 17:00 Actual Procedures p Esophagogastroduodenoscopy(Not Applicable) - Michael Melgoza MD Physical Therapy Treatment Note M2 PT-IP Current Condition Start: 07/20/21 08:45 Freq: NEEDED Status: Active Protocol: Document 07/20/21 11:15 AW (Rec: 07/20/21 12:53 AW [id number]) Physical Therapy Current Condition Current Condition Evaluation Date 07/20/21 Treatment Diagnosis a fib, RVR, difficulty in walking Onset Date 07/19/21 M3 PT-IP Subjective Start: 07/20/21 08:45 Freq: NEEDED Status: Active Protocol: Document 07/24/21 09:23 SP (Rec: 07/24/21 12:01 SP [id number]) Subjective Physical Therapy Visit Type Type Treatment Note Visit Start Time 09:23 Visit Stop Time 09:46 Total Visit Minutes 23 Notes H&H: 8.8/26.9 Vital taken during tx: elevated supine: BP125/63 HR 120, SaO2 93% on 2L seated at EOB: 124/62 HR 129 SaO2 94% on 2L standing from chair post mobility gait in room: 113/56 HR 130 SaO2 84% on 2L (+ SOB), cued pursed lip breath with increase SaO2 93% within in seconds. Seated in chair rest: 119/61, H 126bpm, SaO2 96% on 2L. Physical Therapy Visit Comments Patient Comments Pt willing to work with therapy. I just feel tired and weak, I want to get up and move around. Patient Goals Pt stated willing to go to skilled rehab to get stronger before going home. Therapy Pain Assessment Pain Present Pain Present Denied Pain M4 PT-IP Mobility and Gait Start: 07/20/21 08:45 Freq: NEEDED Status: Active Protocol: Document 07/24/21 09:23 SP (Rec: 07/24/21 12:01 SP [id number]) PT-Bed Mobility Assessment Supine to Sit Supine to Sit Standby Assistance,Head of Bed Elevated,Bedrails Scooting Scooting to Edge of Bed Standby Assistance PT-Transfer Assessment Sit to and From Stand Sit to and from Stand Contact Guard Assistance, Minimal Assistance,1 Person Assistance,Use of Upper Extremities Equipment Transfer Assistive Device Gait Belt,Front Wheeled Walker Orthotic/Prosthetic Devices or Brace: No Transfers Transfer Destination Chair Transfer Technique ambulated in room using FWW Transfer Ability Level of Assist Standby Assistance,Contact Guard Assistance,1 Person Assistance,Use of Upper Extremities Comments Mobility Comments Pt elevated supine>sit and scoot to EOB using RUE ( sensitive IV in LUE tried not to use WB mobility) SBA, requiring CGA- Min A for sit<> stand using FWW with cues for pushing from bed and hip hinge then transition hands to FWW. Pt unsteady on feet coming to standing retro lean Min A recovery. REcommended use of FWW at this time for safety standing balance and mobiltiy with pt in agreement. I can' t believe I am so weak. Pt able to ambulated R side bed> front sink> bench> front chair approx 25 ft total CGA- SBA with PEAR PICKER managing IV pole and tubing. Pt required cuing for tall posture, body closer to FWW and slow pursed lip breath with stand stop rests as needed for safety to allow proper SaO2 decreased to 84% during gait, improved purse lip breath education standing front chair during vital assessment. Stand>sit SBA good slow descent into chair. Assisted pt recline LEs in chair due decreaseds strength self recline this tx (has done himself in past txs. Pt had call light and all needs in reach ih chair alarm donned before left. Gait Assessment Gait Gait Assistance Required: Standby Assistance,Contact Guard Assist,1 Person Assist Distance (Feet) 25 Able to Maintain Weight Bearing Status Yes During Gait Assistive Devices Assistive Device Gait Belt,Front Wheeled Walker Orthotic/Prosthetic Devices or Brace: No Gait Deviations General Gait Pattern Antalgic,Decreased Stride Length,Decreased Feet Clearance,Flexed Trunk Factors Limiting Gait Function Factors Limiting Gait Function Decreased Activity Tolerance, Decreased Strength,Poor Balance,Poor Safety Awareness Comments Gait Comments See mobility comments for details. Stair Climbing Assessment Comments Stair Climbing Comments Not assessed. No stairs at home. PT-Balance Assessment Sitting Balance and Reactions Static Sitting Balance Ability Normal Dynamic Sitting Balance Ability Good Standing Balance and Reactions Static Standing Balance Ability Good Dynamic Standing Balance Ability Fair Device Used FWW M5 PT-IP Objective Assessments Start: 07/20/21 08:45 Freq: NEEDED Status: Active Protocol: Document 07/20/21 11:15 AW (Rec: 07/20/21 12:53 AW [id number]) Orientation Orientation/Cognition Level of Alertness Confusional State Orientation Name,Month,Place,Situation Language Function Ability Hard of Hearing Safety Awareness Understands Safety Issues Memory Description Short Term Impaired Comments Pt incorrectly reports he has had no falls but his daughter reminds him that 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 Gross Range of Motion Lower Extremity ROM Assessment Within Functional Limits Strength Lower Extremity Strength Assessment Within Functional Limits Hip 4+/5 Knee 5/5 Ankle 5/5 Coordination Assessment Gross Coordination Gross Coordination WNL Assessment Finger to Nose Test Normal Performance Foot Tapping Test Normal Performance Sensation Assessment Sensation Gross Sensation WNL Muscle Tone Muscle Tone WNL Yes M6 PT-IP Treatment Start: 07/20/21 08:45 Freq: NEEDED Status: Active Protocol: Document 07/24/21 09:23 SP (Rec: 07/24/21 12:01 SP [id number]) Physical Therapy Treatment Education Education Provided Safety M7 PT-IP Assessment and Plan Start: 07/20/21 08:45 Freq: NEEDED Status: Active Protocol: Document 07/24/21 09:23 SP (Rec: 07/24/21 12:01 SP [id number]) PT Summary Assessment and Plan Potential Rehabilitation Potential Good Status of Condition at Evaluation Evolving Summary Impairments Balance,Gait,Activity Tolerance Progress Towards Goals Slow Progress due to Medical Issues,Slow Progress due to Activity Tolerance Assessment Summary Pt required SBA- CGA during most of mobility this tx, LOB retro in standing when trying to come to standing with hands on FWW, Min A recovery. Unsteady of feet without AD assessment SPC vs FWW, provided fWW for stability this tx due to swaying. Pt's HR 120-130 bpm during tx. PEAR PICKER discussed with pt decreased strength and balance without BUE support AD pt in agreement , will continue use of fWW at this time. Pt would benefit from continued skilled therapy , recocmmending SNF upon DC to improved functional mobility before returning home. Goals Bed Mobility Goal Independent Transfer Goal Independent Gait Goal Independent,Cane Gait Distance 200 Frequency of Treatment Frequency Of Treatment Once a Day Treatment Plan Physical Therapy Treatment Plan Gait Training,Therapeutic Exercise,Balance Retraining, Discharge Planning, Neuromuscular Re-ed Other Recommendations and Next Treatment Assess vitals throughout tx HR Focus & SaO2, transfers, balance, gait FWW vs SPC. Distance gait if vitals safe. Precautions Other Precautions falls Recommendations To Nursing Amount of Assist Needed 1 Person Assist Discharge Recommendations PT Discharge Recommendations SNF Rehab Other Discharge Recommendations FWW if unsafe with SPC Transportation Needs at Discharge Private Vehicle,Wheelchair/ Cabulance
--- NOTE | 2021-07-24 12:00 | OT.IP.TRT ---
Current Diagnoses Anemia, unspecified (07/19/21) Unspecified atrial fibrillation (07/19/21) Personal history of other diseases of the digestive system (07/19/21) Surgery Performed Operation Date: 07/22/21 17:00 Actual Procedures p Esophagogastroduodenoscopy(Not Applicable) - Michael Melgoza MD Occupational Therapy Treatment Note M2 OT-IP Current Condition Start: 07/20/21 11:30 Freq: Status: Active Protocol: Document 07/20/21 11:30 CGR (Rec: 07/20/21 11:40 CGR [id number]) Occupational Therapy Current Condition Current Condition Evaluation Date 07/20/21 Treatment Diagnosis Afib with RVR Diagnosis Onset Date 07/19/21 M3 OT- IP Subjective and Pain Start: 07/20/21 11:30 Freq: Status: Active Protocol: Document 07/24/21 12:04 CCC (Rec: 07/24/21 12:11 CCC [id number]) OT- Subjective Occupational Therapy Visit Type Type Treatment Note Visit Start Time 11:00 Visit Stop Time 11:30 Total Visit Minutes 30 Occupational Therapy Visit Comments Patient Comments Pt agreed to work with OT. Patient/Caregiver Goals Pt now agrees that it would be best for him to go to skilled rehab before going home. OT Pain Assessment Pain When Pain Assessed At Rest Pain Present Pain Present Denied Pain M7 OT- IP Mobility and Balance Start: 07/20/21 11:30 Freq: Status: Active Protocol: Document 07/24/21 12:04 CCC (Rec: 07/24/21 12:11 CCC [id number]) OT-Transfer Assessment Sit to and From Stand Sit to and from Stand Standby Assistance Comments Mobility Comments Pt not able to come to stand without use of his hands and therefore scored 0 for 30 seconds chair sit to stand test . When having pt able to use his hands on the armrest able to stand 8 times. For pt's age a score of 10-15 in the average score when not using hands to come to stand. Pt on 2L on O2 and dropped to 91% and able to come up to 96% at the end of the session. Pt mainly complaining of being SOB. Edema Absent M9 OT- IP Assessment and Plan Start: 07/20/21 11:30 Freq: Status: Active Protocol: Document 07/24/21 12:04 CCC (Rec: 07/24/21 12:11 [facility] [id number]) OT Summary Assessment and Plan Potential Rehabilitation Potential Good Analytic Complexity at Evaluation Low Summary OT Impairments Balance,Functional Cognition, Functional Mobility,Dressing, Toileting,Bathing,Activity Tolerance Progress Towards Goals Slow Progress due to Activity Tolerance,Slow Progress due to Cognition Assessment Summary Pt did not recall given pt information of memory strategies yesterday. Able to give pt a pad of paper to help write down things for himself to recall. Pt states at home he has a routine set- up and has many pads of paper all over the house to help him recall things.. Pt states he has to immediately write things down otherwise he will forget. Pt would still benefit from short skilled stay prior to going home. Goals Grooming Goal Independent Dressing Goal Independent Toileting Goal Independent Bathing Goal Independent Toilet Transfer Goal Independent Shower Transfer Goal Independent Days to Meet Goals 10 Frequency of Treatment Frequency Of Treatment Once a Day Treatment Plan OT Treatment Plan ADL Training,Functional Cognition Training,Functional Mobility,Patient/Family Education,Discharge Planning Other Treatment Recommendations and Next shower Treatment Focus Discharge Recommendations OT Discharge Recommendations SNF Rehab Transportation Needs at Discharge Private Vehicle,Wheelchair/ Cabulance
--- NOTE | 2021-07-24 12:16 | CM.DPC ---
Addendum entered by Lorrie Mercado R.N. 07/24/21 15:49: Loida at [facility] indicated, he can go Tuesday if needed, she will just need to fax [employer]. Addendum entered by Lorrie Mercado R.N. 07/24/21 15:45: Spoke to Ivy at [facility]. She indicated that patient would be authorized for [facility]. Asked her how good the auth would be for, and she indicated, up to 08/05. Called Loida at [facility], and she confirmed that she received auth, but not until Tuesday. Asked her if she can see if he can be authorized starting Tuesday, in case he is medically ready. She indicated that she will contact Ivy again at [facility], and ask her. Otherwise, it will be Tuesday. Will update patient's daughter, Medina. Addendum entered by Lorrie Mercado R.N. 07/24/21 12:17: Loida from [facility] called back and indicated, they should be able to accept patient. She indicated that they will initiate auth, and hope to get today, will let this materials planner know, if not today, may have to wait until Tuesday. Original Note: DCP Cont: Spoke to patient in his room. Briefly mentioned going to rehab before going home to get stronger. Patient stated, I don't know. Asked him if this materials planner can call his daughter, Medina, to ensure that this is the plan. He stated, yes, please call my daughter. Called Medina. Asked her if this is the plan for patient to go to rehab versus going home. She stated. I think it would be a good idea to get him stronger before he goes home. Let her know that this nurse outreach case manager has attempted some facilities, some unable to accept such as [facility] due to insurance, and [facility] due to limited number of beds. [facility] is still pending. Let her know that this materials planner may need to go out of town for a place. She indicated, that would be fine. Went ahead and contacted [facility]. Spoke to Loida in admissions at [facility]. She indicated that they currently have one mail bed available. Did let her know that patient has [employer]. She indicated, they most likely will not be able to get authorization until Tuesday, but they may be able to accept him then, as they are expecting more discharges. Gave her patient's name, and went ahead and faxed over referral, including H&P, progress notes, nursing notes, P.T, and O.T. notes. She will review. So far, [facility] is reviewing, and now, [facility]. Left a message with Savanah at [facility] to see if she has reviewed. Lorrie Mercado RN/Counselor At Law
--- NOTE | 2021-07-24 13:57 | PM.PN.1 ---
Subjective Subjective Date Patient Seen: 07/24/21 Time Patient Seen: 08:00 Interval history: Yesterday he was in afib with RVR, he had his amiodarone increasd. He had digoxin IV trialed, these did not improve his heart rate significantly. He was reordered for amiodarone infusion overnight, and his heart rate had good improvement. He had a CT chest that showed no PE and small pleural effusions. Induced sputum ordered and shows many WBCs and no growth. He has been on zosyn and vancomycin for pneumonia. This morning he feels somewhat improved. He feels short of breath, but less so with his heart rate under improved control. Exam Vital Signs (past 8 hours): - 07/24/21 06:00 07/24/21 07:55 07/24/21 08:00 Temperature 97.8 F Pulse Rate 106 H 116 H Respiratory Rate 18 Blood Pressure 110/55 L 118/62 Pulse Oximetry 94 93 98 07/24/21 10:45 07/24/21 11:30 07/24/21 12:00 Temperature 97.7 F Pulse Rate 118 H Respiratory Rate 19 Blood Pressure 114/64 Pulse Oximetry 95 94 94 Oxygen Delivery Method Nasal Cannula Oxygen Flow Rate 2 Narrative Exam Narrative: GENERAL APPEARANCE: somewhat frail, elderly male in no acute distress. SKIN:scattered upper extremity bruising, no other notable lesions. LUNGS: coarse breath sound bilaterally, decreased at bases CARDIOVASCULAR: tachycardic, irregular rhythm. no m/r/g. ABDOMEN: soft, nontender, nondistended, no organomegaly MUSCULOSKELETAL: There was no tenderness or effusions noted. Muscle strength and tone were normal. EXTREMITIES: No cyanosis, clubbing or edema. NEUROLOGIC: Alert and oriented to name and place. Normal affect.? Cognitive impairment evident.? Objective Labs Result Diagrams: 07/23/21 17:27 07/23/21 17:27 Labs: Laboratory Results - last 24 hr 07/19/21 07/23/21 07/23/21 07:17 17:27 17:27 WBC 12.9 H RBC 3.01 L Hgb 8.8 L Hct 26.9 L MCV 89.4 MCH 29.2 MCHC 32.7 RDW 15.4 H Plt Count 216 Smear Path Review Sodium 134 L Potassium 4.1 Chloride 94 L Carbon Dioxide 38 H BUN 28 H Creatinine 0.93 Estimated GFR > 60.0 BUN/Creatinine Ratio 30.1 H Glucose 122 H Calcium 8.7 Magnesium Total Bilirubin Conjugated Bilirubin Unconjugated Bilirubin AST ALT Alkaline Phosphatase Total Protein Albumin Globulin Albumin/Globulin Ratio 07/23/21 07/23/21 07/24/21 17:27 17:27 08:12 WBC RBC Hgb Hct MCV MCH MCHC RDW Plt Count Smear Path Review Sodium Potassium Chloride Carbon Dioxide BUN Creatinine Estimated GFR BUN/Creatinine Ratio Glucose Calcium Magnesium 1.9 Total Bilirubin 0.6 0.5 Conjugated Bilirubin 0.0 0.0 Unconjugated Bilirubin 0.5 0.5 AST 19 17 ALT 19 16 Alkaline Phosphatase 67 61 Total Protein 6.3 5.9 L Albumin 3.6 3.2 L Globulin 2.7 2.7 Albumin/Globulin Ratio 1.3 1.2 PFS Medical History Acquired arteriovenous malformation of stomach Aortic valvular stenosis Atrial fibrillation Atrial flutter, paroxysmal Cholelithiasis Chronic obstructive pulmonary disease Fatigue Gallstone pancreatitis Generalized anxiety disorder History of gastrointestinal hemorrhage History of tobacco abuse Hyperlipidemia Hypertension Memory loss Restrictive lung disease Rheumatoid arthritis Transient cerebral ischemia Surgical History H/O sinus surgery History of aortic valve replacement History of colonoscopy History of esophagogastroduodenoscopy (EGD) History of sinus surgery History of tonsillectomy History of tricuspid valve annuloplasty Status post mitral valve annuloplasty Family History Father Heart disease Hypertension Mother Heart disease Sister Heart disease Cancer Social History household members: none Smoking Status: Former smoker Tobacco: How many years used: 60 alcohol intake: former substance use type: does not use Assessment & Plan Assessment & Plan narrative: 1. Chronic atrial flutter/Atrial fibrillation with rapid ventricular response. -Patient with rapid AFib, suspect medication non-adherence possibly due to cognitive impairment -restarted home medications, appears slightly dehydrated and worsened anemia likely contributing. -continue home dilt and metoprolol. discussed with cardiology, recommended amiodarone loading given soft BPs. -control issues may be related to new anemia or pneumonia -TSH 1.37 -07/23 repeated amio drip with improved rate control 2. acute on chronic anemia, normocytic. - guaiac positive on rectal today. Had normal appearing stool according to nursing reports. rectal exam today with very dark material. - Hg to 6.6, given 2 U PRBC, now improved over 8 - has a history of AVM for which he is not on AC. Changed to IV PPI BID instead of PO. - surgery consult for endoscopy. found to have bleeding ulcer which was clipped 3. acute respiratory failure secondary to pneumonia right sided diastolic CHF -started zosyn for pneumonia, vancomycin also added given worse shortness of breath -CT scan showed possible consolidation, small pleural effusions, no PE -sputum cultures ordered -ordered for lasix given decreased RV function, and pleural effusions -wean oxygen as able -EF preserved 60-65% 4.? Essential hypertension, chronic, stable, not present on admission - continue rate control agents at this time, hold lisinopril and other medications. Blood pressures currently low-normal. 5.. Hyperlipidemia, chronic, stable, not present on admit -Will continue patient's home regimen of atorvastatin 20 mg daily. 6.? COPD with restrictive lung disease, chronic, stable, not present on image - continue home medications, albuterol standing and prn. 7. chronic cognitive impairment. ?- previous SLUMS 07/30. OT plans to repeat today as he appears much better than that currently. Code: DNR, surrogate he states is his daughter. Dispo: plan for discharge home when medically stable, with home health. continue PT / OT when bleeding improves. timing unclear at this time. DVT: hold lovenox given h/h drop. Time Spent With Patient Critical Care time: I spent a total of [] minutes of critical care time on this patient's care today; this time is exclusive of procedural time. Quality VTE Deep Vein Thrombosis/Pulmonary Embolism Present on Admission: No
[2021-07-24] MEDS: ACETAMINOPHEN 325 MG TABLET 650 MG PO (15:28)
[2021-07-24] MEDS: METOPROLOL ER 50 MG TABLET 100 MG PO (16:42)
[2021-07-24] MEDS: SODIUM CHLORIDE 0.9% 250 ML 21 ML IV (19:34)
[2021-07-24] MEDS: QUETIAPINE 25 MG TABLET 50 MG PO (20:26)
[2021-07-24] MEDS: ATORVASTATIN 20 MG TABLET PO (20:26)
[2021-07-24] MEDS: AMIODARONE 200 MG TABLET 400 MG PO (20:26)
[2021-07-24] MEDS: MELATONIN 3 MG TABLET 6 MG PO (20:27)
--- NOTE | 2021-07-24 22:14 | PM.ICURNDS ---
- Date Patient Seen: 07/24/21 Time Patient Seen: 22:14 :: This patient was seen via real time interactive two-way audiovisual telecommunication. Note: 85 y.o. male in ICU for rapid AF and presumptive pneumonia. Patient discussed with GARFIELD Maciel RN and RT. Procalcitonin was checked and it is 0.10. Recommend cessation of antibiotics or de-escalation; will defer to bedside team.
[2021-07-25] VITALS (16 sets, daily range): BP systolic 101–119; BP diastolic 39–63; PULSE 69–122; RESP 18–24; TEMP 36.4–37.1; O2SAT 91–100
[2021-07-25] MEDS: PIPERACILLIN/TAZO 3.375 GM in SODIUM CHLORIDE 0.9% 100 ML 25 ML IV (02:41)
[2021-07-25] MEDS: SODIUM CHLORIDE 0.9% FLUSH 10 ML IV ×3 (02:42→21:17)
[2021-07-25] MEDS: ALBUTEROL 2.5 MG/3 ML NEB (ADULT) INH ×2 (03:24→09:30)
[2021-07-25] MEDS: LORazepam 0.5 MG TABLET PO (03:46)
[2021-07-25 04:54] LABS: Hematocrit 25.1 % (41-53); Hemoglobin 8.1 g/dL (13.5-17.5); Mean Corpuscular HGB Conc 32.3 % (30-36); Mean Corpuscular Hemoglobin 29.2 PG (26-34); Mean Corpuscular Volume 90.2 fL (80-100); Platelet Count 217 X10^3/uL (150-400); Red Blood Cell Count 2.78 X10^6/uL (4.5-5.9); Red Cell Distribution Width 15.5 % (11.6-14.8); White Blood Cell Count 8.3 X10^3/uL (4.5-11.0)
[2021-07-25 05:02] LABS: Alanine Aminotransferase 17 IU/L (<50); Albumin 2.9 g/dL (3.5-5.0); Albumin Globulin Ratio 1.3 (1.0-2.8); Alkaline Phosphatase 65 U/L (38-126); Aspartate Aminotransferase 23 IU/L (17-59); Bilirubin Total 0.5 mg/dL (0.2-1.3); Bilirubin Unconjugated 0.4 mg/dL (0.0-1.1); Blood Urea Nitrogen 18 mg/dL (9-20); Calcium 8.2 mg/dL (8.4-10.2); Carbon Dioxide 38 mmol/L (22-32); Chloride 98 mmol/L (98-107); Estimated Glomerular Filt Rate > 60.0 mL/min (>60); Globulin 2.3 g/dL (1.7-4.1); Glucose 114 mg/dL (80-110); HEMOLYSIS 19 (0-50); HEMOLYSIS < 15 (0-50); Potassium 3.5 mmol/L (3.4-5.1); Sodium 138 mmol/L (137-145); Total Protein 5.2 g/dL (6.3-8.2)
--- NOTE | 2021-07-25 08:30 | CM.DPC ---
DCP Cont: Patient was updated by this wrapper caser that a facility was found, let him know that this process planner was unable to secure a place closer. Let him know that [facility] is in [place], and would be a temporary place for him to go to get stronger with the goal to go home with home health. He is ok with this idea. Updated hospitalist, asked him if he felt he would be medically ready, and indicated, could be today or tomorrow. Left a message with Loida at [facility], asking her if possible today, or tomorrow. Asked her in the message if she could set up transportation with [facility] as well. P: DCP to continue to follow. Will follow up with [facility] today. Patient has been updated. Lorrie Mercado RN/Director Of Psychology
[2021-07-25] MEDS: AMIODARONE 200 MG TABLET 400 MG PO ×2 (08:34→21:16)
[2021-07-25] MEDS: PANTOPRAZOLE DR 40 MG TABLET PO ×2 (08:34→21:15)
[2021-07-25] MEDS: FERROUS SULFATE 325 MG TABLET PO (08:34)
[2021-07-25] MEDS: METOPROLOL ER 50 MG TABLET 200 MG PO (08:34)
[2021-07-25] MEDS: dilTIAZem CD 180 MG CAP 360 MG PO (08:34)
--- NOTE | 2021-07-25 11:57 | OT.IP.TRT ---
Current Diagnoses Anemia, unspecified (07/19/21) Unspecified atrial fibrillation (07/19/21) Personal history of other diseases of the digestive system (07/19/21) Surgery Performed Operation Date: 07/22/21 17:00 Actual Procedures p Esophagogastroduodenoscopy(Not Applicable) - Michael Melgoza MD Occupational Therapy Treatment Note M2 OT-IP Current Condition Start: 07/20/21 11:30 Freq: Status: Active Protocol: Document 07/20/21 11:30 CGR (Rec: 07/20/21 11:40 CGR [id number]) Occupational Therapy Current Condition Current Condition Evaluation Date 07/20/21 Treatment Diagnosis Afib with RVR, bilateral PNA Diagnosis Onset Date 07/19/21 M3 OT- IP Subjective and Pain Start: 07/20/21 11:30 Freq: Status: Active Protocol: Document 07/25/21 12:05 CCC (Rec: 07/25/21 12:15 CCC [id number]) OT- Subjective Occupational Therapy Visit Type Type Treatment Note Visit Start Time 11:04 Visit Stop Time 11:57 Total Visit Minutes 53 Occupational Therapy Visit Comments Patient Comments Pt agreed to shower. Patient/Caregiver Goals TO go to skilled rehab prior to going home. OT Pain Assessment Pain When Pain Assessed At Rest Pain Present Pain Present Denied Pain M4 OT- IP ADL's Start: 07/20/21 11:30 Freq: Status: Active Protocol: Document 07/25/21 12:05 CCC (Rec: 07/25/21 12:15 CCC [id number]) OT [id number] Comments OT Self-Feeding Comments Not at meal time. OT ADL-Grooming General Evaluation Grooming Ability Standby Assistance Comments OT Grooming Comments while steated OT ADL-Oral Care General Eval Oral Care Ability Independent OT ADL-Dressing General Eval Lower Body Dressing Ability Moderate Assistance Comments OT Dressing Comments Pt able to doff socks and gown but tired from the shower and requesting assist to lucrecia his socks and brief over his feet . OT ADL-Toileting Comments OT Toileting Comments Pt not having to go. OT ADL-Bathing Bathing Type Bathing Type Shower General Evaluation Bathing Ability Minimal Assistance Areas Needing Assistance Wash/Dry Back Devices Bathing Equipment Hand Held Shower Sprayer, Shower Chair with Arms Comments OT Bathing Comments Assist to wash and dry his back. Pt sat for most of the shower and only stood for pericare needs. Pt's O2 on 3L and dropped to 89% and hr at 139, notified nursing and nursing increased O2 to 4L and O2 level quickly increased to above 97%. M6 OT- IP Functional Cognition Start: 07/20/21 11:30 Freq: Status: Active Protocol: Document 07/25/21 12:05 [facility] (Rec: 07/25/21 12:15 [facility] [id number]) Cognitive Factors Limiting Selfcare Function Cognitive Ability Level of Alertness Alert Patient Orientation Name,Place Attention Span Ability Capable of Focused Attention, Capable of Sustained Attention Ability to Follow Commands Able to Follow One Step Commands Memory Description Short Term Impaired Cognitive Comments Cognitive Assessment Comments Pt still having decreased short term memory and needing to write everything down. M7 OT- IP Mobility and Balance Start: 07/20/21 11:30 Freq: Status: Active Protocol: Document 07/25/21 12:05 [facility] (Rec: 07/25/21 12:15 [facility] [id number]) OT-Transfer Assessment Sit to and From Stand Sit to and from Stand Standby Assistance Technique Transfer Destination Chair,Shower Stall Devices Transfer Assistive Devices Gait Belt,Front Wheeled Walker Comments Mobility Comments SBA with FWW and assist to manage O2 tubes. OT- Gait Assessment Comments Gait Ability Comments SBA with FWW in the room. OT- Balance Assessment Sitting Balance and Reactions Static Sitting Balance Ability Normal Dynamic Sitting Balance Ability Good Standing Balance and Reactions Static Standing Balance Ability Good M8 OT- IP Objective Assessments Start: 07/20/21 11:30 Freq: Status: Active Protocol: Document 07/20/21 11:30 CGR (Rec: 07/20/21 11:40 CGR [id number]) OT Gross Range of Motion Upper Extremity Range of Motion Assessment Within Functional Limits OT Strength Upper Extremity Strength Assessment Within Functional Limits Comments Strength Comments 5/5 OT- Coordination Assessment Upper Extremity Finger to Nose Test Within Functional Limits Finger Tapping Test Within Functional Limits OT-Muscle Tone Assessment Muscle Tone WNL Yes OT Sensation Assessment Edema Edema Absent M9 OT- IP Assessment and Plan Start: 07/20/21 11:30 Freq: Status: Active Protocol: Document 07/25/21 12:05 [facility] (Rec: 07/25/21 12:15 [facility] [id number]) OT Summary Assessment and Plan Potential Rehabilitation Potential Good Analytic Complexity at Evaluation Moderate Summary OT Impairments Balance,Functional Cognition, Functional Mobility,Dressing, Toileting,Bathing,Activity Tolerance Progress Towards Goals Progressing Toward Goals Assessment Summary Pt able to tolerate showering today. Pt O2 dropped to 89% on 3L while showering and nursing able to increase O2 to 4L and increased to above 97% shortly. Pt's HR still elevated at most 143hr and after sitting back down in the recliner dropped to 133 eventually. Pt looking to go to skilled rehab when medically stable. Goals Grooming Goal Independent Dressing Goal Independent Toileting Goal Independent Bathing Goal Independent Toilet Transfer Goal Independent Shower Transfer Goal Independent Days to Meet Goals 9 Frequency of Treatment Frequency Of Treatment Once a Day Treatment Plan OT Treatment Plan ADL Training,Functional Cognition Training,Functional Mobility,Patient/Family Education,Discharge Planning Discharge Recommendations OT Discharge Recommendations SNF Rehab Transportation Needs at Discharge Wheelchair/Cabulance
--- NOTE | 2021-07-25 12:13 | CM.DPC ---
Addendum entered by Lorrie Mercado R.N. 07/25/21 14:31: Patient's daughter, Kim, called back regarding being able to transport patient. She indicated that her or her sister are unable to transport patient. Mentioned to her that the only way to get patient down there would be BLS transport, since he is on oxygen and weak, and with cardiac monitoring, may be feasable for patient. Did let her know that patient could be charged for transport. Daughter indicated, it's ok, he has lots of money. Let her know that this event planner will go ahead and set up transport for tomorrow, and will update in the morning. Went ahead and left Loida at [facility] a message, that this event planner will work on transportation for tomorrow. Called [facility], spoke to Jony, and set up worm picker time for tomorrow at 12:30. Did get in touch with Loida at [facility], and let her know that patient could arrive there between [id number]. She did ask for updated therapy notes, and progress notes. Went ahead and faxed over updated notes, and included PASSR, so she can review. Tomorrow, will fax over signed med sheets. BLS paperwork completed with POLST attached. Addendum entered by Lorrie Mercado R.N. 07/25/21 13:16: Wallet was not in safe, patient was able to find his wallet in the room, and had his proof of COVID vaccination on him. ICU nurse made a copy and gave it to this event planner. Faxed it over to [facility] [place]. Have not yet heard back from daughters regarding transportation, but will follow up today. Original Note: DCP Cont: Spoke to Loida at [facility], for Dr. Mcneil, hospitalist, indicated that patient most likely will be medically ready by tomorrow. Loida indicated that she would contact [facility] to see if they could transport patient, and will call back. Loida indicated that [facility] can't transport patient tomorrow, only Tuesday. Updated patient again this morning, that this counter caser was unable to secure a local custodial, and that [facility] was the only facility. Called daughter, Medina, and asked her if she would be able to transport patient. She asked to call her sister, kim, to see if she can transport him tomorrow. Medina also asked if her sister, Kim, can be designated visitor, instead of her. Confirmed with community coordinator that only the same person can be designated, can't change visitors. Explained this to daughter, Medina. She did encourage this counter caser to call her sister to see if she can transport tomorrow. Checked in with patient, updated him, and asked his permission to contact his other daughter, Kim. He gave permission. Called Kim, and she stated, I'm surprised my sister can't do it, she doesn't work as much as me. Encouraged her to call her sister and work out transportation, and call this counter caser back. Have updated Loida at [facility], that transportation is being worked on for tomorrow. Asked Medina if patient has copy of COVID vaccine card. She indicated, it's probably in his wallet. Patient may have his wallet locked in safe here, Geraldine, nurse coordinator, will check on this. P: DCP to continue to follow. Continuing to attempt to get patient over to [facility] tomorrow. Lorrie Mercado RN/Civil Engineer'S Aide
[2021-07-25] MEDS: ACETAMINOPHEN 325 MG TABLET 650 MG PO ×2 (14:02→21:15)
--- NOTE | 2021-07-25 14:48 | PT.IPTN ---
Current Diagnoses Anemia, unspecified (07/19/21) Unspecified atrial fibrillation (07/19/21) Personal history of other diseases of the digestive system (07/19/21) Surgery Performed Operation Date: 07/22/21 17:00 Actual Procedures p Esophagogastroduodenoscopy(Not Applicable) - Michael Melgoza MD Physical Therapy Treatment Note M2 PT-IP Current Condition Start: 07/20/21 08:45 Freq: NEEDED Status: Active Protocol: Document 07/20/21 11:15 AW (Rec: 07/20/21 12:53 AW [id number]) Physical Therapy Current Condition Current Condition Evaluation Date 07/20/21 Treatment Diagnosis a fib, RVR, difficulty in walking Onset Date 07/19/21 M3 PT-IP Subjective Start: 07/20/21 08:45 Freq: NEEDED Status: Active Protocol: Document 07/25/21 14:25 SP (Rec: 07/25/21 17:05 SP [id number]) Subjective Physical Therapy Visit Type Type Treatment Note Visit Start Time 14:25 Visit Stop Time 14:48 Total Visit Minutes 23 Notes 07/25: H&H 8.1/25.1. Vitals taken during tx: elevated supine: BP 108/54 HR 76 bpm, SaO2 93% on 2L. HR during mobility 88-114 bpm, SaO2 84%- 93% on 2L with mobility, recovers within 10 sec purse lip breath education . Number of INTERNAL MEDICINE DOCTOR Visits 4 Physical Therapy Visit Comments Patient Comments Pt willing to work with therapy. Patient Goals I think I am going to a rehab facility tomorrow,I don't know the name. Therapy Pain Assessment Pain Present Pain Present Denied Pain M4 PT-IP Mobility and Gait Start: 07/20/21 08:45 Freq: NEEDED Status: Active Protocol: Document 07/25/21 14:25 SP (Rec: 07/25/21 17:05 SP [id number]) PT-Bed Mobility Assessment Supine to Sit Supine to Sit Standby Assistance,Head of Bed Elevated Sit to Supine Sit to Supine Standby Assistance Scooting Scooting to Edge of Bed Standby Assistance PT-Transfer Assessment Sit to and From Stand Sit to and from Stand Standby Assistance,Contact Guard Assistance,1 Person Assistance,Use of Upper Extremities Equipment Transfer Assistive Device Gait Belt,Straight Cane,Front Wheeled Walker Orthotic/Prosthetic Devices or Brace: No Transfers Transfer Destination Bed Transfer Technique ambulated in room using FWW, SPC Transfer Ability Level of Assist Standby Assistance,Contact Guard Assistance,Minimal Assistance,1 Person Assistance ,Use of Upper Extremities Comments Mobility Comments Elevated supine>sit, scoot to EOB SBA without bed rails. Seated unsuppported EOB. Sit> stand CGA, cued for pushing from bed to stand not use FWW to pull from, little retro lean initially improved cues for stand tall over feet then back legs not lean on bed. Pt was able to ambulated using FWW to door SBA while INTERNAL MEDICINE DOCTOR managed O2 tubing and HR monitoring, pt stated I think I can walk without holding on , maybe I can use my cane again. Pt proceeded to walk carrying FWW over to cane 20 ft, wt shift sways with CGA for recoveries. Pt ableto walk x4 laps in room using SPC in RUE, CGA with occasional cues for stopped stand rest education on purse lip breath to allow SaO2 recovery and reduction in HR, recovered in 10 sec stand rest x 3 instances before returning to bed. INTERNAL MEDICINE DOCTOR assessed balance standing EOB: NBOS head turns EO, EC 30 sec, LOB x1 Min recovery during foot position into semi tandem. Stand>sit CGA with use of BUEs onto bed then sit>supine and center self in bed. Pt had call light and all needs in reach before left. Bed alarmed. INTERNAL MEDICINE DOCTOR educated pt he is still has safest balance using FWW, little sways using SPC CGA for recovery and pt verbalized understanding to continue use of SPC. Gait Assessment Gait Gait Assistance Required: Standby Assistance,Contact Guard Assist,1 Person Assist Distance (Feet) 120 Able to Maintain Weight Bearing Status Yes During Gait Assistive Devices Assistive Device Gait Belt,Straight Cane,Front Wheeled Walker Orthotic/Prosthetic Devices or Brace: No Gait Deviations General Gait Pattern Antalgic,Decreased Stride Length,Decreased Feet Clearance,Flexed Trunk,Lateral Trunk Lean Factors Limiting Gait Function Factors Limiting Gait Function Decreased Activity Tolerance, Decreased Strength,Poor Balance,Poor Safety Awareness, Respiratory Distress Comments Gait Comments See mobility comments Stair Climbing Assessment Comments Stair Climbing Comments No stairs at home need to assess. PT-Balance Assessment Sitting Balance and Reactions Static Sitting Balance Ability Normal Dynamic Sitting Balance Ability Good Standing Balance and Reactions Static Standing Balance Ability Good Dynamic Standing Balance Ability Good Device Used FWW, Fair SPC, poor without AD Balance Tests Romberg NBOS head turns EO, 30 EC, Tandem Standing unable maintain balance semitandem w/out UE support Comments Other Balance Tests/Deviations/Treatment See mobility comments. : M5 PT-IP Objective Assessments Start: 07/20/21 08:45 Freq: NEEDED Status: Active Protocol: Document 07/20/21 11:15 AW (Rec: 07/20/21 12:53 AW [id number]) Orientation Orientation/Cognition Level of Alertness Confusional State Orientation Name,Month,Place,Situation Language Function Ability Hard of Hearing Safety Awareness Understands Safety Issues Memory Description Short Term Impaired Comments Pt incorrectly reports he has had no falls but his daughter reminds him that 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 Gross Range of Motion Lower Extremity ROM Assessment Within Functional Limits Strength Lower Extremity Strength Assessment Within Functional Limits Hip 4+/5 Knee 5/5 Ankle 5/5 Coordination Assessment Gross Coordination Gross Coordination WNL Assessment Finger to Nose Test Normal Performance Foot Tapping Test Normal Performance Sensation Assessment Sensation Gross Sensation WNL Muscle Tone Muscle Tone WNL Yes M6 PT-IP Treatment Start: 07/20/21 08:45 Freq: NEEDED Status: Active Protocol: Document 07/25/21 14:25 SP (Rec: 07/25/21 17:05 SP [id number]) Physical Therapy Treatment Education Education Provided Safety M7 PT-IP Assessment and Plan Start: 07/20/21 08:45 Freq: NEEDED Status: Active Protocol: Document 07/25/21 14:25 SP (Rec: 07/25/21 17:05 SP [id number]) PT Summary Assessment and Plan Potential Rehabilitation Potential Good Status of Condition at Evaluation Evolving Summary Impairments Balance,Gait,Activity Tolerance Progress Towards Goals Progressing Toward Goals,Slow Progress due to Medical Issues ,Slow Progress due to Activity Tolerance Assessment Summary Pt required SBA using fWW, CGA using SPC, LOB retro during semi tandem stance EO assessment Min A recovery in standing. NBOS 30 EC sways but self recovery. INTERNAL MEDICINE DOCTOR continue to recommend use of FWW and will continue to work on skilled balance assessments and progress gait toward PLOF wishes use of SPC. Pt would benefit from continued skilled therapy, recocmmending SNF upon DC to improved functional mobility before returning home. Goals Bed Mobility Goal Independent Transfer Goal Independent Gait Goal Independent,Cane Gait Distance 200 Frequency of Treatment Frequency Of Treatment Once a Day Treatment Plan Physical Therapy Treatment Plan Gait Training,Therapeutic Exercise,Balance Retraining, Discharge Planning, Neuromuscular Re-ed Other Recommendations and Next Treatment Assess vitals throughout tx HR Focus & SaO2, transfers, balance, gait FWW vs SPC. Distance gait if vitals safe. Precautions Other Precautions falls Recommendations To Nursing Amount of Assist Needed Standby Assistance,1 Person Assist Discharge Recommendations PT Discharge Recommendations SNF Rehab Other Discharge Recommendations FWW if unsafe with SPC Transportation Needs at Discharge Private Vehicle,Wheelchair/ Cabulance
[2021-07-25 14:54] LABS: COVID19 - ADMIT (NP swab/PCR) Negative (Negative)
--- NOTE | 2021-07-25 15:55 | PM.PN.1 ---
Subjective Subjective Date Patient Seen: 07/25/21 Time Patient Seen: 08:00 Interval history: Today he feels better. He feels less short of breath. He doesn't feel as weak. Exam Vital Signs (past 8 hours): - 07/25/21 08:00 07/25/21 09:36 07/25/21 12:00 Temperature 98 F 98.5 F Pulse Rate 108 H 119 H 122 H Respiratory Rate 20 24 22 Blood Pressure 119/59 L 103/57 L Pulse Oximetry 95 95 92 Oxygen Delivery Method Nasal Cannula Oxygen Flow Rate 2 Narrative Exam Narrative: GENERAL APPEARANCE: somewhat frail, elderly male in no acute distress. SKIN:scattered upper extremity bruising, no other notable lesions. LUNGS: coarse breath sound bilaterally, decreased at bases CARDIOVASCULAR: tachycardic, irregular rhythm. no m/r/g. ABDOMEN: soft, nontender, nondistended, no organomegaly MUSCULOSKELETAL: There was no tenderness or effusions noted. Muscle strength and tone were normal. EXTREMITIES: No cyanosis, clubbing or edema. NEUROLOGIC: Alert and oriented to name and place. Normal affect.? Cognitive impairment evident.? Objective Labs Result Diagrams: 07/25/21 04:35 07/25/21 04:35 Labs: Laboratory Results - last 24 hr 07/24/21 07/25/21 07/25/21 08:00 04:35 04:35 WBC 8.3 RBC 2.78 L Hgb 8.1 L Hct 25.1 L MCV 90.2 MCH 29.2 MCHC 32.3 RDW 15.5 H Plt Count 217 Sodium Potassium Chloride Carbon Dioxide BUN Creatinine Estimated GFR BUN/Creatinine Ratio Glucose Calcium Total Bilirubin 0.5 Conjugated Bilirubin 0.0 Unconjugated Bilirubin 0.4 AST 23 ALT 17 Alkaline Phosphatase 65 Total Protein 5.2 L Albumin 2.9 L Globulin 2.3 Albumin/Globulin Ratio 1.3 Procalcitonin 0.10 SARS-CoV-2 (PCR) 07/25/21 07/25/21 04:35 13:37 WBC RBC Hgb Hct MCV MCH MCHC RDW Plt Count Sodium 138 Potassium 3.5 Chloride 98 Carbon Dioxide 38 H BUN 18 Creatinine 0.75 Estimated GFR > 60.0 BUN/Creatinine Ratio 24.0 H Glucose 114 H Calcium 8.2 L Total Bilirubin Conjugated Bilirubin Unconjugated Bilirubin AST ALT Alkaline Phosphatase Total Protein Albumin Globulin Albumin/Globulin Ratio Procalcitonin SARS-CoV-2 (PCR) Negative [facility] Medical History Acquired arteriovenous malformation of stomach Aortic valvular stenosis Atrial fibrillation Atrial flutter, paroxysmal Cholelithiasis Chronic obstructive pulmonary disease Fatigue Gallstone pancreatitis Generalized anxiety disorder History of gastrointestinal hemorrhage History of tobacco abuse Hyperlipidemia Hypertension Memory loss Restrictive lung disease Rheumatoid arthritis Transient cerebral ischemia Surgical History H/O sinus surgery History of aortic valve replacement History of colonoscopy History of esophagogastroduodenoscopy (EGD) History of sinus surgery History of tonsillectomy History of tricuspid valve annuloplasty Status post mitral valve annuloplasty Family History Father Heart disease Hypertension Mother Heart disease Sister Heart disease Cancer Social History household members: none Smoking Status: Former smoker Tobacco: How many years used: 60 alcohol intake: former substance use type: does not use Assessment & Plan Assessment & Plan narrative: 1. Chronic atrial flutter/Atrial fibrillation with rapid ventricular response. -Patient with rapid AFib, suspect medication non-adherence possibly due to cognitive impairment -restarted home medications, appears slightly dehydrated and worsened anemia likely contributing. -continue home dilt and metoprolol. discussed with cardiology, recommended amiodarone loading given soft BPs. -control issues may be related to new anemia or pneumonia -TSH 1.37 -07/23 repeated amio drip with improved rate control 2. acute on chronic anemia, normocytic. - guaiac positive on rectal today. Had normal appearing stool according to nursing reports. rectal exam today with very dark material. - Hg to 6.6, given 2 U PRBC, now improved over 8 - has a history of AVM for which he is not on AC. Changed to IV PPI BID instead of PO. - surgery consult for endoscopy. found to have bleeding ulcer which was clipped 3. acute respiratory failure secondary to pneumonia vs right sided diastolic CHF -started zosyn for pneumonia, vancomycin also added given worse shortness of breath -vanco stopped, procal negative, so will stop zosyn for now, white count improved -sputum cultures showed mixed hector -CT scan showed possible consolidation, small pleural effusions, no PE -ordered for lasix given decreased RV function, and pleural effusions -wean oxygen as able -EF preserved 60-65% 4.? Essential hypertension, chronic, stable, not present on admission - continue rate control agents at this time, hold lisinopril and other medications. Blood pressures currently low-normal. 5.. Hyperlipidemia, chronic, stable, not present on admit -Will continue patient's home regimen of atorvastatin 20 mg daily. 6.? COPD with restrictive lung disease, chronic, stable, not present on image - continue home medications, albuterol standing and prn. 7. chronic cognitive impairment. ?- previous SLUMS 07/30. OT plans to repeat today as he appears much better than that currently. Code: DNR, surrogate he states is his daughter. Dispo: plan for discharge home when medically stable to snf likely on 07/26 DVT: hold lovenox given h/h drop. Time Spent With Patient Critical Care time: I spent a total of [] minutes of critical care time on this patient's care today; this time is exclusive of procedural time. Quality VTE Deep Vein Thrombosis/Pulmonary Embolism Present on Admission: No
[2021-07-25] MEDS: METOPROLOL ER 50 MG TABLET 100 MG PO (17:19)
[2021-07-25] MEDS: QUETIAPINE 25 MG TABLET 50 MG PO (21:14)
[2021-07-25] MEDS: ATORVASTATIN 20 MG TABLET PO (21:15)
[2021-07-25] MEDS: DOCUSATE 100 MG CAPSULE PO (21:15)
[2021-07-25] MEDS: MELATONIN 3 MG TABLET 6 MG PO (21:15)
[2021-07-25] MEDS: SENNOSIDES 8.6 MG TABLET 17.2 MG PO (21:15)
--- NOTE | 2021-07-25 22:33 | PC.NURSE ---
Pt transferred from ICU to the acute care tonight, alert oriented and confused at times too. Pt short of breath while in bed wih 3 L of NC. Bed alarm in placed.
[2021-07-26] VITALS (21 sets, daily range): BP systolic 101–131; BP diastolic 50–65; PULSE 83–128; RESP 16–28; TEMP 36.2–37.7; O2SAT 91–96
[2021-07-26] MEDS: ALBUTEROL 2.5 MG/3 ML NEB (ADULT) INH ×2 (03:11→03:18)
[2021-07-26 05:30] LABS: Alanine Aminotransferase 20 IU/L (<50); Albumin 3.2 g/dL (3.5-5.0); Albumin Globulin Ratio 1.2 (1.0-2.8); Alkaline Phosphatase 72 U/L (38-126); Aspartate Aminotransferase 22 IU/L (17-59); Bilirubin Total 0.3 mg/dL (0.2-1.3); Bilirubin Unconjugated 0.3 mg/dL (0.0-1.1); Globulin 2.6 g/dL (1.7-4.1); HEMOLYSIS < 15 (0-50); Total Protein 5.8 g/dL (6.3-8.2)
--- NOTE | 2021-07-26 07:41 | DI.RAD.S_ITS ---
PROCEDURE: XR CHEST 1V INDICATIONS: hypoxemia TECHNIQUE: One view of the chest was acquired. COMPARISON: [facility], CT, CT ANGIO CHEST PE PROTOCOL, 07/23/2021, 14:37. [facility], CR, XR CHEST 1V, 07/21/2021, 14:48. [facility], CR, XR CHEST 1V, 07/22/2021, 8:09. FINDINGS: Surgical changes and devices: Sternotomy wires at the qureshi he can be seen. Lungs and pleura: There is now denser focal opacity seen involving the patella laterally. Bilateral pleural effusions are seen. Generalized prominence can be seen. No large pneumothorax. There is an incomplete inspiratory result. Mediastinum: Mediastinal contours appear normal. Heart size is mildly enlarged. Atherosclerotic calcification of the aortic arch is noted. Bones and chest wall: No suspicious bony lesions. Age-appropriate bony degenerative changes are seen. Overlying soft tissues appear unremarkable. IMPRESSION: There is now seen denser focal opacity involving the right lower lung laterally. Differential diagnosis includes worsening pleural effusion versus infiltrate. Interstitial prominence is seen throughout. The interstitial prominence is nonspecific, yet may be related to pulmonary edema. Postoperative and degenerative changes are seen. Dictated by: Lyndon Carolina M.D. on 07/26/2021 at 7:50 Approved by: Lyndon Carolina M.D. on 07/26/2021 at 7:54
[2021-07-26] MEDS: ALBUTEROL/IPRATROPIUM 3 ML AMPUL INH ×4 (08:18→21:29)
--- NOTE | 2021-07-26 09:05 | PC.NURSE ---
0805-While this FIELD COURT RESEARCHER was delivering the patient his breakfast tray, he began to report feeling short of breath. This FIELD COURT RESEARCHER immediately notified JEANETTE Dominguez who checked on him. We repositioned him and she called RT. 0845-Patient up to chair with no complaints of shortness of breath. Warm blankets provided and call light is within reach.
[2021-07-26] MEDS: AMIODARONE 200 MG TABLET 400 MG PO ×2 (09:45→20:41)
[2021-07-26] MEDS: dilTIAZem CD 180 MG CAP 360 MG PO (09:45)
[2021-07-26] MEDS: FERROUS SULFATE 325 MG TABLET PO (09:45)
[2021-07-26] MEDS: DOCUSATE 100 MG CAPSULE PO ×2 (09:45→20:40)
[2021-07-26] MEDS: METOPROLOL ER 50 MG TABLET 200 MG PO (09:50)
[2021-07-26] MEDS: cefTRIAXone 1,000 MG in SODIUM CHLORIDE 0.9% 100 ML 200 ML IV (09:50)
[2021-07-26] MEDS: PANTOPRAZOLE DR 40 MG TABLET PO ×2 (09:51→20:41)
[2021-07-26] MEDS: FUROSEMIDE 40 MG/4 ML VIAL IV ×2 (09:51→19:24)
[2021-07-26] MEDS: SODIUM CHLORIDE 0.9% FLUSH 10 ML IV ×2 (09:51→20:42)
--- NOTE | 2021-07-26 10:29 | CM.DPC ---
Addendum entered by Lorrie Mercado R.N. 07/26/21 11:52: Did speak to Loida at [place], she is aware that patient is not ready today, but will plan on picker and packer at 12:30 tomorrow, unless he is not medically ready. Faxed Jen over his updated COVID results from yesterday. Original Note: DCP Cont: Spoke to Dr. Mcneil today about discharge. He indicated that patient is not yet medically ready, having increased heart rate and shortness of breath. Called BLS to cancel today's picker and packer, but asked them to keep picker and packer time for 12:30 tomorrow, if he is stable. Updated patient's daughter, Medina. Left a message with Loida at [facility]. Will attempt to call her again to ensure that she received the message. Will keep BLS paperwork over with chart. P: DCP to continue to follow. Patient is not yet medically ready for discharge, will keep picker and packer time with BLS for tomorrow at 12:30, and ensure that Jen gets the message. Lorrie Mercado RN/Circus Supervisor
--- NOTE | 2021-07-26 10:42 | PT.IPTN ---
Current Diagnoses Anemia, unspecified (07/19/21) Unspecified atrial fibrillation (07/19/21) Personal history of other diseases of the digestive system (07/19/21) Surgery Performed Operation Date: 07/22/21 17:00 Actual Procedures p Esophagogastroduodenoscopy(Not Applicable) - Michael Melgoza MD Physical Therapy Treatment Note M2 PT-IP Current Condition Start: 07/20/21 08:45 Freq: NEEDED Status: Active Protocol: Document 07/20/21 11:15 AW (Rec: 07/20/21 12:53 AW [id number]) Physical Therapy Current Condition Current Condition Evaluation Date 07/20/21 Treatment Diagnosis a fib, RVR, difficulty in walking Onset Date 07/19/21 M3 PT-IP Subjective Start: 07/20/21 08:45 Freq: NEEDED Status: Active Protocol: Document 07/26/21 10:26 CLARA (Rec: 07/26/21 10:42 LJ [id number]) Subjective Physical Therapy Visit Type Type Treatment Note Visit Start Time 09:59 Visit Stop Time 10:19 Total Visit Minutes 20 Notes Vitals seated HR 127, O2 on 2L 97% seated ambulation HR 129, O2 94% nurse in room giving heart meds Physical Therapy Visit Comments Patient Comments Pt willing to work with therapy. Patient Goals wanting to know when he is going to rehab Therapy Pain Assessment Pain Present Pain Present Denied Pain M4 PT-IP Mobility and Gait Start: 07/20/21 08:45 Freq: NEEDED Status: Active Protocol: Document 07/26/21 10:26 CLARA (Rec: 07/26/21 10:42 LJ [id number]) PT-Transfer Assessment Sit to and From Stand Sit to and from Stand Standby Assistance,Use of Upper Extremities Equipment Transfer Assistive Device Gait Belt,Front Wheeled Walker Orthotic/Prosthetic Devices or Brace: No Transfers Transfer Destination Bed Transfer Technique ambulated in room using FWW Transfer Ability Level of Assist Standby Assistance,Contact Guard Assistance,Use of Upper Extremities Comments Mobility Comments Pt seated in chair receiving meds from nurse. Pt stood to change briefs then sat again for brief rest before therapy treatment. Pt seated HR 127, O2 98%. during ambulation around room x2 HR 129 O2 94%. Pt mostly carried FWW for first 20 out of `100 feet of ambulation then put it on floor for the rest of gait trainning and used it properly . No LOB but pt stated he needed to sit down to rest because his legs were tired and felt very weak. Pt preferred to use FWW for ambulation in room. Gait Assessment Gait Gait Assistance Required: Standby Assistance,Contact Guard Assist,1 Person Assist Distance (Feet) 100 Able to Maintain Weight Bearing Status Yes During Gait Assistive Devices Assistive Device Gait Belt,Straight Cane,Front Wheeled Walker Orthotic/Prosthetic Devices or Brace: No Gait Deviations General Gait Pattern Decreased Stride Length, Decreased Feet Clearance Factors Limiting Gait Function Factors Limiting Gait Function Decreased Activity Tolerance, Decreased Strength,Poor Balance,Poor Safety Awareness, Respiratory Distress Comments Gait Comments see mobility comments Stair Climbing Assessment Comments Stair Climbing Comments No stairs at home need to assess. M5 PT-IP Objective Assessments Start: 07/20/21 08:45 Freq: NEEDED Status: Active Protocol: Document 07/20/21 11:15 AW (Rec: 07/20/21 12:53 AW [id number]) Orientation Orientation/Cognition Level of Alertness Confusional State Orientation Name,Month,Place,Situation Language Function Ability Hard of Hearing Safety Awareness Understands Safety Issues Memory Description Short Term Impaired Comments Pt incorrectly reports he has had no falls but his daughter reminds him that 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 Gross Range of Motion Lower Extremity ROM Assessment Within Functional Limits Strength Lower Extremity Strength Assessment Within Functional Limits Hip 4+/5 Knee 5/5 Ankle 5/5 Coordination Assessment Gross Coordination Gross Coordination WNL Assessment Finger to Nose Test Normal Performance Foot Tapping Test Normal Performance Sensation Assessment Sensation Gross Sensation WNL Muscle Tone Muscle Tone WNL Yes M6 PT-IP Treatment Start: 07/20/21 08:45 Freq: NEEDED Status: Active Protocol: Document 07/26/21 10:26 LJ (Rec: 07/26/21 10:42 LJ [id number]) Physical Therapy Treatment Education Education Provided Safety M7 PT-IP Assessment and Plan Start: 07/20/21 08:45 Freq: NEEDED Status: Active Protocol: Document 07/26/21 10:26 LJ (Rec: 07/26/21 10:42 LJ [id number]) PT Summary Assessment and Plan Potential Rehabilitation Potential Good Status of Condition at Evaluation Evolving Summary Impairments Balance,Gait,Activity Tolerance Progress Towards Goals Progressing Toward Goals,Slow Progress due to Medical Issues ,Slow Progress due to Activity Tolerance Assessment Summary Pt requiring SBA and assist with O2 line using FWW in room . He did not experience any LOB with FWW. Did not use SPC during tx. Pt will benefit from SNF to improve activity tolerance, strength, and balance training to be safe to return home to independent living. Goals Bed Mobility Goal Independent Transfer Goal Independent Gait Goal Independent,Cane Gait Distance 200 Frequency of Treatment Frequency Of Treatment Once a Day Treatment Plan Physical Therapy Treatment Plan Gait Training,Therapeutic Exercise,Balance Retraining, Discharge Planning, Neuromuscular Re-ed Other Recommendations and Next Treatment Assess vitals throughout tx HR Focus & SaO2, transfers, balance, gait FWW vs SPC. Distance gait if vitals safe. Precautions Other Precautions falls Recommendations To Nursing Amount of Assist Needed Standby Assistance,1 Person Assist Discharge Recommendations PT Discharge Recommendations SNF Rehab Other Discharge Recommendations FWW if unsafe with SPC Transportation Needs at Discharge Private Vehicle,Wheelchair/ Cabulance
[2021-07-26 11:25] LABS: Hematocrit 26.8 % (41-53); Hemoglobin 8.5 g/dL (13.5-17.5); Mean Corpuscular HGB Conc 31.8 % (30-36); Mean Corpuscular Hemoglobin 28.7 PG (26-34); Mean Corpuscular Volume 90.2 fL (80-100); Platelet Count 282 X10^3/uL (150-400); Red Blood Cell Count 2.97 X10^6/uL (4.5-5.9); Red Cell Distribution Width 15.2 % (11.6-14.8); White Blood Cell Count 8.6 X10^3/uL (4.5-11.0)
[2021-07-26] MEDS: ACETAMINOPHEN 325 MG TABLET 650 MG PO ×2 (12:38→20:41)
--- NOTE | 2021-07-26 16:07 | P.PN_ITS ---
Subjective Subjective Date Patient Seen: 07/26/21 Time Patient Seen: 08:00 Interval history: This morning he felt more short of breath. Chest xray was done which showed increased fluid in the lungs. He was given IV lasix. He felt somewhat improved after this. Exam Vital Signs (past 8 hours): - 07/26/21 08:20 07/26/21 09:00 07/26/21 09:50 Temperature Pulse Rate 109 H 128 H Respiratory Rate 28 H Blood Pressure 112/56 L Pulse Oximetry 91 94 07/26/21 11:13 07/26/21 11:35 07/26/21 12:19 Temperature 97.6 F Pulse Rate 117 H 100 H 104 H Respiratory Rate 22 18 Blood Pressure 107/63 101/53 L Pulse Oximetry 94 96 07/26/21 13:00 07/26/21 15:10 Temperature 98.1 F Pulse Rate 83 Respiratory Rate 19 Blood Pressure 111/50 L Pulse Oximetry 91 94 Oxygen Delivery Method Nasal Cannula Oxygen Flow Rate 2 Narrative Exam Narrative: GENERAL APPEARANCE: somewhat frail, elderly male in no acute distress. SKIN:scattered upper extremity bruising, no other notable lesions. LUNGS: coarse breath sound bilaterally, decreased at bases with crackles CARDIOVASCULAR: tachycardic, irregular rhythm. no m/r/g. ABDOMEN: soft, nontender, nondistended, no organomegaly MUSCULOSKELETAL: There was no tenderness or effusions noted. Muscle strength and tone were normal. EXTREMITIES: No cyanosis, clubbing or edema. NEUROLOGIC: Alert and oriented to name and place. Normal affect. Cognitive impairment evident. Objective Labs Result Diagrams: 07/26/21 11:16 07/25/21 04:35 Labs: Laboratory Results - last 24 hr 07/26/21 07/26/21 05:05 11:16 WBC 8.6 RBC 2.97 L Hgb 8.5 L Hct 26.8 L MCV 90.2 MCH 28.7 MCHC 31.8 RDW 15.2 H Plt Count 282 Total Bilirubin 0.3 Conjugated Bilirubin 0.0 Unconjugated Bilirubin 0.3 AST 22 ALT 20 Alkaline Phosphatase 72 Total Protein 5.8 L Albumin 3.2 L Globulin 2.6 Albumin/Globulin Ratio 1.2 [facility]LY [facility] Medical History Acquired arteriovenous malformation of stomach Aortic valvular stenosis Atrial fibrillation Atrial flutter, paroxysmal Cholelithiasis Chronic obstructive pulmonary disease Fatigue Gallstone pancreatitis Generalized anxiety disorder History of gastrointestinal hemorrhage History of tobacco abuse Hyperlipidemia Hypertension Memory loss Restrictive lung disease Rheumatoid arthritis Transient cerebral ischemia Surgical History H/O sinus surgery History of aortic valve replacement History of colonoscopy History of esophagogastroduodenoscopy (EGD) History of sinus surgery History of tonsillectomy History of tricuspid valve annuloplasty Status post mitral valve annuloplasty Family History Father Heart disease Hypertension Mother Heart disease Sister Heart disease Cancer Social History household members: none Smoking Status: Former smoker Tobacco: How many years used: 60 alcohol intake: former substance use type: does not use Assessment & Plan Assessment & Plan narrative: 1. Chronic atrial flutter/Atrial fibrillation with rapid ventricular response. -Patient presented with rapid AFib, initially suspected medication non-adherence possibly due to cognitive impairment -restarting home meds did not control rate, amio loaded was done -amio initially did not control rate, digoxin was then attempted with no benefit -patient then reloaded with amio with improvement in rate -did have CHF, pneumonia, and anemia from bleeding that increased tachycardia -TSH 1.37 2. acute on chronic anemia, normocytic. - guaiac positive on rectal. then followed with melena - Hg to 6.6, given 2 U PRBC, now improved over 8 - has a history of AVM for which he is not on AC. Changed to IV PPI BID instead of PO. - surgery consult for endoscopy. found to have bleeding ulcer which was clipped with no further evidence of bleeding and stable hemoglobin 3. acute respiratory failure secondary to pneumonia vs right sided diastolic CHF -started zosyn for pneumonia, vancomycin also added given worse shortness of breath -vanco stopped, procal negative, so will stop zosyn for now, white count improved -sputum cultures showed mixed hector -CT scan showed possible consolidation, small pleural effusions, no PE -ordered for lasix given decreased RV function, and pleural effusions -wean oxygen as able -EF preserved 60-65% 4. Essential hypertension, chronic, stable, not present on admission - continue rate control agents at this time, hold lisinopril and other medications. Blood pressures currently low-normal. 5.. Hyperlipidemia, chronic, stable, not present on admit -Will continue patient's home regimen of atorvastatin 20 mg daily. 6. COPD with restrictive lung disease, chronic, stable, not present on image - continue home medications, albuterol standing and prn. 7. chronic cognitive impairment. - previous SLUMS 07/30. OT plans to repeat today as he appears much better than that currently. Code: DNR, surrogate he states is his daughter. Dispo: plan for discharge home when medically stable to snf likely on 07/26 DVT: hold lovenox given h/h drop. Time Spent With Patient Critical Care time: I spent a total of [] minutes of critical care time on this patient's care today; this time is exclusive of procedural time. Quality VTE Deep Vein Thrombosis/Pulmonary Embolism Present on Admission: No
[2021-07-26] MEDS: METOPROLOL ER 50 MG TABLET 100 MG PO (17:29)
[2021-07-26] MEDS: SENNOSIDES 8.6 MG TABLET 17.2 MG PO (20:40)
[2021-07-26] MEDS: ATORVASTATIN 20 MG TABLET PO (20:40)
[2021-07-26] MEDS: QUETIAPINE 25 MG TABLET 50 MG PO (20:40)
[2021-07-26] MEDS: MELATONIN 3 MG TABLET 6 MG PO (20:41)
[2021-07-27] VITALS (23 sets, daily range): BP systolic 99–136; BP diastolic 48–76; PULSE 55–125; RESP 16–20; TEMP 36.1–36.7; O2SAT 85–98
[2021-07-27] MEDS: ALBUTEROL/IPRATROPIUM 3 ML AMPUL INH ×5 (05:38→22:59)
[2021-07-27] MEDS: DOCUSATE 100 MG CAPSULE PO ×2 (08:39→20:11)
[2021-07-27] MEDS: dilTIAZem CD 180 MG CAP 360 MG PO (08:39)
[2021-07-27] MEDS: METOPROLOL ER 50 MG TABLET 200 MG PO (08:39)
[2021-07-27] MEDS: AMIODARONE 200 MG TABLET 400 MG PO ×2 (08:44→20:12)
[2021-07-27] MEDS: PANTOPRAZOLE DR 40 MG TABLET PO ×2 (08:45→20:11)
[2021-07-27] MEDS: FERROUS SULFATE 325 MG TABLET PO (08:45)
[2021-07-27] MEDS: FUROSEMIDE 40 MG/4 ML VIAL IV (08:53)
[2021-07-27] MEDS: SODIUM CHLORIDE 0.9% FLUSH 10 ML IV ×2 (08:53→20:13)
[2021-07-27] MEDS: cefTRIAXone 1,000 MG in SODIUM CHLORIDE 0.9% 100 ML 200 ML IV (09:02)
--- NOTE | 2021-07-27 10:38 | OT.IP.TRT ---
Current Diagnoses Anemia, unspecified (07/19/21) Unspecified atrial fibrillation (07/19/21) Personal history of other diseases of the digestive system (07/19/21) Surgery Performed Operation Date: 07/22/21 17:00 Actual Procedures p Esophagogastroduodenoscopy(Not Applicable) - Michael Melgoza MD Occupational Therapy Treatment Note M2 OT-IP Current Condition Start: 07/20/21 11:30 Freq: Status: Active Protocol: Document 07/20/21 11:30 CGR (Rec: 07/20/21 11:40 CGR [id number]) Occupational Therapy Current Condition Current Condition Evaluation Date 07/20/21 Treatment Diagnosis Afib with RVR Diagnosis Onset Date 07/19/21 M3 OT- IP Subjective and Pain Start: 07/20/21 11:30 Freq: Status: Active Protocol: Document 07/27/21 10:31 CGR (Rec: 07/27/21 10:37 CGR [id number]) OT- Subjective Occupational Therapy Visit Type Type Administrative Note Notes Chart reviewed and discussed with MD. Pt's HR currently 124 . requests that we hold till pts HR is consistently under 120. Will hold today.
[2021-07-27] MEDS: ACETAMINOPHEN 325 MG TABLET 650 MG PO ×2 (13:48→20:12)
--- NOTE | 2021-07-27 14:18 | CM.DPC ---
DCP Cont: Per MD, pt continues to be tachy with uncontrolled heart rate and even after morning meds provided pt still unstable to d/c to SNF today. KRISTINA Dumont kindly called Ambulance and cancelled BLS transport today and called [facility] admissions with update on pt not discharging. MD consulted Cardiology and decision made to attempt Digitocin today and if pt's heart rate still not controlled then recommendation is hospital transfer for PaceMaker placement. SW called [facility] admissions back with this information and will fax updated MD note from today and they will continue to follow. Plan: SW to follow closely to determine if pt will need hospital transfer for pacemaker vs d/c to [facility] SNF before safe return home. DORON Bacon
--- NOTE | 2021-07-27 16:33 | PM.PN.1 ---
Subjective Subjective Interval history: The Patient is an 85 y/o male admitted with AFIB/AFlutter with RVR. Patient has had difficult to control heart rate. He is now on multiple medications to include Amiodarone, Metoprolol, Cardizem. This morning his heart rate was 122, and up to 145 with PT. He was hypoxic requiring 4 liters of oxygen with activity. Subsequently his heart rate improved to 61. Exam Vital Signs (past 8 hours): - 07/27/21 08:39 07/27/21 09:00 07/27/21 09:40 Temperature Pulse Rate 123 H 125 H Respiratory Rate Blood Pressure 108/58 L Pulse Oximetry 94 07/27/21 10:37 07/27/21 11:10 07/27/21 13:00 Temperature 97.4 F L Pulse Rate 123 H 121 H Respiratory Rate 18 16 Blood Pressure 113/55 L Pulse Oximetry 94 92 91 07/27/21 14:00 07/27/21 14:58 07/27/21 15:35 Temperature 97.6 F Pulse Rate 61 108 H 71 Respiratory Rate 18 18 Blood Pressure 109/49 L Pulse Oximetry 94 91 07/27/21 16:25 Temperature 96.9 F L Pulse Rate 65 Respiratory Rate 16 Blood Pressure 136/70 Pulse Oximetry 98 Oxygen Delivery Method Room Air Oxygen Flow Rate 0 Narrative Exam Narrative: pleasant gentleman lying in bed tachycardic but without complaints Resp Other: Lungs: clear to auscultation Cardio Other: Tachycardic irregularly, irregular nl Sl S2 GI Other: abd: soft/ non tender/ non distended Extrem Other: no edema Objective Labs Result Diagrams: 07/26/21 11:16 07/25/21 04:35 [facility] Medical History Acquired arteriovenous malformation of stomach Aortic valvular stenosis Atrial fibrillation Atrial flutter, paroxysmal Cholelithiasis Chronic obstructive pulmonary disease Fatigue Gallstone pancreatitis Generalized anxiety disorder History of gastrointestinal hemorrhage History of tobacco abuse Hyperlipidemia Hypertension Memory loss Restrictive lung disease Rheumatoid arthritis Transient cerebral ischemia Surgical History H/O sinus surgery History of aortic valve replacement History of colonoscopy History of esophagogastroduodenoscopy (EGD) History of sinus surgery History of tonsillectomy History of tricuspid valve annuloplasty Status post mitral valve annuloplasty Family History Father Heart disease Hypertension Mother Heart disease Sister Heart disease Cancer Social History household members: none Smoking Status: Former smoker Tobacco: How many years used: 60 alcohol intake: former substance use type: does not use Assessment & Plan Assessment & Plan narrative: Chronic atrial flutter/Atrial fibrillation with rapid ventricular response. -Patient presented with rapid AFib, initially suspected medication non-adherence possibly due to cognitive impairment -restarting home meds did not control rate, amio loaded was done -amio initially did not control rate, digoxin was then attempted with no benefit -patient then reloaded with amio with improvement in rate -did have CHF, pneumonia, and anemia from bleeding that increased tachycardia -TSH 1.37 -heart rate currently controlled, he was tachycardic earlier, D/C cardiology who recommended adding back digoxin for rate control if needed -IF patient is unable to be managed with digoxin, he will need ablation +/-pacemaker -will observe for 24 hours, once rate maintains less than 110, patient ready for d/c to SNF as he requested 2. acute on chronic anemia, normocytic. - guaiac positive on rectal. then followed with melena - Hg to 6.6, given 2 U PRBC, now improved over 8 - has a history of AVM for which he is not on AC. Changed to IV PPI BID instead of PO. - surgery consult for endoscopy. found to have bleeding ulcer which was clipped with no further evidence of bleeding and stable hemoglobin 3. acute respiratory failure secondary to pneumonia vs right sided diastolic CHF -started zosyn for pneumonia, vancomycin also added given worse shortness of breath -vanco stopped, procal negative, so will stop zosyn for now, white count improved -sputum cultures showed mixed hector -CT scan showed possible consolidation, small pleural effusions, no PE -ordered for lasix given decreased RV function, and pleural effusions -wean oxygen as able -EF preserved 60-65% 4.? Essential hypertension, chronic, stable, not present on admission - continue rate control agents at this time, hold lisinopril and other medications. Blood pressures currently low-normal. 5.. Hyperlipidemia, chronic, stable, not present on admit -Will continue patient's home regimen of atorvastatin 20 mg daily. 6.? COPD with restrictive lung disease, chronic, stable, not present on image - continue home medications, albuterol standing and prn. 7. chronic cognitive impairment. ?- previous SLUMS 07/30. OT plans to repeat today as he appears much better than that currently. Code: DNR, surrogate he states is his daughter. Time Spent With Patient Critical Care time: I spent a total of [] minutes of critical care time on this patient's care today; this time is exclusive of procedural time. Quality VTE Deep Vein Thrombosis/Pulmonary Embolism Present on Admission: No
[2021-07-27] MEDS: METOPROLOL ER 50 MG TABLET 100 MG PO (17:30)
[2021-07-27] MEDS: MELATONIN 3 MG TABLET 6 MG PO (20:11)
[2021-07-27] MEDS: ATORVASTATIN 20 MG TABLET PO (20:12)
[2021-07-27] MEDS: QUETIAPINE 25 MG TABLET 50 MG PO (20:12)
[2021-07-27] MEDS: SENNOSIDES 8.6 MG TABLET 17.2 MG PO (20:24)
[2021-07-28] VITALS (12 sets, daily range): BP systolic 99–108; BP diastolic 55–65; PULSE 63–124; RESP 17–28; TEMP 36.2–36.7; O2SAT 91–96
--- NOTE | 2021-07-28 04:42 | PC.NURSE ---
Pt is A and O x 4, forgetful and impulsive at times. HR irr irr, NSR on tele. LS congested throughout. 2L NC to stay above 92%. +BTs, voiding qs clear yellow.
[2021-07-28 05:33] LABS: Hematocrit 25.7 % (41-53); Hemoglobin 8.3 g/dL (13.5-17.5)
[2021-07-28 05:42] LABS: BUN Creatinine Ratio 18.6 (6-22); Blood Urea Nitrogen 16 mg/dL (9-20); Calcium 8.5 mg/dL (8.4-10.2); Chloride 96 mmol/L (98-107); Estimated Glomerular Filt Rate > 60.0 mL/min (>60); Glucose 103 mg/dL (80-110); HEMOLYSIS < 15 (0-50); Potassium 3.6 mmol/L (3.4-5.1); Sodium 139 mmol/L (137-145)
[2021-07-28 05:50] LABS: NT-proBNP (BNP-Adult 18+) 3020 pg/mL (<450)
[2021-07-28 05:55] LABS: Carbon Dioxide 42 mmol/L (22-32)
--- NOTE | 2021-07-28 06:11 | PC.NURSE ---
Critical Lab value CO2 = 42. RESTAURANT GREETER Raheem aware. RT Arnett advised.
[2021-07-28] MEDS: ALBUTEROL/IPRATROPIUM 3 ML AMPUL INH (06:29)
[2021-07-28] MEDS: FUROSEMIDE 40 MG/4 ML VIAL IV (08:39)
[2021-07-28] MEDS: METOPROLOL ER 50 MG TABLET 200 MG PO (08:39)
[2021-07-28] MEDS: DOCUSATE 100 MG CAPSULE PO (08:40)
[2021-07-28] MEDS: dilTIAZem CD 180 MG CAP 360 MG PO (08:40)
[2021-07-28] MEDS: AMIODARONE 200 MG TABLET 400 MG PO (08:40)
[2021-07-28] MEDS: FERROUS SULFATE 325 MG TABLET PO (08:40)
[2021-07-28] MEDS: FUROSEMIDE 20 MG TABLET PO (08:40)
[2021-07-28] MEDS: PANTOPRAZOLE DR 40 MG TABLET PO (08:40)
[2021-07-28] MEDS: SODIUM CHLORIDE 0.9% FLUSH 10 ML IV (08:41)
--- NOTE | 2021-07-28 08:59 | PT.IPTN ---
Current Diagnoses Anemia, unspecified (07/19/21) Unspecified atrial fibrillation (07/19/21) Personal history of other diseases of the digestive system (07/19/21) Surgery Performed Operation Date: 07/22/21 17:00 Actual Procedures p Esophagogastroduodenoscopy(Not Applicable) - Michael Melgoza MD Physical Therapy Treatment Note M2 PT-IP Current Condition Start: 07/20/21 08:45 Freq: NEEDED Status: Active Protocol: Document 07/20/21 11:15 AW (Rec: 07/20/21 12:53 AW [id number]) Physical Therapy Current Condition Current Condition Evaluation Date 07/20/21 Treatment Diagnosis a fib, RVR, difficulty in walking Onset Date 07/19/21 M3 PT-IP Subjective Start: 07/20/21 08:45 Freq: NEEDED Status: Active Protocol: Document 07/28/21 08:38 SP (Rec: 07/28/21 11:57 SP [id number]) Subjective Physical Therapy Visit Type Type Treatment Note Visit Start Time 08:38 Visit Stop Time 08:59 Total Visit Minutes 21 Notes Vitals taken during tx: seated in chair after use of bathroom and wash hands at sink: BP 120/70 HR 123 bpm SaO2 93% on RA (+ SOB). Seated 2 min rest: HR 120bpm SaO2 96% on RA with ed slow pursed lip breath. Seated post gait in room: HR 121 bpm SaO2 98% on 2L per nursing request provide supplimental O2. Number of CLAY ROASTER Visits 6 Physical Therapy Visit Comments Patient Comments Pt willing to work with therapy. Patient Goals In agreement go to rehab to get stronger before going home . Therapy Pain Assessment Pain Present Pain Present Denied Pain M4 PT-IP Mobility and Gait Start: 07/20/21 08:45 Freq: NEEDED Status: Active Protocol: Document 07/28/21 08:38 SP (Rec: 07/28/21 11:57 SP [id number]) PT-Transfer Assessment Sit to and From Stand Sit to and from Stand Standby Assistance,Use of Upper Extremities Equipment Transfer Assistive Device Gait Belt,Front Wheeled Walker Orthotic/Prosthetic Devices or Brace: No Transfers Transfer Destination Chair,Toilet Transfer Technique ambulated in room using FWW Transfer Ability Level of Assist Standby Assistance,Contact Guard Assistance,Use of Upper Extremities Comments Mobility Comments Pt was seated on toilet with call light in reach, nurse stated providing visual awareness of pt needs of call light when arrived. Pt agreed for CLAY ROASTER take over care. CLAY ROASTER noted slight SOB SaO2 93% on RA. Pt able to complete lrg BM and self pericare needs in sitting, reported to nursing. Pt completed sit>stand w/ use of wall grab bar and other UE on FWW. Pt demonstrated little unsteady on BLE and UE usign FWW provided CGA during gait bathroom to sink to wash hands 10 ft. Pt able to wash hands with light contact 1 UE on sink for stability. Pt demonstrated + SOB, no supplimental O2 donned (has previously in ICU). When nurse entered room, suggested pt use of O2 during mobility to assist decrease SOB with nurse confirmed will carryover. CLAY ROASTER educated low mobility with slow breath to allow improvement in breath rate. Pt returned to chair 5 ft using fWW CG> SBA and good pivot, fWW reposition mgt back up to chair and hand placement descent into chair sBA. Assessed vitals with elevated HR 123 bpm and provided O2 2 L and continued ed for slow breath, improved lower HR 120, increase SaO2 98% and lowered breath rate. Pt requested to walk in room to continue to get stronger, feels so weak. sit>stand, ambulated around room and back go chair 15 ft using FWW, CG>SBA with assist for [id number] mgt. Pt maintained Mid- high 90s SaO2, HR 120- 121bpm during mobility. Pt retured to chair. He had all needs in reach, self elevated leg in chair. Chair alarm donned. CLAY ROASTER educated to continue to use FWW at this time for stability and proper breath/ pacing gait with agreement. Will continue to assess. Gait Assessment Gait Gait Assistance Required: Standby Assistance,Contact Guard Assist,1 Person Assist Distance (Feet) 15 Able to Maintain Weight Bearing Status Yes During Gait Assistive Devices Assistive Device Gait Belt,Front Wheeled Walker Orthotic/Prosthetic Devices or Brace: No Gait Deviations General Gait Pattern Antalgic,Decreased Stride Length,Decreased Feet Clearance Factors Limiting Gait Function Factors Limiting Gait Function Decreased Activity Tolerance, Decreased Strength,Poor Balance,Poor Safety Awareness, Respiratory Distress Comments Gait Comments see mobility comments Stair Climbing Assessment Comments Stair Climbing Comments No stairs at home need to assess. PT-Balance Assessment Sitting Balance and Reactions Static Sitting Balance Ability Normal Dynamic Sitting Balance Ability Good Standing Balance and Reactions Static Standing Balance Ability Fair Dynamic Standing Balance Ability Fair Device Used FWW Comments Other Balance Tests/Deviations/Treatment See mobility comments. : M5 PT-IP Objective Assessments Start: 07/20/21 08:45 Freq: NEEDED Status: Active Protocol: Document 07/20/21 11:15 AW (Rec: 07/20/21 12:53 AW [id number]) Orientation Orientation/Cognition Level of Alertness Confusional State Orientation Name,Month,Place,Situation Language Function Ability Hard of Hearing Safety Awareness Understands Safety Issues Memory Description Short Term Impaired Comments Pt incorrectly reports he has had no falls but his daughter reminds him that 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 Gross Range of Motion Lower Extremity ROM Assessment Within Functional Limits Strength Lower Extremity Strength Assessment Within Functional Limits Hip 4+/5 Knee 5/5 Ankle 5/5 Coordination Assessment Gross Coordination Gross Coordination WNL Assessment Finger to Nose Test Normal Performance Foot Tapping Test Normal Performance Sensation Assessment Sensation Gross Sensation WNL Muscle Tone Muscle Tone WNL Yes M6 PT-IP Treatment Start: 07/20/21 08:45 Freq: NEEDED Status: Active Protocol: Document 07/28/21 08:38 SP (Rec: 07/28/21 11:57 SP [id number]) Physical Therapy Treatment Education Education Provided Safety Other Treatments Other Treatment Performed Education on pursed lip breath and slower mobility usign FWW pacing for energy conservation. M7 PT-IP Assessment and Plan Start: 07/20/21 08:45 Freq: NEEDED Status: Active Protocol: Document 07/28/21 08:38 SP (Rec: 07/28/21 11:57 SP [id number]) PT Summary Assessment and Plan Potential Rehabilitation Potential Good Status of Condition at Evaluation Evolving Summary Impairments Balance,Gait,Activity Tolerance Progress Towards Goals Progressing Toward Goals,Slow Progress due to Medical Issues ,Slow Progress due to Activity Tolerance Assessment Summary Pt requiring CG-SBA and assist unsteady on feet. CLAY ROASTER suggested nursing continue supplimental O2 and education pt on breath during mobilityin room for decrease SOB. He did not experience any LOB with FWW. Did not use SPC during tx due to unsteady using fWW this tx. Pt will benefit from SNF to improve activity tolerance, strength, and balance training to be safe to return home to independent living. Goals Bed Mobility Goal Independent Transfer Goal Independent Gait Goal Independent,Cane Gait Distance 200 Frequency of Treatment Frequency Of Treatment Once a Day Treatment Plan Physical Therapy Treatment Plan Gait Training,Therapeutic Exercise,Balance Retraining, Discharge Planning, Neuromuscular Re-ed Other Recommendations and Next Treatment Assess vitals throughout tx HR Focus & SaO2, transfers, balance, gait FWW vs SPC. Distance gait if vitals safe. Precautions Other Precautions falls Recommendations To Nursing Amount of Assist Needed 1 Person Assist Discharge Recommendations PT Discharge Recommendations SNF Rehab Other Discharge Recommendations FWW if unsafe with SPC Transportation Needs at Discharge Private Vehicle,Wheelchair/ Cabulance
--- NOTE | 2021-07-28 09:31 | CM.DPNOTE ---
Called [facility] to set up 1400 picking tech today to Jen. Also sent H&P at [facility]'s request to Jen ACEVEDO. Julia Cui CM Asst.
--- NOTE | 2021-07-28 10:10 | OT.IP.TRT ---
Current Diagnoses Anemia, unspecified (07/19/21) Unspecified atrial fibrillation (07/19/21) Personal history of other diseases of the digestive system (07/19/21) Surgery Performed Operation Date: 07/22/21 17:00 Actual Procedures p Esophagogastroduodenoscopy(Not Applicable) - Michael Melgoza MD Occupational Therapy Treatment Note M2 OT-IP Current Condition Start: 07/20/21 11:30 Freq: Status: Active Protocol: Document 07/20/21 11:30 CGR (Rec: 07/20/21 11:40 CGR [id number]) Occupational Therapy Current Condition Current Condition Evaluation Date 07/20/21 Treatment Diagnosis Afib with RVR Diagnosis Onset Date 07/19/21 M3 OT- IP Subjective and Pain Start: 07/20/21 11:30 Freq: Status: Active Protocol: Document 07/28/21 10:14 CCC (Rec: 07/28/21 10:27 [facility] [id number]) OT- Subjective Occupational Therapy Visit Type Type Treatment Note Visit Start Time 09:45 Visit Stop Time 10:10 Total Visit Minutes 25 Occupational Therapy Visit Comments Patient Comments Pt agreed to re do SLUMS and work with OT while just seated as pt's HR while seated still 125. Patient/Caregiver Goals To go to skilled rehab. OT Pain Assessment Pain When Pain Assessed At Rest Pain Present Pain Present Denied Pain . M6 OT- IP Functional Cognition Start: 07/20/21 11:30 Freq: Status: Active Protocol: Document 07/28/21 10:14 CCC (Rec: 07/28/21 10:27 [facility] [id number]) Cognitive Factors Limiting Selfcare Function Cognitive Ability Level of Alertness Alert Patient Orientation Name,Age,Year,Place,Situation Attention Span Ability Capable of Focused Attention, Capable of Sustained Attention Ability to Follow Commands Able to Follow One Step Commands Memory Description Short Term Impaired Cognitive Comments Cognitive Assessment Comments Tired to redo SLUMS however due to pt's decreased short term memory pt getting a little frustrated and did not complete the SLUMS. Pt's score most likely will not be better than the than pt did on 07/21/21. Able to talk to pt in length of regarding memory strategies. Pt states has a set routine, writes things down immediately otherwise her forgets. Pt on 2L of O2 and states took it off at night yesterday and educated pt to be sure to have O2 on at night. Re- educated pt how to use the spirometer. M9 OT- IP Assessment and Plan Start: 07/20/21 11:30 Freq: Status: Active Protocol: Document 07/28/21 10:14 [facility] (Rec: 07/28/21 10:27 [facility] [id number]) OT Summary Assessment and Plan Potential Rehabilitation Potential Good Analytic Complexity at Evaluation Moderate Summary OT Impairments Balance,Functional Cognition, Functional Mobility,Dressing, Toileting,Bathing,Activity Tolerance Progress Towards Goals Slow Progress due to Medical Issues Assessment Summary Pt looking to go to skilled rehab when medically stable. Pt continues to have increased HR at rest. Pt on 2L of O2 and at 96% hr 125 and on RA 93-95% after 5 minutes and HR 123-125 and O2 replaced on 2L and pt states feeling better and o2 reading at 98% and hr 122. Stressed the importance that pt should not take his O2 off at night, as pt states did so last night. Goals Grooming Goal Independent Dressing Goal Independent Toileting Goal Independent Bathing Goal Independent Toilet Transfer Goal Independent Shower Transfer Goal Independent Days to Meet Goals 8 Frequency of Treatment Frequency Of Treatment Once a Day Treatment Plan OT Treatment Plan ADL Training,Functional Cognition Training,Functional Mobility,Patient/Family Education,Discharge Planning Discharge Recommendations OT Discharge Recommendations SNF Rehab Transportation Needs at Discharge Wheelchair/Cabulance
--- NOTE | 2021-07-28 10:42 | CM.DPC ---
Addendum entered by DORON Bacon 07/28/21 13:54: ADD: Per RN and MD, pt's heart rate has now been around 70 after the Digitocin and stable enough for d/c via BLS to SNF. SW updated [facility] and gathered d/c packet of PASRR, signed med rec, script, d/c summ, GALO koroma MD orders and KRISTINA Dumont kindly faxed to [facility] to review. SW called pt's Dtr Medina and updated on d/c plans for 1400 via BLS to [facility] and she is still very agreeable and packed a bag for pt at SNF. SW updated SENIOR CLINICAL STUDY MANAGER and potato chip processing supervisor and RN who is getting pt ready for d/c and will call report. Plan: Patient to d/c to [facility] SNF [facility] due to oxygen and heart rate issues around 1400. BF Original Note: DCP Cont/Possible SNF d/c Per MD, pt's heart rate dropped to 65 overnight and was stable and therefore the Digitocin was not started but pt's rate increased this morning and Lasiks helping reduce his rate and Digitocin started and anticipate stability for d/c to SNF this afternoon. KRISTINA Dumont kindly set up BLS transport due to pt's need for cardiac monitoring for 1400 today. SW called [facility] admissions and updated and they confirm that they can accept pt this afternoon. Plan: SW to follow closely for pt's heart rate to be controlled for plan of d/c to SNF at 1400 and to fax d/c packet to [facility] to review. DORON Bacon
[2021-07-28] MEDS: DIGOXIN 500 MCG/2 ML AMPUL 125 MCG IV (10:46)
[2021-07-28] MEDS: ACETAMINOPHEN 325 MG TABLET 650 MG PO (10:47)
--- NOTE | 2021-07-28 13:02 | PC.NURSE ---
Pt heart rate per tele is 66. Digoxin effective. Discharge plan for transfer to [place]. Dr Porter writing discharge orders.
--- NOTE | 2021-07-28 13:15 | P.DS_ITS ---
History of Present Illness History of Present Illness Chief complaint: not feeling well/tachy for ems Narrative: Mr. 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 He states he felt off for the past few days. Admits to some mild shortness of breath, palpitations and weakness. Denies any melena or BRBPR. Denies fever, cough, LE swelling, abdominal pain, nausea, vomiting, dysuria or urinary frequency. In the emergency room, patient was in afib/flutter with RVR with a rate in the 140s, hypotensive slightly after labetalol. He was started on gentle IV fluids. Labs were notable for a mild leukocytosis with WBC 14, slight worsening of his anemia with a hemoglobin of 9.2, glucose of 205, proBNP of 700.? The remainder of his labs are unremarkable.? Troponin testing was negative.? COVID-19 testing was negative.? Chest x-ray showed hyperexpanded lungs but no evidence of volume overload or pneumonia.? Urinalysis did not show evidence of infection.? Patient was admitted for further evaluation given his rapid atrial fibrillation/flutter. Discharge Providers Provider Date of admission: 07/19/21 11:08 Discharge Date: 07/28/21 Primary care physician: Koby Leone MD Consults: 07/18/21 12:15 Consult to Dietitian, Adult Routine Comment: he states he's lost weight but can't remember Reason For Exam: pt states hasn't been eating much 07/18/21 14:07 Consult to Occupational Therapy Evaluate & Treat Comment: Physician Instructions: Evaluate and treat Consult to Physical Therapy Evaluate & Treat Comment: Physician Instructions: Evaluate and Treat 07/21/21 10:47 Consult to General Surgery Routine Comment: Consulting Provider: Michael Melgoza Reason for consultation: GI bleeding Discharge provider: Briana Porter MD Summary Hospital Course Discharge Diagnosis: 1. Chronic Atrial Fibrillation 2. Acute Hypoxic REspiratory Failure 3. Acute right sided Diastolic Heart Failure, EF 60-65% 4.Hypertension 5. hyperlipidiemia 6.COPD with restrictive lung disease 7. Upper GI bleed secondary to gastric ulcer-s/p clipping 8. Acute blood loss anemia, s/p 2 units prbcs Hospital Course: Patient was admitted to the hospital for anemia and atrial fibrillation. The patient's atrial fibrillation was very difficult to control. He did receive 2 units of blood. He tolerated that well. Patient required metoprolol, Cardizem, Cardizem drip, and amiodarone, to finally control his heart rate. Patient continued to have an elevated heart rate. Consultation was obtained with Dr. Franchesca barney who recommended adding digoxin to his regimen. It was understood that if digoxin did not help in addition to the Cardizem metoprolol and amiodarone that the patient would either need AV lauro ablation or ablation of his atrial fibrillation with pacemaker placement. Patient tolerated the treatment without difficulty heart rate improved to 101. He had no shortness of breath or complaints. He was deemed appropriate for transfer to retirement where he will continue to be monitored. Should the patient developed rapid AFib again would recommend transfer to [facility] for definitive electrophysiologic study. Status at Discharge Cognitive/behavioral status at discharge: at baseline, confused Functional status at discharge: uses cane/walker Overall status at discharge: patient is progressing back to baseline Exam Vital Signs (past 8 hours): - 07/28/21 06:00 07/28/21 06:30 07/28/21 07:56 Temperature 98.1 F Pulse Rate 101 H 120 H Respiratory Rate 28 H 18 Blood Pressure 108/65 Pulse Oximetry 92 91 95 07/28/21 08:39 07/28/21 09:11 07/28/21 10:00 Temperature Pulse Rate 124 H Respiratory Rate Blood Pressure 108/64 Pulse Oximetry 96 94 07/28/21 10:46 07/28/21 12:49 Temperature Pulse Rate 121 H 63 Respiratory Rate 17 Blood Pressure 104/55 L Pulse Oximetry 95 Oxygen Delivery Method Nasal Cannula Oxygen Flow Rate 2 Narrative Exam Narrative: Pleasant elderly gentleman in no acute distress Resp Other: Lungs clear to auscultation Cardio Other: Irregularly irregular, normal S1-S2, 2/6 systolic ejection murmur Extrem Other: Extremity no edema Objective Labs Result Diagrams: 07/28/21 05:15 07/28/21 05:15 Labs: Laboratory Results - last 24 hr 07/28/21 07/28/21 05:15 05:15 Hgb 8.3 L Hct 25.7 L Sodium 139 Potassium 3.6 Chloride 96 L Carbon Dioxide 42 H* BUN 16 Creatinine 0.86 Estimated GFR > 60.0 BUN/Creatinine Ratio 18.6 Glucose 103 Calcium 8.5 NT-Pro-B Natriuret Pep 3020 H [facility] Medical History Acquired arteriovenous malformation of stomach Aortic valvular stenosis Atrial fibrillation Atrial flutter, paroxysmal Cholelithiasis Chronic obstructive pulmonary disease Fatigue Gallstone pancreatitis Generalized anxiety disorder History of gastrointestinal hemorrhage History of tobacco abuse Hyperlipidemia Hypertension Memory loss Restrictive lung disease Rheumatoid arthritis Transient cerebral ischemia Surgical History H/O sinus surgery History of aortic valve replacement History of colonoscopy History of esophagogastroduodenoscopy (EGD) History of sinus surgery History of tonsillectomy History of tricuspid valve annuloplasty Status post mitral valve annuloplasty Family History Father Heart disease Hypertension Mother Heart disease Sister Heart disease Cancer Social History household members: none Smoking Status: Former smoker Tobacco: How many years used: 60 alcohol intake: former substance use type: does not use Discharge Plan Discharge Plan Patient Disposition: SNF Transfer to: [facility] Consult as needed: Dental, Hearing, Mental health, Podiatry and Vision Discharge orders & Medications Prescriptions: New quetiapine 25 mg Tablet 50 mg PO BEDTIME 30 Days RF: 0 digoxin 125 mcg (0.125 mg) tablet 125 mcg PO DAILY Qty: 30 RF: 0 amiodarone 200 mg tablet 200 mg PO BID Qty: 60 RF: 0 lorazepam [Ativan] 1 mg tablet 1 mg PO DAILY PRN (Reason: anxiety) 30 Days Qty: 30 RF: 0 Continued atorvastatin [Lipitor] 20 MG tablet 20 mg PO BEDTIME Qty: 0 RF: 0 lorazepam 1 MG tablet 1 mg PO DAILY PRN (Reason: Anxiety) Qty: 0 RF: 0 ascorbic acid (vitamin C) [Vitamin C] 500 mg Tablet 500 mg PO QID RF: 0 diltiazem HCl 180 MG capsule,extended release 24hr 360 mg PO DAILY RF: 0 metoprolol succinate [Toprol XL] 100 MG tablet extended release 24 hr 200 mg PO QAM RF: 0 cyanocobalamin (vitamin B-12) 100 mcg Tablet 100 mcg PO BID RF: 0 sennosides-docusate sodium [Senna-S] 8.6-50 mg Tablet 1 tab PO DAILY PRN (Reason: Constipation) RF: 0 metoprolol succinate 100 mg tablet extended release 24 hr 100 mg PO QPM RF: 0 acetaminophen 500 mg Tablet 500 mg PO Q6H PRN (Reason: Fever Or Pain) RF: 0 pantoprazole 40 mg tablet,delayed release (DR/EC) 40 mg PO BID RF: 0 ferrous sulfate 325 mg (65 mg iron) tablet 325 mg PO DAILY RF: 0 lisinopril 2.5 mg tablet 2.5 mg PO DAILY RF: 0 coenzyme Q10 [CoQ-10] 100 mg Capsule 300 mg PO DAILY RF: 0 cholecalciferol (vitamin D3) [Vitamin D3] 2,000 unit Capsule 2,000 unit PO BID RF: 0 Centrum Silver Men 300-600-300 mcg Tablet 1 tab PO DAILY RF: 0 furosemide [Lasix] 20 MG tablet 20 mg PO QAM RF: 0 Discontinued diphenhydramine-acetaminophen [Tylenol PM Extra Strength] 25-500 mg Tablet 2 tab PO BEDTIME PRN (Reason: Sleep) RF: 0 Follow up/Referrals: Koby Leone MD [Primary Care Provider] - Discharge Health Status Multidrug resistant organism: No MDRO Diet/Activity/Treatments Diet: Low-sodium and Low-cholesterol Liquid consistency: Normal/Thin Food texture: Regular [facility] Reason for rehabilitation: Recovery r/t decondition Rehab type: Physical therapy and Occupational therapy Discharge Data Primary Care Provider: Koby Leone V Quality VTE Deep Vein Thrombosis/Pulmonary Embolism Present on Admission: No
--- NOTE | 2021-07-28 14:15 | PC.NURSE ---
Discharge note: pt transferring to [place]. IV discontinued. Tele discontinued. HR in 60's. Report given to [facility] admission RN. Report also given to [place] ambulance. Pt being transported by [facility] ambulance. All belongings went with patient. Daughter aware, ANGELA Head spoke with daughter. Agreeable with plan.
== END 2021-07-28 14:18 | DRG 308 ==
LOC: ED 09:37 → AC 09:59 → ICU 07-19 20:08 → AC 07-25 18:55
PROVIDERS: Internal Medicine; Internal Medicine Critical Care Medicine; Nurse Practitioner Family; Surgery; Admitting Provider Internal Medicine; Emergency Provider Emergency Medicine; Family Provider Internal Medicine; PCP Internal Medicine; Referring Provider Emergency Medicine; Visit Provider Internal Medicine
PROC: 0DJ08ZZ Inspection of Upper Intestinal Tract, Via Natural or Artificial Opening Endoscopic (ICD-10-PCS; CPT 43235; principal; 2021-07-22 17:00)
DX: I48.20 Chronic atrial fibrillation, unspecified (principal); E43 Unspecified severe protein-calorie malnutrition; K25.4 Chronic or unspecified gastric ulcer with hemorrhage; J96.01 Acute respiratory failure with hypoxia; I50.31 Acute diastolic (congestive) heart failure; D62 Acute posthemorrhagic anemia; J90 Pleural effusion, not elsewhere classified; I48.92 Unspecified atrial flutter; J44.9 Chronic obstructive pulmonary disease, unspecified; G31.84 Mild cognitive impairment of uncertain or unknown etiology; Z68.22 Body mass index [BMI] 22.0-22.9, adult; I11.0 Hypertensive heart disease with heart failure; I10 Essential (primary) hypertension; E78.5 Hyperlipidemia, unspecified; Z66 Do not resuscitate; F41.9 Anxiety disorder, unspecified; Z20.822 Contact with and (suspected) exposure to COVID-19; Z95.2 Presence of prosthetic heart valve; Z87.891 Personal history of nicotine dependence
CPT/HCPCS: 36415; 36430; 43235; 71045; 71275; 80048; 80053; 80076; 81003; 82310; 82550; 83010; 83615; 83690; 83735; 83880; 84132; 84145; 84443; 84484; 85014; 85018; 85025; 85027; 85045; 85610; 85730; 86850; 86900; 86901; 87040; 87070; 87205; 87635; 87797; 93005; 93010; 93306; 94640; 94760; 96361; 96374; 97116; 97129; 97162; 97165; 97530; 97535; 99232; 99284; 99291; C9803; G0378; P9016; C9113; J0282; J0696; J1160; J1650; J1940; J2405; J2543; J3475; J7613; Q9967

== ENCOUNTER 2021-08-20 11:03 | Emergency (ER) | payer OTHER, SELFPAY ==
[2021-07-18 10:05] VITALS: BMI 23.3
[2021-08-20] VITALS (9 sets, daily range): BP systolic 113–151; BP diastolic 53–67; PULSE 48–50; RESP 17–22; TEMP 36.6; O2SAT 90–97; BMI 22.4
[2021-08-20 11:49] LABS: Add Manual Diff / Slide Review NO; Basophils Absolute Auto 0 /uL (0-100); Basophils Percent Auto 0.6 % (0-2); Eosinophils Absolute Auto 0 /uL (0-450); Hematocrit 30.1 % (41-53); Hemoglobin 9.2 g/dL (13.5-17.5); Lymphocytes Absolute Auto 400 /uL (1100-4500); Lymphocytes Percent Auto 6.3 % (25-40); Mean Corpuscular HGB Conc 30.4 % (30-36); Mean Corpuscular Hemoglobin 24.7 PG (26-34); Mean Corpuscular Volume 81.3 fL (80-100); Monocytes Absolute Auto 500 /uL (0-900); Monocytes Percent Auto 6.8 % (3-14); Neutrophils Absolute Auto 6000 /uL (1500-7000); Neutrophils Percent Auto 86.3 % (50-75); Platelet Count 264 X10^3/uL (150-400); Red Cell Distribution Width 17.1 % (11.6-14.8)
--- NOTE | 2021-08-20 11:53 | PC.NURSE ---
Addendum entered by Luisa Olivas R.N. 08/20/21 12:03: Poison Control states there is no suggested observation at this time since the incident happened yesterday afternoon. Will continue to monitor pt. Original Note: This RN called [facility] poison control @ [phone] to notify them of this patient's accidental overdose of Metoprolol 100mg, Diltiazem 360mg, Amiodorone 200mg. Daughter sent a handwritten note with EMS/patient stating father has Alzheimers and accidentally took 6-days worth of medications.
[2021-08-20 11:57] LABS: Alanine Aminotransferase 27 IU/L (<50); Albumin Globulin Ratio 1.6 (1.0-2.8); Alkaline Phosphatase 77 U/L (38-126); Aspartate Aminotransferase 40 IU/L (17-59); Bilirubin Total 0.4 mg/dL (0.2-1.3); Blood Urea Nitrogen 17 mg/dL (9-20); Calcium 8.5 mg/dL (8.4-10.2); Carbon Dioxide 34 mmol/L (22-32); Chloride 96 mmol/L (98-107); Estimated Glomerular Filt Rate > 60.0 mL/min (>60); Globulin 2.5 g/dL (1.7-4.1); Glucose 123 mg/dL (80-110); HEMOLYSIS < 15 (0-50); Lipase 76 U/L (23-300); Potassium 4.2 mmol/L (3.4-5.1); Sodium 137 mmol/L (137-145); Total Protein 6.5 g/dL (6.3-8.2)
--- NOTE | 2021-08-20 11:59 | PC.NURSE ---
Placed pt on 4L O2 to improve O2 sats to 92% while sleeping. Patient mouth breathes while sleeping and sats dropped to 88%. Currently at 92% O2.
[2021-08-20 12:08] LABS: Troponin I < 0.012 ng/mL (0.01-0.034)
--- NOTE | 2021-08-20 12:17 | ED_ITS ---
HPI - Overdose General Chief Complaint: Toxicology Problem Stated Complaint: Weakness/ OD on BP meds Time Seen by Provider: 08/20/21 12:04 Source: EMS Mode of arrival: EMS History of Present Illness HPI Narrative: Patient here for evaluation for possible overdose of his blood pressure medications. Daughter wrote down the medications that she set out for him yesterday. They were 6 days worth and they are missing this morning. Patient denies any chest pain dyspnea. Patient is at baseline with his Alzheimer's and confusion. Denies any pain dyspnea. No falls or injuries. Poison control contacted by nurse. At this time no further intervention. Vital signs are reassuring. I did speak with daughter regarding treatment plan and s omeone well give patient medications instead him taken. They are in plans of getting him to assisted living tomorrow. Denies any recent illness Related Data Home Medications Medication Instructions Recorded Confirmed lorazepam 1 mg tablet 1 mg PO DAILY PRN #0 11/24/17 08/24/21 ascorbic acid (vitamin C) 500 mg 500 mg PO QID 05/21/18 08/24/21 tablet (Vitamin C) metoprolol succinate 100 mg 200 mg PO QAM 05/21/18 08/24/21 tablet,extended release 24 hr (Toprol XL) acetaminophen 500 mg tablet 500 mg PO Q6H PRN 12/01/18 08/24/21 cholecalciferol (vitamin D3) 50 2,000 unit PO BID 12/01/18 08/24/21 mcg (2,000 unit) capsule (Vitamin D3) coenzyme Q10 100 mg capsule 300 mg PO DAILY 12/01/18 08/24/21 (CoQ-10) cyanocobalamin (vitamin B-12) 100 100 mcg PO BID 12/01/18 08/24/21 mcg tablet ferrous sulfate 325 mg (65 mg 325 mg PO DAILY 12/01/18 08/24/21 iron) tablet metoprolol succinate 100 mg 100 mg PO QPM 12/01/18 08/24/21 tablet,extended release 24 hr [id number] acid 300 1 tab PO DAILY 12/01/18 08/24/21 mcg-lycopene 600 mcg-lutein 300 mcg tablet (Centrum Silver Men) Previous Rx's Medication Instructions Recorded lorazepam 1 mg tablet (Ativan) 1 mg PO DAILY PRN 30 Days #30 tab 07/28/21 Allergies Allergy/AdvReac Type Severity Reaction Status Date / Time aspirin [ASPIRIN] Allergy Intermediate HIVES, Verified 06/27/21 14:49 EARS RING lactose [LACTOSE] Allergy Unknown Verified 06/27/21 14:49 Review of Systems Review of Systems Narrative: GENERAL: Denies chills, fatigue, malaise, fever, sweats. HEENT: Denies sinus pain, ear pain, sore throat RESPIRATORY: Denies dyspnea, cough CARDIOVASCULAR: Denies chest pain, palpitations GASTROINTESTINAL: Denies nausea, vomiting, abdominal pain : Denies dysuria, frequency, hematuria MUSCULOSKELETAL: denies muscle or bony pain SKIN: Denies rash, skin lesions NEUROLOGIC: Denies weakness, numbness ROS Unobtainable: All systems reviewed & are unremarkable except as noted in HPI and below Patient History Medical History Acquired arteriovenous malformation of stomach Aortic valvular stenosis Atrial fibrillation Atrial flutter, paroxysmal Cholelithiasis Chronic obstructive pulmonary disease Fatigue Gallstone pancreatitis Generalized anxiety disorder History of gastrointestinal hemorrhage History of tobacco abuse Hyperlipidemia Hypertension Memory loss Restrictive lung disease Rheumatoid arthritis Transient cerebral ischemia Surgical History H/O sinus surgery History of aortic valve replacement History of colonoscopy History of esophagogastroduodenoscopy (EGD) History of sinus surgery History of tonsillectomy History of tricuspid valve annuloplasty Status post mitral valve annuloplasty Family History Father Heart disease Hypertension Mother Heart disease Sister Heart disease Cancer Social History household members: none Smoking Status: Former smoker Tobacco: How many years used: 60 alcohol intake: former substance use type: does not use Smoking Status: Former smoker alcohol intake frequency: holidays/special occasions only Substance Use Type: does not use Exam Narrative Exam Narrative: GENERAL: in no distress, not toxic not dyspneic HEAD: Normocephalic. EYES: Pupils equal round No scleral icterus. NECK: Trachea midline. CARDIOVASCULAR: Regular rate and rhythm without murmurs RESPIRATORY: Clear to auscultation. Breath sounds equal bilaterally. No wheezes, rales, or rhonchi. GASTROINTESTINAL: Abdomen soft, non-tender EXTREMITIES: No gross deformities. BACK: No flank tenderness. NEURO: AOx2. Patient at baseline with not knowing where he is and the date and time. Clear speech. 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 SKIN: Warm and dry PSYCH: Not anxious, is cooperative Initial Vital Signs Initial Vital Signs: Vital Signs Temperature 97.8 F 08/20/21 11:07 Pulse Rate 49 L 08/20/21 11:07 Respiratory Rate 22 08/20/21 11:07 Blood Pressure 151/67 H 08/20/21 11:07 Pulse Oximetry 93 08/20/21 11:07 Course Course Course Narrative: No new issues during course of stay Orders Ordered: ED Orders 08/20/21 11:21 Complete Blood Count AUTO DIFF Stat Comprehensive Metabolic Panel Stat Lipase Stat Troponin I Stat 08/20/21 11:28 EKG-12 Lead Stat Reevaluation(s) Reevaluation #1: Reviewed results with daughter. Spoke to her by phone. Patient at baseline cognition at this time. She agrees for discharge and they are going to visit some assisted living center tomorrow. Sister is involved. Someone will give patient medications instead of him taken himself Time: 12:20 Vital Signs Vital signs: Vital Signs - 8 hr 08/20/21 11:07 08/20/21 11:35 08/20/21 11:37 Temperature 97.8 F Pulse Rate 49 L 50 L 50 L Respiratory Rate 22 19 17 Blood Pressure 151/67 H 121/56 L Pulse Oximetry 93 90 L 90 L 08/20/21 11:39 08/20/21 11:58 08/20/21 11:59 Temperature Pulse Rate 50 L 48 L 48 L Respiratory Rate 18 19 Blood Pressure 117/56 L 113/53 L Pulse Oximetry 92 92 92 08/20/21 12:00 Temperature Pulse Rate Respiratory Rate Blood Pressure 134/58 L Pulse Oximetry MDM - Overdose Differential Diagnosis Differential diagnosis: Likely drug overdose and accidental drug ingestion Lab Data Result diagrams: 08/20/21 11:21 08/20/21 11:21 Labs: Lab Results 08/20/21 08/20/21 08/20/21 Range/Units 11:21 11:21 11:21 WBC 7.0 (4.5-11.0) X10^3/uL RBC 3.70 L (4.5-5.9) X10^6/uL Hgb 9.2 L (13.5-17.5) g/dL Hct 30.1 L (41-53) % MCV 81.3 (80-100) fL MCH 24.7 L (26-34) PG MCHC 30.4 (30-36) % RDW 17.1 H (11.6-14.8) % Plt Count 264 (150-400) X10^3/uL Neut % (Auto) 86.3 H (50-75) % Lymph % (Auto) 6.3 L (25-40) % Charlton % (Auto) 6.8 (3-14) % Eos % (Auto) 0.0 L (2-4) % Baso % (Auto) 0.6 (0-2) % Neut # (Auto) 6000 (9923-9930) /uL Lymph # (Auto) 400 L (1602-1614) /uL Charlton # (Auto) 500 (0-900) /uL Eos # (Auto) 0 (0-450) /uL Baso # (Auto) 0 (0-100) /uL Sodium 137 (137-145) mmol/L Potassium 4.2 (3.4-5.1) mmol/L Chloride 96 L (98-107) mmol/L Carbon Dioxide 34 H (22-32) mmol/L BUN 17 (9-20) mg/dL Creatinine 1.13 (0.66-1.25) mg/dL Estimated GFR > 60.0 (>60) mL/min BUN/Creatinine Ratio 15.0 (6-22) Glucose 123 H (80-110) mg/dL Calcium 8.5 (8.4-10.2) mg/dL Total Bilirubin 0.4 (0.2-1.3) mg/dL AST 40 (17-59) IU/L ALT 27 (<50) IU/L Alkaline Phosphatase 77 (38-126) U/L Troponin I < 0.012 (0.01-0.034) ng/mL Total Protein 6.5 (6.3-8.2) g/dL Albumin 4.0 (3.5-5.0) g/dL Globulin 2.5 (1.7-4.1) g/dL Albumin/Globulin Ratio 1.6 (1.0-2.8) Lipase 76 (23-300) U/L Urine Dip Bedside Urine Glucose Negative Bedside Urine Bilirubin - Negative Bedside Urine Ketone - Negative Urine Specific [facility] 1.015 Bedside Urine Occult Blood - Negative Bedside Urine pH 5.5 Bedside Urine Protein - Negative Bedside Urine Urobilinogen - Negative Bedside Urine Nitrite - Negative Bedside Urine Leukocytes - Negative Esterase ECG Data Interpretation: Junctional rhythm. Rate 50. No ST elevation or depression MDM Narrative Medical decision making narrative: Appropriate for discharge home. Has been over 12 hours since ingestion. Not toxic. Return precautions reviewed with daughter. Poison control was contacted. Exam and laboratory studies and vital signs are reassuring. Discharge Plan Departure Patient Disposition: Home Clinical Impression: Accidental overdose Qualifiers: Encounter type: initial encounter Qualified Code(s): T50.901A - Poisoning by unspecified drugs, medicaments and biological substances, accidental (unintentional), initial encounter Instructions: DI for Safely Taking and Storing Medications -- Adults Activity Restrictions/Additional Instructions: Family and/or provider to give patient his medications. Do not allow patient to take medications himself. See family doctor this week for recheck. Return if worse if any questions or concerns. Prescriptions: No Action lorazepam 1 MG tablet 1 mg PO DAILY PRN (Reason: Anxiety) Qty: 0 RF: 0 ascorbic acid (vitamin C) [Vitamin C] 500 mg Tablet 500 mg PO QID RF: 0 metoprolol succinate [Toprol XL] 100 MG tablet extended release 24 hr 200 mg PO QAM RF: 0 cyanocobalamin (vitamin B-12) 100 mcg Tablet 100 mcg PO BID RF: 0 metoprolol succinate 100 mg tablet extended release 24 hr 100 mg PO QPM RF: 0 acetaminophen 500 mg Tablet 500 mg PO Q6H PRN (Reason: Fever Or Pain) RF: 0 ferrous sulfate 325 mg (65 mg iron) tablet 325 mg PO DAILY RF: 0 coenzyme Q10 [CoQ-10] 100 mg Capsule 300 mg PO DAILY RF: 0 cholecalciferol (vitamin D3) [Vitamin D3] 2,000 unit Capsule 2,000 unit PO BID RF: 0 Centrum Silver Men 300-600-300 mcg Tablet 1 tab PO DAILY RF: 0 lorazepam [Ativan] 1 mg tablet 1 mg PO DAILY PRN (Reason: anxiety) 30 Days Qty: 30 RF: 0 Referrals: Koby Leone MD [Primary Care Provider] -
== END 2021-08-20 12:58 | disposition home or self-care (01) ==
PROVIDERS: Emergency Provider Emergency Medicine; Family Provider Internal Medicine; PCP Internal Medicine
DX: T50.991A Poisoning by other drugs, medicaments and biological substances, accidental (unintentional), initial encounter (principal); I10 Essential (primary) hypertension; Z87.891 Personal history of nicotine dependence
CPT/HCPCS: 36415; 80053; 81003; 83690; 84484; 85025; 93005; 93010; 99284

== ENCOUNTER 2021-08-24 08:53 | Observation (INO) | payer OTHER, SELFPAY ==
[2021-07-18 10:05] VITALS: BMI 23.3
[2021-08-24] VITALS (16 sets, daily range): BP systolic 123–156; BP diastolic 49–93; PULSE 52–86; RESP 15–30; TEMP 36.3–36.9; O2SAT 91–97; BMI 22.8
--- NOTE | 2021-08-24 08:59 | DI.CT.S_ITS ---
PROCEDURE: CT STROKE INDICATIONS: stroke, speech, left sided deficit TECHNIQUE: Noncontrast 4.5 mm thick angled axial sections acquired from the foramen magnum to the vertex, with coronal reformats. For radiation dose reduction, the following was used: automated exposure control, adjustment of mA and/or kV according to patient size. COMPARISON: [facility], CT, CT HEAD/BRAIN WO CON, 01/27/2021, 11:12. FINDINGS: Image quality: Excellent. CSF spaces: Basal cisterns are patent. No extra-axial fluid collections. The ventricles are symmetric in size and shape. Brain: No intracranial bleeds or masses. There is moderate cerebral volume loss for age, with resultant ventricular and sulcal prominence. There are moderate periventricular and deep white matter chronic small vessel ischemic changes. There is intracranial internal carotid artery atherosclerosis. Skull and face: Calvarium and visualized facial bones appear intact, without suspicious lesions. Sinuses: Visualized sinuses and mastoids are clear. IMPRESSION: 1. No acute intracranial abnormalities. 2. Cerebral volume loss and chronic microvascular ischemic changes. This study fulfills neurological imaging criteria for inclusion or exclusion of acute stroke therapies based on available published neurological guidelines. Dictated by: Emigdio Tang M.D. on 08/24/2021 at 9:26 Approved by: Emigdio Tang M.D. on 08/24/2021 at 9:28
--- NOTE | 2021-08-24 09:04 | ED.NEUROSD ---
HPI - Neuro Symptoms/Deficit General Chief Complaint: Neuro Symptoms/Deficit Stated Complaint: stroke symptoms Time Seen by Provider: 08/24/21 08:53 History of Present Illness HPI Narrative: 85-year-old male former smoker with history of paroxysmal atrial fluid, hypertension, aortic valve replacement, hepatitis-C, pulmonary emphysema, CHF presents with a chief complaint of feeling ?off?. He had a bad day yesterday and states that he has been weak and fatigued and noticed that his left arm seems to be acting oddly. He had a house player. By the house today and noticed that he was slurring his words and encouraged him to come to the emergency department. His last known normal is unknown but he is certainly outside of any window for tPA. Additionally, his LAMS score is low and he doesn't appear to be a candidate for CODE IR at this time. He is a poor historian and currently relatively forgetful but denies any recent trauma, fever or chills. He has had no nausea or vomiting but feels fatigued and occasionally breathless. He struggles to tell me his age and the month, it is unknown if this is his baseline. He states his left arm feels numb and tingly in isn't working right. He denies any balance issues and walked in under his own power Of note he was seen here on 08/20 after possibly overdosing on his routine meds On Anticoagulants: No Related Data Home Medications Medication Instructions Recorded Confirmed atorvastatin 20 mg tablet (Lipitor) 20 mg PO BEDTIME #0 05/16/17 07/18/21 lorazepam 1 mg tablet 1 mg PO DAILY PRN #0 11/24/17 07/18/21 ascorbic acid (vitamin C) 500 mg 500 mg PO QID 05/21/18 07/18/21 tablet (Vitamin C) diltiazem HCl 180 mg 360 mg PO DAILY 05/21/18 07/18/21 capsule,extended release 24 hr metoprolol succinate 100 mg 200 mg PO QAM 05/21/18 07/18/21 tablet,extended release 24 hr (Toprol XL) acetaminophen 500 mg tablet 500 mg PO Q6H PRN 12/01/18 07/18/21 cholecalciferol (vitamin D3) 50 2,000 unit PO BID 12/01/18 07/18/21 mcg (2,000 unit) capsule (Vitamin D3) coenzyme Q10 100 mg capsule 300 mg PO DAILY 12/01/18 07/18/21 (CoQ-10) cyanocobalamin (vitamin B-12) 100 100 mcg PO BID 12/01/18 07/18/21 mcg tablet ferrous sulfate 325 mg (65 mg 325 mg PO DAILY 12/01/18 07/18/21 iron) tablet furosemide 20 mg tablet (Lasix) 20 mg PO QAM 12/01/18 07/18/21 lisinopril 2.5 mg tablet 2.5 mg PO DAILY 12/01/18 07/18/21 metoprolol succinate 100 mg 100 mg PO QPM 12/01/18 07/18/21 tablet,extended release 24 hr ucgvdpqr-jio-xfwjj acid 300 1 tab PO DAILY 12/01/18 07/18/21 mcg-lycopene 600 mcg-lutein 300 mcg tablet (Centrum Silver Men) pantoprazole 40 mg tablet,delayed 40 mg PO BID 12/01/18 07/18/21 release sennosides 8.6 mg-docusate sodium 1 tab PO DAILY PRN 12/01/18 07/18/21 50 mg tablet (Senna-S) Previous Rx's Medication Instructions Recorded amiodarone 200 mg tablet 200 mg PO BID #60 tab 07/28/21 digoxin 125 mcg (0.125 mg) tablet 125 mcg PO DAILY #30 tab 07/28/21 lorazepam 1 mg tablet (Ativan) 1 mg PO DAILY PRN 30 Days #30 tab 07/28/21 quetiapine 25 mg tablet 50 mg PO BEDTIME 30 Days tab 07/28/21 Allergies Allergy/AdvReac Type Severity Reaction Status Date / Time aspirin [ASPIRIN] Allergy Intermediate HIVES, Verified 06/27/21 14:49 EARS RING lactose [LACTOSE] Allergy Unknown Verified 06/27/21 14:49 Review of Systems Review of Systems Narrative: GENERAL: See HPI HEENT: Denies sinus pain, ear pain, sore throat, difficulty swallowing, dizziness. RESPIRATORY: Denies dyspnea, cough, wheezing, hemoptysis, sputum. CARDIOVASCULAR: Denies chest pain, palpitations, orthopnea, edema, GASTROINTESTINAL: Denies nausea, vomiting, abdominal pain, diarrhea, constipation, melena. : Denies dysuria, frequency, incontinence, hematuria, urinary retention. MUSCULOSKELETAL: See HPI SKIN: Denies rash, skin lesions, or other NEUROLOGIC: See HPI PSYCHIATRIC: No concerning psychosocial issues. 12 point review of systems is negative except for those stated above Hematologic/Lymphatic On Anticoagulants: No Patient History Medical History Acquired arteriovenous malformation of stomach Aortic valvular stenosis Atrial fibrillation Atrial flutter, paroxysmal Cholelithiasis Chronic obstructive pulmonary disease Fatigue Gallstone pancreatitis Generalized anxiety disorder History of gastrointestinal hemorrhage History of tobacco abuse Hyperlipidemia Hypertension Memory loss Restrictive lung disease Rheumatoid arthritis Transient cerebral ischemia Surgical History H/O sinus surgery History of aortic valve replacement History of colonoscopy History of esophagogastroduodenoscopy (EGD) History of sinus surgery History of tonsillectomy History of tricuspid valve annuloplasty Status post mitral valve annuloplasty Family History Father Heart disease Hypertension Mother Heart disease Sister Heart disease Cancer Social History household members: none Smoking Status: Former smoker Tobacco: How many years used: 60 alcohol intake: former substance use type: does not use Smoking Status: Former smoker alcohol intake frequency: holidays/special occasions only Substance Use Type: does not use Exam Narrative Exam Narrative: GENERAL: [85 year old patient appears stated age. Well-developed patient, in mild distress. Pleasantly confused, GCS 14 (confusion) HEAD: Atraumatic. Normocephalic. EYES: Pupils equal round and reactive. Extraocular motions intact. No scleral icterus. No injection or drainage. ENT: Nose without bleeding, purulent drainage. Throat without erythema, tonsillar hypertrophy or exudate. Airway patent. NECK: Trachea midline. Non tender CARDIOVASCULAR: Regular rate and rhythm without murmurs, gallops, or rubs. RESPIRATORY: Clear to auscultation. Breath sounds equal bilaterally. No wheezes, rales, or rhonchi. GASTROINTESTINAL: Abdomen soft, non-tender, nondistended. EXTREMITIES: No edema or joint tenderness. BACK: Nontender without deformity or crepitance. No flank tenderness. NEURO: Cranial nerves 2-12 grossly intact. See below for NIH stroke scale SKIN: No rash or erythema of visible areas Initial Vital Signs Initial Vital Signs: Vital Signs Temperature 98.4 F 08/24/21 09:01 Pulse Rate 69 08/24/21 09:01 Respiratory Rate 18 08/24/21 09:01 Blood Pressure 151/66 H 08/24/21 09:01 Pulse Oximetry 97 08/24/21 09:01 Scores NIH Stroke Scale Level of Conciousness: Alert, keenly responsive Ask month/age: Answers neither question correctly, aphasic, stuporous, coma Open/close eyes, close hand: Performs both tasks correctly Best gaze horizontal: Normal Visual tan: No visual loss Facial palsy: Normal symetrical movement Left arm drift: Drifts down, not to bed Right arm drift: No drift for full 10 sec Left leg drift: Drifts down, not to bed Right leg drift: No drift for full 5 sec Limb ataxia: Absent Sensory on face/arms/legs: Mild to moderate sensory loss, can tell touch Best language: Mild to moderate, slurs some words Dysarthria: Normal Extinction or inattention: No abnormality Total NIH Stroke scale score: 6 Course Orders Ordered: ED Orders 08/24/21 08:59 CT Stroke Stat EKG-12 Lead Stat 08/24/21 09:08 CT angio head and neck Stat 08/24/21 09:10 Complete Blood Count AUTO DIFF Stat Comprehensive Metabolic Panel Stat Troponin & CK Cardiac Panel Stat 08/24/21 10:01 COVID19 - ADMIT (ADJUNCT FACULTY swab/PCR) Stat 08/24/21 10:06 Urine Drug Screen, Rapid Stat Sodium Chloride (Normal Saline 0.9%) 1,000 mls @ 150 mls/hr IV CONT ALICJA Vital Signs Vital signs: Vital Signs - 8 hr 08/24/21 09:01 Temperature 98.4 F Pulse Rate 69 Respiratory Rate 18 Blood Pressure 151/66 H Pulse Oximetry 97 MDM - Neuro Symptoms/Deficit Lab Data Result diagrams: 08/24/21 09:10 08/24/21 09:10 Labs: Lab Results 08/24/21 08/24/21 Range/Units 09:10 09:10 WBC 7.3 (4.5-11.0) X10^3/uL RBC 4.07 L (4.5-5.9) X10^6/uL Hgb 10.1 L (13.5-17.5) g/dL Hct 33.1 L (41-53) % MCV 81.1 (80-100) fL MCH 24.8 L (26-34) PG MCHC 30.6 (30-36) % RDW 17.0 H (11.6-14.8) % Plt Count 274 (150-400) X10^3/uL Neut % (Auto) 78.7 H (50-75) % Lymph % (Auto) 9.6 L (25-40) % [place] % (Auto) 9.3 (3-14) % Eos % (Auto) 1.0 L (2-4) % Baso % (Auto) 1.4 (0-2) % Neut # (Auto) 5800 (9579-3721) /uL Lymph # (Auto) 700 L (9409-2094) /uL [place] # (Auto) 700 (0-900) /uL Eos # (Auto) 100 (0-450) /uL Baso # (Auto) 100 (0-100) /uL Sodium 138 (137-145) mmol/L Potassium 4.6 (3.4-5.1) mmol/L Chloride 100 (98-107) mmol/L Carbon Dioxide 34 H (22-32) mmol/L BUN 13 (9-20) mg/dL Creatinine 0.95 (0.66-1.25) mg/dL Estimated GFR > 60.0 (>60) mL/min BUN/Creatinine Ratio 13.7 (6-22) Glucose 124 H (80-110) mg/dL Calcium 8.4 (8.4-10.2) mg/dL Total Bilirubin 0.2 (0.2-1.3) mg/dL AST 24 (17-59) IU/L ALT 17 (<50) IU/L Alkaline Phosphatase 67 (38-126) U/L Total Creatine Kinase 22 L (55-170) U/L CK-MB (CK-2) TNP CK-MB (CK-2) Rel Index TNP Troponin I < 0.012 (0.01-0.034) ng/mL Total Protein 6.4 (6.3-8.2) g/dL Albumin 4.0 (3.5-5.0) g/dL Globulin 2.4 (1.7-4.1) g/dL Albumin/Globulin Ratio 1.7 (1.0-2.8) Point of Care Testing Glucose POC 109 Urine Dip Bedside Urine Glucose Negative Bedside Urine Bilirubin - Negative Bedside Urine Ketone - Negative Urine Specific [place] 1.015 Bedside Urine Occult Blood - Negative Bedside Urine pH 7.0 Bedside Urine Protein - Negative Bedside Urine Urobilinogen - Negative Bedside Urine Nitrite - Negative Bedside Urine Leukocytes - Negative Esterase Imaging Data CTA Head/Neck: Radiologist's Impression: Launch?Image [address] [address] [address] Scan Report Signed Patient: Marvin Diaz MR#: [id number] : 1935 Acct:[id number] Age/Sex: 85 / M Date of Service: 08/24/21 Loc: ED Accession Number: [id number] ?? Procedure: CT angio head and neck Ordering Provider: Dinh Hall D.O. PROCEDURE:? CT ANGIO HEAD AND NECK ? INDICATIONS:? stroke, speech, left sided deficit ? TECHNIQUE:? After the administration of intravenous contrast, 1 mm thick sections acquired from the aortic arch through the [place] of [place].? Post-contrast 4.5 mm thick sections then re-acquired from the foramen magnum to the vertex.? 3-dimensional ryttvrg-hbkzrftda-ittjrjwtoe (MIP) and/or volume rendering reformats were acquired of the central intracranial vasculature and neck separately. ? COMPARISON:? [facility], CT, CT HEAD/BRAIN WO CON, 01/27/2021, 11:12.? [facility], CT, CT ANGIO HEAD AND NECK, 01/27/2021, 11:12.? [facility], CT, CT STROKE, 08/24/2021, 9:09. ? FINDINGS:? Image quality:? Excellent.? ? BRAIN:? CSF spaces:? Ventricles are normal in size and shape.? Basal cisterns are patent.? No extra-axial fluid collections.? ? Brain:? No midline shift.? No intracranial bleeds or masses.? Diez-white matter interface appears intact.? ? Skull and face:? Calvarium and facial bones appear intact, without suspicious lesions.? Orbits appear normal.? ? Sinuses:? Sinuses and mastoids are clear.? ? HEAD CT ANGIOGRAPHY:? Anterior circulation:? Intracranial internal carotid arteries are normal in flow. Atherosclerotic calcifications noted in the cavernous and clinoid segments of the internal carotid arteries bilaterally which causes mild stenosis of the vessels. ? The flow within the paired anterior cerebral arteries is normal and symmetric.? The flow within the middle cerebral arteries is normal and symmetric.? The anterior communicating artery is seen.? No aneurysms are seen.? ? Posterior circulation:? Visualized portions of the vertebral arteries demonstrate normal caliber, and join to form a normal appearing basilar artery.? Flow within the posterior cerebral arteries is normal and symmetric.? No aneurysms are seen.? ? Dural sinuses demonstrate normal postcontrast enhancement.? ? NECK CT ANGIOGRAPHY:? Carotid system:? The great vessels demonstrate a conventional anatomy as they arise from the aortic arch.? The origins of the common carotid arteries appear patent.? The common carotid arteries demonstrate normal caliber and courses.? Atherosclerotic plaque noted in the origins of the internal carotid arteries bilaterally which causes less than 50% stenosis of the vessels.? ? Posterior circulation:? The origin of the right vertebral artery appears widely patent.? Atherosclerotic plaque noted in the origin left vertebral artery which causes mild narrowing of the vessel.? The more superior extracranial portions of both vertebral arteries also demonstrate normal courses and calibers.? They join to form a normal appearing basilar artery.? ? Soft tissues:? Visualized neck soft tissues demonstrate no suspicious abnormalities.? ? Bones:? No suspicious bony lesions. Spine degenerative disc disease and facet arthropathy. Visualized cervical spine appears normally aligned.? ? ? IMPRESSION:? ? 1. No acute intracranial disease process. ? 2. No large vessel occlusion, hemodynamically significant vascular stenosis, vascular dissection or aneurysm.? ? Any quantitative measurements of stenosis were performed using NASCET criteria.? ? ? Dictated by: Heather Chaudhary MD, PhD on 08/24/2021 at 9:37 ? ? Approved by: Heather Chaudhary MD, PhD on 08/24/2021 at 9:48 ? CT scan - head: Radiologist's Impression: [address] [address] [address] Scan Report Signed Patient: Marvin Diaz MR#: [id number] : 1935 Acct:[id number] Age/Sex: 85 / M Date of Service: 08/24/21 Loc: ED Accession Number: [id number] ?? Procedure: CT Stroke Ordering Provider: Dinh Hall D.O. PROCEDURE:? CT STROKE ? INDICATIONS:? stroke, speech, left sided deficit ? TECHNIQUE:? Noncontrast 4.5 mm thick angled axial sections acquired from the foramen magnum to the vertex, with coronal reformats.? For radiation dose reduction, the following was used:? automated exposure control, adjustment of mA and/or kV according to patient size.? ? COMPARISON:? [facility], CT, CT HEAD/BRAIN WO CON, 01/27/2021, 11:12. ? FINDINGS:? Image quality:? Excellent.? ? CSF spaces:? Basal cisterns are patent.? No extra-axial fluid collections.? The ventricles are symmetric in size and shape.? ? Brain:? No intracranial bleeds or masses.? There is moderate cerebral volume loss for age, with resultant ventricular and sulcal prominence.? There are moderate periventricular and deep white matter chronic small vessel ischemic changes.? There is intracranial internal carotid artery atherosclerosis.? ? Skull and face:? Calvarium and visualized facial bones appear intact, without suspicious lesions.? ? Sinuses:? Visualized sinuses and mastoids are clear.? ? IMPRESSION:? ? 1. No acute intracranial abnormalities. ? 2. Cerebral volume loss and chronic microvascular ischemic changes. ? ? This study fulfills neurological imaging criteria for inclusion or exclusion of acute stroke therapies based on available published neurological guidelines.? ? ? Dictated by: Emigdio Tang M.D. on 08/24/2021 at 9:26 ? ? Approved by: Emigdio Tang M.D. on 08/24/2021 at 9:28 ? [facility] Narrative Medical decision making narrative: Patient with persisting focal neurologic deficits and no abnormal findings on imaging. He is outside of any window for the potential use of tPA and does not have findings consistent with large vessel occlusion. Patient requires hospitalization for further evaluation and treatment of his illness Discharge Plan Departure Patient Disposition: Admitted as Observation Clinical Impression: Stroke Qualifiers: CVA mechanism: unspecified Qualified Code(s): I63.9 - Cerebral infarction, unspecified Admit Date/Time: 08/24/21 10:36 Admit Provider: Briana Porter
--- NOTE | 2021-08-24 09:08 | DI.CT.S_ITS ---
PROCEDURE: CT ANGIO HEAD AND NECK INDICATIONS: stroke, speech, left sided deficit TECHNIQUE: After the administration of intravenous contrast, 1 mm thick sections acquired from the aortic arch through the [place] of [place]azar. Post-contrast 4.5 mm thick sections then re-acquired from the foramen magnum to the vertex. 3-dimensional dpaeeql-mlmgpykdj-urqmaoeezo (MIP) and/or volume rendering reformats were acquired of the central intracranial vasculature and neck separately. COMPARISON: [facility], CT, CT HEAD/BRAIN WO CON, 01/27/2021, 11:12. [facility], CT, CT ANGIO HEAD AND NECK, 01/27/2021, 11:12. [facility], CT, CT STROKE, 08/24/2021, 9:09. FINDINGS: Image quality: Excellent. BRAIN: CSF spaces: Ventricles are normal in size and shape. Basal cisterns are patent. No extra-axial fluid collections. Brain: No midline shift. No intracranial bleeds or masses. Diez-white matter interface appears intact. Skull and face: Calvarium and facial bones appear intact, without suspicious lesions. Orbits appear normal. Sinuses: Sinuses and mastoids are clear. HEAD CT ANGIOGRAPHY: Anterior circulation: Intracranial internal carotid arteries are normal in flow. Atherosclerotic calcifications noted in the cavernous and clinoid segments of the internal carotid arteries bilaterally which causes mild stenosis of the vessels. The flow within the paired anterior cerebral arteries is normal and symmetric. The flow within the middle cerebral arteries is normal and symmetric. The anterior communicating artery is seen. No aneurysms are seen. Posterior circulation: Visualized portions of the vertebral arteries demonstrate normal caliber, and join to form a normal appearing basilar artery. Flow within the posterior cerebral arteries is normal and symmetric. No aneurysms are seen. Dural sinuses demonstrate normal postcontrast enhancement. NECK CT ANGIOGRAPHY: Carotid system: The great vessels demonstrate a conventional anatomy as they arise from the aortic arch. The origins of the common carotid arteries appear patent. The common carotid arteries demonstrate normal caliber and courses. Atherosclerotic plaque noted in the origins of the internal carotid arteries bilaterally which causes less than 50% stenosis of the vessels. Posterior circulation: The origin of the right vertebral artery appears widely patent. Atherosclerotic plaque noted in the origin left vertebral artery which causes mild narrowing of the vessel. The more superior extracranial portions of both vertebral arteries also demonstrate normal courses and calibers. They join to form a normal appearing basilar artery. Soft tissues: Visualized neck soft tissues demonstrate no suspicious abnormalities. Bones: No suspicious bony lesions. Spine degenerative disc disease and facet arthropathy. Visualized cervical spine appears normally aligned. IMPRESSION: 1. No acute intracranial disease process. 2. No large vessel occlusion, hemodynamically significant vascular stenosis, vascular dissection or aneurysm. Any quantitative measurements of stenosis were performed using NASCET criteria. Dictated by: Heather Chaudhary MD, PhD on 08/24/2021 at 9:37 Approved by: Heather Chaudhary MD, PhD on 08/24/2021 at 9:48
[2021-08-24 09:21] LABS: Add Manual Diff / Slide Review NO; Basophils Absolute Auto 100 /uL (0-100); Basophils Percent Auto 1.4 % (0-2); Eosinophils Absolute Auto 100 /uL (0-450); Hematocrit 33.1 % (41-53); Hemoglobin 10.1 g/dL (13.5-17.5); Lymphocytes Absolute Auto 700 /uL (1100-4500); Lymphocytes Percent Auto 9.6 % (25-40); Mean Corpuscular HGB Conc 30.6 % (30-36); Mean Corpuscular Hemoglobin 24.8 PG (26-34); Mean Corpuscular Volume 81.1 fL (80-100); Monocytes Absolute Auto 700 /uL (0-900); Monocytes Percent Auto 9.3 % (3-14); Neutrophils Absolute Auto 5800 /uL (1500-7000); Neutrophils Percent Auto 78.7 % (50-75); Platelet Count 274 X10^3/uL (150-400); Red Blood Cell Count 4.07 X10^6/uL (4.5-5.9); White Blood Cell Count 7.3 X10^3/uL (4.5-11.0)
[2021-08-24 09:33] LABS: Alanine Aminotransferase 17 IU/L (<50); Albumin Globulin Ratio 1.7 (1.0-2.8); Alkaline Phosphatase 67 U/L (38-126); Aspartate Aminotransferase 24 IU/L (17-59); BUN Creatinine Ratio 13.7 (6-22); Bilirubin Total 0.2 mg/dL (0.2-1.3); Blood Urea Nitrogen 13 mg/dL (9-20); Calcium 8.4 mg/dL (8.4-10.2); Carbon Dioxide 34 mmol/L (22-32); Chloride 100 mmol/L (98-107); Creatine Kinase 22 U/L (55-170); Estimated Glomerular Filt Rate > 60.0 mL/min (>60); Globulin 2.4 g/dL (1.7-4.1); Glucose 124 mg/dL (80-110); HEMOLYSIS < 15 (0-50); Potassium 4.6 mmol/L (3.4-5.1); Sodium 138 mmol/L (137-145); Total Protein 6.4 g/dL (6.3-8.2)
[2021-08-24 09:43] LABS: Troponin I < 0.012 ng/mL (0.01-0.034)
[2021-08-24] MEDS: SODIUM CHLORIDE 0.9% 1,000 ML 150 ML IV (10:55)
[2021-08-24 11:13] LABS: UR Morphine/Opiate cutoff 300 Negative (Negative); Ur Creatinine Normal (Normal); Ur Specific Gravity Normal (Normal); Urine Amphetamines Negative (Negative); Urine Barbiturates Negative (Negative); Urine Benzodiazepines Negative (Negative); Urine Cocaine Negative (Negative); Urine MDMA Negative (Negative); Urine Methadone Negative (Negative); Urine Methamphetamines Negative (Negative); Urine Oxycodone Negative (Negative); Urine Phencyclidine Negative (Negative); Urine Tetrahydrocannabinol Negative (Negative); Urine Tricyclic Antidepressant Negative (Negative); Urine pH Normal (Normal)
[2021-08-24 12:13] LABS: COVID19 - ADMIT (NP swab/PCR) Negative (Negative)
--- NOTE | 2021-08-24 14:14 | PC.NURSE ---
Day shift: Pt on unit from ED at approx 1300 today. NIH 0 at 1221. He is hungry and has eaten and tolerated well. RN swallow eval complete and Pt safe to eat and drink. Dr Castellano informed and diet ordered. Pt denies any nausea or pain. He is A&Ox4 but didn't know todays date or the month. Oriented to room and call light. He agrees to not get OOB w/o help from staff. High fall risk protocol in place.
--- NOTE | 2021-08-24 16:36 | DI.MRI.S_ITS ---
PROCEDURE: MR HEAD/BRAIN WO CON INDICATIONS: Left-sided deficit, clinical concern for stroke TECHNIQUE: Non-contrast axial T1 spin echo, axial T2 fast spin echo, sagittal and axial FLAIR, coronal T2 fast spin echo, axial gradient echo, axial diffusion and ADC through the brain. COMPARISON: [facility], CT, CT STROKE, 08/24/2021, 9:09. [facility], CT, CT ANGIO HEAD AND NECK, 08/24/2021, 9:09. FINDINGS: Image quality: Excellent. CSF spaces: Ventricles appear symmetric in size and shape. Basal cisterns are patent. No extra-axial fluid collections. Brain: No intracranial bleeds or mass effects. There is cerebral volume loss for age. There are periventricular and deep white matter chronic small vessel ischemic changes. Brainstem appears normal. Diffusion-weighted images show no acute ischemic insults. No chronic ischemic insults. Normal intravascular flow voids are present. Skull and face: Calvarial bone marrow is normal in signal. Orbits are normal. Sinuses: Sinuses and mastoids are clear. Right-sided paranasal sinus disease can be seen. There is a left-sided francisco javier bullosa. IMPRESSION: No findings of acute or subacute infarction can be seen. Note is made of age-appropriate brain parenchymal volume loss and chronic small vessel ischemic changes. Dictated by: Lyndon Carolina M.D. on 08/24/2021 at 16:32 Approved by: Lyndon Carolina M.D. on 08/24/2021 at 16:34
--- NOTE | 2021-08-24 16:47 | P.HP_ITS ---
History of Present Illness History of Present Illness Date Patient Seen: 08/24/21 Chief complaint: stroke symptoms Narrative: The patient is an 85-year-old male with a history of atrial fibr illation, atrial flutter, aortic valve repair, COPD with restrictive lung disease, gastric AVM, history of GI bleed, hypertension, hyperlipidemia, and dementia. The patient presented to the hospital for complaints of feeling ?off. By report from the emergency department he had a bad day yesterday and states he was weak and fatigued. He said his left arm seemed to be acting oddly. The reducing machine operator was at the house today and noticed that he was slurring his words and encouraged him to come to the emergency department. Currently the patient does not recall why he is here. He does not recall having a reducing machine operator. He denies any issues with weakness difficulty speaking or any neurological sy mptoms. It should be noted that the patient is a poor historian. He does have known dementia, he had a slums exam when he was here which was 06/29. At this time he denies any headache blurred vision weakness numbness tingling or difficulty with speech. The patient was found to have a NIH stroke scale score of 6 this morning. He was evaluated in the emergency department with a head and neck CTA. The imaging results the revealed no intracranial process, no large vessel occlusion, no hemodynamically significant vascular stenosis, vascular dissection, or aneurysm. Head CT revealed the ventricles were normal in size and shape. Basal cisterns were patent. There is no extra-axial fluid armond ections. No midline shift, no bleeds or masses, will garcia-white interface was normal. The calvarium and facial bones were intact. Patient is admitted to the hospital for further evaluation of a possible stroke versus TIA. Patient History Medical History Acquired arteriovenous malformation of stomach Aortic valvular stenosis Atrial fibrillation Atrial flutter, paroxysmal Cholelithiasis Chronic obstructive pulmonary disease Fatigue Gallstone pancreatitis Generalized anxiety disorder History of gastrointestinal hemorrhage History of tobacco abuse Hyperlipidemia Hypertension Memory loss Restrictive lung disease Rheumatoid arthritis Transient cerebral ischemia Surgical History H/O sinus surgery History of aortic valve replacement History of colonoscopy History of esophagogastroduodenoscopy (EGD) History of sinus surgery History of tonsillectomy History of tricuspid valve annuloplasty Status post mitral valve annuloplasty Family & Social History Family History Father Heart disease Hypertension Mother Heart disease Sister Heart disease Cancer Social History: household members none Safety & Behavioral: Feels Safe in Current Yes Environment Been Physically Hurt or No Threatened By a Person Tobacco & Substance use: Smoking Status Former smoker alcohol intake former alcohol intake frequency holiday/special occasion Substance Use Type does not use Meds Home Medications and Allergies Home Medications Medication Instructions Recorded Confirmed Type lorazepam 1 mg tablet 1 mg PO DAILY PRN #0 11/24/17 08/24/21 History ascorbic acid (vitamin C) 500 mg 500 mg PO QID 05/21/18 08/24/21 History tablet (Vitamin C) metoprolol succinate 100 mg 200 mg PO QAM 05/21/18 08/24/21 History tablet,extended release 24 hr (Toprol XL) acetaminophen 500 mg tablet 500 mg PO Q6H PRN 12/01/18 08/24/21 History cholecalciferol (vitamin D3) 50 2,000 unit PO BID 12/01/18 08/24/21 History mcg (2,000 unit) capsule (Vitamin D3) coenzyme Q10 100 mg capsule 300 mg PO DAILY 12/01/18 08/24/21 History (CoQ-10) cyanocobalamin (vitamin B-12) 100 100 mcg PO BID 12/01/18 08/24/21 History mcg tablet ferrous sulfate 325 mg (65 mg 325 mg PO DAILY 12/01/18 08/24/21 History iron) tablet metoprolol succinate 100 mg 100 mg PO QPM 12/01/18 08/24/21 History tablet,extended release 24 hr [id number]-[id number] acid 300 1 tab PO DAILY 12/01/18 08/24/21 History mcg-lycopene 600 mcg-lutein 300 mcg tablet (Centrum Silver Men) lorazepam 1 mg tablet (Ativan) 1 mg PO DAILY PRN 30 Days #30 tab 07/28/21 08/24/21 Rx Allergies Allergy/AdvReac Type Severity Reaction Status Date / Time aspirin [ASPIRIN] Allergy Intermediate HIVES, Verified 06/27/21 14:49 EARS RING lactose [LACTOSE] Allergy Unknown Verified 06/27/21 14:49 Review of Systems Review of Systems Narrative: Ten point review of systems is negative Exam Vital Signs (past 8 hours): - 08/24/21 08:59 08/24/21 09:00 08/24/21 09:01 Temperature 98.4 F Pulse Rate 64 54 L 69 Respiratory Rate 30 H 29 H 18 Blood Pressure 151/66 H 151/66 H Pulse Oximetry 97 97 08/24/21 09:22 08/24/21 09:30 08/24/21 10:00 Temperature Pulse Rate 52 L 53 L 53 L Respiratory Rate 19 21 22 Blood Pressure 144/91 H 144/66 H Pulse Oximetry 96 94 92 08/24/21 10:01 08/24/21 10:30 08/24/21 11:00 Temperature Pulse Rate 53 L 53 L 54 L Respiratory Rate 23 24 23 Blood Pressure 152/69 H 143/84 H Pulse Oximetry 92 91 92 08/24/21 11:01 08/24/21 11:30 08/24/21 11:31 Temperature Pulse Rate 54 L 55 L 54 L Respiratory Rate 22 27 H 25 H Blood Pressure 134/93 H 156/69 H Pulse Oximetry 92 94 94 08/24/21 12:21 Temperature 98.4 F Pulse Rate 56 L Respiratory Rate 15 Blood Pressure 135/51 L Pulse Oximetry 95 Oxygen Delivery Method Room Air Oxygen Flow Rate 0 Narrative Exam Narrative: Pleasant elderly male lying in bed in no obvious distress [facility] Other: HEENT: Normocephalic atraumatic, extraocular muscles are intact, carmela pharynx is clear with moist mucous membranes, sclerae and icteric, neck is supple, there is no carotid bruits or thyromegaly. Resp Other: Lungs decreased breath sounds but otherwise clear Cardio Other: Cardiac exam: Regular rate and rhythm normal S1-S2 with a 4/6 systolic ejection murmur GI Other: Abdomen: Soft nontender nondistended, no hepatosplenomegaly Neuro Other: NIH stroke scale score is 0, cranial nerves are intact, strength is symmetric and equal, sensations grossly intact, reflexes are brisk and equal, [id number] is intact. Extrem Other: No edema Psych Other: Patient is calm pleasant and appropriate. He has no thought distortion. No hallucinations. He does seem to have some forgetfulness. He cannot tell me that the month at this time Objective Labs Result Diagrams: 08/24/21 09:10 08/24/21 09:10 Labs: Laboratory Results - last 24 hr 08/24/21 08/24/21 08/24/21 09:10 09:10 10:01 WBC 7.3 RBC 4.07 L Hgb 10.1 L Hct 33.1 L MCV 81.1 MCH 24.8 L MCHC 30.6 RDW 17.0 H Plt Count 274 Neut % (Auto) 78.7 H Lymph % (Auto) 9.6 L [place] % (Auto) 9.3 Eos % (Auto) 1.0 L Baso % (Auto) 1.4 Neut # (Auto) 5800 Lymph # (Auto) 700 L [place] # (Auto) 700 Eos # (Auto) 100 Baso # (Auto) 100 Sodium 138 Potassium 4.6 Chloride 100 Carbon Dioxide 34 H BUN 13 Creatinine 0.95 Estimated GFR > 60.0 BUN/Creatinine Ratio 13.7 Glucose 124 H Calcium 8.4 Total Bilirubin 0.2 AST 24 ALT 17 Alkaline Phosphatase 67 Total Creatine Kinase 22 L CK-MB (CK-2) TNP CK-MB (CK-2) Rel Index TNP Troponin I < 0.012 Total Protein 6.4 Albumin 4.0 Globulin 2.4 Albumin/Globulin Ratio 1.7 U Opiates 300ng/mL cut Ur Oxycodone Screen Urine Methadone Screen Ur Barbiturates Screen U Tricyclic Antidepress Ur Phencyclidine Scrn Ur Amphetamines Screen U Methamphetamines Scrn Ur MDMA Scrn (Ecstasy) U Benzodiazepines Scrn Urine Cocaine Screen U Marijuana (THC) Screen SARS-CoV-2 (PCR) Negative 08/24/21 10:06 WBC RBC Hgb Hct MCV MCH MCHC RDW Plt Count Neut % (Auto) Lymph % (Auto) [place] % (Auto) Eos % (Auto) Baso % (Auto) Neut # (Auto) Lymph # (Auto) [place] # (Auto) Eos # (Auto) Baso # (Auto) Sodium Potassium Chloride Carbon Dioxide BUN Creatinine Estimated GFR BUN/Creatinine Ratio Glucose Calcium Total Bilirubin AST ALT Alkaline Phosphatase Total Creatine Kinase CK-MB (CK-2) CK-MB (CK-2) Rel Index Troponin I Total Protein Albumin Globulin Albumin/Globulin Ratio U Opiates 300ng/mL cut Negative Ur Oxycodone Screen Negative Urine Methadone Screen Negative Ur Barbiturates Screen Negative U Tricyclic Antidepress Negative Ur Phencyclidine Scrn Negative Ur Amphetamines Screen Negative U Methamphetamines Scrn Negative Ur MDMA Scrn (Ecstasy) Negative U Benzodiazepines Scrn Negative Urine Cocaine Screen Negative U Marijuana (THC) Screen Negative SARS-CoV-2 (PCR) Assessment & Plan Assessment & Plan narrative: Impression 1. 85-year-old male admitted to the hospital with a constellation of neurological symptoms. These include numbness, slurred speech, weakness of the left arm, all of which have resolved -the patient is at high risk for stroke given his aortic valve replacement, history of atrial fibrillation and atrial flutter, and currently not on anticoagulation -NIH stroke scale currently zero -CTA of Head And Neck unremarkable, No acute intracranial disease process.. No large vessel occlusion, hemodynamically significant vascular stenosis, vascular dissection or aneurysm.? -MRI of brain pending -given significant recent GI bleed bleeding ulcer ( clipped) woud prefer not to anticoagulate, will try low dose aspirin 81 mg daily -patient with dementia ( slums 06/29) recently in the ED for inadvertant OD of medications -PT/OT/Speech consult -AUTOMOTIVE PARTS INTERPRETER consult-not sure patient should remain independently living alone -atrovastatin 20 mg daily Paroxsymal Atrial fibrillation -continue metoprolol at home dose -baby aspirn 81 mg daily Chronic Diastolic Heart Failure -not symptomatic at this time Hypertension -metoprolol as above Hyperlipidemia -atrovastatin COPD/restrictive lung disease not hypoxic will follow Prior history of GI bleed, follow closely Patient is DNR, will note in the record. His daughter is his surrogate decision maker I have utilized all available resources to obtain, update, or review the patient current medications He will be placed in observation. Time Spent With Patient Critical Care time: I spent a total of [] minutes of critical care time on this patient's care today; this time is exclusive of procedural time.
[2021-08-24] MEDS: METOPROLOL ER 50 MG TABLET 100 MG PO (17:23)
[2021-08-24] MEDS: ACETAMINOPHEN 325 MG TABLET 650 MG PO ×2 (19:09→23:36)
[2021-08-24] MEDS: ATORVASTATIN 20 MG TABLET PO (21:43)
[2021-08-25 03:55] VITALS: BP 141/48; PULSE 54; RESP 16; TEMP 36.7; O2SAT 93
--- NOTE | 2021-08-25 09:07 | P.DS_ITS ---
History of Present Illness History of Present Illness Chief complaint: stroke symptoms Narrative: The patient is an 85-year-old male with a history of atrial fibrillation, atrial flutter, aortic valve repair, COPD with restrictive lung disease, gastric AVM, history of GI bleed, hypertension, hyperlipidemia, and d ementia. The patient presented to the hospital for complaints of feeling ?off. By report from the emergency department he had a bad day yesterday and states he was weak and fatigued. He said his left arm seemed to be acting oddly. The plant production manager was at the house today and noticed that he was slurring his words and encouraged him to come to the emergency department. Currently the patient does not recall why he is here. He does not recall having a plant production manager. He denies any issues with weakness difficulty speaking or any neurological symptoms. It should be noted that the patient is a poor historian. He does have known dementia, he had a slums exam when he was here which was 06/29. At this time he denies any headache blurred vision weakness numbness tingling or difficulty with speech. The patient was found to have a NIH stroke scale score of 6 this morning. He was evaluated in the emergency department with a head and neck CTA. The imaging results the revealed no intracranial process, no large vessel occlusion, no hemodynamically significant vascular stenosis, vascular dissection, or aneurysm. Head CT revealed the ventricles were normal in size and shape. Basal cisterns were patent. There is no extra-axial fluid collections. No midline shift, no bleeds or masses, will garcia-white interface was normal. The calvarium and facial bones were intact. Patient is admitted to the hospital for further evaluation of a possible stroke versus TIA. Discharge Providers Provider Date of admission: 08/24/21 10:36 Discharge Date: 08/25/21 Primary care physician: Koby Leone MD Consults: 08/24/21 16:36 Consult to Discharge Planning Routine Comment: Consult to Occupational Therapy Evaluate & Treat Comment: Physician Instructions: Evaluate and treat Consult to Physical Therapy Evaluate & Treat Comment: Physician Instructions: Evaluate and Treat Consult to Speech Therapy Evaluate & Treat Comment: Physician Instructions: Evaluate and treat Discharge provider: Briana Porter MD Summary Hospital Course Discharge Diagnosis: 1. TIA 2. Paroxysmal Atrial Fibrillation 3. AV malformation of the stomach 4. COPD 5. Dementia 6. Restrictive lung disease Hospital Course: Patient was admitted to the hospital for presumed TIA. At the time of admission he had no recollection of speech difficulties left arm weakness or numbness and tingling. The patient was seen and evaluated. An NIH stroke scale score was 0. He did undergo MRI of the brain. This was negative for an acute CVA. Initially it was considered to place the patient on aspirin however he does have a allergy to aspirin and therefore this was discontinued. The patient lives at home alone. I did discuss him returning home with his daughter who is his DPOA, [place]. She will discuss with social Work obtaining additional support for her father. He has had intermittent difficulties at home related to inappropriate lead taking his medication and ongoing forgetfulness. At this time he has no specific complaints. He is delightful. He is sitting having his breakfast. And he is deemed appropriate for discharge home. Status at Discharge Cognitive/behavioral status at discharge: at baseline, confused Functional status at discharge: uses cane/walker Overall status at discharge: patient is back to baseline Exam Vital Signs (past 8 hours): - 08/25/21 03:55 Temperature 98.1 F Pulse Rate 54 L Respiratory Rate 16 Blood Pressure 141/48 H Pulse Oximetry 93 Oxygen Delivery Method Room Air Oxygen Flow Rate 0 Narrative Exam Narrative: Pleasant male sitting in a chair in no obvious distress [facility] Other: Normocephalic atraumatic, extraocular muscles are intact, oropharynx is clear, there is no facial droop Resp Other: Lungs: Clear to auscultation Cardio Other: Cardiac exam: Regular rate and rhythm normal S1-S2 with a 4-6 systolic ejection GI Other: Abdomen: Soft nontender and nondistended Extrem Other: Extremity no edema Objective Labs Result Diagrams: 08/24/21 09:10 08/24/21 09:10 Labs: Laboratory Results - last 24 hr 08/24/21 08/24/21 08/24/21 09:10 09:10 10:01 WBC 7.3 RBC 4.07 L Hgb 10.1 L Hct 33.1 L MCV 81.1 MCH 24.8 L MCHC 30.6 RDW 17.0 H Plt Count 274 Neut % (Auto) 78.7 H Lymph % (Auto) 9.6 L [place] % (Auto) 9.3 Eos % (Auto) 1.0 L Baso % (Auto) 1.4 Neut # (Auto) 5800 Lymph # (Auto) 700 L [place] # (Auto) 700 Eos # (Auto) 100 Baso # (Auto) 100 Sodium 138 Potassium 4.6 Chloride 100 Carbon Dioxide 34 H BUN 13 Creatinine 0.95 Estimated GFR > 60.0 BUN/Creatinine Ratio 13.7 Glucose 124 H Calcium 8.4 Total Bilirubin 0.2 AST 24 ALT 17 Alkaline Phosphatase 67 Total Creatine Kinase 22 L CK-MB (CK-2) TNP CK-MB (CK-2) Rel Index TNP Troponin I < 0.012 Total Protein 6.4 Albumin 4.0 Globulin 2.4 Albumin/Globulin Ratio 1.7 U Opiates 300ng/mL cut Ur Oxycodone Screen Urine Methadone Screen Ur Barbiturates Screen U Tricyclic Antidepress Ur Phencyclidine Scrn Ur Amphetamines Screen U Methamphetamines Scrn Ur MDMA Scrn (Ecstasy) U Benzodiazepines Scrn Urine Cocaine Screen U Marijuana (THC) Screen SARS-CoV-2 (PCR) Negative 08/24/21 10:06 WBC RBC Hgb Hct MCV MCH MCHC RDW Plt Count Neut % (Auto) Lymph % (Auto) [place] % (Auto) Eos % (Auto) Baso % (Auto) Neut # (Auto) Lymph # (Auto) [place] # (Auto) Eos # (Auto) Baso # (Auto) Sodium Potassium Chloride Carbon Dioxide BUN Creatinine Estimated GFR BUN/Creatinine Ratio Glucose Calcium Total Bilirubin AST ALT Alkaline Phosphatase Total Creatine Kinase CK-MB (CK-2) CK-MB (CK-2) Rel Index Troponin I Total Protein Albumin Globulin Albumin/Globulin Ratio U Opiates 300ng/mL cut Negative Ur Oxycodone Screen Negative Urine Methadone Screen Negative Ur Barbiturates Screen Negative U Tricyclic Antidepress Negative Ur Phencyclidine Scrn Negative Ur Amphetamines Screen Negative U Methamphetamines Scrn Negative Ur MDMA Scrn (Ecstasy) Negative U Benzodiazepines Scrn Negative Urine Cocaine Screen Negative U Marijuana (THC) Screen Negative SARS-CoV-2 (PCR) [facility] Medical History Acquired arteriovenous malformation of stomach Aortic valvular stenosis Atrial fibrillation Atrial flutter, paroxysmal Cholelithiasis Chronic obstructive pulmonary disease Fatigue Gallstone pancreatitis Generalized anxiety disorder History of gastrointestinal hemorrhage History of tobacco abuse Hyperlipidemia Hypertension Memory loss Restrictive lung disease Rheumatoid arthritis Transient cerebral ischemia Surgical History H/O sinus surgery History of aortic valve replacement History of colonoscopy History of esophagogastroduodenoscopy (EGD) History of sinus surgery History of tonsillectomy History of tricuspid valve annuloplasty Status post mitral valve annuloplasty Family History Father Heart disease Hypertension Mother Heart disease Sister Heart disease Cancer Social History household members: none Smoking Status: Former smoker Tobacco: How many years used: 60 alcohol intake: former substance use type: does not use Discharge Assessment & Plan Assessment and Plan Assessment: 1. Probable TIA 2. Hypertension 3. Paroxysmal atrial fib 4. COPD 5. Dementia 6. History of aortic valve replacement 7. Aspirin allergy Plan of Treatment: Patient will be discharged home Given his aspirin allergy he will not be placed on aspirin, given his recent GI bleed he will not be placed on Plavix or and anti coagulant I discussed the care with the patient's daughter. She understands the circumstance. Home health will be ordered for him and he will be discharged ho co. Discharge Plan Discharge Plan Patient Disposition: Home Discharge orders & Medications Prescriptions: Continued lorazepam 1 MG tablet 1 mg PO DAILY PRN (Reason: Anxiety) Qty: 0 RF: 0 ascorbic acid (vitamin C) [Vitamin C] 500 mg Tablet 500 mg PO QID RF: 0 metoprolol succinate [Toprol XL] 100 MG tablet extended release 24 hr 200 mg PO QAM RF: 0 cyanocobalamin (vitamin B-12) 100 mcg Tablet 100 mcg PO BID RF: 0 metoprolol succinate 100 mg tablet extended release 24 hr 100 mg PO QPM RF: 0 acetaminophen 500 mg Tablet 500 mg PO Q6H PRN (Reason: Fever Or Pain) RF: 0 ferrous sulfate 325 mg (65 mg iron) tablet 325 mg PO DAILY RF: 0 coenzyme Q10 [CoQ-10] 100 mg Capsule 300 mg PO DAILY RF: 0 cholecalciferol (vitamin D3) [Vitamin D3] 2,000 unit Capsule 2,000 unit PO BID RF: 0 Centrum Silver Men 300-600-300 mcg Tablet 1 tab PO DAILY RF: 0 lorazepam [Ativan] 1 mg tablet 1 mg PO DAILY PRN (Reason: anxiety) 30 Days Qty: 30 RF: 0 Follow up/Referrals: Koby Leone MD [Primary Care Provider] - Discharge Health Status Multidrug resistant organism: No MDRO Diet/Activity/Treatments Diet: Low-fat and Low-sodium Visit Report/Discharge Packet Instructions: Transient Ischemic Attack, DI for Transient Ischemic Attack Discharge Data Primary Care Provider: Koby Leone V Attending Provider: Briana Porter
[2021-08-25 09:22] VITALS: BP 117/43; PULSE 58
[2021-08-25] MEDS: METOPROLOL ER 50 MG TABLET 200 MG PO (09:22)
[2021-08-25] MEDS: SODIUM CHLORIDE 0.9% FLUSH 10 ML IV (09:24)
--- NOTE | 2021-08-25 09:35 | PT.IIE ---
Medical History (Last Reviewed 08/24/21 @ 16:50 by Briana Porter MD) Acquired arteriovenous malformation of stomach Aortic valvular stenosis Atrial fibrillation Atrial flutter, paroxysmal Cholelithiasis Chronic obstructive pulmonary disease Fatigue Gallstone pancreatitis Generalized anxiety disorder History of gastrointestinal hemorrhage History of tobacco abuse Hyperlipidemia Hypertension Memory loss Restrictive lung disease Rheumatoid arthritis Transient cerebral ischemia Physical Therapy Inpatient Evaluation/Re-Eval M1 PT/OT-IP Prior Functional Status Start: 08/25/21 10:05 Freq: NEEDED Status: Active Protocol: Document 08/25/21 09:35 AB (Rec: 08/25/21 10:25 AB [id number]) Medical Review Prior Functional Status Medical History Reviewed Yes Communication able to make needs known Mobility and Gait pt stated that he is modified independent with all mobilities and ambulation using SPC Social History Household Members none Number of Floors (Floors) One Floor Number of Stairs To Enter/Railing? no steps to etner Home Environment Standard Height Toilet,Walk in Shower,Built-In Shower Seat Home Equipment Straight Cane,Hand Held Shower ,Grab Bars Near Toilet,Grab Bars In Shower Additional Social History Comment pt's daughter Medina lives ~ [address] and pt stated that she checks on him daily and assists with groceries and meals M2 PT-IP Current Condition Start: 08/25/21 10:05 Freq: NEEDED Status: Active Protocol: Document 08/25/21 09:35 AB (Rec: 08/25/21 10:25 AB [id number]) Physical Therapy Current Condition Current Condition Evaluation Date 08/25/21 Treatment Diagnosis r/o CVA; difficulty in walking Onset Date 08/24/21 M3 PT-IP Subjective Start: 08/25/21 10:05 Freq: NEEDED Status: Active Protocol: Document 08/25/21 09:35 AB (Rec: 08/25/21 10:25 AB [email or web address]) Subjective Physical Therapy Visit Type Type Initial Evaluation Visit Start Time 09:35 Visit Stop Time 10:05 Total Visit Minutes 30 Number of [employer] DEPARTMENT Visits 0 Physical Therapy Visit Comments Patient Comments agreeable to do PT Therapy Pain Assessment Pain Present Pain Present Denied Pain M4 PT-IP Mobility and Gait Start: 08/25/21 10:05 Freq: NEEDED Status: Active Protocol: Document 08/25/21 09:35 AB (Rec: 08/25/21 10:25 [email or web address]) PT-Bed Mobility Assessment Supine to Sit Supine to Sit Independent Sit to Supine Sit to Supine Independent PT-Transfer Assessment Sit to and From Stand Sit to and from Stand Independent Equipment Transfer Assistive Device Gait Belt,Straight Cane Transfers Transfer Destination Toilet Transfer Technique ambulated Transfer Ability Level of Assist Standby Assistance Comments Mobility Comments pt sitting on chair and agreed to do PT. completed sit to stand from chair independent and ambualted in room using SPC SBA. agreed to ambulate in the hallway and completed ambulation using SPC ~ 200 ft SBA. presents with antalgic gait with increase lateral trunk lean to the R with LLE crossing midline during ambulation with slight LOB but with recovery. Gait Assessment Gait Gait Assistance Required: Standby Assistance Distance (Feet) 200 Able to Maintain Weight Bearing Status Yes During Gait Assistive Devices Assistive Device Gait Belt,Straight Cane Orthotic/Prosthetic Devices or Brace: No Gait Deviations General Gait Pattern Antalgic,Decreased Feet Clearance,Wide Based Gait Factors Limiting Gait Function Factors Limiting Gait Function Decreased Activity Tolerance, Decreased Strength,Difficulty Following Directions,Poor Balance,Poor Safety Awareness PT-Balance Assessment Sitting Balance and Reactions Static Sitting Balance Ability Normal Dynamic Sitting Balance Ability Normal Standing Balance and Reactions Static Standing Balance Ability Good Dynamic Standing Balance Ability Fair Device Used without AD Comments Other Balance Tests/Deviations/Treatment static standing with narrow : ILIR: F+, with EC narrow ILIR F+ 360 turn: steady M5 PT-IP Objective Assessments Start: 08/25/21 10:05 Freq: NEEDED Status: Active Protocol: Document 08/25/21 09:35 AB (Rec: 08/25/21 10:25 [email or web address]) Orientation Orientation/Cognition Level of Alertness Alert Orientation Name,Place,Situation Language Function Ability No Deficits Noted Safety Awareness Decreased Safety Awareness Memory Description Short Term Impaired Gross Range of Motion Lower Extremity ROM Assessment Within Functional Limits Strength Lower Extremity Strength Assessment Within Functional Limits Coordination Assessment Gross Coordination Gross Coordination WNL Sensation Assessment Sensation Gross Sensation WNL Muscle Tone Muscle Tone WNL Yes M6 PT-IP Treatment Start: 08/25/21 10:05 Freq: NEEDED Status: Active Protocol: Document 08/25/21 09:35 AB (Rec: 08/25/21 10:25 [email or web address]) Physical Therapy Treatment Education Education Provided Safety M7 PT-IP Assessment and Plan Start: 08/25/21 10:05 Freq: NEEDED Status: Active Protocol: Document 08/25/21 09:35 AB (Rec: 08/25/21 10:25 AB [id number]) PT Summary Assessment and Plan Potential Rehabilitation Potential Good Status of Condition at Evaluation Stable Summary Impairments Balance,Cognition,Transfers, Gait,Activity Tolerance Assessment Summary PT eval completed. Pt can be modified independent with use of SPC in room and no further PT intervention indicated at this time. pt lives alone but his daughter checks and assists him daily. Pt may go home when medically stable. Frequency of Treatment Frequency Of Treatment Discharge Recommendations To Nursing Amount of Assist Needed Standby Assistance Discharge Recommendations PT Discharge Recommendations Home with Assistance Transportation Needs at Discharge Private Vehicle
--- NOTE | 2021-08-25 09:40 | CM.DPNOTE ---
Faxed referral packet to [facility] at Kari's request. I called and spoke to Alyssa at [facility], and she said they do accept [employer]. Julia Cui CM Asst.
[2021-08-25 10:32] VITALS: BP 134/56; PULSE 57; RESP 16; TEMP 36.4; O2SAT 95
--- NOTE | 2021-08-25 10:33 | SLP.IPNOTE ---
Pt is discharging jome at this time. Will discharge ST orders.
--- NOTE | 2021-08-25 10:42 | CM.DPC ---
DCP/Assessment: Reviewed chart. Patient is a 85yr old male admitted [facility] with [facility]IA. PCP is Dr. Leone. Primary payor is 1)[employer] 2)Self pay. Spoke with provider this AM, she reports that patient is medically stable for d/c today. Patient's TIA symptoms resolved and home health recommended. Met with patient and he is aware and agreeable to plan. Patient reports that he resides alone but has family nearby that check on him daily. Patient provides [employer] with permission to call his daughter/Medina. Placed call to Medina and explained role. She is aware and agreeable to keep close eye on patient once discharged home. Medina notified that HH will be ordered. Patient has no preference in HH agencies therefore, [employer] asked DANILO/Julia to coordinate with agency that accepts insurance. Home Health arranged through [facility] and brochure given to patient. P: Home today with HH provided by [facility]. Daughter in agreement to provide transport. KJS Discharge Planning/Care Management CM Discharge Assessment Start: 08/25/21 10:38 Freq: Status: Active Protocol: Document 08/25/21 10:38 KJS (Rec: 08/25/21 10:42 KJS [id number]) Discharge Planning Assessment Assigned Rating Clerk DORON Gonzalez Contact Information Medina Avitia (daughter) # [phone] Advance Directives? Yes Advance Directives on File No History Provided By Patient,Family Member,Medical Record Has Patient been admitted in last 30 No days? Prior Living Arrangements House Household Members none Type of transporation used prior to Relies on Others admit Independent with ADL's Yes Is patient alert and oriented? Yes Needs Assistance With Home Chores / Shopping Comment Daughter assists patient in the residence. She also drives him to/from appointments, shopping etc. Caregiver for Another No DME Already Rented / Owned Cane Patient/Family Preference Home with Home Health Barriers to Discharge No Discharge Plan Home Transportation Arrangement Family Referrals Initiated Home Health Review Status In Process Next Review Type Continued Stay Review
[2021-08-25 10:58] VITALS: BP 134/56
--- NOTE | 2021-08-25 11:34 | PC.NURSE ---
Addendum entered by Erica Estrada R.N. 08/25/21 11:45: @ 1140 this RN spoke with pt's daughter, Medina regarding d/c instructions and pt's baseline confusion and limited ability to comprehend d/c instructions; Medina declines coming upstairs and states, I can read the paperwork. Pt transferred via wheelchair to private auto at 1145 Original Note: Pt is very pleasant and calm; NIH 0; A&O to self and place; Tele A Fib; LS clear; chair/bed alarm
--- NOTE | 2021-08-25 11:38 | OT.IP.EVAL ---
Past Medical History (Last Reviewed 08/24/21 @ 16:50 by Briana Porter MD) Acquired arteriovenous malformation of stomach Aortic valvular stenosis Atrial fibrillation Atrial flutter, paroxysmal Cholelithiasis Chronic obstructive pulmonary disease Fatigue Gallstone pancreatitis Generalized anxiety disorder H/O sinus surgery History of aortic valve replacement History of colonoscopy History of esophagogastroduodenoscopy (EGD) History of gastrointestinal hemorrhage History of sinus surgery History of tobacco abuse History of tonsillectomy History of tricuspid valve annuloplasty Hyperlipidemia Hypertension Memory loss Restrictive lung disease Rheumatoid arthritis Status post mitral valve annuloplasty Transient cerebral ischemia Surgical History (Last Reviewed 08/24/21 @ 16:50 by Briana Porter MD) H/O sinus surgery History of aortic valve replacement History of colonoscopy History of esophagogastroduodenoscopy (EGD) History of sinus surgery History of tonsillectomy 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 no steps to [place]ner Home Environment Standard Height Toilet,Walk in Shower,Built-In Shower Seat Home Equipment Straight Cane,Hand Held Shower ,Grab Bars Near Toilet,Grab Bars In Shower Additional Social History Comment pt's daughter Medina lives ~ [address] and pt stated that she checks on him daily and assists with groceries and meals M1 PT/OT-IP Prior Functional Status Start: 08/25/21 11:49 Freq: NEEDED Status: Active Protocol: Document 08/25/21 11:15 [facility] (Rec: 08/25/21 12:03 [facility] [id number]) Medical Review Prior Functional Status Medical History Reviewed Yes Communication able to make needs known Mobility and Gait pt stated that he is modified independent with all mobilities and ambulation using SPC Activities of Daily Living and IADL's Pt states able to do all his ADl's and IADl needs including medications and bills. Pt's daughter assist with transportation and shopping needs. Pt states has Meals on Wheels. Social History Household Members none Living Arrangements House Number of Floors (Floors) One Floor Number of Stairs To Enter/Railing? no steps to etner Home Environment Standard Height Toilet,Walk in Shower,Built-In Shower Seat Home Equipment Straight Cane,Hand Held Shower ,Grab Bars Near Toilet,Grab Bars In Shower Additional Social History Comment pt's daughter Medina lives ~ [address] away and pt stated that she checks on him daily and assists with groceries and meals M2 OT-IP Current Condition Start: 08/25/21 11:49 Freq: Status: Active Protocol: Document 08/25/21 11:15 [facility] (Rec: 08/25/21 12:03 [facility] [id number]) Occupational Therapy Current Condition Current Condition Evaluation Date 08/25/21 Treatment Diagnosis TIA Diagnosis Onset Date 08/24/21 M3 OT- IP Subjective and Pain Start: 08/25/21 11:49 Freq: Status: Active Protocol: Document 08/25/21 11:15 [facility] (Rec: 08/25/21 12:03 [facility] [id number]) OT- Subjective Occupational Therapy Visit Type Type Initial Evaluation Visit Start Time 11:15 Visit Stop Time 11:38 Total Visit Minutes 23 Occupational Therapy Visit Comments Patient Comments Pt agreed to work with OT and waiting for his daughter to come and pick him up. Patient/Caregiver Goals TO go home. OT Pain Assessment Pain When Pain Assessed At Rest Pain Present Pain Present Denied Pain M4 OT- IP ADL's Start: 08/25/21 11:49 Freq: Status: Active Protocol: Document 08/25/21 11:15 [facility] (Rec: 08/25/21 12:03 [facility] [id number]) OT [id number]-Azpbjuy General Evaluation Self-Feeding Ability Independent OT ADL-Grooming General Evaluation Grooming Ability Independent OT ADL-Oral Care General Eval Oral Care Ability Independent OT ADL-Dressing General Eval Upper Body Dressing Ability Independent Lower Body Dressing Ability Independent OT ADL-Toileting Comments OT Toileting Comments Pt not having to go . OT ADL-Bathing Comments OT Bathing Comments Pt states stands at home when showering. M5 OT- IP IADL's Start: 08/25/21 11:49 Freq: Status: Active Protocol: Document 08/25/21 11:15 [facility] (Rec: 08/25/21 12:03 [facility] [id number]) OT-Instrumental Activities of Daily Living Home Safety Awareness Home Safety Comments Pt has decreased short term memory issues. Pt states has to write things down things often. Medication Management Medication Management Comments Pt states he just lines up his medications so able to take them. Suggested that he writes down what he needs to take and use a pill organizer. Money Management Money Management Comments Pt states does all the bills on his own, pt would benefit from his daughter to supervise him due to his decreased short term memory needs. Meal Preparation Meal Preparation Comments Pt states uses the microwave and has Meals on Wheels. Driving Driving Comments Pt does not drive. M6 OT- IP Functional Cognition Start: 08/25/21 11:49 Freq: Status: Active Protocol: Document 08/25/21 11:15 [facility] (Rec: 08/25/21 12:03 [facility] [id number]) Cognitive Factors Limiting Selfcare Function Cognitive Ability Level of Alertness Alert Patient Orientation Name,Place,Situation Attention Span Ability Capable of Focused Attention, Capable of Sustained Attention Ability to Follow Commands Able to Follow One Step Commands Memory Description Short Term Impaired Cognitive Comments Cognitive Assessment Comments Pt's main barrier is his decreased short term memory in which may cause for decreased safety awareness. Pt just admitted yesterday and felt that he was in the hospital for a week or longer. OT- Vision and Hearing OT- Hearing Assessment OT- Hearing Assessment WFL OT- Vision Assessment Visual Acuity Glasses All The Time M7 OT- IP Mobility and Balance Start: 08/25/21 11:49 Freq: Status: Active Protocol: Document 08/25/21 11:15 [facility] (Rec: 08/25/21 12:03 [facility] [id number]) OT-Transfer Assessment Sit to and From Stand Sit to and from Stand Independent Transfers Transfer Ability Independent Technique Transfer Destination Chair Devices Transfer Assistive Devices Bed Rail Comments Mobility Comments Pt is independent to use his SPC in the room with good safety and balance. OT- Gait Assessment Comments Gait Ability Comments Independent with SPC in the room. OT- Balance Assessment Sitting Balance and Reactions Static Sitting Balance Ability Normal Dynamic Sitting Balance Ability Normal Standing Balance and Reactions Static Standing Balance Ability Good Dynamic Standing Balance Ability Fair M8 OT- IP Objective Assessments Start: 08/25/21 11:49 Freq: Status: Active Protocol: Document 08/25/21 11:15 [facility] (Rec: 08/25/21 12:03 [facility] [id number]) OT Gross Range of Motion Upper Extremity Range of Motion Assessment Within Functional Limits OT Strength Upper Extremity Strength Assessment Within Functional Limits Comments Strength Comments 5/5 for BUE OT-Muscle Tone Assessment Muscle Tone WNL Yes M9 OT- IP Assessment and Plan Start: 08/25/21 11:49 Freq: Status: Active Protocol: Document 08/25/21 11:15 [facility] (Rec: 08/25/21 12:03 [facility] [id number]) OT Summary Assessment and Plan Potential Rehabilitation Potential Good Analytic Complexity at Evaluation Low Summary OT Impairments Functional Cognition,Bathing Progress Towards Goals Progressing Toward Goals Assessment Summary Pt low complexity and here due to TIA. Pt's main barriers is his decreased short term memory which pt has had prior to this admission and not changed. Pt would benefit from 24/7 available assist to assist with needs for IADL's. Pt waiting on his daughter to come and pick him up. Goals Bathing Goal Independent OT-Other Goals Pt to write down his medications so able to make sure he is taking them accurately. Days to Meet Goals 1 Frequency of Treatment Frequency Of Treatment Once a Day Treatment Plan OT Treatment Plan ADL Training,Functional Cognition Training Discharge Recommendations OT Discharge Recommendations Home with 24/7 Assist Available Transportation Needs at Discharge Private Vehicle
== END 2021-08-25 11:47 | disposition home or self-care (01) ==
LOC: ED 10:23 → AC 10:38
PROVIDERS: Admitting Provider Internal Medicine; Emergency Provider Emergency Medicine; Family Provider Internal Medicine; PCP Internal Medicine; Referring Provider Emergency Medicine; Visit Provider Internal Medicine
DX: R47.81 Slurred speech (principal); R53.1 Weakness; R29.700 NIHSS score 0; J44.9 Chronic obstructive pulmonary disease, unspecified; I48.0 Paroxysmal atrial fibrillation; I10 Essential (primary) hypertension; I50.9 Heart failure, unspecified; F03.90 Unspecified dementia, unspecified severity, without behavioral disturbance, psychotic disturbance, mood disturbance, and anxiety; T39.015A Adverse effect of aspirin, initial encounter; Z87.891 Personal history of nicotine dependence; Z20.822 Contact with and (suspected) exposure to COVID-19
CPT/HCPCS: 70450; 70496; 70498; 70551; 80053; 80305; 81003; 82550; 82962; 84484; 85025; 87635; 93005; 96360; 97161; 97165; 99284; C9803; G0378

== ENCOUNTER 2021-08-31 06:02 | Emergency (ER) | payer OTHER, SELFPAY ==
[2021-08-24 12:06] VITALS: BMI 22.8
[2021-08-31 06:03] VITALS: BP 117/58; PULSE 105; RESP 20; TEMP 36.7; O2SAT 95; BMI 21.7
--- NOTE | 2021-08-31 06:09 | ED.GENADULT ---
HPI - General Adult <Kitty Ortiz MD - Last Filed: 09/01/21 02:30> General Chief complaint: Weakness Stated complaint: weakness/feels like he is dying x3 days Time Seen by Provider: 08/31/21 06:09 History of Present Illness HPI narrative: 85-year-old gentleman with a complex medical history including paroxysmal atrial fibrillation, hypertension, aortic valve replacement congestive heart failure and history of emphysema was discharged from the hospital on August 25 with presumed TIA. He was dropped off by his daughter at 6:00 a.m. this morning with no additional history. He states that he has been off, week, depressed. This is similar to prior complaints. He has significant dementia and does not remember being in the hospital, isn't sure where he lives or with whom he lives and does not recall if he has recently had any fevers, cough, chills. He states that he has been peeing normally and has not had any diarrhea. He does not note that there is any numbness or tingling in his arms or his legs. He is able to ambulate but uses a walker in is quite slow. Speech is fluent. Remainder of medical history and recent events are gleaned from the chart. Related Data Home Medications Medication Instructions Recorded Confirmed lorazepam 1 mg tablet 1 mg PO DAILY PRN #0 11/24/17 08/24/21 ascorbic acid (vitamin C) 500 mg 500 mg PO QID 05/21/18 08/24/21 tablet (Vitamin C) metoprolol succinate 100 mg 200 mg PO QAM 05/21/18 08/24/21 tablet,extended release 24 hr (Toprol XL) acetaminophen 500 mg tablet 500 mg PO Q6H PRN 12/01/18 08/24/21 cholecalciferol (vitamin D3) 50 2,000 unit PO BID 12/01/18 08/24/21 mcg (2,000 unit) capsule (Vitamin D3) coenzyme Q10 100 mg capsule 300 mg PO DAILY 12/01/18 08/24/21 (CoQ-10) cyanocobalamin (vitamin B-12) 100 100 mcg PO BID 12/01/18 08/24/21 mcg tablet ferrous sulfate 325 mg (65 mg 325 mg PO DAILY 12/01/18 08/24/21 iron) tablet metoprolol succinate 100 mg 100 mg PO QPM 12/01/18 08/24/21 tablet,extended release 24 hr tjxrrwjp-pqt-ulnas acid 300 1 tab PO DAILY 12/01/18 08/24/21 mcg-lycopene 600 mcg-lutein 300 mcg tablet (Centrum Silver Men) Allergies Allergy/AdvReac Type Severity Reaction Status Date / Time aspirin [ASPIRIN] Allergy Intermediate HIVES, Verified 06/27/21 14:49 EARS RING lactose [LACTOSE] Allergy Unknown Verified 06/27/21 14:49 Review of Systems <Kitty Ortiz MD - Last Filed: 09/01/21 02:30> Review of Systems ROS Unobtainable: Unobtainable due to mental condition Patient History <Kitty Ortiz MD - Last Filed: 09/01/21 02:30> Medical History Acquired arteriovenous malformation of stomach Aortic valvular stenosis Atrial fibrillation Atrial flutter, paroxysmal Cholelithiasis Chronic obstructive pulmonary disease Fatigue Gallstone pancreatitis Generalized anxiety disorder History of gastrointestinal hemorrhage History of tobacco abuse Hyperlipidemia Hypertension Memory loss Restrictive lung disease Rheumatoid arthritis Transient cerebral ischemia Surgical History H/O sinus surgery History of aortic valve replacement History of colonoscopy History of esophagogastroduodenoscopy (EGD) History of sinus surgery History of tonsillectomy History of tricuspid valve annuloplasty Status post mitral valve annuloplasty Family History Father Heart disease Hypertension Mother Heart disease Sister Heart disease Cancer Social History household members: none Smoking Status: Former smoker Tobacco: How many years used: 60 alcohol intake: former substance use type: does not use Smoking Status: Former smoker alcohol intake frequency: holidays/special occasions only Substance Use Type: does not use Exam <Kitty Ortiz MD - Last Filed: 09/01/21 02:30> Narrative Exam Narrative: General: Healthy appearing, in no acute distress. Well-nourished well-developed HEENT: Moist mucous membranes, normal sclera with reactive pupils, Neck: No JVD, supple Respiratory: Lungs are clear to auscultation, no wheezing no rales no rhonchi. Full and symmetrical air movement Cardiac: Regular rate and rhythm no murmurs no bruits Abdomen: Soft, nontender, good bowel tones, no flank pain Skin: Warm and dry, no rashes Neurologic: Not oriented to time place or events. Globally weak. Right leg seems to be slightly more weak than the left. No obvious aphasias, facial asymmetries or upper extremity abnormalities. Extremities: No trauma, well perfused, left leg with 2+ lower extremity edema and right leg with 1+. Psych: Cooperative, no insight and significant memory dysfunction Initial Vital Signs Initial Vital Signs: Vital Signs Temperature 98.1 F 08/31/21 06:03 Pulse Rate 105 H 08/31/21 06:03 Respiratory Rate 20 08/31/21 06:03 Blood Pressure 117/58 L 08/31/21 06:03 Pulse Oximetry 95 08/31/21 06:03 <Dinh Hall DO - Last Filed: 08/31/21 09:15> Initial Vital Signs Initial Vital Signs: Vital Signs Temperature 98.1 F 08/31/21 06:03 Pulse Rate 105 H 08/31/21 06:03 Respiratory Rate 20 08/31/21 06:03 Blood Pressure 117/58 L 08/31/21 06:03 Pulse Oximetry 95 08/31/21 06:03 Course <Kitty Ortiz MD - Last Filed: 09/01/21 02:30> Orders Ordered: ED Orders 08/31/21 06:16 Complete Blood Count AUTO DIFF Stat Comprehensive Metabolic Panel Stat Lipase Stat Magnesium Stat NT-proBNP (BNP-Adult 18+) Stat Troponin I Stat 08/31/21 06:26 EKG-12 Lead Stat 08/31/21 07:30 COVID19 - ADMIT ([employer] swab/PCR) Stat 08/31/21 07:35 Urinalysis and Microscopic Stat Vital Signs Vital signs: Vital Signs - 8 hr 08/31/21 06:03 08/31/21 07:48 08/31/21 09:04 Temperature 98.1 F Pulse Rate 105 H 99 H 104 H Respiratory Rate 20 18 Blood Pressure 117/58 L 128/63 128/63 Pulse Oximetry 95 95 96 <Dinh Hall DO - Last Filed: 08/31/21 09:15> Course Course Narrative: Patient received in sign-out from Dr. Ortiz. I have performed an independent history and physical He has sitting upright eating his breakfast with no complaints. He states that he felt weak but no longer does. He has a very reassuring set of labs, imaging, EKG and physical exam. Orders Ordered: ED Orders 08/31/21 06:16 Complete Blood Count AUTO DIFF Stat Comprehensive Metabolic Panel Stat Lipase Stat Magnesium Stat NT-proBNP (BNP-Adult 18+) Stat Troponin I Stat 08/31/21 06:26 EKG-12 Lead Stat 08/31/21 07:30 COVID19 - ADMIT ([employer] swab/PCR) Stat 08/31/21 07:35 Urinalysis and Microscopic Stat Reevaluation(s) Reevaluation #1: Patient upright eating breakfast, alert, able to ambulate at baseline, requesting discharge. Vital Signs Vital signs: Vital Signs - 8 hr 08/31/21 06:03 08/31/21 07:48 08/31/21 09:04 Temperature 98.1 F Pulse Rate 105 H 99 H 104 H Respiratory Rate 20 18 Blood Pressure 117/58 L 128/63 128/63 Pulse Oximetry 95 95 96 Medical Decision Making <Kitty Ortiz MD - Last Filed: 09/01/21 02:30> Lab Data Result diagrams: 08/31/21 06:16 08/31/21 06:16 Labs: Lab Results 08/31/21 08/31/21 08/31/21 Range/Units 06:16 06:16 07:30 WBC 8.9 (4.5-11.0) X10^3/uL RBC 3.34 L (4.5-5.9) X10^6/uL Hgb 8.3 L (13.5-17.5) g/dL Hct 27.5 L (41-53) % MCV 82.2 (80-100) fL MCH 24.7 L (26-34) PG MCHC 30.0 (30-36) % RDW 17.6 H (11.6-14.8) % Plt Count 319 (150-400) X10^3/uL Neut % (Auto) 75.9 H (50-75) % Lymph % (Auto) 12.3 L (25-40) % [place] % (Auto) 8.4 (3-14) % Eos % (Auto) 2.4 (2-4) % Baso % (Auto) 1.0 (0-2) % Neut # (Auto) 6800 (4325-1154) /uL Lymph # (Auto) 1100 (8579-2464) /uL [place] # (Auto) 800 (0-900) /uL Eos # (Auto) 200 (0-450) /uL Baso # (Auto) 100 (0-100) /uL Sodium 136 L (137-145) mmol/L Potassium 4.3 (3.4-5.1) mmol/L Chloride 98 (98-107) mmol/L Carbon Dioxide 32 (22-32) mmol/L BUN 21 H (9-20) mg/dL Creatinine 1.00 (0.66-1.25) mg/dL Estimated GFR > 60.0 (>60) mL/min BUN/Creatinine Ratio 21.0 (6-22) Glucose 112 H (80-110) mg/dL Calcium 8.6 (8.4-10.2) mg/dL Magnesium 2.1 (1.6-2.3) mg/dL Total Bilirubin 0.3 (0.2-1.3) mg/dL AST 28 (17-59) IU/L ALT 19 (<50) IU/L Alkaline Phosphatase 56 (38-126) U/L Troponin I < 0.012 (0.01-0.034) ng/mL NT-Pro-B Natriuret Pep 1120 H (<450) pg/mL Total Protein 6.7 (6.3-8.2) g/dL Albumin 4.2 (3.5-5.0) g/dL Globulin 2.5 (1.7-4.1) g/dL Albumin/Globulin Ratio 1.7 (1.0-2.8) Lipase 127 (23-300) U/L Urine Color Urine Appearance Urine pH (4.5-8.0) Ur Specific Wheeler (1.000-1.035) Urine Protein (Negative) Urine Glucose (UA) (Negative) g/dL Urine Ketones (NEGATIVE) Urine Occult Blood (Negative) Urine Nitrate (Negative) Urine Bilirubin (NEGATIVE) Urine Urobilinogen (0.2) E.U./dL Ur Leukocyte Esterase (NEGATIVE) Urine RBC (0-5/HPF) Urine WBC (0-5/HPF) Urine Bacteria (None) Ur Culture Indicated? Micro UA Comment SARS-CoV-2 (PCR) Negative (Negative) 08/31/21 Range/Units 07:35 WBC (4.5-11.0) X10^3/uL RBC (4.5-5.9) X10^6/uL Hgb (13.5-17.5) g/dL Hct (41-53) % MCV (80-100) fL MCH (26-34) PG MCHC (30-36) % RDW (11.6-14.8) % Plt Count (150-400) X10^3/uL Neut % (Auto) (50-75) % Lymph % (Auto) (25-40) % [place] % (Auto) (3-14) % Eos % (Auto) (2-4) % Baso % (Auto) (0-2) % Neut # (Auto) (9726-6300) /uL Lymph # (Auto) (6046-3237) /uL [place] # (Auto) (0-900) /uL Eos # (Auto) (0-450) /uL Baso # (Auto) (0-100) /uL Sodium (137-145) mmol/L Potassium (3.4-5.1) mmol/L Chloride (98-107) mmol/L Carbon Dioxide (22-32) mmol/L BUN (9-20) mg/dL Creatinine (0.66-1.25) mg/dL Estimated GFR (>60) mL/min BUN/Creatinine Ratio (6-22) Glucose (80-110) mg/dL Calcium (8.4-10.2) mg/dL Magnesium (1.6-2.3) mg/dL Total Bilirubin (0.2-1.3) mg/dL AST (17-59) IU/L ALT (<50) IU/L Alkaline Phosphatase (38-126) U/L Troponin I (0.01-0.034) ng/mL NT-Pro-B Natriuret Pep (<450) pg/mL Total Protein (6.3-8.2) g/dL Albumin (3.5-5.0) g/dL Globulin (1.7-4.1) g/dL Albumin/Globulin Ratio (1.0-2.8) Lipase (23-300) U/L Urine Color Yellow Urine Appearance Clear Urine pH 7.0 (4.5-8.0) Ur Specific Wheeler 1.010 (1.000-1.035) Urine Protein Negative (Negative) Urine Glucose (UA) Negative (Negative) g/dL Urine Ketones Negative (NEGATIVE) Urine Occult Blood Negative (Negative) Urine Nitrate Negative (Negative) Urine Bilirubin Negative (NEGATIVE) Urine Urobilinogen 0.2 (0.2) E.U./dL Ur Leukocyte Esterase Negative (NEGATIVE) Urine RBC None seen (0-5/HPF) Urine WBC None seen (0-5/HPF) Urine Bacteria None seen (None) Ur Culture Indicated? Cult not indicated Micro UA Comment Microscopic normal SARS-CoV-2 (PCR) (Negative) MDM Narrative Medical decision making narrative: 85-year-old gentleman dropped off by his daughter with significant cognitive deficits and nonspecific complaints of being off. Will begin medical workup looking for obvious abnormalities. No evidence of acute stroke at this time with admission 5 days ago he had had some left-sided weakness that is not appreciated today. He has no localizing symptoms. Care will be turned over to Dr. Hall at shift change. <Dinh Hall, DO - Last Filed: 08/31/21 09:15> Lab Data Labs: Lab Results 08/31/21 08/31/21 08/31/21 Range/Units 06:16 06:16 07:30 WBC 8.9 (4.5-11.0) X10^3/uL RBC 3.34 L (4.5-5.9) X10^6/uL Hgb 8.3 L (13.5-17.5) g/dL Hct 27.5 L (41-53) % MCV 82.2 (80-100) fL MCH 24.7 L (26-34) PG MCHC 30.0 (30-36) % RDW 17.6 H (11.6-14.8) % Plt Count 319 (150-400) X10^3/uL Neut % (Auto) 75.9 H (50-75) % Lymph % (Auto) 12.3 L (25-40) % [place] % (Auto) 8.4 (3-14) % Eos % (Auto) 2.4 (2-4) % Baso % (Auto) 1.0 (0-2) % Neut # (Auto) 6800 (2131-1595) /uL Lymph # (Auto) 1100 (0437-5780) /uL [place] # (Auto) 800 (0-900) /uL Eos # (Auto) 200 (0-450) /uL Baso # (Auto) 100 (0-100) /uL Sodium 136 L (137-145) mmol/L Potassium 4.3 (3.4-5.1) mmol/L Chloride 98 (98-107) mmol/L Carbon Dioxide 32 (22-32) mmol/L BUN 21 H (9-20) mg/dL Creatinine 1.00 (0.66-1.25) mg/dL Estimated GFR > 60.0 (>60) mL/min BUN/Creatinine Ratio 21.0 (6-22) Glucose 112 H (80-110) mg/dL Calcium 8.6 (8.4-10.2) mg/dL Magnesium 2.1 (1.6-2.3) mg/dL Total Bilirubin 0.3 (0.2-1.3) mg/dL AST 28 (17-59) IU/L ALT 19 (<50) IU/L Alkaline Phosphatase 56 (38-126) U/L Troponin I < 0.012 (0.01-0.034) ng/mL NT-Pro-B Natriuret Pep 1120 H (<450) pg/mL Total Protein 6.7 (6.3-8.2) g/dL Albumin 4.2 (3.5-5.0) g/dL Globulin 2.5 (1.7-4.1) g/dL Albumin/Globulin Ratio 1.7 (1.0-2.8) Lipase 127 (23-300) U/L Urine Color Urine Appearance Urine pH (4.5-8.0) Ur Specific Wheeler (1.000-1.035) Urine Protein (Negative) Urine Glucose (UA) (Negative) g/dL Urine Ketones (NEGATIVE) Urine Occult Blood (Negative) Urine Nitrate (Negative) Urine Bilirubin (NEGATIVE) Urine Urobilinogen (0.2) E.U./dL Ur Leukocyte Esterase (NEGATIVE) Urine RBC (0-5/HPF) Urine WBC (0-5/HPF) Urine Bacteria (None) Ur Culture Indicated? Micro UA Comment SARS-CoV-2 (PCR) Negative (Negative) 08/31/21 Range/Units 07:35 WBC (4.5-11.0) X10^3/uL RBC (4.5-5.9) X10^6/uL Hgb (13.5-17.5) g/dL Hct (41-53) % MCV (80-100) fL MCH (26-34) PG MCHC (30-36) % RDW (11.6-14.8) % Plt Count (150-400) X10^3/uL Neut % (Auto) (50-75) % Lymph % (Auto) (25-40) % [place] % (Auto) (3-14) % Eos % (Auto) (2-4) % Baso % (Auto) (0-2) % Neut # (Auto) (7348-2930) /uL Lymph # (Auto) (9812-0124) /uL [place] # (Auto) (0-900) /uL Eos # (Auto) (0-450) /uL Baso # (Auto) (0-100) /uL Sodium (137-145) mmol/L Potassium (3.4-5.1) mmol/L Chloride (98-107) mmol/L Carbon Dioxide (22-32) mmol/L BUN (9-20) mg/dL Creatinine (0.66-1.25) mg/dL Estimated GFR (>60) mL/min BUN/Creatinine Ratio (6-22) Glucose (80-110) mg/dL Calcium (8.4-10.2) mg/dL Magnesium (1.6-2.3) mg/dL Total Bilirubin (0.2-1.3) mg/dL AST (17-59) IU/L ALT (<50) IU/L Alkaline Phosphatase (38-126) U/L Troponin I (0.01-0.034) ng/mL NT-Pro-B Natriuret Pep (<450) pg/mL Total Protein (6.3-8.2) g/dL Albumin (3.5-5.0) g/dL Globulin (1.7-4.1) g/dL Albumin/Globulin Ratio (1.0-2.8) Lipase (23-300) U/L Urine Color Yellow Urine Appearance Clear Urine pH 7.0 (4.5-8.0) Ur Specific [place] 1.010 (1.000-1.035) Urine Protein Negative (Negative) Urine Glucose (UA) Negative (Negative) g/dL Urine Ketones Negative (NEGATIVE) Urine Occult Blood Negative (Negative) Urine Nitrate Negative (Negative) Urine Bilirubin Negative (NEGATIVE) Urine Urobilinogen 0.2 (0.2) E.U./dL Ur Leukocyte Esterase Negative (NEGATIVE) Urine RBC None seen (0-5/HPF) Urine WBC None seen (0-5/HPF) Urine Bacteria None seen (None) Ur Culture Indicated? Cult not indicated Micro UA Comment Microscopic normal SARS-CoV-2 (PCR) (Negative) MDM Narrative Medical decision making narrative: 85-year-old gentleman dropped off by his daughter with significant cognitive deficits and nonspecific complaints of being off. Will begin medical workup looking for obvious abnormalities. No evidence of acute stroke at this time with admission 5 days ago he had had some left-sided weakness that is not appreciated today. He has no localizing symptoms. Care will be turned over to Dr. Hall at shift change. Patient not feeling weak or fatigued, eating and drinking without difficulty, ambulating, labs are very reassuring. It is unclear what led to the symptoms he has been having the past few days but there is no obvious evidence of my diagnosis which would require specific intervention. Return precautions given and questions answered to the apparent satisfaction. Daughter coming to pick the patient from [place]. Discharge Plan Departure Patient Disposition: Home Clinical Impression: Weak, Feared complaint without diagnosis Instructions: DI for Muscle Weakness Activity Restrictions/Additional Instructions: *You have been diagnosed with [episode of weakness, resolved. Your history, physical exam, labs, EKG are very reassuring. COVID test is negative *What to do: *Please continue to take your regular medications as directed. [ ] New medication prescriptions sent to your pharmacy: [ ] [ ] New medication written as a paper prescription [x ] No new medications given *Please follow up with your primary care provider in 2-3 days, call for an appointment. Let them know you were seen in the Emergency Department and that we ask that you be seen in follow up. We will electronically transmit a record of today's note if your PCP is in our system *If you do not have a primary care provider please contact the [facility] Resource line at [phone]. They will ask some questions about your medical history and help get you set up with a doctor in the community. *Return to Emergency Department if you should have any new, worsening or concerning symptoms, such as [fever greater than 101 F, shaking chills, worsening pain, persistent vomiting or other bothersome symptoms] Prescriptions: No Action lorazepam 1 MG tablet 1 mg PO DAILY PRN (Reason: Anxiety) Qty: 0 RF: 0 ascorbic acid (vitamin C) [Vitamin C] 500 mg Tablet 500 mg PO QID RF: 0 metoprolol succinate [Toprol XL] 100 MG tablet extended release 24 hr 200 mg PO QAM RF: 0 cyanocobalamin (vitamin B-12) 100 mcg Tablet 100 mcg PO BID RF: 0 metoprolol succinate 100 mg tablet extended release 24 hr 100 mg PO QPM RF: 0 acetaminophen 500 mg Tablet 500 mg PO Q6H PRN (Reason: Fever Or Pain) RF: 0 ferrous sulfate 325 mg (65 mg iron) tablet 325 mg PO DAILY RF: 0 coenzyme Q10 [CoQ-10] 100 mg Capsule 300 mg PO DAILY RF: 0 cholecalciferol (vitamin D3) [Vitamin D3] 2,000 unit Capsule 2,000 unit PO BID RF: 0 Centrum Silver Men 300-600-300 mcg Tablet 1 tab PO DAILY RF: 0 Referrals: Koby Leone MD [Primary Care Provider] -
[2021-08-31 06:32] LABS: Add Manual Diff / Slide Review NO; Basophils Absolute Auto 100 /uL (0-100); Eosinophils Absolute Auto 200 /uL (0-450); Eosinophils Percent Auto 2.4 % (2-4); Hematocrit 27.5 % (41-53); Hemoglobin 8.3 g/dL (13.5-17.5); Lymphocytes Absolute Auto 1100 /uL (1100-4500); Lymphocytes Percent Auto 12.3 % (25-40); Mean Corpuscular Hemoglobin 24.7 PG (26-34); Mean Corpuscular Volume 82.2 fL (80-100); Monocytes Absolute Auto 800 /uL (0-900); Monocytes Percent Auto 8.4 % (3-14); Neutrophils Absolute Auto 6800 /uL (1500-7000); Neutrophils Percent Auto 75.9 % (50-75); Platelet Count 319 X10^3/uL (150-400); Red Blood Cell Count 3.34 X10^6/uL (4.5-5.9); Red Cell Distribution Width 17.6 % (11.6-14.8); White Blood Cell Count 8.9 X10^3/uL (4.5-11.0)
[2021-08-31 06:41] LABS: Alanine Aminotransferase 19 IU/L (<50); Albumin 4.2 g/dL (3.5-5.0); Albumin Globulin Ratio 1.7 (1.0-2.8); Alkaline Phosphatase 56 U/L (38-126); Aspartate Aminotransferase 28 IU/L (17-59); Bilirubin Total 0.3 mg/dL (0.2-1.3); Blood Urea Nitrogen 21 mg/dL (9-20); Calcium 8.6 mg/dL (8.4-10.2); Carbon Dioxide 32 mmol/L (22-32); Chloride 98 mmol/L (98-107); Estimated Glomerular Filt Rate > 60.0 mL/min (>60); Globulin 2.5 g/dL (1.7-4.1); Glucose 112 mg/dL (80-110); HEMOLYSIS < 15 (0-50); Lipase 127 U/L (23-300); Magnesium 2.1 mg/dL (1.6-2.3); Potassium 4.3 mmol/L (3.4-5.1); Sodium 136 mmol/L (137-145); Total Protein 6.7 g/dL (6.3-8.2)
[2021-08-31 06:53] LABS: NT-proBNP (BNP-Adult 18+) 1120 pg/mL (<450); Troponin I < 0.012 ng/mL (0.01-0.034)
[2021-08-31 07:43] LABS: Appearance Urine UA CLEAR; Bilirubin Urine UA NEGATIVE (NEGATIVE); Color Urine UA YELLOW; Glucose Urine UA NEGATIVE (Negative); Ketones Urine UA NEGATIVE (NEGATIVE); Leukocyte Esterase Urine UA NEGATIVE (NEGATIVE); Nitrite Urine UA NEGATIVE (Negative); Occult Blood Urine UA NEGATIVE (Negative); Protein Urine UA NEGATIVE (Negative); Urobilinogen Urine UA 0.2 E.U./dL (0.2)
[2021-08-31 07:48] VITALS: BP 128/63; PULSE 99; O2SAT 95
[2021-08-31 07:49] LABS: Bacteria Urine None Seen; Culture Indicated Urine Cult Not Indicated; RBC Urine None Seen (0-5/HPF); Urine Comments Microscopic Normal; WBC Urine None Seen (0-5/HPF)
--- NOTE | 2021-08-31 07:49 | PC.NURSE ---
When asked what he meant when he checked in stating I feel like I was dying pt states that he was feeling like he was just fading away for the past 4 days, becoming weaker and weaker. I asked him how he is feeling at this moment and he states I feel great! Can I get some breakfast?
[2021-08-31 08:35] LABS: COVID19 - ADMIT (NP swab/PCR) Negative (Negative)
[2021-08-31 09:04] VITALS: BP 128/63; PULSE 104; RESP 18; O2SAT 96
== END 2021-08-31 09:17 | disposition home or self-care (01) ==
PROVIDERS: Emergency Medicine; Emergency Provider Emergency Medicine; Family Provider Internal Medicine; PCP Internal Medicine
DX: R53.1 Weakness (principal); I49.9 Cardiac arrhythmia, unspecified; Z20.822 Contact with and (suspected) exposure to COVID-19
CPT/HCPCS: 36415; 80053; 81001; 83690; 83735; 83880; 84484; 85025; 87635; 93005; 99284; C9803